=== PATIENT | female | born 1960 | race Caucasian/White ===

== ENCOUNTER 2020-10-29 07:25 | Observation (INO) | payer MEDICARE, SELFPAY ==
[2020-10-29] VITALS (11 sets, daily range): BP systolic 104–133; BP diastolic 48–71; PULSE 52–74; RESP 12–18; TEMP 36–36.3; O2SAT 95–100; BMI 34.2
--- NOTE | ~2020-10-29 | CT_ITS ---
EXAMINATION: CT brain wo con DATE: 10/29/2020 08:07 INDICATION: Fall yesterday. Altered mental state. Lethargy, slurred speech, vomiting. TECHNIQUE: Computed tomography (CT) of the head was performed without intravenous contrast. The mA wa s adjusted according to patient size. Iterative reconstruction technique was employed. Exam dose: 60 5.33 mGy-cm total exam DLP. COMPARISON: 10/18/2018 CT brain FINDINGS: Right parietal craniotomy is again noted, with chronic underlying surgical clips and enceph alomalacia of the right frontoparietal area extending into the right basal ganglia, stable since 10/18. There is compensatory dilatation of the body and trigone of the right lateral ventricle. No intracranial mass lesion or hemorrhage or recent cerebrovascular accident, midline shift or mass e ffect effect or subdural or epidural hematoma is detected. No fracture or bone destruction of the cranial vault. There is patchy opacification of ethmoid air cells bilaterally and extensive opacification of the rig ht sphenoid sinus, mild mucoperiosteal thickening of the frontal sinuses and left sphenoid sinus. The maxillary sinuses are largely excluded from this examination. The mastoid air cells are unremarkable. IMPRESSION: Status post right craniotomy. Chronic right frontal encephalomalacia, stable since 2008 No acute intracranial finding or significant change since 10/18/2008 Reviewed, dictated and finalized at [facility] Reviewed, dictated and finalized at [facility]. IMPRESSION: Status post right craniotomy. Chronic right frontal encephalomalac ia, stable since 10/18/2008 No acute intracranial finding or significant change since 10/18/2008
--- NOTE | ~2020-10-29 | CT_ITS ---
EXAMINATION: CT cervical spine wo con DATE: 10/29/2020 08:07 INDICATION: Patient fell yesterday. Altered mental state. Vomiting, lethargy, slurred speech. TECHNIQUE: Computed tomography (CT) of the cervical spine was performed without intravenous contrast. Automated exposure control and iterative reconstruction technique were employed. Exam dose: 401.38 mGy-cm total exam DLP. COMPARISON: None FINDINGS: C1 and C2 are normally aligned and the odontoid process is intact. No fracture or dislocati on or locked facet or prevertebral soft tissue swelling. There is severe degenerative disc disease at C5-6 and C6-7. There is degenerative change at the apoph yseal joints throughout the cervical spine. Prominent uncovertebral joint spurring at C5-6 and C6-7. IMPRESSION: Cervical spondylosis; no fracture or dislocation or locked facet Reviewed, dictated and finalized at [facility] Reviewed, dictated and finalized at [facility].
--- NOTE | 2020-10-29 07:33 | ECG_ITS ---
Measurements Intervals [place] Rate: 68 P: 37 NE: 189 QRS: 28 QRSD: 110 T: 64 QT: 399 QTc: 426 Interpretive Statements SINUS RHYTHM INCOMPLETE RIGHT BUNDLE BRANCH BLOCK BASELINE ARTIFACT- I, II, III, AVR, AVL, AVF, V1-V3 BORDERLINE ECG Electronically Signed On 10-29-2020 7:36:22 CDT by Malachi Davidson D.O.
[2020-10-29 07:34] LABS: Glucose Point of Care 157 (65-105)
--- NOTE | 2020-10-29 07:58 | ED.GENADULT ---
HPI - General Adult General Chief complaint: Altered Mental Status Stated complaint: altered loc/fall yest/slurred speech Time Seen by Provider: 10/29/20 07:31 Source: patient, family and EMS History of Present Illness HPI narrative: Patient is a 60 y/o female brought in by EMS for altered mental status. Per , patient fell around 11:00 PM last and she was not able to get up. She slept on floor overnight and noticed she was confused around 6:00 AM. He states that she falls frequent and she had history of stroke resulting in left sided weakness. However, she is usually awake and alert at baseline. Patient is confused and unable to provide additional reliable history. Related Data Home Medications Medication Instructions Recorded Confirmed Unable to Obtain Home Medications 10/29/20 10/29/20 Allergies Allergy/AdvReac Type Severity Reaction Status Date / Time Penicillins Allergy Unknown Verified 10/29/20 11:39 [facility] Past Medical History Medical History (Updated 10/29/20 @ 14:47 by Maine Moreira MD) Cerebral aneurysm Status post coiling. Chronic pain syndrome Chronic back pain and lower extremity pain due to venous stasis ulcers. On long-term opioids and medical marijuana. 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 Residual left-sided weakness. Venous stasis ulcer Surgical History Surgical History (Updated 10/29/20 @ 14:43 by Salima Pratt PA-C) History of 2 sections History of colostomy History of craniotomy Related to cerebral aneurysm rupture and hemorrhagic stroke at the age of 20. History of hysterectomy Status post coil embolization of cerebral aneurysm Family History Family History (Updated 10/29/20 @ 14:32 by Salima Pratt PA-C) Mother Diabetes mellitus Sibling Diabetes mellitus Sibling Leukemia Other Family history of arthritis Social History Social History (Updated 10/29/20 @ 14:31 by Salima Pratt PA-C) Social History: Surrogate decision maker: Seymour Urias, . Code status: Full code. Smoking status: Former smoker Alcohol intake: never Substance use: current Substance use type: marijuana Other substance usage details: Medical marijuana. Last use: 10/28/2020 Additional living arrangements comments: Resides in [place] with her . Additional occupation/education comments: Disabled. Gender identity (if verbalized by the patient): Female Spiritual care concerns: No Exam Const: General: no acute distress and well developed Orientation/consciousness: oriented to person, oriented to place, confusion and Other orientation findings (disoriented to time) HENMT: Head: normocephalic Ears: external ears normal General nose exam: Normal external nose present Eyes: General: appearance normal, both eyes and all related structures Conjunctivae: conjunctivae normal Neck: Neck: normal visual inspection and full ROM Chest: Chest palpation & inspection: normal inspection of the chest and no tenderness Resp: Effort & Inspection: normal respiratory effort Auscultation: clear to auscultation bilaterally Cardio: Rate: regular rate Rhythm: regular rhythm GI: Inspection: other (ileostomy bag in place) GI Palp: No abdominal tenderness and Yes Soft to palpation Skin: General skin exam: normal color and turgor normal Wounds: wounds noted (bilateral ulcer on medial maleolus consistent with venous stasis) Neuro: General: oriented to person and oriented to place Motor exam (neuro): Other motor observations present (left hemiparesis) Extrem: General: other (left arm contracted) Psych: Appearance: grossly normal Mental Status: mental status grossly normal Affect: normal affect Course Consultations Consultation #1: Discussed with Dr. Perry, who agrees to admit. Date: 10/29/20 Time: 09:54 Vital Signs Vital signs: Vital
[2020-10-29 08:14] LABS: Basophils Percent Auto 0.2 % (0.2-1.2); Eosinophils Percent Auto 0.2 % (0-4.4); Hematocrit 39.8 % (37.0-47.0); Hemoglobin 13.4 g/dL (12.0-15.0); Immature Granulocyte Absolute 0.01 K/mm3 (0.00-0.031); Immature Granulocyte Percent A 0.2 % (0-0.5); Immature Platelet Fraction Pct 3.6 % (0.9-11.2); Lymphocytes Absolute Auto 0.53 K/mm3 (0.9-3.2); Lymphocytes Percent Auto 8.5 % (18.3-44.2); Mean Corpuscular HGB Conc 33.7 g/dl (32-36); Mean Corpuscular Hemoglobin 33.3 pg (26-34); Mean Corpuscular Volume 98.8 fl (80-100); Mean Platelet Volume 10.1 fl (7.4-10.4); Monocytes Absolute Auto 0.4 K/mm3 (0.1-0.6); Monocytes Percent Auto 6.6 % (2.6-8.5); Neutrophils Absolute Auto 5.2 K/mm3 (1.3-6.7); Neutrophils Percent Auto 84.3 % (45.5-73.1); Platelet Count Result 145 k/mm3 (150-375); Red Blood Count 4.03 M/mm3 (4.2-5.4); Red Cell Distribution Width 12.8 % (11.5-14.5); White Blood Count 6.2 K/mm3 (4.5-10.0)
[2020-10-29 08:18] LABS: Add Urine Microscopic? YES; Appearance Urine Clear (Clear); Bilirubin Urine Negative (Negative); Blood Urine Negative (Negative); Color Urine Yellow (Yellow); Glucose Urine UA Negative (Negative); Ketones Urine Negative (Negative); Leukocyte Esterase Ur Negative LEU/UL (Negative); Nitrate Urine Negative (Negative); Protein Urine Negative (Negative); Specific Grav Ur 1.025 (1.001-1.035); Squamous Epithelial Cell Urine Occasional /hpf (Few); Urobilinogen Urine Negative mg/dL (<2.0); WBC Urine 0-3 /hpf
[2020-10-29 08:23] LABS: Alanine Aminotransferase 19 U/L (4-35); Albumin Level 4.4 g/dL (3.5-5.1); Alkaline Phosphatase 160 U/L (38-126); Anion Gap 9 mmol/L (8-16); Aspartate Amino Transferase 37 U/L (14-36); Bilirubin,Total 0.5 mg/dL (0.2-1.3); Blood Urea Nitrogen 12 mg/dL (7-17); Calcium 10.2 mg/dL (8.4-10.2); Carbon Dioxide 25 mmol/L (22-30); Chloride 103 mmol/L (98-107); Estimated CRCL calculation 169 ml/min; Estimated Glomerular Filt Rate > 60; Glucose 162 mg/dL (65-105); Potassium 3.2 mmol/L (3.4-5.0); Sodium 137 mmol/L (137-145)
[2020-10-29 08:28] LABS: Creatine Kinase 96 U/L (30-135)
[2020-10-29 08:30] LABS: Amphetamine Screen Urine Negative (Negative); Barbiturate Screen Urine Negative (Negative); Benzodiazepines Screen Urine Negative (Negative); Cannabinoid Screen Urine Positive (Negative); Cocaine Screen Urine Negative (Negative); Methadone Screen Urine Negative (Negative); Opiate Screen Urine Negative (Negative); Phencyclidine Screen Urine Negative (Negative)
[2020-10-29 08:31] LABS: Ethanol < 10 mg/dL (<10)
[2020-10-29 08:39] LABS: Lactic Acid Reflex 1.3 mmol/L (0.7-2.1)
[2020-10-29 08:41] LABS: Troponin I < 0.012 ng/mL (0.000-0.034)
[2020-10-29 11:10] LABS: Troponin I < 0.012 ng/mL (0.000-0.034)
--- NOTE | 2020-10-29 11:30 | ADMGEN ---
This patient, Racquel Thomas, was admitted to 2 Medical Room 241-. Patient/family oriented to hospital policies and general routines including ID bracelet, bed and alarms, visiting hours, pain management, procedures, bathroom and other care routines, personal items, smoking policy, room service/diet, and visiting hours. Information on how to activate the Rapid Response Team has been discussed. Patient/Family are encouraged to report perceived risks to care and to ask questions if they do not understand what they are told or what they should do. Report received from MAN Lauren.
--- NOTE | 2020-10-29 13:30 | PM.IMHP ---
H&P: HPI History of Present Illness Date/Time: 10/29/20 13:30 Chief Complaint: Fall. Narrative: This is a 60-year-old female with history of seizures, hemorrhagic stroke secondary to brain aneurysm at the age of 20 with residual left-sided weakness, inflammatory bowel disease, and history of venous thromboembolism who presented to the emergency department earlier today via EMS from home for evaluation after a fall. She fell out of her bed around 23:00 last night when getting up to go to the bathroom and unfortunately she could not get herself up, even with the help of her significant, other so she lay on the floor until around 06:00 at which time she reportedly had slurred speech and altered mental status and EMS was summoned. On arrival to the emergency department she was reportedly confused however she is alert and oriented at this time. She believes that she was confused as she started taking medical marijuana yesterday and she was uncertain as to how much she should take and apparently she took twice what was prescribed. There was no mention of seizure activity and in fact she has not had a seizure since 1980, per patient report. At the time my evaluation she is alert and oriented, feels back to her baseline, and is eager to go home. The only thing that has been different over the past several days is an increase in stool output in her ostomy, and in fact she has been changing the bag 3 to 4 times a day when typically she only changes it once a day. Despite taking Pepto she continues to have increase in liquid stool output. She has no sick contacts and denies recent travel and antibiotics use. She also denies headache, fever, chills, sweats, cold and flu symptoms, chest pain, shortness of breath, pleuritic pain, nausea, vomiting, and dysuria. Review of Systems Review of Systems: Narrative: Twelve systems were reviewed with pertinent positives and negatives as per HPI. She admits to falling more often than she would like, and has residual left-sided weakness from previous stroke as detailed above. She used to have a brace on her leg but no longer uses that in typically ambulates with a walker. She hit her head in the fall couple of weeks ago but denies loss of consciousness. She did not have any head trauma with the fall last night, reportedly. She has chronic pain in her back and lower extremities due to chronic venous stasis and she has previously been on methadone but is now on oxycodone and more recently was started on medical marijuana as detailed above. Except as documented, all other systems were reviewed and are negative. [facility] Past Medical History Medical History Cerebral aneurysm Status post coiling. Chronic pain syndrome Chronic back pain and lower extremity pain due to venous stasis ulcers. On long-term opioids and medical marijuana. 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 Residual left-sided weakness. Venous stasis ulcer Surgical History Surgical History History of 2 sections History of colostomy History of craniotomy Related to cerebral aneurysm rupture and hemorrhagic stroke at the age of 20. History of hysterectomy Status post coil embolization of cerebral aneurysm Family History Family History (Updated 10/29/20 @ 14:32 by Salima Pratt PA-C) Mother Diabetes mellitus Sibling Diabetes mellitus Sibling Leukemia Other Family history of arthritis Social History Social History (Updated 10/29/20 @ 14:31 by Salima Pratt PA-C) Social History: Surrogate decision maker: Seymour Urias, . Code status: Full code. Smoking status: Former smoker Alcohol intake: never Substance use: current Substance use type: marijuana Other substance usage details: Medical marijuana. L
[2020-10-29 13:39] LABS: Troponin I < 0.012 ng/mL (0.000-0.034)
[2020-10-29 17:13] LABS: Hemoglobin A1C 5.1 % (<5.7)
[2020-10-29 17:18] LABS: Anion Gap 4 mmol/L (8-16); Blood Urea Nitrogen 9 mg/dL (7-17); Calcium 10.2 mg/dL (8.4-10.2); Carbon Dioxide 30 mmol/L (22-30); Chloride 106 mmol/L (98-107); Creatine Kinase 133 U/L (30-135); Estimated CRCL calculation 132 ml/min; Estimated Glomerular Filt Rate > 60; Glucose 107 mg/dL (65-105); Magnesium 2.2 mg/dL (1.6-2.3); Potassium 3.5 mmol/L (3.4-5.0); Sodium 140 mmol/L (137-145)
[2020-10-29 18:09] LABS: Vitamin B12 > 1000.0 pg/mL (239-931)
[2020-10-30] VITALS: PULSE 75
[2020-10-30] MEDS: TOLTERODINE TARTRATE 2 MG TABLET PO ×2 (00:19→08:23)
[2020-10-30] MEDS: RIVAROXABAN 20 MG TABLET PO (00:20)
--- NOTE | 2020-10-30 00:34 | PC.NURSE ---
Addendum entered by Gage Alexander RN 10/30/20 01:02: Dr Be has been notified of non-admin and pt bringing med from home Original Note: pt states generic carbamazepine will cause her to have seizures, she is only able to take brand name Tegretol. Pt states she can have this medication brought in from home today 10/30.
[2020-10-30 04:00] VITALS: PULSE 79
[2020-10-30 05:32] LABS: Anion Gap 1 mmol/L (8-16); Blood Urea Nitrogen 8 mg/dL (7-17); Calcium 9.7 mg/dL (8.4-10.2); Carbon Dioxide 29 mmol/L (22-30); Chloride 110 mmol/L (98-107); Estimated CRCL calculation 132 ml/min; Estimated Glomerular Filt Rate > 60; Glucose 98 mg/dL (65-105); Potassium 3.5 mmol/L (3.4-5.0); Sodium 140 mmol/L (137-145)
[2020-10-30 05:48] VITALS: BP 120/50; PULSE 101; RESP 18; TEMP 36.5; O2SAT 99
[2020-10-30 08:00] VITALS: PULSE 79
[2020-10-30] MEDS: FUROSEMIDE 40 MG TABLET PO (08:23)
[2020-10-30] MEDS: POTASSIUM CHLORIDE 20 MEQ TABLET.ER PO (08:23)
[2020-10-30] MEDS: COLLAGENASE OINT 30 GM TUBE 1 APPLIC TOPICAL (08:24)
--- NOTE | 2020-10-30 08:52 | PHAR ---
PATIENT HOME MEDICATION OF TEGRETOL 200MG HAS BEEN VERIFIED
--- NOTE | 2020-10-30 09:40 | PM.DS ---
DS: Admitting Diagnosis Admitting Diagnosis Admitting Diagnosis: Fall, altered mental status DS: Discharge Diagnosis Discharge Diagnosis (1) Fall from bed: Code(s): W06.XXXA - Fall from bed, initial encounter Status: Acute Assessment and Plan: Patient had a fall from bed on 10/28/2020 and was unable to get herself up off of the floor, therefore she slept on the floor throughout the night. CK at presentation was within normal limits. Head CT showed no acute intracranial findings with evidence of chronic, stable encephalomalacia s/p right craniotomy. Seizure, syncope, and CVA felt to be very unlikely. She was evaluated by PT/OT and had no ongoing therapy requirements. Fall precautions discussed at length, especially in light of systemic anticoagulation use which puts her at risk for injury/bleeding. (2) Hypokalemia: Code(s): E87.6 - Hypokalemia Status: Acute Assessment and Plan: Potassium was slightly decreased at presentation at 3.2, likely due to loose stools over the past few days prior to admission. Potassium was supplemented appropriately and levels improved. Because she is on furosemide, I have initiated her on daily potassium supplementation. We will do liquid potassium supplement daily given her concurrent anticholinergic therapy. Repeat BMP in 1 week. (3) Confusion: Code(s): R41.0 - Disorientation, unspecified Status: Acute Assessment and Plan: Presented with confusion which was felt to likely be related to polysubstance use including oxycodone and medical marijuana. She had just taken her 1st dose of medical marijuana and reports she took two times the recommended amount because she did not know how much to take. Upon my evaluation, she was at her baseline mental status and was A&O x4. I have instructed her to avoid any further medical marijuana use until she has been evaluated by prescribing provider to determine if this medication should be continued. (4) Loose stools: Code(s): R19.5 - Other fecal abnormalities Status: Acute Assessment and Plan: She had been having looser stool output noted in ostomy bag a few days prior to admission. This did improve with Imodium. She had no underlying signs or symptoms to suggest infectious process. Started on probiotic. I encouraged her to monitor stool patterns closely and follow-up should diarrhea persist or worsen. (5) Seizure disorder: Code(s): G40.909 - Epilepsy, unspecified, not intractable, without status epilepticus Status: Acute Assessment and Plan: No seizure-like activity. Continue home Tegretol regimen (6) Venous stasis ulcer: Code(s): I83.009 - Varicose veins of unspecified lower extremity with ulcer of unspecified site; L97.909 - Non-pressure chronic ulcer of unspecified part of unspecified lower leg with unspecified severity Status: Acute Assessment and Plan: She has chronic venous stasis ulcers of her lower limb. She is established with vascular surgeon, Dr. Jiménez and applies Santyl ointment to wounds daily. She was evaluated by wound RN and no changes were recommended at this time. Continue present management and follow-up with Dr. Jiménez. DS: Summary Hospital Course Reason for hospitalization: Fall, altered mental status Hospital Course: Date of admission: 10/29/2020 Date of discharge: 10/30/2020 Racquel Thomas is a 60-year-old female with a history of stroke due to intracerebral hemorrhage s/p craniotomy, cerebral aneurysm s/p coil embolization, seizure disorder, inflammatory bowel disease, and chronic pain syndrome who presented to the emergency department on 10/29/2020 after suffering a fall from her bed at home. She was confused upon presentation after using her medical marijuana for the 1st time and taking double her prescribed amount. Upon presentation to the emergency department, her vital signs were stable, CBC unremarka
[2020-11-01 05:18] LABS: Prolactin 23.5 ng/mL (***)
== END 2020-10-30 10:50 | disposition home or self-care (01) ==
LOC: ANHED 08:47 → ANH2MED 11:01
PROVIDERS: Physician Assistant; Admitting Provider Family Medicine; Emergency Provider Emergency Medicine; Visit Provider Physician Assistant
DX: R41.0 Disorientation, unspecified (principal); E87.6 Hypokalemia; W06.XXXA Fall from bed, initial encounter; R19.5 Other fecal abnormalities; G40.909 Epilepsy, unspecified, not intractable, without status epilepticus; L97.909 Non-pressure chronic ulcer of unspecified part of unspecified lower leg with unspecified severity; I83.009 Varicose veins of unspecified lower extremity with ulcer of unspecified site; G89.4 Chronic pain syndrome; I69.354 Hemiplegia and hemiparesis following cerebral infarction affecting left non-dominant side; Z79.899 Other long term (current) drug therapy
CPT/HCPCS: 36415; 51701; 70450; 72125; 80048; 80053; 80156; 80307; 81001; 82550; 82607; 82948; 83036; 83605; 83735; 84146; 84443; 84484; 85025; 85055; 93005; 96365; 96366; 97161; 97165; 99285; A9270; G0378; J3480; J7060

== ENCOUNTER 2021-08-04 15:12 | Emergency (ER) | payer MEDICARE, SELFPAY ==
--- NOTE | 2021-08-04 15:18 | ED.WOUNDLAC ---
HPI - Wound/Laceration General Chief Complaint: Wound/Laceration Stated Complaint: Sore on Leg Time Seen by Provider: 08/04/21 15:28 Source: patient, family (), RN notes reviewed and old records reviewed Mode of arrival: ambulatory Limitations: no limitations History of Present Illness HPI narrative: 60-year-old female presents to the [facility] with complaints of a sore to her leg. Has a history of venous ulcers. patient and both report it started as an ingrown Hair and looked like a pimple, Last night it popped and today has had increased redness. Patient states that there is no increase swelling. Reports that last night puss drained from it. Has a wound care dr that manages her other sores. History of a stroke. Left side affected with left arm being contracted. Related Data Home Medications Medication Instructions Recorded Confirmed Santyl 1 applic TOPICAL DAILY 10/29/20 08/04/21 Xarelto 20 mg PO HS 10/29/20 08/04/21 carbamazepine [Tegretol] 200 mg PO QID 10/29/20 08/04/21 furosemide 40 mg PO DAILY 10/29/20 08/04/21 oxycodone 10 mg PO BID PRN 10/29/20 08/04/21 tolterodine 2 mg PO BID 10/29/20 08/04/21 Allergies Allergy/AdvReac Type Severity Reaction Status Date / Time Penicillins Allergy Unknown Verified 08/04/21 15:13 carbamazepine AdvReac Unknown SEE NOTES Verified 08/04/21 15:13 Review of Systems Review of Systems: All systems reviewed & are unremarkable except as noted in HPI and below Constitutional: Constitutional: Reports no additional constitutional complaints, Denies chills and Denies fever(s) Eyes: Eyes: Reports no additional eye complaints ENT: Reports system reviewed and no additional complaints, except as documented Cardiovascular: Cardiovascular: Reports no additional cardiovascular complaints and Denies chest pain Respiratory: Respiratory: Reports no additional respiratory complaints, Denies cough and Denies dyspnea Gastrointestinal: Gastrointestinal: Reports no additional gastrointestinal complaints, Denies abdominal pain, Denies nausea and Denies vomiting Musculoskeletal: Musculoskeletal: Reports no additional musculoskeletal complaints Integumentary/Breasts: Skin/Breast: Reports as per HPI and Reports erythema (right anterior thornton) Neurologic: Reports system reviewed and no additional complaints, except as documented Psychiatric: Psychiatric: Reports no additional psychiatric complaints Allergic/Immunologic: Allergic/Immunologic: Reports no additional allergic/immunologic complaints [facility] Past Medical History Medical History Cerebral aneurysm Status post coiling. Chronic pain syndrome Chronic back pain and lower extremity pain due to venous stasis ulcers. On long-term opioids and medical marijuana. 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 Residual left-sided weakness. Venous stasis ulcer Surgical History Surgical History History of 2 sections History of colostomy History of craniotomy Related to cerebral aneurysm rupture and hemorrhagic stroke at the age of 20. History of hysterectomy Status post coil embolization of cerebral aneurysm Family History Family History Mother Diabetes mellitus Sibling Diabetes mellitus Sibling Leukemia Other Family history of arthritis Social History Social History Social History: Surrogate decision maker: Seymour Urias, . Code status: Full code. Smoking status: Former smoker Alcohol intake: never Substance use: current Substance use type: marijuana Other substance usage details: Medical marijuana. Last use: 10/28/2020 Additional living arrangements comments: Resides in [place] with her . Ad
[2021-08-04 15:29] VITALS: BP 135/54; PULSE 79; RESP 18; TEMP 37.3; O2SAT 100
== END 2021-08-04 15:44 | disposition home or self-care (01) ==
PROVIDERS: Emergency Provider Nurse Practitioner
DX: L02.415 Cutaneous abscess of right lower limb (principal); L03.115 Cellulitis of right lower limb; Z87.891 Personal history of nicotine dependence; I69.354 Hemiplegia and hemiparesis following cerebral infarction affecting left non-dominant side; I87.8 Other specified disorders of veins
CPT/HCPCS: 87070; 87075; 87147; 87181; 87186; 87205; 99213; G0463

== ENCOUNTER 2022-04-03 14:14 | Emergency (ER) | payer MEDICARE, MEDICAID, SELFPAY ==
--- NOTE | 2022-04-03 14:19 | ED.UPPEXIN ---
HPI - Extremity Injury (Upper) General Chief Complaint: Extremity Injury, Upper Stated Complaint: Rt Hand Injury Time Seen by Provider: 04/03/22 14:19 Source: patient and RN notes reviewed History of Present Illness HPI narrative: Patient is a 61-year-old female who presents the urgent care with complaints of right hand abrasions. Patient states that she slipped while cutting wood and her hand scraped up against the wood. Patient had a stroke when she was 20 and does not have use of the left upper extremity. Patient ambulates with a cane. States that she applied a pressure but has not clean the wound. States that happened approximately 20 minutes prior to arrival. Patient takes Xarelto. No other acute complaints or injuries. No acute distress noted. Patient aware of the plan of care. Some parts of this dictation were generated by voice recognition software and may contain typographical and/or grammatical inaccuracies. Related Data Home Medications Medication Instructions Recorded Confirmed carbamazepine 200 mg tablet 200 mg PO QID 10/29/20 08/04/21 (Tegretol) collagenase clostridium histo. 250 1 applic topical DAILY 10/29/20 08/04/21 unit/gram topical ointment (Santyl) furosemide 40 mg tablet 40 mg PO DAILY 10/29/20 08/04/21 oxycodone 10 mg tablet 10 mg PO BID PRN Pain (Scale Score 10/29/20 08/04/21 7-10) rivaroxaban 20 mg tablet (Xarelto) 20 mg PO HS 10/29/20 08/04/21 tolterodine 2 mg tablet 2 mg PO BID 10/29/20 08/04/21 Allergies Allergy/AdvReac Type Severity Reaction Status Date / Time Penicillins Allergy Unknown Verified 04/03/22 14:40 carbamazepine AdvReac Unknown SEE NOTES Verified 04/03/22 14:40 Review of Systems Review of Systems: CONSTITUTIONAL: Denies fever, chills, or sweats. EYES: Denies visual changes, redness, or discharge. ENT: Denies rhinorrhea, congestion, sore throat, or otalgia. CARDIOVASCULAR: Denies chest pain, palpitations, or edema. RESPIRATORY: Denies cough or dyspnea. GASTROINTESTINAL: Denies abdominal pain, nausea, vomiting, or diarrhea. GENITOURINARY: Denies dysuria or hematuria. SKIN: Denies rash or itching. MUSCULOSKELETAL: Reports of abrasions to the right hand and wrist NEUROLOGIC: Denies headache, numbness, or weakness. All other systems reviewed are negative, except as documented in HPI. [facility] Past Medical History Medical History Cerebral aneurysm Status post coiling. Chronic pain syndrome Chronic back pain and lower extremity pain due to venous stasis ulcers. On long-term opioids and medical marijuana. 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 Residual left-sided weakness. Venous stasis ulcer Surgical History Surgical History History of 2 sections History of colostomy History of craniotomy Related to cerebral aneurysm rupture and hemorrhagic stroke at the age of 20. History of hysterectomy Status post coil embolization of cerebral aneurysm Family History Family History Mother Diabetes mellitus Sibling Diabetes mellitus Sibling Leukemia Other Family history of arthritis Social History Social History Social History: Surrogate decision maker: Seymour Urias, . Code status: Full code. Smoking status: Former smoker Alcohol intake: never Substance use: current Substance use type: marijuana Other substance usage details: Medical marijuana. Last use: 10/28/2020 Additional living arrangements comments: Resides in [place] with her . Additional occupation/education comments: Disabled. Gender identity (if verbalized by the patient): Female Spiritual care concerns: No Comments At the time of my signature, I reviewed and agree wi
[2022-04-03 14:30] VITALS: BP 119/51; PULSE 63; RESP 18; TEMP 36.8; O2SAT 99
[2022-04-03] MEDS: TETANUS,DIPHTHERIA,AC PERTUSSIS ADULT (0.5 ML) BOOSTRIX IM (14:43)
== END 2022-04-03 15:03 | disposition home or self-care (01) ==
PROVIDERS: Emergency Provider Nurse Practitioner Family
DX: S60.511A Abrasion of right hand, initial encounter (principal); S60.811A Abrasion of right wrist, initial encounter; W22.8XXA Striking against or struck by other objects, initial encounter; Z23 Encounter for immunization; I69.354 Hemiplegia and hemiparesis following cerebral infarction affecting left non-dominant side; Z87.891 Personal history of nicotine dependence; Z79.01 Long term (current) use of anticoagulants; G40.909 Epilepsy, unspecified, not intractable, without status epilepticus; I87.8 Other specified disorders of veins
CPT/HCPCS: 90471; 90715; 99212; G0463

== ENCOUNTER 2022-08-18 12:33 | Emergency (ER) | payer MEDICARE, MEDICAID, SELFPAY ==
--- NOTE | ~2022-08-18 | XR_ITS ---
XR knee RT min 4V 08/18/2022 13:41 Indication: Right knee pain Procedure: 5 views right knee Comparison: No prior studies for comparison. Findings: There is moderate-severe osteoarthritis of the knee. Osteopenia. There is a large joint eff usion. No acute fracture or traumatic malalignment. There is degenerative remodeling of the patella. Impression: 1: Moderate-severe osteoarthritis. 2: Large joint effusion. Reviewed, dictated and finalized at location A. [facility] Impression: 1: Moderate-severe osteoarthritis. 2: Large joint effusion.
--- NOTE | 2022-08-18 12:53 | ED.LOWEXIN ---
HPI - Extremity Injury (Lower) General Chief Complaint: Extremity Injury, Lower Stated Complaint: rt knee injury Related Data Home Medications Medication Instructions Recorded Confirmed furosemide 40 mg tablet 40 mg PO DAILY 10/29/20 08/18/22 rivaroxaban 20 mg tablet (Xarelto) 20 mg PO HS 10/29/20 08/18/22 aspirin 81 mg capsule 81 mg PO DAILY 08/18/22 08/18/22 cannabidiol 100 mg/mL oral solution 100 mg PO DAILY 08/18/22 08/18/22 dulaglutide 0.75 mg/0.5 mL 1 mg subcut DAILY 08/18/22 08/18/22 subcutaneous pen injector Allergies Allergy/AdvReac Type Severity Reaction Status Date / Time Penicillins Allergy Unknown Verified 08/18/22 13:24 carbamazepine AdvReac Unknown SEE NOTES Verified 08/18/22 13:24 [facility] Past Medical History Medical History Cerebral aneurysm Status post coiling. Chronic pain syndrome Chronic back pain and lower extremity pain due to venous stasis ulcers. On long-term opioids and medical marijuana. 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 Residual left-sided weakness. Venous stasis ulcer Surgical History Surgical History History of 2 sections History of colostomy History of craniotomy Related to cerebral aneurysm rupture and hemorrhagic stroke at the age of 20. History of hysterectomy Status post coil embolization of cerebral aneurysm Family History Family History Mother Diabetes mellitus Sibling Diabetes mellitus Sibling Leukemia Other Family history of arthritis Social History Social History Social History: Surrogate decision maker: Seymour Urias, . Code status: Full code. Smoking status: Former smoker Alcohol intake: never Substance use: current Substance use type: marijuana Other substance usage details: Medical marijuana. Last use: 10/28/2020 Additional living arrangements comments: Resides in [place] with her . Additional occupation/education comments: Disabled. Gender identity (if verbalized by the patient): Female Spiritual care concerns: No Course Vital Signs Vital signs: Vital Signs Temperature 36.9 C 08/18/22 13:04 Pulse Rate 69 08/18/22 13:04 Respiratory Rate 18 08/18/22 13:04 Blood Pressure 91/61 L 08/18/22 13:04 Pulse Oximetry 99 08/18/22 13:04 Oxygen Delivery Room Air 08/18/22 13:04 Temperature 36.9 C 08/18/22 13:04 Pulse Rate 69 08/18/22 13:04 Respiratory Rate 18 08/18/22 13:04 Blood Pressure 91/61 L 08/18/22 13:04 Pulse Oximetry 99 08/18/22 13:04 Oxygen Delivery Room Air 08/18/22 13:04 Discharge Plan Discharge Clinical Impression: Osteoarthritis, Effusion of knee joint right Patient Disposition: Home, Self-Care Condition: Stable Instructions: Antibiotic Form, Osteoarthritis (ED), Swollen Knee Joint (ED) Additional Instructions: X-ray is negative for any sign of fracture but shows moderate to severe osteoarthritis of the right knee as well as as a large knee joint effusion. Continue current medications Rest, ice, elevate, and wear stewart wrap as directed Tylenol/motrin for pain as discussed. Gradually bear weight-may benefit from using a walker Follow up with your PCP if symptoms persist more than 1 week. Prescriptions: No Action dulaglutide 0.75 mg/0.5 mL Pen Injector 1 mg SUBCUT DAILY cannabidiol 100 mg/mL Solution 100 mg PO DAILY aspirin 81 mg Capsule 81 mg PO DAILY furosemide 40 mg Tablet 40 mg PO DAILY Xarelto 20 mg tablet 20 mg PO HS potassium chloride 20 mEq/15 mL liquid 20 meq PO DAILY Qty: 600 0RF Follow-up/Referrals: Nayely Singh [Other] Time of Disposition: 14:11
[2022-08-18 13:04] VITALS: BP 91/61; PULSE 69; RESP 18; TEMP 36.9; O2SAT 99
--- NOTE | 2022-08-18 14:43 | ED.LOWEXIN ---
HPI - Extremity Injury (Lower) General Chief Complaint: Extremity Injury, Lower Stated Complaint: rt knee injury Time Seen by Provider: 08/18/22 13:10 Source: patient Mode of arrival: ambulatory Limitations: no limitations History of Present Illness HPI Narrative: Racquel is a 61-year-old female patient presenting to the clinic today with complaints of right knee pain for the past few days. She reports that she hit her knee against an oak chair at home and she is having pain to the lateral and anterior knee joint. She reports that her knee is swelling and causing her veins on her leg to show. Patient is taking Xarelto. Related Data Home Medications Medication Instructions Recorded Confirmed furosemide 40 mg tablet 40 mg PO DAILY 10/29/20 08/18/22 rivaroxaban 20 mg tablet (Xarelto) 20 mg PO HS 10/29/20 08/18/22 aspirin 81 mg capsule 81 mg PO DAILY 08/18/22 08/18/22 cannabidiol 100 mg/mL oral solution 100 mg PO DAILY 08/18/22 08/18/22 dulaglutide 0.75 mg/0.5 mL 1 mg subcut DAILY 08/18/22 08/18/22 subcutaneous pen injector Allergies Allergy/AdvReac Type Severity Reaction Status Date / Time Penicillins Allergy Unknown Verified 08/18/22 13:24 carbamazepine AdvReac Unknown SEE NOTES Verified 08/18/22 13:24 Review of Systems Review of Systems: Pertinent positives per HPI. Patient denies any fever, chills, rash, headache, visual changes, dizziness, cough, runny nose, sore throat, shortness of breath, chest pain, palpitations, nausea, vomiting, diarrhea, constipation, abdominal pain, or any urinary issues. [facility] Past Medical History Medical History Cerebral aneurysm Status post coiling. Chronic pain syndrome Chronic back pain and lower extremity pain due to venous stasis ulcers. On long-term opioids and medical marijuana. 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 Residual left-sided weakness. Venous stasis ulcer Surgical History Surgical History History of 2 sections History of colostomy History of craniotomy Related to cerebral aneurysm rupture and hemorrhagic stroke at the age of 20. History of hysterectomy Status post coil embolization of cerebral aneurysm Family History Family History Mother Diabetes mellitus Sibling Diabetes mellitus Sibling Leukemia Other Family history of arthritis Social History Social History Social History: Surrogate decision maker: Seymour Urias, . Code status: Full code. Smoking status: Former smoker Alcohol intake: never Substance use: current Substance use type: marijuana Other substance usage details: Medical marijuana. Last use: 10/28/2020 Additional living arrangements comments: Resides in [place] with her . Additional occupation/education comments: Disabled. Gender identity (if verbalized by the patient): Female Spiritual care concerns: No Comments At the time of my signature, I reviewed and agree with the nursing past medical, surgical, social, and family history. There is no relevant family history pertinent to the patient complaint. Exam Narrative: General: Well-developed, well nourished, in no apparent distress Head: Normocephalic, atraumatic. Cardio: Regular rate and rhythm, s1 and s2 normal, no murmur appreciated. Resp: Clear to auscultation bilaterally, no rhonchi, rales, wheezing or rubs. Musculoskeletal: No deformity, generalized swelling to the right knee when compared to the left knee, 1+ pitting edema to the right lower extremity with some nonthrombosed varicose veins, tender to palpation over the anterior and lateral aspect of the right knee, no crepitus felt with flexion an
== END 2022-08-18 14:08 | disposition home or self-care (01) ==
PROVIDERS: Emergency Provider Nurse Practitioner Family
DX: M25.461 Effusion, right knee (principal); M17.11 Unilateral primary osteoarthritis, right knee; Z87.891 Personal history of nicotine dependence; F12.90 Cannabis use, unspecified, uncomplicated; G40.909 Epilepsy, unspecified, not intractable, without status epilepticus; I69.354 Hemiplegia and hemiparesis following cerebral infarction affecting left non-dominant side; Z79.82 Long term (current) use of aspirin
CPT/HCPCS: 73564; 99213; G0463

== ENCOUNTER 2022-08-25 09:05 | Emergency (ER) | payer MEDICARE, MEDICAID, SELFPAY ==
[2022-08-25 09:18] VITALS: BP 129/53; PULSE 79; RESP 18; TEMP 36.8; O2SAT 99
--- NOTE | 2022-08-25 13:18 | PC.NURSE ---
pt left d/t wait time
== END 2022-08-25 15:02 | disposition left against medical advice (07) ==
LOC: ANHED 14:46
DX: M79.604 Pain in right leg (principal)
CPT/HCPCS: 99199

== ENCOUNTER 2023-02-11 11:41 | Outpatient (CLI) | payer MEDICARE, MEDICAID, SELFPAY ==
--- NOTE | ~2023-02-11 | MM_ITS ---
EXAMINATION: MM diagnostic celso BI w max HISTORY: Palpable breast lump. TECHNIQUE: Additional 3-D tomosynthesis images of the breasts were performed and synthetic 2-D images were generated. CAD analysis was submitted and interpreted. COMPARISON: Mammogram dated 02/03/2009 BREAST PARENCHYMAL COMPOSITION: The breasts are heterogeneously dense, which may obscure small masses FINDINGS: There is a spiculated mass in the upper outer quadrant of the right breast which appears ne w. There are adjacent clustered indeterminate calcifications. There are new asymmetries in the upper outer quadrant of the left breast with nearby tissue marker from previous biopsy. There is possible a rchitectural distortion laterally in the area of asymmetry is on CC view. IMPRESSION: 1. New bilateral breast asymmetries with possible bilateral architectural distortion. 2. Complete bilateral breast ultrasound recommended. BI-RADS Category 0: Incomplete: Needs additional imaging evaluation. Reviewed, dictated and finalized at location A. IMPRESSION: 1. New bilateral breast asymmetries with possible bilateral architectural disto rtion. 2. Complete bilateral breast ultrasound recommended. BI-RADS Category 0: Incomplete: Needs additional imaging evaluation.
== END 2023-02-11 11:42 | disposition home or self-care (01) ==
DX: R92.8 Other abnormal and inconclusive findings on diagnostic imaging of breast (principal)
CPT/HCPCS: 77062; 77066; G0279

== ENCOUNTER 2023-02-26 10:14 | Outpatient (CLI) | payer MEDICARE, MEDICAID, SELFPAY ==
--- NOTE | ~2023-02-26 | US_ITS ---
EXAMINATION: US breast BI limited HISTORY: Bilateral breast masses on screening mammogram TECHNIQUE: Limited bilateral breast ultrasound is performed. FINDINGS: Right breast: There is a 1.7 x 1.2 cm irregular hypoechoic mass with angular margins and mixed loan adviser ior features at the 10:00 location in the right breast, 5 cm from the nipple. No definite internal va scularity is identified. There are cysts in the right breast at the 10:00 location, 5 cm from the nip ple at the 9:00 location, 7 cm from the nipple. There is a reported palpable lump of the right breast at the 4:00 location, 12 cm from the nipple without sonographic correlate. Left breast: There is a probable cluster of microcysts at the 12:00 location, 5 cm from the nipple. T here is a 5 mm cyst at the 1:00 location, 5 cm from the nipple. IMPRESSION: 1. Indeterminate mass in the right breast at the 10:00 location, 5 cm from the nipple. Ultrasound-ara ded biopsy is recommended. 2. Probable clustered microcysts of the left breast at the 12:00 location, 5 cm from the nipple. Foll ow-up targeted left breast ultrasound six months is recommended. BI-RADS category 4, suspicious findings. Reviewed, dictated and finalized at location L. IMPRESSION: 1. Indeterminate mass in the right breast at the 10:00 location, 5 cm from the nipple. Ultrasound-guided biopsy is recommended. 2. Probable clustered microcysts of the left breast at the 12:00 location, 5 cm from the nipple. Follow-up targeted left breast ultrasound six months is recom mended. BI-RADS category 4, suspicious findings.
== END 2023-02-26 10:15 | disposition home or self-care (01) ==
DX: R92.8 Other abnormal and inconclusive findings on diagnostic imaging of breast (principal); N63.11 Unspecified lump in the right breast, upper outer quadrant
CPT/HCPCS: 76642

== ENCOUNTER 2023-04-17 16:42 | Emergency (ER) | payer MEDICARE, MEDICAID, SELFPAY ==
[2023-04-17 17:15] VITALS: BP 124/51; PULSE 105; RESP 17; TEMP 36.1; O2SAT 97
--- NOTE | 2023-04-17 19:47 | PC.NURSE ---
no answer at triage
--- NOTE | 2023-04-17 20:00 | PC.NURSE ---
no answer at triage
== END 2023-04-17 20:23 | disposition left against medical advice (07) ==
LOC: ANHED 20:08
DX: K94.00 Colostomy complication, unspecified (principal)
CPT/HCPCS: 99199

== ENCOUNTER 2023-04-18 10:22 | Emergency (ER) | payer MEDICARE, MEDICAID, SELFPAY ==
--- NOTE | ~2023-04-18 | CT_ITS ---
EXAMINATION: CT abdomen pelvis w con DATE: 04/18/2023 13:40 INDICATION: Abdominal pain. Bloody output in ostomy. TECHNIQUE: Computed tomography (CT) of the abdomen and pelvis was performed with 100 CC Omnipaque 350 intravenous contrast. Automated exposure control and iterative reconstruction technique were employe d. Exam dose: 1732.88 mGy-cm total exam DLP. COMPARISON: 02/26/2023 bilateral Limited breast ultrasound 02/11/2023 bilateral diagnostic mammogram FINDINGS: 1.2 x 2 cm upper outer quadrant right breast mass. Biopsy was recommended at this location on 02/26/2023 ultrasound exam. There is minimal dependent atelectasis in the left lower lobe. The lung bases are otherwise clear of infiltrate or consolidation. Cardiomegaly. No pericardial or pleural effusion. Status post cholecystectomy. Numerous hepatic and splenic calcified granulomas consistent with old granulomatous disease. No hepat ic, splenic, pancreatic or adrenal space-occupying mass lesion is detected. There are some pancreatic calcifications suggesting chronic pancreatitis. 1 cm right renal cyst. 7 mm left renal cyst. No urinary tract calculus or hydroureteronephrosis is de tected. The urinary bladder is unremarkable. No bladder wall thickening. Status post hysterectomy. There is atherosclerotic calcification but normal caliber of the abdominal aorta. No evidence of abdo vijay aortic aneurysm. No intraperitoneal or retroperitoneal or pelvic mass lesion or adenopathy or a scites is noted. IVC filter. Bilateral common iliac vein stents. There is dilatation of the small bowel, measuring up to 4.5 cm diameter, with numerous small bowel ai r-fluid levels. The very distal small bowel appears decompressed. Distal small bowel obstruction is s uspected. There is a prominent the gas distended small bowel segment within the peristomal area of the mid vent ral abdominal wall without apparent bowel wall thickening or pneumatosis. No intraperitoneal free air is detected. No suspicious osteolytic or osteoblastic lesions. IMPRESSION: Distal small bowel obstruction is suspected Status post colectomy Cardiomegaly Chronic pancreatitis Bilateral renal cysts Status post hysterectomy Reviewed, dictated and finalized at Location A. Reviewed, dictated and finalized at location B.
[2023-04-18 10:18] VITALS: RESP 19; TEMP 36.8
[2023-04-18 10:30] VITALS: BP 105/64; PULSE 80; O2SAT 100
[2023-04-18 11:00] VITALS: BP 102/82; PULSE 85; O2SAT 100
[2023-04-18 11:52] LABS: Hematocrit 36.8 % (37.0-47.0); Hemoglobin 12.6 g/dL (12.0-15.0); Mean Corpuscular HGB Conc 34.2 g/dl (32-36); Mean Corpuscular Hemoglobin 34.5 pg (26-34); Mean Corpuscular Volume 100.8 fl (80-100); Mean Platelet Volume 11.4 fl (7.4-10.4); Platelet Count Result 145 k/mm3 (150-375); Red Blood Count 3.65 M/mm3 (4.2-5.4); Red Cell Distribution Width 13.2 % (11.5-14.5); White Blood Count 5.1 K/mm3 (4.5-10.0)
[2023-04-18 12:02] LABS: Alanine Aminotransferase 23 U/L (6-35); Albumin Level 3.3 g/dL (3.5-5.1); Alkaline Phosphatase 89 U/L (38-126); Anion Gap 8 mmol/L (8-16); Aspartate Amino Transferase 35 U/L (14-36); Bilirubin,Total 2.2 mg/dL (0.2-1.3); Blood Urea Nitrogen 61 mg/dL (7-17); Calcium 10.3 mg/dL (8.4-10.2); Carbon Dioxide 27 mmol/L (22-30); Chloride 97 mmol/L (98-107); Estimated Glomerular Filt Rate 57; Glucose 120 mg/dL (65-110); Lactic Acid Reflex 1.9 mmol/L (0.7-2.0); Potassium 3.3 mmol/L (3.4-5.0); Sodium 132 mmol/L (137-145)
[2023-04-18 12:03] LABS: Lipase < 10 U/L (23-300)
[2023-04-18 12:05] LABS: INR 1.2; Prothrombin Time 15.4 Seconds (11.1-14.7)
[2023-04-18 12:06] LABS: Partial Thromboplastin Time 36.1 SECONDS (22.3-36.8)
[2023-04-18 12:18] LABS: Appearance Urine Turbid (Clear); Bacteria Urine 4+ /hpf; Bilirubin Urine 2+ (Negative); Blood Urine Trace (Negative); Color Urine Dark Yellow (Yellow); Glucose Urine UA Negative (Negative); Ketones Urine Negative (Negative); Leukocyte Esterase Ur Trace LEU/UL (Negative); Need Manual Microscopic Reviewed; Nitrate Urine Positive (Negative); Non Pathogenic Casts >20; Protein Urine 1+ mg/dL (Negative); RBC Urine 0-2 /hpf (0-2); Specific Grav Ur 1.023 (1.001-1.035); Squamous Epithelial Cell Urine Many /hpf (Few)
[2023-04-18 12:20] LABS: Band Neutrophils Percent 25 % (0-6); Metamyelocytes Percent 2 %; Monocytes Absolute Manual 0.51 K/mm3 (0.1-0.90); Monocytes Percent Manual 10 % (3-9); Myelocytes Percent 1 %; Neutrophils Absolute Manual 4.23 K/mm3 (1.7-7.2); Neutrophils Percent Manual 58 % (46-73); Total Cells Counted 100
[2023-04-18 12:23] LABS: Platelet Estimate Decreased (Adequate)
[2023-04-18 12:24] LABS: Dohle Bodies Present (NORMAL); Schistocytes None Seen (NORMAL)
[2023-04-18 12:26] LABS: Add Urine Microscopic? YES
--- NOTE | 2023-04-18 12:29 | ED.GENADULT ---
HPI - General Adult General Chief complaint: Unspecified Stated complaint: pain/swelling to colostomy Time Seen by Provider: 04/18/23 11:32 History of Present Illness HPI narrative: 62-year-old female with history of CVA and colonoscopy. Patient states she had her colostomy placed in 2009 at [place]. Patient states over the 3 days or so she has had increased abdominal pain and has noticed some bloody output from the ostomy site. Related Data Home Medications Medication Instructions Recorded Confirmed furosemide 40 mg tablet 40 mg PO DAILY 10/29/20 08/18/22 rivaroxaban 20 mg tablet (Xarelto) 20 mg PO HS 10/29/20 08/18/22 aspirin 81 mg capsule 81 mg PO DAILY 08/18/22 08/18/22 cannabidiol 100 mg/mL oral solution 100 mg PO DAILY 08/18/22 08/18/22 dulaglutide 0.75 mg/0.5 mL 1 mg subcut DAILY 08/18/22 08/18/22 subcutaneous pen injector Allergies Allergy/AdvReac Type Severity Reaction Status Date / Time Penicillins Allergy Unknown Verified 04/18/23 10:50 carbamazepine AdvReac Unknown SEE NOTES Verified 04/18/23 10:50 Review of Systems Review of Systems: All systems reviewed & are unremarkable except as noted in HPI and below PMFSH Past Medical History Medical History Cerebral aneurysm Status post coiling. Chronic pain syndrome Chronic back pain and lower extremity pain due to venous stasis ulcers. On long-term opioids and medical marijuana. 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 Residual left-sided weakness. Venous stasis ulcer Surgical History Surgical History History of 2 sections History of colostomy History of craniotomy Related to cerebral aneurysm rupture and hemorrhagic stroke at the age of 20. History of hysterectomy Status post coil embolization of cerebral aneurysm Family History Family History Mother Diabetes mellitus Sibling Diabetes mellitus Sibling Leukemia Other Family history of arthritis Social History Social History Social History: Surrogate decision maker: Seymour Urias, . Code status: Full code. Smoking status: Former smoker Alcohol intake: never Substance use: current Substance use type: marijuana Other substance usage details: Medical marijuana. Last use: 10/28/2020 Additional living arrangements comments: Resides in [place] with her . Additional occupation/education comments: Disabled. Gender identity (if verbalized by the patient): Female Spiritual care concerns: No Exam Narrative: APPEARANCE: Well appearing, no pain, no distress, well-nourished. HEAD: normocephalic, atraumatic. EYES: PERRLA/EOMI, conjunctivae clear. NOSE: Normal no drainage NECK: Supple. No adenopathy, no masses. RESPIRATORY: Airway patent, respirations nonlabored. Clear to auscultation bilaterally, no rales, rhonchi, wheezing. CARDIOVASCULAR: Regular rate and rhythm without murmurs rubs or gallops. ABDOMINAL: Normal bowel sounds, distended abdomen, tenderness to palpation, dark appearing ostomy MUSCULOSKELETAL: Moves all extremities. Strength/ROM intact, No edema, No calf tenderness. NEURO: Alert. Cranial nerves II through XII intact. Grossly intact SKIN: Warm, dry. Normal Color Course Course Emergency Course: 62-year-old female presented the emergency department for evaluation of increased abdominal pain and decreased ostomy output. Patient is afebrile with no leukocytosis and a stable hemoglobin. No significant abnormalities on the patient's CMP. Mildly elevated T. bili at 2.2, hyperglycemia and elevated BUN at 61. Patient's lactic acid is 1.9. Patient is nitrite positive but denies any urinary symptoms. Patient h
[2023-04-18 12:30] VITALS: BP 102/66; PULSE 80; O2SAT 97
[2023-04-18] MEDS: SODIUM CHLORIDE 0.9% IV 1,000 ML 999 ML IV CONT (16:00)
[2023-04-18 16:27] VITALS: BP 109/43; PULSE 80; RESP 18; O2SAT 100
== END 2023-04-18 17:50 | disposition short-term general hospital (02) ==
PROVIDERS: Emergency Provider Emergency Medicine
DX: K56.609 Unspecified intestinal obstruction, unspecified as to partial versus complete obstruction (principal); K94.00 Colostomy complication, unspecified; Z86.73 Personal history of transient ischemic attack (TIA), and cerebral infarction without residual deficits
CPT/HCPCS: 36415; 74177; 80053; 81001; 83605; 83690; 85025; 85610; 85730; 87077; 87086; 87186; 96360; 96361; 99285; J7030; Q9967

== ENCOUNTER 2023-12-01 07:44 | Outpatient (CLI) | payer MEDICARE, MEDICAID, SELFPAY ==
--- NOTE | ~2023-12-01 | MMUS_ITS ---
MM post biopsy invasive RT, US breast biopsy RT w image EXAMINATION: US GUIDED NEEDLE BIOPSY WITH VACUUM ASSISTANCE DATE: 12/01/2023 09:27 CDT INDICATION: Right breast mass seen on recent examination. Ultrasound-guided core biopsy is requested to evaluate for malignancy. TECHNIQUE AND FINDINGS: The risks and potential benefits of the procedure were discussed with the patient, and written inform ed consent was obtained. After sterile preparation of the right breast, 1% lidocaine was utilized fo r local anesthesia. 1% lidocaine with epinephrine was used for deep anesthesia. A 10G vacuum-assisted biopsy gun needle was advanced through to the outer edge of the region of inter est from a superior approach utilizing sonographic guidance. A total of 4 tissue core samples were o btained through the lesion. An Inrad tissue marker clip was then placed at the biopsy site. Hemostas is was achieved. The patient tolerated procedure well and there was no evidence of immediate complication. The patien t was given verbal instructions partly is from the department. Right breast mammograms to document t issue marker clip placement. The tissue samples were submitted to surgical pathology for histologic a nalysis. IMPRESSION: 1. Successful ultrasound-guided vacuum-assisted biopsy of left/right breast mass with tissue marker placement. Please refer to pathology report for histologic analysis. Reviewed, dictated and finalized at location B. IMPRESSION: 1. Successful ultrasound-guided vacuum-assisted biopsy of left/right breast ma ss with tissue marker placement. Please refer to pathology report for histologi c analysis.
== END 2023-12-01 07:45 | disposition home or self-care (01) ==
DX: C50.911 Malignant neoplasm of unspecified site of right female breast (principal); Z17.0 Estrogen receptor positive status [ER+]
CPT/HCPCS: 19083; 88305; 88342; 88360; 88365; A4648

== ENCOUNTER 2023-12-11 14:21 | Outpatient (CLI) | payer MEDICARE, MEDICAID, SELFPAY ==
[2023-12-11 14:51] LABS: Basophils Percent Auto 0.6 % (0.2-1.2); Eosinophils Absolute Auto 0.1 K/mm3 (0-0.3); Eosinophils Percent Auto 1.5 % (0-4.4); Hematocrit 37.9 % (37.0-47.0); Hemoglobin 12.8 g/dL (12.0-15.0); Immature Granulocyte Absolute 0.01 K/mm3 (0.00-0.031); Immature Granulocyte Percent A 0.2 % (0-0.5); Lymphocytes Absolute Auto 1.04 K/mm3 (0.9-3.2); Lymphocytes Percent Auto 22.4 % (18.3-44.2); Mean Corpuscular HGB Conc 33.8 g/dl (32-36); Mean Corpuscular Hemoglobin 35.3 pg (26-34); Mean Corpuscular Volume 104.4 fl (80-100); Mean Platelet Volume 11.2 fl (7.4-10.4); Monocytes Absolute Auto 0.3 K/mm3 (0.1-0.6); Monocytes Percent Auto 6.9 % (2.6-8.5); Neutrophils Absolute Auto 3.2 K/mm3 (1.3-6.7); Neutrophils Percent Auto 68.4 % (45.5-73.1); Platelet Count Result 150 k/mm3 (150-375); Red Blood Count 3.63 M/mm3 (4.2-5.4); Red Cell Distribution Width 14.3 % (11.5-14.5); White Blood Count 4.7 K/mm3 (4.5-10.0)
[2023-12-11 16:36] LABS: Alanine Aminotransferase 16 U/L (6-35); Albumin Level 4.6 g/dL (3.5-5.1); Alkaline Phosphatase 122 U/L (38-126); Anion Gap 5 mmol/L (4-12); Aspartate Amino Transferase 38 U/L (14-36); Bilirubin,Total 0.9 mg/dL (0.2-1.3); Blood Urea Nitrogen 13 mg/dL (7-17); Calcium 10.4 mg/dL (8.4-10.2); Carbon Dioxide 31 mmol/L (22-30); Chloride 101 mmol/L (98-107); Estimated Glomerular Filt Rate > 60; Glucose 127 mg/dL (65-110); Potassium 3.4 mmol/L (3.4-5.0); Sodium 137 mmol/L (137-145)
[2023-12-12 12:12] LABS: CA 15-3 19 U/mL (<32)
== END 2023-12-11 14:22 | disposition home or self-care (01) ==
PROVIDERS: Visit Provider Internal Medicine Hematology & Oncology
DX: C50.511 Malignant neoplasm of lower-outer quadrant of right female breast (principal); Z17.0 Estrogen receptor positive status [ER+]
CPT/HCPCS: 36415; 80053; 85025; 86300

== ENCOUNTER 2023-12-17 09:10 | Outpatient (CLI) | payer MEDICARE, MEDICAID, SELFPAY ==
--- NOTE | 2023-12-17 | ECHO_ITS ---
Patient Info Name: Racquel Acevedo [place] Age: 63 years : 1960 Gender: Female Ht: 70 in Wt: 150 lbs BSA: 1.83 m2 HR: 60 bpm BP: 95 / 55 mmHg Technical Quality: Good Exam Date: 12/17/2023 9:45 AM Exam Location: Echo Lab Patient Status: Outpatient Admit Date: 12/17/2023 Staff Ordering Physician: Sascha Donohue MD Mercantile Reporter: Nathaniel Diop RDCS Attending Provider: Sascha Donohue MD Referring Physician: Charanjit CAN; Exam Type: CA echo doppler color flow Study Info Indications - pre chemo Complete two-dimensional, color flow and Doppler transthoracic echocardiogram is performed. Strain analysis performed. Summary 1. Complete two-dimensional, color flow and Doppler transthoracic echocardiogram is performed. 2. Left ventricular chamber dimension is normal. 3. Left ventricular systolic function is normal, estimated at 60-65%. 4. The left ventricular diastolic function is grade I diastolic dysfunction. 5. E/e' 5 is not elevated. 6. Global longitudinal strain is normal at -22.4%. 7. Left atrial chamber dimension is mildly enlarged. 8. There is trace mitral valve regurgitation. 9. No pulmonary hypertension, estimated pulmonary arterial systolic pressure is 22 mmHg. Left Ventricle E/e' 5 is not elevated. Global longitudinal strain is normal at -22.4%. Left ventricular chamber dimension is normal. Left ventricular systolic function is normal, estimated at 60-65%. The left ventricular diastolic function is grade I diastolic dysfunction. Right Ventricle Right ventricular systolic function is normal and with normal TAPSE 2.5 cm. Right ventricular chamber dimension is normal. Left Atria Left atrial chamber dimension is mildly enlarged. Right Atria Right atrial chamber dimension is normal. Aortic Valve The aortic valve is trileaflet. There is no aortic valve stenosis. There is no aortic valve regurgitation. Pulmonic Valve There is no pulmonic regurgitation. Mitral Valve There is no mitral valve stenosis. There is trace mitral valve regurgitation. Tricuspid Valve There is no tricuspid valve regurgitation. No pulmonary hypertension, estimated pulmonary arterial systolic pressure is 22 mmHg. Pericardium/Pleural There is no pericardial effusion. Inferior Vena Cava Normal inferior vena cava with >50% collapse upon inspiration consistent with normal right atrial pressure, 5 mmHg. Aorta The aortic root size at the sinus of Valsalva is normal. Left Ventricular Outflow Tract Name Value Normal LVOT 2D LVOT Diameter 2.1 cm LVOT Doppler LVOT Peak Gradient 3 mmHg LVOT Mean Gradient 2 mmHg LVOT VTI 23 cm LVOT VTI/AV VTI Ratio 0.8 LVOT Stroke Volume 81 ml LVOT CO 4.6 l/min LVOT CI 2.5 l/min/m2 Pulmonic Valve Name Value Normal PV Doppler
== END 2023-12-17 09:11 | disposition home or self-care (01) ==
LOC: ANHCARD 09:17
PROVIDERS: Visit Provider Internal Medicine Hematology & Oncology
DX: C50.511 Malignant neoplasm of lower-outer quadrant of right female breast (principal); Z17.0 Estrogen receptor positive status [ER+]; I51.7 Cardiomegaly
CPT/HCPCS: 93306; 96523

== ENCOUNTER 2023-12-23 10:42 | Outpatient (CLI) | payer MEDICARE, MEDICAID, SELFPAY ==
--- NOTE | ~2023-12-23 | PE_ITS ---
EXAMINATION: PET skull to mid thigh DATE: 12/23/2023 12:35 INDICATION: Malignant right breast cancer TECHNIQUE: Blood glucose level was 88 mg/dL. 10.01 mCi of 18-fluorodeoxyglucose (18-FDG) was administ ered i.v. Low dose computed tomography (CT) images were acquired from the base of the brain to the pr oximal thighs for attenuation correction and anatomic localization. Positron emission tomography (PET ) images were acquired in the same distribution beginning 55 minutes after injection. Images includin g fused PET/CT images were reconstructed in axial, coronal, and sagittal planes. Automated exposure c ontrol technique was employed. The dose-length product was 757.89mGy-cm. COMPARISON: CT abdomen and pelvis dated 04/18/[address] brain dated 10/29/2020 FINDINGS: Head/neck: Moderate-sized right frontoparietal region of encephalomalacia which could be related to prior infarc t, trauma or surgery with overlying craniectomy defect. There is ex vacuo dilation in the posterior r ight lateral ventricle. There is symmetric increased activity in the oral cavity, palatine tonsils, p arotid glands, submandibular glands, laryngeal muscles and ocular muscles without CT correlate, like ly physiologic. There is mild likely physiologic uptake along some of the cervical paraspinal muscula ture without correlate and more prominent uptake scattered mostly intramuscular fat in the bilateral supraclavicular regions which is typical for brown fat. No pathologically enlarged cervical lymphaden opathy or other suspicious foci of increased FDG uptake in the visualized head or neck. Chest: Slightly more caudal to the suspected brown fat uptake in the right supraclavicular region is a 14 x 7 mm FDG avid right subpectoral lymph node with maximal SUV of 5.3. Larger 3.7 x 2.2 cm right axillar y lymph node with maximal SUV of 7.7. There is a small more cephalad 7 x 4 mm FDG avid high right axi llary lymph node with maximal SUV of 3.4. There is a 7.7 x 5.4 cm mass with lobular margins at the la teral right breast with maximal SUV of 646 consistent with provided history of primary breast cancer. Calcified nodule at the left lung base along with calcite left hilar and mediastinal lymph nodes con sistent with old granulomatous disease. 3 mm likely intrafissural lymph node along the right major fi ssure without evident FDG activity. No other suspicious pulmonary nodules, pneumonia, pulmonary edema or pleural effusion. Heart size is normal. No pericardial effusion. Right subclavian central venous port catheter with distal tip at the superior cavoatrial junction. No pathologically enlarged or FDG avid hilar or mediastinal lymphadenopathy. There is mild likely physiologic uptake extending cranioca udally along the normal-appearing esophagus. Abdomen/pelvis/proximal thighs: Physiologic renal accumulation and excretion of FDG activity in the kidneys, bladder and along portio ns of ureters. Normal degree and heterogenous pattern of increased uptake throughout the liver withou t radiologic correlate or dominant FDG avid lesion. There are numerous scattered hepatic and splenic calcifications consistent with old granulomatous disease. The gallbladder, pancreas, spleen and bilat eral adrenal glands are normal. Colon is not visualized and has likely been surgically resected. Ther e is a midline likely chronically dehiscent surgical scar. Right abdominal ostomy with reduction of t he previously seen parastomal hernia. Mild uptake scattered throughout the bowels without radiologic correlate, also likely physiologic. Infrarenal IVC filter. Bilateral common iliac the external iliac vein stenting. The uterus is not identified and has likely been surgically resected. No free intraper itoneal gas or fluid. No significant interval change in size of a mildly FDG avid 1.9 x 1.6 m left in guinal lymph node with maximal SUV of 3.2. No other abnormal foci of increased FDG uptake or patholog icall
[2023-12-23 11:08] LABS: Glucose Point of Care 88 mg/dl (65-105)
== END 2023-12-23 10:43 | disposition home or self-care (01) ==
LOC: ANHIMG 10:42
PROVIDERS: Visit Provider Internal Medicine Hematology & Oncology
DX: C50.511 Malignant neoplasm of lower-outer quadrant of right female breast (principal); Z17.0 Estrogen receptor positive status [ER+]; R59.0 Localized enlarged lymph nodes
CPT/HCPCS: 78815; A9552

== ENCOUNTER 2024-01-05 00:10 | Day surgery (SDC) | payer MEDICARE, MEDICAID, SELFPAY ==
[2023-12-30 08:32] VITALS: BMI 22.1
--- NOTE | 2023-12-30 08:43 | PC.NURSE ---
Report to the Outpatient Waiting Room, entrance under the green pavilion located off [facility], at time _0830_ on date _01/05/24_. Planned Procedure Time: _1030_. Time changes happen often and if your time is changed the preop area will call you the afternoon before. - You and your visitor will be asked to self-screen and do not enter if you have any COVID symptoms. - A mask is optional within the hospital at this time. Patients may have clear liquids (water, carbonated beverages, clear teas, apple juice) until 3 hours prior to surgery with a maximum of 20 ounces. - No food from midnight until time of surgery - Infants may have breast milk until 4 hours before surgery, infant formula 6 hours prior to surgery. - Children will be allowed to drink immediately following surgery. If applicable, please bring a bottle or sippy cup to assist with drinking. Juice, water, soda, and popsicles are readily available. For infants on formula, please bring formula the day of surgery. Pacifiers are allowed. Take the following medications with a SIP of water the morning of surgery: ____NONE DO NOT STOP ANY OF YOUR OTHER PRESCRIPTION MEDICATIONS PRIOR TO SURGERY ?EXCEPT THE FOLLOWING Medications to discontinue per physician XARELTO Date to take last dose____3 DAYS PRIOR TO SURGERY Please no make-up, nail turkish, hairspray, perfume, deodorant, or body powder the day of surgery. No jewelry (including any body piercings) or valuables the day of surgery, leave them at home. Please take a shower or bath the night before, or the morning of, surgery with HIBICLENS antibacterial soap. Wear comfortable, loose fitting clothing. Children are encouraged to wear pajamas. - Jewelry must be removed prior to entering the operating room. Rings and piercings that are not removed may be cut off. - The hospital will not accept responsibility for valuables. - Please leave all valuables, including medications, at home the day of surgery. If you are going home after surgery, a licensed spike driver must drive you home. - NO public transportation without another adult if you receive anesthesia. - We recommend that an adult stay with you for 24 hours following discharge. - We also recommend that you do not drive, make important decision, drink alcoholic beverages, or take any drugs that were not prescribed by your health care provider for at least 24 hours after your discharge time. For Pediatric surgeries, we recommend two adults accompany the child home. Follow any additional instructions given to you from your surgeon. If you or anyone in your household have experienced Covid symptoms in the past week, please notify your surgeon or the nurse liaison at the phone number below for possible testing. Telephone instructions given to and asked if any additional questions and then verbalized understanding. Patient advised to call surgeon office or pre surgery nurse liaison [phone] if any additional questions.
--- NOTE | ~2024-01-05 | XR_ITS ---
EXAMINATION: XR fl guide central line place DATE: 01/05/2024 12:25 INDICATION: Port placement. TECHNIQUE: 3 intraoperative fluoroscopic views of the chest were obtained. I was not present. Fluoros copy exposure time was 13 seconds. COMPARISON: Chest view 01/05/2024 FINDINGS: There is a left subclavian port with tip in superior vena cava. IMPRESSION: 1. Port tip in superior vena cava. Reviewed, dictated and finalized at location E.
--- NOTE | ~2024-01-05 | XR_ITS ---
Portable chest x-ray Comparison: 03/13/2016 Clinical History: Mediport placement Findings: Left-sided Mediport in satisfactory position. Lungs are clear, without focal consolidation or pleural effusion. No pneumothorax. Possible COPD. Cardiomediastinal silhouette is stable. Bones and soft tissues are unremarkable. Impression: Left-sided Mediport in place. Clear lungs. Possible COPD. Reviewed, dictated and finalized at location . Impression: Left-sided Mediport in place. Clear lungs. Possible COPD.
[2024-01-05 10:46] VITALS: BP 111/42; PULSE 59; RESP 18; TEMP 36.6; O2SAT 100
--- NOTE | 2024-01-05 11:03 | WPDANESEPPF ---
Anes - Initial Pre Proc Eval Procedure: Operation Date: 01/05/24 12:30 Proposed Procedures p Removal Archie Cath, - Jody Nunez MD s Insertion Archie Cath - Jody Nunez MD Date/Time: 01/05/24 11:03 Surgeon: Jody Nunez MD Pre Op Diagnosis: malignant neoplasm lower outer quadrant rt breast Patient Data Age: 63 Gender: F Height: 1.8 m Weight: 68.3 kg Last Vital Signs Temp 36.6 C 01/05/24 10:46 Pulse 59 L 01/05/24 10:46 Resp 18 01/05/24 10:46 BP 111/42 L 01/05/24 10:46 Pulse Ox 100 01/05/24 10:46 O2 Del Method Room Air 01/05/24 10:46 Allergies Allergy/AdvReac Type Severity Reaction Status Date / Time No Known Allergies Allergy Verified 01/05/24 10:49 Home Medications Medication Instructions Recorded Confirmed Type furosemide 40 mg tablet 40 mg PO DAILY 10/29/20 01/05/24 History rivaroxaban 20 mg tablet (Xarelto) 20 mg PO HS 10/29/20 01/05/24 History aspirin 325 mg tablet 325 mg PO DAILY 12/30/23 01/05/24 History potassium chloride 20 mEq/15 mL 20 meq PO WEEKLY 12/30/23 01/05/24 History oral liquid Patient hx anesthesia problems: none Family hx anesthesia problems: none Results Review: All pre-operative results and documents have been reviewed as part of the pre-operative evaluation. [facility] Past Medical History Medical History Cerebral aneurysm Status post coiling. Chronic pain syndrome Chronic back pain and lower extremity pain due to venous stasis ulcers. On long-term opioids and medical marijuana. 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 Residual left-sided weakness. Venous stasis ulcer Surgical History Surgical History History of 2 sections History of colostomy History of craniotomy Related to cerebral aneurysm rupture and hemorrhagic stroke at the age of 20. History of hysterectomy Status post coil embolization of cerebral aneurysm Family History Family History Mother Diabetes mellitus Sibling Diabetes mellitus Sibling Leukemia Other Family history of arthritis Social History Social History Social History: Surrogate decision maker: Seymour Urias, . Code status: Full code. Smoking packs per day: 2 Smoking cigarettes per day: 40.0 Years smoked: 5 Smoking pack-years: 10.00 Smoking status: Former smoker Tobacco type: cigarettes Additional smoking assessment comments: STOPPED SMOKING Alcohol intake: former Substance use: former Substance use type: does not use and marijuana Other substance usage details: FORMER CBD GUMMIES Last use: 10/28/2020 Do You Feel Safe in your Home?: Yes Lack of Transportation: No Lack of Food: Never True Current Housing: I Have Housing Concerned About Future Housing: No Difficulty Paying Gas/Electric Bills: No Difficulty Paying for Meds: No Currently Unemployed: No Education: High School Diploma/GED Difficulty w/ Childcare or Family Care: No Living arrangements: with roommate(s) Additional living arrangements comments: Resides in [place] with her . Additional occupation/education comments: Disabled. Gender identity (if verbalized by the patient): Female Spiritual care concerns: No Anes - Eval Final PreProcedure Day of Procedure 01/05/24 11:03 Patient weight: normal Heart: regular rate and rhythm Lungs: clear to auscultation Airway: Mallampati scale Neurological: alert and oriented Last oral intake: >/= 8 hours ASA classification: III Emergent: no Anesthetic plan: proceed Anesthesia type and monitoring: general GIVS and standard monitoring Results Review: All pre-operative results and documents have been reviewed as
[2024-01-05] MEDS: LACTATED RINGERS 1,000 ML 30 ML IV CONT (11:10)
[2024-01-05] MEDS: KETOROLAC 15 MG/ML VIAL (*BKC) IV PUSH (11:13)
--- NOTE | 2024-01-05 11:15 | SUR.PREOP ---
PT PRESENTS WITH LEAKING OSTOMY BAG. HAS BROUGHT SUPPLIES. WISHES FOR HER S.O. TO CHANGE HER APPLIANCE.
--- NOTE | 2024-01-05 11:36 | PM.IMHP ---
H&P: HPI History of Present Illness Date/Time: 01/05/24 11:36 Chief Complaint: Right breast cancer Narrative: The patient is a 63 year old female presenting to the hospital for placement of venous access device. The patient was recently diagnosed with likely metastatic right breast cancer and will undergo chemotherapy. The patient actually has a right-sided venous access device placed many years ago that is nonfunctioning. The patient denies any other central venous catheterization. Review of Systems Review of Systems: All systems reviewed & are unremarkable except as noted in HPI and below PMFSH Past Medical History Medical History Cerebral aneurysm Status post coiling. Chronic pain syndrome Chronic back pain and lower extremity pain due to venous stasis ulcers. On long-term opioids and medical marijuana. 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 Residual left-sided weakness. Venous stasis ulcer Surgical History Surgical History History of 2 sections History of colostomy History of craniotomy Related to cerebral aneurysm rupture and hemorrhagic stroke at the age of 20. History of hysterectomy Status post coil embolization of cerebral aneurysm Family History Family History Mother Diabetes mellitus Sibling Diabetes mellitus Sibling Leukemia Other Family history of arthritis Social History Social History Social History: Surrogate decision maker: Seymour Urias, . Code status: Full code. Smoking packs per day: 2 Smoking cigarettes per day: 40.0 Years smoked: 5 Smoking pack-years: 10.00 Smoking status: Former smoker Tobacco type: cigarettes Additional smoking assessment comments: STOPPED SMOKING Alcohol intake: former Substance use: former Substance use type: does not use and marijuana Other substance usage details: FORMER CBD GUMMIES Last use: 10/28/2020 Do You Feel Safe in your Home?: Yes Lack of Transportation: No Lack of Food: Never True Current Housing: I Have Housing Concerned About Future Housing: No Difficulty Paying Gas/Electric Bills: No Difficulty Paying for Meds: No Currently Unemployed: No Education: High School Diploma/GED Difficulty w/ Childcare or Family Care: No Living arrangements: with roommate(s) Additional living arrangements comments: Resides in [place] with her . Additional occupation/education comments: Disabled. Gender identity (if verbalized by the patient): Female Spiritual care concerns: No Meds Home Medications and Allergies Home Medications Medication Instructions Recorded Confirmed Type furosemide 40 mg tablet 40 mg PO DAILY 10/29/20 01/05/24 History rivaroxaban 20 mg tablet (Xarelto) 20 mg PO HS 10/29/20 01/05/24 History aspirin 325 mg tablet 325 mg PO DAILY 12/30/23 01/05/24 History potassium chloride 20 mEq/15 mL 20 meq PO WEEKLY 12/30/23 01/05/24 History oral liquid Allergies Allergy/AdvReac Type Severity Reaction Status Date / Time No Known Allergies Allergy Verified 01/05/24 10:49 Vital Signs Vital Signs - 24 hr 01/05/24 10:46 Temperature 36.6 C Pulse Rate 59 L Respiratory Rate 18 Blood Pressure 111/42 L Pulse Oximetry 100 Oxygen Delivery Room Air Exam Const: General: cooperative, comfortable, no acute distress and ill appearing Chest: Chest palpation & inspection: normal inspection of the chest Resp: Auscultation: clear to auscultation bilaterally Cardio: Rate: regular rate Rhythm: regular rhythm GI: Inspection: normal to inspection Assessment and Plan Assessment and plan (1) Breast cancer: Code(s): C50.919 - Malignant neoplasm
--- NOTE | 2024-01-05 11:38 | WPDHPUPDATE1 ---
History and Physical Update Update Date/Time: 01/05/24 11:38 History and Physical has been reviewed, including an updated exam of the patient. There are NO changes in the patient's condition. Risks, benefits, and alternatives have been discussed and questions answered. Patient agrees to proceed with procedure.
[2024-01-05] MEDS: ceFAZolin 2 GM/D5W 50 ML 2 GM/50 ML BAG IVPB (11:46)
[2024-01-05] MEDS: BUPIVACAINE/EPINEPHRINE 0.5% 10 ML VIAL 30 ML INFILTRATE (11:58)
[2024-01-05] MEDS: HEPARIN SODIUM 5,000 UNITS/ML VIAL 5000 UNITS IRRIGATION (11:59)
[2024-01-05] MEDS: HEPARIN SODIUM, PORCINE 10,000 UNITS/10 ML VIAL 3000 UNITS IV PUSH (12:00)
--- NOTE | 2024-01-05 12:27 | W.PM.PROC2 ---
Procedure Note - Detailed Date of Procedure 01/05/24 Pre-op Diagnosis right breast cancer, nonfunctioning right sided venous access device Post-op Diagnosis Same Procedure Performed removal nonfunctioning right-sided venous access device, placement of left subclavian venous access device under fluoroscopic guidance Surgeon Jody Nunez MD Anesthesia MAC and Local Indications 63-year-old female with newly diagnosed right breast cancer. The patient is going to undergo chemotherapy. The patient right-sided venous access device placed 10+ years ago that is nonfunctioning. Findings First stick left subclavian vein access Description of Procedure The patient was taken to the operating room and placed in the supine position. The patient was then prepped and draped in the normal sterile fashion. A time-out was then done to verify the patient's identity, as well as the procedure being performed. I began by localizing the area of the previously placed port in the right chest. After the area was adequately anesthetized, I made an incision through the previous incision to gain access to the port in the subcutaneous tissue. I was then able to identify the port and using dissection with the Bovie cautery, I was able to free the reservoir from the subcutaneous pocket. The reservoir was being held in by 2 sutures and these were subsequently cut. I was then able to remove the reservoir from the pocket. I then removed the catheter from the right subclavian vein in full. I then held pressure at the level the right subclavian vein for approximately 5 minutes. Hemostasis was noted and I irrigated the pocket. I then closed the subcutaneous tissue with 3-0 Vicryl suture. The skin was closed with 4-0 Monocryl subcuticular suture. Dermabond was placed on the wound. A small incision was then made in the left chest. Using an 18 gauge needle I gained access into the left subclavian vein via the 1st stick. A guidewire was placed into the left subclavian vein and confirmed in good position via fluoroscopic guidance. I then removed the 18 gauge needle just leaving the guidewire in the vein. I then enlarged the incision around the guidewire including making a subcutaneous pocket inferiorly to allow placement of the port itself. I then placed the dilator and the sheath over the guidewire under sterile Seldinger technique into the left subclavian vein. Then removed the dilator and the guidewire just leaving the sheath in the vein. This was all done under fluoroscopy. I then fed the previously flushed catheter into the left subclavian vein. At approximately 17 cm, the tip of the catheter was noted to terminate near the atrial caval junction. Was able to easily drawn flush from the catheter. I then peeled away the sheath just leaving the catheter in the vein. The catheter was then cut to fit and the port was attached to the catheter. I was able to easily drawn flush from the port through a Tyler needle. The port reservoir was then placed in the subcutaneous pocket that was previously created and sutured in with 0 Ethibond suture. I then once again gained access to the port and flushed 4 cc a final heparin flush into the port. Final fluoroscopic view showed a nice smooth curvature of the port and catheter into the left subclavian vein terminating near the atrial caval junction. I then closed the subcutaneous tissue with 3-0 Vicryl suture. The skin was closed with 4-0 Monocryl subcuticular suture. Dermabond was then placed on the wound. The patient tolerated the procedure well and was alert and awake postoperatively. She will be transferred to the recovery room in stable condition. Estimated Blood Loss 5 Drains No Packing No Pathology None sent Complications No immediate complications Condition Stable Disposition PACU [facility] Billing Surgery - Charge Forward: Surgery Billing
[2024-01-05 12:35] VITALS: BP 109/55; PULSE 74; RESP 18; O2SAT 100
[2024-01-05 13:05] VITALS: BP 109/58; PULSE 65; RESP 18; O2SAT 99
[2024-01-05 13:30] VITALS: BP 111/55; PULSE 70; RESP 18
== END 2024-01-05 13:45 | disposition home or self-care (01) ==
PROVIDERS: Visit Provider Surgery
PROC: (CPT 36589; principal; 2024-01-05 12:30)
PROC: (CPT 36590; 2024-01-05 12:30)
DX: T82.594A Other mechanical complication of infusion catheter, initial encounter (principal); Y83.8 Other surgical procedures as the cause of abnormal reaction of the patient, or of later complication, without mention of misadventure at the time of the procedure; C50.911 Malignant neoplasm of unspecified site of right female breast; G40.909 Epilepsy, unspecified, not intractable, without status epilepticus; Z87.891 Personal history of nicotine dependence
CPT/HCPCS: 36590; 36561; 77001; C1788; J0690; J1644; J1885; J2704; J3010; J7030; J7120

== ENCOUNTER 2024-02-04 14:37 | Emergency (ER) | payer MEDICARE, MEDICAID, SELFPAY ==
[2024-02-04] VITALS (8 sets, daily range): BP systolic 103–114; BP diastolic 50–65; PULSE 72–77; RESP 8–15; TEMP 36.8; O2SAT 98–100
--- NOTE | ~2024-02-04 | CT_ITS ---
CT brain wo con Ordering provider: Joseph Bowers MD History: 63 years Female with . seizure . Comparison: None. Technique: CT of the head without contrast. Radiation reduction technique utilized. The dose-length product was 605.33 mGy-cm. FINDINGS: BRAIN PARENCHYMA AND CSF SPACES: Mild leukoaraiosis and diffuse cortical atrophy. Mild atheromatous d isease. Postoperative changes in the right frontal area with encephalomalacia. Old lacunar infarct in the right basal ganglia. No midline shift, mass effect or hemorrhage. The brain parenchyma and CSF spaces are otherwise normal. VISUALIZED PARANASAL SINUSES: Bilateral maxillary sinus disease. Thickening of the wall of the right maxillary sinus which may indicate chronic sinusitis. Right ethmoid, frontal and sphenoid sinus disea se. Possible postoperative changes in the medial wall of the right maxillary sinus. MASTOIDS: Well aerated. BONES: Right frontal craniotomy. Otherwise, The bones appear intact. SOFT TISSUES: Visualized nasopharynx is normal. Superficial soft tissues are normal. IMPRESSION: No acute intracranial findings. Postoperative changes in the right frontal lobe with encephalomalacia. Reviewed, dictated and finalized at location A.
--- NOTE | 2024-02-04 15:00 | ECG_ITS ---
Test Date: 2024-02-04 15:35:06 Measurements Intervals Castine Rate: 70 P: 80 IN: 173 QRS: 52 QRSD: 97 T: 69 QT: 402 QTc: 434 Interpretive Statements SINUS RHYTHM POSSIBLE RIGHT VENTRICULAR CONDUCTION DELAY [RSR (QR) IN V1/V2] No previous ECG available for comparison Electronically Signed On 02-04-2024 17:16:02 CDT by Jolene Irby M.D.
--- NOTE | 2024-02-04 16:00 | ED.GENADULT ---
HPI - General Adult General Chief complaint: Seizure Stated complaint: seizure Time Seen by Provider: 02/04/24 14:57 History of Present Illness HPI narrative: 63-year-old female presents emergency department from the oncology infusion center for suspected seizure. Patient was getting her chemo infusion when her boyfriend states that her eyes rolled back into her head for a few seconds. Patient states that she does have a history of having 1 grand mal seizure but does not have a current seizure disorder and does not take Tegretol any more. Patient states she recalls the episodes and had no confusion. Patient had no loss of bowel or bladder control. Patient denies any falls or injuries. Is declining additional labs at this time. Patient did have outpatient labs checked at the infusion center. Patient's outpatient labs show a hemoglobin of 8.5 which is similar to her baseline. No significant electrolyte abnormalities Related Data Home Medications Medication Instructions Recorded Confirmed furosemide 40 mg tablet 40 mg PO DAILY 10/29/20 02/04/24 rivaroxaban 20 mg tablet (Xarelto) 20 mg PO HS 10/29/20 02/04/24 aspirin 325 mg tablet 325 mg PO DAILY 12/30/23 02/04/24 potassium chloride 20 mEq/15 mL 20 meq PO WEEKLY 12/30/23 02/04/24 oral liquid Allergies Allergy/AdvReac Type Severity Reaction Status Date / Time No Known Allergies Allergy Verified 02/04/24 11:05 Review of Systems Review of Systems: All systems reviewed & are unremarkable except as noted in HPI and below PMFSH Past Medical History Medical History Cerebral aneurysm Status post coiling. Chronic pain syndrome Chronic back pain and lower extremity pain due to venous stasis ulcers. On long-term opioids and medical marijuana. 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 Residual left-sided weakness. Venous stasis ulcer Surgical History Surgical History History of 2 sections History of colostomy History of craniotomy Related to cerebral aneurysm rupture and hemorrhagic stroke at the age of 20. History of hysterectomy Status post coil embolization of cerebral aneurysm Family History Family History Mother Diabetes mellitus Sibling Diabetes mellitus Sibling Leukemia Other Family history of arthritis Social History Social History Social History: Surrogate decision maker: Seymour Urias, . Code status: Full code. Smoking packs per day: 2 Smoking cigarettes per day: 40.0 Years smoked: 5 Smoking pack-years: 10.00 Smoking status: Former smoker Tobacco type: cigarettes Additional smoking assessment comments: STOPPED SMOKING Alcohol intake: former Substance use: former Substance use type: does not use and marijuana Other substance usage details: FORMER CBD GUMMIES Last use: 10/28/2020 Do You Feel Safe in your Home?: Yes Lack of Transportation: No Lack of Food: Never True Current Housing: I Have Housing Concerned About Future Housing: No Difficulty Paying Gas/Electric Bills: No Difficulty Paying for Meds: No Currently Unemployed: No Education: High School Diploma/GED Difficulty w/ Childcare or Family Care: No Living arrangements: with roommate(s) Additional living arrangements comments: Resides in [place] with her . Additional occupation/education comments: Disabled. Gender identity (if verbalized by the patient): Female Spiritual care concerns: No Exam Narrative: APPEARANCE: Well appearing, no pain, no distress, well-nourished. HEAD: normocephalic, atraumatic. EYES: PERRLA/EOMI, conjunctivae clear. NOSE: Normal no drainage EARS:TMS clear with good light reflex.
== END 2024-02-04 16:17 | disposition home or self-care (01) ==
PROVIDERS: Emergency Provider Emergency Medicine
DX: R56.9 Unspecified convulsions (principal); C80.1 Malignant (primary) neoplasm, unspecified; I83.009 Varicose veins of unspecified lower extremity with ulcer of unspecified site; I69.954 Hemiplegia and hemiparesis following unspecified cerebrovascular disease affecting left non-dominant side; G89.4 Chronic pain syndrome; M54.9 Dorsalgia, unspecified; K58.9 Irritable bowel syndrome, unspecified; Z87.891 Personal history of nicotine dependence; Z90.710 Acquired absence of both cervix and uterus; Z79.82 Long term (current) use of aspirin; Z79.01 Long term (current) use of anticoagulants; Z79.60 Long term (current) use of unspecified immunomodulators and immunosuppressants; R94.31 Abnormal electrocardiogram [ECG] [EKG]
CPT/HCPCS: 36415; 70450; 80047; 80053; 85025; 93005; 96367; 96368; 96375; 96411; 96413; 99284; J1100; J1453; J2469; J7040; J7050; J9000; J9075

== ENCOUNTER 2024-02-27 08:18 | Inpatient (IN) | payer MEDICARE, MEDICAID, SELFPAY ==
[2024-02-27] VITALS (40 sets, daily range): BP systolic 86–126; BP diastolic 36–103; PULSE 80–99; RESP 15–21; TEMP 36.4–38.2; O2SAT 91–100; BMI 18.7
--- NOTE | ~2024-02-27 | XR_ITS ---
Portable chest x-ray Comparison: 03/01/2024 Clinical History: Pneumonia Findings: Left-sided Mediport is unchanged. Questionable minimal central haziness bilaterally. Card iomediastinal silhouette is stable. Bones and soft tissues are unremarkable. Impression: Questionable minimal central pulmonary edema. Left-sided Mediport. Reviewed, dictated and finalized at [facility]. Impression: Questionable minimal central pulmonary edema. Left-sided Mediport.
--- NOTE | ~2024-02-27 | XR_ITS ---
Portable chest x-ray Comparison: 02/29/2024 Clinical History: Pneumonia Findings: Left-sided Mediport is in place. There is retrocardiac/left basilar consolidation. Right l brianna remains clear. Cardiomediastinal silhouette is stable. Bones and soft tissues are unremarkable. Impression: Left lower lobe atelectasis versus pneumonia, similar to prior exam. Reviewed, dictated and finalized at location M. Impression: Left lower lobe atelectasis versus pneumonia, similar to prior exam.
--- NOTE | ~2024-02-27 | XR_ITS ---
Portable chest x-ray Comparison: 03/02/2024 Clinical History: Pneumonia Findings: Left-sided Mediport is unchanged. There is patchy left perihilar and left basilar airspace disease. Right lung clear. Cardiomediastinal silhouette is stable. Bones and soft tissues are unrem arkable. Impression: Patchy left perihilar and left basilar airspace disease, which is compatible with pneumonia. Left-sided Mediport. Reviewed, dictated and finalized at location M. Impression: Patchy left perihilar and left basilar airspace disease, which is compatible wi th pneumonia. Left-sided Mediport.
--- NOTE | ~2024-02-27 | XR_ITS ---
Portable chest x-ray Comparison: 01/05/2024 Clinical History: Fever Findings: Left-sided Mediport in satisfactory position. Possible focal retrocardiac consolidation. R ight lung clear. Cardiomediastinal silhouette is stable. Bones and soft tissues are unremarkable. Impression: Possible focal retrocardiac pneumonia at the left lower lobe. Left-sided Mediport. Reviewed, dictated and finalized at location . Impression: Possible focal retrocardiac pneumonia at the left lower lobe. Left-sided Mediport.
--- NOTE | ~2024-02-27 | XR_ITS ---
Portable chest x-ray Comparison: 02/27/2024 Clinical History: Pneumonia Findings: Left-sided Mediport unchanged. There is probable retrocardiac airspace disease. Cardiomed iastinal silhouette is stable correlate with calcified mediastinal lymph nodes. Bones and soft tissue s are unremarkable. Impression: Probable retrocardiac airspace disease. Correlate for left lower lobe pneumonia. Stable left-sided Mediport. Reviewed, dictated and finalized at location . Impression: Probable retrocardiac airspace disease. Correlate for left lower lobe pneumonia . Stable left-sided Mediport.
--- NOTE | ~2024-02-27 | CT_ITS ---
EXAMINATION: CT chest abdomen pelvis w con DATE: 02/27/2024 16:43 INDICATION: Sepsis. Breast cancer. TECHNIQUE: Computed tomography (CT) of the chest, abdomen, and pelvis was performed with 100 mL Omnip aque-350 intravenous contrast. Automated exposure control and iterative reconstruction technique were employed. The dose-length product was 430.33 mGy-cm. COMPARISON: PET/CT dated 12/23/2023 FINDINGS: CHEST CT: Left subclavian central venous port catheter with distal tip at the superior cavoatrial junction. Con solidation in the left lower lobe with some associated volume loss and multiple mucous impacted bronc hi consistent with likely combination of atelectasis and pneumonia. 2.5 x 1.3 cm cavitary mass at the posterior aspect of the superior segment of the lingula which is new since relatively recent PET/CT suggesting an infectious/inflammatory etiology. Right lung remains clear. No pleural effusion. Heart size is normal. No pericardial effusion. Thoracic aorta is normal in caliber with no dissection. Calc ified left hilar and mediastinal lymph nodes consistent with old granulomatous disease. 3.2 x 3.0 cm mixed solid and cystic mass at the lateral right breast which is decreased in size from 7.8 x 4.3 cm the time of prior PET/CT consistent with response to treatment of reported breast cancer. A prior 3.6 x 1.8 cm FDG avid likely metastatic right axillary lymph node has decreased to 2.4 x 1.3 cm also con sistent with response to treatment. Small sliding-type hiatal hernia. Mild thoracic spondylosis. ABDOMEN/PELVIS CT: Numerous scattered hepatic and splenic calcifications consistent with old granulomatous disease. Deco mpressed gallbladder and bilateral adrenal glands are normal. There are few small bilateral low-atten uation renal cysts the largest on the right measuring up to 1 cm. Atrophic pancreas with a few scatte red dystrophic calcifications suggesting sequela of chronic pancreatitis. Status post colectomy with right lower quadrant and ileostomy. No bowel obstruction. Bladder is normal. The uterus is not identi fied and has likely been surgically resected. Infrarenal IVC filter. There are stents in the bilat eral common and external iliac veins. No free intraperitoneal gas or fluid. No pathologically enlarge d abdominal or pelvic lymphadenopathy. Lumbar levoscoliosis with moderate spondylosis. IMPRESSION: 1. Consolidation the left lower lobe and cavitary mass in the lingula, both new since study from 2 mo nths prior consistent with pneumonia. 2. Interval decrease in size of a right breast mass and enlarged previously FDG avid right axillary l ymph node consistent with response to treatment of primary and metastatic right breast cancer. Reviewed, dictated and finalized at location A. IMPRESSION: 1. Consolidation the left lower lobe and cavitary mass in the lingula, both new since study from 2 months prior consistent with pneumonia. 2. Interval decrease in size of a right breast mass and enlarged previously FDG avid right axillary lymph node consistent with response to treatment of primar y and metastatic right breast cancer.
--- NOTE | 2024-02-27 08:30 | ECG_ITS ---
Test Date: 2024-02-27 08:30:06 Measurements Intervals [place] Rate: 95 P: 81 WA: 157 QRS: 59 QRSD: 102 T: 69 QT: 356 QTc: 448 Interpretive Statements SINUS RHYTHM INCOMPLETE RIGHT BUNDLE BRANCH BLOCK [90+ ms QRS DURATION, TERMINAL R IN V1/V2, 40+ ms S IN I/aVL/V4/V5/V6] NONSPECIFIC ST & T-WAVE ABNORMALITY Compared to ECG 02/04/2024 15:35:06 no change Electronically Signed On 02-28-2024 14:18:42 CDT by Calvin Friedman M.D.
--- NOTE | 2024-02-27 08:41 | ED.GENADULT ---
HPI - General Adult General Chief complaint: Weakness Stated complaint: weakness History of Present Illness HPI narrative: 63-year-old female presented to the emergency department for evaluation for increased generalized weakness and an issue with her ostomy. Patient is currently being treated with chemotherapy for breast cancer by Dr Donohue. Patient states she has had worsening generalized weakness over the last few days. Related Data Home Medications Medication Instructions Recorded Confirmed aspirin 325 mg tablet 325 mg PO DAILY 12/30/23 02/27/24 ferrous sulfate 324 mg (65 mg 324 mg PO DAILY 02/13/24 02/27/24 iron) tablet,delayed release oxycodone 30 mg tablet 30 mg PO DAILY PRN Pain (Scale 02/13/24 02/27/24 Score 7-10) mecobalamin (vitamin B12) 5,000 5,000 mcg PO DAILY 02/27/24 02/27/24 mcg chewable tablet Allergies Allergy/AdvReac Type Severity Reaction Status Date / Time No Known Allergies Allergy Verified 02/20/24 10:11 Review of Systems Review of Systems: All systems reviewed & are unremarkable except as noted in HPI and below PMFSH Past Medical History Medical History (Updated 02/27/24 @ 17:57 by Joseph Bowers MD) Cancer of right breast Cerebral aneurysm Status post coiling. Chronic pain syndrome Chronic back pain and lower extremity pain due to venous stasis ulcers. On long-term opioids and medical marijuana. 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 Residual left-sided weakness. Venous stasis ulcer Surgical History Surgical History History of 2 sections History of colostomy History of craniotomy Related to cerebral aneurysm rupture and hemorrhagic stroke at the age of 20. History of hysterectomy Status post coil embolization of cerebral aneurysm Family History Family History (Updated 02/27/24 @ 15:33 by Lina Weiss RN) Mother Diabetes mellitus Sibling Diabetes mellitus Cervical cancer Sibling Leukemia Sibling Lung cancer Sibling Liver cancer Sibling Lung cancer Other Family history of arthritis Family history of cancer Social History Social History Social History: Surrogate decision maker: Seymour Urias, . Code status: Full code. Smoking packs per day: 2 Smoking cigarettes per day: 40.0 Years smoked: 5 Smoking pack-years: 10.00 Smoking status: Former smoker Tobacco type: cigarettes Additional smoking assessment comments: STOPPED SMOKING Alcohol intake: never Substance use: never Substance use type: does not use and marijuana Other substance usage details: FORMER CBD GUMMIES Last use: 10/28/2020 Do You Feel Safe in your Home?: Yes Lack of Transportation: No Lack of Food: Never True Current Housing: I Have Housing Concerned About Future Housing: No Difficulty Paying Gas/Electric Bills: No Difficulty Paying for Meds: No Currently Unemployed: No Education: High School Diploma/GED Difficulty w/ Childcare or Family Care: No Living arrangements: with roommate(s) Additional living arrangements comments: Resides in [place] with her . Additional occupation/education comments: Disabled. Gender identity (if verbalized by the patient): Female Spiritual care concerns: Yes Exam Narrative: APPEARANCE: Cachectic and ill-appearing HEAD: normocephalic, atraumatic. EYES: PERRLA/EOMI, conjunctivae clear. NOSE: Normal no drainage EARS:TMS clear with good light reflex. THROAT: Pharynx clear, no exudate. NECK: Supple. No adenopathy, no masses. RESPIRATORY: Airway patent, respirations nonlabored. Clear to auscultation bilaterally, no rales, rhonchi, wheezing. CARDIOVASCULAR: Regular rate and rhythm without murmurs rubs or gallops. ABDOMINAL: Soft nontender skin is excoriated and i
[2024-02-27 09:58] LABS: Immature Granulocyte Absolute 0.01 K/mm3 (0.00-0.031); Immature Platelet Fraction Pct 5.3 % (0.9-11.2); Lymphocytes Absolute Auto 0.02 K/mm3 (0.9-3.2); Mean Corpuscular HGB Conc 33.7 g/dl (32-36); Mean Corpuscular Hemoglobin 34.4 pg (26-34); Mean Corpuscular Volume 101.9 fl (80-100); Mean Platelet Volume 10.9 fl (7.4-10.4); Platelet Count Result 43 k/mm3 (150-375); Red Cell Distribution Width 14.9 % (11.5-14.5)
[2024-02-27 10:04] LABS: INR 2.2; Prothrombin Time 25.2 Seconds (11.1-14.7)
[2024-02-27 10:05] LABS: Partial Thromboplastin Time 63.4 Seconds (22.3-36.8)
[2024-02-27 10:08] LABS: Alanine Aminotransferase 16 U/L (6-35); Albumin Level 3.4 g/dL (3.5-5.1); Alkaline Phosphatase 92 U/L (38-126); Anion Gap 12 mmol/L (4-12); Aspartate Amino Transferase 25 U/L (14-36); Bilirubin,Total 1.5 mg/dL (0.2-1.3); Blood Urea Nitrogen 49 mg/dL (7-17); Calcium 9.8 mg/dL (8.4-10.2); Carbon Dioxide 23 mmol/L (22-30); Chloride 94 mmol/L (98-107); Estimated CRCL calculation 64 ml/min; Estimated Glomerular Filt Rate > 60; Glucose 148 mg/dL (65-110); Potassium 4.1 mmol/L (3.4-5.0); Sodium 129 mmol/L (137-145)
[2024-02-27] MEDS: SODIUM CHLORIDE 0.9% IV 1,000 ML 999 ML IV CONT ×2 (10:17→12:01)
[2024-02-27 10:37] LABS: Hemoglobin 5.5 g/dL (12.0-15.0); White Blood Count 0.1 K/mm3 (4.5-10.0)
[2024-02-27 10:38] LABS: Hematocrit 16.3 % (37.0-47.0)
[2024-02-27 11:16] LABS: Bacteria Urine None Seen /hpf; Need Manual Microscopic Reviewed; Non Pathogenic Casts >20; Squamous Epithelial Cell Urine Occasional /hpf (Few); WBC Urine 0-5 /hpf (0-3)
[2024-02-27 11:19] LABS: Add Urine Microscopic? YES; Appearance Urine Clear (Clear); Bilirubin Urine 1+ (Negative); Blood Urine Trace (Negative); Color Urine Orange (Yellow); Glucose Urine UA Negative (Negative); Ketones Urine Negative (Negative); Leukocyte Esterase Ur Trace LEU/UL (Negative); Nitrate Urine Negative (Negative); Protein Urine Trace mg/dL (Negative); Urobilinogen Urine 0.2 mg/dL (<2.0)
[2024-02-27] MEDS: SODIUM CHLORIDE 0.9% IV 250 ML 30 ML IV CONT (12:34)
[2024-02-27 12:50] LABS: Reflex Lactic Acid Yes or No Add Lactic
[2024-02-27 13:04] LABS: Influenza A QL RT-PCR Negative (Negative); Influenza B QL RT-PCR Negative (Negative); RSV RNA, RT-PCR Negative (Negative); SARS-CoV-2 RNA PCR Negative (Negative)
--- NOTE | 2024-02-27 13:43 | PCCCNOTE ---
1115: CC was called to the ED to speak with pt about hospice care. Pt is currently getting treatments with Dr. Donohue. Pt's significant other came in and talked to her about giving it time before she goes on hospice. He feels like this is just her not feeling good at this time. After he left, I spoke with her again, explaining that this is her decision. She decided to get her blood transfusion and IV fluids and to hold off at this time on starting hospice. I explained to her that we can come back anytime to get her on it if she chooses to. She will be admitted to the floor at this time.
[2024-02-27 13:45] LABS: Procalcitonin 12.9 ng/mL
--- NOTE | 2024-02-27 13:52 | PC.NURSE ---
EDP is aware of the pt elevated temp. pt is showing no signs of SOB or any distress. EDP advise to keep blood transfusing going due to no signs of distress. Tylenol given
[2024-02-27 13:58] LABS: Erythrocyte Sedimentation Rate > 140 mm/hr (0-20)
[2024-02-27] MEDS: TUBING, BLOOD PLUM PUMP TUBING 1 EACH XX ×2 (14:00→15:14)
[2024-02-27] MEDS: ACETAMINOPHEN 500 MG TABLET 1000 MG PO (14:02)
[2024-02-27 14:30] LABS: CRP 36.4 mg/dL (<1.0)
--- NOTE | 2024-02-27 14:45 | ADMGEN ---
This patient, Racquel Thomas, was admitted to IMU Room 200-01. Patient/family oriented to hospital policies and general routines including ID bracelet, bed and alarms, visiting hours, pain management, procedures, bathroom and other care routines, personal items, smoking policy, room service/diet, and visiting hours. Information on how to activate the Rapid Response Team has been discussed. Patient/Family are encouraged to report perceived risks to care and to ask questions if they do not understand what they are told or what they should do.
[2024-02-27] MEDS: CEFEPIME 1 GM/NS 50 ML 1 GM/50 ML BAG IVPB ×2 (15:13→17:46)
[2024-02-27] MEDS: CENTRAL LINE FLUSH 10 ML IV PUSH ×2 (15:14→20:37)
[2024-02-27 15:27] LABS: Lactic Acid 2.6 mmol/L (0.7-2.0)
--- NOTE | 2024-02-27 15:55 | PM.IMHP ---
H&P: HPI History of Present Illness Date/Time: 02/27/24 14:30 Chief Complaint: Weakness. Narrative: This is a 63-year-old female with history of seizures, hemorrhagic stroke secondary to brain aneurysm at the age of 20 with residual left-sided weakness, inflammatory bowel disease, deep venous thrombosis, and metastatic breast cancer for which she is currently undergoing treatment who presented to the emergency department for evaluation of weakness. The patient provides the following history however she is only a fair historian. She recently had chemotherapy (cannot tell me the date however) and she has been feeling increasingly weak since that time. Her appetite has been poor with minimal oral intake however she is trying to drink protein shakes several times a day. Her throat has been sore and it has been difficult for her to get those down however. She also reports ongoing issues with her ileostomy site with reports of having difficulties findings appropriate sized bags. Her stools are always loose and that is unchanged. She denies fever, headache, neck ache, sinus congestion, cough, chest pain, pleuritic pain, abdominal pain, vomiting, and dysuria. In the ED: She was afebrile on arrival but her temperature has been as high as 100.7? F. Blood pressure on arrival was 93/47 and did initially improve with IV fluids and blood products. Labs were significant for a WBC count of 0.1, RBC 1.60, hemoglobin 5.5, hematocrit 16.3, platelet 43, PT 25.2, INR 2.2, PTT 63.4, sodium 129, chloride 94, BUN 49, creatinine 0.80, lactic acid 3.0, CRP 36.4, procalcitonin 12.9. She tested negative for influenza, RSV, COVID, and strep. CT of the chest, abdomen, and pelvis showed consolidation left lower lobe in cavitary mass in the lingula consistent with pneumonia an interval decrease in size of a right breast mass. She received a dose of cefepime and vancomycin in the ED as well as 2 L normal saline. She was admitted to the IMU in this setting. Unfortunately her blood pressures started to drop and she was transferred to ICU and has been started on norepinephrine. Review of Systems Review of Systems: 12 systems were reviewed and are negative except for as per HPI. [facility] Past Medical History Medical History Cancer of right breast Cerebral aneurysm Status post coiling. Chronic pain syndrome Chronic back pain and lower extremity pain due to venous stasis ulcers. On long-term opioids and medical marijuana. 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 Residual left-sided weakness. Venous stasis ulcer Surgical History Surgical History History of 2 sections History of colostomy History of craniotomy Related to cerebral aneurysm rupture and hemorrhagic stroke at the age of 20. History of hysterectomy Status post coil embolization of cerebral aneurysm Family History Family History Mother Diabetes mellitus Sibling Diabetes mellitus Cervical cancer Sibling Leukemia Sibling Lung cancer Sibling Liver cancer Sibling Lung cancer Other Family history of arthritis Family history of cancer Social History Social History (Updated 02/27/24 @ 19:25 by Salima Pratt PA-C) Social History: Surrogate decision maker: Seymour Urias, . Code status: Full code. Smoking packs per day: 2 Smoking cigarettes per day: 40.0 Years smoked: 5 Smoking pack-years: 10.00 Smoking status: Former smoker Tobacco type: cigarettes Alcohol intake: never Substance use: former Substance use type: does not use and marijuana Do You Feel Safe in your Home?: Yes Lack of Transportation: No Lack of Food: Never True Current Housing: I Have Housing Concerned About Future Housing:
[2024-02-27 16:37] LABS: Strep Group A RT-PCR NOT DETECTED (Negative)
[2024-02-27] MEDS: VANCOMYCIN 1,500 MG/NS 500 ML 1,500 MG/500 ML BAG 250 MG IVPB (17:00)
--- NOTE | 2024-02-27 17:05 | PC.NURSE ---
Pt transferred to ICU-3 after chest/abd/pelvis CT. Report given to extension supervisor. Family at bedside and notified of transfer
--- NOTE | 2024-02-27 17:12 | PC.NURSE ---
Levophed infusion not started since pt.'s MAP being greater than 65 at this time.
[2024-02-27] MEDS: NOREPINEPHRINE 8 MG/D5W 250 ML 8 MG/250 ML BAG 9.38 MG IV CONT (17:46)
[2024-02-27] MEDS: NYSTATIN 100,000 UNITS/ML SUSP 5 ML ORAL.SUSP PO ×2 (17:46→20:36)
[2024-02-27 18:10] LABS: Immature Platelet Fraction Pct 4.8 % (0.9-11.2); Lymphocytes Absolute Auto 0.03 K/mm3 (0.9-3.2); Lymphocytes Percent Auto 21.4 % (18.3-44.2); Mean Corpuscular HGB Conc 33.7 g/dl (32-36); Mean Corpuscular Hemoglobin 32.6 pg (26-34); Mean Corpuscular Volume 96.7 fl (80-100); Mean Platelet Volume 11.9 fl (7.4-10.4); Monocytes Percent Auto 28.6 % (2.6-8.5); Neutrophils Absolute Auto 0.1 K/mm3 (1.3-6.7); Platelet Count Result 34 k/mm3 (150-375); Red Blood Count 2.15 M/mm3 (4.2-5.4); Red Cell Distribution Width 16.2 % (11.5-14.5)
[2024-02-27 18:21] LABS: INR 1.9; Prothrombin Time 22.5 Seconds (11.1-14.7)
[2024-02-27 18:22] LABS: Fibrinogen 670 mg/dl (215-510); Partial Thromboplastin Time 59.9 Seconds (22.3-36.8)
[2024-02-27 18:23] LABS: Magnesium 1.9 mg/dL (1.6-2.3)
[2024-02-27 18:33] LABS: White Blood Count 0.1 K/mm3 (4.5-10.0)
[2024-02-27 18:34] LABS: Hematocrit 20.8 % (37.0-47.0)
[2024-02-27 18:35] LABS: Immunochemical Fecal Occult Bl Negative (N)
[2024-02-27 18:35] LABS: D Dimer 3.86 ug/mL (<0.48)
[2024-02-27 18:36] LABS: IFOB Positive Control Positive
[2024-02-27 20:02] LABS: Alanine Aminotransferase 14 U/L (6-35); Albumin Level 2.8 g/dL (3.5-5.1); Alkaline Phosphatase 81 U/L (38-126); Anion Gap 10 mmol/L (4-12); Aspartate Amino Transferase 21 U/L (14-36); Blood Urea Nitrogen 37 mg/dL (7-17); Calcium 9.7 mg/dL (8.4-10.2); Carbon Dioxide 21 mmol/L (22-30); Chloride 101 mmol/L (98-107); Estimated CRCL calculation 95 ml/min; Estimated Glomerular Filt Rate > 60; Glucose 113 mg/dL (65-110); Potassium 3.3 mmol/L (3.4-5.0); Sodium 132 mmol/L (137-145)
[2024-02-27] MEDS: DOXYCYCLINE HYCLATE 100 MG TABLET PO (20:36)
[2024-02-27 20:53] LABS: MRSA (PCR) DETECTED (NOT DETECTE)
[2024-02-27] MEDS: MUPIROCIN 2% OINT 22 GM TUBE 1 APPLIC EACH NARE (21:56)
[2024-02-27] MEDS: BENZOCAINE/MENTHOL (*BKC) 18 EA LOZENGE 1 LOZENGE PO (21:56)
[2024-02-27] MEDS: CEFEPIME 2 GM/NS 50 ML 2 GM/50 ML BAG IVPB (22:04)
[2024-02-27] MEDS: SODIUM CHLORIDE 0.9% IV 1,000 ML 75 ML IV CONT (22:46)
[2024-02-27] MEDS: KCL 20 MEQ/SW 100 ML 100 ML 50 MEQ IVPB (22:46)
[2024-02-27] MEDS: diphenhydrAMINE HCl CAP 25 MG CAPSULE PO (22:49)
[2024-02-28] VITALS (40 sets, daily range): BP systolic 73–132; BP diastolic 39–95; PULSE 68–90; RESP 17–26; TEMP 36.6–37.8; O2SAT 94–100; BMI 18.5
[2024-02-28] MEDS: CEFEPIME 2 GM/NS 50 ML 2 GM/50 ML BAG IVPB ×3 (05:02→23:20)
[2024-02-28] MEDS: CENTRAL LINE FLUSH 10 ML IV PUSH ×3 (05:03→23:20)
[2024-02-28 06:03] LABS: Hemoglobin 7.1 g/dL (12.0-15.0); Immature Granulocyte Absolute 0.01 K/mm3 (0.00-0.031); Immature Granulocyte Percent A 5.6 % (0-0.5); Immature Platelet Fraction Pct 5.2 % (0.9-11.2); Lymphocytes Absolute Auto 0.02 K/mm3 (0.9-3.2); Lymphocytes Percent Auto 11.1 % (18.3-44.2); Mean Corpuscular HGB Conc 34.3 g/dl (32-36); Mean Corpuscular Volume 96.3 fl (80-100); Mean Platelet Volume 11.2 fl (7.4-10.4); Monocytes Absolute Auto 0.1 K/mm3 (0.1-0.6); Monocytes Percent Auto 33.3 % (2.6-8.5); Neutrophils Absolute Auto 0.1 K/mm3 (1.3-6.7); Platelet Count Result 30 k/mm3 (150-375); Red Blood Count 2.15 M/mm3 (4.2-5.4); Red Cell Distribution Width 17.3 % (11.5-14.5)
[2024-02-28 06:20] LABS: Lactic Acid Reflex 1.3 mmol/L (0.7-2.0)
[2024-02-28 06:27] LABS: Alanine Aminotransferase 13 U/L (6-35); Albumin Level 2.8 g/dL (3.5-5.1); Alkaline Phosphatase 77 U/L (38-126); Anion Gap 9 mmol/L (4-12); Aspartate Amino Transferase 20 U/L (14-36); Bilirubin,Total 1.9 mg/dL (0.2-1.3); Blood Urea Nitrogen 26 mg/dL (7-17); Calcium 9.7 mg/dL (8.4-10.2); Carbon Dioxide 22 mmol/L (22-30); Chloride 105 mmol/L (98-107); Estimated CRCL calculation 114 ml/min; Estimated Glomerular Filt Rate > 60; Glucose 122 mg/dL (65-110); Potassium 3.5 mmol/L (3.4-5.0); Sodium 136 mmol/L (137-145)
[2024-02-28 06:54] LABS: Hematocrit 20.7 % (37.0-47.0); White Blood Count 0.2 K/mm3 (4.5-10.0)
[2024-02-28 06:55] LABS: Platelet Estimate Decreased (Adequate)
[2024-02-28 06:56] LABS: Anisocytosis 1+; Hypochromasia 1+; Schistocytes None Seen
[2024-02-28] MEDS: NYSTATIN 100,000 UNITS/ML SUSP 5 ML ORAL.SUSP PO ×4 (08:30→20:14)
[2024-02-28] MEDS: POTASSIUM CHLORIDE 20 MEQ PACKET (FOR LIQUID) 40 MEQ PO (08:30)
[2024-02-28] MEDS: DOXYCYCLINE HYCLATE 100 MG TABLET PO ×2 (08:30→20:13)
[2024-02-28] MEDS: VANCOMYCIN 1,000 MG/NS 250 ML 1,000 MG/250 ML BAG 250 MG IVPB (08:31)
[2024-02-28] MEDS: oxyCODONE HCL (*CRX) 5 MG TAB IR 15 MG PO (08:31)
[2024-02-28] MEDS: MUPIROCIN 2% OINT 22 GM TUBE 1 APPLIC EACH NARE ×2 (08:31→20:16)
--- NOTE | 2024-02-28 08:52 | WPDCNINT ---
Assessment and Plan Assessment and plan (1) Shock: Code(s): R57.9 - Shock, unspecified Status: Acute Assessment and Plan: Shock likely related to septic shock secondary to left lower lobe pneumonia. Patient presented on 02/27/2024 with generalized weakness, decreased p.o. intake status post chemotherapy on 02/04/2024. -patient received 30 mL/kg IV fluids in the ER, started on cefepime, doxycycline and vancomycin (02/26) -despite the IV fluids blood pressures remain low and patient was started on Levophed through her port -Levophed has been turned of since 5:00 a.m. on 02/28/2024. -02/26: Blood cultures have been obtained and pending -02/27: Will order urine cultures 02/27/2024: CT chest/abdomen/pelvis 1. Consolidation the left lower lobe and cavitary mass in the lingula, both new since study from 2 months prior consistent with pneumonia. 2. Interval decrease in size of a right breast mass and enlarged previously FDG avid right axillary lymph node consistent with response to treatment of primary and metastatic right breast cancer. (2) Pneumonia involving left lung: Code(s): J18.9 - Pneumonia, unspecified organism Status: Acute Assessment and Plan: Pneumonia seen on chest CT as above -continue antibiotics (3) Pancytopenia: Code(s): D61.818 - Other pancytopenia Status: Acute Assessment and Plan: Patient with pancytopenia likely related to recent chemotherapy -will order filgrastim -continue neutropenic precautions -continue antibiotics as above -hematology/oncology has been consulted -patient had anemia (likely related to recent chemotherapy) with initial hemoglobin of 5.5 on admission status post 2 unit of packed RBCs on 02/28/2024 -hemoglobin this morning is 7.1 -continue to monitor hemoglobin -no active bleeding noted Thrombocytopenia likely related to recent chemotherapy -no active bleeding noted, will continue to monitor (4) Cancer of right breast: Qualifiers: Breast location: unspecified site of breast Estrogen receptor status: unspecified Patient sex: female Qualified Code(s): C50.911 - Malignant neoplasm of unspecified site of right female breast Code(s): C50.911 - Malignant neoplasm of unspecified site of right female breast Status: Acute Assessment and Plan: Metastatic right breast cancer status post recent chemotherapy on 02/04/2024 -follows with Dr. Donohue (5) Protein calorie malnutrition: Qualifiers: Protein-calorie malnutrition severity: unspecified severity Qualified Code(s): E46 - Unspecified protein-calorie malnutrition Code(s): E46 - Unspecified protein-calorie malnutrition Status: Acute Assessment and Plan: Protein calorie malnutrition, BMI of 18.5, albumin of 2.8 -encourage oral intake along with supplements Plan DVT prophylaxis: SCDs, no chemoprophylaxis due to anemia Stress ulcer prophylaxis: Will add Protonix Nutrition: Heart healthy diet Code Status: Full code Critical Care Time Spent: 49 minutes Due to a high probability of clinically significant, life threatening deterioration, the patient required my highest level of preparedness to intervene emergently and I personally spent this critical care time directly and personally managing the patient. This critical care time included obtaining a history; examining the patient; pulse oximetry; ordering and review of studies; arranging urgent treatment with development of a management plan; evaluation of patient's response to treatment; frequent reassessment; and discussions with other providers. It was exclusive of separately billable procedures and treating other patients and teaching time. Please see Assessment and Plan section and the rest of the note for further information on patient assessment and treatment This dictation may have been done utilizing a voice recognition system. Attempts have been made to correct errors. However
[2024-02-28] MEDS: FILGRASTIM-SNDZ 300 MCG/0.5 ML SYRINGE SUB-Q (10:35)
[2024-02-28] MEDS: PANTOPRAZOLE SODIUM IV 40 MG VIAL IV PUSH ×2 (10:35→20:15)
[2024-02-28] MEDS: MAGNES & ALUM HYD/SIMETH/DIPHENHYD/LIDOCAINE 119 ML MOUTHWASH BY MOUTH ×3 (12:06→20:15)
[2024-02-28] MEDS: SODIUM CHLORIDE 0.9% IV 1,000 ML 75 ML IV CONT (12:06)
--- NOTE | 2024-02-28 17:03 | PM.IMPN ---
Progress Note: A&P Assessment and Plan (1) Shock: Code(s): R57.9 - Shock, unspecified Status: Acute Assessment and Plan: Patient presents with weakness and found to have HoTN. Currently receiving chemo treatment for metastatic breast cancer. CT Ch/A/P showing consolidation the LLL and cavitary mass in the lingula, both new since study from 2 months prior consistent with pneumonia. Also with interval decrease in size of a right breast mass and enlarged previously FDG avid right axillary lymph node consistent with response to treatment of primary and metastatic right breast cancer. Shock likely related to septic shock secondary to LLL pneumonia. Consider alos dehydration since not eating much due to odynophagia. She has neutropenic fever with ANC 50. Patient received 30 mL/kg IV fluids in the ER and started on cefepime, doxycycline and vancomycin (02/26) afer appropriate cultures obtained. -despite the IV fluids blood pressures remain low and patient was started on Levophed through her port -Levophed has been turned of since 5:00 a.m. on 02/28/2024. -02/26: Blood cultures NGTD -02/27: urine culture pending Continue IV abx. (2) Pneumonia involving left lung: Code(s): J18.9 - Pneumonia, unspecified organism Status: Acute Assessment and Plan: LLL with lingula cavitary PNA. As above. (3) Pancytopenia: Code(s): D61.818 - Other pancytopenia Status: Acute Assessment and Plan: Patient with pancytopenia likely related to recent chemotherapy WBC 100 with ANC 50. Hgb 5.5 and Plt 43K. She received 2U PRBCs and Hgb better in the 7 range. Filgrastim given as well. Continue neutropenic precautions Continue antibiotics as above Hematology/oncology has been consulted Monitor counts (4) Cancer of right breast: Qualifiers: Breast location: unspecified site of breast Estrogen receptor status: unspecified Patient sex: female Qualified Code(s): C50.911 - Malignant neoplasm of unspecified site of right female breast Code(s): C50.911 - Malignant neoplasm of unspecified site of right female breast Status: Acute Assessment and Plan: Metastatic right breast cancer status post recent chemotherapy on 02/04/2024 -follows with Dr. Donohue (5) Protein calorie malnutrition: Qualifiers: Protein-calorie malnutrition severity: unspecified severity Qualified Code(s): E46 - Unspecified protein-calorie malnutrition Code(s): E46 - Unspecified protein-calorie malnutrition Status: Acute Assessment and Plan: Protein calorie malnutrition, BMI of 18.5, albumin of 2.8 -encourage oral intake along with supplements Plan DVT prophylaxis: SCDs, no chemoprophylaxis due to anemia Stress ulcer prophylaxis: Protonix Nutrition: Regular diet Code Status: Full code Subjective Date/time seen: 02/28/24 17:03 Interval history: 63yo female with seizures, 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 She came off levophed this morning. She slept poorly. She denies CP or SOB. Has a cough productive of clear sputum. RN has had to change her ostomy appliance to a large appliance since this is leaking. Exam Narrative: Tm 100.1 99.5 95/57 86 21 98% Gen - very thin female in NARD. HEENT - thick yellow-white phlegm oral cavity Chest - lungs clear anteriorly and in the flanks. Port accessed in left upper chest CV - RRR S1/S2. Tele showing no significant dysrhythmias Abd - soft, +BS. Large applaince attached with yellow-brown stool in bag Ext - No pedal edema Neuro - Alert and appropriate. left hemiplegia Psych - Nml mood and affect Skin - Warm and dry Chronic stasis ulcer on the left lower extremity above the medial malle
[2024-02-28] MEDS: NOREPINEPHRINE 8 MG/D5W 250 ML 8 MG/250 ML BAG 3.75 MG IV CONT (23:20)
[2024-02-29] VITALS (34 sets, daily range): BP systolic 69–110; BP diastolic 45–65; PULSE 61–83; RESP 13–27; TEMP 36.6–37.3; O2SAT 28–100
[2024-02-29] MEDS: SODIUM CHLORIDE 0.9% IV 1,000 ML 75 ML IV CONT ×2 (01:29→14:32)
[2024-02-29] MEDS: MAGNES & ALUM HYD/SIMETH/DIPHENHYD/LIDOCAINE 119 ML MOUTHWASH BY MOUTH ×6 (02:19→21:00)
[2024-02-29 03:21] LABS: Vancomycin Trough 5.5 ug/mL (10.0-20.0)
[2024-02-29] MEDS: VANCOMYCIN 1,250 MG/NS 250 ML 1,250 MG/250 ML BAG 166.67 MG IVPB (04:33)
[2024-02-29 06:16] LABS: Basophils Percent Auto 2.3 % (0.2-1.2); Immature Granulocyte Absolute 0.03 K/mm3 (0.00-0.031); Immature Granulocyte Percent A 3.4 % (0-0.5); Immature Platelet Fraction Pct 6.7 % (0.9-11.2); Lymphocytes Absolute Auto 0.09 K/mm3 (0.9-3.2); Lymphocytes Percent Auto 10.3 % (18.3-44.2); Mean Corpuscular HGB Conc 32.3 g/dl (32-36); Mean Corpuscular Hemoglobin 32.7 pg (26-34); Mean Platelet Volume 12.9 fl (7.4-10.4); Monocytes Absolute Auto 0.2 K/mm3 (0.1-0.6); Monocytes Percent Auto 26.4 % (2.6-8.5); Neutrophils Absolute Auto 0.5 K/mm3 (1.3-6.7); Neutrophils Percent Auto 57.6 % (45.5-73.1); Red Blood Count 1.99 M/mm3 (4.2-5.4); Red Cell Distribution Width 17.9 % (11.5-14.5)
[2024-02-29 06:26] LABS: Lactic Acid Reflex 1.3 mmol/L (0.7-2.0)
[2024-02-29 06:34] LABS: Potassium 3.2 mmol/L (3.4-5.0); Sodium 137 mmol/L (137-145)
[2024-02-29 06:35] LABS: Alanine Aminotransferase 13 U/L (6-35); Albumin Level 2.5 g/dL (3.5-5.1); Alkaline Phosphatase 74 U/L (38-126); Anion Gap 7 mmol/L (4-12); Aspartate Amino Transferase 17 U/L (14-36); Bilirubin,Total 1.2 mg/dL (0.2-1.3); Blood Urea Nitrogen 17 mg/dL (7-17); Calcium 9.4 mg/dL (8.4-10.2); Carbon Dioxide 20 mmol/L (22-30); Chloride 110 mmol/L (98-107); Estimated CRCL calculation 114 ml/min; Estimated Glomerular Filt Rate > 60; Glucose 98 mg/dL (65-110); Magnesium 1.8 mg/dL (1.6-2.3); Phosphorus 1.8 mg/dL (2.5-4.5)
[2024-02-29] MEDS: CEFEPIME 2 GM/NS 50 ML 2 GM/50 ML BAG IVPB ×3 (06:38→21:08)
[2024-02-29] MEDS: CENTRAL LINE FLUSH 10 ML IV PUSH ×3 (06:41→21:00)
[2024-02-29 06:42] LABS: CRP 24.2 mg/dL (<1.0)
[2024-02-29 07:00] LABS: White Blood Count 0.9 K/mm3 (4.5-10.0)
[2024-02-29 07:01] LABS: Hematocrit 20.1 % (37.0-47.0); Hemoglobin 6.5 g/dL (12.0-15.0); Platelet Count Result 25 k/mm3 (150-375)
[2024-02-29 07:01] LABS: INR 1.7
[2024-02-29 07:02] LABS: Platelet Estimate Decreased (Adequate)
[2024-02-29 07:03] LABS: Anisocytosis 1+; Burr Cells 1+; Schistocytes None Seen
[2024-02-29] MEDS: ALBUMIN HUMAN 25% 25 GM/100 ML 100 ML IVPB ×3 (07:35→18:18)
[2024-02-29] MEDS: NYSTATIN 100,000 UNITS/ML SUSP 5 ML ORAL.SUSP PO ×4 (09:27→20:59)
[2024-02-29] MEDS: DOXYCYCLINE HYCLATE 100 MG TABLET PO (09:28)
[2024-02-29] MEDS: PANTOPRAZOLE SODIUM IV 40 MG VIAL IV PUSH ×2 (09:28→20:58)
[2024-02-29] MEDS: MUPIROCIN 2% OINT 22 GM TUBE 1 APPLIC EACH NARE ×2 (09:28→20:59)
[2024-02-29] MEDS: POTASSIUM PHOS,M-BASIC-D-BASIC 20 MMOL in SODIUM CHLORIDE 0.9% IV 250 ML 64.17 MMOL IVPB (09:29)
[2024-02-29] MEDS: SODIUM CHLORIDE 0.9% IV 250 ML 30 ML IV CONT ×2 (09:56→21:23)
--- NOTE | 2024-02-29 10:19 | PM.IMPN ---
Progress Note: A&P Assessment and Plan (1) Shock: Code(s): R57.9 - Shock, unspecified Status: Acute Assessment and Plan: Patient presents with weakness and found to have HoTN. Currently receiving chemo treatment for metastatic breast cancer. CT Ch/A/P showing consolidation the LLL and cavitary mass in the lingula, both new since study from 2 months prior. Also with interval decrease in size of a right breast mass and enlarged previously FDG avid right axillary lymph node consistent with response to treatment of right breast cancer. Shock likely related to septic shock secondary to LLL pneumonia. Consider also dehydration since not eating much due to odynophagia. She had neutropenic fever with ANC 50. Patient received 30 mL/kg IV fluids in the ER and started on cefepime, doxycycline and vancomycin (02/26) after appropriate cultures obtained. -despite the IV fluids blood pressures remain low and patient was started on Levophed through her port -Levophed was stopped yesterday and resumed last night. BCx 02/26: NGTD UCx 02/27: pending Sputum Cx: pending WBC better at 900. Fevers resolved. Continue IV abx. (2) Pneumonia involving left lung: Code(s): J18.9 - Pneumonia, unspecified organism Status: Acute Assessment and Plan: LLL airspace disease with lingula cavitary PNA. As above. (3) Pancytopenia: Code(s): D61.818 - Other pancytopenia Status: Acute Assessment and Plan: Patient with pancytopenia likely related to recent chemotherapy with counts showing WBC 100 (ANC 50), Hgb 5.5 and Plt 43K. She received 2U PRBCs and Hgb improved to 7 range. Filgrastim given as well. Hgb 6.5 and 2u PRBCs ordered. WBC 900 (ANC 520), Plt 25K. No evidence of bleeding. Continue neutropenic precautions. Continue antibiotics as above Hematology/oncology has been consulted Monitor counts (4) Cancer of right breast: Qualifiers: Breast location: unspecified site of breast Estrogen receptor status: unspecified Patient sex: female Qualified Code(s): C50.911 - Malignant neoplasm of unspecified site of right female breast Code(s): C50.911 - Malignant neoplasm of unspecified site of right female breast Status: Acute Assessment and Plan: Metastatic right breast cancer status post recent chemotherapy on 02/04/24 -follows with Dr. Donohue (5) Protein calorie malnutrition: Qualifiers: Protein-calorie malnutrition severity: unspecified severity Qualified Code(s): E46 - Unspecified protein-calorie malnutrition Code(s): E46 - Unspecified protein-calorie malnutrition Status: Acute Assessment and Plan: Protein calorie malnutrition, BMI of 18.5, albumin of 2.8 -encourage oral intake along with supplements Plan DVT prophylaxis: SCDs, no chemoprophylaxis due to anemia Stress ulcer prophylaxis: Protonix Nutrition: Regular diet Code Status: Full code Subjective Date/time seen: 02/29/24 10:19 Interval history: 63yo female with seizures, 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 She came off levophed yesterday but resumed last night due to recurrent HoTN. She slept poorly. No CP, SOB or cough. No n/v. Not eating much but tolerating supplements. Exam Narrative: AF 98.7 97/65 71 18 95% Gen - very thin female in NARD. Chest - lungs clear anteriorly and in the flanks. Port accessed in left upper chest CV - RRR S1/S2. Tele showing no significant dysrhythmias Abd - soft, +BS. Large appliance attached with yellow-brown stool in bag Ext - No pedal edema Neuro - Alert and appropriate. left hemiplegia Psych - Nml mood and affect Skin - Warm and dry Chronic stasis ulcer on the left lower extremity above the
[2024-02-29] MEDS: FILGRASTIM-SNDZ 300 MCG/0.5 ML SYRINGE SUB-Q (10:23)
--- NOTE | 2024-02-29 11:59 | WPDINTPN ---
Progress Note: A&P Assessment and Plan (1) Shock: Code(s): R57.9 - Shock, unspecified Status: Acute Assessment and Plan: Shock likely related to septic shock secondary to left lower lobe pneumonia. Patient presented on 02/27/2024 with generalized weakness, decreased p.o. intake status post chemotherapy on 02/04/2024. -patient received 30 mL/kg IV fluids in the ER, started on cefepime, doxycycline and vancomycin (02/26) -despite the IV fluids blood pressures remain low and patient was started on Levophed through her port -Levophed has been turned of since 5:00 a.m. on 02/28/2024. -02/26: Blood cultures have been obtained and pending -02/27: Will order urine cultures -urine Legionella antigen, mycoplasma pneumonia IgM and urine pneumococcal antigen are pending -influenza, COVID, RSV PCR were negative 02/27/2024: CT chest/abdomen/pelvis 1. Consolidation the left lower lobe and cavitary mass in the lingula, both new since study from 2 months prior consistent with pneumonia. 2. Interval decrease in size of a right breast mass and enlarged previously FDG avid right axillary lymph node consistent with response to treatment of primary and metastatic right breast cancer. (2) Pneumonia involving left lung: Code(s): J18.9 - Pneumonia, unspecified organism Status: Acute Assessment and Plan: Pneumonia seen on chest CT as above -continue antibiotics (3) Pancytopenia: Code(s): D61.818 - Other pancytopenia Status: Acute Assessment and Plan: Patient with pancytopenia likely related to recent chemotherapy on 02/18/2024 -filgrastim x2 doses which ended on 02/29/2024 -continue neutropenic precautions -continue antibiotics as above -hematology/oncology has been consulted -patient had anemia (likely related to recent chemotherapy) with initial hemoglobin of 5.5 on admission status post 2 unit of packed RBCs on 02/28/2024 -02/27: hemoglobin this morning is 7.1 02/28: Hemoglobin dropped to 6.5 will transfuse 1 unit of packed RBCs -continue to monitor CC -no active bleeding noted Thrombocytopenia likely related to recent chemotherapy -no active bleeding noted, will continue to monitor -02/28: Platelets dropped to 25, will transfuse 1 unit of packed platelets (4) Cancer of right breast: Qualifiers: Breast location: unspecified site of breast Estrogen receptor status: unspecified Patient sex: female Qualified Code(s): C50.911 - Malignant neoplasm of unspecified site of right female breast Code(s): C50.911 - Malignant neoplasm of unspecified site of right female breast Status: Acute Assessment and Plan: Metastatic right breast cancer status post recent chemotherapy on 02/04/2024 -follows with Dr. Donohue (5) Protein calorie malnutrition: Qualifiers: Protein-calorie malnutrition severity: unspecified severity Qualified Code(s): E46 - Unspecified protein-calorie malnutrition Code(s): E46 - Unspecified protein-calorie malnutrition Status: Acute Assessment and Plan: Protein calorie malnutrition, BMI of 18.5, albumin of 2.8 -encourage oral intake -supplements have been ordered Patient has odynophagia likely secondary to chemotherapy, patient on nystatin swish and swallow along with Magic mouthwash Plan DVT prophylaxis: SCDs, no chemoprophylaxis due to anemia Stress ulcer prophylaxis: Continue Protonix Nutrition: Heart healthy diet Code Status: Full code Critical Care Time Spent: 33 minutes Updated patient with her condition and plan of care Due to a high probability of clinically significant, life threatening deterioration, the patient required my highest level of preparedness to intervene emergently and I personally spent this critical care time directly and personally managing the patient. This critical care time included obtaining a history; examining the patient; pulse oximetry; ordering and review of studies; arranging urge
[2024-02-29] MEDS: VANCOMYCIN 1,000 MG/NS 250 ML 1,000 MG/250 ML BAG 250 MG IVPB ×2 (12:01→19:03)
[2024-02-29 16:41] LABS: Basophils Percent Auto 1.2 % (0.2-1.2); Immature Granulocyte Absolute 0.15 K/mm3 (0.00-0.031); Immature Granulocyte Percent A 18.1 % (0-0.5); Immature Platelet Fraction Pct 6.1 % (0.9-11.2); Lymphocytes Absolute Auto 0.12 K/mm3 (0.9-3.2); Lymphocytes Percent Auto 14.5 % (18.3-44.2); Mean Corpuscular HGB Conc 33.2 g/dl (32-36); Mean Corpuscular Hemoglobin 31.1 pg (26-34); Mean Corpuscular Volume 93.7 fl (80-100); Monocytes Absolute Auto 0.2 K/mm3 (0.1-0.6); Monocytes Percent Auto 22.9 % (2.6-8.5); Neutrophils Absolute Auto 0.4 K/mm3 (1.3-6.7); Neutrophils Percent Auto 43.3 % (45.5-73.1); Red Blood Count 2.06 M/mm3 (4.2-5.4); Red Cell Distribution Width 20.6 % (11.5-14.5)
[2024-02-29 17:11] LABS: White Blood Count 0.8 K/mm3 (4.5-10.0)
[2024-02-29 17:12] LABS: Hematocrit 19.3 % (37.0-47.0); Hemoglobin 6.4 g/dL (12.0-15.0); Platelet Count Result 25 k/mm3 (150-375)
[2024-02-29 17:17] LABS: Anion Gap 10 mmol/L (4-12); Blood Urea Nitrogen 14 mg/dL (7-17); Calcium 9.3 mg/dL (8.4-10.2); Carbon Dioxide 19 mmol/L (22-30); Chloride 109 mmol/L (98-107); Estimated CRCL calculation 114 ml/min; Estimated Glomerular Filt Rate > 60; Glucose 102 mg/dL (65-110); Magnesium 1.6 mg/dL (1.6-2.3); Phosphorus 2.6 mg/dL (2.5-4.5); Potassium 3.1 mmol/L (3.4-5.0); Sodium 138 mmol/L (137-145)
[2024-02-29 17:19] LABS: Anisocytosis 1+; Platelet Estimate Decreased (Adequate); Schistocytes None Seen
[2024-02-29] MEDS: LACTATED RINGERS 1,000 ML 75 ML IV CONT (18:16)
[2024-02-29] MEDS: MAGNESIUM SULF 2 GM/WATER 50ML 2 GM/50 ML BAG IVPB (18:16)
[2024-02-29] MEDS: KCL 40 MEQ/WATER 100 ML 100 ML 25 ML IVPB (18:21)
[2024-02-29] MEDS: POTASSIUM CHLORIDE 20 MEQ PACKET (FOR LIQUID) 40 MEQ PO (18:45)
[2024-02-29] MEDS: DOXYCYCLINE 100 MG/NS 100 ML 100 MG/100 ML BAG IVPB (21:37)
[2024-03-01] VITALS (19 sets, daily range): BP systolic 90–107; BP diastolic 45–56; PULSE 66–75; RESP 19–26; TEMP 36.6–37.4; O2SAT 90–100
[2024-03-01] MEDS: MAGNES & ALUM HYD/SIMETH/DIPHENHYD/LIDOCAINE 119 ML MOUTHWASH BY MOUTH ×7 (01:00→23:58)
[2024-03-01 01:15] LABS: Hematocrit 21.8 % (37.0-47.0); Hemoglobin 7.1 g/dL (12.0-15.0); Immature Platelet Fraction Pct 10.6 % (0.9-11.2); Mean Corpuscular HGB Conc 32.6 g/dl (32-36); Mean Corpuscular Hemoglobin 30.7 pg (26-34); Mean Corpuscular Volume 94.4 fl (80-100); Red Blood Count 2.31 M/mm3 (4.2-5.4)
[2024-03-01 01:21] LABS: White Blood Count 1.4 K/mm3 (4.5-10.0)
[2024-03-01 01:22] LABS: Platelet Count Result 18 k/mm3 (150-375)
[2024-03-01] MEDS: SODIUM CHLORIDE 0.9% IV 250 ML 30 ML IV CONT (02:49)
[2024-03-01] MEDS: BENZOCAINE/MENTHOL (*BKC) 18 EA LOZENGE 1 LOZENGE PO (03:21)
[2024-03-01 03:22] LABS: Vancomycin Trough 14.3 ug/mL (10.0-20.0)
[2024-03-01] MEDS: CEFEPIME 2 GM/NS 50 ML 2 GM/50 ML BAG IVPB ×3 (05:13→20:37)
[2024-03-01] MEDS: VANCOMYCIN 1,000 MG/NS 250 ML 1,000 MG/250 ML BAG 250 MG IVPB ×3 (05:13→20:39)
[2024-03-01] MEDS: CENTRAL LINE FLUSH 10 ML IV PUSH ×3 (05:15→20:39)
[2024-03-01 06:01] LABS: Basophils Percent Auto 0.8 % (0.2-1.2); Hematocrit 21.6 % (37.0-47.0); Hemoglobin 7.2 g/dL (12.0-15.0); Immature Granulocyte Absolute 0.09 K/mm3 (0.00-0.031); Immature Granulocyte Percent A 6.8 % (0-0.5); Immature Platelet Fraction Pct 6.2 % (0.9-11.2); Lymphocytes Absolute Auto 0.19 K/mm3 (0.9-3.2); Lymphocytes Percent Auto 14.3 % (18.3-44.2); Mean Corpuscular HGB Conc 33.3 g/dl (32-36); Mean Corpuscular Hemoglobin 31.3 pg (26-34); Mean Corpuscular Volume 93.9 fl (80-100); Mean Platelet Volume 9.9 fl (7.4-10.4); Monocytes Absolute Auto 0.3 K/mm3 (0.1-0.6); Monocytes Percent Auto 24.1 % (2.6-8.5); Neutrophils Absolute Auto 0.7 K/mm3 (1.3-6.7); Platelet Count Result 41 k/mm3 (150-375); Red Cell Distribution Width 20.1 % (11.5-14.5)
[2024-03-01 06:13] LABS: Lactic Acid Reflex 1.6 mmol/L (0.7-2.0)
[2024-03-01 06:28] LABS: Alanine Aminotransferase 14 U/L (6-35); Albumin Level 2.9 g/dL (3.5-5.1); Alkaline Phosphatase 79 U/L (38-126); Anion Gap 8 mmol/L (4-12); Aspartate Amino Transferase 19 U/L (14-36); Bilirubin,Total 1.7 mg/dL (0.2-1.3); Blood Urea Nitrogen 10 mg/dL (7-17); CRP 12.7 mg/dL (<1.0); Calcium 9.7 mg/dL (8.4-10.2); Carbon Dioxide 20 mmol/L (22-30); Chloride 107 mmol/L (98-107); Estimated CRCL calculation 134 ml/min; Estimated Glomerular Filt Rate > 60; Glucose 76 mg/dL (65-110); Phosphorus 1.7 mg/dL (2.5-4.5); Potassium 3.3 mmol/L (3.4-5.0); Sodium 135 mmol/L (137-145)
[2024-03-01 07:48] LABS: White Blood Count 1.3 K/mm3 (4.5-10.0)
[2024-03-01 07:49] LABS: Anisocytosis 1+; Crenated RBC 1+; Hypochromasia 1+; Platelet Estimate Decreased (Adequate); Schistocytes None Seen
[2024-03-01] MEDS: POTASSIUM CHLORIDE 20 MEQ PACKET (FOR LIQUID) 40 MEQ PO (08:10)
[2024-03-01] MEDS: KCL 40 MEQ/WATER 100 ML 100 ML 25 ML IVPB (08:11)
[2024-03-01] MEDS: DOXYCYCLINE 100 MG/NS 100 ML 100 MG/100 ML BAG IVPB ×2 (08:11→20:39)
[2024-03-01] MEDS: ALBUMIN HUMAN 25% 25 GM/100 ML 100 ML IVPB ×2 (08:11)
[2024-03-01] MEDS: PANTOPRAZOLE SODIUM IV 40 MG VIAL IV PUSH ×2 (08:12→20:38)
[2024-03-01] MEDS: NYSTATIN 100,000 UNITS/ML SUSP 5 ML ORAL.SUSP PO ×4 (08:12→20:38)
[2024-03-01] MEDS: MUPIROCIN 2% OINT 22 GM TUBE 1 APPLIC EACH NARE ×2 (08:12→20:40)
--- NOTE | 2024-03-01 08:27 | WPDINTPN ---
Progress Note: A&P Assessment and Plan (1) Shock: Code(s): R57.9 - Shock, unspecified Status: Acute Assessment and Plan: Shock likely related to septic shock secondary to left lower lobe pneumonia. Patient presented on 02/27/2024 with generalized weakness, decreased p.o. intake status post chemotherapy on 02/04/2024. -patient received 30 mL/kg IV fluids in the ER, started on cefepime, doxycycline and vancomycin (02/26) -patient was started on Levophed on admission via her port -Levophed has been turned OFF since 1600 on 02/28 -02/26: Preliminary blood cultures are negative -02/27: Urine culture in progress 02/27: Sputum cultures showing growth of normal oropharyngeal delmar -urine Legionella antigen, mycoplasma pneumonia IgM and urine pneumococcal antigen are pending -influenza, COVID, RSV PCR were negative 02/27/2024: CT chest/abdomen/pelvis 1. Consolidation the left lower lobe and cavitary mass in the lingula, both new since study from 2 months prior consistent with pneumonia. 2. Interval decrease in size of a right breast mass and enlarged previously FDG avid right axillary lymph node consistent with response to treatment of primary and metastatic right breast cancer. (2) Pneumonia involving left lung: Code(s): J18.9 - Pneumonia, unspecified organism Status: Acute Assessment and Plan: Pneumonia seen on chest CT as above -continue antibiotics (3) Pancytopenia: Code(s): D61.818 - Other pancytopenia Status: Acute Assessment and Plan: Patient with pancytopenia likely related to recent chemotherapy on 02/18/2024 -filgrastim x3 doses which ended on 03/01/2024 -continue neutropenic precautions -continue antibiotics as above -hematology/oncology has been consulted -patient had anemia (likely related to recent chemotherapy) with initial hemoglobin of 5.5 on admission status post 2 unit of packed RBCs on 02/28/2024 -02/27: hemoglobin this morning is 7.1 -02/28: Hemoglobin dropped to 6.5 will transfuse 2 unit of packed RBCs -03/01: Hemoglobin stable -no active bleeding noted Thrombocytopenia likely related to recent chemotherapy -no active bleeding noted, will continue to monitor -02/28: Platelets dropped to 25, will transfuse 1 unit of packed platelets (4) Cancer of right breast: Qualifiers: Breast location: unspecified site of breast Estrogen receptor status: unspecified Patient sex: female Qualified Code(s): C50.911 - Malignant neoplasm of unspecified site of right female breast Code(s): C50.911 - Malignant neoplasm of unspecified site of right female breast Status: Acute Assessment and Plan: Metastatic right breast cancer status post recent chemotherapy on 02/18/2024 -follows with Dr. Donohue (5) Protein calorie malnutrition: Qualifiers: Protein-calorie malnutrition severity: unspecified severity Qualified Code(s): E46 - Unspecified protein-calorie malnutrition Code(s): E46 - Unspecified protein-calorie malnutrition Status: Acute Assessment and Plan: Protein calorie malnutrition, BMI of 18.5, albumin of 2.8 -encourage oral intake -supplements have been ordered Patient has odynophagia likely secondary to chemotherapy, patient on nystatin swish and swallow along with Magic mouthwash Plan DVT prophylaxis: SCDs, no chemoprophylaxis due to anemia Stress ulcer prophylaxis: Continue Protonix Nutrition: Heart healthy diet Code Status: Full code Critical Care Time Spent: 32 minutes Updated patient with her condition and plan of care Due to a high probability of clinically significant, life threatening deterioration, the patient required my highest level of preparedness to intervene emergently and I personally spent this critical care time directly and personally managing the patient. This critical care time included obtaining a history; examining the patient; pulse oximetry; ordering and review of studies
[2024-03-01] MEDS: FILGRASTIM-SNDZ 300 MCG/0.5 ML SYRINGE SUB-Q (09:54)
--- NOTE | 2024-03-01 13:19 | PM.IMPN ---
Progress Note: A&P Assessment and Plan (1) Shock: Code(s): R57.9 - Shock, unspecified Status: Acute Assessment and Plan: Patient presents with weakness and found to have HoTN. Currently receiving chemo treatment for metastatic breast cancer. CT Ch/A/P showing consolidation the LLL and cavitary mass in the lingula, both new since study from 2 months prior. Also with interval decrease in size of a right breast mass and enlarged previously FDG avid right axillary lymph node consistent with response to treatment of right breast cancer. Shock likely related to septic shock secondary to LLL pneumonia. Consider also dehydration since not eating much due to odynophagia. She had neutropenic fever with ANC 50. Patient received 30 mL/kg IV fluids in the ER and started on cefepime, doxycycline and vancomycin (02/26) after appropriate cultures obtained. -despite the IV fluids blood pressures remain low and patient was started on Levophed through her port -Levophed was stopped 02/27 but she is requiring this off/on. She was weaned off 02/28 at 1600. BCx 02/26: NGTD UCx 02/27: pending Sputum Cx: pending WBC better at 1300 with ANC 700. Fevers resolved. Continue IV abx. Follow up on cultures. Albumin x1. (2) Pneumonia involving left lung: Code(s): J18.9 - Pneumonia, unspecified organism Status: Acute Assessment and Plan: LLL airspace disease with lingula cavitary PNA. As above. (3) Pancytopenia: Code(s): D61.818 - Other pancytopenia Status: Acute Assessment and Plan: Patient with pancytopenia likely related to recent chemotherapy with counts showing WBC 100 (ANC 50), Hgb 5.5 and Plt 43K. She received 2U PRBCs and Hgb improved to 7 range. Filgrastim given as well. Hgb 6.5 and 2u PRBCs ordered. WBC 1300 (ANC 700), Plt 18K. No evidence of bleeding. Continue neutropenic precautions. Continue antibiotics as above Hematology/oncology has been consulted. Neupogen repeated. Monitor counts (4) Cancer of right breast: Qualifiers: Breast location: unspecified site of breast Estrogen receptor status: unspecified Patient sex: female Qualified Code(s): C50.911 - Malignant neoplasm of unspecified site of right female breast Code(s): C50.911 - Malignant neoplasm of unspecified site of right female breast Status: Acute Assessment and Plan: Metastatic right breast cancer status post recent chemotherapy on 02/04/24 -follows with Dr. Donohue (5) Protein calorie malnutrition: Qualifiers: Protein-calorie malnutrition severity: unspecified severity Qualified Code(s): E46 - Unspecified protein-calorie malnutrition Code(s): E46 - Unspecified protein-calorie malnutrition Status: Acute Assessment and Plan: Protein calorie malnutrition, BMI of 18.5, albumin of 2.9 Albumin ordere Encourage oral intake along with supplements Plan DVT prophylaxis: SCDs, no chemoprophylaxis due to anemia Stress ulcer prophylaxis: Protonix Nutrition: Regular diet Code Status: Full code Subjective Date/time seen: 03/01/24 13:19 Interval history: 63yo female with seizures, 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 No issues overnight. No problems. Mouth feels better and she is able to wear her dentures. Eating better. Cough productive of clear sputum. No CP or SOB. Exam Narrative: AF 98.5 93/51 75 20 99% Gen - very thin female in NARD. HEENT - persistent thrush noted left buccal mucosa, mmm Chest - lungs clear anteriorly and in the flanks. Port accessed in left upper chest CV - RRR S1/S2. Tele showing possible 5sec pause (but 2nd lead had small qrs complexes during this time) Abd - soft, +BS. Large appliance attach
[2024-03-01] MEDS: ACETAMINOPHEN 500 MG TABLET 1000 MG PO (20:36)
[2024-03-02] VITALS (13 sets, daily range): BP systolic 90–109; BP diastolic 44–63; PULSE 63–81; RESP 19–25; TEMP 36.4–37.2; O2SAT 94–100
[2024-03-02 03:14] LABS: Vancomycin Trough 19.3 ug/mL (10.0-20.0)
[2024-03-02 04:42] LABS: Basophils Percent Auto 0.9 % (0.2-1.2); Hematocrit 24.2 % (37.0-47.0); Hemoglobin 7.9 g/dL (12.0-15.0); Immature Granulocyte Percent A 9.3 % (0-0.5); Immature Platelet Fraction Pct 8.7 % (0.9-11.2); Lymphocytes Percent Auto 6.9 % (18.3-44.2); Mean Corpuscular HGB Conc 32.6 g/dl (32-36); Mean Corpuscular Hemoglobin 30.7 pg (26-34); Mean Corpuscular Volume 94.2 fl (80-100); Mean Platelet Volume 11.3 fl (7.4-10.4); Monocytes Absolute Auto 0.7 K/mm3 (0.1-0.6); Monocytes Percent Auto 17.1 % (2.6-8.5); Neutrophils Absolute Auto 2.8 K/mm3 (1.3-6.7); Neutrophils Percent Auto 65.8 % (45.5-73.1); Nucleated Red Blood Cells Perc 0.9 % (0.0-0.2); Red Blood Count 2.57 M/mm3 (4.2-5.4); White Blood Count 4.3 K/mm3 (4.5-10.0)
[2024-03-02 04:58] LABS: Alanine Aminotransferase 18 U/L (6-35); Albumin Level 2.9 g/dL (3.5-5.1); Alkaline Phosphatase 100 U/L (38-126); Anion Gap 6 mmol/L (4-12); Aspartate Amino Transferase 25 U/L (14-36); Bilirubin,Total 1.2 mg/dL (0.2-1.3); Blood Urea Nitrogen 8 mg/dL (7-17); Calcium 9.9 mg/dL (8.4-10.2); Carbon Dioxide 21 mmol/L (22-30); Chloride 110 mmol/L (98-107); Estimated CRCL calculation 134 ml/min; Estimated Glomerular Filt Rate > 60; Glucose 80 mg/dL (65-110); Magnesium 1.8 mg/dL (1.6-2.3); Phosphorus 1.5 mg/dL (2.5-4.5); Potassium 3.8 mmol/L (3.4-5.0); Sodium 137 mmol/L (137-145)
[2024-03-02] MEDS: CEFEPIME 2 GM/NS 50 ML 2 GM/50 ML BAG IVPB ×3 (04:58→21:13)
[2024-03-02] MEDS: CENTRAL LINE FLUSH 10 ML IV PUSH ×3 (04:59→21:13)
[2024-03-02] MEDS: VANCOMYCIN 1,250 MG/NS 250 ML 1,250 MG/250 ML BAG 166.67 MG IVPB ×2 (04:59→17:25)
[2024-03-02 05:07] LABS: Platelet Count Result 49 k/mm3 (150-375)
[2024-03-02 05:08] LABS: Platelet Estimate Decreased (Adequate)
[2024-03-02 05:09] LABS: Hypochromasia 1+
[2024-03-02 05:10] LABS: Anisocytosis 1+; Burr Cells 1+; Ovalocytes 1+; Schistocytes None Seen
--- NOTE | 2024-03-02 08:10 | P.CDI_ITS ---
CDI Query Clarification Request BMI: 21.9 Nutritional Diagnostic Statement: Please refer to the comprehensive nutrition assessment for further information. If you agree with diagnosis of Severe protein calorie malnutrition related to chronic metastatic breast cancer with chemo as evidenced by weight loss 13%/1 month; 21%/1 year; inadequate intake <75% needs >1 month; severe muscle wasting and fat loss. Please specify severity if known: * Mild * Moderate * Severe * Other/Unknown
[2024-03-02] MEDS: MAGNES & ALUM HYD/SIMETH/DIPHENHYD/LIDOCAINE 119 ML MOUTHWASH BY MOUTH ×4 (08:59→21:12)
[2024-03-02] MEDS: MUPIROCIN 2% OINT 22 GM TUBE 1 APPLIC EACH NARE ×2 (08:59→21:13)
[2024-03-02] MEDS: DOXYCYCLINE 100 MG/NS 100 ML 100 MG/100 ML BAG IVPB (08:59)
[2024-03-02] MEDS: NYSTATIN 100,000 UNITS/ML SUSP 5 ML ORAL.SUSP PO ×4 (09:00→21:12)
[2024-03-02] MEDS: PANTOPRAZOLE SODIUM IV 40 MG VIAL IV PUSH ×2 (09:00→21:13)
--- NOTE | 2024-03-02 09:31 | WPDINTPN ---
Progress Note: A&P Assessment and Plan (1) Shock: Code(s): R57.9 - Shock, unspecified Status: Acute Assessment and Plan: Shock likely related to septic shock secondary to left lower lobe pneumonia. Patient presented on 02/27/2024 with generalized weakness, decreased p.o. intake status post chemotherapy on 02/04/2024. -patient received 30 mL/kg IV fluids in the ER, started on cefepime, doxycycline and vancomycin (02/26) -has been off Levophed since 02/29/2024 at 4:00 p.m. -Levophed has been turned OFF since 1600 on 02/28 -02/26: Preliminary blood cultures are negative -02/27: Urine culture is negative so far 02/27: Sputum cultures showing growth of normal oropharyngeal delmar -urine Legionella antigen, mycoplasma pneumonia IgM and urine pneumococcal antigen are pending -influenza, COVID, RSV PCR were negative Patient states her blood pressures have normally been low with systolic blood pressures are normally in the 90s to 100s. 02/27/2024: CT chest/abdomen/pelvis 1. Consolidation the left lower lobe and cavitary mass in the lingula, both new since study from 2 months prior consistent with pneumonia. 2. Interval decrease in size of a right breast mass and enlarged previously FDG avid right axillary lymph node consistent with response to treatment of primary and metastatic right breast cancer. (2) Pneumonia involving left lung: Code(s): J18.9 - Pneumonia, unspecified organism Status: Acute Assessment and Plan: Pneumonia seen on chest CT as above -continue antibiotics (3) Pancytopenia: Code(s): D61.818 - Other pancytopenia Status: Acute Assessment and Plan: Patient with pancytopenia likely related to recent chemotherapy on 02/18/2024 -filgrastim x3 doses which ended on 03/01/2024 -continue neutropenic precautions -continue antibiotics as above -hematology/oncology has been consulted -patient had anemia (likely related to recent chemotherapy) with initial hemoglobin of 5.5 on admission status post 2 unit of packed RBCs on 02/28/2024 -02/27: hemoglobin this morning is 7.1 -02/28: Hemoglobin dropped to 6.5 will transfuse 2 unit of packed RBCs -03/01: Hemoglobin stable -no active bleeding noted 03/02: Hemoglobin improving Thrombocytopenia likely related to recent chemotherapy -no active bleeding noted, will continue to monitor -02/28: Platelets dropped to 25, will transfuse 1 unit of packed platelets -03/02: Platelet counts improving (4) Cancer of right breast: Qualifiers: Breast location: unspecified site of breast Estrogen receptor status: unspecified Patient sex: female Qualified Code(s): C50.911 - Malignant neoplasm of unspecified site of right female breast Code(s): C50.911 - Malignant neoplasm of unspecified site of right female breast Status: Acute Assessment and Plan: Metastatic right breast cancer status post recent chemotherapy on 02/18/2024 -follows with Dr. Donohue (5) Protein calorie malnutrition: Qualifiers: Protein-calorie malnutrition severity: unspecified severity Qualified Code(s): E46 - Unspecified protein-calorie malnutrition Code(s): E46 - Unspecified protein-calorie malnutrition Status: Acute Assessment and Plan: Protein calorie malnutrition, BMI of 18.5, albumin of 2.8 -encourage oral intake -supplements have been ordered Patient has odynophagia likely secondary to chemotherapy, patient on nystatin swish and swallow along with Magic mouthwash Plan DVT prophylaxis: SCDs, no chemoprophylaxis due to anemia and thrombocytopenia Stress ulcer prophylaxis: Continue Protonix Nutrition: Heart healthy diet Code Status: Full code Critical Care Time Spent: 31 minutes Updated patient with her condition and plan of care Patient was transferred to the ICU if okay with hospitalist Due to a high probability of clinically significant, life threatening deterioration, the patient require
[2024-03-02] MEDS: POTASSIUM/PHOSPHORUS/SODIUM 1.5 GM PACKET 1 PACKET PO (09:42)
--- NOTE | 2024-03-02 10:23 | PM.IMPN ---
Progress Note: A&P Assessment and Plan (1) Shock: Code(s): R57.9 - Shock, unspecified Status: Acute Assessment and Plan: Patient presents with weakness and found to have HoTN. Currently receiving chemo treatment for metastatic breast cancer. CT Ch/A/P showing consolidation the LLL and cavitary mass in the lingula, both new since study from 2 months prior. Shock likely related to septic shock secondary to LLL pneumonia. Consider also dehydration since not eating much due to odynophagia. She had neutropenic fever with ANC 50. Patient received 30 mL/kg IV fluids in the ER and started on cefepime, doxycycline and vancomycin (02/26) after appropriate cultures obtained. -despite the IV fluids blood pressures remain low and patient was started on Levophed through her port -Levophed was stopped 02/27 but she has been requiring this off/on. She was weaned off 02/28 at 1600. BCx 02/26: NGTD UCx 02/27: mixed genital delmar. Sputum Cx: negative WBC better at 4300. Fevers resolved. Continue IV abx. (2) Pneumonia involving left lung: Code(s): J18.9 - Pneumonia, unspecified organism Status: Acute Assessment and Plan: LLL airspace disease with lingula cavitary PNA. As above. (3) Pancytopenia: Code(s): D61.818 - Other pancytopenia Status: Acute Assessment and Plan: Patient with pancytopenia likely related to recent chemotherapy with counts showing WBC 100 (ANC 50), Hgb 5.5 and Plt 43K. She received 2U PRBCs and Hgb improved to 7 range. Filgrastim given as well. Hgb dropped to 6.5 and 2u PRBCs ordered. WBC 4300 and Plt 49K. No evidence of bleeding. WBC better but continue neutropenic precautions for now. Continue antibiotics as above Hematology/oncology has been consulted. Monitor counts (4) Cancer of right breast: Qualifiers: Breast location: unspecified site of breast Estrogen receptor status: unspecified Patient sex: female Qualified Code(s): C50.911 - Malignant neoplasm of unspecified site of right female breast Code(s): C50.911 - Malignant neoplasm of unspecified site of right female breast Status: Acute Assessment and Plan: Metastatic right breast cancer status post recent chemotherapy on 02/04/24 CT also showing interval decrease in size of a right breast mass and enlarged previously FDG avid right axillary lymph node consistent with response to treatment of right breast cancer. Follows with Dr. Donohue (5) Severe protein-calorie malnutrition: Code(s): E43 - Unspecified severe protein-calorie malnutrition Status: Acute Assessment and Plan: Patient with severe protein calorie malnutrition related to chronic metastatic breast cancer with chemo as evidenced by weight loss 13%/1 month; 21%/1 year; inadequate intake <75% needs >1 month; severe muscle wasting and fat loss. Encourage oral intake along with supplements Plan DVT prophylaxis: SCDs, no chemoprophylaxis due to anemia Stress ulcer prophylaxis: Protonix Nutrition: Regular diet Code Status: Full code Subjective Date/time seen: 03/02/24 10:23 Interval history: 63yo female with seizures, 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 No n/v. No CP or SOB. Eating better. Odynophagia better. Exam Narrative: AF 99.0 103/52 72 19 98% Gen - very thin female in NARD sitting up in bed feeding herself. HEENT - thrush much better, mmm Chest - lungs clear anteriorly and in the flanks. Port accessed in left upper chest CV - RRR S1/S2. Tele showing no significant dysrhythmias Abd - soft, +BS. Large appliance attached with yellow-brown stool in bag Ext - No pedal edema Neuro - Alert and appropriate. left hemiplegia Psych - Nml mood and aff
--- NOTE | 2024-03-02 12:08 | PCNFU ---
Nutrition Follow-Up Complete: Severe protein calorie malnutrition related to chronic metastatic breast cancer with chemo as evidenced by weight loss 13%/1 month; 21%/1 year; inadequate intake <75% needs >1 month; severe muscle wasting and fat loss. Increased protein energy needs related to wound healing as evidenced by stage 3 pressure injury to coccyx Goal: Optimize PO intake at least 50% meals and supplements Safe swallowing Patient is progressing towards goal. We will continue current goal. Pt current nutrition is soft and bite size, Level 6/Regular. Last recorded weight is 71.2 kg, up from 70.9 kg on 03/01. Bowel Motility: ostomy Labs Reviewed: Cr 0.4,Alb 2.9, Hct 24.2,Hgb 7.9 Meds Noted:Heparin, Protonix, Vancomycin. Skin: Stage III-coccyx. Additional Notes: Patient remains on a Soft and Bite, Sized Level 6 diet. Diet supplements of Enlive TID and Nutritional Ice Cream BID being consumed. Oral Intake is improving about 50% of meals. Diet supplements about 50% of supplements. Agree with diet orders. Monitoring intakes, weights, labs, supplement tolerance, plan of care and reassess every 5 days
[2024-03-02] MEDS: oxyCODONE HCL (*CRX) 5 MG TAB IR 15 MG PO (17:29)
--- NOTE | 2024-03-02 18:34 | PDONCCN ---
[facility] - Date of Consult Date/Time: 03/02/24 18:34 Requesting Physician: Sher Greenwood MD Primary Care Provider: UNKNOWN,DOCTOR - Consult Narrative Reason for consult: Breast cancer Narrative: Racquel Thomas is a 63 year old female with diagnosis of poorly differentiated invasive mammary carcinoma is stage III disease currently on ongoing chemotherapy with Adriamycin and Cytoxan and received cycle 3. On February 17. Patient also has history of seizure disorder and stroke. She has a history of GI bleed status post colostomy placement and then revision in 2022. She came into the hospital with generalized weakness. She had poor oral intake. She was tested negative for COVID and RSV. CT scan chest abdomen and pelvis showed left lower lobe consolidation consistent with pneumonia. She was started on cefepime and vancomycin for pneumonia and sepsis. She became hypotensive. Labs showed WBC count of 0.1. Patient did receive Neulasta on February 18. She was also anemic with hemoglobin of 6.4. Platelet count dropped to 18,000. Patient received 4 unit of packed red blood cells and 2 units of platelets so far. She was also seen by Dr. Maki for mastectomy. Her breast mass and right axillary lymph node has shrunk significantly. She just started feeling better. Review of Systems - Review of Systems All systems reviewed & are unremarkable except as noted in [facility] and [facility] Medical History: Medical History (Last Reviewed 02/27/24 @ 19:24 by Salima Pratt PA-C) Cancer of right breast Cerebral aneurysm Status post coiling. Chronic pain syndrome Chronic back pain and lower extremity pain due to venous stasis ulcers. On long-term opioids and medical marijuana. 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 Residual left-sided weakness. Venous stasis ulcer Surgical History: Surgical History (Last Reviewed 02/27/24 @ 19:24 by Salima Pratt PA-C) History of 2 sections History of colostomy History of craniotomy Related to cerebral aneurysm rupture and hemorrhagic stroke at the age of 20. History of hysterectomy Status post coil embolization of cerebral aneurysm Family History: Family History (Last Reviewed 02/27/24 @ 19:24 by Salima Pratt PA-C) Mother Diabetes mellitus Sibling Diabetes mellitus Cervical cancer Sibling Leukemia Sibling Lung cancer Sibling Liver cancer Sibling Lung cancer Other Family history of arthritis Family history of cancer - Social History Social History: Social History (Last Updated 02/27/24 @ 19:25 by Salima Pratt PA-C) Alcohol Use: Alcohol intake: never Substance Use: Substance use: former Substance use type: marijuana Substance use type: does not use Others: Spiritual care concerns: No Living Arrangements: Living arrangements: with roommate(s) Smoking Status: Smoking status: Former smoker Tobacco type: cigarettes Smoking Pack-years: Smoking packs per day: 2 Smoking cigarettes per day: 40.0 Years smoked: 5 Smoking pack-years: 10.00 Social Determinants of Health: Do You Feel Safe in your Home?: Yes Has the Lack of Transportation Kept You From Medical Appointments or From Getting Medications?: No Within the Past 12 Months, Were You Worried Whether Your Food Would Run Out Before You Got Money to Buy More?: Never True What is Your Housing Situation Today?: I Have Housing Are You Worried That in the Next 2 Months, You May Not Have Your Own Housing to Live In?: No Do You Have Trouble Paying Your Heating Or Electricity Bill?: No Do You Have Trouble Paying For Medicines?: No Are You Currently Unemployed and Looking for Work?: No Highest Level of Education Completed: High School Diploma/GED Do You Have Trouble With Childcare or the Care of a Famil
[2024-03-02] MEDS: DOXYCYCLINE HYCLATE 100 MG TABLET PO (21:12)
[2024-03-03] VITALS (8 sets, daily range): BP systolic 92–97; BP diastolic 41–49; PULSE 63–81; RESP 18–20; TEMP 36.1–36.4; O2SAT 96–99
[2024-03-03] MEDS: MAGNES & ALUM HYD/SIMETH/DIPHENHYD/LIDOCAINE 119 ML MOUTHWASH BY MOUTH ×3 (02:00→08:46)
[2024-03-03] MEDS: CEFEPIME 2 GM/NS 50 ML 2 GM/50 ML BAG IVPB (06:03)
[2024-03-03] MEDS: VANCOMYCIN 1,250 MG/NS 250 ML 1,250 MG/250 ML BAG 166.7 MG IVPB (06:04)
[2024-03-03] MEDS: CENTRAL LINE FLUSH 10 ML IV PUSH (06:05)
[2024-03-03 06:18] LABS: Basophils Percent Auto 0.7 % (0.2-1.2); Hematocrit 25.1 % (37.0-47.0); Hemoglobin 8.2 g/dL (12.0-15.0); Immature Granulocyte Absolute 1.12 K/mm3 (0.00-0.031); Immature Granulocyte Percent A 18.3 % (0-0.5); Immature Platelet Fraction Pct 7.1 % (0.9-11.2); Lymphocytes Absolute Auto 0.38 K/mm3 (0.9-3.2); Lymphocytes Percent Auto 6.2 % (18.3-44.2); Mean Corpuscular HGB Conc 32.7 g/dl (32-36); Mean Corpuscular Hemoglobin 31.3 pg (26-34); Mean Corpuscular Volume 95.8 fl (80-100); Mean Platelet Volume 11.7 fl (7.4-10.4); Monocytes Absolute Auto 1.1 K/mm3 (0.1-0.6); Monocytes Percent Auto 18.5 % (2.6-8.5); Neutrophils Absolute Auto 3.4 K/mm3 (1.3-6.7); Neutrophils Percent Auto 56.3 % (45.5-73.1); Nucleated Red Blood Cells Perc 1.5 % (0.0-0.2); Platelet Count Result 73 k/mm3 (150-375); Red Blood Count 2.62 M/mm3 (4.2-5.4); Red Cell Distribution Width 19.9 % (11.5-14.5); White Blood Count 6.1 K/mm3 (4.5-10.0)
[2024-03-03 06:29] LABS: Alanine Aminotransferase 17 U/L (6-35); Albumin Level 2.8 g/dL (3.5-5.1); Alkaline Phosphatase 103 U/L (38-126); Anion Gap 6 mmol/L (4-12); Aspartate Amino Transferase 20 U/L (14-36); Bilirubin,Total 0.8 mg/dL (0.2-1.3); Blood Urea Nitrogen 6 mg/dL (7-17); Calcium 9.6 mg/dL (8.4-10.2); Carbon Dioxide 23 mmol/L (22-30); Chloride 107 mmol/L (98-107); Estimated CRCL calculation 134 ml/min; Estimated Glomerular Filt Rate > 60; Glucose 91 mg/dL (65-110); Magnesium 1.6 mg/dL (1.6-2.3); Phosphorus 1.7 mg/dL (2.5-4.5); Potassium 3.3 mmol/L (3.4-5.0); Sodium 136 mmol/L (137-145)
[2024-03-03 06:56] LABS: Hypochromasia 1+; Platelet Estimate Decreased (Adequate)
[2024-03-03 06:57] LABS: Ovalocytes 1+; Schistocytes None Seen
[2024-03-03] MEDS: PANTOPRAZOLE SODIUM IV 40 MG VIAL IV PUSH (08:44)
[2024-03-03] MEDS: DOXYCYCLINE HYCLATE 100 MG TABLET PO (08:44)
[2024-03-03] MEDS: NYSTATIN 100,000 UNITS/ML SUSP 5 ML ORAL.SUSP PO (08:47)
[2024-03-03] MEDS: MUPIROCIN 2% OINT 22 GM TUBE 1 APPLIC EACH NARE (08:47)
--- NOTE | 2024-03-03 13:05 | PCPTNOTE ---
On 03/03/24, the student, [Rosalina Trinidad], provided care and completed [facility] documentation on this patient. I have reviewed the student's documentation and agree with the findings.
--- NOTE | 2024-03-03 13:12 | PM.DS ---
DS: Admitting Diagnosis Discharge Date 03/03/2024 Admitting Diagnosis Weakness. DS: Discharge Diagnosis Discharge Diagnosis (1) Shock: Code(s): R57.9 - Shock, unspecified Status: Acute Assessment and Plan: Patient presents with weakness and found to have HoTN. Currently receiving chemo treatment for metastatic breast cancer. CT Ch/A/P showing consolidation the LLL and cavitary mass in the lingula, both new since study from 2 months prior. Shock likely related to septic shock secondary to LLL pneumonia. Consider also dehydration since not eating much due to odynophagia. She had neutropenic fever with ANC 50. Patient received 30 mL/kg IV fluids in the ER and started on cefepime, doxycycline and vancomycin (02/26) after appropriate cultures obtained. -despite the IV fluids blood pressures remain low and patient was started on Levophed through her port -Levophed was stopped 02/27 but she has been requiring this off/on. She was weaned off 02/28 at 1600. BCx 02/26: NGTD UCx 02/27: mixed genital delmar. Sputum Cx: negative WBC better at 4300. Fevers resolved. Completed IV abx. (2) Pneumonia involving left lung: Code(s): J18.9 - Pneumonia, unspecified organism Status: Acute Assessment and Plan: LLL airspace disease with lingula cavitary PNA. As above. (3) Pancytopenia: Code(s): D61.818 - Other pancytopenia Status: Acute Assessment and Plan: Patient with pancytopenia likely related to recent chemotherapy with counts showing WBC 100 (ANC 50), Hgb 5.5 and Plt 43K. She received 2U PRBCs and Hgb improved to 7 range. Filgrastim given as well. Hgb dropped to 6.5 and 2u PRBCs ordered. WBC 4300 and Plt 49K. No evidence of bleeding. WBC better but continue neutropenic precautions for now. Continue antibiotics as above Hematology/oncology has been consulted. follow with hem/ oncology (4) Cancer of right breast: Qualifiers: Breast location: unspecified site of breast Estrogen receptor status: unspecified Patient sex: female Qualified Code(s): C50.911 - Malignant neoplasm of unspecified site of right female breast Code(s): C50.911 - Malignant neoplasm of unspecified site of right female breast Status: Acute Assessment and Plan: Metastatic right breast cancer status post recent chemotherapy on 02/04/24 CT also showing interval decrease in size of a right breast mass and enlarged previously FDG avid right axillary lymph node consistent with response to treatment of right breast cancer. Follows with Dr. Donohue (5) Severe protein-calorie malnutrition: Code(s): E43 - Unspecified severe protein-calorie malnutrition Status: Acute Assessment and Plan: Patient with severe protein calorie malnutrition related to chronic metastatic breast cancer with chemo as evidenced by weight loss 13%/1 month; 21%/1 year; inadequate intake <75% needs >1 month; severe muscle wasting and fat loss. 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 Patient presents with weakness and found to have HoTN. Currently receiving chemo treatment for metastatic breast cancer. CT Ch/A/P showing consolidation the LLL and cavitary mass in the lingula, both new since study from 2 months prior. Shock likely related to septic shock secondary to LLL pneumonia. Consider also dehydration since not eating much due to odynophagia. She had neutropenic fever with ANC 50. Patient received 30 mL/kg IV fluids in the ER and started on cefepime, doxycycline and vancomycin (02/26) after appropriate cultures obtained. -despite the IV fluids blood pressures remai
[2024-03-03 14:48] LABS: Pneumococcal Antigen Urine NOT DETECTED
[2024-03-04 01:38] LABS: Legionella pneumophila Ag Ur NOT DETECTED
[2024-03-04 19:13] LABS: Mycoplasma IgM Antibody Titer 126 U/mL
== END 2024-03-03 15:53 | disposition home or self-care (01) | DRG 871 ==
LOC: ANHED 08:59 → ANHIMU 13:47 → ANHICU 16:43 → ANHIMU 03-02 16:59
PROVIDERS: Internal Medicine; Physician Assistant; Admitting Provider Internal Medicine; Emergency Provider Emergency Medicine; Visit Provider Family Medicine
DX: A41.9 Sepsis, unspecified organism (principal); E43 Unspecified severe protein-calorie malnutrition; J18.9 Pneumonia, unspecified organism; R65.21 Severe sepsis with septic shock; C79.9 Secondary malignant neoplasm of unspecified site; D61.818 Other pancytopenia; I69.854 Hemiplegia and hemiparesis following other cerebrovascular disease affecting left non-dominant side; C50.911 Malignant neoplasm of unspecified site of right female breast; D64.81 Anemia due to antineoplastic chemotherapy; E86.0 Dehydration; G89.4 Chronic pain syndrome; G40.909 Epilepsy, unspecified, not intractable, without status epilepticus; I95.9 Hypotension, unspecified; Z86.718 Personal history of other venous thrombosis and embolism; Z92.21 Personal history of antineoplastic chemotherapy; Z20.822 Contact with and (suspected) exposure to COVID-19; Z87.891 Personal history of nicotine dependence; Z79.82 Long term (current) use of aspirin; Z68.21 Body mass index [BMI] 21.0-21.9, adult
CPT/HCPCS: 36415; 36430; 71045; 71260; 74177; 80048; 80053; 80202; 81001; 82274; 83605; 83735; 84100; 84145; 85025; 85027; 85055; 85380; 85384; 85610; 85652; 85730; 86140; 86738; 86850; 86900; 86901; 86920; 86923; 87040; 87070; 87086; 87088; 87205; 87449; 87637; 87641; 87651; 87899; 93005; 96361; 96365; 96366; 96367; 96375; 97162; 97166; 99285; A9270; G0378; J0692; J1642; J2470; J3370; J3475; J3480; J7030; J7050; J7120; P9016; P9034; P9047; Q5101; Q9967

== ENCOUNTER 2024-04-09 07:44 | Outpatient (CLI) | payer MEDICARE, MEDICAID, SELFPAY ==
--- NOTE | ~2024-04-09 | US_ITS ---
EXAMINATION: US venous doppler [facility] DATE: 04/09/2024 08:20 INDICATION: Left lower limb swelling. TECHNIQUE: Grayscale ultrasound images without and with compression and Doppler ultrasound images of the left lower extremity veins were obtained. COMPARISON: Ultrasound 03/17/2015 FINDINGS: The visualized portions of left profunda (deep) femoral vein, femoral vein, popliteal vein, peroneal veins, posterior tibial veins, and greater saphenous vein outflow are patent. There is hyperechoic li near nonocclusive thrombus in left common femoral vein. IMPRESSION: 1. Deep vein thrombosis involving left common femoral vein, likely chronic. Reviewed, dictated and finalized at location A.
== END 2024-04-09 07:45 | disposition home or self-care (01) ==
PROVIDERS: Visit Provider Internal Medicine Hematology & Oncology
DX: I82.402 Acute embolism and thrombosis of unspecified deep veins of left lower extremity (principal); M79.89 Other specified soft tissue disorders
CPT/HCPCS: 93971

== ENCOUNTER 2024-05-07 10:03 | Outpatient (CLI) | payer MEDICARE, MEDICAID, SELFPAY ==
--- NOTE | ~2024-05-07 | US_ITS ---
EXAMINATION: US carotid duplex BI DATE: 05/07/2024 11:24 INDICATION: History of TIA. TECHNIQUE: Grayscale, color Doppler, and pulsed Doppler images of the cervical carotid arteries were obtained. The degree of vessel stenosis is placed in one of the following categories: normal, <50%, 5 0-69%, >=70% but less than near-occlusion, near-occlusion, or total occlusion. Note that percent sten osis relative to normal distal artery lumen diameter is indirectly measured from velocity measurement s as described by Taco, et al. Radiology 2003; [id number]:[id number]. Notes: Normal: Peak systolic velocity <125 centimeters/sec and no plaque <50%. Peak systolic velocity <125 ( EDV <40; ICA/CCA PSV ratio <2.0; used these factors only a tandem lesions or low cardiac output or co ntralateral disease) 50-69 %: PSV 125-230 (EDV 40-100; ratio 2-4) >= 70% but less than near occlusion: PSV greater than 230 (EDV > 100; ratio> 4.0) Near Occlusion: PSV that is variable; markedly narrowed lumen Occlusion: Absent flow on color/spectral Doppler and no lumen on maurer scale. COMPARISON: None. FINDINGS: RIGHT: The right common carotid artery (CCA) peak systolic velocity (PSV) is 118 cm/s. The right internal ca rotid artery (ICA) PSV is 138 cm/s. The right ICA end-diastolic velocity (EDV) is 39 cm/s. The right ICA/CCA PSV ratio is 1.2. The external carotid artery (ECA) PSV is 101 cm/s. There is antegrade flow in the right vertebral artery. LEFT: The left CCA PSV is 116 cm/s. The left ICA PSV is 139 cm/s. The left ICA EDV is 33 cm/s. The left ICA /CCA PSV ratio is 1.2. The ECA PSV is 67 cm/s. There is antegrade flow in the left vertebral artery. IMPRESSION: 1. 50-69% stenosis in the right internal carotid artery by sonographic criteria. 2. 50-69% stenosis in the left internal carotid artery by sonographic criteria. Reviewed, dictated and finalized at location B. ER IMPRESSION: 1. 50-69% stenosis in the right internal carotid artery by sonographic criteria . 2. 50-69% stenosis in the left internal carotid artery by sonographic criteria.
== END 2024-05-07 10:04 | disposition home or self-care (01) ==
DX: I73.9 Peripheral vascular disease, unspecified (principal); I65.23 Occlusion and stenosis of bilateral carotid arteries; Z85.3 Personal history of malignant neoplasm of breast; Z86.73 Personal history of transient ischemic attack (TIA), and cerebral infarction without residual deficits
CPT/HCPCS: 93880

== ENCOUNTER 2024-07-17 15:49 | Emergency (ER) | payer MEDICARE, MEDICAID, SELFPAY ==
--- NOTE | ~2024-07-17 | CT_ITS ---
EXAMINATION: CT brain wo con DATE: 07/17/2024 17:13 INDICATION: trauma . TECHNIQUE: Computed tomography (CT) of the head was performed without intravenous contrast. The mA wa s adjusted according to patient size. Iterative reconstruction technique was employed. The dose-lengt h product was 605.33 mGy-cm. COMPARISON: 02/04/2024. FINDINGS: No acute intracranial hemorrhage or extra-axial fluid collection. No hydrocephalus, mass, or herniation. No acute ischemic infarct. Unremarkable dural venous sinus attenuation. No acute osseous abnormality. Right sided craniectomy defect. Lytic midline frontal bone lesion, with out aggressive features, unchanged. Trace left mastoid fluid. Mucosal thickening and aerated secretions in the bilateral maxillary sinuse s and right sphenoid sinus. Retention cyst/polyp in a right anterior ethmoid air cell, with mild ethm oid and right frontal mucosal thickening. Mild atrophy and chronic white matter change. Atherosclerotic intracranial calcification. Right MCA t erritory encephalomalacia. Vascular clips over the right hemisphere. IMPRESSION: No acute intracranial process. Chronic bilateral maxillary and right sphenoid sinusitis. Reviewed, dictated and finalized at location K. O VISUAL SECRETARY
--- NOTE | ~2024-07-17 | CT_ITS ---
EXAMINATION: CT facial & cervical spine wo DATE: 07/17/2024 17:13 INDICATION: trauma TECHNIQUE: Computed tomography (CT) of the maxillofacial region and cervical spine was performed with out intravenous contrast. Automated exposure control and iterative reconstruction technique were empl oyed. The dose-length product was 114.75 mGy-cm. COMPARISON: CT C-spine 10/29/2020 FINDINGS: CERVICAL: Vertebral Body Alignment: Intact. Craniocervical and atlantoaxial alignment: Moderate degenerative change. Alignment intact. Osseous structures/fracture: No evidence of a lytic or blastic process in the visualized spine. No e vidence of acute fracture. Cervical soft tissues: The paraspinal soft tissues planes are maintained. Degenerative changes: Multilevel severe degenerative disc disease in the lower cervical spine. Severe left neural foraminal narrowing at C5-6 secondary to degenerative changes. No severe central canal n arrowing. FACE: Soft Tissues: Mild subcutaneous stranding over the left face. Facial bones: No acute fracture. No lytic or blastic process. Eyes: The globes are intact. The soft tissue planes of the orbits are maintained. Paranasal Sinuses: Trace left mastoid fluid. Mucosal thickening and aerated secretions in the bilate ral maxillary and right sphenoid sinuses, with surrounding sclerosis. Right anterior ethmoid retentio n cyst/polyp. Mild thickening in the ethmoid and right frontal sinuses. Foreign Bodies: No radiopaque foreign bodies. Other Findings: None. IMPRESSION: No acute fracture or traumatic malalignment in the cervical spine. No acute facial bone fracture. Chr onic bilateral maxillary and right sphenoid sinusitis. Reviewed, dictated and finalized at location K. OGICAL MANAGER IMPRESSION: No acute fracture or traumatic malalignment in the cervical spine. No acute fac ial bone fracture. Chronic bilateral maxillary and right sphenoid sinusitis.
[2024-07-17 15:57] VITALS: BP 75/55; PULSE 62; RESP 19; TEMP 36.8; O2SAT 100
--- NOTE | 2024-07-17 16:52 | ED_ITS ---
HPI - General Adult General Chief complaint: Fall Stated complaint: fall, lip lac Time Seen by Provider: 07/17/24 16:18 History of Present Illness HPI narrative: 63-year-old female presented emergency department for evaluation after having a ground level fall. Patient did have a recent mastectomy done at [facility]. Patient states he does have baseline generalized weakness and this caused her to have a mechanical fall today. Patient did strike her face resulting in a lip laceration. Patient denies any other pain or injury. Related Data Home Medications ?Medication ?Instructions ?Recorded ?Confirmed ?Last Taken ?Type aspirin 325 mg tablet 325 mg PO DAILY 12/30/23 06/07/24 Unknown History ferrous sulfate 324 mg (65 mg 324 mg PO DAILY 02/13/24 06/07/24 Unknown History iron) tablet,delayed release oxycodone 30 mg tablet 30 mg PO DAILY PRN Pain (Scale 02/13/24 06/07/24 Unknown History Score 7-10) mecobalamin (vitamin B12) 5,000 5,000 mcg PO DAILY 02/27/24 06/07/24 Unknown History mcg chewable tablet Xarelto 1 tab-cap PO DAILY 04/21/24 06/07/24 Unknown History furosemide 40 mg tablet mg 07/17/24 Unknown History montelukast 10 mg tablet mg 07/17/24 Unknown History Allergies Allergy/AdvReac Type Severity Reaction Status Date / Time No Known Allergies Allergy Verified 07/17/24 15:23 Review of Systems 2 Review of Systems: All systems reviewed & are unremarkable except as noted in HPI and below PMFSH Past Medical History Medical History Cancer of right breast Venous stasis ulcer Chronic pain syndrome Chronic back pain and lower extremity pain due to venous stasis ulcers. On long-term opioids and medical marijuana. Inflammatory bowel disease Seizure disorder Cerebral aneurysm Status post coiling. 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 Residual left-sided weakness. Surgical History Surgical History History of colostomy History of craniotomy Related to cerebral aneurysm rupture and hemorrhagic stroke at the age of 20. History of 2 sections History of hysterectomy Status post coil embolization of cerebral aneurysm Family History Family History Mother Diabetes mellitus Sibling Diabetes mellitus Cervical cancer Sibling Leukemia Sibling Lung cancer Sibling Liver cancer Sibling Lung cancer Other Family history of arthritis Family history of cancer Social History Social History Social History: Surrogate decision maker: Seymour Urias, . Code status: Full code. Smoking packs per day: 2 Smoking cigarettes per day: 40.0 Years smoked: 5 Smoking pack-years: 10.00 Smoking status: Former smoker Tobacco type: cigarettes Alcohol intake: never Substance use: former Substance use type: does not use and marijuana Do You Feel Safe in your Home?: Yes Lack of Transportation: No Lack of Food: Never True Current Housing: I Have Housing Concerned About Future Housing: No Difficulty Paying Gas/Electric Bills: No Difficulty Paying for Meds: No Currently Unemployed: No Education: Decline to Answer Difficulty w/ Childcare or Family Care: No Living arrangements: with roommate(s) Additional living arrangements comments: Resides in [place] with her . Additional occupation/education comments: Disabled. Spiritual care concerns: No Exam 2 Narrative: APPEARANCE: Tired appearing HEAD: normocephalic, atraumatic. EYES: PERRLA/EOMI, conjunctivae clear. NOSE: Normal no drainage EARS:TMS clear with good light reflex. THROAT: Pharynx clear, no exudate. NECK: Supple. No adenopathy, no masses. RESPIRATORY: Airway patent, respirations nonlabored. Clear to auscultation bilaterally, no rales, rhonchi, wheezing. CARDIOVASCULAR: Regular rate and rhythm without murmurs rubs or gallops. ABDOMINAL: Soft, nontender, nondistended, normal bowel sounds MUSCULOSKELETAL: Moves all extremities. Strength/ROM intact, No edema, No calf tenderness. NEURO: Alert. Cranial nerves II through XII intact. Good gait. Good coordination SKIN: Lip laceration Course Vital Signs Vital signs: Vital Signs Temperature 98.2 F 07/17/24 15:57 Pulse Rate 62 07/17/24 15:57 Respiratory Rate 19 07/17/24 15:57 Blood Pressure 75/55 L 07/17/24 15:57 Pulse Oximetry 100 07/17/24 15:57 Oxygen Delivery Room Air 07/17/24 15:57 Temperature 98.2 F 07/17/24 15:57 Pulse Rate 69 07/17/24 18:15 Respiratory Rate 17 07/17/24 18:15 Blood Pressure 102/49 L 07/17/24 18:15 Pulse Oximetry 97 07/17/24 18:15 Oxygen Delivery Room Air 07/17/24 15:57 Procedures Laceration Laceration 1: Date: 07/17/24 Time: 16:56 Site: lip Size (cm): 3 Description: flap, irregular and involves yajaira border Depth: simple, single layer Local Anesthetic: lidocaine 1% and with bicarb Amount of anesthesia used (mL): 2 ====== Skin Level ====== ====== Subcutaneous Layer ====== ====== Muscle Layer ====== ====== Tendon Layer ====== Medical Decision Making MDM Narrative Medical decision making narrative: 63-year-old female presented emergency department for evaluation for facial laceration. Patient's blood pressures were low on arrival but did improve with IV fluids. Left laceration was repaired as described in the procedure note. Patient had negative head face and neck imaging. Patient hemoglobin was 7.9 which is similar to her previous baseline. No significant electrolyte abnormalities. Patient was negative influenza RSV and for COVID. Patient was updated on wound care and patient was encouraged of close follow-up with her physicians. All questions concerns were addressed. Differential Diagnosis Differential Diagnosis: Facial fracture, lip laceration, tubular adenoma, subarachnoid hemorrhage, cervical spine fracture, dehydration, acute kidney injury Vital Signs Vital Signs: Vital Signs Temperature 98.2 F 07/17/24 15:57 Pulse Rate 62 07/17/24 15:57 Respiratory Rate 19 07/17/24 15:57 Blood Pressure 75/55 L 07/17/24 15:57 Pulse Oximetry 100 07/17/24 15:57 Oxygen Delivery Room Air 07/17/24 15:57 Temperature 98.2 F 07/17/24 15:57 Pulse Rate 69 07/17/24 18:15 Respiratory Rate 17 07/17/24 18:15 Blood Pressure 102/49 L 07/17/24 18:15 Pulse Oximetry 97 07/17/24 18:15 Oxygen Delivery Room Air 07/17/24 15:57 Lab Data Lab results reviewed: Yes I reviewed the patient's lab results. 07/17/24 17:00 07/17/24 17:00 Labs: Lab Results 07/17/24 Range/Units 17:00 WBC 3.6 L (4.5-10.0) K/mm3 RBC 2.19 L (4.2-5.4) M/mm3 Hgb 7.9 L (12.0-15.0) g/dL Hct 25.1 L (37.0-47.0) % MCV 114.6 H (80-100) fl MCH 36.1 H (26-34) pg MCHC 31.5 L (32-36) g/dl RDW 17.1 H (11.5-14.5) % Plt Count 98 L (150-375) k/mm3 MPV 11.9 H (7.4-10.4) fl Immature Gran % (Auto) 0.3 (0-0.5) % Neut % (Auto) 74.9 H (45.5-73.1) % Lymph % (Auto) 11.8 L (18.3-44.2) % [place] % (Auto) 9.4 H (2.6-8.5) % Eos % (Auto) 2.8 (0-4.4) % Baso % (Auto) 0.8 (0.2-1.2) % Lymph # (Auto) 0.43 L (0.9-3.2) K/mm3 [place] # (Auto) 0.3 (0.1-0.6) K/mm3 Eos # (Auto) 0.1 (0-0.3) K/mm3 Baso # (Auto) 0.0 (0.0-0.1) K/mm3 Abs Immat Gran (auto) 0.01 (0.00-0.031) K/mm3 Absolute Neuts (auto) 2.7 (1.3-6.7) K/mm3 Absolute Nucleated RBC 0.000 (0.0-0.012) K/mm3 Nucleated RBC % 0.0 (0.0-0.2) % Platelet Estimate Decreased (Adequate) % Immature Plt Fraction 9.1 (0.9-11.2) % Anisocytosis 1+ Macrocytosis 2+ (NORMAL) Schistocytes None seen PT 15.8 H (11.1-14.7) Seconds INR 1.2 APTT 35.1 (22.3-36.8) Seconds Sodium 138 (137-145) mmol/L Potassium 3.5 (3.4-5.0) mmol/L Chloride 102 (98-107) mmol/L Carbon Dioxide 32 H (22-30) mmol/L Anion Gap 4 (4-12) mmol/L BUN 11 D (7-17) mg/dL Creatinine 0.47 L (0.7-1.0) mg/dL Estim Creat Clear Calc 95 ml/min Estimated GFR > 60 (59 - ) Glucose 136 H (65-110) mg/dL Calcium 9.4 (8.4-10.2) mg/dL Total Bilirubin 0.6 (0.2-1.3) mg/dL AST 33 (14-36) U/L ALT 17 (6-35) U/L Alkaline Phosphatase 104 (38-126) U/L Total Protein 7.0 (6.3-8.2) g/dL Albumin 3.1 L (3.5-5.1) g/dL Influenza A (RT-PCR) Negative (Negative) Influenza B (RT-PCR) Negative (Negative) RSV (RT-PCR) Negative (Negative) SARS-CoV-2 RNA (RT-PCR) Negative (Negative) Imaging Data Radiologist's impression: Impressions Head CT 07/17/24 17:19 IMPRESSION: No acute intracranial process. Chronic bilateral maxillary and right sphenoid sinusitis. Head/Cervical Spine/Facial Bones CT 07/17/24 17:25 IMPRESSION: No acute fracture or traumatic malalignment in the cervical spine. No acute facial bone fracture. Chronic bilateral maxillary and right sphenoid sinusitis. Discharge Plan Discharge Clinical Impression: Laceration of lip, Facial injury Patient Disposition: Home, Self-Care Condition: Stable Instructions: Antibiotic Form, Laceration (ED), Head Injury (ED) Additional Instructions: Wound care as directed. Have close follow-up with your primary care physician. If you have any worsening symptoms then please call or return to the emergency department. Patient Language: Bahraini Prescriptions: No Action furosemide 40 mg tablet montelukast 10 mg tablet oxycodone 30 mg tablet 30 mg PO DAILY PRN (Reason: Pain (Scale Score 7-10)) ferrous sulfate 324 mg (65 mg iron) Tablet,Delayed Release (Dr/Ec) 324 mg PO DAILY Xarelto 20 mg 1 tab-cap PO DAILY aspirin 325 mg Tablet 325 mg PO DAILY mecobalamin (vitamin B12) 5,000 mcg Tablet,Chewable 5,000 mcg PO DAILY Follow-up/Referrals: UNKNOWN,DOCTOR [Primary Care Provider] -
[2024-07-17] MEDS: SODIUM CHLORIDE 0.9% IV 1,000 ML 999 ML IV CONT (16:58)
[2024-07-17 17:09] LABS: Basophils Percent Auto 0.8 % (0.2-1.2); Eosinophils Absolute Auto 0.1 K/mm3 (0-0.3); Eosinophils Percent Auto 2.8 % (0-4.4); Hematocrit 25.1 % (37.0-47.0); Hemoglobin 7.9 g/dL (12.0-15.0); Immature Granulocyte Absolute 0.01 K/mm3 (0.00-0.031); Immature Granulocyte Percent A 0.3 % (0-0.5); Immature Platelet Fraction Pct 9.1 % (0.9-11.2); Lymphocytes Absolute Auto 0.43 K/mm3 (0.9-3.2); Lymphocytes Percent Auto 11.8 % (18.3-44.2); Mean Corpuscular HGB Conc 31.5 g/dl (32-36); Mean Corpuscular Hemoglobin 36.1 pg (26-34); Mean Corpuscular Volume 114.6 fl (80-100); Mean Platelet Volume 11.9 fl (7.4-10.4); Monocytes Absolute Auto 0.3 K/mm3 (0.1-0.6); Monocytes Percent Auto 9.4 % (2.6-8.5); Neutrophils Absolute Auto 2.7 K/mm3 (1.3-6.7); Neutrophils Percent Auto 74.9 % (45.5-73.1); Platelet Count Result 98 k/mm3 (150-375); Red Blood Count 2.19 M/mm3 (4.2-5.4); Red Cell Distribution Width 17.1 % (11.5-14.5); White Blood Count 3.6 K/mm3 (4.5-10.0)
[2024-07-17 17:16] LABS: Alanine Aminotransferase 17 U/L (6-35); Albumin Level 3.1 g/dL (3.5-5.1); Alkaline Phosphatase 104 U/L (38-126); Anion Gap 4 mmol/L (4-12); Aspartate Amino Transferase 33 U/L (14-36); Bilirubin,Total 0.6 mg/dL (0.2-1.3); Blood Urea Nitrogen 11 mg/dL (7-17); Calcium 9.4 mg/dL (8.4-10.2); Carbon Dioxide 32 mmol/L (22-30); Chloride 102 mmol/L (98-107); Estimated CRCL calculation 95 ml/min; Estimated Glomerular Filt Rate > 60; Glucose 136 mg/dL (65-110); Potassium 3.5 mmol/L (3.4-5.0); Sodium 138 mmol/L (137-145)
[2024-07-17 17:19] LABS: INR 1.2; Prothrombin Time 15.8 Seconds (11.1-14.7)
[2024-07-17 17:20] LABS: Partial Thromboplastin Time 35.1 Seconds (22.3-36.8)
[2024-07-17 17:43] LABS: Influenza A QL RT-PCR Negative (Negative); Influenza B QL RT-PCR Negative (Negative); RSV RNA, RT-PCR Negative (Negative); SARS-CoV-2 RNA PCR Negative (Negative)
[2024-07-17 17:45] LABS: Platelet Estimate Decreased (Adequate)
[2024-07-17 17:46] LABS: Anisocytosis 1+; Macrocytosis 2+ (NORMAL); Schistocytes None Seen
[2024-07-17 18:15] VITALS: BP 102/49; PULSE 69; RESP 17; O2SAT 97
--- OUTSIDE RECORDS SUMMARY | 2024-07-22 09:07 | XMS_ITS | Continuity of Care Document ---
Author Organization [facility] Address [address] [place] [address] Phone Care Team Providers Care Turf And Grounds Supervisor Name Role Phone Toro OD, Lion Unavailable Unavailable Advance Directives Directive Yes / No Effective Date File Name No Information Encounters Encounter Description Practice Location Reason(s) For Visit Diagnoses Date Provider Providers Copied on Encounter [facility], [address], [place], [place], [id number], [place] tel:[phone] [facility] No Information Jul-0 9-200 6 Toro OD Lion. [address] , [address], [place], [address], [place]. tel:[phone] Family History Family Member Type Diagnosis Age At Onset No Information Payers Payer name Insurance type Covered constitution party ID Authoriza tion(s) Medicare [facility] [id number] Social History Type Description Quantity Date Captured Comments Sex Female Smoking Status No Information Chief Complaint And Reason For Visit No Information Reason For Referral Reason For Referral No Information History Of Present Illness Encounter Date Complaint History Of Prese nt Illness No Information Functional Status Date Functional Assessmen t No Information Instructions Date Instruction Additional Infor mation No Information Assessments Type Assessment Date No Information Patient Care Teams Name Effective Dates (start - stop) Status Members No Information
--- OUTSIDE RECORDS SUMMARY | 2024-07-22 09:15 | XMS_ITS | Continuity of Care Document ---
Author Organization [facility] Address [address] [place] [address] Phone Care Team Providers Care Manager Enrollment Name Role Phone Toro OD, Lion Unavailable Unavailable Advance Directives Directive Yes / No Effective Date File Name No Information Encounters Encounter Description Practice Location Reason(s) For Visit Diagnoses Date Provider Providers Copied on Encounter [facility], [address], [place], [place], [id number], [place] tel:[phone] [facility] No Information Jul-0 9-200 6 Toro OD Lion. [address] , [address], [place], [address], [place]. tel:[phone] Family History Family Member Type Diagnosis Age At Onset No Information Payers Payer name Insurance type Covered libertarian ID Authoriza tion(s) Medicare [facility] [id number] Social History Type Description Quantity Date Captured [...]
== END 2024-07-17 18:17 | disposition home or self-care (01) ==
PROVIDERS: Emergency Provider Emergency Medicine
DX: S01.511A Laceration without foreign body of lip, initial encounter (principal); Z20.822 Contact with and (suspected) exposure to COVID-19; C50.911 Malignant neoplasm of unspecified site of right female breast; I69.354 Hemiplegia and hemiparesis following cerebral infarction affecting left non-dominant side; G40.909 Epilepsy, unspecified, not intractable, without status epilepticus; G89.4 Chronic pain syndrome; Z87.891 Personal history of nicotine dependence; Z90.10 Acquired absence of unspecified breast and nipple; Z90.710 Acquired absence of both cervix and uterus; Z79.82 Long term (current) use of aspirin; Z79.01 Long term (current) use of anticoagulants; J32.0 Chronic maxillary sinusitis; J32.3 Chronic sphenoidal sinusitis; W01.198A Fall on same level from slipping, tripping and stumbling with subsequent striking against other object, initial encounter
CPT/HCPCS: 12013; 36415; 70450; 70486; 72125; 80053; 85025; 85055; 85610; 85730; 87637; 99284; J7030

== ENCOUNTER 2024-07-27 12:51 | Outpatient (CLI) | payer MEDICARE, MEDICAID, SELFPAY ==
--- NOTE | ~2024-07-27 | DEXA_ITS ---
Bone Density Report Name: FREDY RYDER Age: 63 Sex: Female Ethnicity: White Date of : 1960 Indication: postmenopausal; screening for osteoporosis; height loss; cancer; seizure disorder; hysterectomy; Referring Provider: SONIA ANTONIO Study: Bone densitometry was performed. Exam Date: July 27, 2024 Accession number: [id number] Bone Density: Region BMD T-score Z-score Classification AP Spine(L1, L2, L3) 0.967 -0.5 1.0 Normal Femoral Neck (Left) 0.630 -2.0 -0.6 Osteopenia Total Hip (Left) 0.675 -2.2 -1.1 Osteopenia Femoral Neck (Right) 0.596 -2.3 -0.9 Osteopenia Total Hip (Right) 0.688 -2.1 -1.0 Osteopenia Total Hip Mean 0.681 -2.2 -1.1 Osteopenia World Health Organization criteria for BMD impression classify patients as: Normal (T-score at or above -1.0), Osteopenia (T-score between -1.0 and -2.5), or Osteoporosis (T-score at or below -2.5). 10-year Fracture Risk(1): Major Osteoporotic Fracture 10% Hip Fracture 1.7% Reported Risk Factors: [place] (), Neck BMD=0.596, BMI=22.5 (1) FRAX(R) Version 3.08. Fracture probability calculated for an untreated patient. Fracture probability may be lower if the patient has received treatment. Clinical Information Provided by Patient: Has used the following medications: Vitamin D, Calcium Has the following medical conditions: Any Seizure Disorders, Cancer, Hysterectomy Patient maximum height was 70 Menopause Age: 47 No regular weight bearing exercise Drinks caffeinated beverages Onset of menses at age 15 Number of children 2 Impression: The patient has low bone mass, based on the Right Femoral Neck T-score. The patient has an estimated ten-year risk of hip fracture of 1.7% and an estimated ten-year risk of major fracture of 10%, based on the WHO FRAX algorithm. Discussion: BONE DENSITY IS LOW AT ONE OR MORE SKELETAL SITES. This patient's lowest T-score is low at one or more skeletal sites. It meets the World Health Organization's (WHO) criteria for ?low bone mass? (T-score between -1.0 and -2.5). The patient's 10-year risk of fracture as calculated by FRAX is less than the threshold where pharmacological therapy is recommended by the National Osteoporosis Foundation (NOF). However, all treatment decisions require clinical judgment and consideration of individual patient factors, including patient preferences, comorbidities, previous drug use, risk factors not captured in the FRAX model (e.g., frailty, falls, vitamin D deficiency, increased bone turnover, interval significant decline in bone density) and possible under or overestimation of fracture risk by FRAX. The patient should follow a healthful lifestyle (good nutrition with adequate calcium and vitamin D, and appropriate weight-bearing exercise). Follow-Up: Consider repeating this study in 2 to 3 years to reassess this patient's status, or sooner if there is some new clinical indication. Reported by: KM on 07/27/2024 1:24:00 PM. Reviewed, dictated and finalized at location AArvin SAHA
--- OUTSIDE RECORDS SUMMARY | 2024-07-27 13:27 | XMS_ITS | Clinical Summary ---
Author Organization [facility] Address [address] [place] [address] Care Team Providers Care Pit Manager Name Role Phone Stephanie Singh MD Primary Care Provider [phone] Allergies Active Allergy Reactions Criticality Noted Date Comments No Known Allergies Other (See comments) Low 019 Reaction: Medications cannabidiol, CBD, (EPIDIOLEX) 100 mg/mL solution Take by mouth 2 (two) times a day Patient reports she takes CBD gummies as seizure prophylaxis Active atorvastatin (LIPITOR) 20 mg tablet Take 1 tablet (20 mg total) by mouth daily 30 tablet 3 Active dulaglutide (TRULICITY) 0.75 mg/0.5 mL pen injector Inject 0.5 mL (0.75 mg total) under the skin every 7 days 2 mL 3 Active Additional Information Patient not taking.Reported on 06/04/2023 aspirin 325 mg enteric coated tablet Take 1 tablet (325 mg total) by mouth daily 30 tablet 11 3 Active rivaroxaban (Xarelto) 20 mg tablet Take 1 tablet (20 mg total) by mouth daily with dinner 30 tablet 3 Active ascorbic acid (VITAMIN C) 500 mg tablet,chewable Take 1 tablet/chew tab (500 mg total) by mouth 2 (two) times a day 60 tablet/chew tab 3 Active gabapentin (NEURONTIN) 100 mg capsule Take 1 capsule (100 mg total) by mouth 3 (three) times a day 90 capsule 3 Active multivit-min #56-FA-vit K-Q10 (DEKAS PLUS) 200 mcg-1,000 mcg-10 mg tablet,chewable Take 1 tablet/chew tab by mouth daily 30 tablet/chew tab [address] (PROTONIX) 40 mg EC tabletIndicatio ns:Treatment of Non-Bleeding Gastric Disorder Take 1 tablet (40 mg total) by mouth daily 30 tablet 3 Active Additional Information Patient not taking.Reported on 06/04/2023 zinc sulfate (ZINCATE) 50 mg zinc (220 mg) capsule Take 1 capsule (220 mg total) by mouth daily 30 capsule 3 Active oxyCODONE (ROXICODONE) 10 mg tabletIndicatio ns:Pain Take 1 tablet (10 mg total) by mouth every 4 (four) hours as needed for pain for up to 15 doses 3 Active Additional Information Patient not taking.Reported on 06/04/2023 omeprazole (PriLOSEC) 20 mg capsule Take 1 capsule (20 mg total) by mouth daily Active Active Problems Problem Noted Date Diagnosed Date Encounter for ostomy nurse consultation 08/22/19 24 At high risk for malnutrition 04/24/2023 Assessment & Plan (05/17/2023 2:11 PM CONTINUITY DIRECTOR): 04/24 advanced to regular diet yesterday, low volume intake, baseline nausea (symptoms controlled), add supplements, check nutrition labs (ordered) 04/25 Albumin 2, Prealbumin 5. Continued poor PO intake, pending fluoro guided DHT, RD consult for TF recs, calorie counts 04/[address] consult, replace Dobhoff, continue tube feeds, calorie counts, adult regular diet 04/27 TF per small bowel tube at goal. Poor appetite. 04/28 Dobhoff accidentally pulled out overnight. 04/28 Will leave dobhoff out, encourage regular diet and supplements, assist with meals. 04/30-05/01 patient reports tolerance of shakes TID + po intake as able 05/02 Calorie count not well recorded, patient endorsing partial intake of shakes TID with minimal PO intake with meals 05/03 patient agreeable to alternate protein sources and shakes -- currently 4 supplements are delivered with every tray, requesting peanut butter 05/04 patient reports compliance with supplements 05/05 stop calorie counts 05/09: tolerating regular diet with good appetite. FU nutrition labs 05/10-05/17 Tolerating regular diet without n/v 04/25 Albumin 2, Prealbumin 5 05/02 Albumin 2.3, Prealbumin 12 05/10 Albumin 1.9, Prealbumin 11 Urinary retention 04/23/2023 Assessment & Plan (04/30/2023 11:09 AM CDT): 04/22 mckeon removed, failed void trial x2 04/23 mckeon reinserted, plan to discharge with catheter and void trial @ IPR when mobility improves and narcotic requirements decrease 04/24 plan for void trial @ [facility] 04/26 continue with Mckeon catheter. Creatinine stable 0.56, urine output 1450 cc/24 hour. 04/28 Mckeon catheter with sCr 0.49 04/29 Mckeon removed void trial, bethanecol 04/30 passed void trial overnight, RESOLVED Discharge planning issues 04/22/2023 Assessment & Plan (05/17/2023 2:12 PM CONTINUITY DIRECTOR): 04/22 Reportedly patient presented to OSH from home, baseline function is relatively independent with spousal support and walker vs cane for mobility, case management investigating, anticipate some type of placement when medically stable, PT/OT ordered 04/23 PT recs for inpatient rehab, case coordinator notified, ADD 04/25 04/24 patient agreeable to short term IPR placement in [place], [place] area -- case management aware, MAKAYLA gomez denied patient for medical reasons, [facility] evaluating, ADD 04/25 --- additional discussions with patient and - agreeable to 1 facility near home and if patient is not accepted will plan for home with home health, aware she will need 24h supervision 04/25 Pending fluoro guided DHT placement, RD consult for TF recs, continue PO diet with calorie counts 04/27 TF per small bowel tube at goal. Continues to have poor appetite. Will determine if G-tube needed. 04/28 PT/OT recommending SNF, SNF accepted for later this week if appetite improves. 04/30-05/01 stable for discharge to SNF (auth in process) 05/02 Wound vac removed after stool contamination. Pending CT A/P 05/03 holding discharge to end of next week given risk for evisceration 05/07-05/08 Patient is medically stable for discharge in AM, SW/CM updated. Discharge pending insurance authorization 05/09: WV placement today. Reevaluate midline wound and wound vac tomorrow. Awaiting insurance authorization for placement. 05/11: plan for VAC change Friday, evaluation of midline wound, r/o fistula 05/12: Wound vac change today 05/13-05/14: Patient is medically stable for discharge, SW/CM updated. Discharge pending facility acceptance 05/15 Patient was accepted to facility but new nursing staff shortage at facility causing hold to all incoming patients. New referrals sent per CM 05/16 Now midline BID Vashe WTD dressing due to multiple ileostomy stool contaminations. Medically ready for discharge. Accepted to facility pending insurance auth 05/17: Vashe WTD to midline. Ileostomy with appliance. No leaking on rounds. Medically ready for discharge. Accepted to facility pending insurance auth. F/u PCP: incidental findings of R breast nodules, thickened distal esophagus; as well as management of chronic medical conditions F/u prior vascular surgeon for assisted evaluation of 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 F/u [facility] for wound check and staple removal Acute pain 04/22/2023 Assessment & Plan (05/17/2023 2:13 PM CONTINUITY DIRECTOR): 04/22 pain controlled with lidoderm patches and dilaudid IV PRN, passed GARBAGE WORKER eval today, liberalize to oral multimodal regimen 04/23-04/26 patient reports pain controlled 04/27-05/01 Pain controlled with PRN oxycodone and scheduled tylenol and gabapentin 05/02 Increased gabapentin 100 TID, started Robaxin 05/03 patient reports improved pain control 05/04 increase oxy dose given h/o opioid exposure 05/05-05/11 improved pain control, minimal oxycodone use 05/16 Minimal oxycodone use, reduce to 5mg Q4H PRN 05/17: Reduced frequency of oxycodone from q4hour to q6 hour. In frequent use, pain controlled. Esophageal thickening 04/22/2023 Assessment & Plan (04/22/2023 10:27 AM CDT): Incidental finding on OSH CT 04/18 PPI on discharge F/u PCP vs referral to GI for EGD Chronic nausea 04/22/2023 Assessment & Plan (05/05/2023 10:42 AM CONTINUITY DIRECTOR): Patient reports symptoms controlled with CBD gummies - low threshold for marinol - zofran, compazine PRN 04/23 start marinol scheduled 04/24 symptoms controlled 04/27-present: No complaints of nausea. ABLA (acute blood loss anemia) 04/22/2023 Assessment & Plan (05/10/2023 12:25 PM CONTINUITY DIRECTOR): 04/22 hgb dropped post-op likely dilutional + OR losses, stable ~9 perioperatively, ileo output dark brown/black -- HDS, T&S with AM labs, transfuse for hgb <7, start PPI, continue heparin gtt for clot burden 04/23 hgb stable, stoma output improved, continue PPI and anticoagulation, daily labs 04/24 hgb lability but overall stable compared to previous days, continue PPI and anticoagulation, daily labs 04/26 HGB stable, 8.2 from 8.0 04/27 HGB stable 8.8 04/30 some lability in hgb without signs of active bleeding, recheck H&H with antiXa today --- labs stable, transitioned to xarelto 05/04 transition back to therapeutic lovenox given wound appearance, follow antiXa and titrate as appropriate 05/07 wound stable, OK for discharge in AM, resume xarelto 05/08: HgB 7.9; stable. HDS. Wound stable. Medically stable for discharge. Continue Xarelto. 05/10 hgb 8.4, HDS, continue xarelto stop daily labs Dysphagia 04/22/2023 Assessment & Plan (04/22/2023 10:29 AM CDT): - 04/21 failed bedside swallow in ICU - 04/22 passed GARBAGE WORKER eval for reg/thin, assist with feeds iso L hemiplegia RESOLVED DAKOTA (acute kidney injury) 04/20/2023 Assessment & Plan (04/22/2023 10:45 AM CDT): DAKOTA likely due to hypovolemia and sepsis 04/20: Low UOP, BUN 45 (37), Cr 1.31 (0.89). Continue management per ICU. 04/22 sCr NL, UOP 1225cc/24h, lytes NL RESOLVED Shock (CMS/HCC) 04/20/2023 Assessment & Plan (04/22/2023 10:32 AM CDT): Hypovolemic vs Septic etiology, favor sepsis 04/19: On phenylephrine gtt after surgery, weaned off but remained hypotensive. Lactate 2.5 --- ECHO EF 70-75%, grade I diastolic dysfunction, normal to hyperdynamic LV with basal septal hypertrophy, normal RV, prominent moderator band in RV without evidence for mass or thrombus 04/20: off pressors, UOP low. 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 SBO r/t parastomal hernia incarceration. --- transferred to [facility] for higher level of care 04/19 OR (Bre/Ronald) - Ex Lap, ANTONETTE, serosal repair x4, reduction of internal hernia, re-do end ileostomy with maturation , RLQ CRISTIANO 04/19 POD 0. NPO, NGT to LIWS, JAMELF, CRISTIANO drain output serosanguinous, IV Ertapenem for broad coverage 04/20 POD 1. NGT to gravity trial, ostomy functioning, continue IV Ertapenem for a total of 4 days 04/21 POD 2. NG removed by patient, improved renal function, somewhat confused. Can transfer to OU 04/22 POD3: AFVSS, TTF overnight, wbc 8 from 12, Erta, CRISTIANO 305cc/24h serosang, stoma 300cc/24h dark brown/black liquid, hgb stable, start PPI 04/23 POD4: AFVSS, tolerated CLD - advance to regular diet, last day of erta today, wbc NL, CRISTIANO 295cc/24h serous, midline wound care - photo uploaded 04/24 POD5: AFVSS, low volume regular diet intake, add supplements, wbc NL, CRISTIANO 160cc/24h serous, midline wound care - photo uploaded 04/25 POD6: AFVSS, continued low PO intake, pending fluoro guided DHT placement. RD consult for TF recs, continue PO diet with supplements and start calorie counts. CRISTIANO 120cc/24h serous. Midline wound stable, continue BID Vashe WTD dressing changes 04/26 wound VAC placement. Dobhoff replaced after accidentally being pulled out overnight. TF resumed in afternoon. 04/27 Tolerating TF at goal. Continues to have poor appetite. Midline WV in place, stool/gas in bag. 04/28 Dobhoff accidentally pulled out by patient overnight. Will continue with diet and calorie counts. Continues to have a poor appetite. Wound VAC change today. Ostomy with soft brown stool. CRISTIANO drain serous with scant drainage - removed 04/30 AFVSS, wbc stable, vac intact, plan for SNF to continue midline vac therapy on discharge, tolerating shakes TID, drain low output 05/01 AFVSS, tolerating shakes, labs stopped, restarted home xarelto, WV holding suction, ostomy with gas and stool in bag but minimal documentation. Pending insurance auth for SNF 05/02 WV contaminated with stool yesterday afternoon, taken down and noted increased necrosed sloughing of tissue to base of wound, changed to WTD Vashe. Wound check this morning now c/f underlying abdominal fluid collection and possible deep fascial dehiscence. Pending CT A/P with contrast. Labs stable. 05/03 AFVSS, CT yesterday with resolution of SBO and new pelvic fluid collection - IR consulted and currently not a candidate for drainage given accesibility, no abx - wbc 5 from 5 and wound stable - new photo uploaded. Keep inpatient due to risk for evisceration. 05/04 POD15. AFVSS, wbc 4 from 5, abx: none, midline wound now malodorous, new photo uploaded, keep inpatient due to risk for evisceration 05/05-05/06 [id number] AFVSS, wbc 4 from 4, abx: none, midline wound unchanged, new photo uploaded, stomal mucocutaneous separation unchanged, hold discharge for risk of evisceration 05/07 POD18 remains AFVSS, wbc stable, abx: none, midling wound photo uploaded and again stable with extensive visible PDS, WORN consulted for difficult pouching, OK for discharge - case management aware, ins auth required 05/08: POD 19. AFVSS. WBC 3.6. Midline wound stable with visible PDS and some leaking stool in wound bed from ileostomy. Ileostomy pouched by WORN. Medically stable for discharge to facility, awaiting insurance authorization. 05/09: POD 20. Colostomy OP 700ml/24hr; loose stool. Midline wound stable; PDS removed on rounds by attending. No sign of fistula tracts. Continues to have some stool leaking into wound from ileostomy. WBC 4.9. Afebrile. HDS. Plan: apply wound vac to midline incision with white foam sponge at base. Awaiting insurance authorization for facility placement. 05/[address], tolerating diet, apply binder 05/11 wound VAC intact; plan for vac change tomorrow 05/12: wound vac changed at bedside by WORN with white sponge 05/14: wound vac changed at bedside by WORN with white sponge 05/16 Ileostomy leaked into wound vac overnight requiring removal of WV and placement of WTD dressing. No plans to replace WV due to multiple complications of stool leaking. Remains medically ready for discharge pending insurance auth to facility 05/17: Midline incision with clean WTD dressing. No leaking of ileostomy stool contents into wound. No sign of evisceration. Ileostomy appliance with stool and gas; stoma pink. Medically ready for discharge; awaiting insurance authorization. Cultures Peritoneal fluid 04/19: e coli (ernst-sensitive), clostridium perfringens, mixed orgs Antibiotics Ertapenem 04/19-04/20, 04/22-04/23 Path 04/19: Small bowel, resection - Segment of small with severe ischemic changes, perforation, and abscess formation - Negative for dysplasia - Margin with ischemic changes Small bowel, Ileostomy - Skin and small bowel with ischemic changes SBO (small bowel obstruction) ([facility]) 04/18/20 23 Abscess of right buttock 02/28/2021 Ulcer of right lower extremi ty, limited to breakdown of skin 11/17/2018 Ulcer of left lower extremity, limited to breakd own of skin 11/17/2018 Venous insufficiency of leg 12/12/2016 Deep venous thrombosis ([facility]) 10/19/2016 Assessment & Plan (05/16/2023 10:06 AM CONTINUITY DIRECTOR): DVT (2012, on Xarelto, IVC filter) -Last dose three days prior to admission 04/18 CT c/o L common iliac in-stent thrombus -heparin gtt 04/23-04/24 transition to therapeutic lovenox given difficulty with reliable labs, antiXa due 04/25 @ 0100 (ordered) --- VSG consulted for in-stent thrombosis, no acute intervention warranted, f/u with previously established provider, continue anticoagulation 04/30 Lovenox adjusted based on antiXa, resume Xarelto given lab stability 05/04 transition back to therapeutic lovenox given wound appearance, follow antiXa and titrate as appropriate 05/07 wound stable, resume xarelto. Wound vac applied. 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 -Home regimen: ASA, xarelto -heparin gtt --> therapeutic lovenox, asa resumed 04/24 , xarelto resumed 04/30 Neuro exam stable and L hemiparesis per baseline, lovenox adjusted based on antiXa, plan to discharge on Xarelto, 04/25 new headache - CT obtained - NAICP Chest pain 09/24/2016 Cough 09/24/2016 Edema of lower extremity 09/24/2016 Dizziness 09/24/2016 Fluttering heart 09/24/2016 Joint pain 09/24/2016 Seizure 09/24/2016 Assessment & Plan (04/24/2023 10:04 AM CDT): Reports being discontinued from the tegretol for several years, and that she now controls seizures with CBD gummies - low threshold for marinol - last seizure: 1988 - seizure precautions 04/23 start marinol --- no plan to continue marinol on discharge, f/u with PCP Problem 02/04/2013 Surgical History Surgery Date Site/Laterality Comments SECTION CEREBRAL ANEURYSM REPAIR Medical History Medical History Date Comments Stroke (HCC) 1980 History of colon resection 2012 Encounter for ostomy nurse consultation 08/22/19 24 Family History Medical History Relation Name Comments Diabetes Mother Emphysema Mother Relation Name Status Comments Father Mother Social History Tobacco Use Types Packs/Day Years Used Date Smoking Tobacco: Former Cigarettes Q uit: 11/17/1993 Smokeless Tobacco: Never Tobacco Cessation:Counseling Given: Not Answered AUDIT-C Answer Date Recorded Q1: How often do you have a drink containing alc ohol? Never 04/18/2023 Average Number of Drinks Not on file 023 Frequency of Binge Drinking Not on file 03/31 Hunger Vital Sign Answer Date Recorded Within the past 12 months, y ou worried that your food would run out before you got the money to buy more. Never true 06/04/20 23 Within the past 12 months, t he food you bought just didn't last and you didn't have money to get more. Never true 06/04/2023 Personal Safety Answer Date Recorded Have you ever been in or are you currently in a harmful physical or emotional relationship or is someone making you feel afraid or unsafe? Denies 04/18/2023 Comments No Sex and Gender Information Value Date Recorded Sex Assigned at Not on file Legal Sex Female 4:26 AM CONTINUITY DIRECTOR Gender Identity Not on file Sexual Orientation Not on file Obstetrics History Last Filed Vital Signs Vital Sign Reading Time Taken Comments Blood Pressure 123/61 06/04/2023 1:00 PM CONTINUITY DIRECTOR Pulse 92 06/04/2023 1:00 PM CONTINUITY DIRECTOR Temperature 36.6 ??C (97.9 ??F) 06/04/2023 1:00 PM CS T Respiratory Rate 18 05/18/2023 11:39 AM CONTINUITY DIRECTOR Oxygen Saturation 96% 06/04/2023 1:00 PM CONTINUITY DIRECTOR Inhaled Oxygen Concentration - - Weight 67.6 kg (149 lb) 06/04/2023 1:00 PM CONTINUITY DIRECTOR Height 175.3 cm (5' 9 ) 06/04/2023 1:00 PM CONTINUITY DIRECTOR Body Mass Index 22 06/04/2023 1:00 PM CONTINUITY DIRECTOR Plan of Treatment Health Maintenance Due Date Last Done Comments Breast Cancer Screening-Mammogram 1962 Colon Cancer Screening-Colonoscopy 1962 Depression Screening 1962 Hepatitis C Screening 1962 Hepatitis B Screening 1980 Regular Well Visit/Exam 18-64 1980 Zoster Vaccine (2 of 2) 09/19/2022 07/25/2022 Influenza Vaccine (#1) 2024 3, 04/23/2022, 03/17/2020, Additional history exists DTaP/Tdap/Td Vaccine (2 - Td or Tdap) 04/03/2032 04/03/2022 Colon Cancer Screening-CT Colonography Discontinued 07/17/2012 Colon Cancer Screening-DNA Stool Discontinued 07/17/2012 Colon Cancer Screening-Sigmoidoscopy Discontinued 07/17/2012 Colon Cancer Screening-FIT Discontinued 08/26, 08/25/2013, 08/04/2012, Additional history exists Pneumococcal vaccine <65 Aged Out 03/17/2020 No longer eligible based on patient's age to complete this topic Medical Devices Implanted Type Area Solar Electric Installer Device Identifier Shelf Expiration Date Model / Serial / Lot [employer] Seprafilm 6x5in Barrier Adhesion Sterile Disposable Latex Free [id number] - [id number] Implanted:Qty : 1 on 04/19/2023 by Abran Cardenas DO at [facility] Other - see comments N/A: Abdomen [employer] [id number] 04/25/2024 [id number] / / [id number] [employer] Seprafilm 6x5in Barrier Adhesion Sterile Disposable Latex Free [id number] - [id number] Implanted:Qty : 1 on 04/19/2023 by Abran Cardenas DO at [facility] Other - see comments N/A: Abdomen Starkey MDCapsule Nancy [id number] 03/27/2024 [id number] / / [id number] Procedures Procedure Name Priority Date/Time Associated Diagnosis Comments OCCULT BLOOD, FECAL (FIT) Routine 08/26/2013 6:00 AM CONTINUITY DIRECTOR FLEXIBLE SIGMOIDOSCOPY REPORT 07/17/2012 from Last 3 Months or Most Recently Relevant to Health Maintenance Results * Occult blood, fecal non neoplasm screening (08/26/2013 6:00 AM CONTINUITY DIRECTOR) Stool Occult Blood NEGATIVE NEGATIVE 08/26/2013 8:07 AM CONTINUITY DIRECTOR [facility] 55social HISTORICAL RESULTS 08/26/2013 6:00 AM CONTINUITY DIRECTOR 08/26/2013 7:31 AM CONTINUITY DIRECTOR Narrative [facility] [employer] HISTORICAL RESULTS - 08/26/2013 8:07 AM CONTINUITY DIRECTOR Collected By CJ ?? 193 Stephanie Singh MD LAB BODY FLUIDS AND STOOLS ORD ERABLES Final Result [facility] HISTORICAL RESULTS * FLEXIBLE SIGMOIDOSCOPY REPORT (07/17/2012) Anatomical Region Laterality Modality Other Narrative 07/17/2012 Ordered by an unspecified provider. Historical Provider GI PROCEDURE ORDERABLES F inal Result from Last 3 Months or Most Recently Relevant to Health Maintenance Insurance [employer] CHOICE MEDICARE PPO [facility] [employer] MEDICARE HMO MEDICARE SOLUTIONS [employer] MEDICARE HMO Advance Directives For more information, please contact: [phone] Documents on File Type Date Recorded Patient Mysql Dba Expl anation ADVANCE DIRECTIVE 08/18/2012 12:00 AM DNR ADVANCE DIRECTIVE 10/23/2011 12:00 AM SONIYA R OF SECURED ENTRANCE MONITOR FINANCIAL/MEDICAL * Full Code (Latest Code Status on File) Date Activated Date Inactivated Comments 04/19/2023 11:04 AM 05/18/2023 5:10 PM Care Teams Pit Manager Relationship Specialty Start Date End Date Stephanie Singh MD PCP - General Internal Medicine 11/09/18
--- OUTSIDE RECORDS SUMMARY | 2024-07-27 13:27 | XMS_ITS | Encounter Summary ---
Author Organization [facility] Healthcare Address [address] [place] [address] Care Team Providers Care Sr. Unix System Administrator Name Role Phone Stephanie Singh MD Primary Care Provider [phone] Encounter Details Date Type Department Care Team (Late st Contact Info) Description 04/19/[address] [id number] Latia Taylor RN Social History Tobacco Use Types Packs/Day Years Used Date Smoking Tobacco: Former Cigarettes Q uit: 11/17/1993 Smokeless Tobacco: Never AUDIT-C Answer Date Recorded Q1: How often do you have a drink containing alc ohol? Never 04/18/2023 Average Number of Drinks Not on file 023 Frequency of Binge Drinking Not on file 03/31 Personal Safety Answer Date Recorded Have you ever been in or are you currently in a harmful physical or emotional relationship or is someone making you feel afraid or unsafe? Denies 04/18/2023 Comments No Sex and Gender Information Value Date Recorded Sex Assigned at Not on file Legal Sex Female 4:26 AM [employer]ATE [employer] Gender Identity Not on file Sexual Orientation Not on file documented as of this encounter Plan of Treatment Not on file documented as of this encounter Visit Diagnoses Not on filedocumented in this encounter Care Teams Sr. Unix System Administrator Relationship Specialty Start Date End Date Stephanie Singh MD PCP - General Internal Medicine 11/09/18 documented as of this encounter
--- OUTSIDE RECORDS SUMMARY | 2024-07-27 13:27 | XMS_ITS | Clinical Summary ---
Author Organization [facility] Address [address] [place] [address] Care Team Providers Care Lube Man Name Role Phone Nayely Singh MD Primary Care Provider Allergies No known active allergies Medications oxyCODONE (ROXICODONE) 30 mg tablet 12/08/2023 Active furosemide (LASIX) 40 mg tablet Take 40 mg by mouth. Active montelukast (SINGULAIR) 10 mg tablet Take 10 mg by mouth daily. 11/04/2023 Active ondansetron (ZOFRAN ODT) 8 mg Tablet, Rapid Dissolve Dissolve 1 tablet on top of tongue then swallow with saliva every 8 hours as needed for nausea or vomiting 30 Tablet 1 01/13/2024 Active ferrous gluconate 324 mg (38 mg iron) tablet TAKE 1 TABLET BY MOUTH 2 TIMES PER DAY WITH WATER OR JUICE BETWEEN MEALS Active CYANOCOBALAMIN, VITAMIN B-12, ORAL Take by mouth. Active cannabidioL (EPIDIOLEX) 100 mg/mL Solution Take by mouth 2 times daily. Active potassium CHLORIDE (KAYCIEL) 20 mEq/15 mL solution TAKE 15 ML BY MOUTH EVERY DAY Active lidocaine-prilo raza (EMLA) 2.5-2.5 % Cream Apply a quarter size amount to port site 30 minutes before needle stick. 30 Gram 1 03/17/2024 Active dexAMETHasone (DECADRON) 4 mg tablet Take 1 tablet by mouth BID day before treatment, day of treatment, and day after treatment. 6 Tablet 3 03/25/2024 Active rivaroxaban (XARELTO) 20 mg Tablet Take 1 Tablet (20 mg) by mouth daily. 30 Tablet 3 04/09/2024 Active methadone (DOLOPHINE) 10 mg Tablet Take 10 mg by mouth daily. Active Hospital, Clinic, or Other Facility Administered Medication Ordered Dose Route Frequency Start Date End Date Status lidocaine PF 1% (XYLOCAINE MPF) injection 2 mLIndications:Seroma of breast 2 mL Ifil ONE TIME ONLY 06/28/2024 06/28/2024 Ended Active Problems Patient Care Coordination No te Formatting of this note migh t be different from the original. Primary Care: Nayely Singh MD Referring Provider: Sascha Donohue MD [address] [place] [address] [address] [place] [address] Other: Dr. Curtis Woods MD Problem Noted Date Diagnosed Date Protein-calorie malnutrition, severe 06/15/2024 Malignant neoplasm of upper- outer quadrant of right breast in female, estrogen receptor positive 02/23/2024 Cancer Staging:Clinical stage from 02/19/2024:Stage IIIB(cT3, cN1, cM0, G3, ER+, UT-, HER2-) - Signed by Curtis Woods MD on 02/23/2024 Pathologic stage from 06/14/2024: ypT2, pN1a, cM0, G3, ER+, UT-, HER2- - Signed by Curtis Woods MD on 07/02/2024 Coronary artery disease invo lving [place] coronary artery of [place] heart without angina pectoris 05/23/2023 Hyperlipidemia, unspecified 05/18/2023 Personal history of other venous thrombosis and embolism 05/18/2023 S/P IVC filter 12/25/2016 Brain aneurysm 11/25/2016 H/O colectomy 11/25/2016 History of heart artery stent 11/25/2016 History of seizures 11/25/2016 History of cerebrovascular accident 11/22/2016 History of pulmonary embolism 10/19/2016 Peripheral arterial occlusive disease 10/19/2016 Encounters Date Type Department Care Team Description 07/26/2024 Orders Only [facility] Oncology and Hematology - [place]am[place] [address] [facility] [address] [place] [address] Sascha Donohue MD Malignant neoplasm of lower-outer quadrant of right breast of female, estrogen receptor positive (CMS/HCC) 07/21/2024 External Device Data STL ABSTRACTION Provider, Abstract 07/21/2024 External Device Data STL ABSTRACTION Provider, Abstract 07/20/2024 Orders Only [facility] Oncology and Hematology [facility] [address] [place] [address] Sascha Donohue MD 07/19/2024 1:00 PM DIRECTOR OF EARLY CHILDHOOD Office Visit [facility] Oncology and Hematology [facility] [address] [place] [phone] Sascha Donohue MD Osteopenia of multiple sites (Primary Dx) 07/14/2024 External Device Data STL ABSTRACTION Provider, Abstract 07/13/2024 Orders Only [facility] Oncology and Hematology [facility] [address] [place] [id number] Sascha Donohue MD 07/13/2024 Telephone [facility] Breast Surgery [address] [facility] [address] [place] [address] Sarika Callahan, RN Drain Removal 07/12/2024 Orders Only [facility] Oncology and Hematology [facility] [address] [place] [address] Sascha Donohue MD Malignant neoplasm of lower-outer quadrant of right breast of female, estrogen receptor positive (CMS/HCC) 07/08/2024 Telephone [facility] Breast [facility] [address] Davis [address] [facility] [address] [place] [address] Yu Hawkins FNP Called to check on patient 07/02/2024 9:45 AM DIRECTOR OF EARLY CHILDHOOD Office Visit [facility] Breast Surgery Gianni Davis [address] [address] [facility] [address] [facility] [address] Curtis Woods MD Recurrent seroma of breast (Primary Dx); Seroma of breast; S/P right mastectomy; Breast cancer metastasized to axillary lymph node, right (CMS/HCC); Malignant neoplasm of upper-outer quadrant of right breast in female, estrogen receptor positive (CMS/HCC); Left hemiparesis (CMS/HCC) 06/28/2024 2:15 PM DIRECTOR OF EARLY CHILDHOOD Clinical Support [facility] Breast [facility] [address] Davis [address] [place] [address] Yu Hawkins, BRYAN Seroma of breast (Primary Dx); S/P mastectomy, right; Invasive ductal carcinoma of right breast (CMS/HCC); Breast cancer metastasized to axillary lymph node, right (CMS/HCC); Malignant neoplasm of upper-outer quadrant of right breast in female, estrogen receptor positive (CMS/HCC); Encounter for ostomy care education; Left hemiparesis (CMS/HCC); 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 (CMS/HCC); Transportation unavailable 06/28/2024 Telephone [facility] [address] [address] [address] [place] [address] Yu Hawkins FNP I placed call to [facility] 06/28/2024 Orders Only [facility] Oncology and Hematology [address] [address] Sascha Donohue MD Seroma of breast (Primary Dx); Malignant neoplasm of lower-outer quadrant of right breast of female, estrogen receptor positive (CMS/HCC) 06/25/2024 Telephone [facility] [address] [place] [address] Sarika Callahan show host Check 06/21/2024 1:30 PM DIRECTOR OF EARLY CHILDHOOD Clinical Support [facility] [address] [place] [address] [place] [address] Yu Hawkins FNP S/P mastectomy, right (Primary Dx); Invasive ductal carcinoma of right breast (CMS/HCC); Breast cancer metastasized to axillary lymph node, right (CMS/HCC); Malignant neoplasm of upper-outer quadrant of right breast in female, estrogen receptor positive (CMS/HCC); Encounter for ostomy care education; 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); Left hemiparesis (CMS/HCC); 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 (CMS/HCC) 06/21/2024 Telephone [facility] [address] Davis [address] [place] [address] Sarika Callahan RN Wound Check 06/16/2024 Telephone [facility] Breast Surgery Gianni Davis [address] [facility] [address] [place] [address] Curtis Woods MD Needs Appointment 06/15/2024 External Device Data STL ABSTRACTION Provider, Abstract 06/14/2024 10:02 AM DIRECTOR OF EARLY CHILDHOOD Anesthesia Event [facility] Operating Room [address] [place] [address] Lisa Gold MD Turnbough, Christopher J, PA 06/14/2024 8:48 AM DIRECTOR OF EARLY CHILDHOOD - 06/14/2024 11:46 AM DIRECTOR OF EARLY CHILDHOOD Surgery [facility] Operating Room [address] [place] [address] Curtis Woods MD BREAST MASTECTOMY SIMPLE 06/14/2024 8:00 AM DIRECTOR OF EARLY CHILDHOOD - 06/14/2024 11:59 PM DIRECTOR OF EARLY CHILDHOOD Hospital Encounter [facility] [address] [place] [address] Curtis Woods MD Discharge Disposition: Home or Self Care 06/14/2024 5:59 AM DIRECTOR OF EARLY CHILDHOOD - 06/15/2024 12:45 PM DIRECTOR OF EARLY CHILDHOOD Hospital Encounter [facility] [address] [place] [address] Curtis Woods MD Malignant neoplasm of upper-outer quadrant of right breast in female, estrogen receptor positive (CMS/HCC) Discharge Disposition: Home or Self Care 06/14/2024 Orders Only [facility] Oncology and Hematology - [place] [address] [place] [address] Sascha Donohue MD Malignant neoplasm of lower-outer quadrant of right breast of female, estrogen receptor positive (CMS/HCC) 06/10/2024 2:00 PM DIRECTOR OF EARLY CHILDHOOD - 06/10/2024 11:59 PM DIRECTOR OF EARLY CHILDHOOD Hospital Encounter [facility] [address] [place] [address] Curtis Woods MD Discharge Disposition: Home or Self Care 06/09/2024 [facility] [address] [facility] [address] [place] [address] Keira Edgar, RN 06/09/2024 Chart Note [facility] Oncology Patient Navigation [address] [place] [address] Esther Maria LCSW 06/09/2024 Chart Note [facility] [address] [facility] [address] [place] [address] Xin Gamez RN 06/08/2024 Chart Note [facility] [address] Davis [address] [facility] [address] [place] [address] Xin Gamez RN 05/31/2024 Orders Only [facility] Oncology [facility] - [place] [address] [place] [phone] Sascha Donohue MD Malignant neoplasm of lower-outer quadrant of right breast of female, estrogen receptor positive (CMS/HCC) 05/20/2024 2:00 PM DIRECTOR OF EARLY CHILDHOOD Office Visit [facility] Oncology and Hematology - [place] [address] [place] [address] Sascha Donohue MD Malignant neoplasm of lower-outer quadrant of right breast of female, estrogen receptor positive (CMS/HCC) (Primary Dx) 05/20/2024 Orders Only [facility] Oncology and Hematology - [place] [address] [place] [address] Sascha Donohue MD 05/18/2024 Telephone [facility] Oncology and Hematology - [place] [address] [place] [address] Sascha Donohue MD Lab Results (For treatment) 05/17/2024 Orders Only [facility] Oncology and Hematology - [place] [address] [place] [address] Sascha Donohue MD Malignant neoplasm of lower-outer quadrant of right breast of female, estrogen receptor positive (CMS/HCC) 05/05/2024 Orders Only [facility] Oncology and Hematology - [place]am[place] [address] [place] [phone] Sascha Donohue MD 05/04/2024 Orders Only [facility] Oncology and Hematology - [place] [address] [place] [address] Sascha Donohue MD 05/03/2024 Orders Only [facility] Oncology and Hematology - [place] [address] [place] [address] Sascha Donohue MD Malignant neoplasm of lower-outer quadrant of right breast of female, estrogen receptor positive (CMS/HCC) from Last 3 Months Family History Medical History Relation Name Comments Leukemia Brother 1 Cancer Brother 2 blood cancer Cancer Brother 3 blood cancer Lung Cancer Brother 4 Brain Cancer Sister Relation Name Status Comments Brother 1 Alive Brother 2 Alive Brother 3 Alive Brother 4 Alive Father Mother Sister Alive Social History Tobacco Use Types Packs/Day Years Used Date Smoking Tobacco: Former Cigarettes 1 21 1 979 - 1999 Smokeless Tobacco: Never Tobacco Cessation:Counseling Given: Not Answered Alcohol Use Standard Drinks/Week Comments Never 0 (1 standard drink = 0.6 oz pur e alcohol) Feeling Safe Answer Date Recorded Within the last year, have y ou been afraid of your partner or ex-partner? No 03/30/2024 Emotionally Abused Not on file 03/30/2024 Within the last year, have y ou been kicked, hit, slapped, or otherwise physically hurt by your partner or ex-partner? No 03/30/2024 Sexually Abused Not on file 03/30/2024 Feeling Safe Answer Date Recorded Are you in a relationship wi th someone who hurts you emotionally and/or physically? Patient unable to answer 06/14/2024 Comments No Sex and Gender Information Value Date Recorded Sex Assigned at Not on file Legal Sex Female 5:41 AM DIRECTOR OF EARLY CHILDHOOD Gender Identity Not on file Sexual Orientation Not on file Last Filed Vital Signs Vital Sign Reading Time Taken Comments Blood Pressure 95/53 07/19/2024 1:21 PM DIRECTOR OF EARLY CHILDHOOD Pulse 59 07/19/2024 1:21 PM DIRECTOR OF EARLY CHILDHOOD Temperature 36.5 ??C (97.7 ??F) 07/19/2024 1:21 PM CS T Respiratory Rate 14 07/19/2024 1:21 PM DIRECTOR OF EARLY CHILDHOOD Oxygen Saturation 95% 07/19/2024 1:21 PM DIRECTOR OF EARLY CHILDHOOD Inhaled Oxygen Concentration - - Weight 56.9 kg (125 lb 6.4 oz) 07/19/2024 1:21 P M DIRECTOR OF EARLY CHILDHOOD Height 177.8 cm (5' 10 ) 07/02/2024 8:19 AM DIRECTOR OF EARLY CHILDHOOD Body Mass Index 17.99 07/02/2024 8:19 AM DIRECTOR OF EARLY CHILDHOOD Plan of Treatment Upcoming Encounters Date Type Department Care Team (Late st Contact Info) Description 08/03/2024 4:30 PM DIRECTOR OF EARLY CHILDHOOD Telephone Check Up [facility] Oncology and Hematology [facility] [address] [facility] [address] [place] [address] Sascha Donohue MD [address] [facility] [address] [place] [address] 08/06/2024 9:45 AM DIRECTOR OF EARLY CHILDHOOD Office Visit [facility] Breast Surgery Gianni Davis [address] [facility] [address] [place] [address] [place] [address] [address] [place] [address] Health Maintenance Due Date Last Done Comments CERVICAL CANCER SCREENING 1992 FIT-DNA Q 3 years 2007 FIT/FOBT Q 1 year 2007 Flex Sig/CT Colonography Q 5 years 2007 RSV VACCINE (60+ or ) (1 - Risk 60-74 years 1-dose series) 2022 ZOSTER VACCINE (2 of 2) 09/19/2022 07/25/2022 INFLUENZA VACCINE (#1) 2024 05/20/2023 BREAST CANCER SCREENING 02/12/2024 02/11/2023 COVID-19 Vaccine ( season) 2024 06/03/2023, 08/04/2021, 01/02/2021 [place] Prev entative Visit/Annual Wellness Visit 06/30/2024 COLORECTAL SCREENING 11/25/2026 11/25/2016 Colorectal Cancer Screening 11/25/2026 DTAP/TDAP/TD VACCINES (2 - T d or Tdap) 04/03/2032 04/03/2022 Medical Devices Implanted Type Area Manager Visual Device Identifier Shelf Expiration Date Model / Serial / Lot Internal Communications Intern Ligaclip Multi Med [id number] - [id number] Implanted:Qty : 1 on 06/14/2024 by Curtis Woods MD at [facility] Clip Right: Axilla [employer] MSM20 / / Agent Hemostat Surgicel 4x8in - [id number] Implanted:Qty : 1 on 06/14/2024 by Curtis Woods MD at [facility] Hemostatic Right: Breast [employer] 06/29/20282S / / [id number] Procedures Procedure Name Priority Date/Time Associated Diagnosis Comments BASIC METABOLIC PANEL Routine 07/19/2024 2:44 PM DIRECTOR OF EARLY CHILDHOOD COMPREHENSIVE METABOLIC PANEL Routine 07/19/2024 2:41 PM DIRECTOR OF EARLY CHILDHOOD CBC WITH DIFFERENTIAL Routine 07/12/2024 12:15 PM DIRECTOR OF EARLY CHILDHOOD UT INCISION & DRAINAGE COMPLEX PO WOUND INFECTION Routine 07/02/2024 10:44 PM DIRECTOR OF EARLY CHILDHOOD Seroma of breast Recurrent seroma of breast S/P right mastectomy Breast cancer metastasized to axillary lymph node, right (CMS/HCC) Malignant neoplasm of upper-outer quadrant of right breast in female, estrogen receptor positive (CMS/HCC) Left hemiparesis (CMS/HCC) CBC WITH DIFFERENTIAL Routine 07/02/2024 7:49 AM DIRECTOR OF EARLY CHILDHOOD Malignant neoplasm of upper-outer quadrant of right breast in female, estrogen receptor positive (CMS/HCC) Breast cancer metastasized to axillary lymph node, right (CMS/HCC) CANCER ANTIGEN 15-3 Routine 07/02/2024 7 :43 AM DIRECTOR OF EARLY CHILDHOOD VITAMIN B12 AND FOLATE Routine 07/02/2024 7:43 AM DIRECTOR OF EARLY CHILDHOOD Chronic anemia METHYLMALONIC ACID Routine 07/02/2024 7: 43 AM DIRECTOR OF EARLY CHILDHOOD Chronic anemia IRON, TIBC, AND PERCENT SATURATION Routine 07/02/2024 7:43 AM DIRECTOR OF EARLY CHILDHOOD Chronic anemia FERRITIN Routine 07/02/2024 7:43 AM DIRECTOR OF EARLY CHILDHOOD Chronic anemia UT PUNCTURE ASPIRATION CYST OF BREAST Routine 06/28/2024 4:51 PM DIRECTOR OF EARLY CHILDHOOD Seroma of breast PHOSPHORUS Routine 06/15/2024 3:19 AM DIRECTOR OF EARLY CHILDHOOD MAGNESIUM LEVEL Routine 06/15/2024 3:19 AM DIRECTOR OF EARLY CHILDHOOD COMPREHENSIVE METABOLIC PANEL Routine 06/15/2024 3:19 AM DIRECTOR OF EARLY CHILDHOOD CBC WITH DIFFERENTIAL Routine 06/15/2024 3:19 AM DIRECTOR OF EARLY CHILDHOOD POC ELECTROLYTES/BMP Routine 06/14/2024 2:49 PM DIRECTOR OF EARLY CHILDHOOD PATHOLOGY Pathology 06/14/2024 12:09 PM DIRECTOR OF EARLY CHILDHOOD Malignant neoplasm of upper-outer quadrant of right breast in female, estrogen receptor positive (CMS/HCC) Breast cancer metastasized to axillary lymph node, right (CMS/HCC) POC LACTIC ACID Routine 06/14/2024 10:44 AM DIRECTOR OF EARLY CHILDHOOD BLOOD GAS,(INCL. H+H, LYTES, GLUC) Routine 06/14/2024 10:44 AM DIRECTOR OF EARLY CHILDHOOD UT ANES INSERT ENDOTRACHEAL AIRWAY Routine 06/14/2024 10:15 AM DIRECTOR OF EARLY CHILDHOOD UT INTRAOP SENTINEL LYMPH NODE ID W/DYE INJECTION 06/14/2024 8:48 AM DIRECTOR OF EARLY CHILDHOOD Malignant neoplasm of upper-outer quadrant of right breast in female, estrogen receptor positive (CMS/HCC) Breast cancer metastasized to axillary lymph node, right (CMS/HCC) UT BX/EXC LYMPH NODE OPEN SUPERFICIAL 06/14/2024 8:48 AM DIRECTOR OF EARLY CHILDHOOD Malignant neoplasm of upper-outer quadrant of right breast in female, estrogen receptor positive (CMS/HCC) Breast cancer metastasized to axillary lymph node, right (CMS/HCC) UT INJ RADIOACTIVE TRACER FOR ID OF SENTINEL NODE 06/14/2024 8:48 AM DIRECTOR OF EARLY CHILDHOOD Malignant neoplasm of upper-outer quadrant of right breast in female, estrogen receptor positive (CMS/HCC) Breast cancer metastasized to axillary lymph node, right (CMS/HCC) UT BX/EXC LYMPH NODE OPEN DEEP AXILLARY NODE 06/14/2024 8:48 AM DIRECTOR OF EARLY CHILDHOOD Malignant neoplasm of upper-outer quadrant of right breast in female, estrogen receptor positive (CMS/HCC) Breast cancer metastasized to axillary lymph node, right (CMS/HCC) UT MASTECTOMY SIMPLE COMPLETE 06/14/2024 8:48 AM DIRECTOR OF EARLY CHILDHOOD Malignant neoplasm of upper-outer quadrant of right breast in female, estrogen receptor positive (CMS/HCC) Breast cancer metastasized to axillary lymph node, right (CMS/HCC) NM INJ SENTINEL NODE Routine 06/14/2024 8:42 AM DIRECTOR OF EARLY CHILDHOOD Malignant neoplasm of upper-outer quadrant of right breast in female, estrogen receptor positive (CMS/HCC) Breast cancer metastasized to axillary lymph node, right (CMS/HCC) VERIFICATION BLOOD GROUP Stat 06/14/2024 7:48 AM DIRECTOR OF EARLY CHILDHOOD Encounter for blood typing HEMOGLOBIN A1C Routine 06/14/2024 6:40 AM DIRECTOR OF EARLY CHILDHOOD BASIC METABOLIC PANEL Stat 06/14/2024 6:40 AM DIRECTOR OF EARLY CHILDHOOD CBC WITHOUT DIFFERENTIAL Stat 06/14/2024 6:40 AM DIRECTOR OF EARLY CHILDHOOD PREPARE RED BLOOD CELLS Stat 06/14/2024 6:36 AM DIRECTOR OF EARLY CHILDHOOD PREPARE RED BLOOD CELLS Stat 06/14/2024 6:36 AM DIRECTOR OF EARLY CHILDHOOD EKG 12-LEAD Routine 06/10/2024 2:45 PM DIRECTOR OF EARLY CHILDHOOD TYPE AND SCREEN Routine 06/10/2024 2:35 PM DIRECTOR OF EARLY CHILDHOOD BASIC METABOLIC PANEL Routine 05/18/2024 3:44 PM DIRECTOR OF EARLY CHILDHOOD COMPREHENSIVE METABOLIC PANEL Routine 05/18/2024 3:25 PM DIRECTOR OF EARLY CHILDHOOD CBC WITH DIFFERENTIAL Routine 05/05/2024 2:55 PM DIRECTOR OF EARLY CHILDHOOD COMPREHENSIVE METABOLIC PANEL Routine 05/03/2024 9:06 AM DIRECTOR OF EARLY CHILDHOOD BASIC METABOLIC PANEL Routine 05/03/2024 8:25 AM DIRECTOR OF EARLY CHILDHOOD MAMMO DIAG BILAT 3D ONEAL W OR WO CAD Routine 02/11/2023 12:40 PM CDT from Last 3 Months or Most Recently Relevant to Health Maintenance Results * BASIC METABOLIC PANEL (07/19/2024 2:44 PM DIRECTOR OF EARLY CHILDHOOD) Only the most recent of4 resultswithin the time period is included. Blood us Sascha Donohue MD CHEMISTRY ORDERABLES Final Resu lt * COMPREHENSIVE METABOLIC PANEL (07/19/2024 2:41 PM DIRECTOR OF EARLY CHILDHOOD) Only the most recent of4 resultswithin the time period is included. Blood us Sascha Donohue MD CHEMISTRY ORDERABLES Final Resu lt * CBC WITH DIFFERENTIAL (07/12/2024 12:15 PM DIRECTOR OF EARLY CHILDHOOD) Only the most recent of4 resultswithin the time period is included. Blood us Sascha Donohue MD HEMATOLOGY ORDERABLES Final Res ult * UT INCISION & DRAINAGE COMPLEX PO WOUND INFECTION (07/02/2024 10:44 PM DIRECTOR OF EARLY CHILDHOOD) Narrative Curtis Woods MD - 07/02/2024 10:44 PM DIRECTOR OF EARLY CHILDHOOD Curtis Woods MD ? 07/02/2024 11:01 PM Procedure Note Patient: Fredy Braun [place] / 63 y.o. / female : 1960 Procedure Performed: Incision and Drainage of postoperative seroma with drain placement Date of Service: ??07/02/2024 Provider: Curtis Woods MD MA/ASSISTANT PROFESSOR IN FAMILY STUDIES/RN: Juliana Gordon Preoperative Diagnosis: Right modified radical mastectomy with postoperative seroma Postoperative Diagnosis: ?? SAME Anesthesia: ?? - Estimated Blood Loss: none. Surgical Safety Checklist: Pre-Incision Completed: Yes Confirmation of: Patient verified Site verified (if applicable) Laterality verified Procedure verified H&P Performed Prior to Procedure Surgical Safety Checklist Pre-Incision Completed Timeout - A timeout was performed to include correct patient verified, site identified and marked if appropriate, laterality verified, and surgical safety checklist were completed. FIRE RISKS (fire risks (skin prep, oxygen) ??and ??REMEDIATION TO PREVENT FIRE (ex: skin prep was fully dried per customer service voice instructions per use) Yes Specimens Removed: ?? none Procedure Details: After informed consent was obtained the patient was placed in a comfortable position with exposure to the right chest. After sterile preparation of the skin, a small incision was made with a scalpel in the lower outer quadrant of the inferior mastectomy region over the large fluctuance. Then using a hemostat to dissect through the subcutaneous tissue into the mastectomy cavity and immediate evacuation was manually manipulated and easily drained serosanguinous fluid into a bowl that totaled 1000 cc of clear/blood tinged fluid. The entire mastectomy cavity was able to be drained until flattened without evidence of residual fluid. No evidence of hematoma or active bleeding. The fluid was discarded appropriately. A 15 Fr CRISTIANO drain was then placed through the incision into the mastectomy cavity to allow for continued drainage. The drain was secured to the skin with a 3-0 nylon suture. A sterile dressing was applied to help secure the drain and reduce the risk of contamination at the insertion site. A 6 inch stewart bandage was wrapped across her chest wall to aid in a compressive dressing. The drain was secured to the stewart wrap with a safety pin. The patient tolerated the procedure well and there was no evidence of immediate complication. Condition: ?? stable COMPLICATIONS: ?? none Post Procedure Follow Up: in 2-3 weeks for wound check and possible drain removal or sooner with any further concerns/questions. Plan: ?? She tolerated the procedure quite well and was instructed to wear a supportive bra 24/ x 7 days, use ice and tylenol/ibuprofen for pain control, drink adequate hydration with 64 oz of water daily, apply antibiotic ointment to insertion site, and shower daily with soap/water to keep areas clean/dry. Drain care teaching with daily journal of output - instructed to call when output becomes minimal. Physician Responsible for Discharge: MD Curtis Zaidi MD Breast Surgical Oncology [phone] us Curtis Woods MD PROCEDURE/MINOR SURGICAL ORDERABLES Final Result * (ABNORMAL) VITAMIN B12 AND FOLATE (07/02/2024 7:43 AM DIRECTOR OF EARLY CHILDHOOD) VITAMIN B12 >2000(H) 200 - 1100 pg/mL [facility] FOLATE, SERUM 15.0 ng/mL [facility] Comment: ? Reference Range ? Low: ? <3.4 ? Borderline: ?3.4-5.4 ? Normal: ?>5.4 FASTING:YES FASTING: YES Test Performed at: [facility] [address] ??[id number] Mat Ramos MD Blood 07/02/2024 7:43 AM DIRECTOR OF EARLY CHILDHOOD 07/02/2024 7:45 AM DIRECTOR OF EARLY CHILDHOOD us Sascha Donohue MD CHEMISTRY ORDERABLES Final Resu lt [facility] [phone] [address] * METHYLMALONIC ACID (07/02/2024 7:43 AM DIRECTOR OF EARLY CHILDHOOD) Pathologist [facility] METHYLMALONIC ACID 161 69 - 390 nmol/L [facility] Comment: Serum methylmalonic acid (MMA) levels are used to diagnose and monitor several rare inborn errors of metabolism, including methylmalonic aciduria. The enzymatic conversion of MMA to succinic acid requires vitamin B12 (adenosyl-cobalamin) as a cofactor. Serum MMA levels are also used for assessing functional vitamin B12 deficiency. Vitamin B12 is essential for neurodevelopment, particularly early in . Undiagnosed maternal vitamin B12 deficiency may be associated with adverse / outcomes, such as neural tube defects and intrauterine growth restriction. [facility] utilized Multi-Modal Decomposition (MMD) analysis to establish first and second trimester- specific MMA reference intervals in , as given below: MMA, First trimester (<13 wks gestation): 58-167 nmol/L MMA, Second trimester (13-23 wks gestation): 63-241 nmol/L This test was developed and its analytical performance characteristics have been determined by [facility]. It has not been cleared or approved by the FDA. This assay has been validated pursuant to the CLIA regulations and is used for clinical purposes. ? FASTING:YES FASTING: YES Test Performed at: [facility] [address] [place], [place] ?? Abran Inman M.D.,PhD Blood 07/02/2024 7:43 AM DIRECTOR OF EARLY CHILDHOOD 07/02/2024 7:45 AM DIRECTOR OF EARLY CHILDHOOD Sascha Donohue MD CHEMISTRY ORDERABLES Final Resu lt [facility] [phone] [facility] [address] [place] * IRON, TIBC, AND PERCENT SATURATION (07/02/2024 7:43 AM DIRECTOR OF EARLY CHILDHOOD) IRON 52 45 - 160 mcg/dL [facility] TIBC 258 250 - 450 mcg/dL (calc) [facility] IRON % SATURATION 20 16 - 45 % (calc) [facility] Comment: FASTING:YES FASTING: YES Test [facility]formed at: [facility] [address] [place] ??[phone] Mat Ramos MD Blood 07/02/2024 7:43 AM DIRECTOR OF EARLY CHILDHOOD 07/02/2024 7:45 AM DIRECTOR OF EARLY CHILDHOOD Sascha Donohue MD CHEMISTRY ORDERABLES Final Resu lt [facility] [phone] [facility] [address] * CANCER ANTIGEN 15-3 (07/02/2024 7:43 AM DIRECTOR OF EARLY CHILDHOOD) CA 15-3 13 <32 U/mL [facility] Comment: This test was performed using the Siemens (Bioniz) chemiluminescent method. Values obtained from different assay methods cannot be used interchangeably. CA 15-3 levels, regardless of value, should not be interpreted as absolute evidence of the presence or absence of disease. FASTING:YES FASTING: YES Test Performed at: [facility] ??[phone] Mat Ramos MD 07/02/2024 7:43 AM DIRECTOR OF EARLY CHILDHOOD 07/02/2024 7:45 AM DIRECTOR OF EARLY CHILDHOOD Sascha Donohue MD CHEMISTRY ORDERABLES Final Resu lt [facility] [phone] [facility] [address] * (ABNORMAL) FERRITIN (07/02/2024 7:43 AM DIRECTOR OF EARLY CHILDHOOD) FERRITIN 315(H) 16 - 288 ng/mL [facility] Comment: Test Performed at: [facility] ??[phone] Mat Ramos MD Blood 07/02/2024 7:43 AM DIRECTOR OF EARLY CHILDHOOD 07/02/2024 7:45 AM DIRECTOR OF EARLY CHILDHOOD Sascha Donohue MD CHEMISTRY ORDERABLES Final Resu lt [facility] [phone] [facility] [address] [place] [address] * UT PUNCTURE ASPIRATION CYST OF BREAST (06/28/2024 4:51 PM DIRECTOR OF EARLY CHILDHOOD) Narrative Gisela Hendrickson MD - 06/28/2024 4:51 PM DIRECTOR OF EARLY CHILDHOOD Gisela Hendrickson MD ? 06/28/2024 ??5:05 PM Procedure Note Patient: Fredy Ryder / 63 y.o. / female : 1960 Procedure Performed: Aspiration of seroma Date of Service: ??06/28/2024 Provider: MD Yu Wright NP MA/ASSISTANT PROFESSOR IN FAMILY STUDIES/RN: Sarika Callahan Preoperative Diagnosis: Large post-operative seroma Right chest, s/p mastectomy Postoperative Diagnosis: ?? SAME Anesthesia: ?? Local Estimated Blood Loss: Minimal. Surgical Safety Checklist: Pre-Incision Completed: Yes Confirmation of: Patient verified Site verified (if applicable) Laterality verified Procedure verified H&P Performed Prior to Procedure Surgical Safety Checklist Pre-Incision Completed Timeout - A timeout was performed to include correct patient verified, site identified and marked if appropriate, laterality verified, and surgical safety checklist were completed. FIRE RISKS (fire risks (skin prep, oxygen) ??and ??REMEDIATION TO PREVENT FIRE (ex: skin prep was fully dried per customer service voice instructions per use) NA Specimens Removed: ?? 2049 cc red-tinged serous fluid Procedure Details: After informed consent was obtained the patient's right chest was prepped and draped in the usual sterile fashion. ??Local anesthesia was infiltrated into a dependent area of skin on the lower mastectomy flap. ??An 18 gauge needle on a 50 cc syringe was advanced into the seroma. ??Liquid was drawn off the seroma and collected. ??This was repeated until there was no further fluid to be evacuated. ??The large seroma was decompressed after removal of over 2 L of fluid. ??The patient tolerated this procedure very well. ??After completion of the procedure she was wrapped in a compression wrap and will be followed closely in the clinic. Condition: ?? Stable COMPLICATIONS: ?? None Post Procedure Follow Up: She has a follow-up visit later this week Plan: ?? Monitor for seroma reaccumulation, she may need insertion of a percutaneous drain. Physician Responsible for Discharge: MD Gisela Wright MD Gisela Hendrickson MD PROCEDURE/MINOR SURG ICAL ORDERABLES Final Result * (ABNORMAL) PHOSPHORUS (06/15/2024 3:19 AM DIRECTOR OF EARLY CHILDHOOD) [facility] PHOSPHORUS 2.3(L) 2.5 - 4.5 mg/dL 06/15/2024 4:11 AM DIRECTOR OF EARLY CHILDHOOD [facility] Blood Venipuncture / Unknown 06/15/2024 3:19 AM DIRECTOR OF EARLY CHILDHOOD 06/15/2024 3:27 AM DIRECTOR OF EARLY CHILDHOOD Anthony Cherry DO CHEMISTRY ORDERABLES Final Res ult Performing Organization Address [facility]/ZIP Co de Phone Number [facility] CLIA# [id number] [address] [place] [address] * MAGNESIUM LEVEL (06/15/2024 3:19 AM DIRECTOR OF EARLY CHILDHOOD) [facility] MAGNESIUM 1.9 1.6 - 2.4 mg/dL 06/15/2024 4:11 AM DIRECTOR OF EARLY CHILDHOOD [facility] Blood Venipuncture / Unknown 06/15/2024 3:19 AM DIRECTOR OF EARLY CHILDHOOD 06/15/2024 3:27 AM DIRECTOR OF EARLY CHILDHOOD Anthony Cherry DO CHEMISTRY ORDERABLES Final Res ult Performing Organization Address [facility]/ZIP Co de Phone Number [facility]# [id number] [address] [place] [address] * (ABNORMAL) POC ELECTROLYTES/BMP (06/14/2024 2:49 PM DIRECTOR OF EARLY CHILDHOOD) [facility] HEMOGLOBIN POC 9.0(L) 11.8 - 14.8 g/dL 06/14/2024 2:49 PM DIRECTOR OF EARLY CHILDHOOD [facility] HEMATOCRIT POC 27(L) 36 - 44 % 06/14/2024 2:49 PM DIRECTOR OF EARLY CHILDHOOD [facility] Comment:Estimated Value COMMENT, SANJUANA POC Responsible Clinical Caregiver notified 06/14/2024 2:49 PM DIRECTOR OF EARLY CHILDHOOD [facility] Blood 06/14/2024 2:49 PM DIRECTOR OF EARLY CHILDHOOD 06/14/2024 2:50 PM DIRECTOR OF EARLY CHILDHOOD us Curtis Woods MD POINT OF CARE TESTING Fi nal Result [facility] CLIA# [id number] [address] [place] [address] * PATHOLOGY (06/14/2024 12:09 PM DIRECTOR OF EARLY CHILDHOOD) CASE REPORT Surgical Pathology Report ? Case: [id number] ? Authorizing Provider: ??uCrtis Woods MD ??Collected: ? 06/14/2024 12:09 PM ? Ordering Location: ? [facility] ?Received: ?06/14/2024 03:23 PM ? Operating Room ? Pathologist: ? Angella Perkins MD ? Specimens: ?? A) - Breast, right, Right breast; short stitch superior, long stitch lateral; RIGHT ? AXILLARY CONTENTS ? B) - Axilla, right, RIGHT AXILLARY LEVEL 3 ??LYMPH NODE ? 4 7:03 AM [facility] [employer] [facility] FINAL DIAGNOSIS Breast, right, total mastectomy: - Invasive poorly differentiated carcinoma (see diagnosis comment) - 3.5 x 3.5 x 2.0 cm, upper outer quadrant, ypT2 pN1a (See tumor staging synoptic form) - Toledo score 3+3+3= 9 (pleomorphism= 3, tubular formation= 3, mitotic activity= 3) - Negative margins - Biomarker status: ER=5/8 (positive): UT=0/8 (negative); HER2 1+ (negative) (performed on previous outside biopsy [id number]) Lymph node, right axillary level 3, excision: - 1 lymph node with metastatic carcinoma (06/30) Lymph nodes, right axillary contents, dissection: - 1 of 16 lymph nodes with metastatic carcinoma (07/15) 4 7:03 AM [facility] [employer] [facility] NOSIS COMMENT The tumor appears similar to the previous biopsy ([id number]) diagnosed as invasive poorly differentiated carcinoma, best classified as breast primary. The previous immunostain pattern showed positivity for MCK and CK7 as well as p63 and CK5. There was diffuse weak ER positive staining and limited p40 positivity. GATA3, GCDFP, mammaglobin, TTF-1, Napsin A, PAX8 and synaptophysin were all negative. Thus, the findings are compatible breast primary if other sites of metastasis have been excluded. This case has been staged as a breast primary. 4 7:03 AM [facility] GROSS DESCRIPTION The specimens are received in three containers each labeled Fredy Ryder . Received in the first container additionally labeled right breast short stitch superior long stitch lateral is a 233 g right mastectomy measuring 17.9 cm from medial to lateral, 11.3 cm from superior to inferior, and 5 cm from anterior to posterior. The specimen is received with a short suture that designates superior and a long suture that designates lateral. The anterior aspect is partially surfaced by a 16.5 x 9 cm portion of pink-blake skin containing a 1.5 x 1.3 x 0.4 cm everted nipple. The specimen is inked as follows: Anterior-blue, posterior black, and lateral-yellow. The specimen is sectioned from medial to lateral to show areas of dense fibrous tissue arising from the central breast, branching to each quadrant. Within an area of dense fibrous tissue is a pink-maurer, firm, ill-defined mass measuring 3.5 cm from medial to lateral, 3.5 cm from superior to inferior, and 2 cm from anterior to posterior located within the lower outer to central breast. The mass lies 0.6 cm from the posterior margin and greater than 2 cm from all additional margins. No additional masses identified. Production Support Manager sections are submitted in cassettes labeled A1 through A5-physician relations representative sections of mass, submitted sequentially from lateral to medial (3: With closest posterior margin; 4: With skin surface); A6-closest posterior margin to mass; A7-upper outer quadrant; A8-lower outer quadrant; A9-lower outer quadrant; Q66-fnjrl inner quadrant; J03-dtfjkc. Received in the second container additionally labeled right axillary level 3 lymph node is a single pink-maurer lymph node with attached adipose tissue measuring 0.9 x 0.9 x 0.4 cm. The specimen is sectioned and submitted entirely in cassette labeled B1. Received in the third container additionally labeled right axillary contents are multiple irregular fragments of blake-yellow, lobulated adipose tissue measuring 7.3 x 4.6 x 2 cm in aggregate. The adipose tissue contains multiple lymph nodes ranging from 0.4 to 2.8 cm in greatest dimension. The largest lymph node measures 2.8 x 2.5 x 1.5 cm and is sectioned to show a blake-white, grossly positive cut surface. The lymph nodes are submitted entirely in cassettes labeled A12-6 lymph nodes, intact; A13-4 lymph nodes, intact; A14-3 lymph nodes, intact; Y28-M89-3 lymph node in each cassette, bisected; A17 through A66-pqehqsy grossly positive lymph node, submitted entirely. SMB 4 7:03 AM [facility] MICROSCOPIC DESCRIPTION The slides are labeled [id number] and Fredy Ryder. Sections from the right breast total mastectomy show a poorly differentiated carcinoma composed of somewhat spindled sheets of epithelioid cells with a moderate to high N:C ratio, scant to moderate amount of maurer-pink vacuolated cytoplasm, identifiable mitoses and single cell necrosis. No definitive gland formation is identified. The tumor is located 6 mm from the closest posterior margin. Immunostains are performed on block A2 including p63, SMMS, and CK5/6. Immunostains are performed on block A3 including CD31 and D2-40. CK7 is performed on block A15 and pancytokeratin is performed on blocks A14 and A16. The carcinoma is positive for pancytokeratin. The tumor has focal positivity for CK5/6. P63 and SMMS do not highlight an in situ component. Rare small foci of small vessel lymph-vascular invasion are identified D2-40 and SMMS. CD31 does not definitively highlight vascular invasion. The previous biopsy site is identified in block A4 with surrounding multinucleated giant cells and hemosiderin. Adjacent to the biopsy site is fibrosis, and hemosiderin. Some areas of necrosis and histiocytes identified adjacent to and within the viable tumor. Sections of the other quadrants of the breast show benign breast parenchyma with fibrosis, fat necrosis and atrophic changes. Section from the right inner quadrant shows a fibroadenoma with dystrophic stromal calcification. Section A11 shows unremarkable skin. Sections of the axillary node dissection show a total of 1 of 16 (1/16) lymph nodes with metastatic carcinoma. The metastatic carcinoma nearly completely completely replaces the lymph node and there is focal extranodal extension of tumor. The remaining lymph nodes are without metastatic carcinoma but have atrophic follicles. Sections from the right axillary level 3 lymph node show a lymph node which is mainly replaced by metastatic carcinoma (06/30). 4 7:03 AM [facility] OPERATIVE PROCEDURE 1: BREAST MASTECTOMY SIMPLE 2: SENTINEL LYMPH NODE BIOPSY MAPPING 4 7:03 AM [facility] CLINICAL INFORMATION Malignant neoplasm of upper-outer quadrant of right breast in female, estrogen receptor positive [C50.411, Z17.0] Breast cancer metastasized to axillary lymph node, right [C50.911, C77.3] C50.411, Z17.0-Malignant neoplasm of upper-outer quadrant of right breast in female, estrogen receptor positive C50.911, C77.3-Breast cancer metastasized to axillary lymph node, right 4 7:03 AM [facility] SYNOPTIC REPORT INVASIVE CARCINOMA OF THE BREAST: Resection INVASIVE CARCINOMA OF THE BREAST: RESECTION - All Specimens 8th Edition - Protocol posted: 12/17/2023 SPECIMEN ?? Procedure: ?Total mastectomy ?? Specimen Laterality: ?Right TUMOR ?? Tumor Site: ?Upper outer quadrant ?? Histologic Type: ?Invasive poorly differentiated carcinoma ?? Histologic Grade (Marcos Histologic Score): ? Glandular (Acinar) / Tubular Differentiation: ?Score 3 ? Nuclear Pleomorphism: ?Score 3 ? Mitotic Rate: ?Score 3 ? Overall Grade: ?Grade 3 (scores of 8 or 9) ?? Tumor Size: ?Greatest dimension of largest invasive focus (Millimeters): 3 5 mm ? Additional Dimension (Millimeters): ?3.5 mm ? Additional Dimension (Millimeters): ?2 mm ?? Tumor Focality: ?Single focus of invasive carcinoma ?? Ductal Carcinoma In Situ (DCIS): ?Not identified ?? Lobular Carcinoma In Situ (LCIS): ?Not identified ?? Lymphatic and / or Vascular Invasion: ?Present ? : ?Extensive ?? Dermal Lymphatic and / or Vascular Invasion: ?Not identified ?? Microcalcifications: ?Present in non-neoplastic tissue ?? Treatment Effect in the Breast: ?Probable or definite response to presurgical therapy in the invasive carcinoma ?? Treatment Effect in the Lymph Nodes: ?No definite response to presurgical therapy in metastatic carcinoma ?? Residual Cancer Midway (RCB) Parameters: ? Greatest Dimension of Primary Tumor Bed Area (Millimeters): ?36 mm ? Second Greatest Dimension of Primary Tumor Bed Area (Millimeters): ?35 mm ? Percentage of Overall Cancer Cellularity: ?25 % ? Percentage of Cancer that is In Situ Disease: ?0 % ? Number of Positive Lymph Nodes: ?2 ? Diameter of Largest [place] Metastasis (Millimeters): ?28 mm ? Residual Cancer Midway: ?3.962 ? Residual Cancer Midway Class: ?RCB-III MARGINS ?? Margin Status for Invasive Carcinoma: ?All margins negative for invasive carcinoma ? Distance from Invasive Carcinoma to Closest Margin: ?6 mm ? Closest Margin(s) to Invasive Carcinoma: ?Posterior ? Distance from Invasive Carcinoma to Anterior Margin: ?Greater than: 10 mm ? Distance from Invasive Carcinoma to Posterior Margin: ?6 mm ? Distance from Invasive Carcinoma to Superior Margin: ?Greater than: 10 mm ? Distance from Invasive Carcinoma to Inferior Margin: ?Greater than: 10 mm ? Distance from Invasive Carcinoma to Medial Margin: ?Greater than: 10 mm ? Distance from Invasive Carcinoma to Lateral Margin: ?Greater than: 10 mm REGIONAL LYMPH NODES ?? Regional Lymph Node Status: ? : ?Tumor present in regional lymph node(s) ? Number of Lymph Nodes with Macrometastases: ?2 ? Number of Lymph Nodes with Micrometastases: ?0 ? Number of Lymph Nodes with Isolated Tumor Cells: ?0 ? Size of Largest [place] Metastatic Deposit: ?28 mm ? Extranodal Extension: ?Present, 2 mm or less ? Total Number of Lymph Nodes Examined (sentinel and non-sentinel): ?17 ? Number of [place] Nodes Examined: ?1 pTNM CLASSIFICATION (AJCC 8th Edition) ?? Reporting of pT, pN, and (when applicable) pM categories is based on information available to the pathologist at the time the report is issued. As per the AJCC (Chapter 1, 8th Ed.) it is the managing physician's responsibility to establish the final pathologic stage based upon all pertinent information, including but potentially not limited to this pathology report. ?? Modified Classification: ?y ?? pT Category: ?pT2 ?? pN Category: ?pN1a ?? N Suffix: ?(sn) SPECIAL STUDIES ?? Estrogen Receptor (ER) Status: ?Positive (greater than 10% of cells demonstrate nuclear positivity) ? Percentage of Cells with Nuclear Positivity: ?41-50% ?? Progesterone Receptor (PgR) Status: ?Negative ?? HER2 (by immunohistochemistry): ?Negative (Score 1+) ?? Ki-67 Percentage of Positive Nuclei: ?50 % ?? Testing Performed on /[id number] Comment(s): ?Testing performed on an outside hospital biopsy 4 7:03 AM DIRECTOR OF EARLY CHILDHOOD [facility] [employer] [facility] COMMENT Special stain, immunohistochemical, and/or in situ hybridization results are interpreted with controls that demonstrate appropriate staining reactions. Note on use of immunohistochemistry reagents and in situ hybridization probes: These tests were developed and their performance characteristics determined by [facility], Department of Laboratory Medicine. It has not been cleared or approved by the U.S. Food and Drug Administration. The FDA has determined that such clearance or approval is not necessary. The test is used for clinical purposes. It should not be regarded as investigational or for research. This laboratory is certified to perform high complexity testing. Frozen section/operating room consultation, gross examination and dissection, and case sign out may have been performed in part or completely in the following laboratories: [facility], CLIA #[id number] [address] [place] [address] [facility], CLIA #[id number] [address] [place] [address] [facility], CLIA #[id number] [address] , [place] [address] This report was created with the [employer] voice-activated dictation system. Inherent to this system is the possibility of syntax, grammar, punctuation and other errors that could impact the interpretation of the report. If there are interpretative questions about aspects of this report, please contact the performing pathologist. 7:03 AM [facility] Tissue RIGHT BREAST STRUCTURE / Unknown Collection / Unknown 06/14/2024 12:09 PM DIRECTOR OF EARLY CHILDHOOD 06/14/2024 3:23 PM DIRECTOR OF EARLY CHILDHOOD Tissue specimen (specimen) (Axilla, right) Collection / Unknown 06/14/2024 12:51 PM DIRECTOR OF EARLY CHILDHOOD 06/14/2024 3:23 PM DIRECTOR OF EARLY CHILDHOOD Curtis Woods MD PATHOLOGY/CYTOLOGY ORDER MILLIE Final Result [id number] [address] [place] [address] * POC LACTIC ACID (06/14/2024 10:44 AM DIRECTOR OF EARLY CHILDHOOD) LACTIC ACID POC 1.2 <=2.0 mmol/L 06/14/2024 10:44 AM [facility] SPECIMEN SOURCE, GASES POC Arterial 06/14/2024 10:44 AM [facility] COMMENT, GASES POC Responsible Clinical Caregiver notified 06/14/2024 10:44 AM [facility] Blood 06/14/2024 10:4 4 AM DIRECTOR OF EARLY CHILDHOOD 06/14/2024 10:45 AM DIRECTOR OF EARLY CHILDHOOD Curtis Woods MD POINT OF CARE TESTING Fi nal Result [facility] [employer] [facility]# [id number] [address] [place] [address] * (ABNORMAL) BLOOD GAS,(INCL. H+H, LYTES, GLUC) (06/14/2024 10:44 AM DIRECTOR OF EARLY CHILDHOOD) PH BLOOD POC 7.43 7.35 - 7.45 06/14/2024 10:44 AM [facility] [employer] [facility] PCO2 POC 43 35 - 48 mm Hg 06/14/2024 10:44 AM [facility] [employer] [facility] PO2 POC 238(H) 83 - 108 mm Hg 06/14/2024 10:44 AM [facility] [employer] [facility] TCO2 (CALC) POC 30(H) 19 - 24 mmol/L 06/14/2024 10:44 AM [facility] [employer] [facility] HCO3 (CALC) POC 29(H) 22 - 26 mmol/L 06/14/2024 10:44 AM [facility] [employer] [facility] O2 SATURATION POC 99(H) 94 - 98 % 06/14/2024 10:44 AM [facility] [employer] [facility] BASE EXCESS POC 4(H) -2 - 3 mmol/L 06/14/2024 10:44 AM [facility] [employer] [facility] HEMOGLOBIN POC 7.0(L) 11.8 - 14.8 g/dL 06/14/2024 10:44 AM [facility] [employer] [facility] HEMATOCRIT POC 21(L) 36 - 44 % 06/14/2024 10:44 AM [facility] [employer] [facility] Comment:Estimated Value GLUCOSE POC 90 74 - 99 mg/dL 06/14/2024 10:44 AM [facility] [employer] [facility] SODIUM POC 133(L) 136 - 145 mmol/L 06/14/2024 10:44 AM [facility] [employer] [facility] POTASSIUM POC 4.3 3.5 - 5.0 mmol/L 06/14/2024 10:44 AM [facility] CHLORIDE POC 105 98 - 107 mmol/L 06/14/2024 10:44 AM [facility] CALCIUM IONIZED POC 5.5(H) 4.7 - 5.1 mg/dL 06/14/2024 10:44 AM [facility] PH TEMP CORRECT 7.43 7.35 - 7.45 06/14/2024 10:44 AM [facility] PCO2 TEMP CORRECT 43 35 - 48 mm Hg 06/14/2024 10:44 AM [facility] PO2 TEMP CORRECT 238(H) 83 - 108 mm Hg 06/14/2024 10:44 AM [facility] SPECIMEN SOURCE, GASES POC Arterial 06/14/2024 10:44 AM [facility] PATIENT'S TEMPERATURE POC 37.0 degrees 06/14/2024 10:44 AM [facility] COMMENT, GASES POC Responsible Clinical Caregiver notified 06/14/2024 10:44 AM [facility] Blood, arterial 06/14/2024 1 0:44 AM DIRECTOR OF EARLY CHILDHOOD 06/14/2024 10:45 AM [facility] Curtis Woods MD ABG ORDERABLES Final Re sult [facility]# [id number] [address] [place] [place] [address] * [place] ANES INSERT ENDOTRACHEAL AIRWAY (06/14/2024 10:15 AM DIRECTOR OF EARLY CHILDHOOD) Narrative Rose Marie Chavarria AA-C - 06/14/2024 10:15 AM DIRECTOR OF EARLY CHILDHOOD Rose Marie Chavarria AA-C ? 06/14/2024 11:00 AM Airway Date/Time: 06/14/2024 10:15 AM Location: OR Plan: elective intubation Patient Identity Confirmed by: ??Verbally with patient and armband Airway: not difficult Staffing Performed: JACKET CHANGER/CAA Authorized by: Lisa Gold MD ?? Performed by: Chavarria, Rose Marie, AA-C Indications and Patient Condition: ??Indications for Airway Management: ??Anesthesia and airway protection ??Sedation Level: general anesthesia ??Preoxygenated: yes ?Patient Position: ??Sniffing ??Mask Difficulty Assessment: ??0 - not attempted ??Plan to extubate at end of case: Yes ?? Final Airway Details: ??Final Airway Type: ??Endotracheal airway ??ETT ??Cuffed: Yes ?Technique Used for Successful ETT Placement: ??Direct laryngoscopy ??Devices/Methods Used in Placement: ??Intubating stylet ??Blade Type: curved blade ??Blade Size: ??3 ??Insertion Site: ??Oral ??ETT Size (mm): ??6.0 ??Measured from: ??Lips ??ETT to Lips (cm): ??20 ??Tube secured with: ??Tape ??Placement Verified by: auscultation and end tidal CO2 ?Cormack-Lehane Classification: ??Grade I - full view of glottis ??Number of Attempts at Approach: ??1 Additional Procedure Information: atraumatic and dentition unchanged us Lisa Gold MD PROCEDURE/MINOR SURGICAL ORDERA BLES Final Result * NM INJ SENTINEL NODE (06/14/2024 8:42 AM DIRECTOR OF EARLY CHILDHOOD) Anatomical Region Laterality Modality Nuclear Medicine 06/14/2024 8:43 AM DIRECTOR OF EARLY CHILDHOOD Impressions 06/14/2024 8:49 AM DIRECTOR OF EARLY CHILDHOOD IMPRESSION: ??Lymphoseek injected for sentinel lymph node localization. No images acquired. Dictated by Dr. Lion Whittaker MD DICTATION LOCATION: 1 Narrative 06/14/2024 8:49 AM DIRECTOR OF EARLY CHILDHOOD SENTINEL LYMPH NODE INJECTION ONLY DATE: 06/14/2024 8:42 AM HISTORY: Invasive poorly differentiated carcinoma involving the upper outer quadrant of the right breast. PROCEDURE: Skin preparation with Chloraprep wipes. Technetium Lymphoseek was injected as 2 intradermal injections around the periareolar region. ?? RADIOPHARMACEUTICAL: 0.5 mCi 99m-Technetium Lymphoseek FINDINGS: ??Patient injected however no image was acquired. INCIDENTAL FINDINGS: ??None. Procedure Note Lion Whittaker MD - 06/14/2024 SENTINEL LYMPH NODE INJECTION ONLY DATE: 06/14/2024 8:42 AM HISTORY: Invasive poorly differentiated carcinoma involving the upper outer quadrant of the right breast. PROCEDURE: Skin preparation with Chloraprep wipes. Technetium Lymphoseek was injected as 2 intradermal injections around the periareolar region. RADIOPHARMACEUTICAL: 0.5 mCi 99m-Technetium Lymphoseek FINDINGS: Patient injected however no image was acquired. INCIDENTAL FINDINGS: None. IMPRESSION: Lymphoseek injected for sentinel lymph node localization. No images acquired. Dictated by Dr. Lion Whittaker MD DICTATION LOCATION: 1 Curtis Woods MD NM ORDERABLES Final Re sult * VERIFICATION BLOOD GROUP (06/14/2024 7:48 AM DIRECTOR OF EARLY CHILDHOOD) ABO GROUP A 06/14/2024 8:25 AM DIRECTOR OF EARLY CHILDHOOD [facility] -- [facility] RH (D) TYPE Positive 06/14/2024 8:25 AM DIRECTOR OF EARLY CHILDHOOD [facility] SERVICES -- [facility] Blood Venipuncture / Unknown 06/14/2024 7:48 AM DIRECTOR OF EARLY CHILDHOOD 06/14/2024 7:48 AM DIRECTOR OF EARLY CHILDHOOD Lilo Stephenson MD BLOOD BANK ORDERABLES Final Result [facility] [employer] [facility]# [id number] 5 [facility] [place] [address] * (ABNORMAL) CBC WITHOUT DIFFERENTIAL (06/14/2024 6:40 AM DIRECTOR OF EARLY CHILDHOOD) WBC 3.6(L) 4.0 - 9.8 K/uL 06/14/2024 8:04 AM DIRECTOR OF EARLY CHILDHOOD [facility] LABORAT[facility] SERVICES [facility] RBC 2.05(L) 3.90 - 4.90 M/uL 06/14/2024 8:04 AM DIRECTOR OF EARLY CHILDHOOD [facility] HEMOGLOBIN 7.4(L) 11.8 - 14.8 g/dL 06/14/2024 8:04 AM DIRECTOR OF EARLY CHILDHOOD [facility]ORAT[facility] SERVICES - . [facility] HEMATOCRIT 23.9(L) 35.5 - 44.0 % 06/14/2024 8:04 AM [facility] [employer] [facility] MCV 116.6(H) 82.0 - 99.0 fL 06/14/2024 8:04 AM [facility] [employer] [facility] MCH 36.1(H) 27.2 - 32.6 pg 06/14/2024 8:04 AM [facility] [employer] [facility] MCHC 31.0(L) 31.5 - 35.5 g/dL 06/14/2024 8:04 AM [facility] [employer] [facility] PLATELETS 143 140 - 350 K/uL 06/14/2024 8:04 AM [facility] [employer] [facility] MPV 10.9 9.3 - 12.4 fL 06/14/2024 8:04 AM [facility] [employer] [facility] RDW 17.2(H) 11.5 - 14.5 % 06/14/2024 8:04 AM [facility] [employer] [facility] RDW-STDEV 72.8(H) 37.1 - 48.7 fL 06/14/2024 8:04 AM [facility] [employer] [facility] Blood Venipuncture / Unknown 06/14/2024 6:40 AM DIRECTOR OF EARLY CHILDHOOD 06/14/2024 7:51 AM DIRECTOR OF EARLY CHILDHOOD us Lisa Gold MD HEMATOLOGY ORDERABLES Final Res ult [facility] [employer] [facility]# [id number] [address] [place] [address] * HEMOGLOBIN A1C (06/14/2024 6:40 AM DIRECTOR OF EARLY CHILDHOOD) HEMOGLOBIN A1C 4.8 <5.7 % 06/14/2024 8:23 PM [facility] [employer] [facility] EST. AVG GLUCOSE, A1C 91 mg/dL 06/14/2024 8:23 PM [facility] [employer] [facility] Blood Venipuncture / Unknown 06/14/2024 6:40 AM DIRECTOR OF EARLY CHILDHOOD 06/14/2024 7:51 AM DIRECTOR OF EARLY CHILDHOOD Narrative [facility] LABORATORY SERVICES - [facility] - 06/14/2024 8:23 PM DIRECTOR OF EARLY CHILDHOOD HGB A1C INTERPRETATION NORMAL: ? <5.7% PRE-DIABETES: 5.7 - 6.4% DIABETES: ? 6.5% OR GREATER us Anthony Cherry DO CHEMISTRY ORDERABLES Final Res ult [facility] LABORATORY SERVICES - [facility] CLME# [id number] [address] [place] [address] * PREPARE RED BLOOD CELLS (06/14/2024 6:36 AM DIRECTOR OF EARLY CHILDHOOD) Only the most recent of2 resultswithin the time period is included. Pathologist [facility] COMPONENT TYPE [id number] [facility] LABORATORY SERVICES -- [facility] COMPONENT IDENTIFICATION [id number] [facility] LABORATORY SERVICES -- [facility] ABO A [facility] SERVICES [facility] RH POS [facility] LABORATORY SERVICES -- [facility] CROSSMATCH Compatible [facility] LABORATORY SERVICES -- [facility] COMPONENT STATUS Returned [facility] LABORATORY SERVICES -- [facility] COMPONENT EXPIRATION DATE/TIME [facility] LABORATORY SERVICES -- [facility] COMPONENT CODING SYSTEM 6[address] [facility] LABORATORY SERVICES -- .[facility] VOLUME, BLOOD PRODUCT 350 [facility] LABORATORY SERVICES -- .[facility] Other, specify 06/14/2024 6: 36 AM DIRECTOR OF EARLY CHILDHOOD us Lisa Gold MD LAB TRANSFUSION ORDERABLES Edit ed Result - Final [facility] [employer] SERVICES -- [facility] CLIA# [id number] [address] [place] [address] * EKG 12-LEAD (06/10/2024 2:45 PM DIRECTOR OF EARLY CHILDHOOD) 06/10/2024 2:45 PM DIRECTOR OF EARLY CHILDHOOD Narrative INTERFACE SYSTEM - 06/10/2024 4:53 PM DIRECTOR OF EARLY CHILDHOOD ? [facility] ? [address], [place] [address] ? Test Date: ?2024-06-10 Pat Name: ? FREDY ALEKSEY ? Department: ?? 100 ?Room: ? Gender: ? Female ? Licensed Professional Counselor: ?? Reesan : ?1960 ? Requested By: CURTIS WOODS PAOLO Order Number: [id number] ? Reading MD: ?? Alex Maya ? Measurements Intervals ?[place] ? Rate: ? 61 ? P: ?83 UT: ? 162 ?QRS: ?75 QRSD: ? 94 ? T: ?77 QT: ? 415 ? QTc: ?420 ? Interpretive Statements SINUS RHYTHM Electronically Signed On 06-10-2024 16:53:11 DIRECTOR OF EARLY CHILDHOOD by Alex Maya Procedure Note Alex Maya MD - 06/10/2024 [facility] [address] [place] [address] Test Date: 2024-06-10 Pat Name: FREDY RYDER Department: 100 Room: Gender: Female Licensed Professional Counselor: Sony : 1960 Requested By: CURTIS BOONE Order Number: [id number] Reading MD: Alex Maya Measurements Intervals [place] Rate: 61 P: 83 UT: 162 QRS: 75 QRSD: 94 T: 77 QT: 415 QTc: 420 Interpretive Statements SINUS RHYTHM Electronically Signed On 06-10-2024 16:53:11 DIRECTOR OF EARLY CHILDHOOD by Alex Maya Monique Cam [facility] ECG ORDERABLES Final Result Performing Organization Address City/State/[facility] Co de Phone Number INTERFACE SYSTEM Refer to clinic/hospital department * TYPE AND SCREEN (06/10/2024 2:35 PM DIRECTOR OF EARLY CHILDHOOD) ABO GROUP A 06/10/2024 4:49 PM DIRECTOR OF EARLY CHILDHOOD [facility] LABORATORY SERVICES -- [facility] RH (D) TYPE Positive 06/10/2024 4:49 PM DIRECTOR OF EARLY CHILDHOOD [facility] LABORATORY SERVICES -- [facility] ANTIBODY SCREEN Negative 06/10/2024 4:49 PM DIRECTOR OF EARLY CHILDHOOD [facility] LABORATORY SERVICES -- [facility] Blood Venipuncture / Unknown 06/10/2024 2:35 PM DIRECTOR OF EARLY CHILDHOOD 06/10/2024 3:44 PM DIRECTOR OF EARLY CHILDHOOD us Monique Cam FORESTRY CONTRACTOR BLOOD BANK ORDERABLES Edited Re sult - Final [facility] KRIS# [id number] [address] [place] [address] * MAMMO 3D ONEAL DIAGNOSTIC BILAT W OR WO CAD (02/11/2023 12:40 PM CDT) Anatomical Region Laterality Modality Breast Bilateral Other us Abstract Provider MAMMO ORDERABLES Edited Result - Final from Last 3 Months or Most Recently Relevant to Health Maintenance Insurance MEDICAID [place]ICAID [place] Advance Directives For more information, please contact: [phone] * Full Code (Latest Code Status on File) Date Activated Date Inactivated Comments 06/14/2024 3:40 PM 06/15/2024 3:17 PM * Full Code Date Activated Date Inactivated Comments 06/14/2024 7:46 AM 06/14/2024 3:40 PM Care Teams Lube Man Relationship Specialty Start Date End Date Nayely Singh MD [address] [place] [address] PCP - General Family Practice 12/10/23
--- OUTSIDE RECORDS SUMMARY | 2024-07-27 13:27 | XMS_ITS | Encounter Summary ---
Author Organization [facility] [employer] Address [address] [place] [address] Care Team Providers Care Assistant Grocery Name Role Phone Nayely Singh MD Primary Care Provider Encounter Details Date Type Department Care Team (Late st Contact Info) Description 07/26/2024 Orders Only [facility] Oncology and Hematology - [place] [address] [facility] [address] [place] [address] Sascha Donohue MD [address] [facility] [address] [place] [address] Malignant neoplasm of lower-outer quadrant of right breast of female, estrogen receptor positive (CMS/HCC) Social History Tobacco Use Types Packs/Day Years Used Date Smoking Tobacco: Former Cigarettes 1 21 1 979 - 2000 Smokeless Tobacco: Never Alcohol Use Standard Drinks/Week Comments Never 0 [...] on file Legal Sex Female 5:41 AM FROTHING MACHINE OPERATOR Gender Identity Not on file Sexual Orientation Not on file documented as of this encounter Plan of Treatment Upcoming Encounters Date Type Department Care Team (Late st Contact Info) Description 08/03/2024 4:30 PM FROTHING MACHINE OPERATOR Telephone Check Up [facility] Oncology and Hematology - [place] [address] [facility] [address] [place] [address] Sascha Donohue MD [address] [facility] [address] [place] [address] 08/06/2024 9:45 AM FROTHING MACHINE OPERATOR Office Visit [facility] Breast Surgery [address] [place] [address] [place] [address] [place] [address] documented as of this encounter Visit Diagnoses Diagnosis Malignant neoplasm of lower-outer quadrant of right breast of female, estrogen receptor positive (CMS/HCC) documented in this encounter Care Teams Assistant Grocery Relationship Specialty Start Date End Date Nayely Singh MD [address] [place] [address] PCP - General Family Practice 12/10/23 documented as of this encounter
--- OUTSIDE RECORDS SUMMARY | 2024-07-27 13:27 | XMS_ITS | Referral Summary ---
Author Organization [facility] Address [address] [place] [address] Care Team Providers Care Ingot Car Operator Name Role Phone Stephanie Singh MD Primary Care Provider [phone] Allergies Active Allergy Reactions Criticality Noted Date [...] 04/24/2023 Assessment & Plan (05/17/2023 2:11 PM RETENTION SPECIALIST): 04/24 advanced to regular diet yesterday, low [...] 04/22/2023 Assessment & Plan (05/17/2023 2:12 PM RETENTION SPECIALIST): 04/22 Reportedly patient presented to OSH from home, baseline function is relatively independent with spousal support and walker vs cane for mobility, case management investigating, anticipate some type of placement when medically stable, PT/OT ordered 04/23 PT recs for inpatient rehab, manager culinary notified, ADD 04/25 04/24 patient agreeable to short term IPR placement in [place], [place] area -- case management aware, MAKAYLA gomez denied patient for medical reasons, [facility] evaluating, ADD 04/25 --- additional discussions [...] medical conditions F/u prior vascular surgeon for half-way evaluation of 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 F/u [facility] clinic for wound check and staple removal Acute pain 04/22/2023 Assessment & Plan (05/17/2023 2:13 PM RETENTION SPECIALIST): 04/22 pain controlled with lidoderm patches and dilaudid IV PRN, passed HOT PRESS OPERATOR eval today, liberalize to oral multimodal regimen [...] 04/22/2023 Assessment & Plan (05/05/2023 10:42 AM RETENTION SPECIALIST): Patient reports symptoms controlled with CBD gummies - low threshold for marinol - zofran, compazine PRN 04/23 start marinol scheduled 04/24 symptoms controlled 04/27-present: No complaints of nausea. 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 SBO r/t parastomal hernia incarceration. --- transferred to [facility] for higher level of care 04/19 [...] inpatient due to risk for evisceration 05/05-05/06 [id number] AFVSS, wbc 4 from 4, abx: none, [...] ischemic changes SBO (small bowel obstruction) ([facility]) 04/18/20 23 Abscess of right buttock 02/28/2021 Ulcer of right lower extremi ty, limited to breakdown of skin 11/17/2018 Ulcer of left lower extremity, limited to breakd own of skin 11/17/2018 Venous insufficiency of leg 12/12/2016 Deep venous thrombosis ([facility]) 10/19/2016 Assessment & Plan (05/16/2023 10:06 AM RETENTION SPECIALIST): DVT (2012, on Xarelto, IVC filter) -Last [...] Dyslipidemia 10/19/2016 Peripheral arterial occlusive disease ([facility]) 10/19/2016 Cerebrovascular accident 09/24/2016 Assessment & Plan [...] on discharge, f/u with PCP Problem 02/04/2013 Social History Tobacco Use Types Packs/Day Years [...] on file Legal Sex Female 4:26 AM RETENTION SPECIALIST Gender Identity Not on file Sexual Orientation Not on file Last Filed Vital Signs Vital Sign Reading Time Taken Comments Blood Pressure 123/61 06/04/2023 1:00 PM RETENTION SPECIALIST Pulse 92 06/04/2023 1:00 PM RETENTION SPECIALIST Temperature 36.6 ??C (97.9 ??F) 06/04/2023 1:00 PM CS T Respiratory Rate 18 05/18/2023 11:39 AM RETENTION SPECIALIST Oxygen Saturation 96% 06/04/2023 1:00 PM RETENTION SPECIALIST Inhaled Oxygen Concentration - - Weight 67.6 kg (149 lb) 06/04/2023 1:00 PM RETENTION SPECIALIST Height 175.3 cm (5' 9 ) 06/04/2023 1:00 PM RETENTION SPECIALIST Body Mass Index 22 06/04/2023 1:00 PM RETENTION SPECIALIST Plan of Treatment Not on file Medical Devices Implanted Type Area Senior Sales Assistant Device Identifier Shelf Expiration Date Model / Serial / Lot [employer] Nancy Seprafilm 6x5in Barrier [employer]hesion Sterile Disposable Latex Free [id number] - [id number] Implanted:Qty : 1 on 04/19/2023 by Abran Cardenas DO at [facility] Other - see comments N/A: Abdomen [employer] Nancy [id number] 04/25/2024 [id number] / / [id number] [employer] Seprafilm 6x5in Barrier Adhesion Sterile Disposable Latex Free [id number] - [id number] Implanted:Qty : 1 on 04/19/2023 by Abran Cardenas DO at [facility] Other - see comments N/A: Abdomen [employer] Nancy [id number] 03/27/2024 [id number] / / [id number] Procedures Procedure Name Priority Date/Time Associated Diagnosis Comments OCCULT BLOOD, FECAL (FIT) Routine 08/26/2013 6:00 AM RETENTION SPECIALIST FLEXIBLE SIGMOIDOSCOPY REPORT 07/17/2012 from Last 3 Months or Most Recently Relevant to Health Maintenance Results * Occult blood, fecal non neoplasm screening (08/26/2013 6:00 AM RETENTION SPECIALIST) Stool Occult Blood NEGATIVE NEGATIVE 08/26/2013 8:07 AM RETENTION SPECIALIST [employer] HISTORICAL RESULTS 08/26/2013 6:00 AM RETENTION SPECIALIST 08/26/2013 7:31 AM RETENTION SPECIALIST Narrative [employer] HISTORICAL RESULTS - 08/26/2013 8:07 AM RETENTION SPECIALIST Collected By CJ ?? 193 us Stephanie Singh MD LAB BODY FLUIDS AND STOOLS ORD ERABLES Final Result [employer] HISTORICAL RESULTS * FLEXIBLE SIGMOIDOSCOPY REPORT (07/17/2012) Anatomical Region Laterality Modality Other Narrative 07/17/2012 Ordered by an unspecified provider. Historical Provider GI PROCEDURE ORDERABLES F inal Result from Last 3 Months or Most Recently Relevant to Health Maintenance Insurance [employer] CHOICE MEDICARE O [facility] [employer] MEDICARE HMO MEDICARE [employer] [facility] MEDICARE Address: [address] [address] [place] [address] [employer] MEDIC[employer] HMO Advance Directives For more information, please contact: [phone] Documents on File Type Date Recorded Patient Biological Science Aide Expl anation ADVANCE DIRECTIVE 08/18/2012 12:00 AM DNR ADVANCE DIRECTIVE 10/23/2011 12:00 AM SONIYA R OF DISPLAY CARD WRITER FINANCIAL/MEDICAL * Full Code (Latest Code Status on File) Date Activated Date Inactivated Comments 04/19/2023 11:04 AM 05/18/2023 5:10 PM Care Teams Ingot Car Operator Relationship Specialty Start Date End Date Stephanie Singh MD PCP - General Internal Medicine 11/09/18
--- OUTSIDE RECORDS SUMMARY | 2024-07-27 13:27 | XMS_ITS | Continuity of Care Document ---
Author Organization [facility] Address [address] [facility] [address] [place] [address] Phone Care Team Providers Care Licensed Physical Therapy Assistant Name Role Phone Toro OD, Lion Unavailable Unavailable Advance Directives Directive Yes / No Effective Date File Name No Information Encounters Encounter Description Practice Location Reason(s) For Visit Diagnoses Date Provider Providers Copied on Encounter [facility], [address], [place], [place], [id number], [place] tel:[phone] [facility] No Information Jul-0 9-200 6 Toro OD Lion. [address] , [address], [place], [address], [place]. tel:[phone] Family History Family Member Type Diagnosis Age At Onset No Information Payers Payer name Insurance type Covered constitution party ID Authoriza tion(s) Medicare [facility] [id number] Social History Type Description Quantity Date Captured [...]
--- OUTSIDE RECORDS SUMMARY | 2024-07-27 13:28 | XMS_ITS | Data Portability ---
Author Organization [facility] and, [facility]) Address [address] [place] [address] Care Team Providers Care Creative Services Manager Name Role Phone HERLINDA YA Primary Care Provider NAHID MORENO Senior Software Quality Engineer Assessment Encounter Date Assessment Date Assessment LastModified by Organization Details LastModified Time 06/19/2022 06/19/2022 61 year old with a history of symptomatic varicose veins and peripheral arterial disease here for vein closure procedure. We decided to defer any additional sclerosant procedures because of the large nature of the SSV seen while scanning the varicosities today. I recommend she return for another ultrasound to allow for planning for closure of her SSV's. I suspect this would help heal her wounds and would need to be completed prior to any additional sclerotherapy. Due to the persistent nature of the wounds, I also recommend she return for an updated arterial ultrasound. Her PAD could potentially be worsened and therefore inhibiting wound healing. I will discuss further treatment planning after reviewing her ultrasound results. Of note, I recommend she return to her primary care provider to discuss testing/treatment for what appears to be possible plaque psoriasis on her right anterior foot. She may need a referral for dermatology. Not available 06/19/2022 13:25:26 07/12/2022 07/12/2022 61 year old female with history of severe venous insufficiency status post vein closures here for post treatment ultrasound and repeat arterial ultrasound due to non-healing wounds. A previous IVUS on 09/18/21 was negative for iliac vein compression. I discussed the results of her post treatment venous ultrasound which indicated successful treatment of the bilateral GSV's. A chronic DVT is visualized in the common femoral vein which she is currently taking xarelto for. Her left SSV is 0.35 cm with mild reflux of 509 m/s An updated arterial ultrasound performed today demonstrated monophasic wave forms to the bilateral DPA's. There are elevated velocities seen in the right CLIF and bilateral CONSULTING SERVICES MANAGER's. TOM's and TBI's are unable to be performed due to her lower extremity foot wounds. I recommended to her today to have an angiogram performed due her persistent wounds despite vein closure procedures and no iliac vein compression previously visualized. Of note, she has made an appointment for a focuser for what appears to be possible plaque psoriasis on her right anterior foot. In addition, she is agreeable for further vein closures treat her left SSV. The risks, benefits, and alternatives were discussed with the patient. The patient states they understand and wish to proceed. Treatment planning is underway. I spent a total of 45 minutes with the patient. The time was spent reviewing the chart ,discussing with patient and/or family and forming a treatment plan Treatment plan Left leg: Venaseal of SSV [email or web address] Not available 07/17/2022 16:31:01 08/26/2022 08/26/2022 62 year old with a history of peripheral arterial disease here for follow-up after developing acute onset severe bruising to the right medial and posterior thigh, extending down to her calf area. She reports mild trauma to the area a few days ago and has since had pain in the area as well. A limited ultrasound was performed which showed no source of bleeding or other abnormalities (no clot or hematoma). I conferred with her cardiology team who agreed with our recommendation to hold anticoagulants for now (she was taking 20mg xarelto as well as 650mg daily). I recommend she follow-up with them and her primary care team as soon as she can. We had treatment planned her for an angiogram last month, however she canceled multiple times. I again recommended she return for another angiogram with intervention. She would like to wait until Spring to reschedule. Not available 08/26/2022 17:11:14 Plan of Treatment Reminders Order Date Submit Date Provider Last Modified By Organization Details Last Modified Time Details Appointments None recorded . Lab CMP, serum or plasma 023 07/12/19 23 [email or web address] Not available 4 05:01:44 CBC 023 07/12/19 GHASSAN Not available 4 05:01:44 HbA1c (hemoglo bin A1c), blood 023 07/12/19 GHASSAN Not available 4 05:01:44 PT/INR 023 07/12/19 GHASSAN Not available 4 05:01:44 Referral None recorded . Procedures None recorded . Surgeries None recorded . Imaging None recorded . Medication Orders None recorded . Patient TargetsNo targets recorded. Patient InstructionsNo instructions recorded. Reason for Referral None Reported. Results Created Date Observation Date Name Description Value Unit Range Abnormal Flag Note LastModifiedBy Organization Detail LastModifiedTime 07/16/1907/12/2022 US, tristan x venou s, lower extre mity, limit ed No observ ation record ed. Not Available 2022 09:28:38 07/16/19 23 07/16/2022 US, tristan xshamaou s, lower extre mity, limit ed No observ ation record ed. [email or web address] Not Available 2022 09:28:51 07/24/19 23 07/12/2022 US, doppl er, arter ial No observ ation record ed. [email or web address] Not Available 07/01 15:04:19 08/29/19 23 08/26/2022 US, doppl er, venou s No observ ation record ed. [email or web address] Not Available 2022 09:20:17 08/29/19 23 08/26/2022 US, tristan x venou s, lower extre mity, limit ed No observ ation record ed. [email or web address] Not Available 2022 09:20:34 09/11/19 23 08/26/2022 US, duple x, arter ial, lower extre mity, limit ed No observ ation record ed. [email or web address] Not Available 2022 15:46:59 Result Notes None recorded. 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 Ria baron, [place] - [facility] and 12:54:46 Colostomy care Active 2020 R[place] [facility] and 12:54:56 Dyslipidemia 852603315 Active 2020 R[place] [facility] and 13:03:31 Cerebrovascula r accident 831960716 Active 2020 R[place] [facility] and 13:03:39 Chest pain 70460336 Active 2020 R[place] [facility] and 13:03:46 Cough 59944012 Active 2020 R[place] [facility] and 13:03:51 Edema of lower extremity 737429688 Active 2020 R[place] [facility] and 13:04:03 Dizziness 968395320 Active 2020 Ria Howell [place] [facility] and 13:04:09 Joint pain 89596940 Active 2020 [place] [facility] and 13:04:17 Seizure 36575456 Active 2020 Ria [place] [facility] and 13:04:25 Fluttering heart 837508301 Active 2020 Ria [place] [facility] and 13:04:32 Problem Notes None recorded. Procedures Surgical History Date Name Laterality Status Provider Name and Address Organization Details Recorded Time 023 OA limited LE ultrasound venous completed Ria [place]ell [place] [facility] and 08/26/2022 17:38:12 023 OA limited LE ultrasound arterial completed Ria [place]ell [place] [facility] and 08/26/2022 17:38:13 023 OALEArterialUS1 completed Ria [place]ell [place] [facility] and 07/15/2022 14:14:04 023 OALEVenousUSreflux completed Ria [place] - [facility] and 07/15/2022 14:14:55 022 Varithena completed Angella Collins [place] [facility] and 05/22/2022 13:21:26 022 OA limited LE ultrasound venous completed Angella [place] [facility] and 05/22/2022 13:22:54 022 Varithena completed Angella [place] [facility] and 05/08/2022 13:14:39 022 OA limited LE ultrasound venous completed Ria [place] [facility] and 03/20/2022 06:41:30 022 OA venaseal completed Angella [place] [facility] and 02/27/2022 14:54:33 022 OA venaseal completed Angella [place] [facility] and 02/13/2022 14:34:40 022 OA deep [place] [address] [facility], [address], [address], [place] - [facility] and 09/18/2021 11:24:33 021 OA [place] [address] [facility], [address], [address], [place] - [facility] and 06/19/2021 15:55:21 021 OA LE Quantiflow study completed [facility] 05/18/2021 13:03:57 021 OALEVenousUSreflux completed [facility] 05/18/2021 12:56:41 Colostomy completed [facility] 05/21/2021 12:56:40 section completed [facility] 05/21/2021 13:05:04 excision of aneurysm of cerebral artery completed Ria [facility] and 05/21/2021 13:05:17 Imaging Results Imaging Date Name Status LastModified by [facility]iz [email or web address] Details LastModified Time 07/12/2022 US, duplex, venous, lower extremity, limited completed [email or web address] Information not available 07/17/2022 09:28:38 07/16/2022 US, duplex, venous, lower extremity, limited completed [email or web address] Information not available 07/17/2022 09:28:51 07/12/2022 US, doppler, arterial completed [email or web address] Information not available 07/24/2022 15:04:19 08/26/2022 US, doppler, venous completed [email or web address] Information not available 08/28/2022 09:20:17 08/26/2022 US, duplex, venous, lower extremity, limited completed [email or web address] Information not available 08/28/2022 09:20:34 08/26/2022 US, duplex, arterial, lower extremity, limited completed [email or web address] Information not available 09/10/2022 15:46:59 Procedure Notes None recorded. Medical Equipment None Reported. Allergies No known drug allergies Medications Name Sig Start Date Stop Date Status Note LastModified by Organization Details LastModified Time Santyl 250 unit/gram topical ointment active Not Available Not Available Not Available cyclobenzap rine 10 mg tablet TAKE 1 TABLET BY MOUTH TWICE DAILY active Not Available Not Available No t Available furosemide 40 mg tablet TAKE 1 TABLET BY MOUTH EVERY MORNING active Not Available Not Available No t Available Vitamin C 500 mg tablet TAKE 1 TABLET BY MOUTH DAILY active Not Available Not Available No t Available aspirin 325 mg tablet Take 1 tablet every day by oral route. active Not Available Not Available No t Available cephalexin 250 mg capsule active Not Available Not Available Not Available methadone 10 mg tablet TAKE 1 TABLET BY MOUTH TWICE DAILY active Not Available Not Available No t Available phentermine 37.5 mg tablet TAKE 1 TABLET BY MOUTH EVERY DAY 07/27 completed Not Available Not Available Not Available sulfamethox azole 800 mg-trimetho prim 160 mg tablet TAKE 1 TABLET BY MOUTH 3 TIMES EVERY WEEK FOR 10 DAYS active Not Available Not Available No t Available potassium chloride 20 mEq/15 mL oral liquid TAKE 15 ML BY MOUTH EVERY DAY active Not Available Not Available No t Available tolterodine 2 mg tablet TAKE 1 TABLET BY MOUTH TWICE DAILY active Not Available Not Available No t Available cephalexin 500 mg capsule TAKE 1 CAPSULE BY MOUTH THREE TIMES DAILY active Not Available Not Available No t Available montelukast 10 mg tablet active Not Available Not Available Not Available Tegretol 200 mg tablet TAKE 4 TABLETS BY MOUTH DAILY 07/27 completed Not Available Not Available Not Available methylpredn isolone 4 mg tablets in a dose pack FOLLOW PACKAGE DIRECTION S active Not Available Not Available No t Available amoxicillin 875 mg-potassiu m clavulanate 125 mg tablet active Not Available Not Available Not Available zinc sulfate 50 mg zinc (220 mg) capsule TAKE 1 CAPSULE BY MOUTH DAILY active Not Available Not Available No t Available cholecalcif dominique (vitamin D3) 1,250 mcg (50,000 unit) capsule TAKE 1 CAPSULE BY MOUTH MONTHLY active Not Available Not Available No t Available oxycodone 10 mg tablet TAKE 1 TABLET BY MOUTH TWICE DAILY FOR CHRONIC PAIN active Not Available Not Available No t Available Xarelto 20 mg tablet active Not Available Not Available No t Available Trulicity 0.75 mg/0.5 mL subcutaneou s pen injector ADMINISTE R 0.75 MG UNDER THE SKIN WEEKLY FOR WEIGHT LOSS active Not Available Not Available No t Available Vitals None Recorded Social History Question Answer Notes LastModified by Organizat ion Details LastModified Time Tobacco Smoking Status Former Smoker R[place] - [facility] and 05/21/2021 13:07:07 What Is Your Level Of Alcohol Consumption? None [email or web address] Information not available 05/21/2021 What Is Your Level Of Caffeine Consumption? None [email or web address] Information not available 05/21/2021 What Was The Date Of Your Most Recent Tobacco Screening? 09/18/2021 [email or web address] Information not available 09/18/2021 At What Age Did You Start Smoking Tobacco? 18 Information not available 07/27/2021 Do You Use Any Illicit Or Recreational Drugs? No [email or web address] Information not available 05/21/2021 How Many Years Have You Smoked Tobacco? 20 [email or web address] Information not available 07/27/2021 Do You Or Have You Ever Used Any Other Forms Of Tobacco Or Nicotine? No [email or web address] Information not available 05/21/2021 Sex: Unknown Functional Status None recorded. Mental Status None recorded. Family History Nothing Reported. Medical History Condition Response Coronary Artery Disease N COPD N Clotting Disorder Y Pacemaker N Anemia N Genitourinary Disease N Ulcers Y Gastrointestinal Disease N Deep Vein Thrombosis Y Anxiety Disorder N Varicose Veins N Diabetes N Anticoagulation therapy N Bleeding Disorder Y Hyperlipidemia N Cancer N Stroke Y Asthma Y Neurologic Disorder N Hepatitis N Heart Disease N Pulmonary Embolism N Hypertension N Kidney Disease N Gynecological HistoryNo gynecological history recorded. Obstetrics History GPAL:G 0 P 0 0 0 0 Past Encounters Encounter ID Performer Location Encounter Start Date Encounter Closed Date Diagnosis/Indication Diagnosis SNOMED-CT Code Diagnosis ICD10 Code Diagnosis Note [id number] Ria Dante [facility] ( [place] ) [address] [facility] [place] [address] 05/18/2021 12:31:42 05/21/2021 13:22:43 Varicose veins of lower extremity 61928108 I83.893 Primary ve nous insufficiency of leg 200607919 I87.2 Venous sta sis ulcer of leg 208329119 I83.009 Ischemic u lcer of lower leg due to atherosclerotic disease 0637660742 5231995 I70.248 [id number] Francisco Oh MD [facility] [address] [place] [address] 06/19/2021 10:38:59 07/11/2021 17:25:12 Ischemic ulcer of lower leg due to atherosclerotic disease 0175565922 8779206 I70.248 [id number] Angella Collins [facility] ( [place] ) [address] [place] [address] 07/27/2021 11:02:17 07/27/2021 16:33:48 Venous stasis ulcer of leg 233596815 I83.009 Ischemic u lcer of lower leg due to atherosclerotic disease 3174797395 8289471 I70.248 Edema of l ower extremity 524884401 R60.0 Varicose v eins of lower extremity 86887261 I83.893 [id number] ( [facility] ) [address] [place] [address] 09/18/2021 08:02:29 09/25/2021 00:01:45 Obstruction of iliac vein 505135758 I87.1 [id number] Francisco Oh MD [facility] [address] [place] [address] ,[facility] [address] ( [place] [address] 10/01/2021 09:44:31 10/01/2021 10:30:33 Venous stasis ulcer of leg 648434766 I83.009 Varicose v eins of lower extremity 69561991 I83.893 Edema of l ower extremity 917692596 R60.0 [id number] [facility] ( [place] ) [address] [facility] [place] [address] 02/13/2022 13:49:29 02/13/2022 14:54:48 Varicose veins of lower extremity 12767469 I83.893 Edema of l ower extremity 075980420 R60.0 [id number] [facility] ( [place] ) [address] [facility] [place] [address] 02/27/2022 13:05:38 02/27/2022 15:13:04 Varicose veins of lower extremity 45807547 I83.893 Edema of l ower extremity 464216525 R60.0 Venous ulc er of lower extremity due to chronic peripheral venous hypertension 8474795327 56972 I87.319 [id number] Ria Sanders [place] [address] [place] [address] 03/15/2022 09:42:53 03/20/2022 09:59:02 Varicose veins of lower extremity 55895155 I83.893 [id number] Angella Collins [facility] [address] [facility], [place] ,[place] [address] ( [facility] [place] [address] 03/18/2022 14:11:00 03/18/2022 14:38:41 Varicose veins of lower extremity 14327042 I83.893 Venous sta sis ulcer of leg 132140873 I83.013 [id number] [facility] ( [place] [facility] [address] [facility] [place] [address] 03/27/2022 09:29:51 03/27/2022 13:40:43 Varicose veins of lower extremity 67160673 I83.893 Venous sta sis ulcer of leg 766094248 I83.013 Cellulitis of right lower limb 8787821246 0116644 L03.115 She will be seen next door by her primary care team for further management (culture and antibiotic s). [id number] [facility] ( [place] [facility] [address] [place] [address] 05/08/2022 10:10:48 05/08/2022 14:21:27 Venous stasis ulcer of leg 721884086 I83.023 Varicose v eins of lower extremity 07955244 I83.893 Edema of l ower extremity 908815141 R60.0 [id number] [facility] ( [place] [facility] [address] [place] [address] 05/22/2022 11:16:14 05/22/2022 14:10:54 Varicose veins of lower extremity 02284192 I83.893 Venous sta sis ulcer of leg 324854227 I83.023 [id number] [facility] ( [place] [facility] [address] [place] [address] 06/19/2022 12:13:38 06/19/2022 13:34:58 Varicose veins of lower extremity 57049150 I83.893 Edema of l ower extremity 851212951 R60.0 Bilateral lower limb pain at rest due to atherosclerosis 5579922608 6123874 I70.223 Ischemic u lcer of lower leg due to atherosclerotic disease 7433728063 3292423 I70.90 Venous sta sis ulcer of leg 825244913 I83.013 Plaque psoriasis 09 L40.0 (pending diagnosis) [id number] ( [facility] [address] [place] [address] 07/12/2022 09:40:42 07/17/2022 16:33:08 Pre-surgery testing 179009587 Z01.89 Venous sta sis ulcer co-occurrent with edema of lower leg 6090368727 9100 I83.009 Ischemic u lcer of lower leg due to atherosclerotic disease 5213627086 8340390 I70.238 I70.248 Bilateral lower limb pain at rest due to atherosclerosis 5506194155 8677026 I70.223 Edema of l ower extremity 596837070 R60.0 Varicose v eins of lower extremity 33887872 I83.893 [id number] Ria Sanders [place] [address] [place] [address] 07/12/2022 09:50:11 07/15/2022 16:18:16 Ischemic ulcer of lower leg due to atherosclerotic disease 5012796542 0688216 I70.238 I70.248 Venous sta sis ulcer co-occurrent with edema of lower leg 1813590097 9100 I83.009 [id number] Angellamatty Collins [facility] [address] [address] 08/26/2022 15:22:21 08/27/2022 10:06:36 Spontaneous ecchymosis 405950533 R23.3 Ischemic u lcer of lower leg due to atherosclerotic disease 1670436609 9332711 I70.248 Varicose v eins of lower extremity 64153386 I83.893 [id number] Ria Sanders [address] [address] 08/26/2022 17:36:07 08/27/2022 10:09:53 Spontaneous ecchymosis 472979955 R23.3 Ischemic u lcer of lower leg due to atherosclerotic disease 0776020325 4189585 I70.248 Health Concerns Section Related Observation LastModified by Organization Detai ls LastModified Time None Recorded Concern Status LastModified by Organization Details LastModified Time None Recorded Advance Directives Directive None Recorded Payers Encounter Date Sequence Insurance Name Policy Number Policy Payne Covered Member ID Payne Member ID Guarantor Name 06/19/2022 2 [employer] (MEDICARE REPLACEMENT HMO) [id number] Racquel Martha [id number] [place]quel [place] 06/19/2022 1 [employer] (HMO) [id number] [place]quel [place] [id number] Racquel Martha 07/12/2022 2 [place] [facility] Racquel M [place] [id number] Racquel Martha 07/12/2022 1 [employer] (MEDICARE REPLACEMENT PPO) [id number] Racquel [place] [id number] Racquel Martha 07/12/2022 2 [place] [facility] [place] [facility] Racquel M Martha [id number] Racquel [place] 07/12/2022 1 [employer] (MEDICARE REPLACEMENT PPO) [id number] Racquel [place] [id number] Racquel [place] 08/26/2022 2 [place] [facility] [place] [facility] Racquel M [place] [id number] Racquel [place] 08/26/2022 1 [place] Rac[place] [id number] Racquel Martha 08/26/2022 2 [place] [facility] [place] [facility] Racquel M [place] [id number] Racquel [place] 08/26/2022 1 [place] Racquel [place] [id number] Racquel [place] Notes Date Note Type Note Provider Name and Address Organization Details Recorded Time 06/19/2022 text/html 61 year old with a history of symptomatic varicose veins here for planned vein closure. Unfortunately her wounds persist and have not gotten smaller or shallower. She has what appears to be possible psoriasis lesion to the anterior aspect of her right foot that is very itchy. It has some small open areas due to scratching frequently. Angella baron, [place] - [facility] and 06/19/2022 13:26:16 07/12/2022 text/html 61-year-old with a history of severe venous insufficiency status post vein closures being seen for post vein treatment ultrasound and arterial ultrasound due to non-healing wounds. JHONNY ALDRICH, [employer] [address], [address], [employer] [facility] [employer] [facility] and 07/17/2022 16:31:40 08/26/2022 text/html 62 year old with a history of peripheral arterial disease and venous insufficiency here with recent onset severe bruising to the right upper leg. She was evaluated in the urgent care setting and discharged without any treatment recommendations. She reports she has had pain in her right posterior thigh for a few days and it still persists. She did have mild trauma to the area from walking into a wooden chair. Angella baorn, [employer] [facility] and 08/26/2022 17:11:28 OBGyn Episode No OBEpisode recorded.
--- OUTSIDE RECORDS SUMMARY | 2024-07-27 13:28 | XMS_ITS | Encounter Summary ---
Author Organization [facility] Address [address] [place] [address] Care Team Providers Care River Guide Name Role Phone Nayely Singh MD Primary Care Provider [phone] Encounter Details Date Type Department Care Team (Late st Contact Info) Description 08/07/2008 Outpatient Historical [facility] [place], Authorized P NO ADDRESS ON FILE Sumit Camargo MD [address], [place] [id number] Social History Tobacco Use Types Packs/Day Years Used Date Smoking Tobacco: Never Assessed Comments Unknown Sex and Gender Information Value Date Recorded Sex Assigned at Not on file Legal Sex Female 5:41 AM LAND EXAMINER Gender Identity Not on file Sexual Orientation Not on file documented as of this encounter Plan of Treatment Upcoming Encounters Date Type Department Care Team (Late st Contact Info) Description 08/03/2024 4:30 PM LAND EXAMINER Telephone Check Up [facility] Oncology and Hematology - [place]am[place] [address] [facility] [address] [place] [address] Sascha Donohue MD [address] [facility] [address] [place] [address] 08/06/2024 9:45 AM LAND EXAMINER Office Visit [facility] Breast Surgery Gianni Davis [address] [facility] [address] [place] [address] [place] [address] [facility] [address] [place] [address] documented as of this encounter Procedures Procedure Name Priority Date/Time Associated Diagnosis Comments XR FOOT 3+ VW LEFT Routine 08/07/2008 6: 50 PM LAND EXAMINER CBC WITH DIFFERENTIAL Stat 08/07/2008 6:45 PM LAND EXAMINER SEDIMENTATION RATE Stat 08/07/2008 6: 45 PM LAND EXAMINER D-DIMER Stat 08/07/2008 6:45 PM LAND EXAMINER C-REACTIVE PROTEIN Stat 08/07/2008 6: 45 PM LAND EXAMINER CARBAMAZEPINE LEVEL Stat 08/07/2008 6 :45 PM LAND EXAMINER COMPREHENSIVE METABOLIC PANEL Stat 08/07/2008 6:45 PM LAND EXAMINER documented in this encounter Results * XR FOOT 3+ VW LEFT (08/07/2008 6:50 PM LAND EXAMINER) Anatomical Region Laterality Modality Ankle / Foot Other 08/07/2008 6:50 PM LAND EXAMINER Narrative 08/07/2008 7:09 PM LAND EXAMINER ? [facility] ? [address] ?. [place], [place] ??[address] ?Admit Date: 08/07/2008 ? ALEKSEY, FREDY ?Sex: F ?Admit Prov: ER, AUTHORIZED P ? Date: 1960 ?Primary Care Prov: ? CMRN: [id number] ?Room: ER-A ? SSN: [id number] ? IMAGING SERVICES ?Ordering Prov: N/A ? Accession Number: [id number] ?Interpretation ? Exam: Left foot, 3 views on 08/07/2008. ? History: Pain. ? The bones are normally developed and mineralized. There is a small plantar ? calcaneal spur. No evidence of ??acute or old bony trauma is seen. No lytic ? or blastic lesions are identified. No significant articular abnormalities ? are identified. The adjacent soft tissues are unremarkable. ? Conclusion: Unremarkable exam.. ? . ? Dictated by: ??MAYTE BENDER ? 08/07/2008 19:06 ? Electronically signed by: ??MAYTE BENDER ? 08/07/2008 19:07 Procedure Note Mayte Bender MD - 08/07/2008 [facility] [address] [place], [place] [address] Admit Date: 08/07/2008 FREDY THOMAS Sex: F Admit Prov: POLLO ELIAS Date: 1960 Primary Care Prov: CMRN: [id number] Room: -A SSN: [id number] IMAGING SERVICES Ordering Prov: N/A Interpretation Exam: Left foot, 3 views on 08/07/2008. History: Pain. The bones are normally developed and mineralized. There is a smallplantar calcaneal spur. No evidence of acute or old bony trauma is seen. Nolytic or blastic lesions are identified. No significant articularabnormalities are identified. The adjacent soft tissues are unremarkable. Conclusion: Unremarkable exam.. . Dictated by: MAYTE BENDER 08/07/2008 19:06 Electronically signed by: MAYTE BENDER 08/07/2008 19:07 Sumit Camargo MD DIAGNOSTIC IMAGING ORDERABLES Final Result * (ABNORMAL) CBC WITH DIFFERENTIAL (08/07/2008 6:45 PM LAND EXAMINER) RBC 4.05 3.90 - 4.90 M/uL [facility] MCHC 34.6 31.5 - 35.5 % [facility] MCV 97.8 82.0 - 99.0 fL [facility] HEMOGLOBIN 13.7 11.8 - 14.8 g/dL [facility] RDW 12.8 11.5 - 14.5 % [facility] WBC 6.0 4.0 - 9.8 K/uL [facility] MCH 33.8(H) 27.2 - 32.6 pg [facility] HEMATOCRIT 39.6 35.5 - 44.0 % [facility] RDW-STDEV 44.9 37.1 - 48.7 fL [facility] NEUTROPHILS 58 45 - 70 % [facility] NEUTROPHIL ABSOLUTE 3.42 1.90 - 7.00 K/uL [facility] EOSINOPHILS 4 0 - 7 % [facility] EOSINOPHIL ABSOLUTE 0.22 0.00 - 0.70 K/uL [facility] LYMPHOCYTES 33 16 - 45 % [facility] LYMPHOCYTE ABSOLUTE 1.97 0.70 - 4.50 K/uL [facility] BASOPHILS 0 0 - 2 % [facility] BASOPHILS ABSOLUTE 0.01 0.00 - 0.20 K/uL [facility] MONOCYTES 6 3 - 13 % [facility] MONOCYTE ABSOLUTE 0.33 0.10 - 1.30 K/uL [facility] MPV 10.3 9.3 - 12.4 fL [facility] PLATELETS 163 140 - 350 K/uL [facility] Blood specimen (specimen) 08/07/2008 6:45 PM LAND EXAMINER 08/07/2008 6:48 PM LAND EXAMINER Sumit Camargo MD HEMATOLOGY ORDERABLES Edited Performing Organization Address [facility] de Phone Number INTERFACE SYSTEM Refer to clinic/hospital department [facility] CLIA# [id number] [address] [place] [address] * SEDIMENTATION RATE (08/07/2008 6:45 PM LAND EXAMINER) ESR (SEDIMENTATION RATE) 8 0 - 20 mm/hr [facility] Blood specimen (specimen) 08/07/2008 6:45 PM LAND EXAMINER 08/07/2008 6:48 PM LAND EXAMINER Sumit Camargo MD HEMATOLOGY ORDERABLES Final Re sult Performing Organization Address [facility] de Phone Number INTERFACE SYSTEM Refer to clinic/hospital department [facility] CLIA# [id number] [address] [place] [address] * CARBAMAZEPINE LEVEL (08/07/2008 6:45 PM LAND EXAMINER) Pathologist [facility] CARBAMAZEPINE LEVEL 9.4 4.0 - 12.0 ug/mL [facility] Comment:Carbamazepine Toxic Level => 20 ug/mL Blood specimen (specimen) 08/07/2008 6:45 PM LAND EXAMINER 08/07/2008 6:48 PM LAND EXAMINER Sumit Camargo MD CHEMISTRY ORDERABLES Final Res ult Performing Organization Address [facility] Phone Number INTERFACE SYSTEM Refer to clinic/hospital department [facility] CLIA# [id number] [address] [address] * (ABNORMAL) D-DIMER (08/07/2008 6:45 PM LAND EXAMINER) [facility] D-DIMER QUANT 0.52(H) <=0.42 ug/mL FEU [facility] Comment: DVT Screen reference range ??<0.45 ug/mL FEU D. Dimer Interpretation: The reference range is not clearly established in uncomplicated pregnancies. ??Values above the upper limit of the reference range are common from the 31st to 40th week of . ??High negative predictive values for DVT have been reported with the current methodology, as part of a comprehensive medical examination, including risk stratification. Blood specimen (specimen) 08/07/2008 6:45 PM LAND EXAMINER 08/07/2008 6:48 PM LAND EXAMINER Sumit Camargo MD HEMATOLOGY ORDERABLES Final Re sult Performing Organization Address [facility] Phone Number INTERFACE SYSTEM Refer to clinic/hospital department [facility] CLIA# [id number] [address] [place] [place] [address] * C-REACTIVE PROTEIN (08/07/2008 6:45 PM LAND EXAMINER) [facility] CRP <0.2 0.0 - 0.8 mg/dL [facility] Blood specimen (specimen) 08/07/2008 6:45 PM LAND EXAMINER 08/07/2008 6:48 PM LAND EXAMINER us Sumit Camargo MD CHEMISTRY ORDERABLES Final Res ult INTERFACE SYSTEM Refer to clinic/hospital department [facility] CLIA# [id number] [address] [place] [address] * (ABNORMAL) COMPREHENSIVE METABOLIC PANEL (08/07/2008 6:45 PM LAND EXAMINER) POTASSIUM 3.6 3.5 - 4.9 mmol/L [facility] TOTAL PROTEIN 7.0 6.3 - 8.6 g/dL [facility] GLUCOSE 79 65 - 99 mg/dL [facility] AST 21 12 - 32 U/L [facility] BUN 8 6 - 20 mg/dL [facility] CALCIUM 9.9 8.6 - 10.2 mg/dL [facility] ALBUMIN 4.3 3.4 - 4.8 g/dL [facility] CHLORIDE 104 96 - 108 mmol/L [facility] CREATININE 0.55 0.51 - 0.95 mg/dL [facility] ALT 16 0 - 31 U/L [facility] SODIUM 137 135 - 145 mmol/L [facility] ALKALINE PHOSPHATASE 112(H) 35 - 104 U/L [facility] CO2 26 22 - 30 mmol/L [facility] BILIRUBIN TOTAL 0.4 0.2 - 1.0 mg/dL [facility] GFR, >60 >=60 mL/min/1. 7 sq meter [facility] GFR >60 >=60 mL/min/1. 7 sq meter [facility] Comment: Modification of Diet in Renal Disease (MDRD) study formula. Estimated GFR rate interpretative information for both Americans and non- Americans is available on the [facility] Intranet at: [email or web address] Select: Lab Policies and Procedures Select: Reference Ranges - GFR Blood specimen (specimen) 08/07/2008 6:45 PM LAND EXAMINER 08/07/2008 6:48 PM LAND EXAMINER Sumit Camargo MD CHEMISTRY ORDERABLES Edited INTERFACE SYSTEM Refer to clinic/hospital department [facility] CLIA# [id number] [address] [place] [address] documented in this encounter Visit Diagnoses Not on filedocumented in this encounter Care Teams River Guide Relationship Specialty Start Date End Date Nayely Singh MD [address] [place] [address] PCP - General Family Practice 12/10/23 documented as of this encounter
--- OUTSIDE RECORDS SUMMARY | 2024-07-27 13:28 | XMS_ITS | Patient Health Record ---
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 [place] [address] [id number] Racquel Thomas Self - patient is the insured
--- OUTSIDE RECORDS SUMMARY | 2024-07-27 13:28 | XMS_ITS | Data Portability ---
Author Organization [place] - [facility] OFFICE Address [address] [place] [address] Care Team Providers Care Manager Video Name Role Phone HERLINDA YA Primary Care Provider [phone] Assessment No assessment recorded. Plan of Treatment Reminders Order Date Submit Date Provider Last Modified By Organization Details Last Modified Time Details Appointments None record ed. Lab None record ed. Referral None record ed. Procedures None record ed. Surgeries None record ed. Imaging None record ed. Medication Orders None record ed. Patient TargetsNo targets recorded. Patient Instructions Encounter Date Encounter Id Patient Instructions Last Modified By Organization Details Last Modified Time 09/05/2022 [id number] Weight loss 20? ? ?pounds Exercise advised Low cholesterol diet advised Low sodium diet advised. [email or web address] Not available 09/05/2022 16:43:56 Reason for Referral None Reported. Results Created Date Observation Date Name Description Value Unit Range Abnormal Flag Note LastModifiedBy Organization Detail LastModifiedTime 06/13/2006/08/2021 elect rocar diogr am No observ ation record ed. [email or web address] Not Available 2020 12:01:05 09/12/19 23 09/05/2022 elect rocar diogr am No observ ation record ed. [email or web address] Not Available 2022 15:39:43 09/13/19 23 09/11/2022 , echo ardio gram No observ ation record ed. [place] [facility] [address], [place], [address], 09/18/2022 05:09:00 09/14/19 23 09/11/2022 , echoc ardio gram No observ ation record ed. [email or web address] Not Available 2022 11:28:41 Result Notes None recorded. Problems Name Problem SNOMED Code Status Onset Date Resolution Date Notes Provider Name and Address Organization Details Recorded Time Cerebrovascul ar accident 839719256 Active 2016 Julissa [place], [place] - [facility] 7 10:22:01 Cough 29156721 Active 2016 Julissa Ngoer [place], [place] - [facility] 7 10:23:59 Fluttering heart 522838154 Active 2016 Julissa Segundo [place], [place] - [facility] 7 10:24:08 Cramp in lower limb 761847208 Active 2016 Julissa Segundo [place], [place] - [facility] 7 10:24:16 Edema of lower extremity 304667991 Active 2016 Julissa Segundo [place], [place] - [facility] 7 10:24:25 Chest pain 82577552 Active 2016 Julissa Segundo [place], [place] - [facility] 7 10:24:33 Dizziness 515104040 Active 2016 [facility] Ratna [place], [place] - [facility] 7 10:24:42 Seizure 05742553 Active 2016 Julissamatty [place], [place] - [facility] 7 10:24:50 Joint pain 55187785 Active 2016 [facility] Segundo [place], [place] - [facility] 7 10:25:30 History of pulmonary embolus 889897806 Active 2016 Adrienne [place], [place] - [facility] 7 14:44:32 Peripheral arterial occlusive disease 030402677 Active 2016 Adrienne [place], [place] - [facility] 2 15:39:24 Deep venous thrombosis 452676415 Active 2016 Adrienne [place], [place] - [facility] 2 15:39:17 Dyslipidemia 367265635 Active 2016 Adrienne [place], [place] - [facility] 2 15:39:20 Venous insufficiency of leg 501887647 Active 2016 s/p brady iliac venous stents [facility] [place] - [facility] 7 16:02:32 Notes:BLOOD CLOTS: LEGS/LUNG S Problem Notes None recorded. Procedures Surgical History None recorded. Imaging Results Imaging Date Name Status LastModified by Organization Details LastModified Time 06/08/2021 electrocardiogram completed Informa tion not available 06/13/2021 12:01:05 09/05/2022 electrocardiogram completed Informa tion not available 09/11/2022 15:39:43 09/11/2022 US, echocardiogram completed [facility] [address], [place], [address], 09/18/2022 05:09:00 09/11/2022 US, echocardiogram completed Inform ation not available 09/13/2022 11:28:41 Procedure Notes None recorded. Medical Equipment None Reported. Allergies No known drug allergies Medications Name Sig Start Date Stop Date Status Note LastModified by Organization Details LastModified Time furosemide 40 mg tabs qd 08/25 completed Not Available Not Available Not Available santyl 250 unit/gm oint 04/14 completed Not Available Not Available Not Available amoxicilli n/clavulan ate potassium 875-125 mg tabs 08/25 completed pt not taking 08/25/20 sp Not Available Not Available Not Available potassium chloride er 10 meq tbcr 08/25 completed pt not taking 08/25/20 sp Not Available Not Available Not Available compounded medication APPLY 3-4 TIMES DAILY AM, PM, AND NEEDED 08/25 completed Not Available Not Available Not Available methadone hcl 5 mg tabs 03/11 completed Not Available Not Available Not Available xarelto 10 mg tabs 03/11 completed Not Available Not Available Not Available advair diskus 250-50 mcg/dose aepb 08/25 completed Not Available Not Available Not Available montelukas t sodium 10 mg tabs qd 08/25 completed Not Available Not Available Not Available se-quan 19 29-1 mg tabs qd 03/07 completed Not Available Not Available Not Available gabapentin 300 mg caps qd 08/25 completed Not Available Not Available Not Available sulfametho xazole/tri methoprim ds 800-160 mg tabs 03/11 completed Not Available Not Available Not Available lidocaine 5 % oint 08/25 completed Not Available Not Available Not Available amoxicilli n/clavulan ate potassium 500-125 mg tabs 08/25 completed No longer take it 9 : MA Not Available Not Available Not Available oxycodone hcl 10 mg tabs prn 08/25 completed Not Available Not Available Not Available desoximeta sone 0.05 % oint 08/25 completed Not Available Not Available Not Available erythromyc in 5 mg/gm oint 03/11 completed Not Available Not Available Not Available ciprofloxa ludin hcl 500 mg tabs 01/12 completed Not Available Not Available Not Available doxycyclin e hyclate dr 100 mg tbec 01/12 completed Not Available Not Available Not Available nitrofuran toin monohydrat e/macrocry stals 100 mg caps 01/12 completed Not Available Not Available Not Available methadone hcl 10 mg tabs 08/25 completed Not Available Not Available Not Available tegretol 200 mg tabs i tab 4x a day 08/25 completed Not Available Not Available Not Available methadone hydrochlor yomaira 10 mg tabs 08/25 completed Not Available Not Available Not Available doxycyclin e monohydrat e 100 mg caps 03/11 completed Not Available Not Available Not Available cephalexin 500 mg caps 08/25 completed No longer take it 9 : MA Not Available Not Available Not Available dicloxacil lavell sodium 500 mg caps 02/16 completed Not Available Not Available Not Available xarelto 20 mg tabs qd 09/29 completed Not Available Not Available Not Available diclofenac sodium 1.5 % soln 08/25 completed Not Available Not Available Not Available hydrocodon e/acetamin ophen 5-325 mgtabs 01/12 completed Not Available Not Available Not Available Santyl 250 unit/gram topical ointment IZABEL EXT AA D 03/07 completed Not Available Not Available Not Available cyclobenza gerald 10 mg tablet TAKE 1 TABLET BY MOUTH TWICE DAILY 03/07 completed Not Available Not Available Not Available furosemide 40 mg tablet TAKE 1 TABLET BY MOUTH EVERY MORNING FOR EDEMA/CH F active Not Available Not Available No t Available dicloxacil lavell 500 mg capsule Take 1 capsule every 8 hours by oral route. 08/25 completed No longer take it 9 : MA Not Available Not Available Not Available doxycyclin e hyclate 100 mg capsule TK 1 C PO BID 08/25 completed pt not taking 08/25/20 sp Not Available Not Available Not Available atorvastat in 20 mg tablet active Not Available Not Available Not Available Vitamin C 500 mg tablet TAKE 1 TABLET BY MOUTH DAILY 03/07 completed Not Available Not Available Not Available polyethyle ne glycol 3350 17 gram oral powder packet DISSOLVE 2 PACEKTS INTO 8 OUCNES OF FLUID DAILY AND DRINK active Not Available Not Available No t Available aspirin 325 mg tablet Take 2 tablets every day by oral route as directed . active Not Available Not Available No t Available lidocaine 5 % topical cream Apply 1 applicat ion twice a day by topical route. 08/25 completed Not Available Not Available Not Available sulfametho xazole 400 mg-trimeth oprim 80 mg tablet TK 1 T PO BID 08/25 completed pt not taking 08/25/20 sp Not Available Not Available Not Available cephalexin 250 mg capsule 08/25 completed pt not taking 08/25/20 sp Not Available Not Available Not Available methadone 10 mg tablet TAKE 1 TABLET BY MOUTH TWICE DAILY 03/07 completed Not Available Not Available Not Available clonazepam 0.5 mg tablet Take 1 tablet twice a day by oral route as directed . 04/14 completed Not Available Not Available Not Available phentermin e 37.5 mg tablet TAKE 1 TABLET BY MOUTH EVERY DAY 12/22 completed Not Available Not Available Not Available sulfametho xazole 800 mg-trimeth oprim 160 mg tablet TAKE 1 TABLET BY MOUTH 3 TIMES EVERY WEEK FOR 10 DAYS 09/05 completed Not Available Not Available Not Available triamcinol one acetonide 0.1 % topical cream IZABEL EXT TO DRY ITCHY AREA ON LOWER EXTREMIT IES PRN D 09/05 completed Not Available Not Available Not Available potassium chloride 20 mEq/15 mL oral liquid TAKE 15 ML BY MOUTH EVERY DAY active Not Available Not Available No t Available carbamazep ine ER 400 mg tablet,ext ended release,12 hr 03/07 completed Not Available Not Available Not Available tolterodin e 2 mg tablet TAKE 1 TABLET BY MOUTH TWICE DAILY 08/25 completed Not Available Not Available Not Available metoclopra mide 5 mg tablet active Not Available Not Available Not Available baclofen 10 mg tablet TK 1 T PO BID 09/05 completed once a day 08/25/20 sp Not Available Not Available Not Available doxycyclin e monohydrat e 100 mg capsule TK 1 C PO BID FOR 14 DAYS 08/25 completed Not Available Not Available Not Available cephalexin 500 mg capsule TAKE 1 CAPSULE BY MOUTH THREE TIMES DAILY active Not Available Not Available No t Available mupirocin calcium 2 % topical cream IZABEL EXT AA BID 03/07 completed Not Available Not Available Not Available gabapentin 300 mg capsule Take 1 capsule twice a day by oral route. 01/27 completed Not Available Not Available Not Available montelukas t 10 mg tablet Take 1 tablet every day by oral route. active Not Available Not Available No t Available Tegretol 200 mg tablet TAKE 4 TABLETS BY MOUTH DAILY 01/18 completed pt no longer takes 021 nj Not Available Not Available Not Available methylpred nisolone 4 mg tablets in a dose pack FOLLOW PACKAGE DIRECTIO NS 09/05 completed Not Available Not Available Not Available methadone 5 mg tablet Take 1 tablet twice a day by oral route. 04/14 completed Not Available Not Available Not Available amoxicilli n 875 mg-potassi um clavulanat e 125 mg tablet 09/05 completed pt is no longer taking 01/18/22 SA Not Available Not Available Not Available Pneumovax- 23 25 mcg/0.5 mL injection syringe ADM 0.5ML IM UTD 08/25 completed Not Available Not Available Not Available oxycodone 10 mg 1 tab qd prn 01/12 completed Not Available Not Available Not Available methadone 5mg 1 tab qd 10/29 completed Not Available Not Available Not Available potassium 10dmeo BID 01/27 completed Not Available Not Available Not Available gabapentin 1 tab bid 10/29 completed Not Available Not Available Not Available zinc sulfate 50 mg zinc (220 mg) capsule TAKE 1 CAPSULE BY MOUTH DAILY 03/07 completed Not Available Not Available Not Available ferrous gluconate 324 mg (38 mg iron) tablet TAKE 1 TABLET BY MOUTH 2 TIMES PER DAY WITH WATER OR JUICE BETWEEN MEALS active Not Available Not Available No t Available cholecalci ferol (vitamin D3) 1,250 mcg (50,000 unit) capsule TAKE 1 CAPSULE BY MOUTH MONTHLY 03/07 completed Not Available Not Available Not Available oxycodone 10 mg tablet TAKE 1 TABLET BY MOUTH TWICE DAILY FOR CHRONIC PAIN active Not Available Not Available No t Available Se-Quan 19 Chewable daily 01/27 completed Not Available Not Available Not Available desoximeta sone 0.05 % topical ointment APPLY 3- 4 TIMES DAILY 08/25 completed Not Available Not Available Not Available Xarelto 10 mg tablet Take 1.5 tablets every other day by oral route as directed . 11/05 completed Not Available Not Available Not Available Xarelto 20 mg tablet TAKE 1 TABLET BY MOUTH DAILY WITH FOOD active Not Available Not Available No t Available lidocaine 5 % topical ointment APPLY 3-4 TIMES DAILY 08/25 completed Not Available Not Available Not Available Trulicity 0.75 mg/0.5 mL subcutaneo us pen injector ADMINIST ER 0.75 MG UNDER THE SKIN WEEKLY FOR WEIGHT LOSS active Not Available Not Available No t Available Afluria Qd 2019- (36 mos up)(PF)60 mcg (15 mcg x4)/0.5 mL IM syringe ADM 0.5ML IM UTD 08/25 completed Not Available Not Available Not Available Vitals Date Recorded Body height Body mass index (BMI) Body weight Oxygen saturation Oxygen saturation in Arterial blood by Pulse oximetry Heart rate Systolic blood pressure Diastolic blood pressure Provider Name and Address Organization Details Last Updated DateTime 1 175.26 cm 34 kg/m2 568581. 25 g 98 % 98 % 52 /min 110 mm[Hg] 72 mm[Hg] RONEN MORENO [place] - [facility] 1 12:06:42 Date Recorded Body height Body mass index (BMI) Body weight Oxygen saturation Oxygen saturation in Arterial blood by Pulse oximetry Heart rate Systolic blood pressure Diastolic blood pressure Provider Name and Address Organization Details Last Updated DateTime 2 175.26 cm 32.1 kg/m2 22441.3 4 g 98 % 98 % 69 /min 118 mm[Hg] 60 mm[Hg] PAYTON ALFARO [facility] 2 12:02:09 Date Recorded Body height Body mass index (BMI) Body weight Heart rate Respiratory rate Oxygen saturation Oxygen saturation in Arterial blood by Pulse oximetry Systolic blood pressure Diastolic blood pressure Provider Name and Address Organization Details Last Updated DateTime 3 175.26 cm 26.3 kg/m2 73400.4 4 g 72 /min 16 /min 98 % 98 % 124 mm[Hg] 78 mm[Hg] Wero Solitario [facility] 3 15:52:16 Date Recorded Body height Body mass index (BMI) Body weight Heart rate Respiratory rate Oxygen saturation Oxygen saturation in Arterial blood by Pulse oximetry Systolic blood pressure Diastolic blood pressure Provider Name and Address Organization Details Last Updated DateTime 3 175.26 cm 26.6 kg/m2 51661.6 3 g 72 /min 16 /min 98 % 98 % 124 mm[Hg] 82 mm[Hg] Wero Solitario [facility] 3 14:35:03 Date Recorded Body height Body mass index (BMI) Body weight Heart rate Oxygen saturation Oxygen saturation in Arterial blood by Pulse oximetry Systolic blood pressure Diastolic blood pressure Provider Name and Address Organization Details Last Updated DateTime 3 175.26 cm 25.3 kg/m2 38807.3 g 66 /min 98 % 98 % 100 mm[Hg] 65 mm[Hg] Meredith Figueroa [facility] 3 10:21:32 Social History Question Answer Notes LastModified by Organizat ion Details LastModified Time Tobacco Smoking Status Former Smoker quit in 1979 Julissa baron [facility] 09/24/2016 10:26:39 What Is Your Level Of Alcohol Consumption? None [email or web address] Information not available 09/24/2016 What Is Your Level Of Caffeine Consumption? Heavy [email or web address] Information not available 09/24/2016 How Much Tobacco Do You Chew? None [email or web address] Information not available 09/24/2016 What Type Of Diet Are You Following? REGULAR [email or web address] Information not available 09/24/2016 Which Illicit Or Recreational Drugs Have You Used? No Information not available 09/24/2016 Do You Or Have You Ever Used E-cigarettes Or Vape? Never Used Electronic Cigarettes Information not available 07/06/2020 Live Alone Or With Others? With Others [email or web address] Information not available 09/24/2016 Marital Status [email or web address] Informatio n not available 09/24/2016 What Was The Date Of Your Most Recent Tobacco Screening? 04/14/2018 Information not available 01/21/2019 How Many Children Do You Have? 2 [email or web address] Information not available 09/24/2016 Do You Or Have You Ever Used Smokeless Tobacco? Former Smokeless Tobacco User Information not available 07/06/2020 General Stress Level Medium [email or web address] Information not available 09/24/2016 Sex: Unknown Functional Status Question Answer Note LastModified by Organizat ion Details LastModified Time What is your exercise level? Occasional [email or web address] Information not available 09/24/2016 Mental Status None recorded. Family History Relationship Description Onset Age of this Age Resolved Age Notes LastModified by Organization Details LastModified Time Mother Heart disease [email or web address] Not available 2016 10:25:52 Mother Diabetes mellitus [email or web address] Not available 2016 10:26:02 Medical History Condition Response Peripheral Arterial Disease Y Hyperlipidemia Y Deep Vein Thrombosis Y Stroke Y Blood Clot Y Gynecological HistoryNo gynecological history recorded. Obstetrics History GPAL:G 0 P 0 0 0 0 Past Encounters Encounter ID Performer Location Encounter Start Date Encounter Closed Date Diagnosis/Indication Diagnosis SNOMED-CT Code Diagnosis ICD10 Code Diagnosis Note [id number] Kishore Gonzalez MD [facility] [address] [place] [address] 09/24/2016 10:02:04 09/24/2016 12:03:04 Atypical chest pain 952565247 R07.89 Treadmill Myoview Stress test, has high [place] Risk score. Has Known CAD, or CAD risk equivalent . To look for any ischemia. History of pulmonary embolus 783365578 Z86.711 on xarelto Peripheral arterial occlusive disease 470921663 I73.9 Arterial Dul[place] Deep venou s thrombosis 328697809 I82.409 Dyslipidemia 968743855 E 78.5 Needs to keep LDL less than 70, and HDL more than 40Will [place] [id number] Kishore Gonzalez MD [place] [facility] [place] [address] 10/11/2016 10:59:44 10/11/2016 14:41:29 Edema of lower extremity 392830914 R60.0 Atypical chest pain 1025 48462 R07.89 Treadmill Myoview Stress test, has high Salem Risk score. Has Known CAD, or CAD risk equivalent . To look for any ischemia. History of pulmonary embolus 651643580 Z86.711 on xarelto Peripheral arterial occlusive disease 815835918 I73.9 Mild Deep venou s thrombosis 476562544 I82.409 With abnormal dopplerWil l arrange for venogram and IVUS Dyslipidemia 664940845 E 78.5 Needs to keep LDL less than 70, and HDL more than 40Will [place] [id number] Kishore Gonzalez MD [place] [facility] [place] [address] 10/22/2016 09:36:11 10/22/2016 14:06:08 Deep venous thrombosis 429389319 I82.409 With abnormal dopplerWil l arrange for venogram and IVUS Edema of l ower extremity 925959423 R60.0 Atypical chest pain 1025 65746 R07.89 Treadmill Myoview Stress test, has high [place] Risk score. Has Known CAD, or CAD risk equivalent . To look for any ischemia. History of pulmonary embolus 481388423 Z86.711 on xarelto Peripheral arterial occlusive disease 855786317 I73.9 Mild Dyslipidemia 868847464 E 78.5 Needs to keep LDL less than 70, and HDL more than 40Will get fating lipids for follow up Venous ins ufficiency of leg 015224704 I87.2 Will plan bid venous stents I spent times with her to discuss the finding and the plan including possible damage to the filter I answered all her questions She needs to stay on Xarelto [id number] Kishore Gonzalez MD [place] [facility] [place] [address] 11/05/2016 09:30:18 11/05/2016 12:11:07 Dyslipidemia 063998890 E78.5 Needs to keep LDL less than 70, and HDL more than 40Will get fating lipids for follow up Deep venou s thrombosis 371775215 I82.409 With abnormal dopplerWil l arrange for venogram and IVUS Edema of l ower extremity 073471301 R60.0 Atypical chest pain 1025 46290 R07.89 Treadmill Myoview Stress test, has high [place] Risk score. Has Known CAD, or CAD risk equivalent . To look for any ischemia. Venous ins ufficiency of leg 227202743 I87.2 s/p brady iliac venous stents She needs to stay on Xarelto History of pulmonary embolus 376887959 Z86.711 on xarelto [id number] Kishore Gonzalez MD [place] [facility] [place] [address] 12/17/2016 10:42:52 12/17/2016 19:04:27 Dyslipidemia 383447661 E78.5 Needs to keep LDL less than 70, and HDL more than 40Will get fating lipids for follow up Deep venou s thrombosis 175638799 I82.409 With abnormal doppler, FU duplex Edema of l ower extremity 150565592 R60.0 Atypical chest pain 1025 33364 R07.89 resolved Venous ins ufficiency of leg 781695523 I87.2 s/p brady iliac venous stents She needs to stay on Xarelto History of pulmonary embolus 290166568 Z86.711 on xarelto Peripheral arterial occlusive disease 782047445 I73.9 Mild Cerebrovas cular accident 955135863 I63.9 Ulcer of foot 73083389 L 97.909 [id number] Kishore Gonzalez MD [place] [facility] [place] [address] 03/11/2017 09:27:46 03/11/2017 14:52:53 Dyslipidemia 211069618 E78.5 Needs to keep LDL less than 70, and HDL more than 40Will get fating lipids for follow up Deep venou s thrombosis 742170467 I82.409 With abnormal doppler, FU duplex Atypical chest pain 1025 72728 R07.89 resolved Venous ins ufficiency of leg 992147183 I87.2 s/p brady iliac venous stents She needs to stay on Xarelto History of pulmonary embolus 059145765 Z86.711 on xarelto Peripheral arterial occlusive disease 046698442 I73.9 Mild Cerebrovas cular accident 243634469 I63.9 Ulcer of foot 49414096 L 97.909 Will arrange for pharmacognosist vein EVLT Edema of l ower extremity 913384725 R60.0 [id number] Kishore Gonzalez MD [place] [facility] [place] [address] 04/08/2017 09:47:01 04/08/2017 11:34:45 Dyslipidemia 830762408 E78.5 Needs to keep LDL less than 70, and HDL more than 40Will get fating lipids for follow up 09-26-2016 LDL 73 Deep venou s thrombosis 232315413 I82.409 With abnormal doppler US, DUPLEX, LOWER EXTREMITY 10/02/16 : No signficant PVD. Atypical chest pain 1025 25012 R07.89 resolved Venous ins ufficiency of leg 276669937 I87.2 s/p brady iliac venous stents She needs to stay on Xarelto History of pulmonary embolus 954778230 Z86.711 on xarelto Peripheral arterial occlusive disease 078443744 I73.9 Mild Cerebrovas cular accident 662954643 I63.9 Ulcer of foot 21617262 L 97.909 Will arrange for pharmacognosist vein EVLT Edema of l ower extremity 508449269 R60.0 Fluttering heart 0972916 04 R00.2 [id number] Mary Ann Hager [place] [facility] [address] [place] [address] 05/20/2017 13:43:34 05/20/2017 17:30:42 Venous insufficiency of leg 494377704 I87.2 s/p brady iliac venous stents She needs to stay on Xarelto Dyslipidemia 118232264 E 78.5 Needs to keep LDL less than 70, and HDL more than 40Will get fating lipids for follow up 09-26-2016 LDL 73 Deep venou s thrombosis 085815865 I82.409 With abnormal doppler US, DUPLEX, LOWER EXTREMITY 10/02/16 : No signficant PVD. History of pulmonary embolus 417173564 Z86.711 on xarelto Peripheral arterial occlusive disease 307711663 I73.9 Mild Ulcer of foot 05371802 L 97.909 Pt sent to ER for evaluation by Ortho and IV Antibiotic s. [id number] Kishore Gonzalez MD [facility] [address] [place] [address] 01/27/2018 09:46:10 02/12/2018 17:15:10 Venous insufficiency of leg 588373775 I87.2 s/p brady iliac venous stents She needs to stay on Xarelto Venous reflux and Duplex Will need EVLT or sclerother apy for pharmacognosist vein close to ulcer left leg first Dyslipidemia 559141815 E 78.5 Needs to keep LDL less than 70, and HDL more than 40Will get fating lipids for follow up 09-26-2016 LDL 73 Deep venou s thrombosis 380053206 I82.409 With abnormal doppler US, DUPLEX, LOWER EXTREMITY History of pulmonary embolus 147577552 Z86.711 On xarelto Peripheral arterial occlusive disease 312256425 I73.9 Mild Chronic ulcer of skin 19 240704 L98.499 She has a chronic ulcer to her left lower leg and right posterior lower leg. EVLT [place] pharmac[place]osist [place] [id number] [facility] [place] [facility] [address] [place] [address] 02/16/2018 14:17:08 02/16/2018 15:30:54 Edema of lower extremity 019677327 R60.0 Bilateral chronic leg ulcers above medial malleolus bilaterall y reported for 7 years? pharmacognosist vein close to ulcer on the left on duplex a year agoDuplex veins: DVT studyReflu x vein study bilaterall yPlain x ray tibia and fibula bilaterall y.to r/o osteomyeli tis.Plasti c surgery for possible skin grafting and biopsy form ulcer edges to rule out maliganant transforma tion. Venous ins ufficiency of leg [id number] I87.2 s/p brady iliac venous stents She needs to stay on Xarelto Venous reflux and Duplex Will need EVLT or sclerother apy for pharmacognosist vein close to ulcer left leg first Dyslipidemia 272032575 E 78.5 Needs to keep LDL less than 70, and HDL more than 40Will get fating lipids for follow up 09-26-2016 LDL 73 Deep venou s thrombosis 553767474 I82.409 With abnormal doppler US, DUPLEX, LOWER EXTREMITY History of pulmonary embolus 347025214 Z86.711 On xarelto Peripheral arterial occlusive disease 117235017 I73.9 Mild Chronic ulcer of skin 19 467095 L98.499 She has a chronic ulcer to her left lower leg and right posterior lower leg. EVLT to pharmacognosist vein Cerebrovas cular accident 692766452 I63.9 [id number] Kishore Gonzalez MD [place] [facility] [place] [address] 04/14/2018 10:44:26 04/15/2018 02:16:07 Edema of lower extremity 026441112 R60.0 Bilateral chronic leg ulcers above medial malleolus bilaterall y reported for 7 years ? pharmacognosist vein close to ulcer on the left on duplex a year ago. Duplex veins: DVT study Reflux vein study bilaterall y Chronic ulcer of skin 19 465533 L98.499 She has a chronic ulcer to her left lower leg and right posterior lower leg. Venous ins ufficiency of leg 143563757 I87.2 s/p brady iliac venous stents She needs to stay on Xarelto Venous reflux and Duplex Will need EVLT or sclerother apy for pharmacognosist vein close to ulcer left leg first Dyslipidemia 188665089 E 78.5 Needs to keep LDL less than 70, and HDL more than 40Will get fating lipids for follow up 09-26-2016 LDL 73 Deep venou s thrombosis 737170784 I82.409 With abnormal doppler US, DUPLEX, LOWER EXTREMITY FU today, R/O DVT History of pulmonary embolus 585408743 Z86.711 On xarelto Peripheral arterial occlusive disease 004448599 I73.9 Mild Cerebrovas cular accident 247330271 I63.9 Contusion of lower leg 43671490 S80.10XA Small petechial bruising to bilateral lower legs. She is on Xarelto and Full Dose ASA Chronic osteomyelitis 40 536881 M86.60 treatment and evaluation by primary care doctor [id number] Kishore Gonzalez MD [place] [facility] [place] [address] 09/29/2018 14:47:13 09/29/2018 16:08:47 Edema of lower extremity 723779431 R60.0 Bilateral chronic leg ulcers above medial malleolus bilaterall y reported for 7 years On Lasix daily. Chronic ulcer of skin 19 666107 L98.499 Is getting better now Venous ins ufficiency of leg 424520158 I87.2 s/p brady iliac venous stents She needs to stay on Xarelto complete 04-14-2018 Had venous doppler on 04/14/18: Negative right-side d venous Doppler study. Limited imaging of right calf veins. Reflex is noted in right popliteal vein. Dyslipidemia 947865063 E 78.5 Needs to keep LDL less than 70, and HDL more than 40Will get fating lipids for follow up 09-26-2016 LDL 73 Deep venou s thrombosis 773821796 I82.409 Had venous doppler on 04/14/18: Negative right-side d venous Doppler study. Limited imaging of right calf veins. Reflex is noted in right popliteal vein. History of pulmonary embolus 296259647 Z86.711 On xarelto Peripheral arterial occlusive disease 749490821 I73.9 Mild Cerebrovas cular accident 283364259 I63.9 at 20 years of age. She was on control at the time and was smoking as well. [id number] Kisha Masterson [facility] OFFICE [facility] [place] [address] 08/25/2020 09:58:27 08/25/2020 20:39:45 Venous insufficiency of leg 412395952 I87.2 s/p bilateral iliac venous stents ( 7) on Xarelto Venous reflux 04/14/2018 : Negative right-side d venous Doppler study. Limited imaging of right calf veins. Reflex is noted in right popliteal vein. Will repeat venous reflux Chronic ulcer of skin 19 019877 L98.499 Follows with wound clinic and vascular surgery (Dr. Jiménez) Edema of l ower extremity 117203349 R60.0 As aboveConti nue Lasix, low salt diet, and leg elevationO btain echo to evaluate for structural /functiona l disease Dyslipidemia 099994511 E 78.5 Needs to keep LDL less than 70, and HDL more than 40. 018 LDL 69Currentl y not on statin therapy Will get fasting lipids for follow-up Deep venou s thrombosis 769952470 I82.409 As above on Xarelto History of pulmonary embolus 328362998 Z86.711 on Xarelto Cerebrovas cular accident 849688028 I63.9 at 20 years of age without recurrence She was on control at the time as well as smoking. Dyspnea on exertion 6084 5006 R06.09 Lexiscan Myoview stress test, pt can not walk. Has known coronary artery disease, with atypical symptoms now [id number] Migdalia Garcia [place] [facility] [address] [place] [address] 12/22/2020 11:09:57 12/22/2020 11:54:14 Venous insufficiency of leg 301836444 I87.2 s/p bilateral iliac venous stents ( 7) on Xarelto Venous reflux 04/14/2018 : Negative right-side d venous Doppler study. Limited imaging of right calf veins. Reflex is noted in right popliteal vein. 11/10/20 VENOUS REFLUX Severe left sided reflux disease noted. Chronic ulcer of skin 19 799856 L98.499 Follows with wound clinic and vascular surgery (Dr. Jiménez) Edema of l ower extremity 020292901 R60.0 As aboveConti nue Lasix, low salt diet, and leg elevationO btain echo to evaluate for structural /functiona l disease Dyslipidemia 924393705 E 78.5 Needs to keep LDL less than 70, and HDL more than 40. 1:TC 146,TG 54,HDL 86,LDL 48.Current ly not on statin therapyWil l get fasting lipids for follow-up Deep venou s thrombosis 382340747 I82.409 As aboveon Xarelto History of pulmonary embolus 730682330 Z86.711 on Xarelto Cerebrovas cular accident 625737345 I63.9 at 20 years of age without recurrence She was on control at the time as well as smoking. Dyspnea on exertion 6084 5006 R06.09 Brinda negative 09/2020 Iliac vein compression syndrome 205993885 I87.1 Consider repeating IVUS 1 VENOUS REFLUX Severe left sided reflux disease noted. [id number] Kishore Gonzalez MD [place] [facility] [address] [place] [address] 06/08/2021 11:19:19 06/08/2021 12:27:42 Venous insufficiency of leg 856789991 I87.2 s/p bilateral iliac venous stents ( 7) on Xarelto Venous reflux 04/14/2018 : Negative right-side d venous Doppler study. Limited imaging of right calf veins. Reflex is noted in right popliteal vein. 11/10/20 VENOUS REFLUX Severe left sided reflux disease noted. Chronic ulcer of skin 19 474032 L98.499 Follows with wound clinic and vascular surgery (Dr. Jiménez) Edema of l ower extremity 122690711 R60.0 As aboveConti nue Lasix, low salt diet, and leg elevationO btain echo to evaluate for structural /functiona l disease Dyslipidemia 341234290 E 78.5 Needs to keep LDL less than 70, and HDL more than 40. 1:TC 146,TG 54,HDL 86,LDL 48.Current ly not on statin therapyWil l get fasting lipids for follow-up Deep venou s thrombosis 846957724 I82.409 As aboveon Xarelto History of pulmonary embolus 276721697 Z86.711 on Xarelto Cerebrovas cular accident 841659271 I63.9 at 20 years of age without recurrence She was on control at the time as well as smoking. Dyspnea on exertion 6084 5006 R06.09 Brinda negative 09/2020 Iliac vein compression syndrome 110323997 I87.1 Consider repeating IVUS 1 VENOUS REFLUX Severe left sided reflux disease noted. Pre-surger y evaluation 901971227 Z01.818 There is no cardiac contraindi cation for the procedure. The planned procedure would be within acceptable risk. {{ Patient may stop taking aspirin and Plavix five (5) days prior to the procedure. Patient may stop taking Xarelto for 2days prior to the procedure. #}} [id number] Kishore Gonzalez MD [place] [facility] [address] [place] [address] 01/18/2022 11:41:11 01/18/2022 12:37:36 Venous insufficiency of leg 587923673 I87.2 s/p bilateral iliac venous stents ( 7) on Xarelto Venous reflux 04/14/2018 : Negative right-side d venous Doppler study. Limited imaging of right calf veins. Reflex is noted in right popliteal vein. 11/10/20 VENOUS REFLUX Severe left sided reflux disease noted. Chronic ulcer of skin 19 522076 L98.499 Has improved but not resolved completely .Calcium of 11.4.Concepción nue to follow with wound clinic and vascular surgery (Dr. Jiménez) Edema of l ower extremity 791127501 R60.0 As aboveConti nue Lasix, low salt diet, and leg elevationO btain echo to evaluate for structural /functiona l disease Dyslipidemia 164966493 E 78.5 Needs to keep LDL less than 70, and HDL more than 40. 1:TC 146,TG 54,HDL 86,LDL 48.Current ly not on statin therapyWil l get fasting lipids for follow-up Deep venou s thrombosis 973975652 I82.409 As aboveon Xarelto History of pulmonary embolus 371566680 Z86.711 on Xarelto Cerebrovas cular accident 108675913 I63.9 at 20 years of age without recurrence She was on control at the time as well as smoking. Dyspnea on exertion 6084 5006 R06.09 Brinda negative 09/2020 Iliac vein compression syndrome 671361385 I87.1 Venous duplex and reflux studyCompr ession stockings trial 11/10/20 VENOUS REFLUX Severe left sided reflux disease noted. [id number] Kishore Gonzalez MD [place] [facility] [place] [address] 09/05/2022 15:39:06 09/05/2022 16:47:21 Venous insufficiency of leg 968772397 I87.2 s/p bilateral iliac venous stents ( 7) on Xarelto Venous reflux 04/14/2018 : Negative right-side d venous Doppler study. Limited imaging of right calf veins. Reflex is noted in right popliteal vein. Chronic ulcer of skin 19 993081 L98.499 Resolved Edema of l ower extremity 533663854 R60.0 As aboveConti nue Lasix, low salt diet, and leg elevationO btain echo to evaluate for structural /functiona l disease Dyslipidemia 869897183 E 78.5 Needs to keep LDL less than 70, and HDL more than 40. 1:TC 146,TG 54,HDL 86,LDL 48.Current ly not on statin therapyWil l get fasting lipids for follow-up Deep venou s thrombosis 194349577 I82.409 As aboveon Xarelto History of pulmonary embolus 323604773 Z86.711 on Xarelto Cerebrovas cular accident 855803367 I63.9 at 20 years of age without recurrence She was on control at the time as well as smoking. Dyspnea on exertion 6084 5006 R06.09 Brinda negative 09/2020 Iliac vein compression syndrome 476101933 I87.1 Venous duplex and reflux studyCompr ession stockings trial 11/10/20 VENOUS REFLUX Severe left sided reflux disease noted. [id number] Kishore Gonzalez MD [place] [facility] [address] [place] [address] 09/17/2022 14:08:58 09/17/2022 15:13:19 Venous insufficiency of leg 442993968 I87.2 s/p bilateral iliac venous stents ( 7) on Xarelto Venous reflux 04/14/2018 : Negative right-side d venous Doppler study. Limited imaging of right calf veins. Reflex is noted in right popliteal vein. Chronic ulcer of skin 19 093394 L98.499 Resolved Edema of l ower extremity 023130479 R60.0 As aboveConti nue Lasix, low salt diet, and leg elevation Dyslipidemia 217593614 E 78.5 Needs to keep LDL less than 70, and HDL more than 40. 1:TC 146,TG 54,HDL 86,LDL 48.Current ly not on statin therapyWil l get fasting lipids for follow-up Deep venou s thrombosis 986475793 I82.409 As aboveon Xarelto History of pulmonary embolus 364108832 Z86.711 on Xarelto Cerebrovas cular accident 464750987 I63.9 at 20 years of age without recurrence She was on control at the time as well as smoking. Dyspnea on exertion 6084 5006 R06.09 Brinda negative 09/2020 Iliac vein compression syndrome 613362394 I87.1 Venous duplex and reflux studyCompr ession stockings trial 11/10/20 VENOUS REFLUX Severe left sided reflux disease noted. [id number] Tatyana Jaime [place] [facility] [address] [place] [address] 03/07/2023 10:04:02 12/31/2023 13:17:14 Health Concerns Section Related Observation LastModified by Organization Detai ls LastModified Time None Recorded Concern Status LastModified by Organization Details LastModified Time None Recorded Advance Directives Directive None Recorded Payers Encounter Date Sequence Insurance Name Policy Number Policy Payne Covered Member ID Payne Member ID Guarantor Name 06/08/2021 1 [employer] (MEDICARE REPLACEMENT/AD VANTAGE - HMO) Racquel South Hero [id number] Racquel South Hero 01/18/2022 1 [employer]AGE - [facility] (MEDICARE REPLACEMENT PPO) [id number] Racquel South Hero [id number] Racquel South Hero 09/05/2022 1 [facility] (MEDICARE REPLACEMENT HMO) Racquel South Hero [id number] Racquel South Hero 09/17/2022 1 [facility] (MEDICARE REPLACEMENT HMO) Racquel South Hero [id number] Racquel South Hero 03/07/2023 1 [facility] (MEDICARE REPLACEMENT HMO) Racquel South Hero [id number] Racquel South Hero Notes Date Note Type Note Provider Name and Address Organization Details Recorded Time 06/08/2021 text/html 06/08/21CC : Car diac follow up, .leg [id number] white woman with a PMH of PE and DVT, venous insufficiency s/p bilateral venous iliac stents 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 Denies chest pain.Denies shortness of breath at rest. Has mild dyspnea on exertion.No orthopnea. No PNDs.Denies heart palpitations.Denies dizziness. Denies syncope or near syncope.No ankle or leg edema.No major bleeding events.No reported side effects from medications. Taking medications as prescribed with no missed doses.Denies snoring, daytime somnolence and AM headache.*Last LDL was 48 done on 09/03/20 .Pt dose not takes any statins. Previously:She had a fall after tripping and falling at her home. She denies dizziness/lightheadedn ess and syncope. She remains on Xarelto for history of DVT and PE. She continues to have bilateral lower extremity wounds. She continues to follow with wound clinic and Dr. Jiménez with vascular surgery. She has significant reflux and venous ulcer, not healing for the past several years as noted above. She had venous IVUS, with bilateral stenosis, but has a filter close to the bifurcation. *Had negative stress test done in 10/07/16 with normal LV systolic function , EF 67% . *Had ECHO done in 10/04/16 showed normal LV systolic function , moderate LVH , EF 70-75% , Left atrium chamber is mildly dilated and mitral valve leaflet is mildly thickened.Results from this visit, or from the past:04/14/18: Na 139 , K 3.5 , CL 95 ,CO2 25, GLU 89 , BUN 11, CR 0.70, LDL 69 ,AST 26 ,ALT 17,HB 13.5, HT 39.6, PT 11.1, INR 1.1 04/14/18: PT 11.1 , INR 1.1 , HB 13.5 ,HT 39.6 02/05/18: TC 153 ,TG 52, HDL 74 ,LDL 69, 10/24/16:NA 143,K 4.3,CL 103,CO2 23,GLU 98,BUN 13,CR 0.61, ,Hgb 12.9,Ht 38.7, 10/11/16: Na 136 ,K 3.8 ,CL 100 ,CO2 30 ,GLU 115 ,BUN 12 ,CR 0.57, HB 14.1, HT 42.4, PT 10.4, INR 1.0 09/26/2016:NA 140,K 4.2,CL 100,CO2 26,GLU 94,BUN 16,CR 0.68,CK 48,AST 22,ALT 13,TC 175,TG 73,HDL-87,LDL 73 EKG 09/29/18 :Incomplete RBBB. Inverted T wave in aVL. EK04/14/18 Incomplete RBBB. Inverted T wave in aVL. Otherwise within normal sinus rhythm. EKG 01/27/2018: Incomplete rbbb EKG 03/11/17 : sinus rhythm. P: no analysis. QRS: RSR' in V2. ST-T: normal. Conclusion: normal variant of ECG EK12/17/16 Incomplete RBBB. EKG 09/24/16: sinus rhythm. P: no analysis. QRS: moderate intraventricular conduction delay. RSR' in V2. ST-T: normal. Conclusion: possibly abnormal ECG 10/16/20 ECHO There is borderline LV hypertrophy LV systolic function is normal The estimated left ventricle ejection fraction is 60-65% (normal) There is trivial aortic regurgitation There is no mitral regurgitation There is trace tricuspid regurgitation There is no pericardial effusion present. 11/10/20 VENOUS REFLUX Severe left sided reflux disease noted. 04/14/18-venous dop- Negative right-sided venous Doppler study. Limited imaging of right calf veins. Reflex is noted in right popliteal vein. US, duplex, venous, extremity, complete 03-05-2018 Negative bilateral venous study Lexiscan Cardiolite Stress Test 10/07/16 : Negative lexiscan stress test. Normal LV systolic function. Adequate stress with lexiscan. LVEF 67%. 10/04/16 ECHOCARDIOGRAM REPORT: LV chamber size is normal. There is moderate concentric LV hypertrophy. There is normal global systolic function and contractility. The estimated left ventricle ejection fraction is 70-75%(normal). LV relaxation is normal. Left atrium chamber is mildly dilated. The mitral valve leaflet is mildly thickened. venous mapping, lower extremity, complete 04-29-2017 : No significant reflux disease noted. Venous Mapping, Lower Extremity 12/24/16 : No signficant reflux disease noted. Angio Lower Extremity Bilateral: 10/31/16 Moderate stenosis of the common iliac veins with resolution after placement of stents. US, DUPLEX, LOWER EXTREMITY 10/02/16 : No significant PVD. Angiogram 10/16/16 : Very distal IVC filter close to the bifurcation. Bilateral severe common iliac vein disease with May-[place] disease with compression of both common iliac veins possibly due to arterial compression. The patient would benefit from angioplasty with stent placement to both iliac; however, due to the presence of the filter that is very close to the confluence, would have to plan possibly evaluate for possible removal of the filter if that is possible. If not, we have to plan with possibility of needing to stent through the filter. This will be arranged at another session. For the time being continue medical treatment with risk factor modification.. XR Bone 02/25/18: Periosteal reaction along the medial metadiaphyseal region of the distal left tibia underlying a deep ulceration which is concerning ostermyelitis. Relatively symmetric regions of more chronic appearing cortical thickening at the distal metadiaphyseal regions of the right tibia and fibula likely sequela for chronic osteomyelitis. 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 She was last seen in the clinic on 06/08/21, since then she still has leg leg venous ulcer. Pt has Calcium of 11.4.She denies ER visits and hospitalizations since she was last seen. Today reports:Occasional chest pain.Denies shortness of breath at rest. Has mild dyspnea on exertion.No orthopnea. No PNDs.Denies heart palpitations.Denies dizziness. Denies syncope or near syncope.No ankle or leg edema.No major bleeding events.No reported side effects from medications. Taking medications as prescribed with no missed doses.Denies snoring, daytime somnolence and AM headache.*Last LDL was 48 done on 09/03/20.Pt dose not takes any statins. Previously:She is getting leg procedure for the ulcer She had a fall after tripping and falling at her home. She denies dizziness/lightheadedn ess and syncope. She remains on Xarelto for history of DVT and PE. She continues to have bilateral lower extremity wounds. She continues to follow with wound clinic and Dr. Jiménez with vascular surgery. She has significant reflux and venous ulcer, not healing for the past several years as noted above. She had venous IVUS, with bilateral stenosis, but has a filter close to the bifurcation. *Had negative stress test done in 10/07/16 with normal LV systolic function , EF 67% . *Had ECHO done in 10/04/16 showed normal LV systolic function , moderate LVH , EF 70-75% , Left atrium chamber is mildly dilated and mitral valve leaflet is mildly thickened.Results from this visit, or from the past:04/14/18: Na 139 , K 3.5 , CL 95 ,CO2 25, GLU 89 , BUN 11, CR 0.70, LDL 69 ,AST 26 ,ALT 17,HB 13.5, HT 39.6, PT 11.1, INR 1.1 04/14/18: PT 11.1 , INR 1.1 , HB 13.5 ,HT 39.6 02/05/18: TC 153 ,TG 52, HDL 74 ,LDL 69, 10/24/16:NA 143,K 4.3,CL 103,CO2 23,GLU 98,BUN 13,CR 0.61, ,Hgb 12.9,Ht 38.7, 10/11/16: Na 136 ,K 3.8 ,CL 100 ,CO2 30 ,GLU 115 ,BUN 12 ,CR 0.57, HB 14.1, HT 42.4, PT 10.4, INR 1.0 09/26/2016:NA 140,K 4.2,CL 100,CO2 26,GLU 94,BUN 16,CR 0.68,CK 48,AST 22,ALT 13,TC 175,TG 73,HDL-87,LDL 73 EKG 09/29/18 :Incomplete RBBB. Inverted T wave in aVL. EK04/14/18 Incomplete RBBB. Inverted T wave in aVL. Otherwise within normal sinus rhythm. EKG 01/27/2018: Incomplete rbbb EKG 03/11/17 : sinus rhythm. P: no analysis. QRS: RSR' in V2. ST-T: normal. Conclusion: normal variant of ECG EK12/17/16 Incomplete RBBB. EKG 09/24/16: sinus rhythm. P: no analysis. QRS: moderate intraventricular conduction delay. RSR' in V2. ST-T: normal. Conclusion: possibly abnormal ECG 10/16/20 ECHO There is borderline LV hypertrophy LV systolic function is normal The estimated left ventricle ejection fraction is 60-65% (normal) There is trivial aortic regurgitation There is no mitral regurgitation There is trace tricuspid regurgitation There is no pericardial effusion present. 11/10/20 VENOUS REFLUX Severe left sided reflux disease noted. 04/14/18-venous dop- Negative right-sided venous Doppler study. Limited imaging of right calf veins. Reflex is noted in right popliteal vein. US, duplex, venous, extremity, complete 03-05-2018 Negative bilateral venous study Lexiscan Cardiolite Stress Test 10/07/16 : Negative lexiscan stress test. Normal LV systolic function. Adequate stress with lexiscan. LVEF 67%. 10/04/16 ECHOCARDIOGRAM REPORT: LV chamber size is normal. There is moderate concentric LV hypertrophy. There is normal global systolic function and contractility. The estimated left ventricle ejection fraction is 70-75%(normal). LV relaxation is normal. Left atrium chamber is mildly dilated. The mitral valve leaflet is mildly thickened. venous mapping, lower extremity, complete 04-29-2017 : No significant reflux disease noted. Venous Mapping, Lower Extremity 12/24/16 : No signficant reflux disease noted. Angio Lower Extremity Bilateral: 10/31/16 Moderate stenosis of the common iliac veins with resolution after placement of stents. US, DUPLEX, LOWER EXTREMITY 10/02/16 : No significant PVD. Angiogram 10/16/16 : Very distal IVC filter close to the bifurcation. 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 The patient would benefit from angioplasty with stent placement to both iliac; however, due to the presence of the filter that is very close to the confluence, would have to plan possibly evaluate for possible removal of the filter if that is possible. If not, we have to plan with possibility of needing to stent through the filter. This will be arranged at another session. For the time being continue medical treatment with risk factor modification.. XR Bone 02/25/18: Periosteal reaction along the medial metadiaphyseal region of the distal left tibia underlying a deep ulceration which is concerning ostermyelitis. Relatively symmetric regions of more chronic appearing cortical thickening at the distal metadiaphyseal regions of the right tibia and fibula likely sequela for chronic osteomyelitis. 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 Denies chest pain.Denies shortness of breath at rest. Has mild dyspnea on exertion.No orthopnea. No PNDs.Denies heart palpitations.Denies dizziness. Denies syncope or near syncope.No ankle or leg edema.No major bleeding events.No reported side effects from medications. Taking medications as prescribed with no missed doses.Denies snoring, daytime somnolence and AM headache.*Last LDL was 48 done on 09/03/20.Pt dose not takes any statins. She had a fall after tripping and falling at her home. She denies dizziness/lightheadedn ess and syncope. She remains on Xarelto for history of DVT and PE. She continues to have bilateral lower extremity wounds. She continues to follow with wound clinic and Dr. Jiménez with vascular surgery. She has significant reflux and venous ulcer, not healing for the past several years as noted above. She had venous IVUS, with bilateral stenosis, but has a filter close to the bifurcation. *Had negative stress test done in 10/07/16 with normal LV systolic function , EF 67% . *Had ECHO done in 10/04/16 showed normal LV systolic function , moderate LVH , EF 70-75% , Left atrium chamber is mildly dilated and mitral valve leaflet is mildly thickened.Results from this visit, or from the past:04/14/18: Na 139 , K 3.5 , CL 95 ,CO2 25, GLU 89 , BUN 11, CR 0.70, LDL 69 ,AST 26 ,ALT 17,HB 13.5, HT 39.6, PT 11.1, INR 1.1 04/14/18: PT 11.1 , INR 1.1 , HB 13.5 ,HT 39.6 08/09/18: TC 153 ,TG 52, HDL 74 ,LDL 69, 10/24/16:NA 143,K 4.3,CL 103,CO2 23,GLU 98,BUN 13,CR 0.61, ,Hgb 12.9,Ht 38.7, 10/11/16: Na 136 ,K 3.8 ,CL 100 ,CO2 30 ,GLU 115 ,BUN 12 ,CR 0.57, HB 14.1, HT 42.4, PT 10.4, INR 1.0 09/26/2016:NA 140,K 4.2,CL 100,CO2 26,GLU 94,BUN 16,CR 0.68,CK 48,AST 22,ALT 13,TC 175,TG 73,HDL-87,LDL 73 EKG 09/29/18 :Incomplete RBBB. Inverted T wave in aVL. EK04/14/18 Incomplete RBBB. Inverted T wave in aVL. Otherwise within normal sinus rhythm. EKG 01/27/2018: Incomplete rbbb EKG 03/11/17 : sinus rhythm. P: no analysis. QRS: RSR' in V2. ST-T: normal. Conclusion: normal variant of ECG EK12/17/16 Incomplete RBBB. EKG 09/24/16: sinus rhythm. P: no analysis. QRS: moderate intraventricular conduction delay. RSR' in V2. ST-T: normal. Conclusion: possibly abnormal ECG 10/16/20 ECHO There is borderline LV hypertrophy LV systolic function is normal The estimated left ventricle ejection fraction is 60-65% (normal) There is trivial aortic regurgitation There is no mitral regurgitation There is trace tricuspid regurgitation There is no pericardial effusion present. 11/10/20 VENOUS REFLUX Severe left sided reflux disease noted. 04/14/18-venous dop- Negative right-sided venous Doppler study. Limited imaging of right calf veins. Reflex is noted in right popliteal vein. US, duplex, venous, extremity, complete 03-05-2018 Negative bilateral venous study Lexiscan Cardiolite Stress Test 10/07/16 : Negative lexiscan stress test. Normal LV systolic function. Adequate stress with lexiscan. LVEF 67%. 10/04/16 ECHOCARDIOGRAM REPORT: LV chamber size is normal. There is moderate concentric LV hypertrophy. There is normal global systolic function and contractility. The estimated left ventricle ejection fraction is 70-75%(normal). LV relaxation is normal. Left atrium chamber is mildly dilated. The mitral valve leaflet is mildly thickened. venous mapping, lower extremity, complete 04-29-2017 : No significant reflux disease noted. Venous Mapping, Lower Extremity 12/24/16 : No signficant reflux disease noted. Angio Lower Extremity Bilateral: 10/31/16 Moderate stenosis of the common iliac veins with resolution after placement of stents. US, DUPLEX, LOWER EXTREMITY 10/02/16 : No significant PVD. Angiogram 10/16/16 : Very distal IVC filter close to the bifurcation. 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 The patient would benefit from angioplasty with stent placement to both iliac; however, due to the presence of the filter that is very close to the confluence, would have to plan possibly evaluate for possible removal of the filter if that is possible. If not, we have to plan with possibility of needing to stent through the filter. This will be arranged at another session. For the time being continue medical treatment with risk factor modification.. XR Bone 02/25/18: Periosteal reaction along the medial metadiaphyseal region of the distal left tibia underlying a deep ulceration which is concerning ostermyelitis. Relatively symmetric regions of more chronic appearing cortical thickening at the distal metadiaphyseal regions of the right tibia and fibula likely sequela for chronic osteomyelitis. 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 Has mild dyspnea on exertion.No orthopnea. No PNDs.Denies heart palpitations.Denies dizziness. Denies syncope or near syncope.No ankle or leg edema.No major bleeding events.No reported side effects from medications. Taking medications as prescribed with no missed doses.Denies snoring, daytime somnolence and AM headache.*Last LDL was 48 done on 09/03/20.Pt dose not takes any statins. She had a fall after tripping and falling at her home. She denies dizziness/lightheadedn ess and syncope. She remains on Xarelto for history of DVT and PE. She continues to have bilateral lower extremity wounds. She continues to follow with wound clinic and Dr. Jiménez with vascular surgery. She has significant reflux and venous ulcer, not healing for the past several years as noted above. She had venous IVUS, with bilateral stenosis, but has a filter close to the bifurcation. *Had negative stress test done in 10/07/16 with normal LV systolic function , EF 67% . *Had ECHO done in 10/04/16 showed normal LV systolic function , moderate LVH , EF 70-75% , Left atrium chamber is mildly dilated and mitral valve leaflet is mildly thickened.Results from this visit, or from the past:04/14/18: Na 139 , K 3.5 , CL 95 ,CO2 25, GLU 89 , BUN 11, CR 0.70, LDL 69 ,AST 26 ,ALT 17,HB 13.5, HT 39.6, PT 11.1, INR 1.1 04/14/18: PT 11.1 , INR 1.1 , HB 13.5 ,HT 39.6 02/05/18: TC 153 ,TG 52, HDL 74 ,LDL 69, 10/24/16:NA 143,K 4.3,CL 103,CO2 23,GLU 98,BUN 13,CR 0.61, ,Hgb 12.9,Ht 38.7, 10/11/16: Na 136 ,K 3.8 ,CL 100 ,CO2 30 ,GLU 115 ,BUN 12 ,CR 0.57, HB 14.1, HT 42.4, PT 10.4, INR 1.0 09/26/2016:NA 140,K 4.2,CL 100,CO2 26,GLU 94,BUN 16,CR 0.68,CK 48,AST 22,ALT 13,TC 175,TG 73,HDL-87,LDL 73 EKG 09/29/18 :Incomplete RBBB. Inverted T wave in aVL. EK04/14/18 Incomplete RBBB. Inverted T wave in aVL. Otherwise within normal sinus rhythm. EKG 01/27/2018: Incomplete rbbb EKG 03/11/17 : sinus rhythm. P: no analysis. QRS: RSR' in V2. ST-T: normal. Conclusion: normal variant of ECG EK12/17/16 Incomplete RBBB. EKG 09/24/16: sinus rhythm. P: no analysis. QRS: moderate intraventricular conduction delay. RSR' in V2. ST-T: normal. Conclusion: possibly abnormal ECG 10/16/20 ECHO There is borderline LV hypertrophy LV systolic function is normal The estimated left ventricle ejection fraction is 60-65% (normal) There is trivial aortic regurgitation There is no mitral regurgitation There is trace tricuspid regurgitation There is no pericardial effusion present. 11/10/20 VENOUS REFLUX Severe left sided reflux disease noted. 04/14/18-venous dop- Negative right-sided venous Doppler study. Limited imaging of right calf veins. Reflex is noted in right popliteal vein. US, duplex, venous, extremity, complete 03-05-2018 Negative bilateral venous study Lexiscan Cardiolite Stress Test 10/07/16 : Negative lexiscan stress test. Normal LV systolic function. Adequate stress with lexiscan. LVEF 67%. 10/04/16 ECHOCARDIOGRAM REPORT: LV chamber size is normal. There is moderate concentric LV hypertrophy. There is normal global systolic function and contractility. The estimated left ventricle ejection fraction is 70-75%(normal). LV relaxation is normal. Left atrium chamber is mildly dilated. The mitral valve leaflet is mildly thickened. venous mapping, lower extremity, complete 04-29-2017 : No significant reflux disease noted. Venous Mapping, Lower Extremity 12/24/16 : No signficant reflux disease noted. Angio Lower Extremity Bilateral: 10/31/16 Moderate stenosis of the common iliac veins with resolution after placement of stents. US, DUPLEX, LOWER EXTREMITY 10/02/16 : No significant PVD. Angiogram 10/16/16 : Very distal IVC filter close to the bifurcation. 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 The patient would benefit from angioplasty with stent placement to both iliac; however, due to the presence of the filter that is very close to the confluence, would have to plan possibly evaluate for possible removal of the filter if that is possible. If not, we have to plan with possibility of needing to stent through the filter. This will be arranged at another session. For the time being continue medical treatment with risk factor modification.. XR Bone 02/25/18: Periosteal reaction along the medial metadiaphyseal region of the distal left tibia underlying a deep ulceration which is concerning ostermyelitis. Relatively symmetric regions of more chronic appearing cortical thickening at the distal metadiaphyseal regions of the right tibia and fibula likely sequela for chronic osteomyelitis. 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 Kishore Gonzalez MD [address] [place], [address], [facility] 09/17/2022 15:10:39 03/07/2023 text/html no cc Tatyana Jaime [facility], [facility] 12/31/2023 13:17:13 OBGyn Episode No OBEpisode recorded.
--- OUTSIDE RECORDS SUMMARY | 2024-07-27 13:28 | XMS_ITS | Clinical Summary ---
Author Organization [facility] Address [facility]. [id number] Care Team Providers Care Bus Monitor Name Role Phone Nayely Singh MD Primary Care Provider [phone] Allergies No known active allergies Medications oxyCODONE immediate release (ROXICODONE) 10 MG immediate release tablet Take 1 tablet (10 mg total) by mouth. 05/18/2023 Active omeprazole (PRILOSEC) 20 MG capsule Take 1 capsule (20 mg total) by mouth daily. Active cyclobenzaprine (FLEXERIL) 10 MG tablet Take 1 tablet (10 mg total) by mouth 2 (two) times daily. Active furosemide (LASIX) 40 MG tablet Take 1 tablet (40 mg total) by mouth every morning. Active methadone (DOLOPHINE) 10 MG tablet Take 1 tablet (10 mg total) by mouth 2 (two) times daily. Active tolterodine (DETROL) 2 MG tablet Take 1 tablet (2 mg total) by mouth 2 (two) times daily. Active Active Problems Problem Noted Date Diagnosed Date Coronary artery disease invo lving [place] coronary artery of [place] heart without angina pectoris 05/23/2023 At high risk for malnutrition 04/24/2023 Overview (05/20/2023): Last Assessment & Plan: 04/24 advanced to regular diet yesterday, low volume intake, baseline nausea (symptoms controlled), add supplements, check nutrition labs (ordered) 04/25 Albumin 2, Prealbumin 5. Continued poor PO intake, pending fluoro guided JOHNNY RD consult for TF recs, calorie counts [...] Prealbumin 12 05/10 Albumin 1.9, Prealbumin 11 Retention of urine 04/23/2023 Overview (05/20/2023): Last Assessment & Plan: 04/22 mckeon removed, failed void trial x2 [...] bethanecol 04/30 passed void trial overnight, RESOLVED Acute pain 04/22/2023 Overview (05/20/2023): Last Assessment & Plan: 04/22 pain controlled with lidoderm patches and dilaudid IV PRN, passed SPECIAL SHOPPER eval today, liberalize to oral multimodal regimen 04/23-04/26 patient reports pain controlled 04/27-05/01 Pain controlled with PRN oxycodone and scheduled tylenol and gabapentin 05/02 Increased gabapentin 100 TID, started Robaxin 05/03 patient reports improved pain control 05/04 increase oxy dose given h/o opioid exposure 05/05- 05/11 improved pain control, minimal oxycodone use 05/16 Minimal oxycodone use, reduce to 5mg Q4H PRN 05/17: Reduced frequency of oxycodone from q4hour to q6 hour. In frequent use, pain controlled. Chronic nausea 04/22/2023 Overview (05/20/2023): Last Assessment & Plan: Patient reports symptoms controlled with CBD gummies - low threshold for marinol - zofran, compazine PRN 04/23 start marinol scheduled 04/24 symptoms controlled 04/27-present: No complaints of nausea. Dysphagia 04/22/2023 Overview (05/20/2023): Last Assessment & Plan: - 04/21 failed bedside swallow in ICU - 04/22 passed SPECIAL SHOPPER eval for reg/thin, assist with feeds iso L hemiplegia RESOLVED Esophageal thickening 04/22/2023 Overview (05/20/2023): Last Assessment & Plan: Incidental finding on OSH CT 04/18 PPI on discharge F/u PCP vs referral to GI for EGD ABLA (acute blood loss anemia) 04/22/2023 Overview (05/20/2023): Last Assessment & Plan: 04/22 hgb dropped post-op likely dilutional + [...] 8.4, HDS, continue xarelto stop daily labs Discharge planning issues 04/22/2023 Overview (05/20/2023): Last Assessment & Plan: 04/22 Reportedly patient presented to OSH from home, baseline function is relatively independent with spousal support and walker vs cane for mobility, case management investigating, anticipate some type of placement when medically stable, PT/OT ordered 04/23 PT recs for inpatient rehab, trimming caser notified, ADD 04/25 04/24 patient agreeable to short term IPR placement in [place], [place] area -- case management aware, [facility] denied [facility] for medical reasons[facility], [facility] --- additional discussions with [...] assisted evaluation of identified L iliac vein in- stent thrombus F/u [facility] for wound check and staple removal DAKOTA (acute kidney injury) 04/20/2023 Overview (05/20/2023): Last Assessment & Plan: DAKOTA likely due to hypovolemia and sepsis 04/20: Low UOP, BUN 45 (37), Cr 1.31 (0.89). Continue management per ICU. 04/22 sCr NL, UOP 1225cc/24h, lytes NL RESOLVED Shock (CMS/HCC HHS/HCC) 04/20/2023 Overview (05/20/2023): Last Assessment & Plan: Hypovolemic vs Septic etiology, favor sepsis 04/19: [...] -- RESOLVED Persistent nodularity of breast 04/19/2023 Overview (05/20/2023): Last Assessment & Plan: Incidental finding on OSH CT 04/18 -f/u [employer] IN[employer]UMENT [employer]SEMBLER vs PCP for outpatient mammography Strangulated ventral hernia 04/19/2023 Overview (05/20/2023): Last Assessment & Plan: See small bowel obstruction Small bowel obstruction (CMS/HCC HHS/HCC) 2022 Overview (05/20/2023): Last Assessment & Plan: 04/[address] A/P: 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 SBO r/t parastomal hernia incarceration. --- transferred to [facility] for higher level of care 04/19 OR (Bre/Ronald) - Ex Lap, ANTONETTE, serosal repair x4, reduction of internal hernia, re-do end ileostomy with maturation , RLQ CRISTIANO 04/19 POD 0. 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 Abscess of right buttock 02/28/2021 Superficial ulcer of lower extremity ([facility] S/HCC) 11/17/2018 S/P IVC filter 12/25/2016 Venous insufficiency of leg 12/12/2016 Brain aneurysm ([facility]) 11/25/[address] ([facility]) 11/25/2016 H/O colectomy 11/25/2016 History of heart artery stent 11/25/2016 History of seizures 11/25/2016 History of cerebrovascular accident 11/22/2016 Ulcer of left ankle ([facility]) 11/22/2016 Deep vein thrombosis ([facility]) 7 Overview (05/20/2023): Last Assessment & Plan: DVT (2012, on Xarelto, IVC filter) -Last [...] WTD Dyslipidemia 10/19/2016 Peripheral arterial occlusive disease 10/19/2016 Cerebrovascular accident ([facility]) 09/24 Overview (05/20/2023): Last Assessment & Plan: 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 -Home regimen: ASA, xarelto -heparin gtt --> therapeutic lovenox, asa resumed 04/24 , xarelto resumed 04/30 Neuro exam stable and L hemiparesis per baseline, lovenox adjusted based on antiXa, plan to discharge on Xarelto, 04/25 new headache - CT obtained - NAICP Chest pain 09/24/2016 Cough 09/24/2016 Dizziness 09/24/2016 Fluttering heart 09/24/2016 Pain in joint 09/24/2016 Seizure ([facility]) 09/24/2016 Overview (05/20/2023): Last Assessment & Plan: Reports being discontinued from the tegretol for several years, and that she now controls seizures with CBD gummies - low threshold for marinol - last seizure: 1988 - seizure precautions 04/23 start marinol --- no plan to continue marinol on discharge, f/u with PCP Edema of lower extremity 09/24/2016 Resolved Problems Problem Noted Date Diagnosed Date Resolved Date Encounter for preventive health examination 11/18/2016 05/26/2023 Encounters Date Type Department Care Team Description 05/03/2024 Telephone [facility] [place], [address] [address] Idania Elizabeth, A Appointment Request (Self ref) from Last 3 Months Immunizations Name Administration Dates Next Due Influenza Adult (Generic) 04/23/2022,03/17/2020 MODERNA COVID-19 (12+) MRNA, LNP-S, PF, 100 MCG/ 0.5 ML DOSE 01/02/2021 MODERNA COVID-19 ([employer] RON CHRIS), MRNA, LNP-S, PF, 50 MCG/ 0.25 ML DOSE 08/04/2021 Pneumococcal (Pneumovax 23) 03/17/2020 Pneumococcal (Prevnar 20) 04/23/2022 Shingrix 07/25/2022 Tdap (Generic) 04/03/2022 Social History Tobacco Use Types Packs/Day Years Used Date Smoking Tobacco: Never Smokeless Tobacco: Never Tobacco Cessation:Counseling Given: No Alcohol Use Standard Drinks/Week Comments Not Currently 0 (1 standard drink = 0.6 oz pur e alcohol) Comments No Sex and Gender Information Value Date Recorded Sex Assigned at Not on file Legal Sex Female 4:12 PM CDT Gender Identity Not on file Sexual Orientation Not on file Last Filed Vital Signs Vital Sign Reading Time Taken Comments Blood Pressure 122/72 06/03/2023 4:33 PM SPORTS COMPLEX ATTENDANT Pulse 77 06/03/2023 4:33 PM SPORTS COMPLEX ATTENDANT Temperature 36.6 ??C (97.9 ??F) 06/03/2023 4:33 PM CS T Respiratory Rate 18 06/03/2023 4:33 PM SPORTS COMPLEX ATTENDANT Oxygen Saturation 96% 06/03/2023 4:33 PM SPORTS COMPLEX ATTENDANT Inhaled Oxygen Concentration - - Weight 67.1 kg (148 lb) 06/03/2023 4:33 PM SPORTS COMPLEX ATTENDANT Height 175.3 cm (5' 9 ) 06/03/2023 4:33 PM SPORTS COMPLEX ATTENDANT Body Mass Index 21.86 06/03/2023 4:33 PM SPORTS COMPLEX ATTENDANT Plan of Treatment Health Maintenance Due Date Last Done Comments ASCVD LDL 1960 ASCVD Statin 1960 Cervical Cancer Screening Pa p Smear (Age 30 to 64) Every 3 Years 1962 Colorectal Cancer Screening Colonoscopy (10 Years) 1962 Annual Physical 1965 Hepatitis C 1980 Cervical Cancer Screening Pa p with HPV Testing (Age 30 to 64) Every 5 Years 1992 Cervical Cancer Screening wi th HPV 1992 Mammogram Screening 2002 RSV Immunization or 60+ Years (1 - Risk 60-74 years 1-dose series) 2022 Zoster Vaccines (2 of 2) 09/19/2022 07/25/2022 COVID-19 Vaccine (4 - 2023-2 5 season) 2024 08/04/2021, 01/30/2021, 01/02/2021 Influenza Adult (#1) 2024 04/23/2022, 03/17/2020 PHQ-2 (Physician [place]) 06/30/2024 DTaP, Tdap and Td Vaccines ( 2 - Td or Tdap) 04/03/2032 04/03/2022 Pneumococcal Vaccine: Pediatrics (0 to 5 Years) and At-Risk Patients (6 to 64 Years) Completed 04/23/2022, 03/17/2020 Meningococcal B Vaccine Aged Out No l onger eligible based on patient's age to complete this topic Meningococcal Vaccine Aged Out No benita mechelle eligible based on patient's age to complete this topic RSV Immunizations Under 20 Months Aged Out No longer eligible b ased on patient's age to complete this topic Insurance [facility] Care Teams Bus Monitor Relationship Specialty Start Date End Date Nayely Singh MD [address] [place] [address] PCP - General ADULT MEDICINE 08/25/22
== END 2024-07-27 12:52 | disposition home or self-care (01) ==
LOC: ANHIMG 12:52
PROVIDERS: PCP Family Medicine; Visit Provider Internal Medicine Hematology & Oncology
DX: M85.89 Other specified disorders of bone density and structure, multiple sites (principal)
CPT/HCPCS: 77080

== ENCOUNTER 2024-11-04 07:08 | Outpatient (RCR) | payer MEDICARE, MEDICAID, SELFPAY ==
[2024-08-06 14:47] VITALS: BMI 19.5
--- NOTE | 2024-08-20 12:12 | WPDPN ---
Progress Note: A&P Assessment and Plan (1) Venous stasis ulcers of both lower extremities: Code(s): I83.019 - Varicose veins of right lower extremity with ulcer of unspecified site; I83.029 - Varicose veins of left lower extremity with ulcer of unspecified site; L97.919 - Non-pressure chronic ulcer of unspecified part of right lower leg with unspecified severity; L97.929 - Non-pressure chronic ulcer of unspecified part of left lower leg with unspecified severity Status: Acute Assessment and Plan: The venous stasis wounds in the bilateral lower extremities are improving with the Unna boot therapy. Keeping the edema at of the lower extremities has allow the wounds to start to contract and get good granulation tissue development at the bases. There is no necrotic tissue and no purulent drainage. We will go ahead and apply some Marsha collagen she is to the wound to try to promote further and faster granulation development. Reapply the Unna boots and change them in 1 week. Will see her back in the Wound Care Clinic in 2 weeks. Subjective Date/time seen: 08/19/24 Interval history: Patient returns to the Wound Care Clinic for a 2 week follow-up visit with me. The bilateral lower extremity chronic wounds have been dressed with Unna boots for the past 2 weeks. She seems to be doing well the inner boots. Wound care nurses state that the wounds are decreasing in size and getting good granulation tissue at the bases. Exam Extrem: Other: On the right medial ankle there is a ulcer wound measuring 3.8x4.5x0.3cm. On the left lateral ankle the wound is 2x1x0.2cm. On the left medial ankle the wound is 10x06.5x0.4cm. All 3 wounds show good granulation tissue at the bases contraction at the edges. There is no cellulitic changes or purulent drainage. Edema in the lower extremity and the area the wound is minimal. Objective Data Meds/Results Medications: Active Medications Generic Name Dose Route Start Last Admin Trade Name Freq PRN Reason Stop Dose Admin Gentamicin Sulfate 1 applic 08/06/24 14:44 Gentamicin Sulfate 0.1% Oint 15 Gm Tube TOPICAL 11/03/24 23:59 PRN PRN Wound Care
--- NOTE | 2024-09-17 11:21 | P.PN_ITS ---
Progress Note: A&P Assessment and Plan (1) Venous stasis ulcers of both lower extremities: Code(s): I83.019 - Varicose veins of right lower extremity with ulcer of unspecified site; I83.029 - Varicose veins of left lower extremity with ulcer of unspecified site; L97.919 - Non-pressure chronic ulcer of unspecified part of right lower leg with unspecified severity; L97.929 - Non-pressure chronic ulcer of unspecified part of left lower leg with unspecified severity Status: Acute Assessment and Plan: Continue compression dressings the bilateral lower extremity ankle chronic wounds with Unna boots. Change the dressings twice weekly. We will go ahead and apply some Marsha to the wounds. Follow-up see the patient in 2 weeks in the Wound Care Clinic again by me. Subjective Date/time seen: September 16, 2024 Interval history: Patient comes the [facility] for a routine weekly dressing change of her Unna boot to the bilateral lower extremity wounds. She has no complaints. Exam Extrem: Other: There continues to be slow improvement in her bilateral lower extremity chronic wounds. The right medial ankle wound now measures 2.5x3.5x0.3cm. Excellent granulation tissue and new skin growth is noted. The left medial ankle wound now measures 7x5.8x0.3cm. Again this wound has excellent granulation tissue at the base and contraction with new skin growth. No cellulitis is noted. Objective Data Meds/Results Medications: Active Medications Generic Name Dose Route Start Last Admin Trade Name Freq PRN Reason Stop Dose Admin Gentamicin Sulfate 1 applic 08/06/24 14:44 Gentamicin Sulfate 0.1% Oint 15 Gm Tube TOPICAL 11/03/24 23:59 PRN PRN Wound Care
--- NOTE | 2024-10-08 08:02 | WPDPN ---
Progress Note: A&P Assessment and Plan (1) Venous stasis ulcers of both lower extremities: Code(s): I83.019 - Varicose veins of right lower extremity with ulcer of unspecified site; I83.029 - Varicose veins of left lower extremity with ulcer of unspecified site; L97.919 - Non-pressure chronic ulcer of unspecified part of right lower leg with unspecified severity; L97.929 - Non-pressure chronic ulcer of unspecified part of left lower leg with unspecified severity Status: Acute Assessment and Plan: Both chronic lower extremity ankle wounds continue to heal slowly but there is progress. Continue applying Marsha to the wound bases and performing twice a week in a boot wound dressing changes. There is no significant swelling around the wounds. No drainage to suggest any cellulitis. Continue present management and I will see her back in Wound Care Clinic in 2 weeks. Subjective Date/time seen: 10/07/24 Interval history: Ms. Thomas returns to the Wound Care Clinic for a 2 week interval evaluation by me. She is doing well. She has been getting twice a week interval changes to the bilateral lower extremity chronic ankle wounds. Has chronic pain around the areas were otherwise has no complaints. The wounds have been dressed to removed and Marsha has been applied to the wound base during each dressing change. Exam Extrem: Other: The bilateral ankle wounds continue to heal although slowly. There is no swelling or purulent drainage. There is excellent granulation tissue throughout the bases of both wounds. Both wound bases appear to be more shallow although there is about the same measurement on the length and width of the incisions today. The right ankle measures 2.7x3.5x0.2cm. The left ankle wound measures 6.5x5x0.2cm. Healthy granulation tissue was noted throughout 100% of the wound bed. Objective Data Meds/Results Medications: Active Medications Generic Name Dose Route Start Last Admin Trade Name Freq PRN Reason Stop Dose Admin Gentamicin Sulfate 1 applic 08/06/24 14:44 Gentamicin Sulfate 0.1% Oint 15 Gm Tube TOPICAL 11/03/24 23:59 PRN PRN Wound Care
--- NOTE | 2024-11-04 14:49 | WPDPN ---
Progress Note: A&P Assessment and Plan (1) Venous stasis ulcers of both lower extremities: Code(s): I83.019 - Varicose veins of right lower extremity with ulcer of unspecified site; I83.029 - Varicose veins of left lower extremity with ulcer of unspecified site; L97.919 - Non-pressure chronic ulcer of unspecified part of right lower leg with unspecified severity; L97.929 - Non-pressure chronic ulcer of unspecified part of left lower leg with unspecified severity Status: Acute Assessment and Plan: After several weeks of improvement of the bilateral lower extremity venous stasis ulcers with compression with Unna boot dressings, she has now some regression. The reasons are multifactorial but at least 2 of the factors are noncompliance with taking her Lasix and altering the Unna boot on the right lower extremity which is been making the Unna boot less effective in keeping the swelling out of the right lower extremity. The left lower extremity where she has not altered the compression of the unna boot as seems to be continuing with good progression. I have stressed to her that she needs to continue taking her Lasix on a daily basis. She also needs to leave the right lower extremity Unna boot alone and not alter the compression of the boot. I once again told her that if she allows significant swelling to continue a areas of the ulcers and they will not heal and she will be at greater risk of amputation. She states she will be compliant with my directions. Also informed her that she needs to pay attention to the amount of sodium her diet and stay away from processed foods and soda which can have surprising amounts of sodium in them. The Unna boots were reapplied to lower extremities and she will follow-up again next week for dressing change. I will see her again in 2 weeks in the Wound Care Clinic. Subjective Date/time seen: 11/04/24 14:49 Interval history: Patient is seen in the [facility] today. She is being seen twice a week for Unna boot changes to the bilateral lower extremity wounds. More recently as described by the wound care nurses the patient has been missing her doses of Lasix and has been having considerably more swelling in the lower extremities. In the right lower extremity she seems to be altering the in a boot and this is been causing worsening residual swelling of her right lower extremity. She has been leaving the left in a boot alone and she has not been having significant swelling the left lower extremity with removed is applied. She she has obtained a new primary care physician. She takes 40mg of Lasix a day and states that she is now taking that again. Exam Extrem: Other: The right ankle wound now measures 4x3.8x0.2cm. The left ankle was 6.9x5.3x0.2cm. Granulation tissue was noted throughout both bases. There is significant 2+ pitting edema of the right lower extremity from just distal to the knee all the way down to the toes. No significant swelling the left lower extremity. No active cellulitis noted.
== END 2024-11-04 23:59 | disposition home or self-care (01) ==
LOC: ANHWOC 07:08
PROVIDERS: PCP Family Medicine; Visit Provider Surgery
DX: Z48.00 Encounter for change or removal of nonsurgical wound dressing (principal); I83.009 Varicose veins of unspecified lower extremity with ulcer of unspecified site; L97.909 Non-pressure chronic ulcer of unspecified part of unspecified lower leg with unspecified severity
CPT/HCPCS: 29581; 99215; A9270; G0463

== ENCOUNTER 2025-01-03 07:06 | Outpatient (RCR) | payer MEDICARE, MEDICAID, SELFPAY ==
[2024-11-05 00:03] VITALS: BMI 19.5
--- NOTE | 2024-11-18 14:30 | P.PN_ITS ---
Progress Note: A&P Assessment and Plan (1) Venous stasis ulcers of both lower extremities: Code(s): I83.019 - Varicose veins of right lower extremity with ulcer of unspecified site; I83.029 - Varicose veins of left lower extremity with ulcer of unspecified site; L97.919 - Non-pressure chronic ulcer of unspecified part of right lower leg with unspecified severity; L97.929 - Non-pressure chronic ulcer of unspecified part of left lower leg with unspecified severity Status: Acute Assessment and Plan: The patient continues to have 2+ pitting edema from the knees distally to the feet bilaterally. This is despite having it boots placed twice a week. Apparently she seems to roll down the upper portion of the Unna boot to decrease the constriction due to complaints of pain. She states she is more compliant with starting take her diuretics. At this point the wounds have actually increased in size on the bilateral ankle regions. I think she would benefit from an opinion from a dedicated vascular surgeon to comment on whether she would benefit from any vascular interventions to help heal the chronic bilateral ankle wounds. She is going to see her primary care physician this afternoon for routine visit and will ask her primary care physician for referral to a vascular project specialist. For now will continue application of the Unna boot until she can get in to see a vascular surgeon. Subjective Date/time seen: 11/18/24 14:30 Interval history: Patient was seen today in the [facility]. This was interval 2 week follow-up with me. She has no specific complaints that are new from her usual comments at her wound care visits. She states she is back on her Lasix and she has an appointment to see her primary care physician this afternoon. Exam Skin: Other: The right ankle wound now measures 4.3x4.1x0.3cm. This has enlarged by almost a cm since her last measurement by me a couple of weeks ago. Her left ankle wound now measures 7.3 by 6.0x0.2cm and this 1 is also enlarged by about a cm since her last visit with me 2 weeks ago. There was still excellent granulation tissue throughout at least 80% of the base. No necrotic tissue was noted. She does have 2+ to 3+ pitting edema to the knee distally despite use of Unna boots.
--- NOTE | 2024-12-30 12:17 | PCWOUND ---
WOCN NOTE Patient did not show up for appointment, called phone number on file. no answer.
== END 2025-01-24 13:10 | disposition home or self-care (01) ==
LOC: ANHWOC 07:06
PROVIDERS: PCP Family Medicine; Visit Provider Surgery
DX: Z48.00 Encounter for change or removal of nonsurgical wound dressing (principal); I83.009 Varicose veins of unspecified lower extremity with ulcer of unspecified site; L97.909 Non-pressure chronic ulcer of unspecified part of unspecified lower leg with unspecified severity
CPT/HCPCS: 29581; A9270

== ENCOUNTER 2025-05-10 10:02 | Outpatient (CLI) | payer MEDICARE, MEDICAID, SELFPAY ==
--- NOTE | ~2025-05-10 | US_ITS ---
EXAMINATION: US biopsy lymph node DATE: 05/10/2025 11:48 INDICATION: Right breast cancer presenting with right supraclavicular lymphadenopathy. TECHNIQUE: The procedure including the risks and benefits was discussed with the patient. Risks discussed included bleeding and infection. The patient understood the risks and agreed to proceed. The skin overlying the right supraclavicular region was prepped and draped in usual sterile fashion. Anesthetic was administered with 1% lidocaine subcutaneously. An 18 gauge core biopsy needle was advanced under continuous ultrasound observation to the lesion of interest. 3 core biopsy specimens were obtained. The needle was removed and the entry site was cleaned and dressed. Post procedure ultrasound demonstrated no hemorrhage. FINDINGS: Ultrasound images demonstrate biopsy needle advanced into a 5.6 x 4.1 x 2.1 cm right supraclavicular heterogeneous mass suspicious for metastatic lymph node. IMPRESSION: 1. Successful Ultrasound-guided biopsy of a 5.6 x 4.1 x 2.1 cm right supraclavicular mass suspicious for a metastatic lymph node. Reviewed, dictated and finalized at location A. UNICATIONS TECH IMPRESSION: 1. Successful Ultrasound-guided biopsy of a 5.6 x 4.1 x 2.1 cm right supraclavi cular mass suspicious for a metastatic lymph node.
--- OUTSIDE RECORDS SUMMARY | 2025-05-10 10:32 | XMS_ITS | Data Portability ---
Author Organization [facility] [employer] [facility] and, 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 TOM's and TBI's are unable to be performed due to her lower extremity foot wounds. I recommended to her today to have an angiogram performed due her persistent wounds despite vein closure procedures and no iliac vein compression previously visualized. Of note, she has made an appointment for a civil transportation engineer for what appears to be possible plaque [...] CMP, serum or plasma 023 07/12/19 23 GHASSAN Not available 4 05:01:44 CBC 023 07/12/19 23 GHASSAN Not available 4 05:01:44 HbA1c (hemoglo [...] Abnormal Flag Note LastModifiedBy Organization Detail LastModifiedTime 07/16/19 23 07/12/2022 US, tristan x venou s, lower extre mity, limit ed No observ ation record ed. [email or web address] Not Available 2022 09:28:38 07/16/19 23 07/16/2022 US, tristan x venou s, lower extre mity, limit ed No observ ation record ed. [email or web address] Not Available 2022 09:28:51 07/24/19 23 07/12/2022 US, doppl er, arter ial No observ ation record ed. [email or web address] Not Available 07/01 15:04:19 08/29/19 23 08/26/2022 US, doppl er, venou s No observ ation record ed. [email or web address] Not Available 2022 09:20:17 08/29/19 23 08/26/2022 US, tristan x venou s, lower extre mity, limit ed No observ ation record ed. [email or web address] Not Available 2022 09:20:34 09/11/19 23 08/26/2022 US, duple x, arter ial, lower extre mity, limit ed No observ ation record ed. [email or web address] Not Available 2022 15:46:59 Result Notes None recorded. 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 Ria baron, [place] - [facility] 12:54:46 Colostomy care Active 2020 Ria [place], [place] - [facility] and 12:54:56 Dyslipidemia 661019561 Active 2020 Ria [place] [facility] and 13:03:31 Cerebrovascula r accident 088749027 Active 2020 Ria [place], [place] - [facility] and 13:03:39 Chest pain 15658106 Active 2020 Ria Howell null, [place] - [facility] and 13:03:46 Cough 31253698 Active 2020 R[place] [facility] and 13:03:51 Edema of lower extremity 523806787 Active 2020 Ria [place] [facility] 13:04:03 Dizziness 991958607 Active 2020 Ria [place] [facility] 13:04:09 Pain of joint 38645423 Active 2020 Ria [place] [facility] 13:04:17 Seizure 85206726 Active 2020 Ria [place] [facility] 13:04:25 Fluttering heart 948238507 Active 2020 Ria [place] [...] and 08/26/2022 17:38:13 023 [email or web address] completed Ria [place] - [facility] [...] [place] [address], [address], [place] - [facility] and 09/18/2021 11:24:33 021 [place] [address], [address], [place] - [facility] and 06/19/2021 15:55:21 021 OA LE Quantiflow study completed Ria [facility] 05/18/2021 13:03:57 021 OALEVenousUSreflux completed Ria Dante [facility] 05/18/2021 12:56:41 Colostomy completed Ria Dante [facility] 05/21/2021 12:56:40 section completed Ria Dante Acevedo O [facility]ion [facility] 05/21/2021 13:05:04 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 Procedure Notes None recorded. Medical Equipment None [...] Social History Question Answer Notes LastModified by [employer] Details LastModified Time Tobacco Smoking Status Former Smoker Ria baron, [facility] and 05/21/2021 13:07:07 What Is Your Level Of Caffeine Consumption? None [email or web address] Information not available 05/21/2021 What Was The Date Of Your Most Recent Tobacco Screening? 09/18/2021 [email or web address] Information not available 09/18/2021 At What Age Did You Start Smoking Tobacco? 18 [email or web address] Information not available 07/27/2021 How Many Years Have You Smoked Tobacco? 20 [email or web address] Information not available 07/27/2021 Sex: Unknown Functional Status Question Answer Note LastModified by [employer] Details LastModified Time Do you use any illicit or recreational drugs? No [email or web address] Information not available 05/21/2021 Do you or have you ever used any other forms of tobacco or nicotine? No [email or web address] Information not available 05/21/2021 What is your level of alcohol consumption? None [email or web address] Information not available 05/21/2021 Mental Status None recorded. Family History Nothing Reported. Medical History Condition Response Anxiety Disorder N Varicose Veins N Anticoagulation therapy N Diabetes N Coronary Artery Disease N Bleeding Disorder Y Hyperlipidemia N Cancer N Stroke Y Asthma Y COPD N Pacemaker N Clotting Disorder Y Anemia N Neurologic Disorder N Hepatitis N Genitourinary Disease N Heart Disease N Ulcers Y Gastrointestinal Disease N Pulmonary Embolism N Deep Vein Thrombosis Y Hypertension N Kidney Disease N Gynecological HistoryNo gynecological history recorded. Obstetrics History GPAL:G 0 P 0 0 0 0 Past Encounters Encounter ID Performer Location Encounter Start Date Encounter Closed Date Diagnosis/Indication Diagnosis SNOMED-CT Code Diagnosis ICD10 Code Diagnosis IMO Codes Diagnosis Note [id number] Francisco Oh MD [facility] ) [address] [place] [address] 05/18/2021 12:31:42 05/21/2021 13:22:43 Varicose veins of lower extremity 85600769 I83.893 Primary ve nous insufficiency of lower limb 605859502 I87.2 Venous sta sis ulcer of leg 819796487 I83.009 Ischemic u lcer of lower leg due to atherosclerotic disease 6572950897 2044292 I70.248 [id number] Francisco Oh MD [facility] ( [facility] ) [address] [place] [address] 06/19/2021 10:38:59 07/11/2021 17:25:12 Ischemic ulcer of lower leg due to atherosclerotic disease 6827843170 7682180 I70.248 [id number] Francisco Oh MD [facility] [address] [place] [address] 07/27/2021 11:02:17 07/27/2021 16:33:48 Venous stasis ulcer of leg 879720310 I83.009 Ischemic u lcer of lower leg due to atherosclerotic disease 3682134027 1293917 I70.248 Edema of l ower extremity 141899702 R60.0 Varicose v eins of lower extremity 17972533 I83.893 [id number] Francisco Oh MD [facility] ( [facility] ) [address] [place] [address] 09/18/2021 08:02:29 09/25/2021 00:01:45 Obstruction of iliac vein 252861442 I87.1 [id number] Francisco Oh MD [address], [place],[facility] [address] ( [place] [address] 10/01/2021 09:44:31 10/01/2021 10:30:33 Venous stasis ulcer of leg 864097674 I83.009 Varicose v eins of lower extremity 66086116 I83.893 Edema of l ower extremity 903987619 R60.0 [id number] Francisco Oh MD [facility] ( [facility] [address] [place] [address] [place] [address] 02/13/2022 13:49:29 02/13/2022 14:54:48 Varicose veins of lower extremity 57608668 I83.893 Edema of l ower extremity 310138043 R60.0 [id number] Francisco Oh MD [facility] ( [facility] [address] [place] [address] [place] [address] 02/27/2022 13:05:38 02/27/2022 15:13:04 Varicose veins of lower extremity 18299413 I83.893 Edema of l ower extremity 360644188 R60.0 Venous ulc er of lower extremity due to chronic peripheral venous hypertension 5719285115 26703 I87.319 [id number] Francisco Oh MD [facility] [address] [place] [address] 03/15/2022 09:42:53 03/20/2022 09:59:02 Varicose veins of lower extremity 64870527 I83.893 [id number] Francisco Oh MD [facility] [address] [facility], [place] [address],[facility] [address] ( [place] [address] 03/18/2022 14:11:00 03/18/2022 14:38:41 Varicose veins of lower extremity 86649429 I83.893 Venous sta sis ulcer of leg 105516160 I83.013 [id number] Francisco Oh MD [facility] [address] [place] [address] [place] [address] 03/27/2022 09:29:51 03/27/2022 13:40:43 Varicose veins of lower extremity 34338912 I83.893 Venous sta sis ulcer of leg 658381234 I83.013 Cellulitis of right lower limb 4252514061 6206354 L03.115 She will be seen next door by her primary care team for further management (culture and antibiotic s). [id number] Francisco Oh MD [facility] ( [place] ) [address] [place] [address] [place] [address] 05/08/2022 10:10:48 05/08/2022 14:21:27 Venous stasis ulcer of leg 011694932 I83.023 Varicose v eins of lower extremity 91239493 I83.893 Edema of l ower extremity 291650335 R60.0 [id number] Francisco Oh MD [facility] ( [place] ) [address] [place] [address] [place] [address] 05/22/2022 11:16:14 05/22/2022 14:10:54 Varicose veins of lower extremity 75063083 I83.893 Venous sta sis ulcer of leg 061185960 I83.023 [id number] Francisco Oh MD [facility] ( [place] ) [address] [place] [address] [place] [address] 06/19/2022 12:13:38 06/19/2022 13:34:58 Varicose veins of lower extremity 24182541 I83.893 Edema of l ower extremity 334828088 R60.0 Bilateral lower limb pain at rest due to atherosclerosis 7502885759 5995210 I70.223 Ischemic u lcer of lower leg due to atherosclerotic disease 2020143574 6253813 I70.90 Venous sta sis ulcer of leg 901119213 I83.013 Plaque psoriasis 09 L40.0 (pending diagnosis) [id number] Francisco Oh MD [facility] ( [place] ) [address] [place] [address] [place] [address] 07/12/2022 09:40:42 07/17/2022 16:33:08 Pre-surgery testing 557253542 Z01.89 Venous sta sis ulcer co-occurrent with edema of lower leg 0158983670 9100 I83.009 Ischemic u lcer of lower leg due to atherosclerotic disease 8187343839 6849697 I70.238 I70.248 Bilateral lower limb pain at rest due to atherosclerosis 6705595881 1926324 I70.223 Edema of l ower extremity 765121870 R60.0 Varicose v eins of lower extremity 56618553 I83.893 [id number] MD CECILIA Wilson D [address] [address] 07/12/2022 09:50:11 07/15/2022 16:18:16 Ischemic ulcer of lower leg due to atherosclerotic disease 6468117811 0250356 I70.238 I70.248 Venous sta sis ulcer co-occurrent with edema of lower leg 6668663954 9100 I83.009 [id number] Francisco Oh MD [facility] [address] [address] 08/26/2022 15:22:21 08/27/2022 10:06:36 Spontaneous ecchymosis 409576279 R23.3 Ischemic u lcer of lower leg due to atherosclerotic disease 6831300351 6861651 I70.248 Varicose v eins of lower extremity 54873845 I83.893 [id number] MD [place] [address] [address] 08/26/2022 17:36:07 08/27/2022 10:09:53 Spontaneous ecchymosis 401316994 R23.3 Ischemic u lcer of lower leg due to atherosclerotic disease 9655914885 6704668 I70.248 Health Concerns Section Related Observation LastModified by Organization Priscilla ls LastModified Time None Recorded Concern Status LastModified by Organization Details LastModified Time None Recorded Advance Directives Directive None Recorded Payers Insurance Date Sequence Insurance Name Policy Number Policy Payne Covered Member ID Payne Member ID Guarantor Name 04/24/2022 1 [employer] (MEDICARE REPLACEMENT/A DVANTAGE - HMO) Racquel [place] [id number] Racquel [place] 04/24/2022 2 [place] Racquel [place] [id number] Racquel [place] 08/31/2022 1 [place] [employer] Racquel [place] [id number] Racquel Martha 01/08/2024 1 [facility] MEDICARE [facility]V[place]AGE [place] [id number] Racquel [place] [id number] Racquel Martha 06/16/2022 2 [employer] (MEDICARE REPLACEMENT/A DVANTAGE - HMO) [id number] Racquel Martha [id number] Racquel Martha 11/15/2024 2 [place] [facility] Racquel Thomas [id number] Racquel Martha 05/08/2022 3 [employer] (HMO) [id number] Racquel [place] [id number] Racquel Martha 07/12/2022 1 [employer] (HMO) [id number] Racquel [place] [id number] Racquel [place] 08/31/2022 1 [place] B[place]: [employer] Racquel [place] [id number] Racquel Martha 02/28/2023 1 [employer] (MEDICARE REPLACEMENT/A DVANTAGE - PPO) [id number] Racquel Martha [id number] Racquel Martha 11/15/2024 1 [facility] (MEDICARE REPLACEMENT/A DVANTAGE - HMO) Racquel [place] [id number] Racquel Martha 11/15/[address] [facility] (MEDICARE REPLACEMENT/A DVANTAGE - PPO) [id number] Racquel Martha [id number] Racquel Martha Notes Date Note Type Note Provider Name [...] to scratching frequently. Angella baron, [place] [facility] and 06/19/2022 13:26:16 07/12/2022 text/html 61-year-old with a history of severe venous insufficiency status post vein closures being seen for post vein treatment ultrasound and arterial ultrasound due to non-healing wounds. JHONNY ALDRICH, MACHINE BUNCH MAKER [address] [address], [place], [address], [facility] and 07/17/2022 16:31:40 08/26/2022 text/html ROS as noted in the HPI 62 year old with a history of [...] from walking into a wooden chair. Angella baron, [facility] and 08/26/2022 17:11:28 OBGyn Episode No OBEpisode recorded.
--- OUTSIDE RECORDS SUMMARY | 2025-05-10 10:32 | XMS_ITS | Clinical Summary ---
Author Organization [facility] Guilherme mcnally [facility] Address [address] [place] [address] Care Team Providers Care Accounting Technician Name Role Phone Nayely Singh MD Primary Care Provider [phone] Allergies No known active allergies Medications oxyCODONE [...] Take 10 mg by mouth daily. Active tamoxifen (NOLVADEX) 20 mg tablet Take 1 Tablet (20 mg) by mouth daily. 90 Tablet 3 03/17/2025 Active Active Problems Patient Care Coordination No te Formatting of this note migh t be different from the original. Primary Care: Nayely Singh MD Referring Provider: Sascha Donohue MD [address] [place] [address] Other: Dr. Benita Maki MD Problem Noted Date Diagnosed Date Protein-calorie malnutrition, severe 06/15/2024 Malignant neoplasm of upper- outer quadrant of right breast in female, estrogen receptor positive 02/23/2024 Cancer Staging:Clinical stage from 02/19/2024:Stage IIIB(cT3, cN1, cM0, G3, ER+, CO-, HER2-) - Signed by Benita Maki MD on 02/23/2024 Pathologic stage from 06/14/2024: ypT2, ypN1a, cM0, G3, ER+, CO-, HER2- - Signed by Benita Maki MD on 07/02/2024 Coronary artery disease invo lving [place] coronary artery of [place] heart without angina pectoris 05/23/2023 Hyperlipidemia, unspecified 05/18/2023 Personal history of other venous thrombosis and embolism 05/18/2023 S/P IVC filter 12/25/2016 Brain aneurysm 11/25/2016 H/O colectomy 11/25/2016 History of heart artery stent 11/25/2016 History of seizures 11/25/2016 History of cerebrovascular accident 11/22/2016 History of pulmonary embolism 10/19/2016 Peripheral arterial occlusive disease 10/19/2016 Encounters Date Type Department Care Team Description 05/09/2025 Orders Only [facility] Oncology and Hematology - [place] [address] [place] [address] Sascha Donohue MD Malignant neoplasm of lower-outer quadrant of right breast of female, estrogen receptor positive (CMS/HCC) 05/03/2025 External Device Data STL ABSTRACTION Provider, Abstract 04/29/2025 Orders Only [facility] Oncology and Hematology - [place] [address] [place] [address] Sascha Donohue MD 04/25/2025 Orders Only [facility] Oncology and Hematology - [place] [address] [place] [address] Sascha Donohue MD Chronic anemia; Malignant neoplasm of lower-outer quadrant of right breast of female, estrogen receptor positive (CMS/HCC) 04/22/2025 Telephone [facility] Oncology and Hematology - [place] [address] [place] [id number] Sascha Donohue MD [employer] Testing 04/21/2025 4:30 PM CDT Telephone Check Up [facility] Oncology and Hematology - [place] [address] [place] [address] Sascha Donohue MD Chronic anemia (Primary Dx); Malignant neoplasm of lower-outer quadrant of right breast of female, estrogen receptor positive (CMS/HCC) 04/20/2025 External Device Data STL ABSTRACTION Provider, Abstract 04/14/2025 Orders Only [facility] Oncology and Hematology - [place] [address] [place] [id number] Sascha Donohue MD 04/13/2025 Orders Only [facility] Oncology and Hematology - [place] [address] [place] [address] Sascha Donohue MD 04/11/2025 Orders Only [facility] Oncology and Hematology - [place] [address] [place] [address] Sascha Donohue MD Malignant neoplasm of lower-outer quadrant of right breast of female, estrogen receptor positive (CMS/HCC) 04/07/2025 Orders Only [facility] Oncology and Hematology - [place] [address] [place] [address] Sascha Donohue MD 04/05/2025 Abstract [facility] Oncology and Hematology - [place] [address] [place] [address] Sascha Donohue MD 03/28/2025 [facility] Oncology and Hematology - [place] [address] [place] [id number] Sascha Donohue MD Malignant neoplasm of lower-outer quadrant of right breast of female, estrogen receptor positive (CMS/HCC) 03/25/2025 Orders Only [facility] Oncology and Hematology - [place] [address] [place] [id number] Sascha Donohue MD 03/24/2025 Orders [facility] Oncology and Hematology - [place] [address] [place] [address] Sascha Donohue MD 03/21/2025 Orders Only [facility] Oncology and Hematology - [place] [address] [place] [address] Sascha Donohue MD 03/17/2025 2:00 PM CDT Office Visit [facility] Oncology and Hematology - [place] [address] [place] [address] Sascha Donohue MD Malignant neoplasm of lower-outer quadrant of right breast of female, estrogen receptor positive (CMS/HCC) (Primary Dx); Chronic anemia 03/14/2025 Orders Only [facility] Oncology and Hematology - [place] [address] [place] [address] Sascha Donohue MD Malignant neoplasm of lower-outer quadrant of right breast of female, estrogen receptor positive (CMS/HCC) 03/11/2025 Orders Only [facility] Oncology and Hematology - [place] [address] [place] [id number] Sascha Donohue MD 03/04/2025 Orders [facility] Oncology and Hematology - [place] [address] [place] [address] Sascha Donohue MD 03/01/2025 External Device Data STL ABSTRACTION Provider, Abstract 02/28/2025 Orders Only [facility] Oncology and Hematology - [place] [address] [place] [address] Sascha Donohue MD Malignant neoplasm of lower-outer quadrant of right breast of female, estrogen receptor positive (CMS/HCC) 02/25/2025 Orders Only [facility] Oncology and Hematology - [place] [address] [place] [address] Sascha Donohue MD 02/24/2025 Orders Only [facility] Oncology and Hematology - [place] [address] [place] [address] Sascha Donohue MD 02/15/2025 External Device Data STL ABSTRACTION Provider, Abstract 02/14/2025 Orders Only [facility] Oncology and Hematology - [place] [address] [place] [address] Sascha Donohue MD Malignant neoplasm of lower-outer [...] and/or physically? Patient unable to answer 06/14/2024 Food Insecurity Answer Date Recorded Patient needs follow up regardin 10/21/2024 Transportation Needs Answer Date Record ed Patient needs follow up regardin 10/21/2024 Utility Needs Answer Date Recorded Patient needs follow up regardin 10/21/2024 Comments No Sex and Gender Information Value Date Recorded Sex Assigned at Not on file Legal Sex Female 5:41 AM TAR PROCESSING TECHNICIAN Gender Identity Not on file Sexual Orientation Not on file Last Filed Vital Signs Vital Sign Reading Time Taken Comments Blood Pressure 108/48 03/17/2025 1:53 PM CDT Pulse 60 03/17/2025 1:50 PM CDT Temperature 37.1 C (98.8 F) 03/17/2025 1:50 PM CDT Respiratory Rate 15 03/17/2025 1:50 PM CDT Oxygen Saturation 98% 03/17/2025 1:50 PM CDT Inhaled Oxygen Concentration - - Weight 71.4 kg (157 lb 6.4 oz) 03/17/2025 1:50 P M CDT Height 177.8 cm (5' 10) 08/06/2024 9:32 AM TAR PROCESSING TECHNICIAN Body Mass Index 22.58 08/06/2024 9:32 AM TAR PROCESSING TECHNICIAN Plan of Treatment Upcoming Encounters Date Type Department Care Team (Late st Contact Info) Description 05/31/2025 2:30 PM TAR PROCESSING TECHNICIAN Office Visit [facility] Oncology and Hematology - [place] [address] [place] [address] [facility] [address] [place] [address] Sascha Donohue MD [address] [place] [address] Health Maintenance Due Date Last Done Comments HPV/Cotest (21-29) 1983 CERVICAL CANCER SCREENING 1992 HPV/Cotest (30-65) 1992 PAP SMEAR 1992 FIT-DNA Q 3 years 2007 FIT/FOBT Q 1 year 2007 Flex Sig/CT Colonography Q 5 years 2007 RSV VACCINE (60+ or ) (1 - Risk 50-74 years 1-dose series) 2012 ZOSTER VACCINE (2 of 2) 09/19/2022 07/25/2022 BREAST CANCER SCREENING 02/12/2024 02/11/2023 INFLUENZA VACCINE (#1) 2025 05/20/2023 COVID-19 Vaccine ( season) 2025 06/03/2023, 08/04/2021, 01/02/2021 COLORECTAL SCREENING 11/25/2026 11/25/2016 Colorectal Cancer Screening 11/25/2026 DTAP/TDAP/TD VACCINES (2 - T d or Tdap) 04/03/2032 04/03/2022 Medical Devices Implanted Type Area Barge Engineer Device Identifier Shelf Expiration Date Model / Serial / Lot Hostage Negotiator Ligaclip Multi Med [id number] - [id number] Implanted:Qty : 1 on 06/14/2024 by Benita Maki MD at [facility] Clip Right: Axilla [employer] MSM20 / / Agent Hemostat Surgicel 4x8in 2s - [id number] Implanted:Qty : 1 on 06/14/2024 by Benita Maki MD at [facility] Hemostatic Right: Breast [employer]- [employer] 06/29/2028 [id number] / / [id number] Procedures Procedure Name Priority Date/Time Associated Diagnosis Comments CBC WITH AUTODIFFERENTIAL Routine 2024 11:48 AM CDT PET BONE IMG W CT SKL BSE MID THG Routine 04/14/2025 2:29 PM CDT CBC WITH AUTODIFFERENTIAL Routine 2024 12:50 PM CDT CBC WITH AUTODIFFERENTIAL Routine 2024 1:50 PM CDT CBC WITH AUTODIFFERENTIAL Routine 2024 11:03 AM CDT VITAMIN B12 LEVEL Routine 03/17/2025 12: 42 PM CDT METHYLMALONIC ACID Routine 03/17/2025 12 :24 PM CDT CBC WITH AUTODIFFERENTIAL Routine 2024 11:08 AM CDT CHG CA 15 3 Routine 03/10/2025 12:16 PM CDT COMPREHENSIVE METABOLIC PANEL Routine 03/10/2025 11:11 AM CDT CBC WITH AUTODIFFERENTIAL Routine 2024 11:08 AM CDT CBC WITH AUTODIFFERENTIAL Routine 2024 12:18 PM CDT CBC WITH AUTODIFFERENTIAL Routine 2024 3:31 PM CDT IRON, TIBC, AND PERCENT SATURATION Routine 02/24/2025 7:40 AM CDT IRON, TIBC, AND PERCENT SATURATION Routine 02/10/2025 12:35 PM CDT CBC WITH AUTODIFFERENTIAL Routine 2024 12:29 PM CDT MAMMO 3D ONEAL DIAGNOSTIC BILAT W OR WO CAD Routine 02/11/2023 12:40 PM CDT from Last 3 Months or Most Recently Relevant to Health Maintenance Results * CBC WITH AUTODIFFERENTIAL (04/28/2025 11:48 AM CDT) Only the most recent of9 resultswithin the time period is included. Blood us Sascha Donohue MD HEMATOLOGY ORDERABLES Final Res ult * PET BONE IMG W CT SKB MD (04/14/2025 2:29 PM CDT) Anatomical Region Laterality Modality Positron Emissio n Tomography (PET) us Sascha Donohue MD PE ORDERABLES Final Result * VITAMIN B12 LEVEL (03/17/2025 12:42 PM CDT) Blood us Sascha Donohue MD CHEMISTRY ORDERABLES Final Resu lt * METHYLMALONIC ACID (03/17/2025 12:24 PM CDT) Blood us Sascha Donohue MD CHEMISTRY ORDERABLES Final Resu lt * CHG CA 15 3 (03/10/2025 12:16 PM CDT) us Sascha Donohue MD CHG - LABORATORY Final Result * COMPREHENSIVE METABOLIC PANEL (03/10/2025 11:11 AM CDT) Blood Sascha Donohue MD CHEMISTRY ORDERABLES Final Resu lt * IRON, TIBC, AND PERCENT SATURATION (02/24/2025 7:40 AM CDT) Only the most recent of2 resultswithin the time period is included. Blood Sascha Donohue MD CHEMISTRY ORDERABLES Final Resu lt * MAMMO 3D ONEAL DIAGNOSTIC BILAT W OR WO CAD (02/11/2023 12:40 PM CDT) Anatomical Region Laterality Modality Breast Bilateral Mammography Abstract Provider MAMMO ORDERABLES Edited Result - Final from Last 3 Months or Most Recently Relevant to Health Maintenance Insurance [place] DUAL COMPLETE PPO [facility] [id number] [facility] MERVIN KRAUS [address] DUAL COMPLETE PPO DSNP [facility] [id number] [place]ID [place] Advance Directives For more information, please contact: [phone] * Full Code (Latest Code Status on File) Date Activated Date Inactivated Comments 06/14/2024 3:40 PM 06/15/2024 3:17 PM * Full Code Date Activated Date Inactivated Comments 06/14/2024 7:46 AM 06/14/2024 3:40 PM Care Teams Accounting Technician Relationship Specialty Start Date End Date Nayely Singh MD [address] [place] [address] PCP - General Family Practice 12/10/23
--- OUTSIDE RECORDS SUMMARY | 2025-05-10 10:32 | XMS_ITS | Encounter Summary ---
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 Question Answer Date of Assessment Author Have you ever felt the need to Cut down on your drinking? 0 04/19/2023 3:24 AM MARISELAT Giuliana Rock RN Have people ever Annoyed yo u by criticizing your drinking? 0 04/19/2023 3:24 AM CDT Giuliana oRck RN Have you ever felt bad or Guilty about your drinking? 0 04/19/2023 3:24 AM CDT Giuliana Rock RN Have you ever had a drink first thing in the morning to steady your nerves or get rid of a hangover? Eye explosive technician? 0 04/19/2023 3:24 AM CDT Giuliana Rock RN CAGE SCORE: 2 or Greater = Positive 0 04/19/2023 3:24 AM CDT Giuliana Rock RN * Difference in Last Two Clem Scores Answer Date of Assessment Author 0 04/22/2023 11:40 PM CDT Migdalia Dickens RN * Velazquez Fall Risk Question Answer Date of Assessment Author History of Falling 25 04/22/2023 7:30 PM CDT Migdalia Dickens RN Secondary Diagnosis 15 04/22/2023 7:30 PM CD T Migdalia Dickens RN Ambulatory Aids 0 04/22/2023 7:30 PM CDT Migdalia Abreu RN Intravenous Therapy/Heparin/Saline Lock 20 04/22/2023 7:30 PM CDT Migdalia Ta RN Gait/Transferring 0 04/22/2023 7:30 PM CDT Migdalia Dickens RN Mental Status 0 04/22/2023 7:30 PM CDT Migdalia Alexandra RN Velazquez Fall Risk Score (Score >= 45 places fall precaution order) 60 04/22/2023 7:30 PM CDT Migdalia Sarmiento RN Prior Fall Event (Autopopulated from EMR) None found 04/22/2023 7:30 PM CDT Migdalia Bryan RN * Clem Scale Question Answer Date of Assessment Author Sensory Perceptions 3 04/22/2023 11:40 PM C DT Migdalia Dickens RN Moisture 3 04/22/2023 11:40 PM CDT Migdalia Alexandra RN Activity 1 04/22/2023 11:40 PM CDT Migdalia Alexandra, MAN Mobility 2 04/22/2023 11:40 PM CDT Migdalia Alexandra RN Nutrition 2 04/22/2023 11:40 PM CDT Migdalia Alexandra RN Friction and Shear 2 04/22/2023 11:40 PM CD T Migdalia Dickens RN Clem Scale Score 13 04/22/2023 11:40 PM CD T Migdalia Dickens RN * Question Answer Date of Assessment Author BP Location Right arm 04/22/2023 7:41 PM CDT [place] BP Method Automatic 04/22/2023 7:41 PM CDT [place] MAP (mmHg) 69 04/22/2023 7:41 PM CDT [place] * Question Answer Date of Assessment Author Arterial Line MAP (mmHg) 81 04/20/2023 9:00 AM CDT Jared Diane RN Arterial Line BP 105/76 04/20/2023 9:00 AM CDT Jared Flanagan RN * Fall Risk Interventions Question Answer Date of Assessment Author All Low Fall Interventions Applied Yes 04/22/2023 7:30 PM CDT Migdalia Dickens RN All Moderate Fall Interventions Applied Yes 04/22/2023 7:30 PM CDT Migdalia Dickens RN All High Fall Risk Interventions Applied Yes 04/22/2023 7:30 PM CDT Migdalia Dickens RN All High Risk Interventions EXCEPT: Bed alarm 04/22/2023 7:30 PM CDT Migdalia Dickens RN Additional Interventions Applied Other (Comment) 04/22/2023 1:40 PM CDT Chloe Rodriguez , MAN Reason For Exception(s) Patient on bedrest 04/22/2023 7:30 PM CDT Migdalia Dickens MAN * B.M.A.T. - Bedside Mobility Assessment Tool for Nurses Question Answer Date of Assessment Author Is patient able to participate in the BMAT? No 04/22/2023 7:30 PM MARISELAT Migdalia Dickens RN Reason patient is unable to participate in BMAT Bed rest orders 04/22/2023 7:30 PM MARISELAT Migdalia Dickens RN BMAT Level Manually positioned/transferr ed due to age and weight 04/22/2023 7:30 PM CDT Migdalia Dickens RN Level 2 Equipment Use total lift for patient unable to weight-bear on at least one leg 04/22/2023 7:30 PM MARISELAT Migdalia Dickens RN * Alcohol Withdrawal BP Hierarchy Answer Date of Assessment Author 66 04/22/2023 7:41 PM CDT [place] * Pressure Injury Prevention Question Answer Date of Assessment Author Pressure Ulcer Prevention Interventions Keep skin clean and dry (Sensory Perception/Moisture);Chencho ce on pressure redistribution surface (Sensory Perception/Activity/Mobi lity);Establish turning schedule (Sensory Perception/Activity/Mobi lity);Use pillows/wedge for positioning (Activity/Mobility);Prov yomaira adequate nutrition/fluid intake (Nutrition) 04/22/2023 11:40 PM MARISELAT Migdalia Dickens RN 2 Nurse Skin Assessment Мария CONWAY 04/21/20 7:00 PM CDT Jody Haque RN Protective Foam Dressing Location Coccyx 04/22/2023 11:40 PM CDT Migdalia Dickens RN Special Mattress Low air loss and alternating pressure relief 04/22/2023 11:40 PM MARISELAT Migdalia Dickens RN * Integumentary Question Answer Date of Assessment Author Skin Color Appropriate for ethnicity 04/22/2023 11:40 PM MARISELAT Migdalia Dickens RN Skin Condition/Temp Warm;Dry 04/22/2023 1 1:40 PM Migdalia Negron RN Skin Integrity Surgical incision 04/22/2023 11: 40 PM CDT Migdalia Dickens RN Skin Turgor Non-tenting 04/22/2023 11:40 PM CDT Migdalia Dickens RN Integumentary Additional Assessments Yes-Clem 04/22/2023 11:40 PM CDT Migdalia Dickens RN Integumentary (WDL) X 04/22/2023 1 1:40 PM CDT Migdalia Dickens RN Skin Location See LDA, abdomen 04/22/2023 11:4 0 PM CDT Migdalia Dickens RN * Question Answer Date of Assessment Author Edema Trace 04/21/2023 7:00 AM CDT Мария Ocampo RN RUE Edema No pitting 04/21/2023 7:00 PM CDT Jody Hodge RN Edema Generalized;Right up per extremity 04/21/2023 7:00 PM CDT Jody Haque RN * Question Answer Date of Assessment Author Affect Calm 04/22/2023 11:40 PM CDT Migdalia Alexandra RN Mood Content 04/22/2023 11:40 PM CDT Migdalia Alexandra RN * Question Answer Date of Assessment Author Percent Meal Eaten (%) 75 04/22/2023 1:45 PM CDT Chloe Rodriguez RN * Question Answer Date of Assessment Author BP Location Right arm 04/22/2023 7:41 PM CDT [place] BP Method Automatic 04/22/2023 7:41 PM CDT [place] * Question Answer Date of Assessment Author Bed In Lowest Position Yes 04/22/2023 10:37 P M CDT Migdalia Dickens RN Bed Wheels Locked Yes 04/22/2023 10:37 PM CDT Migdalia Dickens RN * Fall Risk Interventions Question Answer Date of Assessment Author All Low Fall Interventions Applied Yes 04/22/2023 7:30 PM CDT Migdalia Dickens, MAN All Moderate Fall Interventions Applied Yes 04/22/2023 7:30 PM CDT Migdalia Dickens RN All High Fall Risk Interventions Applied Yes 04/22/2023 7:30 PM CDT Migdalia Dickens RN All High Risk Interventions EXCEPT: Bed alarm 04/22/2023 7:30 PM CDT Migdalia Dickens RN Additional Interventions Applied Other (Comment) 04/22/2023 1:40 PM CDT Chloe Rodriguez RN Reason For Exception(s) Patient on bedrest 04/22/2023 7:30 PM CDT Migdalia Dickens RN * Question Answer Date of Assessment Author Hygiene Moisture barrier 04/22/2023 3:00 PM MARISELAT Chloe Rodriguez RN Oral Care Mouth suctioned;Mout h swabbed 04/22/2023 12:00 AM CDT Jody Haque RN Hygiene Level of Assistance Maximum assist 04/22/2023 3:00 PM MARISELAT Chloe Rodriguez RN Toileting: Assistance with Perineal hygiene 04/22/2023 3:00 PM MARISELAT Chloe Rodriguez RN Toileting: Level of assistance Dependent 04/21/2023 7:00 AM MARISELAT Мария Hutchinson RN Perineal Care Zuleyka Care 04/22/2023 3:00 PM MARISELAT Chloe Rodriguez RN Linens Partial linen change (Comment) 04/22/2023 3:00 PM MARISELAT Chloe Rodriguez RN Bath Bathed/showered with chlorhexidine (CHG) 04/22/2023 3:00 PM MARISELAT Chloe Rodriguez RN * ADL Screening Question Answer Date of Assessment Author Patient's Vision Adequate to Safely Complete Daily Activities Yes 04/19/2023 2:27 PM CDT David Fritz RN Patient's Judgement Adequate to Safely Complete Daily Activities Yes 04/19/2023 2:27 PM CDT David Fritz RN Patient's Memory Adequate to Safely Complete Daily Activities Yes 04/19/2023 2:27 PM MARISELAT Mentz, David r Jared, RN Patient Able to Express Needs/Desires Yes 04/19/2023 2:27 PM David Rubio RN Dressing Needs assistance 04/19/2023 2:27 PM Sher Kingsley RN Grooming Needs assistance 04/19/2023 2:27 PM Sher Kingsley RN Feeding Independent 04/19/2023 2:27 PM Sher Rubio RN Bathing Needs assistance 04/19/2023 2:27 PM Sher Kingsley RN Toileting Independent 04/19/2023 2:27 PM Sher Rubio RN In/Out Bed Independent 04/19/2023 2:27 PM Sher Rubio RN Walks in Home Independent 04/19/2023 2:27 PM Sher Anderson RN Weakness of Legs Left 04/19/2023 2:27 PM Sher Kingsley RN Weakness of Arms/Hands Left 04/19/2023 2:27 PM Sher Rubio RN Hearing - Right Ear Functional 04/19/2023 2:27 PM CD T Sher Fritz RN Hearing - Left Ear Functional 04/19/2023 2:27 PM Sher Rubio RN Dominant hand? Right 04/19/2023 2:27 PM Sher Godwin RN Decline in ADLs in last 2 weeks? No 04/19/2023 2:27 PM David Rubio RN * Therapy Consults Question Answer Date of Assessment Author PT Evaluation Needed 1 04/19/2023 2:27 PM Sher Ram RN OT Evaluation Needed 1 04/19/2023 2:27 PM Sher Ram RN RESIDENT BUYER Evaluation Needed 1 04/19/2023 2:27 PM Sher Rubio RN * Assistive Devices Question Answer Date of Assessment Author Assistive Devices/DME Cane 04/19/2023 2:27 PM Sher Rubio RN * Speech/Swallow Screening Question Answer Date of Assessment Author Currently, does patient have difficulty swallowing; coughing/choking while swallowing, or feels like food is sticking No 04/19/2023 2:27 PM CDT Sher Fritz RN In the past two weeks has the patient had changes in speaking or ability to comprehend conversation No 04/19/2023 2:27 PM MARISELAT Sher Fritz RN Currently, does patient require thickened liquids or dysphagia diet No 04/19/2023 2:27 PM CDT Sher Fritz RN Patient is in need of RESIDENT BUYER Order: No RESIDENT BUYER order needed from this assessment 04/19/2023 2:27 PM CDT Sher Fritz RN documented as of this encounter Mental Status * Question Answer Entry Date Author Neuro ([facility]) X 04/21/2023 7:00 AM CDT Мария Ocampo RN * Question Answer Entry Date Author Level of Consciousness Awake;Drowsy 11:40 PM CDT Migdalia Dickens RN Orientation Oriented to person;Oriented to place 04/22/2023 11:40 PM CDT Migdalia Dickens RN Neuro ([facility]) X 04/22/2023 11:40 PM CDT Migdalia Dickens RN * Question Answer Entry Date Author Feature 3: Altered Level of Consciousness Negative 04/21/2023 7:00 AM CDT Мария Hutchinson RN Feature 1: Acute Onset or Fluctuating Course Negative 04/21/2023 7:00 AM CDT Мария Hutchinson RN Feature 2: Inattention Negative 04/21/2023 7:00 AM CDT Мария Hutchinson RN Feature 4: Disorganized Thinking Negative 04/20/2023 7:00 PM CDT Jody Haque RN Overall CAM-ICU Negative 04/21/2023 7:00 AM CDT Мария Foreman RN documented in this encounter Plan of Treatment Not on file documented as of this encounter Visit Diagnoses Not on filedocumented in this encounter Care Teams Drum Sealer Relationship Specialty Start Date End Date Stephanie Singh MD PCP - General Internal Medicine 11/09/18 08/23/24 Susan Ayala DO [address] [place] [id number] PCP - General Family Medicine 08/24/24 documented as of this encounter
--- OUTSIDE RECORDS SUMMARY | 2025-05-10 10:32 | XMS_ITS | Encounter Summary ---
Author Organization [facility] [employer] Address [address] [place] [address] Care Team Providers Care Surgical Brace Maker Name Role Phone Nayely Singh MD Primary Care Provider [phone] Encounter Details Date Type Department Care Team (Late st Contact Info) Description 05/09/2025 Orders Only [facility] Oncology and Hematology - [facility] [address] [facility] [address] [place] [address] Sascha Donohue MD [address] [facility] [place] [address] [place] [address] Malignant neoplasm of lower-outer quadrant [...] on file Legal Sex Female 5:41 AM 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 Gender Identity Not on file Sexual Orientation Not on file documented as of this encounter Plan of Treatment Upcoming Encounters Date Type Department Care Team (Late st Contact Info) Description 05/31/2025 2:30 PM 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 Office Visit [facility] Oncology and Hematology Formerly [facility] [address] [facility] [address] [place] [address] Sascha Donohue MD [address] [facility] [place] [address] [place] [address] documented as of this encounter Visit Diagnoses Diagnosis Malignant neoplasm of lower-outer quadrant of right breast of female, estrogen receptor positive (CMS/HCC) documented in this encounter Care Teams Surgical Brace Maker Relationship Specialty Start Date End Date Nayely Singh MD [address] [place] [address] PCP - General Family Practice 12/10/23 documented as of this encounter
--- OUTSIDE RECORDS SUMMARY | 2025-05-10 10:33 | XMS_ITS | Patient Health Record ---
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) Active confirmed Problem Ankle ulcer (539438185) Non-pressure chronic ulcer of left ankle with fat layer exposed (L97.322) Active confirmed Problem 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
--- OUTSIDE RECORDS SUMMARY | 2025-05-10 10:33 | XMS_ITS | Data Portability ---
Author Organization [facility] Address [address] [place] [address] Care Team Providers Care Show Host/Hostess Name Role Phone HERLINDA YA Primary Care Provider Assessment No assessment recorded. Plan of Treatment [...] By Organization Details Last Modified Time 09/05/2022 00606 Weight loss 20 pounds Exercise advised Low cholesterol diet advised Low sodium diet advised. [email or web address] Not available 09/05/2022 16:43:56 Reason for Referral None Reported. Results Created Date Observation Date Name Description Value Unit Range Abnormal Flag Note LastModifiedBy Organization Detail LastModifiedTime 06/13/20 21 06/08/2021 elect rocar diogr am No observ ation record ed. [email or web address] Not Available 2020 12:01:05 09/12/19 23 09/05/2022 elect rocar diogr am No observ ation record ed. [email or web address] Not Available 2022 15:39:43 09/13/19 23 09/11/2022 , echoc ardio gram No observ ation record ed. [facility] [address] [place] [address] Dr Moe, [place], [address], 09/18/2022 05:09:00 09/14/19 23 09/11/2022 , echoc ardio gram No observ ation record ed. [email or web address] Not Available 2022 11:28:41 Result Notes None recorded. Problems Name Problem SNOMED Code Status Onset Date Resolution Date Notes Provider Name and Address Organization Details Recorded Time Cerebrovascul ar accident 761872706 Active 2016 Julissa Ngoer [place], [place] - [facility] 7 10:22:01 Cough 63605512 Active 2016 Julissa Seg[place], [place] - [facility] 7 10:23:59 Fluttering heart 573385516 Active 2016 Julissa Seg[place], [place] - [facility] 7 10:24:08 Cramp in lower limb 327121939 Active 2016 Julissa Segundo [place], [place] - [facility] 7 10:24:16 Edema of lower extremity 435402747 Active 2016 [facility] Segundo [place] - [facility] 7 10:24:25 Chest pain 87956460 Active 2016 Julissa Segundo [place] - [facility] 7 10:24:33 Dizziness 847424702 Active 2016 Julissa Segundo [place] - [facility] 7 10:24:42 Seizure 44139599 Active 2016 Julissa Segundo [place], [place] - [facility] 7 10:24:50 Pain of joint 31255072 Active 2016 [facility] [place], [place] - [facility] 7 10:25:30 History of pulmonary embolus 753783237 Active 2016 [place], [place] - [facility] 7 14:44:32 Peripheral arterial occlusive disease 857639178 Active 2016 [place], [place] - [facility] 2 15:39:24 Deep venous thrombosis 305634820 Active 2016 Ad[place], [place] - [facility] 2 15:39:17 Dyslipidemia 680983052 Active 2016 [place], [place] - [facility] 2 15:39:20 Venous insufficiency of lower limb 286197553 Active 2016 s/p brady iliac venous stents Adrienne Lawler [place], [place] - [facility] 7 16:02:32 Notes:BLOOD CLOTS: LEGS/LUNG S Problem Notes None recorded. Medical Equipment None Reported. [...] completed Not Available Not Available Not Available se- 19 29-1 mg tabs qd 03/07 completed [...] Not Available Not Available No t Available Se- 19 Chewable daily 01/27 completed Not Available [...] in Arterial blood by Pulse oximetry Systolic And Diastolic Provider Name and Address Organization Details Last Updated DateTime 3 175.26 cm 26.3 kg/m2 40631.4 4 g 72 /min 16 /min 98 % 98 % 124/78 mm[Hg] Wero Solitario [facility] 3 15:52:16 Date Recorded Body height Body mass index (BMI) Body weight Heart rate Respiratory rate Oxygen saturation Oxygen saturation in Arterial blood by Pulse oximetry Systolic And Diastolic Provider Name and Address Organization Details Last Updated DateTime 3 175.26 cm 26.6 kg/m2 36884.6 3 g 72 /min 16 /min 98 % 98 % 124/82 mm[Hg] Wero Solitario [facility] 3 14:35:03 Date Recorded Body height Body mass index (BMI) Body weight Oxygen saturation Oxygen saturation in Arterial blood by Pulse oximetry Heart rate Systolic And Diastolic Provider Name and Address Organization Details Last Updated DateTime 2 175.26 cm 32.1 kg/m2 33667.3 4 g 98 % 98 % 69 /min 118/60 mm[Hg] PAYTON ALFARO [facility] 2 12:02:09 Date Recorded Body height Body mass index (BMI) Body weight Heart rate Oxygen saturation Oxygen saturation in Arterial blood by Pulse oximetry Systolic And Diastolic Provider Name and Address Organization Details Last Updated DateTime 3 175.26 cm 25.3 kg/m2 75471.3 g 66 /min 98 % 98 % 100/65 mm[Hg] Meredith Figueroa [facility] 3 10:21:32 Date Recorded Body height Body mass index (BMI) Body weight Oxygen saturation Oxygen saturation in Arterial blood by Pulse oximetry Heart rate Systolic And Diastolic Provider Name and Address Organization Details Last Updated DateTime 1 175.26 cm 34 kg/m2 503193. 25 g 98 % 98 % 52 /min 110/72 mm[Hg] RONEN JOSH [facility] 1 12:06:42 Social History Question Answer Notes LastModified by SubtleData Details LastModified Time Tobacco Smoking Status Former Smoker quit in 1979 Julissa baron [facility] 09/24/2016 10:26:39 What Is Your Level Of Caffeine Consumption? Heavy Information not available 09/24/2016 How Much Tobacco Do You Chew? None [email or web address] Information not available 09/24/2016 What Type Of Diet Are You Following? REGULAR [email or web address] Information not available 09/24/2016 Which Illicit Or Recreational Drugs Have You Used? No [email or web address] Information not available 09/24/2016 Live Alone Or With Others? With Others [email or web address] Information not available 09/24/2016 Marital Status [email or web address] Informatio n not available 09/24/2016 What Was The Date Of Your Most Recent Tobacco Screening? 04/14/2018 Information not available 01/21/2019 How Many Children Do You Have? 2 Information not available 09/24/2016 General Stress Level Medium [email or web address] Information not available 09/24/2016 Sex: Unknown Functional Status Question Answer Note LastModified by SubtleData Details LastModified Time What is your level of alcohol consumption? None [email or web address] Information not available 09/24/2016 Do you or have you ever used smokeless tobacco? Former smokeless tobacco user Information not available 07/06/2020 Do you or have you ever used e-cigarettes or vape? Never used electronic cigarettes Information not available 07/06/2020 What is your exercise level? Occasional [email or web address] Information not available 09/24/2016 Mental Status None recorded. Family History Relationship Description Onset Age of this Age Resolved Age Notes LastModified by Organization Details LastModified Time Mother Heart disease [email or web address] Not available 2016 10:25:52 Mother Diabetes mellitus [email or web address] Not available 2016 10:26:02 Medical History Condition Response Peripheral Arterial Disease Y Hyperlipidemia Y Deep Vein Thrombosis Y Stroke Y Blood Clot Y Gynecological HistoryNo gynecological history recorded. Obstetrics History GPAL:G 0 P 0 0 0 0 Past Encounters Encounter ID Performer Location Encounter Start Date Encounter Closed Date Diagnosis/Indication Diagnosis SNOMED-CT Code Diagnosis ICD10 Code Diagnosis IMO Codes Diagnosis Note [id number] Kishore Gonzalez MD [place] [facility] [place] [address] 09/24/2016 10:02:04 09/24/2016 12:03:04 Atypical chest pain 702892431 R07.89 Treadmill Myoview Stress test, has high Hilbert Risk score. Has Known CAD, or CAD risk equivalent . To look for any ischemia. History of pulmonary embolus 211257119 Z86.711 on xarelto Peripheral arterial occlusive disease 242278802 I73.9 Arterial [place] Deep venou s thrombosis 434317123 I82.409 Dyslipidemia 248551073 E 78.5 Needs to keep LDL less than 70, and HDL more than 40Will [place] [id number] Kishore Gonzalez MD [place] [facility] [place] [address] 10/11/2016 10:59:44 10/11/2016 14:41:29 Edema of lower extremity 343729645 R60.0 Atypical chest pain 1025 93758 R07.89 Treadmill Myoview Stress test, has high Hilbert Risk score. Has Known CAD, or CAD risk equivalent . To look for any ischemia. History of pulmonary embolus 336467556 Z86.711 on xarelto Peripheral arterial occlusive disease 645905785 I73.9 Mild Deep venou s thrombosis 402414742 I82.409 With abnormal dopplerWil l arrange for venogram and IVUS Dyslipidemia 572937217 E 78.5 Needs to keep LDL less than 70, and HDL more than 40Will [place] fating [place] [id number] Kishore Gonzalez MD [place] [facility] [place] [address] 10/22/2016 09:36:11 10/22/2016 14:06:08 Deep venous thrombosis 576921577 I82.409 With abnormal dopplerWil l arrange for venogram and IVUS Edema of l ower extremity 332058099 R60.0 Atypical chest pain 1025 47286 R07.89 Treadmill Myoview Stress test, has high Hilbert Risk score. Has Known CAD, or CAD risk equivalent . To look for any ischemia. History of pulmonary embolus 629039354 Z86.711 on xarelto Peripheral arterial occlusive disease 917934899 I73.9 Mild Dyslipidemia 999788468 E 78.5 Needs to keep LDL less than 70, and HDL more than 40Will get fating lipids for follow up Venous ins ufficiency of lower limb 753249451 I87.2 Will plan bid venous stents I spent times with her to discuss the finding and the plan including possible damage to the filter I answered all her questions She needs to stay on Xarelto [id number] Kishore Gonzalez MD [place] [facility] [place] [address] 11/05/2016 09:30:18 11/05/2016 12:11:07 Dyslipidemia 263895950 E78.5 Needs to keep LDL less than 70, and HDL more than 40Will get fating lipids for follow up Deep venou s thrombosis 301069255 I82.409 With abnormal dopplerWil l arrange for venogram and IVUS Edema of l ower extremity 894928121 R60.0 Atypical chest pain 1025 53915 R07.89 Treadmill Myoview Stress test, has high Hilbert Risk score. Has Known CAD, or CAD risk equivalent . To look for any ischemia. Venous ins ufficiency of lower limb 490965808 I87.2 s/p brady iliac venous stents She needs to stay on Xarelto History of pulmonary embolus 148815714 Z86.711 on xarelto [id number] Sumit Quintero MD [place] [facility] [place] [address] 12/17/2016 10:42:52 12/17/2016 19:04:27 Dyslipidemia 314638002 E78.5 Needs to keep LDL less than 70, and HDL more than 40Will get fating lipids for follow up Deep venou s thrombosis 591289865 I82.409 With abnormal doppler, FU duplex Edema of l ower extremity 267071020 R60.0 Atypical chest pain 1025 77956 R07.89 resolved Venous ins ufficiency of lower limb 652082786 I87.2 s/p brady iliac venous stents She needs to stay on Xarelto History of pulmonary embolus 101768731 Z86.711 on xarelto Peripheral arterial occlusive disease 257832170 I73.9 Mild Cerebrovas cular accident 879654426 I63.9 Ulcer of foot 70330276 L 97.909 [id number] Kishore Gonzalez MD [place] [facility] [place] [address] 03/11/2017 09:27:46 03/11/2017 14:52:53 Dyslipidemia 729047933 E78.5 Needs to keep LDL less than 70, and HDL more than 40Will get fating lipids for follow up Deep venou s thrombosis 640731879 I82.409 With abnormal doppler, FU duplex Atypical chest pain 1025 93160 R07.89 resolved Venous ins ufficiency of lower limb 208395908 I87.2 s/p brady iliac venous stents She needs to stay on Xarelto History of pulmonary embolus 434753831 Z86.711 on xarelto Peripheral arterial occlusive disease 738200026 I73.9 Mild Cerebrovas cular accident 163219200 I63.9 Ulcer of foot 04955287 L 97.909 Will arrange for support coordinator vein EVLT Edema of l ower extremity 683380999 R60.0 [id number] Kishore Gonzalez MD [place] [facility] [place] [address] 04/08/2017 09:47:01 04/08/2017 11:34:45 Dyslipidemia 594166663 E78.5 Needs to keep LDL less than 70, and HDL more than 40Will get fating lipids for follow up 09-26-2016 LDL 73 Deep venou s thrombosis 570239020 I82.409 With abnormal doppler US, DUPLEX, LOWER EXTREMITY 10/02/16 : No signficant PVD. Atypical chest pain 1025 11442 R07.89 resolved Venous ins ufficiency of lower limb 996607061 I87.2 s/p brady iliac venous stents She needs to stay on Xarelto History of pulmonary embolus 192056022 Z86.711 on xarelto Peripheral arterial occlusive disease 442640702 I73.9 Mild Cerebrovas cular accident 092063260 I63.9 Ulcer of foot 10390377 L 97.909 Will arrange for support coordinator vein EVLT Edema of l ower extremity 146264130 R60.0 Fluttering heart 5118176 04 R00.2 [id number] Kishore Gonzalez MD [place] [facility] [place] [address] 05/20/2017 13:43:34 05/20/2017 17:30:42 Venous insufficiency of lower limb 426165251 I87.2 s/p brady iliac venous stents She needs to stay on Xarelto Dyslipidemia 224416653 E 78.5 Needs to keep LDL less than 70, and HDL more than 40Will get fating lipids for follow up 09-26-2016 LDL 73 Deep venou s thrombosis 625209237 I82.409 With abnormal doppler US, DUPLEX, LOWER EXTREMITY 10/02/16 : No signficant PVD. History of pulmonary embolus 551127182 Z86.711 on xarelto Peripheral arterial occlusive disease 908801642 I73.9 Mild Ulcer of foot 43027012 L 97.909 Pt sent to ER for evaluation by Ortho and IV Antibiotic s. [id number] Kishore Gonzalez MD [place] [facility] [place] [address] 01/27/2018 09:46:10 02/12/2018 17:15:10 Venous insufficiency of lower limb 138337259 I87.2 s/p brady iliac venous stents She needs to stay on Xarelto Venous reflux and Duplex Will need EVLT or sclerother apy for support coordinator vein close to ulcer left leg first Dyslipidemia 133716112 E 78.5 Needs to keep LDL less than 70, and HDL more than 40Will get fating lipids for follow up 09-26-2016 LDL 73 Deep venou s thrombosis 834449533 I82.409 With abnormal doppler US, DUPLEX, LOWER EXTREMITY History of pulmonary embolus 640876724 Z86.711 On xarelto Peripheral arterial occlusive disease 570199514 I73.9 Mild Chronic ulcer of skin 19 296536 L98.499 She has a chronic ulcer to her left lower leg and right posterior [place] [id number] Kale Pugh MD [facility] Office [address] [place] [address] 02/16/2018 14:17:08 02/16/2018 15:30:54 Edema of lower extremity 329687829 R60.0 Bilateral chronic leg ulcers above medial malleolus bilaterall y reported for 7 years? support coordinator vein close to ulcer on the left on duplex a year agoDuplex veins: DVT studyReflu x vein study bilaterall yPlain x ray tibia and fibula bilaterall y.to r/o osteomyeli tis.Plasti c surgery for possible skin grafting and biopsy form ulcer edges to rule out maliganant transforma tion. Venous ins ufficiency of lower limb 312793536 I87.2 s/p brady iliac venous stents She needs to stay on Xarelto Venous reflux and Duplex Will need EVLT or sclerother apy for support coordinator vein close to ulcer left leg first Dyslipidemia 171070817 E 78.5 Needs to keep LDL less than 70, and HDL more than 40Will get fating lipids for follow up 09-26-2016 LDL 73 Deep venou s thrombosis 788969231 I82.409 With abnormal doppler US, DUPLEX, LOWER EXTREMITY History of pulmonary embolus 588669450 Z86.711 On xarelto Peripheral arterial occlusive disease 269573498 I73.9 Mild Chronic ulcer of skin 19 184109 L98.499 She has a chronic ulcer to her left lower leg and right posterior lower leg. EVLT to support coordinator vein Cerebrovas cular accident 109148629 I63.9 [id number] Kishore Gonzalez MD [facility] [address] [place] [address] 04/14/2018 10:44:26 04/15/2018 02:16:07 Edema of lower extremity 399577237 R60.0 Bilateral chronic leg ulcers above medial malleolus bilaterall y reported for 7 years ? support coordinator vein close to ulcer on the left on duplex a year ago. Duplex veins: DVT study Reflux vein study bilaterall y Chronic ulcer of skin 19 550850 L98.499 She has a chronic ulcer to her left lower leg and right posterior lower leg. Venous ins ufficiency of lower limb 733393207 I87.2 s/p brady iliac venous stents She needs to stay on Xarelto Venous reflux and Duplex Will need EVLT or sclerother apy for support coordinator vein close to ulcer left leg first Dyslipidemia 548572860 E 78.5 Needs to keep LDL less than 70, and HDL more than 40Will get fating lipids for follow up 09-26-2016 LDL 73 Deep venou s thrombosis 274321397 I82.409 With abnormal doppler US, DUPLEX, LOWER EXTREMITY FU today, R/O DVT History of pulmonary embolus 886416190 Z86.711 On xarelto Peripheral arterial occlusive disease 117305535 I73.9 Mild Cerebrovas cular accident 400010478 I63.9 Contusion of lower leg 97626668 S80.10XA Small petechial bruising to bilateral lower legs. She is on Xarelto and Full Dose ASA Chronic osteomyelitis 40 287775 M86.60 treatment and evaluation by primary care doctor [id number] Kishore Gonzalez MD [place] [facility] [place] [address] 09/29/2018 14:47:13 09/29/2018 16:08:47 Edema of lower extremity 507312898 R60.0 Bilateral chronic leg ulcers above medial malleolus bilaterall y reported for 7 years On Lasix daily. Chronic ulcer of skin 19 487022 L98.499 Is getting better now Venous ins ufficiency of lower limb 203954020 I87.2 s/p brady iliac venous stents She needs to stay on Xarelto complete 04-14-2018 Had venous doppler on 04/14/18: Negative right-side d venous Doppler study. Limited imaging of right calf veins. Reflex is noted in right popliteal vein. Dyslipidemia 034025057 E 78.5 Needs to keep LDL less than 70, and HDL more than 40Will get fating lipids for follow up 09-26-2016 LDL 73 Deep venou s thrombosis 954355349 I82.409 Had venous doppler on 04/14/18: Negative right-side d venous Doppler study. Limited imaging of right calf veins. Reflex is noted in right popliteal vein. History of pulmonary embolus 003308348 Z86.711 On xarelto Peripheral arterial occlusive disease 029856437 I73.9 Mild Cerebrovas cular accident 522228521 I63.9 at 20 years of age. She was on control at the time and was smoking as well. [id number] Kishore Gonzalez MD [facility] [address] [place] [address] 08/25/2020 09:58:27 08/25/2020 20:39:45 Venous insufficiency of lower limb 065347949 I87.2 s/p bilateral iliac venous stents ( 7) on Xarelto Venous reflux 04/14/2018 : Negative right-side d venous Doppler study. Limited imaging of right calf veins. Reflex is noted in right popliteal vein. Will repeat venous reflux Chronic ulcer of skin 19 791058 L98.499 Follows with wound clinic and vascular surgery (Dr. Jiménez) Edema of l ower extremity 846007957 R60.0 As aboveConti nue Lasix, low salt diet, and leg elevationO btain echo to evaluate for structural /functiona l disease Dyslipidemia 186910144 E 78.5 Needs to keep LDL less than 70, and HDL more than 40. 018 LDL 69Currentl y not on statin therapy Will get fasting lipids for follow-up Deep venou s thrombosis 819362541 I82.409 As above on Xarelto History of pulmonary embolus 265845738 Z86.711 on Xarelto Cerebrovas cular accident 838821204 I63.9 at 20 years of age without recurrence She was on control at the time as well as smoking. Dyspnea on exertion 6084 5006 R06.09 Lexiscan Myoview stress test, pt can not walk. Has known coronary artery disease, with atypical symptoms now [id number] Pati Ness MD [facility] [address] [place] [address] 12/22/2020 11:09:57 12/22/2020 11:54:14 Venous insufficiency of lower limb 758808762 I87.2 s/p bilateral iliac venous stents ( 7) on Xarelto Venous reflux 04/14/2018 : Negative right-side d venous Doppler study. Limited imaging of right calf veins. Reflex is noted in right popliteal vein. 11/10/20 VENOUS REFLUX Severe left sided reflux disease noted. Chronic ulcer of skin 19 760569 L98.499 Follows with wound clinic and vascular surgery (Dr. Jiménez) Edema of l ower extremity 922755387 R60.0 As aboveConti nue Lasix, low salt diet, and leg elevationO btain echo to evaluate for structural /functiona l disease Dyslipidemia 278849665 E 78.5 Needs to keep LDL less than 70, and HDL more than 40. 1:TC 146,TG 54,HDL 86,LDL 48.Current ly not on statin therapyWil l get fasting lipids for follow-up Deep venou s thrombosis 789725748 I82.409 As aboveon Xarelto History of pulmonary embolus 095011286 Z86.711 on Xarelto Cerebrovas cular accident 856589906 I63.9 at 20 years of age without recurrence She was on control at the time as well as smoking. Dyspnea on exertion 6084 5006 R06.09 Brinda negative 09/2020 Iliac vein compression syndrome 122370640 I87.1 Consider repeating IVUS 1 VENOUS REFLUX Severe left sided reflux disease noted. [id number] Kishore Gonzalez MD [place] [facility] [address] [place] [address] 06/08/2021 11:19:19 06/08/2021 12:27:42 Venous insufficiency of lower limb 065606726 I87.2 s/p bilateral iliac venous stents ( 7) on Xarelto Venous reflux 04/14/2018 : Negative right-side d venous Doppler study. Limited imaging of right calf veins. Reflex is noted in right popliteal vein. 11/10/20 VENOUS REFLUX Severe left sided reflux disease noted. Chronic ulcer of skin 19 381143 L98.499 Follows with wound clinic and vascular surgery (Dr. Jiménez) Edema of l ower extremity 374031721 R60.0 As aboveConti nue Lasix, low salt diet, and leg elevationO btain echo to evaluate for structural /functiona l disease Dyslipidemia 024628578 E 78.5 Needs to keep LDL less than 70, and HDL more than 40. 1:TC 146,TG 54,HDL 86,LDL 48.Current ly not on statin therapyWil l get fasting lipids for follow-up Deep venou s thrombosis 446456010 I82.409 As aboveon Xarelto History of pulmonary embolus 719365728 Z86.711 on Xarelto Cerebrovas cular accident 052667043 I63.9 at 20 years of age without recurrence She was on control at the time as well as smoking. Dyspnea on exertion 6084 5006 R06.09 Brinda negative 09/2020 Iliac vein compression syndrome 858355098 I87.1 Consider repeating IVUS 1 VENOUS REFLUX Severe left sided reflux disease noted. Pre-surger y evaluation 889801054 Z01.818 There is no cardiac contraindi cation for the procedure. The planned procedure would be within acceptable risk. Patient may stop taking Xarelto for 2days prior to the procedure. [id number] Kishore Gonzalez MD [facility] [address] [place] [address] 01/18/2022 11:41:11 01/18/2022 12:37:36 Venous insufficiency of lower limb 083469788 I87.2 s/p bilateral iliac venous stents ( 7) on Xarelto Venous reflux 04/14/2018 : Negative right-side d venous Doppler study. Limited imaging of right calf veins. Reflex is noted in right popliteal vein. 11/10/20 VENOUS REFLUX Severe left sided reflux disease noted. Chronic ulcer of skin 19 025341 L98.499 Has improved but not resolved completely .Calcium of 11.4.Concepción nue to follow with wound clinic and vascular surgery (Dr. Jiménez) Edema of l ower extremity 095513740 R60.0 As aboveConti nue Lasix, low salt diet, and leg elevationO btain echo to evaluate for structural /functiona l disease Dyslipidemia 547738108 E 78.5 Needs to keep LDL less than 70, and HDL more than 40. 1:TC 146,TG 54,HDL 86,LDL 48.Current ly not on statin therapyWil l get fasting lipids for follow-up Deep venou s thrombosis 733203519 I82.409 As aboveon Xarelto History of pulmonary embolus 000791786 Z86.711 on Xarelto Cerebrovas cular accident 161344797 I63.9 at 20 years of age without recurrence She was on control at the time as well as smoking. Dyspnea on exertion 6084 5006 R06.09 Brinda negative 09/2020 Iliac vein compression syndrome 233519989 I87.1 Venous duplex and reflux studyCompr ession stockings trial 11/10/20 VENOUS REFLUX Severe left sided reflux disease noted. [id number] Kishore Gonzalez MD [place] [facility] [place] [address] 09/05/2022 15:39:06 09/05/2022 16:47:21 Venous insufficiency of lower limb 540381180 I87.2 s/p bilateral iliac venous stents ( 7) on Xarelto Venous reflux 04/14/2018 : Negative right-side d venous Doppler study. Limited imaging of right calf veins. Reflex is noted in right popliteal vein. Chronic ulcer of skin 19 819135 L98.499 Resolved Edema of l ower extremity 221316135 R60.0 As aboveConti nue Lasix, low salt diet, and leg elevationO btain echo to evaluate for structural /functiona l disease Dyslipidemia 174637208 E 78.5 Needs to keep LDL less than 70, and HDL more than 40. 1:TC 146,TG 54,HDL 86,LDL 48.Current ly not on statin therapyWil l get fasting lipids for follow-up Deep venou s thrombosis 102560559 I82.409 As aboveon Xarelto History of pulmonary embolus 107582557 Z86.711 on Xarelto Cerebrovas cular accident [id number] I63.9 at 20 years of age without recurrence She was on control at the time as well as smoking. Dyspnea on exertion 6084 5006 R06.09 Brinda negative 09/2020 Iliac vein compression syndrome [id number] I87.1 Venous duplex and reflux studyCompr ession stockings trial 11/10/20 VENOUS REFLUX Severe left sided reflux disease noted. [id number] Kishore Gonzalez MD [facility] [address] [place] [address] 09/17/2022 14:08:58 09/17/2022 15:13:19 Venous insufficiency of lower limb 503602170 I87.2 s/p bilateral iliac venous stents ( 7) on Xarelto Venous reflux 04/14/2018 : Negative right-side d venous Doppler study. Limited imaging of right calf veins. Reflex is noted in right popliteal vein. Chronic ulcer of skin 19 380548 L98.499 Resolved Edema of l ower extremity [id number] R60.0 As aboveConti nue Lasix, low salt diet, and leg elevation Dyslipidemia [id number] E 78.5 Needs to keep LDL less than 70, and HDL more than 40. 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 [id number] Kishore Gonzalez MD [facility] [address] [place] [address] 03/07/2023 10:04:02 12/31/2023 13:17:14 Health Concerns Section Related Observation LastModified by Organization Detai ls LastModified Time None Recorded Concern Status LastModified by Organization Details LastModified Time None Recorded Advance Directives Directive None Recorded Payers Insurance Date Sequence Insurance Name Policy Number Policy Payne Covered Member ID Payne Member ID Guarantor Name 08/14/2023 2 [place] [employer] Racquel Thomas [id number] Racquel Thomas 03/07/2023 1 [place] Racquel Thomas [id number] Racquel Thomas 09/28/2017 PAYMENT PLAN Racquel Hagerwood 08/14/2023 1 [employer] (MEDICARE REPLACEMENT/AD VANTAGE - PPO) Racquel Hagerwood [id number] Racquel Whitehouse 03/07/2023 1 [employer] (MEDICARE REPLACEMENT/AD VANTAGE - HMO) Racquel Hagerwood [id number] Racquel Hagerwood 01/04/2025 1 [facility] (MEDICARE REPLACEMENT/AD VANTAGE - HMO) [id number] Racquel Hagerwood [id number] Racquel Whitehouse 03/07/2023 2 [employer] (MEDICARE REPLACEMENT/AD VANTAGE - HMO) Racquel Hagerwood [id number] Racquel Whitehouse 08/14/2023 1 [id number] (MEDICARE REPLACEMENT HMO) Racquel Hagerwood [id number] Racquel Whitehouse 08/14/2023 1 [employer]UE [employer] MEDICARE ADV[place] [id number] Racquel Hagerwood [id number] Racquel Whitehouse Notes Date Note Type Note Provider Name and Address Organization Details Recorded Time 06/08/2021 text/html 06/08/21CC : Cardiac follow up, .leg [id number] white woman with a PMH of PE [...] the right patellofemoral compartment. 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 Kishore Gonzalez MD [address] [place], [address], [facility] 09/17/2022 15:10:39 03/07/2023 text/html no cc Tatyana baron, [facility] 12/31/2023 13:17:13 OBGyn Episode No OBEpisode recorded.
--- OUTSIDE RECORDS SUMMARY | 2025-05-10 10:33 | XMS_ITS | Clinical Summary ---
Author Organization [facility] at the [facility] Office [facility] Address [address] [place] [address] Care Team Providers Care Economics Analyst Name Role Phone Susan Ayala DO Primary Care Provider Allergies Active Allergy Reactions Criticality Noted Date Comments No Known Allergies Other (See comments) Low 019 Reaction: Medications rivaroxaban (Xarelto) 20 mg tablet Take 1 tablet (20 mg total) by mouth daily with dinner 30 tablet 05/18/20 23 Active tamoxifen (NOLVADEX) 20 mg tablet Take 1 tablet (20 mg total) by mouth daily 08/03/19 25 Active methadone (DOLOPHINE) 10 mg tablet Take 1 tablet by mouth 2 (two) times a day Active bismuth tribrom-petrol atum,wh (Xeroform) 5 X 9 bandage Apply 1 Units topically daily 30 each 2 01/06/20 25 Active potassium chloride (KAYCIEL) solution 20 mEq/15 mL Take 15 mL (20 mEq total) by mouth daily Active montelukast (SINGULAIR) 10 mg tablet Take 1 tablet (10 mg total) by mouth nightly Active oxyCODONE (ROXICODONE) 30 mg immediate release tablet Take 1 tablet (30 mg total) by mouth 2 (two) times a day as needed for pain Active cannabidiol, CBD, (EPIDIOLEX) 100 mg/mL solution Take by mouth 2 (two) times a day Patient reports she takes CBD gummies as seizure prophylaxis 10/16/2 025 Discontinu ed(Therapy completed) atorvastatin (LIPITOR) 20 mg tablet Take 1 tablet (20 mg total) by mouth daily 30 tablet 05/18/20 Discontinu ed(Therapy completed) dulaglutide (TRULICITY) 0.75 mg/0.5 mL pen injector Inject 0.5 mL (0.75 mg total) under the skin every 7 days 2 mL 05/18/20 Discontinu ed(Therapy completed) aspirin 325 mg enteric coated tablet Take 1 tablet (325 mg total) by mouth daily 30 tablet 11 05/18/20 Discontinu ed(Therapy completed) ascorbic acid (VITAMIN C) 500 mg tablet,chewabl e Take 1 tablet/chew tab (500 mg total) by mouth 2 (two) times a day 60 tablet/chew tab 05/18/20 Discontinu ed(Therapy completed) gabapentin (NEURONTIN) 100 mg capsule Take 1 capsule (100 mg total) by mouth 3 (three) times a day 90 capsule 05/18/20 Discontinu ed(Therapy completed) multivit-min #56-FA-vit K-Q10 (DEKAS PLUS) 200 mcg-1,000 mcg-10 mg tablet,chewabl e Take 1 tablet/chew tab by mouth daily 30 tablet/chew tab 05/18/20 Discontinu ed(Stop Taking at Discharge) pantoprazole DR (PROTONIX) 40 mg EC tabletIndicati ons:Treatment of Non-Bleeding Gastric Disorder Take 1 tablet (40 mg total) by mouth daily 30 tablet 05/18/20 Discontinu ed(Therapy completed) zinc sulfate (ZINCATE) 50 mg zinc (220 mg) capsule Take 1 capsule (220 mg total) by mouth daily 30 capsule 05/18/20 Discontinu ed(Therapy completed) oxyCODONE (ROXICODONE) 10 mg tabletIndicati ons:Pain Take 1 tablet (10 mg total) by mouth every 4 (four) hours as needed for pain for up to 15 doses 05/18/20 Discontinu ed(Alterna te therapy) omeprazole (PriLOSEC) 20 mg capsule Take 1 capsule (20 mg total) by mouth daily Discontinu ed(Therapy completed) polyethylene glycol (MIRALAX) 17 gram packet DISSOLVE 2 PACEKTS INTO 8 OUCNES OF FLUID DAILY AND DRINK Discontinu ed(Therapy completed) ascorbic acid (ascorbic acid with brittany hips) 500 mg tablet,chewabl e Take 1 tablet/chew tab (500 mg total) by mouth daily Discontinu ed(Therapy completed) tolterodine (DETROL) 2 mg tablet Take 1 tablet (2 mg total) by mouth 2 (two) times a day Discontinu ed(Therapy completed) triamcinolone (Kenalog) 10 mg/mL injection Take 10 mg by injection route. 12/11/19 25 Discontinu ed(Therapy completed) triamcinolone (KENALOG) 0.1 % cream triamcinolone acetonide 0.1 % topical cream IZABEL EXT TO DRY ITCHY AREA ON LOWER EXTREMITIES PRN D Discontinu ed(Therapy completed) atorvastatin (LIPITOR) 20 mg tablet Discontinu ed(Therapy completed) furosemide (LASIX) 40 mg tablet Take 1 tablet (40 mg total) by mouth daily Discontinu ed(Stop Taking at Discharge) cholecalcifero l, vitamin D3, 1,000 unit tablet,chewabl e Take 1 tablet/chew tab by mouth daily Discontinu ed(Therapy completed) cyanocobalamin (Vitamin B-12) 2,500 mcg tablet, sublingualIndi cations:Preven tion of Vitamin B12 Deficiency Take 1 tablet (2,500 mcg total) by mouth daily Discontinu ed(Therapy completed) doxycycline (VIBRAMYCIN) 100 mg capsule Take 1 tablet/capsule (100 mg total) by mouth 2 (two) times a day 60 tablet/capsu le 3 03/22/20 25 Discontinu ed(Stop Taking at Discharge) ferrous sulfate 325 mg (65 mg of elemental iron) tabletIndicati ons:Iron Deficiency Anemia Take 1 tablet (325 mg total) by mouth daily with breakfast Discontinu ed(Therapy completed) doxycycline (VIBRAMYCIN) 100 mg capsule Take 1 tablet/capsule (100 mg total) by mouth 2 (two) times a day for 7 days 14 tablet/capsu le 04/21/20 25 025 ciprofloxacin (CIPRO) 500 mg tablet Take 1 tablet (500 mg total) by mouth 2 (two) times a day for 7 days 14 tablet 04/21/20 25 025 Active Problems Problem Noted Date Diagnosed Date Sepsis, due to unspecified o rganism, unspecified whether acute organ dysfunction present 04/14/2025 Gangrene 04/07/2025 Hypotension 01/29/2025 Venous ulcer 01/28/2025 Lower extremity ulceration, left, with fat layer exposed 01/27/2025 Ulcer with gangrene 01/27/2025 Encounter for ostomy nurse consultation 08/22/19 Coronary artery disease invo [place]ving [place] coronary artery of [place] heart without angina pectoris 05/23/2023 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) 05/19/2023 Hyperlipidemia, unspecified 05/18/2023 Peripheral vascular disease 05/18/2023 Pulmonary embolism 05/18/2023 At high risk for malnutrition 04/24/2023 Assessment & Plan (05/17/2023 2:11 PM SHOE ASSOCIATE): 04/24 advanced to regular diet yesterday, low [...] 04/22/2023 Assessment & Plan (05/17/2023 2:12 PM SHOE ASSOCIATE): 04/22 Reportedly patient presented to OSH from home, baseline function is relatively independent with spousal support and walker vs cane for mobility, case management investigating, anticipate some type of placement when medically stable, PT/OT ordered 04/23 PT recs for inpatient rehab, pillowcase cutter notified, ADD 04/25 04/24 patient agreeable to short term IPR placement in [place], [place] area -- case management aware, [facility], [facility] --- additional discussions [...] medical conditions F/u prior vascular surgeon for penitentiary evaluation of 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 F/u [facility] for wound check and staple removal Acute pain 04/22/2023 Assessment & Plan (05/17/2023 2:13 PM SHOE ASSOCIATE): 04/22 pain controlled with lidoderm patches and dilaudid IV PRN, passed FACILITIES PROJECT MANAGER eval today, liberalize to oral multimodal regimen [...] 04/22/2023 Assessment & Plan (05/05/2023 10:42 AM SHOE ASSOCIATE): Patient reports symptoms controlled with CBD gummies - low threshold for marinol - zofran, compazine PRN 04/23 start marinol scheduled 04/24 symptoms controlled 04/27-present: No complaints of nausea. ABLA (acute blood loss anemia) 04/22/2023 Assessment & Plan (05/10/2023 12:25 PM SHOE ASSOCIATE): 04/22 hgb dropped post-op likely dilutional + [...] bedside swallow in ICU - 04/22 passed FACILITIES PROJECT MANAGER eval for reg/thin, assist with feeds iso L hemiplegia RESOLVED DAKOTA (acute kidney injury) 04/20/2023 Assessment & Plan (04/22/2023 10:45 AM CDT): DAKOTA likely due to hypovolemia and sepsis 04/20: Low UOP, BUN 45 (37), Cr 1.31 (0.89). Continue management per ICU. 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 SBO r/t parastomal hernia incarceration. 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 Would recommend daily changes and follow up in the Wound Clinic at [facility] for further evaluation and treatment. Follow up in the next couple of weeks with a venous reflux exchange administrator study Ulcer of left lower extremity, limited to breakd own of skin 11/17/2018 Assessment & Plan (01/05/2025 11:34 AM CDT): Continue daily dressing changes to the ulceration with Xeroform Kerlix and Sander wrap. Also referring to the wound clinic and [facility] for further evaluation and management follow-up in the next couple of weeks with a venous reflux and exchange administrator study. S/P IVC filter 12/25/2016 Venous insufficiency of leg 12/12/2016 Assessment & Plan (02/03/2025 1:39 PM CDT): Patient left the hospital AMA after recently undergoing surgical debridement of bilateral ankles. Patient was awaiting disposition from [place] stating she had been told that she could leave the hospital soon for the past 2 days and decided to finally just leave. She was on IV antibiotics at that time is not on any antibiotics currently. States she does have some dressings at home is not sure when she is supposed to follow-up with the Wound Clinic. Discussed venous reflux results with the patient who ultimately would be a candidate for exchange administrator vein ligation to both lower extremities however at this time strongly recommended consistent follow-up with the Wound Care Clinic for management and treatment of her wounds and edema for any further procedure is scheduled. Patient voiced understanding and who is with her states he will call the wound clinic and we will schedule an appointment as soon as possible. I also strongly encouraged daily dressing changes to the to her wounds to her ankles and we will call in antibiotics based off her previous wound cultures. Can follow-up in the next 1-2 months for re-evaluation Colostomy in place 11/25/2016 History of heart artery stent 11/25/2016 Deep venous thrombosis 10/19/2016 Assessment & Plan (05/16/2023 10:06 AM SHOE ASSOCIATE): DVT (2012, on Xarelto, IVC filter) -Last [...] Peripheral arterial occlusive disease 10/19/2016 Cerebrovascular accident 09/24/2016 Assessment & Plan [...] on discharge, f/u with PCP Problem 02/04/2013 Encounters Date Type Department Care Team Description 05/05/2025 11:15 AM SHOE ASSOCIATE Orders Only [facility] 2 Wound Care [address] [place] [address] 04/20/2025 1:22 PM CDT Anesthesia Event [facility] OR [address] [place] [id number] Vickie Nair MD Taylor-White, Carlotta A., NP 04/20/2025 12:46 PM CDT - 04/20/2025 2:26 PM CDT Surgery [facility] OR [address] [place] [id number] José Luis Jiménez MD BILATERAL LOWER EXTREMITY DEBRIDEMENT 04/14/2025 2:38 PM CDT - 04/21/2025 12:49 PM CDT Hospital Encounter [facility] [address] [place] [id number] Jude Schroeder MD Al Furgani, Mahmud Mustafa, MD Venkataramanan, Akash, MD Sepsis, due to unspecified organism, unspecified whether acute organ dysfunction present (HCC) (Primary Dx); Gangrene (HCC); Methadone maintenance therapy patient; Malignant neoplasm of right female breast, unspecified estrogen receptor status, unspecified site of breast (HCC); Cellulitis of lower extremity, unspecified laterality Discharge Disposition: Discharge to home or self care 04/14/2025 10:30 AM CDT Pre-Admission Testing [facility] PreAdmission Testing [address] [place] [address] Pre-op testing (Primary Dx); Gangrene (HCC) 04/14/2025 8:26 AM CDT - 04/14/2025 11:59 PM CDT Hospital Encounter [facility] [address] [place] [id number] Malignant neoplasm of lower-outer quadrant of right female breast, unspecified estrogen receptor status (HCC); Estrogen receptor positive status (ER+) Discharge Disposition: Discharge to home or self care 04/12/2025 Orders Only [facility] PreAdmission Testing [address] [place] [address] Awilda Kennedy RN 04/07/2025 10:45 AM CDT Orders Only [facility] 2 Wound Care [address] [place] [address] 04/07/2025 Telephone [facility] Vascular and Vein Surgery [address] [place] [address] José Luis Jiménez MD 03/22/2025 2:30 PM CDT Orders Only [facility] 2 Wound Care [address] [place] [address] 03/08/2025 3:30 PM CDT Orders Only [facility] Office Building 2 Wound Care [address] [place] [address] 02/17/2025 1:00 PM CDT Orders Only [facility] Office Building 2 Wound Care [address] [place] [address] from Last 3 Months Surgical History Surgery Date Site/Laterality Comments SECTION x 2 CEREBRAL ANEURYSM REPAIR age 20 TOTAL PROCTECTOMY 06/30/2012 - 06/29/2013 total proctocolectomy with end ileostomy EXPLORATORY LAPAROTOMY 04/19/2023 Exploratory laparotomy, extensive lysis of adhesions, small bowel resection, ileostomy resection HERNIA REPAIR umbilical MASTECTOMY Right 2023 Medical History Medical History Date Comments Stroke (HCC) 1981 History of colon resection 2012 with colostomy Encounter for ostomy nurse consultation 08/22/19 24 History of cerebral aneurysm age 20 Left hemiparesis (HCC) from cere bral aneurysm age 20; found in EMR History of pneumonia found in EM R Venous ulcer of ankle (HCC) bila teral History of GI bleed found in EMR Colostomy in place (HCC) History of DVT (deep vein thrombosis) legs History of seizures x 1 seizure 1980 History of breast cancer right b reast; mastectomy 2023 with chemo History of chemotherapy for [facility] [place] Wears dentures Venous insufficiency History of falling Pt reports, I fall all the time Gangrene (HCC) CVA (cerebral vascular accident) ([facility]) unable to use left arm Wears glasses for distance Ambulates with cane usually uses cane Family History Medical History Relation Name Comments Diabetes Mother Emphysema Mother Relation Name Status Comments Father Mother Social History Tobacco Use Types Packs/Day Years Used Date Smoking Tobacco: Former Cigarettes 1 1981 Passive Smoke Exposure: Past Smokeless Tobacco: Never Comments:Started smoking age 20. Smoked for 2 years Social Connection and Isolation Panel Answer Date Recorded In a typical week, how many times do you talk on the phone with family, friends, or neighbors? Three times a week 01/29/20 How often do you get togethe r with friends or relatives? Twice a week 01/28/2025 How often do you attend chur ch or jewish services? Never 01/28/2025 Do you belong to any clubs o r organizations such as synagogue groups, unions, fraternal or athletic groups, or school groups? No 01/28/2025 How often do you attend meet ings of the clubs or organizations you belong to? Never 01/28/2025 Are you , , di vorced, , never , or living with a partner? Living with partner 01/28/2025 Overall Financial Resource Strain (CARDIA) Answe r Date Recorded How hard is it for you to pa y for the very basics like food, housing, medical care, and heating? Not very hard 01/28/2025 PRAPARE - Transportation Answer Date Re corded In the past 12 months, has l ack of transportation kept you from medical appointments or from getting medications? No 06/2024 In the past 12 months, has l ack of transportation kept you from meetings, work, or from getting things needed for daily living? No 01/28/2025 Housing Stability Vital Sign Answer Sukhwinder e Recorded In the last 12 months, was t here a time when you were not able to pay the mortgage or rent on time? No 01/28/2025 In the past 12 months, how m any times have you moved where you were living? 0 01/28/2025 At any time in the past 12 m [facility], were you homeless or living in a fci (including now)? No 01/28/2025 Social Connection and Isolation Panel Answer Date Recorded In a typical week, how many times do you talk on the phone with family, friends, or neighbors? Patient declined 04/15/2025 How often do you get togethe r with friends or relatives? Patient declined 04/15/2025 How often do you attend synagogue or jewish serv ices? Patient declined 04/15/2025 Do you belong to any clubs o r organizations such as synagogue groups, unions, fraternal or athletic groups, or school groups? Patient declined 04/15/2025 How often do you attend meet ings of the clubs or organizations you belong to? Patient declined 04/15/2025 Are you , , di vorced, , never , or living with a partner? Patient declined 04/15/2025 AUDIT-C Answer Date Recorded Q1: How often do you have a drink containing alc ohol? Never 04/14/2025 Average Number of Drinks Not on file 025 Frequency of Binge Drinking Not on file 03/30 Overall Financial Resource Strain (CARDIA) Answe r Date Recorded How hard is it for you to pa y for the very basics like food, housing, medical care, and heating? Patient declined 04/15/2025 Hunger Vital Sign Answer Date Recorded Within the past 12 months, y ou worried that your food would run out before you got the money to buy more. Patient declined Within the past 12 months, t he food you bought just didn't last and you didn't have money to get more. Patient declined PRAPARE - Transportation Answer Date Re corded In the past 12 months, has l ack of transportation kept you from medical appointments or from getting medications? Patient declined 04/15/2025 In the past 12 months, has l ack of transportation kept you from meetings, work, or from getting things needed for daily living? Patient declined 04/15/2025 Housing Stability Vital Sign Answer Sukhwinder e Recorded In the last 12 months, was t here a time when you were not able to pay the mortgage or rent on time? Patient declined 04/15/20 25 Number of Times Moved in the Last Year Not on fi le 04/15/2025 At any time in the past 12 m [facility], were you homeless or living in a fci (including now)? Patient declined 04/15/2025 [facility] Utilities Answer Date Recorded In the past 12 months has [facility] [employer], gas, oil, or water [employer] threatened to shut off services in your home? Patient declined 04/15/2025 Personal Safety Answer Date Recorded Have you ever been in or are you currently in a harmful physical or emotional relationship or is someone making you feel afraid or unsafe? Denies 04/14/2025 Comments No Sex and Gender Information Value Date Recorded Sex Assigned at Not on file Legal Sex Female 4:26 AM SHOE ASSOCIATE Gender Identity Not on file Sexual Orientation Not on file Last Filed Vital Signs Vital Sign Reading Time Taken Comments Blood Pressure 93/46 04/21/2025 8:10 AM CDT Pulse 57 04/21/2025 8:10 AM CDT Temperature 36.7 C (98.1 F) 04/21/2025 8:10 AM CDT Respiratory Rate 18 04/21/2025 8:10 AM CDT Oxygen Saturation 100% 04/21/2025 8:10 AM CDT Inhaled Oxygen Concentration - - Weight 70.7 kg (155 lb 13.8 oz) 04/14/2025 7:46 PM CDT Height 180.3 cm (5' 11) 04/14/2025 7:46 PM CDT Body Mass Index 21.74 04/14/2025 7:46 PM CDT Plan of Treatment Health Maintenance Due Date Last Done Comments Colon Cancer Screening-Colonoscopy 1962 Depression Screening 1962 Hepatitis C Screening 1962 Hepatitis B Screening 1980 Regular Well Visit/Exam 18-64 1980 Pneumococcal vaccine <65 (2 of 2 - PCV) 03/17/2021 03/17/2020 Zoster Vaccine (2 of 2) 09/19/2022 07/25/2022 Breast Cancer Screening-Mammogram 02/12/2024 023 Influenza Vaccine (#1) 2025 3, 04/23/2022, 03/17/2020 DTaP/Tdap/Td Vaccine (2 - Td or Tdap) 04/03/2032 04/03/2022 Colon Cancer Screening-CT Colonography Discontinued 07/17/2012 Colon Cancer Screening-DNA Stool Discontinued 07/17/19 13 Colon Cancer Screening-Sigmoidoscopy Discontinued 07/17/2012 Colon Cancer Screening-FIT Discontinued 08/26, 08/25/2013, 08/04/2012, Additional history exists Medical Devices Implanted Type Area Senior Quality Technician Device Identifier Shelf Expiration Date Model / Serial / Lot [employer] Nancy Seprafilm 6x5in Barrier Adhesion Sterile Disposable Latex Free [id number] - [id number] Implanted:Qty : 1 on 04/19/2023 by Abran Cardenas DO at [facility] Other - see comments N/A: Abdomen [employer] Nancy [id number] 04/25/2024 [id number] / / [id number] [employer] Seprafilm 6x5in Barrier Adhesion Sterile Disposable Latex Free [id number] - [id number] Implanted:Qty : 1 on 04/19/2023 by Abran Cardenas DO at [facility] Other - see comments N/A: Abdomen [employer] Nancy [id number] 03/27/2024 [id number] / / [id number] Procedures Procedure Name Priority Date/Time Associated Diagnosis Comments BLOOD SMEAR REVIEW Routine 04/21/2025 6: 34 AM CDT EGFR Routine 04/21/2025 6:34 AM CDT DIFFERENTIAL AUTO Routine 04/21/2025 6:3 4 AM CDT CBC WITH AUTO DIFFERENTIAL Routine 04/21/2025 6:34 AM CDT BASIC METABOLIC PANEL Routine 04/21/2025 6:34 AM CDT EGFR Routine 04/21/2025 5:04 AM CDT DIFFERENTIAL AUTO Routine 04/21/2025 5:0 4 AM CDT BASIC METABOLIC PANEL Routine 04/21/2025 5:04 AM CDT CBC WITH AUTO DIFFERENTIAL Routine 04/21/2025 5:04 AM CDT ANTIBODY SCREEN Timed 04/20/2025 3:03 PM CDT ABO/RH Timed 04/20/2025 3:03 PM CDT TYPE AND SCREEN Timed 04/20/2025 3:03 PM CDT TISSUE AEROBIC AND ANAEROBIC CULTURE AND GRAM STAIN Routine 04/20/2025 1:56 PM CDT MI AN PROCEDURE PLACEHOLDER Routine 04/20/2025 1:42 PM CDT MI AN ELECTIVE ENDOTRACHEAL AIRWAY Routine 04/20/2025 1:42 PM CDT INCISION AND DRAINAGE - LEG 04/20/2025 1:22 PM CDT Gangrene (HCC) EGFR Routine 04/20/2025 5:37 AM CDT DIFFERENTIAL AUTO Routine 04/20/2025 5:3 7 AM CDT CBC WITH AUTO DIFFERENTIAL Routine 04/20/2025 5:37 AM CDT BASIC METABOLIC PANEL Routine 04/20/2025 5:37 AM CDT VANCOMYCIN LEVEL TROUGH Timed 04/19/2025 11:26 AM CDT EGFR Routine 04/19/2025 4:24 AM CDT DIFFERENTIAL AUTO Routine 04/19/2025 4:2 4 AM CDT COMPREHENSIVE METABOLIC PANEL Routine 04/19/2025 4:24 AM CDT CBC WITH AUTO DIFFERENTIAL Routine 04/19/2025 4:24 AM CDT EGFR Routine 04/18/2025 5:33 AM CDT DIFFERENTIAL AUTO Routine 04/18/2025 5:3 3 AM CDT CBC WITH AUTO DIFFERENTIAL Routine 04/18/2025 5:33 AM CDT BASIC METABOLIC PANEL Routine 04/18/2025 5:33 AM CDT VANCOMYCIN LEVEL TROUGH Timed 04/17/2025 11:01 AM CDT EGFR Routine 04/17/2025 5:25 AM CDT RETICULOCYTES Routine 04/17/2025 5:25 AM CDT FERRITIN Routine 04/17/2025 5:25 AM CDT METHYLMALONIC ACID, SERUM Routine 04/17/2025 5:25 AM CDT BASIC METABOLIC PANEL Routine 04/17/2025 5:25 AM CDT HEMOGLOBIN AND HEMATOCRIT Timed 04/16/2025 11:35 PM CDT HEMOGLOBIN AND HEMATOCRIT Timed 04/16/2025 5:54 PM CDT HEMOGLOBIN AND HEMATOCRIT Timed 04/16/2025 11:39 AM CDT POC BLOOD GAS AND CHEMISTRIES, VENOUS Routine 04/16/2025 8:24 AM CDT HEMOGLOBIN AND HEMATOCRIT Timed 04/16/2025 5:44 AM CDT EGFR Routine 04/16/2025 4:13 AM CDT HEMOGLOBIN AND HEMATOCRIT STAT 04/16/2025 4:13 AM CDT BASIC METABOLIC PANEL Routine 04/16/2025 4:13 AM CDT TRANSFUSE RED BLOOD CELLS Timed 04/15/2025 11:44 PM CDT HEMOGLOBIN AND HEMATOCRIT Timed 04/15/2025 11:40 PM CDT VANCOMYCIN LEVEL TROUGH Timed 04/15/2025 11:39 PM CDT PREPARE RBC Timed 04/15/2025 9:06 PM CDT HEMOGLOBIN AND HEMATOCRIT Timed 04/15/2025 7:04 PM CDT HEMOGLOBIN AND HEMATOCRIT Timed 04/15/2025 12:05 PM CDT IRON PROFILE W/ IBC Routine 04/15/2025 1 2:05 PM CDT BLOOD CULTURE STAT 04/15/2025 12:05 PM CDT BLOOD CULTURE STAT 04/15/2025 12:03 PM CDT TRANSFUSE RED BLOOD CELLS Timed 04/15/2025 6:52 AM CDT PREPARE RBC Timed 04/15/2025 3:03 AM CDT EGFR STAT 04/15/2025 2:23 AM CDT B ABO / RH CONFIRMATION TESTING STAT 04/15/2025 2:23 AM CDT SEPSIS LACTATE WITH REFLEX STAT 04/15/2025 2:23 AM CDT COMPREHENSIVE METABOLIC PANEL STAT 04/15/2025 2:23 AM CDT AEROBIC AND ANAEROBIC CULTURE AND GRAM STAIN Routine 04/14/2025 11:01 PM CDT CBC WITHOUT DIFFERENTIAL Routine 04/14/2025 10:28 PM CDT BLOOD CULTURE STAT 04/14/2025 7:28 PM CDT EGFR STAT 04/14/2025 7:18 PM CDT MAGNESIUM STAT 04/14/2025 7:18 PM CDT PHOSPHORUS STAT 04/14/2025 7:18 PM CDT DIFFERENTIAL AUTO STAT 04/14/2025 7:1 8 PM CDT SEPSIS LACTATE WITH REFLEX STAT 04/14/2025 7:18 PM CDT COMPREHENSIVE METABOLIC PANEL STAT 04/14/2025 7:18 PM CDT CBC WITH AUTO DIFFERENTIAL STAT 04/14/2025 7:18 PM CDT BLOOD CULTURE STAT 04/14/2025 7:18 PM CDT XR ANKLE LEFT 3 OR MORE VIEWS ED 04/14/2025 2:28 PM CDT XR ANKLE RIGHT 3 OR MORE VIEWS ED 04/14/2025 2:28 PM CDT URINALYSIS AND REFLEX TO MICROSCOPIC AND CULTURE Routine 04/14/2025 12:13 PM CDT Pre-op testing CROSSMATCH Routine 04/14/2025 11:35 AM CDT [facility] (HCC) EGFR Routine 04/14/2025 11:35 AM CDT [facility] (HCC) DIFFERENTIAL AUTO Routine 04/14/2025 11: 35 AM CDT [facility] (HCC) ANTIBODY SCREEN Routine 04/14/2025 11:35 AM CDT [facility] (HCC) ABO/RH Routine 04/14/2025 11:35 AM CDT [facility] (HCC) COMPREHENSIVE METABOLIC PANEL Routine 04/14/2025 11:35 AM CDT [facility] (HCC) CBC WITH AUTO DIFFERENTIAL Routine 04/14/2025 11:35 AM CDT [facility] (HCC) TYPE AND SCREEN 14 DAY Routine 04/14/2025 11:35 AM CDT [facility] (HCC) PROTIME-INR Routine 04/14/2025 11:35 AM CDT [facility] (HCC) APTT Routine 04/14/2025 11:35 AM CDT [facility] (HCC) PET/CT FDG SKULL TO THIGH Schedule Routine, Read Routine (OP Routine) 04/14/2025 10:24 AM CDT Malignant neoplasm of lower-outer quadrant of right female breast, unspecified estrogen receptor status (HCC) Estrogen receptor positive status (ER+) POCT GLUCOSE DEVICE Routine 04/14/2025 8 :43 AM CDT OCCULT BLOOD, FECAL (FIT) Routine 08/26/2013 6:00 AM [employer]OE ASSOC[employer]ATE FLEXIBLE SIGMOIDOSCOPY REPORT 07/17/2012 from Last 3 Months or Most Recently Relevant to Health Maintenance Results * (ABNORMAL) Blood smear review (04/21/2025 6:34 AM CDT) RBC morphology Present(A) Anisocytosis Slight(A) KATHIE FOY Macrocytes 3-7/HPF(A) KATHIE Platelet estimate Automated Count Confirmed KATHIE FOY Blood 04/21/2025 6:34 AM CDT 04/21/2025 6:38 AM CDT us Justin Pantoja MD LAB BLOOD ORDERABLES Fin al Result KATHIE [address] [facility] Department [place] [address] * eGFR (04/21/2025 6:34 AM CDT) Pathologist [facility] eGFR >90 >=60 mL/min/1. 73 m2 Comment: Interpretive Data Reference Interval Normal >/= 90 mL/min/1.73m2 Mildly decreased* 60 - 89 mL/min/1.73m2 Mildly to moderately decreased 45 - 59 mL/min/1.73m2 Moderately to severely decreased 30 - 44 mL/min/1.73m2 Severely decreased 15 - 29 mL/min/1.73m2 Kidney Failure < 15 mL/min/1.73m2 *Relative to young adult level Estimated glomerular filtration rate is determined by the 2020 CKD-EPI equation recommended by the National Kidney Foundation (A Unifying Approach to GFR Estimation: Recommendations of the NKF-ASK Task Force on Reassessing the Inclusion of Race in Diagnosing Kidney Disease, JASN 2020). The CKD-EPI equation should not be used for patients with unstable renal function and has not been validated in children and those over 70. Current interpretive data was last reviewed 2021. Blood 04/21/2025 6:34 AM CDT 04/21/2025 6:38 AM CDT us Justin Pantoja MD LAB BLOOD ORDERABLES Fin al Result [place] [address] [facility] Department [place] [address] * (ABNORMAL) Differential, auto (04/21/2025 6:34 AM CDT) Pathologist [facility] Neutrophil abs 3.65 1.50 - 6.50 K/cumm Imm gran abs 0.01 0.00 - 0.10 K/cumm [facility] Lymphocyte abs 0.39(L) 0.80 - 3.30 K/cumm [facility] Monocyte abs 0.24 0.20 - 0.80 K/cumm [facility] Eosinophil abs 0.00 0.00 - 0.50 K/cumm [facility] Basophil abs 0.01 0.00 - 0.10 K/cumm [facility] Neutrophil pct 84.9 % [facility] Comment: Interpretive Data Percent cell count reference ranges are not reported, since discordance with absolute values may lead to misinterpretation of CBC data. Current Interpretive Data was last revised on 2017. Imm gran pct 0.2 % [facility] Comment: Interpretive Data Percent cell count reference ranges are not reported, since discordance with absolute values may lead to misinterpretation of CBC data. Current Interpretive Data was last revised on 2017. Lymphocyte pct 9.1 % [facility] Comment: Interpretive Data Percent cell count reference ranges are not reported, since discordance with absolute values may lead to misinterpretation of CBC data. Current Interpretive Data was last revised on 2017. Monocyte pct 5.6 % [facility] Comment: Interpretive Data Percent cell count reference ranges are not reported, since discordance with absolute values may lead to misinterpretation of CBC data. Current Interpretive Data was last revised on 2017. Eosinophil pct 0.0 % [facility] Comment: Interpretive Data Percent cell count reference ranges are not reported, since discordance with absolute values may lead to misinterpretation of CBC data. Current Interpretive Data was last revised on 2017. Basophil pct 0.2 % [facility] Comment: Interpretive Data Percent cell count reference ranges are not reported, since discordance with absolute values may lead to misinterpretation of CBC data. Current Interpretive Data was last revised on 2017. Blood 04/21/2025 6:34 AM CDT 04/21/2025 6:38 AM CDT us Justin Pantoja MD LAB BLOOD ORDERABLES Fin al Result [facility] [address] [facility] Department [place] [address] * (ABNORMAL) CBC with auto differential (04/21/2025 6:34 AM CDT) WBC 4.30 3.80 - 9.90 K/cumm Hgb 8.4(L) 11.9 - 15.5 g/dL [facility] Hct 27.1(L) 35.6 - 45.5 % [facility] Plt 123(L) 150 - 400 K/cumm [facility] MPV 12.2 9.1 - 12.3 fL [facility] RBC 2.37(L) 3.90 - 5.20 M/cumm [facility] MCV 114.3(H) 81.3 - 96.4 fL [facility] MCH 35.4(H) 27.1 - 33.3 pg [facility] MCHC 31.0(L) 32.3 - 35.7 g/dL [facility] RDW CV 21.8(H) 11.1 - 14.9 % [facility] RDW SD 90.5(H) 35.7 - 48.1 fL [facility] NRBC abs 0.00 0.00 - 0.01 K/cumm [facility] Blood 04/21/2025 6:34 AM CDT 04/21/2025 6:38 AM CDT Justin Pantoja MD LAB BLOOD ORDERABLES Bandar alcides Result - Final [facility] [address] [facility] Department [place] [address] * (ABNORMAL) Basic metabolic panel (04/21/2025 6:34 AM CDT) Sodium 138 135 - 145 mmol/L Potassium, pl 4.6 3.3 - 4.9 mmol/L [facility] Comment:Hemolyzed; Potassium value may be falsely elevated by as much as 1.0 mmol/L. Suggest redraw and reanalysis. Chloride 111(H) 97 - 110 mmol/L [facility] CO2 24 22 - 32 mmol/L [facility] Anion gap 3 2 - 15 mmol/L [facility] BUN 11 6 - 25 mg/dL [facility] Creatinine 0.59(L) 0.60 - 1.10 mg/dL [facility] Glucose 137 70 - 199 mg/dL [facility] Comment: Interpretive Data Fasting glucose >/= 126 mg/dl is diagnostic for diabetes. Fasting is defined as no caloric intake for at least 8 hours. Fasting glucose between 100 mg/dl to 125 mg/dl is diagnostic of prediabetes. In a patient with classic symptoms of hyperglycemia or hyperglycemic crisis, a random glucose >/= 200 mg/dl is diagnostic for diabetes. In the absence of unequivocal hyperglycemia, results should be confirmed by repeat testing. The classification and Diagnosis of Diabetes Diabetes Care 2021; 46: S19-S40. Current interpretive data was last revised 2022. Calcium 9.1 8.5 - 10.3 mg/dL [facility] Blood 04/21/2025 6:34 AM CDT 04/21/2025 6:38 AM CDT Justin Pantoja MD LAB BLOOD ORDERABLES Fin al Result Performing Organization Address [facility]/ZIP Co de Phone Number [place] [place] [address] * eGFR (04/21/2025 5:04 AM CDT) eGFR >90 >=60 mL/min/1. 73 m2 Comment: Interpretive Data Reference Interval Normal >/= 90 mL/min/1.73m2 Mildly decreased* 60 - 89 mL/min/1.73m2 Mildly to moderately decreased 45 - 59 mL/min/1.73m2 Moderately to severely decreased 30 - 44 mL/min/1.73m2 Severely decreased 15 - 29 mL/min/1.73m2 Kidney Failure < 15 mL/min/1.73m2 *Relative to young adult level Estimated glomerular filtration rate is determined by the 2020 CKD-EPI equation recommended by the National Kidney Foundation (A Unifying Approach to GFR Estimation: Recommendations of the NKF-ASK Task Force on Reassessing the Inclusion of Race in Diagnosing Kidney Disease, JASN 2020). The CKD-EPI equation should not be used for patients with unstable renal function and has not been validated in children and those over 70. Current interpretive data was last reviewed 2021. Blood 04/21/2025 5:04 AM CDT 04/21/2025 5:28 AM CDT us Ludwig Anne MD LAB BLOOD ORDERABLES Final R esult Performing Organization Address City/[facility]/ZIP Co de Phone Number [address] [place] [address] * (ABNORMAL) Differential, auto (04/21/2025 5:04 AM CDT) Pathologist [facility] Neutrophil abs 3.06 1.50 - 6.50 K/cumm Imm gran abs 0.01 0.00 - 0.10 K/cumm [facility] Lymphocyte abs 0.35(L) 0.80 - 3.30 K/cumm [facility] Monocyte abs 0.18(L) 0.20 - 0.80 K/cumm [facility] Eosinophil abs 0.00 0.00 - 0.50 K/cumm [facility] Basophil abs 0.01 0.00 - 0.10 K/cumm [facility] Neutrophil pct 84.7 % [facility] Comment: Interpretive Data Percent cell count reference ranges are not reported, since discordance with absolute values may lead to misinterpretation of CBC data. Current Interpretive Data was last revised on 2017. Imm gran pct 0.3 % [facility] Comment: Interpretive Data Percent cell count reference ranges are not reported, since discordance with absolute values may lead to misinterpretation of CBC data. Current Interpretive Data was last revised on 2017. Lymphocyte pct 9.7 % [facility] Comment: Interpretive Data Percent cell count reference ranges are not reported, since discordance with absolute values may lead to misinterpretation of CBC data. Current Interpretive Data was last revised on 2017. Monocyte pct 5.0 % [facility] Comment: Interpretive Data Percent cell count reference ranges are not reported, since discordance with absolute values may lead to misinterpretation of CBC data. Current Interpretive Data was last revised on 2017. Eosinophil pct 0.0 % [facility] Comment: Interpretive Data Percent cell count reference ranges are not reported, since discordance with absolute values may lead to misinterpretation of CBC data. Current Interpretive Data was last revised on 2017. Basophil pct 0.3 % [facility] Comment: Interpretive Data Percent cell count reference ranges are not reported, since discordance with absolute values may lead to misinterpretation of CBC data. Current Interpretive Data was last revised on 2017. Blood 04/21/2025 5:04 AM CDT 04/21/2025 5:28 AM CDT Ludwig Anne MD LAB BLOOD ORDERABLES Final R esult Performing Organization Address City/[facility] Co de Phone Number KATHIE [address] [place] [address] * (ABNORMAL) CBC with auto differential (04/21/2025 5:04 AM CDT) [facility] WBC 3.61(L) 3.80 - 9.90 K/cumm Hgb 8.6(L) 11.9 - 15.5 g/dL [facility] Hct 27.5(L) 35.6 - 45.5 % [facility] Plt 146(L) 150 - 400 K/cumm [facility] MPV 11.1 9.1 - 12.3 fL [facility] RBC 2.46(L) 3.90 - 5.20 M/cumm [facility] MCV 111.8(H) 81.3 - 96.4 fL [facility] MCH 35.0(H) 27.1 - 33.3 pg [facility] MCHC 31.3(L) 32.3 - 35.7 g/dL [facility] RDW CV 21.5(H) 11.1 - 14.9 % [facility] RDW SD 87.5(H) 35.7 - 48.1 fL [facility] NRBC abs 0.00 0.00 - 0.01 K/cumm [facility] Blood 04/21/2025 5:04 AM CDT 04/21/2025 5:28 AM CDT Ludwig Anne MD LAB BLOOD ORDERABLES Final R esult Performing Organization Address City/[facility]/ZIP Co de Phone Number KATHIE [address] [place] [address] * (ABNORMAL) Basic metabolic panel (04/21/2025 5:04 AM CDT) [facility] Sodium 141 135 - 145 mmol/L Potassium, pl 3.8 3.3 - 4.9 mmol/L [facility] Chloride 112(H) 97 - 110 mmol/L [facility] CO2 26 22 - 32 mmol/L [facility] Anion gap 3 2 - 15 mmol/L [facility] BUN 10 6 - 25 mg/dL [facility] Creatinine 0.63 0.60 - 1.10 mg/dL [facility] Glucose 170 70 - 199 mg/dL [facility] Comment: Interpretive Data Fasting glucose >/= 126 mg/dl is diagnostic for diabetes. Fasting is defined as no caloric intake for at least 8 hours. Fasting glucose between 100 mg/dl to 125 mg/dl is diagnostic of prediabetes. In a patient with classic symptoms of hyperglycemia or hyperglycemic crisis, a random glucose >/= 200 mg/dl is diagnostic for diabetes. In the absence of unequivocal hyperglycemia, results should be confirmed by repeat testing. The classification and Diagnosis of Diabetes Diabetes Care 2021; 46: S19-S40. Current interpretive data was last revised 2022. Calcium 9.2 8.5 - 10.3 mg/dL [facility] Blood 04/21/2025 5:04 AM CDT 04/21/2025 5:28 AM CDT us Ludwig Anne MD LAB BLOOD ORDERABLES Final R esult Performing Organization Address City/[facility] Co de Phone Number [address] [place] [address] * ABO/Rh (04/20/2025 3:03 PM CDT) ABO/Rh A Positive Blood 04/20/2025 3:03 PM CDT 04/20/2025 3:07 PM CDT Narrative [facility] - 04/20/2025 3:50 PM CDT Has the patient had Daratumumab or Isatuximab in the past 6 months?->Unknown us José Luis Jiménez MD LAB BLOOD BANK TEST ORDERAB LES Final Result Performing Organization Address City/[facility]/ZIP Co de Phone Number [address] [place] [address] * Antibody screen (04/20/2025 3:03 PM CDT) Susan, indirect, Gel Interpretation Negative ABSC Blood 04/20/2025 3:03 PM CDT 04/20/2025 3:07 PM CDT Bubba FOY - 04/20/2025 3:50 PM CDT Has the patient had Daratumumab or Isatuximab in the past 6 months?->Unknown José Luis Jiménez MD LAB BLOOD BANK TEST ORDERAB LES Final Result KATHIE [address] [facility] Department [place] [address] * (ABNORMAL) Tissue aerobic and anaerobic culture and gram stain Tissue Leg, left (04/20/2025 1:56 PMCDT) Pathologist [facility] Direct Specimen Exam Stain: Rare polymorphonuclear leukocytes seen. Abundant Gram Positive Cocci Moderate Gram Negative Bacilli Comment:Testing performed by : [facility], [address] [place] [address]., [id number] Report Final Report: Moderate Mixed microorganisms. Includes the following: Abundant Staphylococcus aureus Methicillin resistant (MRSA) by penicillin binding protein 2a (PBP2a) testing. Moderate Alcaligenes faecalis Few Pseudomonas aeruginosa Few Pseudomonas aeruginosa #2 (.) KATHIE Comment:Testing performed by : [facility], [address] [place] [address]., [id number] Organism PSEUDOMONAS AERUGINOSA KATHIE Organism STAPHYLOCOCCUS AUREUS KATHIE Organism MIXED MICROORGANISMS. KATHIE Organism PSEUDOMONAS [facility]ERUGINOSA [facility] ALCALIGENES FAECALIS [facility] Tissue (Leg, left) 04/20/2025 1:56 PM CDT 04/20/2025 5:45 PM CDT Narrative KATHIE - 04/24/2025 11:37 AM CDT Left lower leg wound tissue for culture Testing performed by [facility] ([phone]) Specimens submitted from normally sterile body sites will have all bacterial morphotypes identified. Specimens that contain grossly mixed delmar and/or are from body sites that are not normally sterile will be examined for Staphylococcus aureus, Pseudomonas aeruginosa, beta-hemolytic strep, vancomycin-resistant Enterococcus, Bacteroides, Parabacteroides, Clostridium perfringens and fungus. If any of these are isolated, the organism will be reported. Current interpretive data was last revised on 2019. Organism Antibiotic Method Susceptibility Pseudomonas aeruginosa Aztreonam INTERPRETATION Susceptible Pseudomonas aeruginosa Ceftazidime INTERPRETATION Susceptible Pseudomonas aeruginosa Ciprofloxacin INTERPRETATION Susceptible Pseudomonas aeruginosa Cefepime INTERPRETATION Susceptible Pseudomonas aeruginosa Imipenem INTERPRETATION Susceptible Pseudomonas aeruginosa Meropenem INTERPRETATION Susceptible Pseudomonas aeruginosa Piperacillin/Tazobactam INTERPR ETATION Susceptible Pseudomonas aeruginosa Tobramycin INTERPRETATION Susceptible Staphylococcus aureus Daptomycin (JERI) (JERI) INTERPRET ATION Susceptible Staphylococcus aureus Ceftaroline (JERI) INTERPRETATIO N Susceptible Staphylococcus aureus Doxycycline (JERI) INTERPRETATIO N Susceptible Staphylococcus aureus Linezolid (JERI) INTERPRETATIO N Susceptible Staphylococcus aureus Trimethoprim with Sulfamethoxazole (JERI) INTERPRETATION Susceptible Staphylococcus aureus Clindamycin (JERI) INTERPRETATIO N Resistant Staphylococcus aureus Erythromycin (JERI) INTERPRETATIO N Resistant Staphylococcus aureus Vancomycin (JERI) INTERPRETATIO N Susceptible Staphylococcus aureus Oxacillin (JERI) INTERPRETATIO N Resistant Staphylococcus aureus Cefazolin (JERI) INTERPRETATIO N Resistant Staphylococcus aureus Ceftriaxone (JERI) INTERPRETATIO N Resistant Pseudomonas aeruginosa Aztreonam INTERPRETATION Susceptible Pseudomonas aeruginosa Ceftazidime INTERPRETATION Susceptible Pseudomonas aeruginosa Ciprofloxacin INTERPRETATION Susceptible Pseudomonas aeruginosa Cefepime INTERPRETATION Susceptible Pseudomonas aeruginosa Imipenem INTERPRETATION Susceptible Pseudomonas aeruginosa Meropenem INTERPRETATION Susceptible Pseudomonas aeruginosa Piperacillin/Tazobactam INTERPR ETATION Susceptible Pseudomonas aeruginosa Tobramycin INTERPRETATION Susceptible Alcaligenes faecalis Cefepime (JERI) (JERI) INTERPRETATI ON Resistant Alcaligenes faecalis Ciprofloxacin (JERI) (JERI) INTERPR ETATION Intermediate Alcaligenes faecalis Meropenem (JERI) (JERI) INTERPRETAT ION Susceptible Alcaligenes faecalis Tobramycin (JERI) (JERI) INTERPRETA TION Susceptible Alcaligenes faecalis Trimethoprim with Sulfamethoxazole (JERI) (JERI) INTERPRETATION Susceptible Alcaligenes faecalis Ceftazidime (JERI) (JERI) INTERPRET ATION Susceptible us José Luis Jiménez MD LAB MICROBIOLOGY - GENERAL ORDERABLES Final Result KATHIE [address] [facility] Department [place] [address] * MI AN ELECTIVE ENDOTRACHEAL AIRWAY, MI AN PROCEDURE PLACEHOLDER (04/20/2025 1:42 PM CDT) Narrative Dannie Freeman CRNA - 04/20/2025 1:42 PM CDT Dannie Freeman CRNA 04/20/2025 1:43 PM Airway Patient location: OR Urgency: elective Date/time: 04/20/2025 1:36 PM Indications for airway management: anesthesia Difficult airway: no Staff: Supervising provider: Vickie Nair MD Placed by: LOCKSTITCH SHOULDER JOINER: Dannie Freeman CRNA Emergent airway documentation: Risks and benefits discussed: yes Consent obtained: yes Consent given by: patient Airway prep: Preoxygenated: yes Patient position: sniffing Mask difficulty assessment: 1 - vent by mask Spontaneous ventilation during airway: absent Sedation level during airway: deep Final airway details: Final airway type: endotracheal airway Tube type: ETT ETT size: 7.0 mm Cuffed: yes Technique used for successful ETT placement: direct laryngoscopy Devices/Methods used in placement: intubating stylet Insertion site: oral Blade size: 3 Cormack-Lehane (direct): grade I - full view of glottis Cuff volume: 7 mL Cuff inflated with: air ETT to gums: 21 cm Placement verified by: auscultation and CO2 detection Airway secured with: silk tape Number of attempts: 1 Vickie Nair MD ANESTHESIA ORDERABLES Final Result * eGFR (04/20/2025 5:37 AM CDT) eGFR >90 >=60 mL/min/1. 73 m2 Comment: Interpretive Data Reference Interval Normal >/= 90 mL/min/1.73m2 Mildly decreased* 60 - 89 mL/min/1.73m2 Mildly to moderately decreased 45 - 59 mL/min/1.73m2 Moderately to severely decreased 30 - 44 mL/min/1.73m2 Severely decreased 15 - 29 mL/min/1.73m2 Kidney Failure < 15 mL/min/1.73m2 *Relative to young adult level Estimated glomerular filtration rate is determined by the 2020 CKD-EPI equation recommended by the National Kidney Foundation (A Unifying Approach to GFR Estimation: Recommendations of the NKF-ASK Task Force on Reassessing the Inclusion of Race in Diagnosing Kidney Disease, JASN 2020). The CKD-EPI equation should not be used for patients with unstable renal function and has not been validated in children and those over 70. Current interpretive data was last reviewed 2021. Blood 04/20/2025 5:37 AM CDT 04/20/2025 6:29 AM CDT Jonh Galvez MD LAB BLOOD ORDERABLE S Final Result [facility] [address] [facility] Department [place] [address] * (ABNORMAL) Differential, auto (04/20/2025 5:37 AM CDT) Neutrophil abs 1.42(L) 1.50 - 6.50 K/cumm Imm gran abs 0.01 0.00 - 0.10 K/cumm [facility] Lymphocyte abs 0.43(L) 0.80 - 3.30 K/cumm [facility] Monocyte abs 0.25 0.20 - 0.80 K/cumm [facility] Eosinophil abs 0.13 0.00 - 0.50 K/cumm [facility] Basophil abs 0.02 0.00 - 0.10 K/cumm [facility] Neutrophil pct 62.8 % [facility] Comment: Interpretive Data Percent cell count reference ranges are not reported, since discordance with absolute values may lead to misinterpretation of CBC data. Current Interpretive Data was last revised on 2017. Imm gran pct 0.4 % [facility] Comment: Interpretive Data Percent cell count reference ranges are not reported, since discordance with absolute values may lead to misinterpretation of CBC data. Current Interpretive Data was last revised on 2017. Lymphocyte pct 19.0 % [facility] Comment: Interpretive Data Percent cell count reference ranges are not reported, since discordance with absolute values may lead to misinterpretation of CBC data. Current Interpretive Data was last revised on 2017. Monocyte pct 11.1 % [facility] Comment: Interpretive Data Percent cell count reference ranges are not reported, since discordance with absolute values may lead to misinterpretation of CBC data. Current Interpretive Data was last revised on 2017. Eosinophil pct 5.8 % [facility] Comment: Interpretive Data Percent cell count reference ranges are not reported, since discordance with absolute values may lead to misinterpretation of CBC data. Current Interpretive Data was last revised on 2017. Basophil pct 0.9 % [facility] Comment: Interpretive Data Percent cell count reference ranges are not reported, since discordance with absolute values may lead to misinterpretation of CBC data. Current Interpretive Data was last revised on 2017. Blood 04/20/2025 5:37 AM CDT 04/20/2025 6:29 AM CDT us Justin Pantoja MD LAB BLOOD ORDERABLES Fin al Result [place] [id number] [facility] Department [place] [address] * (ABNORMAL) CBC with auto differential (04/20/2025 5:37 AM CDT) WBC 2.26(L) 3.80 - 9.90 K/cumm Hgb 7.9(L) 11.9 - 15.5 g/dL [facility] Hct 25.5(L) 35.6 - 45.5 % [facility] Plt 145(L) 150 - 400 K/cumm [facility] MPV 11.4 9.1 - 12.3 fL [facility] RBC 2.24(L) 3.90 - 5.20 M/cumm [facility] MCV 113.8(H) 81.3 - 96.4 fL [facility] MCH 35.3(H) 27.1 - 33.3 pg [facility] MCHC 31.0(L) 32.3 - 35.7 g/dL [facility] RDW CV 22.2(H) 11.1 - 14.9 % [facility] RDW SD 90.7(H) 35.7 - 48.1 fL [facility] NRBC abs 0.00 0.00 - 0.01 K/cumm [facility] Blood 04/20/2025 5:37 AM CDT 04/20/2025 6:29 AM CDT José Luis Jiménez MD LAB BLOOD ORDERABLES Final [facility] [address] [place] [address] * (ABNORMAL) Basic metabolic panel (04/20/2025 5:37 AM CDT) Pathologist [facility] Sodium 138 135 - 145 mmol/L Potassium, pl 3.9 3.3 - 4.9 mmol/L [facility] Chloride 108 97 - 110 mmol/L [facility] CO2 25 22 - 32 mmol/L [facility] Anion gap 5 2 - 15 mmol/L [facility] BUN 7 6 - 25 mg/dL [facility] Creatinine 0.57(L) 0.60 - 1.10 mg/dL [facility] Glucose 83 70 - 199 mg/dL [facility] Comment: Interpretive Data Fasting glucose >/= 126 mg/dl is diagnostic for diabetes. Fasting is defined as no caloric intake for at least 8 hours. Fasting glucose between 100 mg/dl to 125 mg/dl is diagnostic of prediabetes. In a patient with classic symptoms of hyperglycemia or hyperglycemic crisis, a random glucose >/= 200 mg/dl is diagnostic for diabetes. In the absence of unequivocal hyperglycemia, results should be confirmed by repeat testing. The classification and Diagnosis of Diabetes Diabetes Care 2021; 46: S19-S40. Current interpretive data was last revised 2022. Calcium 9.0 8.5 - 10.3 mg/dL [facility] Blood 04/20/2025 5:37 AM CDT 04/20/2025 6:29 AM CDT us José Luis Jiménez MD LAB BLOOD ORDERABLES Final Result [address] [place] [address] * Vancomycin level trough (04/19/2025 11:26 AM CDT) Vancomycin trough 12.6 10.0 - 20.0 mcg/mL Blood 04/19/2025 11:2 6 AM CDT 04/19/2025 11:38 AM CDT Justin Pantoja MD LAB BLOOD ORDERABLES Fin al Result Performing Organization Address [facility] Co de Phone Number KATHIE [address] [place] [place] [address] * eGFR (04/19/2025 4:24 AM CDT) Pathologist [facility] eGFR >90 >=60 mL/min/1. 73 m2 Comment: Interpretive Data Reference Interval Normal >/= 90 mL/min/1.73m2 Mildly decreased* 60 - 89 mL/min/1.73m2 Mildly to moderately decreased 45 - 59 mL/min/1.73m2 Moderately to severely decreased 30 - 44 mL/min/1.73m2 Severely decreased 15 - 29 mL/min/1.73m2 Kidney Failure < 15 mL/min/1.73m2 *Relative to young adult level Estimated glomerular filtration rate is determined by the 2020 CKD-EPI equation recommended by the National Kidney Foundation (A Unifying Approach to GFR Estimation: Recommendations of the NKF-ASK Task Force on Reassessing the Inclusion of Race in Diagnosing Kidney Disease, JASN 2020). The CKD-EPI equation should not be used for patients with unstable renal function and has not been validated in children and those over 70. Current interpretive data was last reviewed 2021. Blood 04/19/2025 4:24 AM CDT 04/19/2025 4:40 AM CDT us Ludwig Anne MD LAB BLOOD ORDERABLES Final R esult Performing Organization Address City/[facility]/ZIP Co de Phone Number [address] Department [place] [employer] [place] [address] * (ABNORMAL) Differential, auto (04/19/2025 4:24 AM CDT) [facility] Neutrophil abs 1.93 1.50 - 6.50 K/cumm Imm gran abs 0.01 0.00 - 0.10 K/cumm [facility] Lymphocyte abs 0.49(L) 0.80 - 3.30 K/cumm [facility] Monocyte abs 0.30 0.20 - 0.80 K/cumm [facility] Eosinophil abs 0.15 0.00 - 0.50 K/cumm [facility] Basophil abs 0.03 0.00 - 0.10 K/cumm [facility] Neutrophil pct 66.4 % [facility] Comment: Interpretive Data Percent cell count reference ranges are not reported, since discordance with absolute values may lead to misinterpretation of CBC data. Current Interpretive Data was last revised on 2017. Imm gran pct 0.3 % [facility] Comment: Interpretive Data Percent cell count reference ranges are not reported, since discordance with absolute values may lead to misinterpretation of CBC data. Current Interpretive Data was last revised on 2017. Lymphocyte pct 16.8 % [facility] Comment: Interpretive Data Percent cell count reference ranges are not reported, since discordance with absolute values may lead to misinterpretation of CBC data. Current Interpretive Data was last revised on 2017. Monocyte pct 10.3 % [facility] Comment: Interpretive Data Percent cell count reference ranges are not reported, since discordance with absolute values may lead to misinterpretation of CBC data. Current Interpretive Data was last revised on 2017. Eosinophil pct 5.2 % [facility] Comment: Interpretive Data Percent cell count reference ranges are not reported, since discordance with absolute values may lead to misinterpretation of CBC data. Current Interpretive Data was last revised on 2017. Basophil pct 1.0 % [facility] Comment: Interpretive Data Percent cell count reference ranges are not reported, since discordance with absolute values may lead to misinterpretation of CBC data. Current Interpretive Data was last revised on 2017. Blood 04/19/2025 4:24 AM CDT 04/19/2025 4:40 AM CDT us Justin Pantoja MD LAB BLOOD ORDERABLES Fin al [facility] [address] [facility] Department of Laboratories [place], [place] [id number] * (ABNORMAL) CBC with auto differential (04/19/2025 4:24 AM CDT) [facility] WBC 2.91(L) 3.80 - 9.90 K/cumm Hgb 7.7(L) 11.9 - 15.5 g/dL [facility] Hct 24.3(L) 35.6 - 45.5 % [facility] Plt 159 150 - 400 K/cumm [facility] MPV 10.9 9.1 - 12.3 fL [facility] RBC 2.15(L) 3.90 - 5.20 M/cumm [facility] MCV 113.0(H) 81.3 - 96.4 fL [facility] MCH 35.8(H) 27.1 - 33.3 pg [facility] MCHC 31.7(L) 32.3 - 35.7 g/dL [facility] RDW CV 22.0(H) 11.1 - 14.9 % [facility] RDW SD 88.8(H) 35.7 - 48.1 fL [facility] NRBC abs 0.00 0.00 - 0.01 K/cumm [facility] Blood 04/19/2025 4:24 AM CDT 04/19/2025 4:40 AM CDT José Luis Jiménez MD LAB BLOOD ORDERABLES Final Result [facility] [address] [facility] Department of Laboratories [place], [place] [id number] * (ABNORMAL) Comprehensive metabolic panel (04/19/2025 4:24 AM CDT) [facility] Sodium 138 135 - 145 mmol/L Potassium, pl 3.6 3.3 - 4.9 mmol/L [facility] Chloride 109 97 - 110 mmol/L [facility] CO2 23 22 - 32 mmol/L [facility] Anion gap 6 2 - 15 mmol/L [facility] BUN 6 6 - 25 mg/dL [facility] Creatinine 0.53(L) 0.60 - 1.10 mg/dL [facility] Glucose 80 70 - 199 mg/dL [facility] Comment: Interpretive Data Fasting glucose >/= 126 mg/dl is diagnostic for diabetes. Fasting is defined as no caloric intake for at least 8 hours. Fasting glucose between 100 mg/dl to 125 mg/dl is diagnostic of prediabetes. In a patient with classic symptoms of hyperglycemia or hyperglycemic crisis, a random glucose >/= 200 mg/dl is diagnostic for diabetes. In the absence of unequivocal hyperglycemia, results should be confirmed by repeat testing. The classification and Diagnosis of Diabetes Diabetes Care 2021; 46: S19-S40. Current interpretive data was last revised 2022. Calcium 9.0 8.5 - 10.3 mg/dL [facility] Bilirubin, total 0.9 0.1 - 1.2 mg/dL [facility] Protein, pl 6.1(L) 6.5 - 8.5 g/dL [facility] Albumin 2.5(L) 3.5 - 5.0 g/dL [facility] Alk phos 89 40 - 130 Units/L [facility] ALT 6(L) 7 - 45 Units/L [facility] AST 32 10 - 45 Units/L [facility] Blood 04/19/2025 4:24 AM CDT 04/19/2025 4:40 AM CDT us Ludwig Anne MD LAB BLOOD ORDERABLES Final R esult KATHIE [address] [facility] Department [place] [address] * eGFR (04/18/2025 5:33 AM CDT) eGFR >90 >=60 mL/min/1. 73 m2 Comment: Interpretive Data Reference Interval Normal >/= 90 mL/min/1.73m2 Mildly decreased* 60 - 89 mL/min/1.73m2 Mildly to moderately decreased 45 - 59 mL/min/1.73m2 Moderately to severely decreased 30 - 44 mL/min/1.73m2 Severely decreased 15 - 29 mL/min/1.73m2 Kidney Failure < 15 mL/min/1.73m2 *Relative to young adult level Estimated glomerular filtration rate is determined by the 2020 CKD-EPI equation recommended by the National Kidney Foundation (A Unifying Approach to GFR Estimation: Recommendations of the NKF-ASK Task Force on Reassessing the Inclusion of Race in Diagnosing Kidney Disease, JASN 2020). The CKD-EPI equation should not be used for patients with unstable renal function and has not been validated in children and those over 70. Current interpretive data was last reviewed 2021. Blood 04/18/2025 5:33 AM CDT 04/18/2025 6:37 AM CDT Jonh Galvez MD LAB BLOOD ORDERABLE S Final Result [facility] [address] [facility] Department [place] [address] * (ABNORMAL) Differential, auto (04/18/2025 5:33 AM CDT) Pathologist [facility] Neutrophil abs 2.65 1.50 - 6.50 K/cumm Imm gran abs 0.01 0.00 - 0.10 K/cumm [facility] Lymphocyte abs 0.48(L) 0.80 - 3.30 K/cumm [facility] Monocyte abs 0.32 0.20 - 0.80 K/cumm [facility] Eosinophil abs 0.17 0.00 - 0.50 K/cumm [facility] Basophil abs 0.04 0.00 - 0.10 K/cumm [facility] Neutrophil pct 72.2 % [facility] Comment: Interpretive Data Percent cell count reference ranges are not reported, since discordance with absolute values may lead to misinterpretation of CBC data. Current Interpretive Data was last revised on 2017. Imm gran pct 0.3 % [facility] Comment: Interpretive Data Percent cell count reference ranges are not reported, since discordance with absolute values may lead to misinterpretation of CBC data. Current Interpretive Data was last revised on 2017. Lymphocyte pct 13.1 % [facility] Comment: Interpretive Data Percent cell count reference ranges are not reported, since discordance with absolute values may lead to misinterpretation of CBC data. Current Interpretive Data was last revised on 2017. Monocyte pct 8.7 % [facility] Comment: Interpretive Data Percent cell count reference ranges are not reported, since discordance with absolute values may lead to misinterpretation of CBC data. Current Interpretive Data was last revised on 2017. Eosinophil pct 4.6 % [facility] Comment: Interpretive Data Percent cell count reference ranges are not reported, since discordance with absolute values may lead to misinterpretation of CBC data. Current Interpretive Data was last revised on 2017. Basophil pct 1.1 % [facility] Comment: Interpretive Data Percent cell count reference ranges are not reported, since discordance with absolute values may lead to misinterpretation of CBC data. Current Interpretive Data was last revised on 2017. Blood 04/18/2025 5:33 AM CDT 04/18/2025 6:37 AM CDT Justin Pantoja MD LAB BLOOD ORDERABLES Fin al Result [facility] [address] [facility] Department [place] [address] * (ABNORMAL) CBC with auto differential (04/18/2025 5:33 AM CDT) WBC 3.67(L) 3.80 - 9.90 K/cumm Hgb 7.8(L) 11.9 - 15.5 g/dL [facility] Hct 25.5(L) 35.6 - 45.5 % [facility] Plt 166 150 - 400 K/cumm [facility] MPV 11.1 9.1 - 12.3 fL [facility] RBC 2.25(L) 3.90 - 5.20 M/cumm [facility] MCV 113.3(H) 81.3 - 96.4 fL [facility] MCH 34.7(H) 27.1 - 33.3 pg [facility] MCHC 30.6(L) 32.3 - 35.7 g/dL [facility] RDW CV 22.3(H) 11.1 - 14.9 % [facility] RDW SD 91.0(H) 35.7 - 48.1 fL [facility] NRBC abs 0.00 0.00 - 0.01 K/cumm [facility] Blood 04/18/2025 5:33 AM CDT 04/18/2025 6:37 AM CDT José Luis Jiménez MD LAB BLOOD ORDERABLES Final Result KATHIE [address] [place] [address] * (ABNORMAL) Basic metabolic panel (04/18/2025 5:33 AM CDT) [facility] Sodium 139 135 - 145 mmol/L Potassium, pl 3.7 3.3 - 4.9 mmol/L [facility] Chloride 110 97 - 110 mmol/L [facility] CO2 24 22 - 32 mmol/L [facility] Anion gap 5 2 - 15 mmol/L [facility] BUN 6 6 - 25 mg/dL [facility] Creatinine 0.54(L) 0.60 - 1.10 mg/dL [facility] Glucose 84 70 - 199 mg/dL [facility] Comment: Interpretive Data Fasting glucose >/= 126 mg/dl is diagnostic for diabetes. Fasting is defined as no caloric intake for at least 8 hours. Fasting glucose between 100 mg/dl to 125 mg/dl is diagnostic of prediabetes. In a patient with classic symptoms of hyperglycemia or hyperglycemic crisis, a random glucose >/= 200 mg/dl is diagnostic for diabetes. In the absence of unequivocal hyperglycemia, results should be confirmed by repeat testing. The classification and Diagnosis of Diabetes Diabetes Care 202; 46: S19-S40. Current interpretive data was last revised 2022. Calcium 8.9 8.5 - 10.3 mg/dL [facility] Blood 04/18/2025 5:33 AM CDT 04/18/2025 6:37 AM CDT José Luis Jiménez MD LAB BLOOD ORDERABLES Final Result KATHIE [address] [place] [address] * Vancomycin level trough (04/17/2025 11:01 AM CDT) Pathologist [facility] Vancomycin trough 13.0 10.0 - 20.0 mcg/mL Blood 04/17/2025 11:0 1 AM CDT 04/17/2025 11:05 AM CDT Jonh Galvez MD LAB BLOOD ORDERABLE S Final Result Performing Organization Address [facility] Co de Phone Number KATHIE [address] [place] [place] [address] * eGFR (04/17/2025 5:25 AM CDT) eGFR >90 >=60 mL/min/1. 73 m2 Comment: Interpretive Data Reference Interval Normal >/= 90 mL/min/1.73m2 Mildly decreased* 60 - 89 mL/min/1.73m2 Mildly to moderately decreased 45 - 59 mL/min/1.73m2 Moderately to severely decreased 30 - 44 mL/min/1.73m2 Severely decreased 15 - 29 mL/min/1.73m2 Kidney Failure < 15 mL/min/1.73m2 *Relative to young adult level Estimated glomerular filtration rate is determined by the 2020 CKD-EPI equation recommended by the National Kidney Foundation (A Unifying Approach to GFR Estimation: Recommendations of the NKF-ASK Task Force on Reassessing the Inclusion of Race in Diagnosing Kidney Disease, JASN 2020). The CKD-EPI equation should not be used for patients with unstable renal function and has not been validated in children and those over 70. Current interpretive data was last reviewed 2021. Blood 04/17/2025 5:25 AM CDT 04/17/2025 5:52 AM CDT Jonh Galvez MD LAB BLOOD ORDERABLE S Final Result Performing Organization Address City/[facility] Co de Phone Number KATHIE [address] [place] [address] * Methylmalonic acid, serum (04/17/2025 5:25 AM CDT) MMA 0.15 <=0.40 nmol/mL [facility] Comment: ADDITIONAL INFORMATION This test was developed and its performance characteristics determined by [facility] in a manner consistent with CLIA requirements. This test has not been cleared or approved by the U.S. Food and Drug Administration. Test Performed by: [facility] [place] [address] Ophthalmic Assistant: Janie Betancourt Ph.D.; CLIA# [id number] Blood 04/17/2025 5:25 AM CDT 04/17/2025 5:52 AM CDT Narrative [facility] - 04/20/2025 11:39 AM CDT sent to lab; 04/18/2025 16:21:09 CDT [id number] received in lab; 04/19/2025 14:10:58 CDT [id number] Justin Pantoja MD LAB BLOOD ORDERABLES Fin al Result Performing Organization Address City/[facility]/ZIP Co de Phone Number [address] [place] [address] [facility] * Reticulocyte Count (04/17/2025 5:25 AM CDT) [facility] Retics, absolute 62 20 - 87 K/cumm Retics 2.8 0.4 - 2.9 % [facility] Reticulocyte Hgb 34.0 30.5 - 38.0 pg [facility] Blood 04/17/2025 5:25 AM CDT 04/17/2025 5:52 AM CDT Justin Pantoja MD LAB BLOOD ORDERABLES Fin al Result [address] [place] [address] * (ABNORMAL) Ferritin (04/17/2025 5:25 AM CDT) [facility] Ferritin 623(H) 13 - 150 ng/mL Blood 04/17/2025 5:25 AM CDT 04/17/2025 5:52 AM CDT Justin Pantoja MD LAB BLOOD ORDERABLES Fin al Result Performing Organization Address [facility] Co de Phone Number [address] [place] [address] * (ABNORMAL) Basic metabolic panel (04/17/2025 5:25 AM CDT) [facility] Sodium 140 135 - 145 mmol/L Potassium, pl 3.5 3.3 - 4.9 mmol/L [facility] Chloride 113(H) 97 - 110 mmol/L [facility] CO2 22 22 - 32 mmol/L [facility] Anion gap 5 2 - 15 mmol/L [facility] BUN 6 6 - 25 mg/dL [facility] Creatinine 0.57(L) 0.60 - 1.10 mg/dL [facility] Glucose 87 70 - 199 mg/dL [facility] Comment: Interpretive Data Fasting glucose >/= 126 mg/dl is diagnostic for diabetes. Fasting is defined as no caloric intake for at least 8 hours. Fasting glucose between 100 mg/dl to 125 mg/dl is diagnostic of prediabetes. In a patient with classic symptoms of hyperglycemia or hyperglycemic crisis, a random glucose >/= 200 mg/dl is diagnostic for diabetes. In the absence of unequivocal hyperglycemia, results should be confirmed by repeat testing. The classification and Diagnosis of Diabetes Diabetes Care 2021; 46: S19-S40. Current interpretive data was last revised 2022. Calcium 8.9 8.5 - 10.3 mg/dL [facility] Blood 04/17/2025 5:25 AM CDT 04/17/2025 5:52 AM CDT José Luis Jiménez MD LAB BLOOD ORDERABLES Final Result Performing Organization Address City/[facility] Co de Phone Number [address] [place] [address] * (ABNORMAL) Hemoglobin and hematocrit (04/16/2025 11:35 PM CDT) Hgb 7.7(L) 11.9 - 15.5 g/dL Hct 24.2(L) 35.6 - 45.5 % [facility] Blood 04/16/2025 11:3 5 PM CDT 04/16/2025 11:47 PM CDT Jonh Galvez MD LAB BLOOD ORDERABLE S Final Result [address] [place] [address] * (ABNORMAL) Hemoglobin and hematocrit (04/16/2025 5:54 PM CDT) Hgb 8.8(L) 11.9 - 15.5 g/dL Hct 28.1(L) 35.6 - 45.5 % [facility] Blood 04/16/2025 5:54 PM CDT 04/16/2025 6:06 PM CDT Jonh Galvez MD LAB BLOOD ORDERABLE S Final Result Performing Organization Address City/[facility] Co de Phone Number [address] [place] [address] * (ABNORMAL) Hemoglobin and hematocrit (04/16/2025 11:39 AM CDT) Hgb 7.6(L) 11.9 - 15.5 g/dL Hct 24.0(L) 35.6 - 45.5 % [facility] Blood 04/16/2025 11:3 9 AM CDT 04/16/2025 12:06 PM CDT Jonh Galvez MD LAB BLOOD ORDERABLE S Final Result [address] [place] [address] * (ABNORMAL) POC Blood Gas and Chemistries, Venous - (04/16/2025 8:24 AM CDT) pH,shama POC 7.37 7.32 - 7.43 pCO2, shama POC 38(L) 40 - 50 mmHg [facility] pO2,shama POC 48 mmHg [facility] Comment: Interpretive Data No reference range established. Current interpretive data was last revised 2020. HCO3, shama (Calc) POC 22 20 - 30 mmol/L [facility] Base excess, shama POC -3 mmol/L [facility] Comment: Interpretive Data No reference range established. Current interpretive data was last revised 2020. Oxy Hgb, shama POC 81.3(L) 90.0 - 95.0 % [facility] Met Hgb, shama POC 1.1 0.0 - 1.9 % [facility] Carboxy Hgb, shama POC 3.5(H) 0.0 - 2.9 % [facility] Hemoglobin, shama POC 8.2(L) 11.9 - 15.5 g/dL [facility] Lactate, shama POC 0.7 0.7 - 2.0 mmol/L [facility] Blood 04/16/2025 8:24 AM CDT 04/16/2025 8:24 AM CDT us Justin Pantoja MD LAB POCT ORDERABLES - DE VICE Final Result [facility] [address] [facility] [place] [address] * (ABNORMAL) Hemoglobin and hematocrit (04/16/2025 5:44 AM CDT) Hgb 7.7(L) 11.9 - 15.5 g/dL Hct 25.0(L) 35.6 - 45.5 % [facility] Blood 04/16/2025 5:44 AM CDT 04/16/2025 6:00 AM CDT us Jonh Galvez MD LAB BLOOD ORDERABLE S Final Result Performing Organization Address [facility] Co de Phone Number KATHIE [address] [address] * eGFR (04/16/2025 4:13 AM CDT) eGFR >90 >=60 mL/min/1. 73 m2 Comment: Interpretive Data Reference Interval Normal >/= 90 mL/min/1.73m2 Mildly decreased* 60 - 89 mL/min/1.73m2 Mildly to moderately decreased 45 - 59 mL/min/1.73m2 Moderately to severely decreased 30 - 44 mL/min/1.73m2 Severely decreased 15 - 29 mL/min/1.73m2 Kidney Failure < 15 mL/min/1.73m2 *Relative to young adult level Estimated glomerular filtration rate is determined by the 2020 CKD-EPI equation recommended by the National Kidney Foundation (A Unifying Approach to GFR Estimation: Recommendations of the NKF-ASK Task Force on Reassessing the Inclusion of Race in Diagnosing Kidney Disease, JASN 2020). The CKD-EPI equation should not be used for patients with unstable renal function and has not been validated in children and those over 70. Current interpretive data was last reviewed 2021. Blood 04/16/2025 4:13 AM CDT 04/16/2025 4:19 AM CDT Jonh Galvez MD LAB BLOOD ORDERABLE S Final Result Performing Organization Address [facility] Co de Phone Number [address] [place] [address] * (ABNORMAL) Hemoglobin and hematocrit (04/16/2025 4:13 AM CDT) Hgb 7.9(L) 11.9 - 15.5 g/dL Hct 25.2(L) 35.6 - 45.5 % [facility] Blood 04/16/2025 4:13 AM CDT 04/16/2025 4:19 AM CDT Jonh Galvez MD LAB BLOOD ORDERABLE S Final Result [address] [place] [address] * (ABNORMAL) Basic metabolic panel (04/16/2025 4:13 AM CDT) [facility] Sodium 139 135 - 145 mmol/L Potassium, pl 3.5 3.3 - 4.9 mmol/L [facility] Chloride 112(H) 97 - 110 mmol/L [facility] CO2 22 22 - 32 mmol/L [facility] Anion gap 5 2 - 15 mmol/L [facility] BUN 6 6 - 25 mg/dL [facility] Creatinine 0.65 0.60 - 1.10 mg/dL [facility] Glucose 89 70 - 199 mg/dL [facility] Comment: Interpretive Data Fasting glucose >/= 126 mg/dl is diagnostic for diabetes. Fasting is defined as no caloric intake for at least 8 hours. Fasting glucose between 100 mg/dl to 125 mg/dl is diagnostic of prediabetes. In a patient with classic symptoms of hyperglycemia or hyperglycemic crisis, a random glucose >/= 200 mg/dl is diagnostic for diabetes. In the absence of unequivocal hyperglycemia, results should be confirmed by repeat testing. The classification and Diagnosis of Diabetes Diabetes Care 202; 46: S19-S40. Current interpretive data was last revised 2022. Calcium 8.9 8.5 - 10.3 mg/dL [facility] Blood 04/16/2025 4:13 AM CDT 04/16/2025 4:19 AM CDT José Luis Jiménez MD LAB BLOOD ORDERABLES Final Result [address] [place] [address] * Transfuse RBC (04/16/2025 3:29 AM CDT) Blood Nayla Hartman NP BLOOD TRANSFUSION ORDERA BLES Final Result Performing Organization Address City/[facility] de Phone Number [address] [address] * (ABNORMAL) Hemoglobin and hematocrit (04/15/2025 11:40 PM CDT) [facility] Hgb 7.0(L) 11.9 - 15.5 g/dL Hct 22.5(L) 35.6 - 45.5 % [facility] Blood 04/15/2025 11:4 0 PM CDT 04/15/2025 11:43 PM CDT Jonh Galvez MD LAB BLOOD ORDERABLE S Final Result Performing Organization Address [facility] de Phone Number [address] [address] * Vancomycin level trough (04/15/2025 11:39 PM CDT) [facility] Vancomycin trough 12.7 10.0 - 20.0 mcg/mL Blood 04/15/2025 11:3 9 PM CDT 04/15/2025 11:43 PM CDT Jonh Galvez MD LAB BLOOD ORDERABLE S Final Result Performing Organization Address [facility] de Phone Number [address] [address] * Prepare RBC: 1 Units (04/15/2025 9:06 PM CDT) [facility] Units requested 1 Units requested Ready [facility] Unit Number [id number] Product code [id number] [facility] Blood Expiration Date [id number] [facility] Product Blood Type (for scanning) 6200 [facility] Product Blood Type APOS [facility] Dispense Status DISPENSED [facility] Blood 04/15/2025 9:06 PM CDT 04/15/2025 9:06 PM CDT Nayla Hartman NP BLOOD BANK PRODUCT ORDER MILLIE Final Result Performing Organization Address [facility] Co de Phone Number [address] [address] * (ABNORMAL) Hemoglobin and hematocrit (04/15/2025 7:04 PM CDT) Hgb 6.8(L) 11.9 - 15.5 g/dL Hct 21.6(L) 35.6 - 45.5 % [facility] Blood 04/15/2025 7:04 PM CDT 04/15/2025 7:06 PM CDT Jonh Galvez MD LAB BLOOD ORDERABLE S Final Result Performing Organization Address [facility] de Phone Number [address] [address] * (ABNORMAL) Iron profile w/ IBC (04/15/2025 12:05 PM CDT) Iron 76 35 - 145 mcg/dL TIBC 123(L) 250 - 400 mcg/dL [facility] Transferrin saturation 62(H) 20 - 50 % [facility] Blood 04/15/2025 12:0 5 PM CDT 04/15/2025 12:13 PM CDT Jonh Galvez MD LAB BLOOD ORDERABLE S Final Result Performing Organization Address [facility] Co de Phone Number [address] [address] * (ABNORMAL) Hemoglobin and hematocrit (04/15/2025 12:05 PM CDT) Hgb 6.8(L) 11.9 - 15.5 g/dL Hct 21.4(L) 35.6 - 45.5 % KATHIE Blood 04/15/2025 12:0 5 PM CDT 04/15/2025 12:13 PM CDT Jonh Galvez MD LAB BLOOD ORDERABLE S Final Result KATHIE FOY [address] [facility] [place] [address] * Blood culture Blood Peripheral (04/15/2025 12:05 PM CDT) Report Final Report: No growth Comment:Testing performed by : [facility], [address] [facility], [place]., [address] Blood (Peripheral) 04/15/2025 12:05 PM CDT 04/15/2025 4:28 PM CDT Narrative KATHIE - 04/20/2025 7:00 AM CDT If possible, draw before administering antibiotics. Collection->Peripheral 1. Blood cultures are incubated for 4 days on a continuously monitored blood culture system. The first report of a negative culture is issued within 24 hours of receipt of the specimen in the laboratory. 2. Positive culture results are reported as soon as they are detected. 3. The most important factor for detection of microbes in the setting of bloodstream infection is the volume of blood submitted for culture. Failure to collect an optimal blood volume can result in false negative blood cultures. 4. For pediatric patients, the recommended blood volume to collect follows a weight based strategy. See the electronic test catalog for collection instructions. 5. For positive blood cultures, a rapid molecular test may be performed for organism identification using the enrike ePlex blood culture identification panel for gram positive (BCID-GP) and gram negative (BCID-GN) organisms. This nucleic acid amplification test detects microbial DNA in positive blood culture broth. This assay has been cleared by the [place] Food and Drug Administration and its performance characteristics have been verified by the [facility]. For questions about this culture, contact the Microbiology Laboratory at [phone]. Interpretive data was last revised on 24. Jonh Galvez MD LAB MICROBIOLOGY - GENERAL ORDERABLES Final Result KATHIE [address] [facility] Department [place] [address] * Blood culture Blood Peripheral (04/15/2025 12:03 PM CDT) Report Final Report: No growth Comment:Testing performed by : [facility], [address] [place]., [address] Blood (Peripheral) 04/15/2025 12:03 PM CDT 04/15/2025 4:28 PM CDT Narrative KATHIE - 04/20/2025 7:00 AM CDT If possible, draw before administering antibiotics. 1. Blood cultures are incubated for 4 days on a continuously monitored blood culture system. The first report of a negative culture is issued within 24 hours of receipt of the specimen in the laboratory. 2. Positive culture results are reported as soon as they are detected. 3. The most important factor for detection of microbes in the setting of bloodstream infection is the volume of blood submitted for culture. Failure to collect an optimal blood volume can result in false negative blood cultures. 4. For pediatric patients, the recommended blood volume to collect follows a weight based strategy. See the electronic test catalog for collection instructions. 5. For positive blood cultures, a rapid molecular test may be performed for organism identification using the enrike ePlex blood culture identification panel for gram positive (BCID-GP) and gram negative (BCID-GN) organisms. This nucleic acid amplification test detects microbial DNA in positive blood culture broth. This assay has been cleared by the [place] Food and Drug Administration and its performance characteristics have been verified by the [facility]. For questions about this culture, contact the Microbiology Laboratory at [phone]. Interpretive data was last revised on 24. Jonh Galvez MD LAB MICROBIOLOGY - GENERAL ORDERABLES Final Result Performing Organization Address City/[facility]/ZIP Co de Phone Number KATHIE [address] [facility] Department [place] [address] * Transfuse RBC (04/15/2025 9:36 AM CDT) Blood Marisol Meza NP BLOOD TRANSFUSION ORDERABLES Final Result Performing Organization Address [facility] de Phone Number [address] [place] [address] * Prepare RBC: 1 Units (04/15/2025 3:03 AM CDT) [facility] Units requested 1 Units requested Ready [facility] Unit Number [id number] Product code [id number] [facility] Blood Expiration Date [id number] [facility] Product Blood Type (for scanning) 6200 [facility] Product Blood Type APOS [facility] Dispense Status DISPENSED [facility] Blood 04/15/2025 3:03 AM CDT 04/15/2025 3:03 AM CDT Marisol Meza NP BLOOD BANK PRODUCT ORDERABLE S Final Result Performing Organization Address [facility] de Phone Number [address] [place] [address] * Sepsis Lactate w/ Reflex (04/15/2025 2:23 AM CDT) [facility] Sepsis Lactate 0.8 0.7 - 2.0 mmol/L Blood 04/15/2025 2:23 AM CDT 04/15/2025 2:38 AM CDT Jonh Galvez MD LAB BLOOD ORDERABLE S Final Result Performing Organization Address [facility] Co de Phone Number [address] [place] [address] * eGFR (04/15/2025 2:23 AM CDT) [facility] eGFR >90 >=60 mL/min/1. 73 m2 Comment: Interpretive Data Reference Interval Normal >/= 90 mL/min/1.73m2 Mildly decreased* 60 - 89 mL/min/1.73m2 Mildly to moderately decreased 45 - 59 mL/min/1.73m2 Moderately to severely decreased 30 - 44 mL/min/1.73m2 Severely decreased 15 - 29 mL/min/1.73m2 Kidney Failure < 15 mL/min/1.73m2 *Relative to young adult level Estimated glomerular filtration rate is determined by the 2020 CKD-EPI equation recommended by the National Kidney Foundation (A Unifying Approach to GFR Estimation: Recommendations of the NKF-ASK Task Force on Reassessing the Inclusion of Race in Diagnosing Kidney Disease, JASN 2020). The CKD-EPI equation should not be used for patients with unstable renal function and has not been validated in children and those over 70. Current interpretive data was last reviewed 2021. Blood 04/15/2025 2:23 AM CDT 04/15/2025 2:39 AM CDT Jonh Galvez MD LAB BLOOD ORDERABLE S Final Result Performing Organization Address [facility] de Phone Number [address] [place] [address] * ABO / Rh Confirmation Testing (04/15/2025 2:23 AM CDT) [facility] ABO/Rh Confirmation A Positive [facility] Blood 04/15/2025 2:23 AM CDT 04/15/2025 2:39 AM CDT Jonh Galvez MD LAB BLOOD ORDERABLE S Final Result Performing Organization Address [facility] de Phone Number [address] [place] [address] B * (ABNORMAL) Comprehensive metabolic panel (04/15/2025 2:23 AM CDT) [facility] Sodium 139 135 - 145 mmol/L Potassium, pl 3.3 3.3 - 4.9 mmol/L [facility] Chloride 109 97 - 110 mmol/L [facility] CO2 23 22 - 32 mmol/L [facility] Anion gap 7 2 - 15 mmol/L [facility] BUN 6 6 - 25 mg/dL [facility] Creatinine 0.58(L) 0.60 - 1.10 mg/dL [facility] Glucose 84 70 - 199 mg/dL [facility] Comment: Interpretive Data Fasting glucose >/= 126 mg/dl is diagnostic for diabetes. Fasting is defined as no caloric intake for at least 8 hours. Fasting glucose between 100 mg/dl to 125 mg/dl is diagnostic of prediabetes. In a patient with classic symptoms of hyperglycemia or hyperglycemic crisis, a random glucose >/= 200 mg/dl is diagnostic for diabetes. In the absence of unequivocal hyperglycemia, results should be confirmed by repeat testing. The classification and Diagnosis of Diabetes Diabetes Care 2021; 46: S19-S40. Current interpretive data was last revised 2022. Calcium 9.0 8.5 - 10.3 mg/dL [facility] Bilirubin, total 0.8 0.1 - 1.2 mg/dL [facility] Protein, pl 6.1(L) 6.5 - 8.5 g/dL [facility] Albumin 2.6(L) 3.5 - 5.0 g/dL [facility] Alk phos 98 40 - 130 Units/L [facility] ALT 6(L) 7 - 45 Units/L [facility] AST 29 10 - 45 Units/L [facility] Blood 04/15/2025 2:23 AM CDT 04/15/2025 2:39 AM CDT Jonh Galvez MD LAB BLOOD ORDERABLE S Final Result [facility] [address] [facility] Department [place] [address] * (ABNORMAL) Aerobic and anaerobic culture and gram stain Wound Leg, right (04/14/2025 11:01 PM CDT) Direct Specimen Exam Stain: No polymorphonuclear leukocytes seen. Moderate Gram Negative Bacilli Few Gram Positive Cocci Comment:Testing performed by : [facility], [address] [facility], [place]., [address] Report Final Report: Moderate Alcaligenes faecalis Few Staphylococcus aureus Methicillin resistant (MRSA) by penicillin binding protein 2a (PBP2a) testing. Few Pseudomonas aeruginosa Few Mixed aerobic and anaerobic microorganisms (.) KATHIE Comment:Testing performed by : [facility], [address] [place]., [address] Organism ALCALIGENES FAECALIS [facility] Organism STAPHYLOCOCCUS AUREUS [facility] Organism MIXED AEROBIC AND ANAEROBIC MICROORGANISMS [facility] Organism PSEUDOMONAS AERUGINOSA [facility] Wound (Leg, right) 04/14/2025 11:01 PM CDT 04/15/2025 2:01 AM CDT Narrative [facility] - 04/23/2025 1:09 PM CDT Specimen received on an ESwab. Testing performed by [facility] ([phone]) Specimens submitted from normally sterile body sites will have all bacterial morphotypes identified. Specimens that contain grossly mixed delmar and/or are from body sites that are not normally sterile will be examined for Staphylococcus aureus, Pseudomonas aeruginosa, beta-hemolytic strep, vancomycin-resistant Enterococcus, Bacteroides, Parabacteroides, Clostridium perfringens and fungus. If any of these are isolated, the organism will be reported. Current interpretive data was last revised on 2019. Organism Antibiotic Method Susceptibility Alcaligenes faecalis Cefepime (JERI) (JERI) INTERPRETATI ON Susceptible Alcaligenes faecalis Ciprofloxacin (JERI) (JERI) INTERPR ETATION Susceptible Alcaligenes faecalis Meropenem (JERI) (JERI) INTERPRETAT ION Susceptible Alcaligenes faecalis Tobramycin (JERI) (JERI) INTERPRETA TION Susceptible Alcaligenes faecalis Trimethoprim with Sulfamethoxazole (JERI) (JERI) INTERPRETATION Susceptible Alcaligenes faecalis Ceftazidime (JERI) (JERI) INTERPRET ATION Susceptible Staphylococcus aureus Vancomycin INTERPRETATION Susceptible Staphylococcus aureus Ceftaroline INTERPRETATION Susceptible Staphylococcus aureus Trimethoprim with Sulfamethoxazole INTERPRETATION Susceptible Staphylococcus aureus Linezolid INTERPRETATION Susceptible Staphylococcus aureus Doxycycline INTERPRETATION Susceptible Staphylococcus aureus Clindamycin INTERPRETATION Resistant Staphylococcus aureus Erythromycin INTERPRETATION Resistant Staphylococcus aureus Oxacillin INTERPRETATION Resistant Staphylococcus aureus Cefazolin INTERPRETATION Resistant Staphylococcus aureus Ceftriaxone INTERPRETATION Resistant Pseudomonas aeruginosa Aztreonam INTERPRETATION Susceptible Pseudomonas aeruginosa Ceftazidime INTERPRETATION Susceptible Pseudomonas aeruginosa Ciprofloxacin INTERPRETATION Susceptible Pseudomonas aeruginosa Cefepime INTERPRETATION Susceptible Pseudomonas aeruginosa Imipenem INTERPRETATION Susceptible Pseudomonas aeruginosa Meropenem INTERPRETATION Susceptible Pseudomonas aeruginosa Piperacillin/Tazobactam INTERPR ETATION Susceptible Pseudomonas aeruginosa Tobramycin INTERPRETATION Susceptible Jonh Galvez MD LAB MICROBIOLOGY - GENERAL ORDERABLES Final Result Performing Organization Address [facility] Co de Phone Number KATHIE FOY [address] [facility] [place] [address] * (ABNORMAL) CBC without differential (04/14/2025 10:28 PM CDT) WBC 4.54 3.80 - 9.90 K/cumm Hgb 6.3(C) 11.9 - 15.5 g/dL [facility] Comment:Critical value ramos d within last 72 hrs Hct 20.3(L) 35.6 - 45.5 % [facility] Plt 164 150 - 400 K/cumm [facility] MPV 10.8 9.1 - 12.3 fL [facility] RBC 1.74(L) 3.90 - 5.20 M/cumm [facility] MCV 116.7(H) 81.3 - 96.4 fL [facility] MCH 36.2(H) 27.1 - 33.3 pg [facility] MCHC 31.0(L) 32.3 - 35.7 g/dL [facility] RDW CV 18.7(H) 11.1 - 14.9 % [facility] RDW SD 80.0(H) 35.7 - 48.1 fL [facility] NRBC abs 0.00 0.00 - 0.01 K/cumm [facility] Blood 04/14/2025 10:2 8 PM CDT 04/14/2025 11:04 PM CDT us Jonh Galvez MD LAB BLOOD ORDERABLE S Final Result Performing Organization Address City/[facility]/ZIP Co de Phone Number KATHIE FOY [address] [place] [address] [place] [address] * Blood culture Blood Peripheral (04/14/2025 7:28 PM CDT) Report Final Report: No growth Comment:Testing performed by : [facility], [address] [place] [address] Blood (Peripheral) 04/14/2025 7:28 PM CDT 04/14/2025 10:07 PM CDT Narrative KATHIE FOY - 04/19/2025 7:00 AM CDT From a different site than #1. Draw Blood cultures before administration of Antibiotics Collection->Peripheral 1. Blood cultures are incubated for 4 days on a continuously monitored blood culture system. The first report of a negative culture is issued within 24 hours of receipt of the specimen in the laboratory. 2. Positive culture results are reported as soon as they are detected. 3. The most important factor for detection of microbes in the setting of bloodstream infection is the volume of blood submitted for culture. Failure to collect an optimal blood volume can result in false negative blood cultures. 4. For pediatric patients, the recommended blood volume to collect follows a weight based strategy. See the electronic test catalog for collection instructions. 5. For positive blood cultures, a rapid molecular test may be performed for organism identification using the enrike ePlex blood culture identification panel for gram positive (BCID-GP) and gram negative (BCID-GN) organisms. This nucleic acid amplification test detects microbial DNA in positive blood culture broth. This assay has been cleared by the [place] Food and Drug Administration and its performance characteristics have been verified by the [facility]. For questions about this culture, contact the Microbiology Laboratory at [phone]. Interpretive data was last revised on 24. Jonh Galvez MD LAB MICROBIOLOGY - GENERAL ORDERABLES Final Result KATHIE [address] [facility] Department of Laboratories [place], [place] [id number] * Sepsis Lactate w/ Reflex (04/14/2025 7:18 PM CDT) [facility] Sepsis Lactate 1.4 0.7 - 2.0 mmol/L Blood 04/14/2025 7:18 PM CDT 04/14/2025 7:32 PM CDT Jonh Galvez MD LAB BLOOD ORDERABLE S Final Result Performing Organization Address [facility] Co de Phone Number KATHIE [address] [place] [address] * eGFR (04/14/2025 7:18 PM CDT) [facility] eGFR >90 >=60 mL/min/1. 73 m2 Comment: Interpretive Data Reference Interval Normal >/= 90 mL/min/1.73m2 Mildly decreased* 60 - 89 mL/min/1.73m2 Mildly to moderately decreased 45 - 59 mL/min/1.73m2 Moderately to severely decreased 30 - 44 mL/min/1.73m2 Severely decreased 15 - 29 mL/min/1.73m2 Kidney Failure < 15 mL/min/1.73m2 *Relative to young adult level Estimated glomerular filtration rate is determined by the 2020 CKD-EPI equation recommended by the National Kidney Foundation (A Unifying Approach to GFR Estimation: Recommendations of the NKF-ASK Task Force on Reassessing the Inclusion of Race in Diagnosing Kidney Disease, JASN 2020). The CKD-EPI equation should not be used for patients with unstable renal function and has not been validated in children and those over 70. Current interpretive data was last reviewed 2021. Blood 04/14/2025 7:18 PM CDT 04/14/2025 7:32 PM CDT us Disha JIMENEZ LAB BLOOD ORDERABLES Final Resu lt Performing Organization Address City/[facility]/ZIP Co de Phone Number KATHIE [address] [place] [address] * (ABNORMAL) Differential, auto (04/14/2025 7:18 PM CDT) [facility] Neutrophil abs 4.35 1.50 - 6.50 K/cumm Imm gran abs 0.02 0.00 - 0.10 K/cumm [facility] Lymphocyte abs 0.43(L) 0.80 - 3.30 K/cumm [facility] Monocyte abs 0.47 0.20 - 0.80 K/cumm [facility] Eosinophil abs 0.12 0.00 - 0.50 K/cumm [facility] Basophil abs 0.02 0.00 - 0.10 K/cumm [facility] Neutrophil pct 80.4 % [facility] Comment: Interpretive Data Percent cell count reference ranges are not reported, since discordance with absolute values may lead to misinterpretation of CBC data. Current Interpretive Data was last revised on 2017. Imm gran pct 0.4 % [facility] Comment: Interpretive Data Percent cell count reference ranges are not reported, since discordance with absolute values may lead to misinterpretation of CBC data. Current Interpretive Data was last revised on 2017. Lymphocyte pct 7.9 % [facility] Comment: Interpretive Data Percent cell count reference ranges are not reported, since discordance with absolute values may lead to misinterpretation of CBC data. Current Interpretive Data was last revised on 2017. Monocyte pct 8.7 % [facility] Comment: Interpretive Data Percent cell count reference ranges are not reported, since discordance with absolute values may lead to misinterpretation of CBC data. Current Interpretive Data was last revised on 2017. Eosinophil pct 2.2 % [facility] Comment: Interpretive Data Percent cell count reference ranges are not reported, since discordance with absolute values may lead to misinterpretation of CBC data. Current Interpretive Data was last revised on 2017. Basophil pct 0.4 % [facility] Comment: Interpretive Data Percent cell count reference ranges are not reported, since discordance with absolute values may lead to misinterpretation of CBC data. Current Interpretive Data was last revised on 2017. Blood 04/14/2025 7:18 PM CDT 04/14/2025 7:32 PM CDT us Disha JIMENEZ LAB BLOOD ORDERABLES Final Resu lt KATHIE [address] [facility] Department [place] [address] * (ABNORMAL) CBC with auto differential (04/14/2025 7:18 PM CDT) WBC 5.41 3.80 - 9.90 K/cumm Hgb 6.0(C) 11.9 - 15.5 g/dL [facility] Comment:This result has been called to [id number](malt house kiln operator) by [id number] on 04/14/2025 19:39:08, and has been read back. Hct 19.5(L) 35.6 - 45.5 % [facility] Plt 167 150 - 400 K/cumm [facility] MPV 10.2 9.1 - 12.3 fL [facility] RBC 1.66(L) 3.90 - 5.20 M/cumm [facility] MCV 117.5(H) 81.3 - 96.4 fL [facility] MCH 36.1(H) 27.1 - 33.3 pg [facility] MCHC 30.8(L) 32.3 - 35.7 g/dL [facility] RDW CV 18.6(H) 11.1 - 14.9 % [facility] RDW SD 78.3(H) 35.7 - 48.1 fL [facility] NRBC abs 0.00 0.00 - 0.01 K/cumm [facility] Blood 04/14/2025 7:18 PM CDT 04/14/2025 7:32 PM CDT us Disha JIMENEZ LAB BLOOD ORDERABLES Final Resu lt KATHIE [address] [facility] Department [place] [address] * Blood culture Blood Peripheral (04/14/2025 7:18 PM CDT) Report Final Report: No growth Comment:Testing performed by : [facility], [address] [facility], [place]., [address] Blood (Peripheral) 04/14/2025 7:18 PM CDT 04/14/2025 10:07 PM CDT Narrative KATHIE - 04/19/2025 7:00 AM CDT Draw Blood cultures before administration of Antibiotics Collection->Peripheral 1. Blood cultures are incubated for 4 days on a continuously monitored blood culture system. The first report of a negative culture is issued within 24 hours of receipt of the specimen in the laboratory. 2. Positive culture results are reported as soon as they are detected. 3. The most important factor for detection of microbes in the setting of bloodstream infection is the volume of blood submitted for culture. Failure to collect an optimal blood volume can result in false negative blood cultures. 4. For pediatric patients, the recommended blood volume to collect follows a weight based strategy. See the electronic test catalog for collection instructions. 5. For positive blood cultures, a rapid molecular test may be performed for organism identification using the enrike ePlex blood culture identification panel for gram positive (BCID-GP) and gram negative (BCID-GN) organisms. This nucleic acid amplification test detects microbial DNA in positive blood culture broth. This assay has been cleared by the [place] Food and Drug Administration and its performance characteristics have been verified by the [facility]. For questions about this culture, contact the Microbiology Laboratory at [phone]. Interpretive data was last revised on 24. Jonh Galvez MD LAB MICROBIOLOGY - GENERAL ORDERABLES Final Result Performing Organization Address City/[facility]/ZIP Co de Phone Number KATHIE [address] [place] [address] * (ABNORMAL) Phosphorus (04/14/2025 7:18 PM CDT) Phosphorus, pl 1.9(L) 2.3 - 4.5 mg/dL Blood 04/14/2025 7:18 PM CDT 04/14/2025 7:32 PM CDT Jude Schroeder MD LAB BLOOD ORDERABLES Final Result [address] [employer] [place], [place] [id number] * Magnesium (04/14/2025 7:18 PM CDT) Magnesium 2.4 1.4 - 2.5 mg/dL Blood 04/14/2025 7:18 PM CDT 04/14/2025 7:32 PM CDT Jude Schroeder MD LAB BLOOD ORDERABLES Final Result KATHIE [address] [facility] Department [place] [address] * (ABNORMAL) Comprehensive metabolic panel (04/14/2025 7:18 PM CDT) Sodium 138 135 - 145 mmol/L Potassium, pl 3.3 3.3 - 4.9 mmol/L [facility] Chloride 107 97 - 110 mmol/L [facility] CO2 26 22 - 32 mmol/L [facility] Anion gap 5 2 - 15 mmol/L [facility] BUN 6 6 - 25 mg/dL [facility] Creatinine 0.64 0.60 - 1.10 mg/dL [facility] Glucose 116 70 - 199 mg/dL [facility] Comment: Interpretive Data Fasting glucose >/= 126 mg/dl is diagnostic for diabetes. Fasting is defined as no caloric intake for at least 8 hours. Fasting glucose between 100 mg/dl to 125 mg/dl is diagnostic of prediabetes. In a patient with classic symptoms of hyperglycemia or hyperglycemic crisis, a random glucose >/= 200 mg/dl is diagnostic for diabetes. In the absence of unequivocal hyperglycemia, results should be confirmed by repeat testing. The classification and Diagnosis of Diabetes Diabetes Care 2021; 46: S19-S40. Current interpretive data was last revised 2022. Calcium 8.6 8.5 - 10.3 mg/dL [facility] Bilirubin, total 1.0 0.1 - 1.2 mg/dL [facility] Protein, pl 6.2(L) 6.5 - 8.5 g/dL [facility] Albumin 2.6(L) 3.5 - 5.0 g/dL [facility] Alk phos 92 40 - 130 Units/L [facility] ALT 6(L) 7 - 45 Units/L [facility] AST 30 10 - 45 Units/L [facility] Blood 04/14/2025 7:18 PM CDT 04/14/2025 7:32 PM CDT Jonh Galvez MD LAB BLOOD ORDERABLE S Final Result KATHIE [address] [facility] Department [place] [address] * XR Ankle Right 3 or More Views (04/14/2025 2:28 PM CDT) Anatomical Region Laterality Modality Lower Extremities, Ankle Right Compute d Radiography 04/14/2025 2:49 PM CDT Narrative 04/14/2025 2:56 PM CDT EXAM DESCRIPTION: XR ANKLE LEFT 3 OR MORE VIEWS; XR ANKLE RIGHT 3 OR MORE VIEWS REASON FOR STUDY: wound Pt to triage with c/o fever and wounds on bilateral ankles. Pt states she was somewhere here in the hospital, unsure of where, sent home and then called to come back. Pt is poor historian. Pt reports currently on abx. Pt had labs done this morning at this facility at 1130.best attempts on left ankle. 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 Pt states she was somewhere here in the hospital, unsure of where, sent home and then called to come back. Pt is poor historian. Pt reports currently on abx. Pt had labs done this morning at this facility at 1130. TECHNIQUE: Three views left ankle. Three views right ankle. COMPARISON: Correlation with left tibia and fibula radiographs 01/30/2025. FINDINGS: Left ankle: No acute fracture or dislocation. There is nonaggressive periosteal reaction distal tibia and distal fibula. Plantar calcaneal spur. No erosion or aggressive osseous lesion. No joint effusion. No osteolysis. There is soft tissue irregularity posterior ankle and heel. Right ankle: No acute fracture or dislocation. There is soft tissue irregularity posterior aspect of the soft tissues of the ankle. No osteolysis. Midfoot arthritic change. Plantar calcaneal spur. Nonaggressive periosteal reaction distal tibia. On the frontal view the soft tissue irregularity is noted along the medial aspect of the ankle. No aggressive osseous lesion. IMPRESSION: 1. No acute osseous abnormality of the bilateral ankles. 2. Soft tissue irregularity posterior aspect of the ankles bilaterally. 3. No osteolysis. 4. Nonaggressive periosteal reaction distal tibia and fibula bilaterally. THIS IS AN ELECTRONICALLY VERIFIED FINAL REPORT 04/14/2025 2:56 PM - Electronically signed by Shayan Taylor M.D. T: Report ID: [id number] Reading Location: [place] [address] Procedure Note Shayan Taylor MD - 04/14/2025 EXAM DESCRIPTION: XR ANKLE LEFT 3 OR MORE VIEWS; XR ANKLE RIGHT 3 OR MORE VIEWS REASON FOR STUDY: wound Pt to triage with c/o fever and wounds on bilateral ankles. Pt states shewas somewhere here in the hospital, unsure of where, sent home and then calledto come back. Pt is poor historian. Pt reports currently on abx. Pt hadlabs done this morning at this facility at 1130.best attempts on left ankle. 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 Pt states shewas somewhere here in the hospital, unsure of where, sent home and then calledto come back. Pt is poor historian. Pt reports currently on abx. Pt hadlabs done this morning at this facility at 1130. TECHNIQUE: Three views left ankle. Three views right ankle. COMPARISON: Correlation with left tibia and fibula radiographs 01/30/2025. FINDINGS: Left ankle: No acute fracture or dislocation. There is nonaggressive periosteal reaction distal tibia and distal fibula. Plantar calcaneal spur. No erosion or aggressive osseous lesion. No jointeffusion. No osteolysis. There is soft tissue irregularity posterior ankle andheel. Right ankle: No acute fracture or dislocation. There is soft tissue irregularity posterior aspect of the soft tissues of the ankle. No osteolysis. Midfoot arthritic change. Plantar calcaneal spur.Nonaggressive periosteal reaction distal tibia. On the frontal view the soft tissue irregularity is noted along the medial aspect of the ankle. No aggressive osseous lesion. IMPRESSION: 1. No acute osseous abnormality of the bilateral ankles. 2. Soft tissue irregularity posterior aspect of the anklesbilaterally. 3. No osteolysis. 4. Nonaggressive periosteal reaction distal tibia and fibulabilaterally. THIS IS AN ELECTRONICALLY VERIFIED FINAL REPORT 04/14/2025 2:56 PM - Electronically signed by Shayan Taylor M.D. T: Report ID: [id number] Reading Location: [place] [address] Disha JIMENEZ IMG XR PROCEDURES Final Result * XR Ankle Left 3 or More Views (04/14/2025 2:28 PM CDT) Anatomical Region Laterality Modality Lower Extremities, Ankle Left Compute d Radiography 04/14/2025 2:49 PM CDT Narrative 04/14/2025 2:56 PM CDT EXAM DESCRIPTION: XR ANKLE LEFT 3 OR MORE VIEWS; XR ANKLE RIGHT 3 OR MORE VIEWS REASON FOR STUDY: wound Pt to triage with c/o fever and wounds on bilateral ankles. Pt states she was somewhere here in the hospital, unsure of where, sent home and then called to come back. Pt is poor historian. Pt reports currently on abx. Pt had labs done this morning at this facility at 1130.best attempts on left ankle. 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 Pt states she was somewhere here in the hospital, unsure of where, sent home and then called to come back. Pt is poor historian. Pt reports currently on abx. Pt had labs done this morning at this facility at 1130. TECHNIQUE: Three views left ankle. Three views right ankle. COMPARISON: Correlation with left tibia and fibula radiographs 01/30/2025. FINDINGS: Left ankle: No acute fracture or dislocation. There is nonaggressive periosteal reaction distal tibia and distal fibula. Plantar calcaneal spur. No erosion or aggressive osseous lesion. No joint effusion. No osteolysis. There is soft tissue irregularity posterior ankle and heel. Right ankle: No acute fracture or dislocation. There is soft tissue irregularity posterior aspect of the soft tissues of the ankle. No osteolysis. Midfoot arthritic change. Plantar calcaneal spur. Nonaggressive periosteal reaction distal tibia. On the frontal view the soft tissue irregularity is noted along the medial aspect of the ankle. No aggressive osseous lesion. IMPRESSION: 1. No acute osseous abnormality of the bilateral ankles. 2. Soft tissue irregularity posterior aspect of the ankles bilaterally. 3. No osteolysis. 4. Nonaggressive periosteal reaction distal tibia and fibula bilaterally. THIS IS AN ELECTRONICALLY VERIFIED FINAL REPORT 04/14/2025 2:56 PM - Electronically signed by Shayan Taylor M.D. T: Report ID: [id number] Reading Location: [id number] Procedure Note Shayan Taylor MD - 04/14/2025 EXAM DESCRIPTION: XR ANKLE LEFT 3 OR MORE VIEWS; XR ANKLE RIGHT 3 OR MORE VIEWS REASON FOR STUDY: wound Pt to triage with c/o fever and wounds on bilateral ankles. Pt states shewas somewhere here in the hospital, unsure of where, sent home and then calledto come back. Pt is poor historian. Pt reports currently on abx. Pt hadlabs done this morning at this facility at 1130.best attempts on left ankle. 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 Pt states shewas somewhere here in the hospital, unsure of where, sent home and then calledto come back. Pt is poor historian. Pt reports currently on abx. Pt hadlabs done this morning at this facility at 1130. TECHNIQUE: Three views left ankle. Three views right ankle. COMPARISON: Correlation with left tibia and fibula radiographs 01/30/2025. FINDINGS: Left ankle: No acute fracture or dislocation. There is nonaggressive periosteal reaction distal tibia and distal fibula. Plantar calcaneal spur. No erosion or aggressive osseous lesion. No jointeffusion. No osteolysis. There is soft tissue irregularity posterior ankle andheel. Right ankle: No acute fracture or dislocation. There is soft tissue irregularity posterior aspect of the soft tissues of the ankle. No osteolysis. Midfoot arthritic change. Plantar calcaneal spur.Nonaggressive periosteal reaction distal tibia. On the frontal view the soft tissue irregularity is noted along the medial aspect of the ankle. No aggressive osseous lesion. IMPRESSION: 1. No acute osseous abnormality of the bilateral ankles. 2. Soft tissue irregularity posterior aspect of the anklesbilaterally. 3. No osteolysis. 4. Nonaggressive periosteal reaction distal tibia and fibulabilaterally. THIS IS AN ELECTRONICALLY VERIFIED FINAL REPORT 04/14/2025 2:56 PM - Electronically signed by Shayan Taylor M.D. T: Report ID: [id number] Reading Location: [place] [address] Disha JIMENEZ IMG XR PROCEDURES Final Result * Urinalysis reflex to microscopic and culture Urine, clean voided (04/14/2025 12:13 PM CDT) Color, ur Yellow Yellow Clarity, ur Clear Clear KATHIE Specific gravity, ur 1.019 1.003 - 1.030 [facility] pH, urine 8.0 [facility] Comment: Interpretive Data U rine pH is affected by diet, medications, systemic acid-base disturbances, and renal tubular function. pH may affect urinary stone formation. For example, urine pH below 6.0 may help reduce the tendency for calcium phosphate stones and pH greater than 6.0 may reduce the tendency for uric acid stone formation. Source: [facility] Current Interpretive Data was last revised on 2017 Protein, ur ql Negative Negative [facility] Glucose, ur ql Negative Negative [facility] Ketones, ur Negative Negative [facility] Bilirubin, ur Negative Negative [facility] Blood, ur Negative Negative [facility] Urobilinogen, ur <2.0 <2.0 mg/dL [facility] Nitrite, ur Negative Negative [facility] Leukocyte esterase, ur Negative Negative [facility] UA reflex comment Reflex conditions for microscopic UA and culture not met. [facility], clean voided 04/14/2025 12:13 PM CDT 04/14/2025 12:21 PM CDT Candie Preciado NP LAB MICROBIOLOGY - G ENERAL ORDERABLES Final Result KATHIE [address] [facility] Department of Laboratories [place] [phone] * eGFR (04/14/2025 11:35 AM CDT) [facility] eGFR >90 >=60 mL/min/1. 73 m2 Comment: Interpretive Data Reference Interval Normal >/= 90 mL/min/1.73m2 Mildly decreased* 60 - 89 mL/min/1.73m2 Mildly to moderately decreased 45 - 59 mL/min/1.73m2 Moderately to severely decreased 30 - 44 mL/min/1.73m2 Severely decreased 15 - 29 mL/min/1.73m2 Kidney Failure < 15 mL/min/1.73m2 *Relative to young adult level Estimated glomerular filtration rate is determined by the 2020 CKD-EPI equation recommended by the National Kid[employer] (A Unifying Approach to GFR Estimation: Recommendations of the NKF-ASK Task Force on Reassessing the Inclusion of Race in Diagnosing Kidney Disease, JASN 2020). The CKD-EPI equation should not be used for patients with unstable renal function and has not been validated in children and those over 70. Current interpretive data was last reviewed 2021. Blood 04/14/2025 11:3 5 AM CDT 04/14/2025 11:37 AM CDT José Luis Jiménez MD LAB BLOOD ORDERABLES Final Result [facility] [address] [facility] Department [place] [address] * (ABNORMAL) Differential, auto (04/14/2025 11:35 AM CDT) [facility] Neutrophil abs 6.62(H) 1.50 - 6.50 K/cumm Imm gran abs 0.01 0.00 - 0.10 K/cumm [facility] Lymphocyte abs 0.36(L) 0.80 - 3.30 K/cumm [facility] Monocyte abs 0.59 0.20 - 0.80 K/cumm [facility] Eosinophil abs 0.08 0.00 - 0.50 K/cumm [facility] Basophil abs 0.04 0.00 - 0.10 K/cumm [facility] Neutrophil pct 86.0 % [facility] Comment: Interpretive Data Percent cell count reference ranges are not reported, since discordance with absolute values may lead to misinterpretation of CBC data. Current Interpretive Data was last revised on 2017. Imm gran pct 0.1 % [facility] Comment: Interpretive Data Percent cell count reference ranges are not reported, since discordance with absolute values may lead to misinterpretation of CBC data. Current Interpretive Data was last revised on 2017. Lymphocyte pct 4.7 % [facility] Comment: Interpretive Data Percent cell count reference ranges are not reported, since discordance with absolute values may lead to misinterpretation of CBC data. Current Interpretive Data was last revised on 2017. Monocyte pct 7.7 % [facility] Comment: Interpretive Data Percent cell count reference ranges are not reported, since discordance with absolute values may lead to misinterpretation of CBC data. Current Interpretive Data was last revised on 2017. Eosinophil pct 1.0 % [facility] Comment: Interpretive Data Percent cell count reference ranges are not reported, since discordance with absolute values may lead to misinterpretation of CBC data. Current Interpretive Data was last revised on 2017. Basophil pct 0.5 % [facility] Comment: Interpretive Data Percent cell count reference ranges are not reported, since discordance with absolute values may lead to misinterpretation of CBC data. Current Interpretive Data was last revised on 2017. Blood 04/14/2025 11:3 5 AM CDT 04/14/2025 11:37 AM CDT José Luis Jiménez MD LAB BLOOD ORDERABLES Final Result [facility] [address] [facility] Department [place] [address] * (ABNORMAL) CBC with auto differential (04/14/2025 11:35 AM CDT) WBC 7.70 3.80 - 9.90 K/cumm Hgb 7.2(L) 11.9 - 15.5 g/dL [facility] Hct 22.9(L) 35.6 - 45.5 % [facility] Plt 201 150 - 400 K/cumm [facility] MPV 10.5 9.1 - 12.3 fL [facility] RBC 1.98(L) 3.90 - 5.20 M/cumm [facility] MCV 115.7(H) 81.3 - 96.4 fL [facility] MCH 36.4(H) 27.1 - 33.3 pg [facility] MCHC 31.4(L) 32.3 - 35.7 g/dL [facility] RDW CV 18.7(H) 11.1 - 14.9 % [facility] RDW SD 78.1(H) 35.7 - 48.1 fL [facility] NRBC abs 0.00 0.00 - 0.01 K/cumm [facility] Blood 04/14/2025 11:3 5 AM CDT 04/14/2025 11:37 AM CDT José Luis Jiménez MD LAB BLOOD ORDERABLES Final Result Performing Organization Address [facility] de Phone Number [address] [address] * ABO/Rh (04/14/2025 11:35 AM CDT) [facility] ABO/Rh A Positive Blood 04/14/2025 11:3 5 AM CDT 04/14/2025 11:37 AM CDT Narrative [facility] - 04/14/2025 12:42 PM CDT Is this test being ordered in advance for a procedure?->Yes Expected date of procedure:->04/13/25 Has the patient been transfused in the past 3 months?->No Has the patient been in the past 3 months?->No José Luis Jiménez MD LAB BLOOD BANK TEST ORDERAB LES Final Result Performing Organization Address [facility] de Phone Number [address] [address] * (ABNORMAL) aPTT (04/14/2025 11:35 AM CDT) aPTT 46(H) 22 - 37 sec Comment: Interpretive data aPTT test has not been evaluated for monitoring heparin therapy. The anti-Xa is the preferred test. Current interpretive data was last revised on 2019. Blood 04/14/2025 11:3 5 AM CDT 04/14/2025 11:36 AM CDT José Luis Jiménez MD LAB BLOOD ORDERABLES Final Result Performing Organization Address [facility] de Phone Number [address] [place] [address] * (ABNORMAL) Protime-INR (04/14/2025 11:35 AM CDT) Pathologist [facility] PT 22.70(H) 12.00 - 14.60 sec INR 2.02(H) 0.90 - 1.20 KATHIE Comment: Interpretive data Oral anticoagulant therapeutic ranges: Venous thromboembolism prophylaxis or treatment: 2.0-3.0 CARDIOLOGY Standard range: 2.0-3.0 High-intensity range: 2.5-3.5 Refer to indication-specific guidelines for appropriate target ranges for prosthetic heart valve replacement. Current interpretive data was last revised on 2019. Blood 04/14/2025 11:3 5 AM CDT 04/14/2025 11:36 AM CDT José Luis Jiménez MD LAB BLOOD ORDERABLES Final Result Performing Organization Address [facility] de Phone Number [address] [place] [address] * Crossmatch (04/14/2025 11:35 AM CDT) Pathologist [facility] Crossmatch Compatible [facility] Unit number for crossmatch [id number] [facility] Crossmatch Compatible [facility] Unit number for crossmatch [id number] [facility] Blood 04/14/2025 11:3 5 AM CDT 04/14/2025 11:37 AM CDT José Luis Jiménez MD LAB BLOOD BANK TEST ORDERAB LES Edited Result - Final Performing Organization Address [facility] de Phone Number KATHIE [address] [address] * Antibody screen (04/14/2025 11:35 AM CDT) [facility] Susan, indirect, Gel Interpretation Negative ABSC Blood 04/14/2025 11:3 5 AM CDT 04/14/2025 11:37 AM CDT Narrative [facility] - 04/14/2025 12:42 PM CDT Is this test being ordered in advance for a procedure?->Yes Expected date of procedure:->04/13/25 Has the patient been transfused in the past 3 months?->No Has the patient been in the past 3 months?->No José Luis Jiménez MD LAB BLOOD BANK TEST ORDERAB LES Final Result Performing Organization Address [facility] de Phone Number KATHIE [address] [address] * (ABNORMAL) Comprehensive metabolic panel (04/14/2025 11:35 AM CDT) [facility] Sodium 138 135 - 145 mmol/L Potassium, pl 3.8 3.3 - 4.9 mmol/L [facility] Chloride 102 97 - 110 mmol/L [facility] CO2 28 22 - 32 mmol/L [facility] Anion gap 8 2 - 15 mmol/L [facility] BUN 8 6 - 25 mg/dL [facility] [facility] Creatinine 0.66 0.60 - 1.10 mg/dL [facility] Glucose 106 70 - 199 mg/dL [facility] Comment: Interpretive Data Fasting glucose >/= 126 mg/dl is diagnostic for diabetes. Fasting is defined as no caloric intake for at least 8 hours. Fasting glucose between 100 mg/dl to 125 mg/dl is diagnostic of prediabetes. In a patient with classic symptoms of hyperglycemia or hyperglycemic crisis, a random glucose >/= 200 mg/dl is diagnostic for diabetes. In the absence of unequivocal hyperglycemia, results should be confirmed by repeat testing. The classification and Diagnosis of Diabetes Diabetes Care 2021; 46: S19-S40. Current interpretive data was last revised 2022. Calcium 9.9 8.5 - 10.3 mg/dL [facility] Bilirubin, total 1.3(H) 0.1 - 1.2 mg/dL [facility] Protein, pl 7.4 6.5 - 8.5 g/dL [facility] Albumin 3.1(L) 3.5 - 5.0 g/dL [facility] Alk phos 111 40 - 130 Units/L [facility] ALT 8 7 - 45 Units/L [facility] AST 36 10 - 45 Units/L [facility] Blood 04/14/2025 11:3 5 AM CDT 04/14/2025 11:37 AM CDT José Luis Jiménez MD LAB BLOOD ORDERABLES Final Result Performing Organization Address City/State/[facility] Co de Phone Number KATHIE [address] [facility] Department [place] [address] * PET/CT FDG Skull to Thigh (04/14/2025 10:24 AM CDT) Anatomical Region Laterality Modality N/A Positron Emissio n Tomography (PET) 04/14/2025 10:4 0 AM CDT Narrative 04/14/2025 11:17 AM CDT EXAM DESCRIPTION: PET/CT FDG SKULL TO THIGH RADIOPHARMACEUTICAL: 8.6 mCi F-18 Fluorodeoxyglucose (FDG) via a right hand IV site REASON FOR STUDY: Right breast cancer. History of right mastectomy. TECHNIQUE: The patient's fasting blood glucose level, measured by glucometer before injection of FDG, was 97 mg/dL. After intravenous administration of FDG, noncontrast CT images were obtained for attenuation correction and for fusion with emission PET images to allow for anatomical localization of PET findings. Emission PET images were then obtained. The reported standardized uptake value maximum (SUVmax) values have been normalized to body weight (SUVbw). The area imaged spanned the region from the skull base to the proximal thighs . The time from injection of FDG to start of imaging was 63 minutes. COMPARISON: CT abdomen and pelvis 05/02/2023 FINDINGS: For reference, the maximum SUV of the ascending thoracic aorta is 1.4 . The maximum SUV of the liver is 1.9 . Head: Normal FDG uptake is seen in the included portion of the brain. Neck: Physiologic uptake is present in the paired lymphoid structures. No hypermetabolic lymphadenopathy. Chest: Hypermetabolic right supraclavicular lymphadenopathy is consistent with metastatic disease. A mechanical service representative right supraclavicular lymph node measuring 2.3 x 1.6 cm has an SUV of 6.3. Hypermetabolic subpectoral lymph nodes are noted on the right. Prior right mastectomy. There is a 1.9 cm mass within the right chest wall with an SUV of 4.3. Hypermetabolic right upper paratracheal lymph node measuring 2.8 x 2 cm with an SUV of 6.4. Hypermetabolic bilateral hilar, right lower paratracheal, and AP window lymph nodes. There is a lymph node adjacent to the distal esophagus with increased metabolic activity. Bandlike consolidation measuring 3.3 x 1.6 cm in the anteromedial right upper lobe has an SUV of 4.7. There are scattered other linear consolidations within the right lung with increased metabolic activity. Left suprahilar nodule measuring 2.8 x 2.5 cm with an SUV of 7.4. Mild cardiomegaly. No pericardial or pleural effusion. Left chest port tip terminates at the upper SVC. Abdomen and Pelvis: No focal hypermetabolic liver lesion. No calcified gallstones. The spleen is normal. The pancreas is not well seen. No associated hypermetabolism. No focal hypermetabolic adrenal lesion. Normal genitourinary activity. Ostomy within the right abdomen. Bilateral hypermetabolic inguinal lymphadenopathy. A mechanical service representative left inguinal lymph node measures 2.8 x 2.5 cm with an SUV of 4. There are nonenlarged hypermetabolic bilateral external iliac lymph nodes. Nonenlarged retroperitoneal lymph nodes show mild FDG uptake. Atherosclerotic calcification of the abdominal aorta without aneurysm. IVC filter in place. Bilateral common iliac vein stents noted. Bones: Diffuse uptake throughout the bone marrow may be reactive. There is focal uptake within the left L3 pedicle with an SUV 4.5. No definite corresponding CT abnormality. IMPRESSION: 1. Hypermetabolic right chest wall mass is most consistent with malignancy. 2. Hypermetabolic right supraclavicular, subpectoral, mediastinal, bilateral hilar, and bilateral inguinal lymphadenopathy is consistent with metastatic disease. 3. Hypermetabolic left suprahilar nodule is consistent with metastatic disease. A 2nd primary is considered less likely. 4. Bandlike consolidations within the right lung with increased metabolic activity are suspicious for metastatic disease. 5. Focal uptake within the left L3 pedicle without corresponding CT abnormality is suspicious for metastatic disease. Diffuse uptake throughout the bone marrow is likely reactive. 6. Nonenlarged retroperitoneal lymph nodes show mild FDG uptake and are suspicious for metastatic disease. THIS IS AN ELECTRONICALLY VERIFIED FINAL REPORT 04/14/2025 11:17 AM - Electronically signed by Shayan Rocha M.D. LB: VANDANA Report ID: [id number] Reading Location: [id number] Procedure Note Shayan Rocha MD - 04/14/2025 EXAM DESCRIPTION: PET/CT FDG SKULL TO THIGH RADIOPHARMACEUTICAL: 8.6 mCi F-18 Fluorodeoxyglucose (FDG) via a righthand IV site REASON FOR STUDY: Right breast cancer. History of right mastectomy. TECHNIQUE: The patient's fasting blood glucose level, measured byglucometer before injection of FDG, was 97 mg/dL. After intravenous administrationof FDG, noncontrast CT images were obtained for attenuation correction andfor fusion with emission PET images to allow for anatomical localization ofPET findings. Emission PET images were then obtained. The reportedstandardized uptake value maximum (SUVmax) values have been normalized to body weight (SUVbw). The area imaged spanned the region from the skull base to the proximal thighs . The time from injection of FDG to start of imaging was63 minutes. COMPARISON: CT abdomen and pelvis 05/02/2023 FINDINGS: For reference, the maximum SUV of the ascending thoracic aortais 1.4 . The maximum SUV of the liver is 1.9 . Head: Normal FDG uptake is seen in the included portion of the brain. Neck: Physiologic uptake is present in the paired lymphoid structures. No hypermetabolic lymphadenopathy. Chest: Hypermetabolic right supraclavicular lymphadenopathy is consistent with metastatic disease. A mechanical service representative right supraclavicular lymph node measuring 2.3 x 1.6 cm has an SUV of 6.3. Hypermetabolic subpectorallymph nodes are noted on the right. Prior right mastectomy. There is a 1.9 cmmass within the right chest wall with an SUV of 4.3. Hypermetabolic rightupper paratracheal lymph node measuring 2.8 x 2 cm with an SUV of 6.4. Hypermetabolic bilateral hilar, right lower paratracheal, and AP windowlymph nodes. There is a lymph node adjacent to the distal esophagus withincreased metabolic activity. Bandlike consolidation measuring 3.3 x 1.6 cm in the anteromedial rightupper lobe has an SUV of 4.7. There are scattered other linear consolidations within the right lung with increased metabolic activity. Left suprahilar nodule measuring 2.8 x 2.5 cm with an SUV of 7.4. Mild cardiomegaly. No pericardial or pleural effusion. Leftchest port tip terminates at the upper SVC. Abdomen and Pelvis: No focal hypermetabolic liver lesion. No calcified gallstones. The spleen is normal. The pancreas is not well seen. No associated hypermetabolism. No focal hypermetabolic adrenal lesion. Normal genitourinary activity. Ostomy within the right abdomen. Bilateral hypermetabolic inguinal lymphadenopathy. A mechanical service representative left inguinallymph node measures 2.8 x 2.5 cm with an SUV of 4. There are nonenlarged hypermetabolic bilateral external iliac lymph nodes. Nonenlarged retroperitoneal lymph nodes show mild FDG uptake. Atherosclerotic calcification of the abdominal aorta without aneurysm. IVC filter inplace. Bilateral common iliac vein stents noted. Bones: Diffuse uptake throughout the bone marrow may be reactive. There is focal uptake within the left L3 pedicle with an SUV 4.5. No definitecorresponding CT abnormality. IMPRESSION: 1. Hypermetabolic right chest wall mass is most consistent withmalignancy. 2. Hypermetabolic right supraclavicular, subpectoral, mediastinal,bilateral hilar, and bilateral inguinal lymphadenopathy is consistent withmetastatic disease. 3. Hypermetabolic left suprahilar nodule is consistent with metastatic disease. A 2nd primary is considered less likely. 4. Bandlike consolidations within the right lung with increasedmetabolic activity are suspicious for metastatic disease. 5. Focal uptake within the left L3 pedicle without corresponding CT abnormality is suspicious for metastatic disease. Diffuse uptakethroughout the bone marrow is likely reactive. 6. Nonenlarged retroperitoneal lymph nodes show mild FDG uptake and are suspicious for metastatic disease. THIS IS AN ELECTRONICALLY VERIFIED FINAL REPORT 04/14/2025 11:17 AM - Electronically signed by Shayan Rocha M.D. LB: LB Report ID: [id number] Reading Location: [id number] Sascha Donohue MD IMG PET PROCEDURES Final Resul t * POCT glucose (04/14/2025 8:43 AM CDT) [facility] Glucose, POC 97 70 - 199 mg/dL Comment:Testing performed by : [facility], [address] [place] [address]., [id number] Blood 04/14/2025 8:43 AM CDT 04/14/2025 8:43 AM CDT us Sascha Donohue MD LAB POCT ORDERABLES - DEVICE F inal Result Performing Organization Address City/[facility]/ZIP Co de Phone Number [facility] [address] [facility] Department of Laboratories [place] [phone] * Occult blood, fecal non neoplasm screening (08/26/2013 6:00 AM SHOE ASSOCIATE) [facility] Stool Occult Blood NEGATIVE NEGATIVE 08/26/2013 8:07 AM SHOE ASSOCIATE [facility] HISTORICAL RESULTS 08/26/2013 6:00 AM SHOE ASSOCIATE 08/26/2013 7:31 AM SHOE ASSOCIATE Narrative [facility] HISTORICAL RESULTS - 08/26/2013 8:07 AM SHOE ASSOCIATE Collected By 193 us Stephanie Singh MD LAB BODY FLUIDS AND STOOLS ORD ERABLES Final Result [facility] HISTORICAL RESULTS * FLEXIBLE SIGMOIDOSCOPY REPORT (07/17/2012) Anatomical Region Laterality Modality Other Narrative 07/17/2012 Ordered by an unspecified provider. us Historical Provider GI PROCEDURE ORDERABLES F inal Result from Last 3 Months or Most Recently Relevant to Health Maintenance Insurance [facility] [place] [address] [facility] MEDICARE ADVANTAGE [facility] [place] [address] Advance Directives For more information, please contact: [phone] Documents on File Type Date Recorded Patient Bosom Presser Expl anation ADVANCE DIRECTIVE 08/18/2012 12:00 AM DNR ADVANCE DIRECTIVE 10/23/2011 12:00 AM SONIYA R OF [employer] FINANCIAL/MEDICAL * Full Code (Latest Code Status on File) Date Activated Date Inactivated Comments 04/14/2025 7:45 PM 04/21/2025 5:00 PM * Full Code Date Activated Date Inactivated Comments 01/27/2025 3:21 PM 02/01/2025 6:18 PM * Full Code Date Activated Date Inactivated Comments 04/19/2023 11:04 AM 05/18/2023 5:10 PM Care Teams Economics Analyst Relationship Specialty Start Date End Date Susan Ayala DO [address] [place] [address] PCP - General Family Medicine 08/24/24
--- OUTSIDE RECORDS SUMMARY | 2025-05-10 10:33 | XMS_ITS | Encounter Summary ---
Author Organization [facility] Address [address] [place] [address] Care Team Providers Care Circus Train Supervisor Name Role Phone Nayely Singh MD Primary Care Provider Encounter Details Date Type Department Care Team (Late st Contact Info) Description 08/07/2008 Emergency [facility] Er, Authorized P NO ADDRESS ON FILE Sumit Camargo MD NO ADDRESS ON FILE Social History Tobacco Use Types Packs/Day Years Used Date Smoking Tobacco: Never Assessed Comments Unknown Sex and Gender Information Value Date Recorded Sex Assigned at Not on file Legal Sex Female 5:41 AM PURCHASING AND CLAIMS SUPERVISOR Gender Identity Not on file Sexual Orientation Not on file documented as of this encounter Plan of Treatment Upcoming Encounters Date Type Department Care Team (Late st Contact Info) Description 05/31/2025 2:30 PM PURCHASING AND CLAIMS SUPERVISOR Office Visit [facility] Oncology and Hematology - [place] [address] [facility] [address] [place] [address] Sascha Donohue MD [address] [facility] [address] [place] [address] documented as of this encounter Procedures Procedure Name Priority Date/Time Associated Diagnosis Comments XR FOOT 3+ VW LEFT Routine 08/07/2008 6: 50 PM PURCHASING AND CLAIMS SUPERVISOR CBC WITH DIFFERENTIAL Stat 08/07/2008 6:45 PM PURCHASING AND CLAIMS SUPERVISOR SEDIMENTATION RATE Stat 08/07/2008 6: 45 PM PURCHASING AND CLAIMS SUPERVISOR D-DIMER Stat 08/07/2008 6:45 PM PURCHASING AND CLAIMS SUPERVISOR C-REACTIVE PROTEIN Stat 08/07/2008 6: 45 PM PURCHASING AND CLAIMS SUPERVISOR CARBAMAZEPINE LEVEL Stat 08/07/2008 6 :45 PM PURCHASING AND CLAIMS SUPERVISOR COMPREHENSIVE METABOLIC PANEL Stat 08/07/2008 6:45 PM PURCHASING AND CLAIMS SUPERVISOR documented in this encounter Results * XR FOOT 3+ VW LEFT (08/07/2008 6:50 PM PURCHASING AND CLAIMS SUPERVISOR) Anatomical Region Laterality Modality Ankle / Foot Other 08/07/2008 6:50 PM PURCHASING AND CLAIMS SUPERVISOR Narrative 08/07/2008 7:09 PM PURCHASING AND CLAIMS SUPERVISOR [facility] [address] [place], [place] [address] Admit Date: 08/07/2008 RACQUEL THOMAS Sex: F Admit Prov: ER, AUTHORIZED P Date: 1960 [id number]: [address] [place] [address] IMAGING SERVICES Ordering Prov: N/A Accession Number: [id number] Interpretation Exam: Left foot, 3 views on 08/07/2008. History: Pain. The bones are normally developed and mineralized. There is a small plantar calcaneal spur. No evidence of acute or old bony trauma is seen. No lytic or blastic lesions are identified. No significant articular abnormalities are identified. The adjacent soft tissues are unremarkable. Conclusion: Unremarkable exam.. . Dictated by: MAYTE BENDER 08/07/2008 19:06 Electronically signed by: MAYTE BENDER 08/07/2008 19:07 Procedure Note Mayte Bender MD - 08/07/2008 [place] [address] [place], [place] [address] Admit Date: 08/07/2008 RACQUEL THOMAS Sex: F Admit Prov: ER, AUTHORIZED P Date: 1960 Primary Care Prov: CMRN: [id number] Room: ER-A N: [id number] IMAGING SERVICES Ordering Prov: N/A Interpretation Exam: [...] (ABNORMAL) CBC WITH DIFFERENTIAL (08/07/2008 6:45 PM PURCHASING AND CLAIMS SUPERVISOR) RBC 4.05 3.90 - 4.90 M/uL [facility] MCHC 34.6 31.5 - 35.5 % [facility] MCV 97.8 82.0 - 99.0 fL [facility] HEMOGLOBIN 13.7 11.8 - 14.8 g/dL [facility] RDW 12.8 11.5 - 14.5 % [facility] WBC 6.0 4.0 - 9.8 K/uL [facility] MCH 33.8(H) 27.2 - 32.6 pg [facility] HEMATOCRIT 39.6 35.5 - 44.0 % [facility] RDW-STDEV 44.9 37.1 - 48.7 fL [facility] NEUTROPHILS 58 45 - 70 % [facility] NEUTROPHIL ABSOLUTE 3.42 1.90 - 7.00 K/uL [facility] EOSINOPHILS 4 0 - 7 % [facility] EOSINOPHIL ABSOLUTE 0.22 0.00 - 0.70 K/uL [facility] LYMPHOCYTES 33 16 - 45 % [facility] LYMPHOCYTE ABSOLUTE 1.97 0.70 - 4.50 K/uL [facility] BASOPHILS 0 0 - 2 % [facility] BASOPHILS ABSOLUTE 0.01 0.00 - 0.20 K/uL [facility] MONOCYTES 6 3 - 13 % [facility] MONOCYTE ABSOLUTE 0.33 0.10 - 1.30 K/uL [facility] MPV 10.3 9.3 - 12.4 fL [facility] PLATELETS 163 140 - 350 K/uL [facility] Blood specimen (specimen) 08/07/2008 6:45 PM PURCHASING AND CLAIMS SUPERVISOR 08/07/2008 6:48 PM PURCHASING AND CLAIMS SUPERVISOR Sumit Camargo MD HEMATOLOGY ORDERABLES Edited Performing Organization Address [facility] Phone Number INTERFACE SYSTEM Refer to clinic/hospital department [facility] CLIA# [id number] [address] [place] [address] * SEDIMENTATION RATE (08/07/2008 6:45 PM PURCHASING AND CLAIMS SUPERVISOR) ESR (SEDIMENTATION RATE) 8 0 - 20 mm/hr [facility] Blood specimen (specimen) 08/07/2008 6:45 PM PURCHASING AND CLAIMS SUPERVISOR 08/07/2008 6:48 PM PURCHASING AND CLAIMS SUPERVISOR Sumit Camargo MD HEMATOLOGY ORDERABLES Final Re sult Performing Organization Address [facility] Phone Number INTERFACE SYSTEM Refer to clinic/hospital department [facility] CLIA# [id number] [address] [place] [address] * CARBAMAZEPINE LEVEL (08/07/2008 6:45 PM PURCHASING AND CLAIMS SUPERVISOR) CARBAMAZEPINE LEVEL 9.4 4.0 - 12.0 ug/mL [facility] Comment:Carbamazepine Toxic Level => 20 ug/mL Blood specimen (specimen) 08/07/2008 6:45 PM PURCHASING AND CLAIMS SUPERVISOR 08/07/2008 6:48 PM PURCHASING AND CLAIMS SUPERVISOR Sumit Camargo MD CHEMISTRY ORDERABLES Final Res ult Performing Organization Address [facility] Phone Number INTERFACE SYSTEM Refer to clinic/hospital department [facility] CLIA# [id number] [address] [place] [address] * (ABNORMAL) D-DIMER (08/07/2008 6:45 PM PURCHASING AND CLAIMS SUPERVISOR) D-DIMER QUANT 0.52(H) <=0.42 ug/mL FEU [facility] Comment: DVT Screen reference range <0.45 ug/mL FEU D. Dimer Interpretation: The reference range is not clearly established in uncomplicated pregnancies. Values above the upper limit of the reference range are common from the 31st to 40th week of . High negative predictive values for DVT have been reported with the current methodology, as part of a comprehensive medical examination, including risk stratification. Blood specimen (specimen) 08/07/2008 6:45 PM PURCHASING AND CLAIMS SUPERVISOR 08/07/2008 6:48 PM PURCHASING AND CLAIMS SUPERVISOR Sumit Camargo MD HEMATOLOGY ORDERABLES Final Re sult Performing Organization Address [facility] Phone Number INTERFACE SYSTEM Refer to clinic/hospital department [facility] CLIA# [id number] [address] [place] [address] * C-REACTIVE PROTEIN (08/07/2008 6:45 PM PURCHASING AND CLAIMS SUPERVISOR) Pathologist [facility] CRP <0.2 0.0 - 0.8 mg/dL [facility] Blood specimen (specimen) 08/07/2008 6:45 PM PURCHASING AND CLAIMS SUPERVISOR 08/07/2008 6:48 PM PURCHASING AND CLAIMS SUPERVISOR Sumit Camargo MD CHEMISTRY ORDERABLES Final Res ult Performing Organization Address [facility] de Phone Number INTERFACE SYSTEM Refer to clinic/hospital department [facility] CLIA# [id number] [address] [place] [address] * (ABNORMAL) COMPREHENSIVE METABOLIC PANEL (08/07/2008 6:45 PM PURCHASING AND CLAIMS SUPERVISOR) POTASSIUM 3.6 3.5 - 4.9 mmol/L [facility] TOTAL PROTEIN 7.0 6.3 - 8.6 g/dL [facility] GLUCOSE 79 65 - 99 mg/dL [facility] AST 21 12 - 32 U/L [facility] BUN 8 6 - 20 mg/dL [facility] CALCIUM 9.9 8.6 - 10.2 mg/dL [facility] ALBUMIN 4.3 3.4 - 4.8 g/dL [facility] CHLORIDE 104 96 - 108 mmol/L [facility] CREATININE 0.55 0.51 - 0.95 mg/dL [facility] ALT 16 0 - 31 U/L [facility] SODIUM 137 135 - 145 mmol/L [facility] ALKALINE PHOSPHATASE 112(H) 35 - 104 U/L [facility] CO2 26 22 - 30 mmol/L [facility] BILIRUBIN TOTAL 0.4 0.2 - 1.0 mg/dL [facility] GFR, >60 >=60 mL/min/1. 7 sq meter [facility] GFR >60 >=60 mL/min/1. 7 sq meter [facility] Comment: Modification of Diet in Renal Disease (MDRD) study formula. Estimated GFR rate interpretative information for both Americans and non- Americans is available on the [facility] Intranet at: [email or web address] Select: Lab Policies and Procedures Select: Reference Ranges - GFR Blood specimen (specimen) 08/07/2008 6:45 PM PURCHASING AND CLAIMS SUPERVISOR 08/07/2008 6:48 PM PURCHASING AND CLAIMS SUPERVISOR us Sumit Camargo MD CHEMISTRY ORDERABLES Edited INTERFACE SYSTEM Refer to clinic/hospital department [facility] CLIA# [id number] [address] [facility] [place] [address] documented in this encounter Visit Diagnoses Not on filedocumented in this encounter Care Teams Circus Train Supervisor Relationship Specialty Start Date End Date Nayely Singh MD [address] [place] [address] PCP - General Family Practice 12/10/23 documented as of this encounter
--- OUTSIDE RECORDS SUMMARY | 2025-05-10 10:33 | XMS_ITS | Data Portability ---
Author Organization [place] [facility] Main Office Address [address] [place] [address] Assessment Encounter Date Assessment Date Assessment LastModified by Organization Details LastModified Time 12/10/2024 12/10/2024 The patient has severe right thumb CMC arthrosis, she also has either recurrent carpal tunnel syndrome and or ulnar neuropathy versus neuropathy possibly due to previous breast cancer treatment. We talked about treatment options today in detail, I have recommended a shot of cortisone for the thumb she wanted proceed therefore under sterile conditions I injected the patient has right thumb CMC joint in the office with 2 cc of 0.5% bupivacaine and 10 mg of Kenalog. Patient tolerated procedure well. We can not give her a nonsteroidal anti-inflammator y medication she is on blood thinners chronically. We are somewhat limited in our treatment approach because of this. As far as her numbness and tingling goes in her right hand we could get an EMG nerve conduction velocity test she wanted to proceed. We will get that done have her see Dr. Munoz with the results to talk about further treatment options from there. If she does have significant carpal tunnel syndrome or cubital tunnel syndrome nerve release may be affective unless she has neuropathy generalized in nature. We are getting her a cock-up wrist brace to wear at night today this was fitted in the office for the patient's best comfort and support. The patient and her voiced understanding and agrees with the above plan they will call for any further problems difficulties or questions. [email or web address] Not available 12/10/2024 12:07:29 Plan of Treatment Reminders Order Date Submit Date Provider Last Modified By Organization Details Last Modified Time Details Appointments None recorded. Lab None recorded. Referral None recorded. Procedures injection/a spiration joint/bursa (PROC) 2024 025 [email or web address] In-Office Order, Internal Use Only DO Not Attach Compendium DO Not Attach Compendium, Do Not Delete/merge, [id number] 11:49:56 Surgeries None recorded. Imaging XR, hand 2024 025 [email or web address] [facility] [place], [address], [place], [address], 13:14:47 electromyog beatris + nerve conduction study [address] (Cardiology & Emg), [address], [place], [address], 12:37:00 Medication Orders bupivacaine HCl 0.5 % (5 mg/mL) injection solution [address] [facility]62, [address] [place], [place], [phone], 12:32:47 Kenalog 10 mg/mL suspension for injection [address] [facility] [place] [address] [facility]47889, [address] [place], [place], [phone], 12:32:47 Patient TargetsNo targets recorded. Patient InstructionsNo instructions recorded. Reason for Referral None Reported. Results Created Date Observation Date Name Description Value Unit Range Abnormal Flag Note LastModifiedBy Organization Detail LastModifiedTime 12/11/19 25 XR, hand No observ ation record ed. [email or web address] [facility] [place] [address], [place], [address], 12/10/2024 12:05:44 Result Notes None recorded. Problems Name Problem SNOMED Code Status Onset Date Resolution Date Notes Provider Name and Address Organization Details Recorded Time Pain of right hand 8462203426291 09 Active 2024 Annika Uriarte CNA null, [place] [facility] 5 11:08:23 Arthritis of first carpometaca rpal joint of right hand 5876361537463 100 Active 2024 Gela baron PA [facility] [employer] 5 11:48:17 Carpal tunnel syndrome of right wrist 0771375581316 08 Active 2024 Gela baron PA [facility] Diya [facility] 11:48:33 Problem Notes None recorded. Procedures Surgical History Date Name Laterality Status Provider Name and Address Organization Details Recorded Time 1 Brain Surgery completed Annika Uriarte CNA [facility] 12/10/2024 11:28:25 Imaging Results None recorded. Procedure Notes None recorded. Medical Equipment None Reported. Allergies No known drug allergies Medications Name Sig Start Date Stop Date Status Note LastModified by Organization Details LastModified Time furosemide 40 mg tablet TAKE 1 TABLET BY MOUTH DAILY active Not Available Not Available No t Available nystatin 100,000 unit/mL oral suspension SHAKE LIQUID AND TAKE 5 ML BY MOUTH FOUR TIMES DAILY 12/10 completed Not Available Not Available Not Available bupivacaine HCl 0.5 % (5 mg/mL) injection solution Take 10 mg by injection route. 2024 active Not Available Not Available Not Avai lable ondansetron 8 mg disintegrat ing tablet DISSOLVE 1 TABLET ON TOP OF TONGUE THEN SWALLOW EVERY 8 HOURS NEEDED FOR NAUSEA AND VOMITING 12/10 completed Not Available Not Available Not Available lidocaine-p rilocaine 2.5 %-2.5 % topical cream APPLY A QUARTER SIZE AMOUNT TO PORT SITE 30 MINUTES BEFORE NEEDLE STICK active Not Available Not Available No t Available Kenalog 10 mg/mL suspension for injection Take 10 mg by injection route. 2024 active [facility]: 0003- 0494- 20 Not Available Not Available Not Available cephalexin 500 mg capsule TAKE 1 CAPSULE BY MOUTH EVERY 12 HOURS FOR 10 DAYS 12/10 completed Not Available Not Available Not Available montelukast 10 mg tablet TAKE 1 TABLET BY MOUTH EVERY EVENING active Not Available Not Available No t Available mupirocin 2 % topical ointment APPLY TOPICALLY IN EACH NOSTRIL EVERY 12 HOURS 12/10 completed Not Available Not Available Not Available doxycycline hyclate 100 mg tablet TAKE 1 TABLET BY MOUTH EVERY 12 HOURS active Not Available Not Available No t Available amoxicillin 500 mg-potsaritaiu m clavulanate 125 mg tablet TAKE 1 TABLET BY MOUTH EVERY 12 HOURS 12/10 completed Not Available Not Available Not Available Xarelto 20 mg tablet TAKE 1 TABLET BY MOUTH DAILY WITH EVENING MEAL active Not Available Not Available No t Available Vitals Date Recorded Body height Body mass index (BMI) Body weight Provider Name and Address Organization Details Last Updated DateTime 12/10/2024 180.34 cm 21.3 kg/m2 42388.63 g Annika Uriarte CNA [employer] [facility] 12/10/2024 11:24:31 Social History Question Answer Notes LastModified by Organizat ion Details LastModified Time Tobacco Smoking Status Former Smoker TERI Alicea [facility] 12/10/2024 11:28:00 When Did You Quit Smoking? 18+yearssin tyree etbrynn 1978 Smoked 1 1/2 Packs A Day For One Year Information not available 12/10/2024 Sex: Unknown Functional Status Question Answer Note LastModified by Organization D etails LastModified Time What is your level of alcohol consumption? None Information not available 12/10/2024 Mental Status None recorded. Family History Relationship Description Onset Age of this Age Resolved Age Notes LastModified by Organization Details LastModified Time Sister Diabetes mellitus [email or web address] Not available 2024 11:26:21 Sister History of malignant neoplasm [email or web address] Not available 2024 11:26:36 Brother History of malignant neoplasm [email or web address] Not available 2024 11:26:36 Medical History Condition Response CANCER: SPECIFY Y ULCERS Y USE OF BLOOD THINNERS Y BLOOD CLOTS Y STROKE/TIA Y Gynecological HistoryNo gynecological history recorded. Obstetrics History GPAL:G 0 P 0 0 0 0 Past Encounters Encounter ID Performer Location Encounter Start Date Encounter Closed Date Diagnosis/Indication Diagnosis SNOMED-CT Code Diagnosis ICD10 Code Diagnosis IMO Codes Diagnosis Note [id number] Jared Munoz MD [facility] [place] [address] [place] [address] 12/10/2024 11:03:32 12/10/2024 12:37:00 Pain of right hand 1752349896 05495 M79.160 1744007 Arthritis of first carpometacarpal joint of right hand 9916038609 407888 M18.11 22256887 Carpal sandip dav syndrome of right wrist 2741872074 07933 G56.01 [id number] Health Concerns Section Related Observation LastModified by Organization Detai ls LastModified Time None Recorded Concern Status LastModified by Organization Details LastModified Time None Recorded Advance Directives Directive None Recorded Payers Insurance Date Sequence Insurance Name Policy Number Policy Payne Covered Member ID Payne Member ID Guarantor Name 12/10/2024 1 [place] Racquel Martha [id number] Racquel [place] 12/10/2024 2 [place] WHEN MEDICARE OR MEDICARE REPLACEMENT PRIMARY) Racquel M Martha [id number] Racquel Hagerwood 12/28/2024 1 [facility] (MEDICARE REPLACEMENT/AD VANTAGE - PPO) [id number] Racquel Concord [id number] Racquel Concord Notes Date Note Type Note Provider Name and Address Organization Details Recorded Time 12/10/2024 text/html the patient is a 64-year-old female who presents with a chronic history of right hand numbness and tingling and pain at the base of the thumb right hand. She states many years ago she had a right carpal tunnel release she was doing well until the last 6-8 months when she started to develop numbness and tingling in all of her fingers. She is unable to say that it is more in the median versus ulnar nerve distribution states all of her fingers bother her. She complains of nocturnal awakening states she has to shake her hand to try to wake it up. She also frequently drops things has trouble manipulating fine objects. Also with any gripping or pinching this causes pain at the basilar thumb joint. She has a hard time going about her daily activities. She only has the use of her right hand she had a stroke when she was 20 years of age that affected her left side upper extremity quite severely she basically has no use of her left arm. She has recently gone through a course of treatment for breast cancer she states she is now cancer-free this was surgically removed June of 2023. She is currently on blood thinners we can not give her nonsteroidal anti-inflammatory medication. She comes in today for initial evaluation and treatment of the right hand symptoms as described. Denies any trauma or injury. A new past medical history sheet was reviewed and signed on the intake sheet of today's date drug allergies current medications family social history previous surgical history 10 point review of systems was reviewed and discussed in detail today with the patient. TONY Barker [address] [facility], [facility] [address], [place], [address], [place] [facility] 12/10/2024 12:07:45 OBGyn Episode No OBEpisode recorded.
--- OUTSIDE RECORDS SUMMARY | 2025-05-10 10:33 | XMS_ITS | Clinical Summary ---
Author Organization [facility] Address [address] [place] [address] Care Team Providers Care Chargeback Analyst Name Role Phone Nayely Singh MD Primary Care Provider [phone] Allergies No known active allergies Medications oxyCODONE [...] Diagnosed Date Coronary artery disease invo lving venetie ira coronary artery of venetie ira heart without angina pectoris 05/23/2023 At high [...] lidoderm patches and dilaudid IV PRN, passed BUNDLE CUTTER eval today, liberalize to oral multimodal regimen [...] bedside swallow in ICU - 04/22 passed BUNDLE CUTTER eval for reg/thin, assist with feeds iso [...] 04/23 PT recs for inpatient rehab, case reviewer notified, ADD 04/25 04/24 patient agreeable to short term IPR placement in [place], [place] area -- case management aware, MAKAYLA gomez denied patient for medical reasons, [facility] evaluating, ADD 04/25 --- additional discussions with [...] medical conditions F/u prior vascular surgeon for intermediate evaluation of identified L iliac vein in- stent thrombus F/u [facility] for wound check and staple removal DAKOTA (acute kidney injury) 04/20/2023 Overview (05/20/2023): Last Assessment & Plan: DAKOTA likely due to hypovolemia and sepsis 04/20: Low UOP, BUN 45 (37), Cr 1.31 (0.89). Continue management per ICU. 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 SBO r/t parastomal hernia incarceration. --- transferred to [facility] for higher level of care 04/19 [...] inpatient due to risk for evisceration 05/05-05/06 [id number] AFVSS, wbc 4 from 4, abx: none, [...] buttock 02/28/2021 Superficial ulcer of lower extremity 11/17/2018 S/P IVC filter 12/25/2016 Venous insufficiency of leg 12/12/2016 Brain aneurysm 11/25/[address] 11/25/2016 H/O colectomy 11/25/2016 History of heart artery stent 11/25/2016 History of seizures 11/25/2016 History of cerebrovascular accident 11/22/2016 Ulcer of left ankle 11/22/2016 Deep vein thrombosis 10/19/2016 Overview (05/20/2023): Last Assessment & Plan: DVT [...] arterial occlusive disease 10/19/2016 Cerebrovascular accident 09/24/2016 Overview (05/20/2023): Last Assessment & Plan: H/O [...] heart 09/24/2016 Pain in joint 09/24/2016 Seizure 09/24/2016 Overview (05/20/2023): Last Assessment & Plan: [...] Encounter for preventive health examination 11/18/2016 05/26/2023 Immunizations Immunization Administration Dates Next Due Influenza Adult (Generic) 04/23/2022,03/17/2020 [facility] COVID-19 (12+) MRNA, LNP-S, PF, 100 MCG/ 0.5 ML DOSE 01/02/2021 [facility] COVID-19 (MAINFRAME APPLICATIONS DEVELOPER RON CHRIS), MRNA, LNP-S, PF, 50 MCG/ [...] Comments Blood Pressure 122/72 06/03/2023 4:33 PM MEAT WRAPPER Pulse 77 06/03/2023 4:33 PM MEAT WRAPPER Temperature 36.6 C (97.9 F) 06/03/2023 4:33 PM MEAT WRAPPER Respiratory Rate 18 06/03/2023 4:33 PM MEAT WRAPPER Oxygen Saturation 96% 06/03/2023 4:33 PM MEAT WRAPPER Inhaled Oxygen Concentration - - Weight 67.1 kg (148 lb) 06/03/2023 4:33 PM MEAT WRAPPER Height 175.3 cm (5' 9) 06/03/2023 4:33 PM MEAT WRAPPER Body Mass Index 21.86 06/03/2023 4:33 PM MEAT WRAPPER Plan of Treatment Health Maintenance Due Date [...] Zoster Vaccines (2 of 2) 09/19/2022 07/25/2022 PHQ-2 (Physician [place]) 06/30/2024 COVID-19 Vaccine (4 - 2024-2 6 season) 2025 08/04/2021, 01/30/2021, 01/02/2021 Influenza Adult (#1) 2025 04/23/2022, 03/17/2020 DTaP, Tdap and Td Vaccines ( 2 - Td or Tdap) 04/03/2032 04/03/2022 Pneumococcal Vaccine: 50+ Years Completed 04/23/2022, 03/17/2020 Hepatitis A Vaccines Aged Out No long er eligible based on patient's age to complete this topic Meningococcal B Vaccine Aged Out No l onger eligible based on patient's age to complete this topic Meningococcal Vaccine Aged Out No benita mechelle eligible based on patient's age to complete this topic RSV Immunizations Under 20 Months Aged Out No longer eligible b ased on patient's age to complete this topic Insurance [place] [employer] Care Teams Chargeback Analyst Relationship Specialty Start Date End Date Nayely Singh MD [address] [place], [place] [id number] PCP - General ADULT MEDICINE 08/25/22
--- NOTE | 2025-05-10 11:33 | S_PTH ---
PATIENT: Racquel Thomas LOC: [facility] U#:[id number] AGE/SX: 64/F ROOM: RE05/10/[address]: Sascha Donohue MD : 1960 BED: DIS: 05/10/2025 SPEC #: [id number] RECD: 05/10/25 11:39 STATUS: CAMPBELL REQ #: [id number] TADEO: 05/10/25 11:[address]: Sascha Donohue DEPT: [facility] Surgical RECD BY: Grant Hernandez ENTERED: 05/10/25 11:39 SP TYPE: Surgical OTHR DR: Susan Ayala, Tissues: A - Lymph Node Biopsy Procedures: TTF Unstained Slides Hematoxylin and Eosin Stain Gross and Microscopic Level 4 CEA ER-60 RI-60 MIB-60 HER 2-60 S 100 Synaptoshysin Chromogranin Stain CK 20 CK 7 RHEA-3
--- OUTSIDE RECORDS SUMMARY | 2025-06-22 18:00 | XMS_ITS | Clinical Summary ---
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 Name Role Phone SANTIAGO HICKEY DO Unavailable Unavailable [place] CONWAY, TYLER Unavailable Unavailable MAURY VELIZ, CORY Unavailable Unavailable Payers Payer Name Policy Type Policy Number Effective Date Expira tion Date [facility].[id number] Problems Condition Name Condition Details Condition Category Status Onset Date Resolution Date Last Treatment Date Treating Clinician Comments CELLULITIS OF RIGHT LOWER LIMB Active 2024-06 00:00: 00 Allergies, Adverse Reactions, Alerts Allergy Name Allergy Type Status Severity Reaction(s) Onset Date Inactive Date Treating Clinician Comments NO KNOWN ALLERGIES Propensity to adverse reactions Active 2024-06 16:51: 18 Medications Ordered Medication Name Filled Medication Name Start Date Stop Date Current Medication? Ordering Clinician Indication Dosage Frequency Signature (SIG) Comments Components CIPRO ORAL 2016-06 00:00: 00 06-05 00:00 :00 No 500 MGONE TAB EVERY 12 HOURS 500 MGONE TAB EVERY 12 HOURS (route: ) Med Classific ation: ANTI-INFE CTIVE AGENTS METHADONE ORAL 01-29 00:00: 00 05-23 10:22 :10 No 5 mg1 TABLET TWO TIMES A DAY 5 mg1 TABLET TWO TIMES A DAY (route: ) Alternate Route: BY MOUTH. Med Classific ation: ANALGESIC , ANTI-INFL AMMATORY OR ANTIPYRET IC DICLOXACILL IN ORAL 2016-06 0 00:00: 00 05-23 10:22 :07 No 500 mg1 CAPSULE EVERY 8 HOURS 500 mg1 CAPSULE EVERY 8 HOURS (route: ) Alternate Route: BY MOUTH. Med Classific ation: ANTI-INFE CTIVE AGENTS CEPHALEXIN ORAL 2016-06 00:00: 05-23 10:19 :30 No 500 mg1 CAPSULE THREE TIMES A DAY 500 mg1 CAPSULE THREE TIMES A DAY (route: ) Alternate Route: BY MOUTH. Med Classific ation: ANTI-INFE CTIVE AGENTS CEPHALEXIN ORAL 2016-06 00:00: 00 06-05 00:00 :00 No 500 MGONE TAB 4 TIMES DAILY 500 MGONE TAB 4 TIMES DAILY (route: ) Med Classific ation: ANTI-INFE CTIVE AGENTS Immunizations Ordered Immunization Name Filled Immunization Name Date Status Comments Refusal Reason INFLUENZA, TIV (INACTIVATED) 2025-03-30 00:00:00 Vital Signs Vital Name Observation Time Observation Value Commen ts Temperature 2025-05-09 15:11:00.000 97.9 [degF] Temperature 2025-05-05 09:54:00.000 98 [degF] Temperature 2025-05-02 14:48:00.000 97.6 [degF] Temperature 2025-04-26 10:13:00.000 98.2 [degF] BMI (%) 2025-04-26 10:13:00.000 21 kg/m2 Height 2025-04-26 10:13:00.000 71 [in_us] Pulse 2025-05-09 15:11:00.000 85 /min Pulse 2025-05-05 09:54:00.000 65 /min Pulse 2025-05-02 14:48:00.000 79 /min Pulse 2025-04-26 10:13:00.000 73 /min O2 Saturation (%) 2025-04-26 10:13:00.000 96 % Respirations 2025-05-09 15:11:00.000 20 /min Respirations 2025-05-05 09:54:00.000 20 /min Respirations 2025-05-02 14:48:00.000 20 /min Respirations 2025-04-26 10:13:00.000 16 /min Weight (lbs) 2025-04-26 10:13:00.000 157 [lb_av] Systolic Blood Pressure 2025-05-09 15:11:00.000 124 mm [Hg] Systolic Blood Pressure 2025-05-05 09:54:00.000 112 mm [Hg] Systolic Blood Pressure 2025-05-02 14:48:00.000 120 mm [Hg] Systolic Blood Pressure 2025-04-26 10:13:00.000 100 mm [Hg] Diastolic Blood Pressure 2025-05-09 15:11:00.000 82 mm [Hg] Diastolic Blood Pressure 2025-05-05 09:54:00.000 62 mm [Hg] Diastolic Blood Pressure 2025-05-02 14:48:00.000 82 mm [Hg] Diastolic Blood Pressure 2025-04-26 10:13:00.000 60 mm [Hg] Plan of Treatment Planned Activity Planned Date Details Comments Future Scheduled Test SN 1WK1,2W K2,1WK6 FALL REDUCTION MANAGEMENT; RN TO ASSESS AND OBSERVE, GROOVER AND STRIPER OPERATOR/SHOWCASE TRIMMER TO OBSERVE FALL RISK FACTORS AND EDUCATE PATIENT/CAREGIVER ON STRATEGIES TO MINIMIZE THE RISK OF FALLING. [code = SN 1WK1,2WK2,1WK6 FALL REDUCTION MANAGEMENT; RN TO ASSESS AND OBSERVE, GROOVER AND STRIPER OPERATOR/SHOWCASE TRIMMER TO OBSERVE FALL RISK FACTORS AND EDUCATE PATIENT/CAREGIVER ON STRATEGIES TO MINIMIZE THE RISK OF FALLING.] Future Scheduled Test NEUROLOGIC AL SYSTEM MANAGEMENT; RN TO ASSESS AND TEACH, SHOWCASE TRIMMER/GROOVER AND STRIPER OPERATOR TO OBSERVE AND TEACH RELATED TO ALTERED NEUROLOGICAL STATUS TO MINIMIZE COMPLICATIONS AND REDUCE HOSPITALIZATION. [code = NEUROLOGICAL SYSTEM MANAGEMENT; RN TO ASSESS AND TEACH, SHOWCASE TRIMMER/GROOVER AND STRIPER OPERATOR TO OBSERVE AND TEACH RELATED TO ALTERED NEUROLOGICAL STATUS TO MINIMIZE COMPLICATIONS AND REDUCE HOSPITALIZATION.] Future Scheduled Test CEREBRAL V ASCULAR ACCIDENT MANAGEMENT; RN/SHOWCASE TRIMMER/GROOVER AND STRIPER OPERATOR TO PROVIDE SKILLED TEACHING AND MANAGEMENT OF POST CEREBRAL VASCULAR ACCIDENT. [code = CEREBRAL VASCULAR ACCIDENT MANAGEMENT; RN/SHOWCASE TRIMMER/GROOVER AND STRIPER OPERATOR TO PROVIDE SKILLED TEACHING AND MANAGEMENT OF POST CEREBRAL VASCULAR ACCIDENT.] Future Scheduled Test SEIZURE DI SORDER MANAGEMENT; RN/SHOWCASE TRIMMER/GROOVER AND STRIPER OPERATOR TO PROVIDE INSTRUCTION REGARDING MANAGEMENT OF SEIZURE DISORDER AND SEIZURE PRECAUTIONS. [code = SEIZURE DISORDER MANAGEMENT; RN/SHOWCASE TRIMMER/GROOVER AND STRIPER OPERATOR TO PROVIDE INSTRUCTION REGARDING MANAGEMENT OF SEIZURE DISORDER AND SEIZURE PRECAUTIONS.] Future Scheduled Test ANEMIA MAN AGEMENT; RN TO ASSESS AND TEACH, SHOWCASE TRIMMER/GROOVER AND STRIPER OPERATOR TO OBSERVE AND TEACH AND PROVIDE EDUCATION ON ANEMIA. [code = ANEMIA MANAGEMENT; RN TO ASSESS AND TEACH, SHOWCASE TRIMMER/GROOVER AND STRIPER OPERATOR TO OBSERVE AND TEACH AND PROVIDE EDUCATION ON ANEMIA.] Future Scheduled Test RN TO OBSE RVE, ASSESS, EVALUATE, AND DEVELOP AN INDIVIDUALIZED PLAN OF CARE. AGENCY MAY ACCEPT ORDERS FROM CONSULTING PHYSICIANS . RN TO OBSERVE AND ASSESS, GROOVER AND STRIPER OPERATOR/SHOWCASE TRIMMER TO OBSERVE FOR RISK FOR FALLS AND INSTRUCT IN FALL PREVENTION, HOME SAFETY, MEDICATION MANAGEMENT, INFECTION PREVENTION, AND NUTRITION MANAGEMENT. AGENCY MAY PERFORM A RESUMPTION OF CARE VISIT FOLLOWING ANY HOSPITAL ADMISSION. RN/GROOVER AND STRIPER OPERATOR/SHOWCASE TRIMMER TO MONITOR CO-MORBID CONDITIONS LISTED ON THE PLAN OF CARE AND ANY NEW CONDITIONS THAT PRESENT THEMSELVES DURING THIS EPISODE TO IDENTIFY CHANGES AND INTERVENE TO MINIMIZE COMPLICATIONS. [code = RN TO OBSERVE, ASSESS, EVALUATE, AND DEVELOP AN INDIVIDUALIZED PLAN OF CARE. AGENCY MAY ACCEPT ORDERS FROM CONSULTING PHYSICIANS . RN TO OBSERVE AND ASSESS, GROOVER AND STRIPER OPERATOR/SHOWCASE TRIMMER TO OBSERVE FOR RISK FOR FALLS AND INSTRUCT IN FALL PREVENTION, HOME SAFETY, MEDICATION MANAGEMENT, INFECTION PREVENTION, AND NUTRITION MANAGEMENT. AGENCY MAY PERFORM A RESUMPTION OF CARE VISIT FOLLOWING ANY HOSPITAL ADMISSION. RN/GROOVER AND STRIPER OPERATOR/SHOWCASE TRIMMER TO MONITOR CO-MORBID CONDITIONS LISTED ON THE PLAN OF CARE AND ANY NEW CONDITIONS THAT PRESENT THEMSELVES DURING THIS EPISODE TO IDENTIFY CHANGES AND INTERVENE TO MINIMIZE COMPLICATIONS.] Future Scheduled Test GASTROINTE STINAL MANAGEMENT; RN TO ASSESS AND TEACH, SHOWCASE TRIMMER/GROOVER AND STRIPER OPERATOR TO OBSERVE AND TEACH RELATED TO ALTERED GASTROINTESTINAL STATUS TO MINIMIZE COMPLICATIONS AND REDUCE HOSPITALIZATION. [code = GASTROINTESTINAL MANAGEMENT; RN TO ASSESS AND TEACH, SHOWCASE TRIMMER/GROOVER AND STRIPER OPERATOR TO OBSERVE AND TEACH RELATED TO ALTERED GASTROINTESTINAL STATUS TO MINIMIZE COMPLICATIONS AND REDUCE HOSPITALIZATION.] Future Scheduled Test MALNUTRITI ON MANAGEMENT; RN TO ASSESS AND TEACH, SHOWCASE TRIMMER/GROOVER AND STRIPER OPERATOR TO OBSERVE AND TEACH AND INSTRUCT PATIENT / CAREGIVER ON INTERVENTIONS TO IMPROVE NUTRITIONAL INTAKE AND PATIENT WELLBEING. [code = MALNUTRITION MANAGEMENT; RN TO ASSESS AND TEACH, SHOWCASE TRIMMER/GROOVER AND STRIPER OPERATOR TO OBSERVE AND TEACH AND INSTRUCT PATIENT / CAREGIVER ON INTERVENTIONS TO IMPROVE NUTRITIONAL INTAKE AND PATIENT WELLBEING.] Future Scheduled Test PAIN MANAG EMENT; RN TO ASSESS AND TEACH, SHOWCASE TRIMMER/GROOVER AND STRIPER OPERATOR TO OBSERVE AND TEACH AND PROVIDE EDUCATION ON PAIN MANAGEMENT TECHNIQUES. [code = PAIN MANAGEMENT; RN TO ASSESS AND TEACH, SHOWCASE TRIMMER/GROOVER AND STRIPER OPERATOR TO OBSERVE AND TEACH AND PROVIDE EDUCATION ON PAIN MANAGEMENT TECHNIQUES.] Future Scheduled Test RN TO ASSE SS AND TEACH, GROOVER AND STRIPER OPERATOR/SHOWCASE TRIMMER TO OBSERVE AND TEACH FOR SIGNS AND SYMPTOMS OF SEPSIS AND/OR POST-SEPSIS SYNDROME AND INTERVENE TO MINIMIZE COMPLICATIONS. RN/GROOVER AND STRIPER OPERATOR/SHOWCASE TRIMMER TO PROVIDE SKILLED TEACHING TO PATIENT/CAREGIVER ON SEPSIS AND SELF-MANAGEMENT TECHNIQUES. RN/GROOVER AND STRIPER OPERATOR/SHOWCASE TRIMMER TO MONITOR PATIENT/CAREGIVER ADHERENCE TO MONITOR AND RECORD VITAL SIGNS INCLUDING TEMPERATURE, HEART RATE, RESPIRATIONS, AND SYMPTOMS. RN/GROOVER AND STRIPER OPERATOR/SHOWCASE TRIMMER TO PROVIDE USP TO ACCOMPLISH THE PATIENT S PERSONAL GOAL OF DEVASTATING PAIN TO WOUNDS [code = RN TO ASSESS AND TEACH, GROOVER AND STRIPER OPERATOR/SHOWCASE TRIMMER TO OBSERVE AND TEACH FOR SIGNS AND SYMPTOMS OF SEPSIS AND/OR POST-SEPSIS SYNDROME AND INTERVENE TO MINIMIZE COMPLICATIONS. RN/GROOVER AND STRIPER OPERATOR/SHOWCASE TRIMMER TO PROVIDE SKILLED TEACHING TO PATIENT/CAREGIVER ON SEPSIS AND SELF-MANAGEMENT TECHNIQUES. RN/GROOVER AND STRIPER OPERATOR/SHOWCASE TRIMMER TO MONITOR PATIENT/CAREGIVER ADHERENCE TO MONITOR AND RECORD VITAL SIGNS INCLUDING TEMPERATURE, HEART RATE, RESPIRATIONS, AND SYMPTOMS. RN/GROOVER AND STRIPER OPERATOR/SHOWCASE TRIMMER TO PROVIDE USP TO ACCOMPLISH THE PATIENT S PERSONAL GOAL OF DEVASTATING PAIN TO WOUNDS] Future Scheduled Test RN/GROOVER AND STRIPER OPERATOR/SHOWCASE TRIMMER TO PERFORM/TEACH VENOUS STASIS ULCER CARE TO BILATERAL LOWER EXTREMITIES AREA: IRRIGATE/CLEANSE WITH NORMAL SALINE, PAT DRY WITH GAUZE, APPLY POLYMEN MAX NON ABSORBENT DRESSING, MAY APPLY SKIN BARRIER TO PERIWOUND AREA PRN TO PREVENT SKIN MACERATION AND PROTECT PERIWOUND, COVER WITH ABD PADS, SECURE WITH KERLIX CHANGE DRESSING EVERY 3 DAYS AND PRN SN TO PERFORM ON DAYS OF SNV [code = RN/GROOVER AND STRIPER OPERATOR/SHOWCASE TRIMMER TO PERFORM/TEACH VENOUS STASIS ULCER CARE TO BILATERAL LOWER EXTREMITIES AREA: IRRIGATE/CLEANSE WITH NORMAL SALINE, PAT DRY WITH GAUZE, APPLY POLYMEN MAX NON ABSORBENT DRESSING, MAY APPLY SKIN BARRIER TO PERIWOUND AREA PRN TO PREVENT SKIN MACERATION AND PROTECT PERIWOUND, COVER WITH ABD PADS, SECURE WITH KERLIX CHANGE DRESSING EVERY 3 DAYS AND PRN SN TO PERFORM ON DAYS OF SNV] Future Scheduled Test COLOSTOMY/ ILEOSTOMY TEACHING/MANAGEMENT; RN/SHOWCASE TRIMMER/GROOVER AND STRIPER OPERATOR TO INSTRUCT PATIENT/CAREGIVER ON COLOSTOMY/ILEOSTOMY MANAGEMENT INCLUDING APPLIANCE TYPE, USAGE, AND STOMAL CARE. RN/SHOWCASE TRIMMER/GROOVER AND STRIPER OPERATOR MAY PERFORM OSTOMY APPLIANCE CHANGE AND STOMA CARE EACH VISIT NEEDED. [code = COLOSTOMY/ILEOSTOMY TEACHING/MANAGEMENT; RN/SHOWCASE TRIMMER/GROOVER AND STRIPER OPERATOR TO INSTRUCT PATIENT/CAREGIVER ON COLOSTOMY/ILEOSTOMY MANAGEMENT INCLUDING APPLIANCE TYPE, USAGE, AND STOMAL CARE. RN/SHOWCASE TRIMMER/GROOVER AND STRIPER OPERATOR MAY PERFORM OSTOMY APPLIANCE CHANGE AND STOMA CARE EACH VISIT NEEDED.] Future Scheduled Test PRN VISITS ; NUMBER OF RN/GROOVER AND STRIPER OPERATOR/SHOWCASE TRIMMER VISITS: 1 RN/GROOVER AND STRIPER OPERATOR/SHOWCASE TRIMMER TO PERFORM: WOUND CARE FOR THE FOLLOWING REASONS: STASIS ULCER [code = PRN VISITS; NUMBER OF RN/GROOVER AND STRIPER OPERATOR/SHOWCASE TRIMMER VISITS: 1 RN/GROOVER AND STRIPER OPERATOR/SHOWCASE TRIMMER TO PERFORM: WOUND CARE FOR THE FOLLOWING REASONS: STASIS ULCER] Future Scheduled Test CANCER MAN AGEMENT; RN TO ASSESS AND TEACH, SHOWCASE TRIMMER/GROOVER AND STRIPER OPERATOR TO OBSERVE AND TEACH AND PROVIDE EDUCATION ON CANCER. [code = CANCER MANAGEMENT; RN TO ASSESS AND TEACH, SHOWCASE TRIMMER/GROOVER AND STRIPER OPERATOR TO OBSERVE AND TEACH AND PROVIDE EDUCATION ON CANCER.] Future Scheduled Test RISK FOR H OSPITALIZATION; RN TO ASSESS/TEACH, SHOWCASE TRIMMER/GROOVER AND STRIPER OPERATOR TO OBSERVE/TEACH PATIENT/CAREGIVER ON RISK FOR HOSPITALIZATION/EMERGENCY ROOM VISITS, TEACH SIGNS AND SYMPTOMS THAT PUT PATIENT AT RISK, WHEN TO NOTIFY NURSE/PHYSICIAN OF COMPLICATIONS/DECLINE, AND WHEN TO CALL 911. [code = RISK FOR HOSPITALIZATION; RN TO ASSESS/TEACH, SHOWCASE TRIMMER/GROOVER AND STRIPER OPERATOR TO OBSERVE/TEACH PATIENT/CAREGIVER ON RISK FOR HOSPITALIZATION/EMERGENCY ROOM VISITS, TEACH SIGNS AND SYMPTOMS THAT PUT PATIENT AT RISK, WHEN TO NOTIFY NURSE/PHYSICIAN OF COMPLICATIONS/DECLINE, AND WHEN TO CALL 911.] Future Scheduled Test CARDIOVASC ULAR SYSTEM; RN TO ASSESS/TEACH, GROOVER AND STRIPER OPERATOR/SHOWCASE TRIMMER TO OBSERVE/TEACH RELATED TO ALTERED CARDIOVASCULAR STATUS TO MINIMIZE COMPLICATIONS AND REDUCE HOSPITALIZATION. [code = CARDIOVASCULAR SYSTEM; RN TO ASSESS/TEACH, GROOVER AND STRIPER OPERATOR/SHOWCASE TRIMMER TO OBSERVE/TEACH RELATED TO ALTERED CARDIOVASCULAR STATUS TO MINIMIZE COMPLICATIONS AND REDUCE HOSPITALIZATION.] Future Scheduled Test HEART FAIL URE; RN TO ASSESS/TEACH, GROOVER AND STRIPER OPERATOR/SHOWCASE TRIMMER TO OBSERVE/TEACH CARDIOPULMONARY SYSTEM TO IDENTIFY SIGNS OF DECOMPENSATION AND INTERVENE TO MINIMIZE THE SEVERITY OF FLUID OVERLOAD. OBSERVE PATIENT ABILITY TO MONITOR AND RECORD DAILY WEIGHTS AND VITAL SIGNS, INCLUDING PULSE AND BLOOD PRESSURE; RECORD PATIENT REPORTED WEIGHT, OR WEIGH PATIENT NEEDED. REPORT INCREASED EDEMA OR WEIGHT GAIN OF >2 LBS IN 1 DAY OR >5 LBS IN 1 WEEK OR 5LBS OR MORE OVER TARGET WEIGHT. MAY MEASURE ABDOMINAL GIRTH IF UNABLE TO WEIGH. SCALES AND BP MONITOR TO BE PROVIDED IF NEEDED. [code = HEART FAILURE; RN TO ASSESS/TEACH, GROOVER AND STRIPER OPERATOR/SHOWCASE TRIMMER TO OBSERVE/TEACH CARDIOPULMONARY SYSTEM TO IDENTIFY SIGNS OF DECOMPENSATION AND INTERVENE TO MINIMIZE THE SEVERITY OF FLUID OVERLOAD. OBSERVE PATIENT ABILITY TO MONITOR AND RECORD DAILY WEIGHTS AND VITAL SIGNS, INCLUDING PULSE AND BLOOD PRESSURE; RECORD PATIENT REPORTED WEIGHT, OR WEIGH PATIENT NEEDED. REPORT INCREASED EDEMA OR WEIGHT GAIN OF >2 LBS IN 1 DAY OR >5 LBS IN 1 WEEK OR 5LBS OR MORE OVER TARGET WEIGHT. MAY MEASURE ABDOMINAL GIRTH IF UNABLE TO WEIGH. SCALES AND BP MONITOR TO BE PROVIDED IF NEEDED.] Future Scheduled Test SKIN INTEG RITY RN TO ASSESS AND TEACH, GROOVER AND STRIPER OPERATOR/SHOWCASE TRIMMER TO OBSERVE AND TEACH INTEGUMENTARY STATUS TO IDENTIFY CHANGES AND INTERVENE TO MINIMIZE COMPLICATIONS. PROVIDE SKILLED TEACHING OF GENERAL WOUND AND SKIN CARE AND PREVENTION RELATED TO POTENTIAL FOR OR ACTUAL ALTERED SKIN INTEGRITY [code = SKIN INTEGRITY RN TO ASSESS AND TEACH, GROOVER AND STRIPER OPERATOR/SHOWCASE TRIMMER TO OBSERVE AND TEACH INTEGUMENTARY STATUS TO IDENTIFY CHANGES AND INTERVENE TO MINIMIZE COMPLICATIONS. PROVIDE SKILLED TEACHING OF GENERAL WOUND AND SKIN CARE AND PREVENTION RELATED TO POTENTIAL FOR OR ACTUAL ALTERED SKIN INTEGRITY] Future Scheduled Test RN TO ASSE SS AND TEACH, GROOVER AND STRIPER OPERATOR/SHOWCASE TRIMMER TO OBSERVE AND TEACH, TREAT AND EDUCATE ON CELLULITIS SIGNS, SYMPTOMS, AND SELF-CARE MANAGEMENT. [code = RN TO ASSESS AND TEACH, GROOVER AND STRIPER OPERATOR/SHOWCASE TRIMMER TO OBSERVE AND TEACH, TREAT AND EDUCATE ON CELLULITIS SIGNS, SYMPTOMS, AND SELF-CARE MANAGEMENT.] Future Scheduled Test HYPOTENSIO N MANAGEMENT; RN TO ASSESS AND TEACH/ GROOVER AND STRIPER OPERATOR /SHOWCASE TRIMMER TO OBSERVE AND TEACH WARNING SIGNS AND SYMPTOMS TO AVOID HOSPITALIZATION. [code = HYPOTENSION MANAGEMENT; RN TO ASSESS AND TEACH/ GROOVER AND STRIPER OPERATOR /SHOWCASE TRIMMER TO OBSERVE AND TEACH WARNING SIGNS AND SYMPTOMS TO AVOID HOSPITALIZATION.] Future Scheduled Test ARRHYTHMIA MANAGEMENT; RN TO ASSESS AND TEACH, GROOVER AND STRIPER OPERATOR/SHOWCASE TRIMMER TO OBSERVE AND TEACH WARNING SIGNS AND SYMPTOMS TO AVOID HOSPITALIZATION. [code = ARRHYTHMIA MANAGEMENT; RN TO ASSESS AND TEACH, GROOVER AND STRIPER OPERATOR/SHOWCASE TRIMMER TO OBSERVE AND TEACH WARNING SIGNS AND SYMPTOMS TO AVOID HOSPITALIZATION.] Future Scheduled Test MEDICATION MANAGEMENT; RN/GROOVER AND STRIPER OPERATOR/SHOWCASE TRIMMER TO REVIEW MEDICATIONS FOR INTERACTIONS, EFFECTIVENESS OF DRUG THERAPY, AND SIGNS/SYMPTOMS OF ADVERSE REACTIONS. MAY INSTRUCT AND REINFORCE MEDICATION TEACHING RELATED TO THE USE OF MEDICATIONS, DOSAGE, FREQUENCY, PURPOSE, SIDE EFFECTS, AND TO REPORT COMPLICATIONS. [code = MEDICATION MANAGEMENT; RN/GROOVER AND STRIPER OPERATOR/SHOWCASE TRIMMER TO REVIEW MEDICATIONS FOR INTERACTIONS, EFFECTIVENESS OF DRUG THERAPY, AND SIGNS/SYMPTOMS OF ADVERSE REACTIONS. MAY INSTRUCT AND REINFORCE MEDICATION TEACHING RELATED TO THE USE OF MEDICATIONS, DOSAGE, FREQUENCY, PURPOSE, SIDE EFFECTS, AND TO REPORT COMPLICATIONS.] Future Scheduled Test ANTITHROMB OTIC MANAGEMENT; RN TO ASSESS AND TEACH, GROOVER AND STRIPER OPERATOR/SHOWCASE TRIMMER TO OBSERVE/TEACH/MONITOR EFFECTIVENESS OF ANTITHROMBOTIC THERAPY. RN/GROOVER AND STRIPER OPERATOR/SHOWCASE TRIMMER TO INSTRUCT ON SIGNS AND SYMPTOMS OF BLEEDING/ADVERSE REACTIONS TO REPORT TO PHYSICIAN. PATIENT IS TAKING XARELTO, NO LAB MONITORING REQUIRED [code = ANTITHROMBOTIC MANAGEMENT; RN TO ASSESS AND TEACH, GROOVER AND STRIPER OPERATOR/SHOWCASE TRIMMER TO OBSERVE/TEACH/MONITOR EFFECTIVENESS OF ANTITHROMBOTIC THERAPY. RN/GROOVER AND STRIPER OPERATOR/SHOWCASE TRIMMER TO INSTRUCT ON SIGNS AND SYMPTOMS OF BLEEDING/ADVERSE REACTIONS TO REPORT TO PHYSICIAN. PATIENT IS TAKING XARELTO, NO LAB MONITORING REQUIRED] Future Scheduled Test RN TO ASSE SS/TEACH, GROOVER AND STRIPER OPERATOR/SHOWCASE TRIMMER TO OBSERVE/TEACH SURGICAL AFTERCARE MANAGEMENT TO AVOID HOSPITALIZATION. [code = RN TO ASSESS/TEACH, GROOVER AND STRIPER OPERATOR/SHOWCASE TRIMMER TO OBSERVE/TEACH SURGICAL AFTERCARE MANAGEMENT TO AVOID HOSPITALIZATION.] Goal Patient Goal - I WANT THE WOUNDS TO STOP HURTING SO MUCH Goal Provider Goal - PATIENT/CAREGIVER WILL VERBALIZE/DEMONSTRATE UNDERSTANDING OF FALL RISK FACTORS AND IMPLEMENT STRATEGIES TO MINIMIZE FALL RISK. PATIENT/CAREGIVER WILL VERBALIZE/DEMONSTRATE AN ABILITY TO ADHERE TO FALL REDUCTION SELF-MANAGEMENT AND LIFE-STYLE CHANGES BY 06/23/25 Goal Provider Goal - PATIENT / CAREGIVER WILL VERBALIZE/DEMONSTRATE UNDERSTANDING OF MEASURES TO MANAGE ALTERED NEUROLOGICAL STATUS BY 06/23/25 Goal Provider Goal - PATIENT / CAREGIVER WILL VERBALIZE/DEMONSTRATE CARE AND SELF-MANAGEMENT OF CVA TO MINIMIZE COMPLICATIONS AND AVOID HOSPITALIZATION BY END OF EPISODE. Goal Provider Goal - PATIENT/CAREGIVER WILL VERBALIZE UNDERSTANDING OF CARE AND MANAGEMENT OF SEIZURE DISORDER BY 06/23/25 Goal Provider Goal - PATIENT/CAREGIVER WILL VERBALIZE UNDERSTANDING OF CARE AND MANAGEMENT OF ANEMIA BY END OF EPISODE. Goal Provider Goal - A PLAN OF CARE WILL BE ESTABLISHED THAT MEETS THE PATIENT S NEEDS. PATIENT WILL DEMONSTRATE OXYGEN SATURATION WITHIN NORMAL LIMITS OR PATIENT S OPTIMAL LEVEL ESTABLISHED BY THE PHYSICIAN THROUGHOUT CARE. CHANGES TO CO-MORBID CONDITIONS AND ANY NEW CONDITIONS WILL BE IDENTIFIED AND REPORTED TO THE PHYSICIAN. Goal Provider Goal - PATIENT / CAREGIVER WILL VERBALIZE/DEMONSTRATE UNDERSTANDING OF MEASURES TO MANAGE ALTERED GASTROINTESTINAL STATUS BY END OF EPISODE. Goal Provider Goal - PATIENT / CAREGIVER WILL VERBALIZE/DEMONSTRATE APPROPRIATE METHODS TO IMPROVE NUTRITIONAL STATUS BY END OF EPISODE. Goal Provider Goal - PATIENT / CAREGIVER WILL VERBALIZE / DEMONSTRATE UNDERSTANDING OF PAIN CONTROL MEASURES BY END OF EPISODE Goal Provider Goal - SIGNS OF SEPSIS WILL BE IDENTIFIED PROMPTLY, AND INTERVENTIONS INITIATED TO MINIMIZE SEVERITY AND RISK OF HOSPITALIZATION. POST-SEPSIS SYNDROME INTERVENTIONS WILL BE REVIEWED WITH THE PATIENT/CAREGIVER, IF APPLICABLE. PATIENT / CAREGIVER WILL VERBALIZE/DEMONSTRATE AN ABILITY TO ADHERE TO SELF-MANAGEMENT AT DISCHARGE BY END OF EPISODE Goal Provider Goal - PATIENT / CAREGIVER WILL VERBALIZE UNDERSTANDING OF VENOUS STASIS ULCER INCLUDING BUT NOT LIMITED TO DEFINITION, SIGNS AND SYMPTOMS OF COMPLICATIONS AND PRESCRIBED TREATMENT REGIME BY END OF EPISODE Goal Provider Goal - PATIENT / CAREGIVER WILL BE ABLE TO VERBALIZE/DEMONSTRATE APPROPRIATE COLOSTOMY/ILEOSTOMY CARE MANAGEMENT BY END OF EPISODE Goal Provider Goal - Goal Provider Goal - PATIENT / CAREGIVER WILL VERBALIZE/DEMONSTRATE UNDERSTANDING OF MEASURES TO MINIMIZE COMPLICATIONS AND REDUCE HOSPITALIZATION RELATED TO CANCER BY END OF EPISODE. Goal Provider Goal - PATIENT/CAREGIVER WILL VERBALIZE UNDERSTANDING OF SIGNS AND SYMPTOMS THAT PUT THE PATIENT AT RISK FOR HOSPITALIZATION /EMERGENCY ROOM VISITS, WHEN TO NOTIFY NURSE/PHYSICIAN OF COMPLICATIONS/DECLINE AND WHEN TO CALL 911. Goal Provider Goal - PATIENT / CAREGIVER WILL VERBALIZE/DEMONSTRATE UNDERSTANDING OF MEASURES TO MANAGE ALTERED CARDIOVASCULAR STATUS BY 06/23/25. Goal Provider Goal - PATIENT / CAREGIVER WILL VERBALIZE/DEMONSTRATE AN ABILITY TO ADHERE TO SELF-MANAGEMENT OF HF TO MINIMIZE COMPLICATIONS AND AVOID HOSPITALIZATION BY END OF EPISODE. Goal Provider Goal - CHANGES IN SKIN INTEGRITY STATUS WILL BE IDENTIFIED AND REPORTED TO THE PHYSICIAN FOR PROMPT INTERVENTION. PATIENT / CAREGIVER WILL VERBALIZE/DEMONSTRATE ADEQUATE KNOWLEDGE OF INTEGUMENTARY STATUS AND APPROPRIATE MEASURES TO PROMOTE SKIN INTEGRITY AND PREVENT INJURY BY 06/23/25 Goal Provider Goal - PATIENT/ CAREGIVER WILL BE ABLE TO VERBALIZE/DEMONSTRATE CARE TO MANAGE AND RESOLVE CELLULITIS TO MINIMIZE COMPLICATIONS AND AVOID HOSPITALIZATION BY THE END OF EPISODE. Goal Provider Goal - PATIENT/CAREGIVER WILL VERBALIZE/DEMONSTRATE ABILITY TO ADHERE TO SELF-MANAGEMENT OF HYPOTENSION TO MINIMIZE COMPLICATIONS AND AVOID HOSPITALIZATION BY THE END OF EPISODE. Goal Provider Goal - PATIENT / CAREGIVER WILL VERBALIZE/DEMONSTRATE AN ABILITY TO ADHERE TO SELF-MANAGEMENT OF HEART ARRHYTHMIA TO MINIMIZE COMPLICATIONS AND AVOID HOSPITALIZATION BY END OF EPISODE. Goal Provider Goal - PATIENT/CAREGIVER TO VERBALIZE, AND CONSISTENTLY DEMONSTRATE EFFECTIVE, SAFE MANAGEMENT OF MEDICATION INCLUDING KNOWLEDGE OF EFFECTIVENESS, POTENTIAL SIDE EFFECTS AND DRUG REACTIONS AND WHEN TO CONTACT THE APPROPRIATE CARE PROVIDER. PATIENT/CAREGIVER WILL BE ABLE TO VERBALIZE UNDERSTANDING OF MEDICATION REGIMEN AND ACCURATELY TAKE MEDICATIONS PRESCRIBED WITHOUT ADVERSE EFFECTS BY END OF EPISODE Goal Provider Goal - PATIENT / CAREGIVER WILL PROMPTLY REPORT SIGNS AND SYMPTOMS OF BLEEDING OR ADVERSE REACTIONS TO THE PHYSICIAN. PATIENT/CAREGIVER WILL VERBALIZE UNDERSTANDING OF ANTITHROMBOTIC THERAPY MANAGEMENT BY END OF EPISODE. Goal Provider Goal - PATIENT/CAREGIVER WILL VERBALIZE/DEMONSTRATE POSTOPERATIVE CARE TO MINIMIZE COMPLICATION AND AVOID HOSPITALIZATIONS BY THE END OF THE EPISODE. Progress Notes Progress Notes <paragraph>[Visit Date: 2024 by CORY MENDIOLA LPN]:</paragraph><paragraph>USP VISIT PROVIDED TODAY FOR WOUND CARE ON LOWER LEGS AND EDUCATION ON MEDICATION. PT IS COGNITIVELY IMPAIRED, AND DOES NEED ASSISTANCE TO LEAVE HOME. 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 PT WAS EDUCATED ON CHANGING DRESSINGS MORE FREQUENTLY TO HELP WOUND HEAL.PT STATES [employer] IS THE ONE WHO HELPS DO WOUNDS WHEN SN IS NOT IN HOME. WOUND DOES HAVE A LARGE AMT OF DRAINAGE AND SLOUGH TO WOUND BED TODAY. PT WAS EDUCATED ON REMEMBERING TO TAKE ABX EVERY DAY AND NOT TO SKIP DOSES. EDCUATED PT ON EATING FREQ SMALL MEALS VERSUS NOT EATING ANYTHING OR DRINKING ONE PROTEIN SHAKE FOR THE DAY. PT HAS MEALS ON WHEELS BUT STATES SHE DONT LIKE THE MEALS. ADVISED TO CONTACT HH WITH QUESTIONS OR CONCERNS.</paragraph> Encounters Start Date/Time End Date/Time Encounter Type Admission Type Attending [facility] Care Department Encounter ID Discharge Date Discharge Status Discharge Condition Discharge Reason Percent Goals Met 2025-04-25 00:00:00 2025-06-23 00:00:00 Outpatient [facility] [id number]
== END 2025-05-10 10:03 | disposition home or self-care (01) ==
PROVIDERS: PCP Family Medicine; Visit Provider Internal Medicine Hematology & Oncology
DX: C50.511 Malignant neoplasm of lower-outer quadrant of right female breast (principal); Z17.0 Estrogen receptor positive status [ER+]
CPT/HCPCS: 38505; 76942; 88305; 88342; 88360

== ENCOUNTER 2025-05-24 00:06 | Day surgery (SDC) | payer MEDICARE, MEDICAID, SELFPAY ==
[2025-05-23 10:35] VITALS: BMI 20.9
--- NOTE | ~2025-05-24 | BM_ITS ---
EXAMINATION: CCL bone marrow asp w bx diag ORDER COMPLETED DATE: 05/24/2025 10:17 INDICATION: Chronic anemia TECHNIQUE: A time-out was performed to verify the patient's name, date of , and procedure to be performed. The procedure including the risks and benefits was discussed with the patient. Risks discussed included bleeding, infection, nerve injury and allergic reaction. The patient understood the risks and agreed to proceed. The skin overlying the left posterior iliac spine was prepped and draped in usual sterile fashion. Anesthetic was administered with 1% lidocaine subcutaneously. Moderate conscious sedation was achieved with 100 mcg fentanyl IV and 1 mg of Versed IV. An 11 gauge needle was inserted into the left ilium with fluoroscopic guidance. Bone marrow was aspirated. An 8 gauge needle was then inserted into the left ilium with fluoroscopic guidance. A core bone marrow biopsy was obtained. The needle was removed and the entry site was cleaned and dressed. There were no immediate complications. A total of 204 fluoroscopic images were recorded. Fluoroscopy exposure time was 0.5 minutes. Total DAP was 1286 mGycm^2. FINDINGS: Real-time fluoroscopy demonstrates the biopsy needle tip overlying the left posterior iliac spine. IMPRESSION: 1. Successful fluoroscopic guided bone marrow aspiration. 2. Successful fluoroscopic guided bone marrow biopsy. Reviewed, dictated and finalized at location A. NCIAL RETIREMENT PLAN SPECIALIST
--- OUTSIDE RECORDS SUMMARY | 2025-05-24 00:10 | XMS_ITS | Data Portability ---
Author Organization [place] [facility] [place] [facility] Main Office Address [address] [place] [address] Assessment Encounter Date Assessment Date Assessment LastModified [...] DO Not Attach Compendium, Do Not Delete/merge, [address] 11:49:56 Surgeries None recorded. Imaging XR, hand 2024 025 [email or web address] [facility] [place], [address], [place], [address], 13:14:47 electromyog beatris + nerve conduction study [address] ([facility]), [address], [place], [address], 12:37:00 Medication Orders bupivacaine HCl 0.5 % (5 mg/mL) injection solution [address] [facility] [facility]34, [address] [place], [place], [phone], 12:32:47 Kenalog 10 mg/mL suspension for injection [address] [place] [address] Drug Store #84739, [address] [place], [place], [phone], 12:32:47 Patient TargetsNo targets recorded. Patient InstructionsNo instructions recorded. Reason for Referral None Reported. Results Created Date Observation Date Name Description Value Unit Range Abnormal Flag Note LastModifiedBy Organization Detail LastModifiedTime 12/11/19 25 XR, hand No observ ation record ed. [email or web address] [facility] [place] [address], [place], [address], 12/10/2024 12:05:44 Result Notes None recorded. Problems Name Problem SNOMED Code Status Onset Date Resolution Date Notes Provider Name and Address Organization Details Recorded Time Pain of right hand 7143374557446 09 Active 2024 Annika Uriarte CNA null, [place] [facility] [place] [facility] 5 11:08:23 Arthritis of first carpometaca rpal joint of right hand 9492951329574 100 Active 2024 Gela baron MD [facility] 5 11:48:17 Carpal tunnel syndrome of right wrist 1818468836475 08 Active 2024 Gela baron MD [facility]ion Diya [facility] 11:48:33 Problem Notes None recorded. Procedures Surgical History Date Name Laterality Status Provider Name and Address Organization Details Recorded Time 1 Brain Surgery completed Annika Uriarte CNA [facility] 12/10/2024 11:28:25 Imaging Results None recorded. [...] 10 mg by injection route. 2024 active [facility]: 0003- 0494- 20 Not Available Not Available [...] Updated DateTime 12/10/2024 180.34 cm 21.3 kg/m2 10094.63 g Annika Uriarte CNA [employer] [facility]ena 12/10/2024 11:24:31 Social History Question Answer Notes LastModified by Organizat ion Details LastModified Time Tobacco Smoking Status Former Smoker TERI Alicea [facility]ena 12/10/2024 11:28:00 When Did You Quit Smoking? [...] ICD10 Code Diagnosis IMO Codes Diagnosis Note [id number] Jared Munoz MD [facility] [place] [address] [place] [address] 12/10/2024 11:03:32 12/10/2024 12:37:00 Pain of right hand 2197315635 68632 M79.094 [id number] Arthritis of first carpometacarpal joint of right hand 9236681847 829489 M18.11 91776964 Carpal sandip dav syndrome of right wrist 3626926185 77740 G56.01 [id number] Health Concerns Section Related Observation LastModified by Organization Detai ls LastModified Time None Recorded Concern Status LastModified by Organization Details LastModified Time None Recorded Advance Directives Directive None Recorded Payers Insurance Date Sequence Insurance Name Policy Number Policy Payne Covered Member ID Payne Member ID Guarantor Name 12/10/2024 1 [place] Racquel Martha [id number] Racquel Nickerson 12/10/2024 2 [place] WHEN MEDICARE OR MEDICARE REPLACEMENT PRIMARY) Racquel M Martha [id number] Racquel Hagerwood 12/28/2024 1 [facility] (MEDICARE REPLACEMENT/AD VANTAGE - PPO) [id number] Racquel Nickerson [id number] Racquel Nickerson Notes Date Note Type Note Provider Name [...] today with the patient. TONY Barker [address] [facility], [facility] [address], [place], [address], [place] [facility] 12/10/2024 12:07:45 OBGyn Episode No OBEpisode recorded.
--- OUTSIDE RECORDS SUMMARY | 2025-05-24 00:10 | XMS_ITS | Clinical Summary ---
Author Organization [facility] Address [address] [place] [address] Care Team Providers Care Head Custodian Name Role Phone Nayely Singh MD Primary [...] Singh MD Referring Provider: Sascha Donohue MD [address] [place] [address] Other: Dr. Benita Maki MD Problem Noted Date Diagnosed Date Protein-calorie malnutrition, severe 06/15/2024 Malignant neoplasm of upper- outer quadrant of right breast in female, estrogen receptor positive 02/23/2024 Cancer Staging:Clinical stage from 02/19/2024:Stage IIIB(cT3, cN1, cM0, G3, ER+, NV-, HER2-) - Signed by Benita Maki MD on 02/23/2024 Pathologic stage from 06/14/2024: ypT2, ypN1a, cM0, G3, ER+, NV-, HER2- - Signed by Benita Maki MD on 07/02/2024 Coronary artery disease invo lving [place] coronary artery of [place] heart without angina pectoris 05/23/2023 Hyperlipidemia, unspecified 05/18/2023 Personal history of other venous thrombosis and embolism 05/18/2023 S/P IVC filter 12/25/2016 Brain aneurysm 11/25/2016 H/O colectomy 11/25/2016 History of heart artery stent 11/25/2016 History of seizures 11/25/2016 History of cerebrovascular accident 11/22/2016 History of pulmonary embolism 10/19/2016 Peripheral arterial occlusive disease 10/19/2016 Encounters Date Type Department Care Team Description 05/23/2025 Orders Only [facility] Oncology and Hematology - [place] [address] [place] [address] Sascha Donohue MD Malignant neoplasm of lower-outer quadrant of right breast of female, estrogen receptor positive (CMS/HCC) 05/20/2025 Orders Only [facility] On[facility] Hematology - [place] [address] [place] [address] Sascha Donohue MD 05/13/2025 Orders Only [facility] Oncology and Hematology - [place] [address] Sascha Donohue MD 05/11/2025 Orders Only [facility] On[facility] Hematology - [place] [address] [place] [phone] Sascha Donohue MD Acquired hemolytic anemia (CMS/HCC) (Primary Dx); Malignant neoplasm of lower-outer quadrant of right breast of female, estrogen receptor positive (CMS/HCC) 05/10/2025 Orders Only [facility] On[facility] Hematology - [place] [address] [place] [id number] Sascha Donohue MD 05/09/2025 Orders Only [facility] Oncology [facility] Hematology - [place] [address] [place] [id number] Sascha Donohue MD Malignant neoplasm of lower-outer quadrant of right breast of female, estrogen receptor positive (CMS/HCC) 05/03/2025 External Device Data STL ABSTRACTION Provider, Abstract 04/29/2025 Orders Only [facility] Oncology and Hematology - [place] [address] [place] [id number] Sascha Donohue MD 04/25/2025 Orders Only [facility] On[facility] Hematology - [place] [address] [place] [address] Sascha Donohue MD Chronic anemia; Malignant neoplasm of lower-outer quadrant of right breast of female, estrogen receptor positive (CMS/HCC) 04/22/2025 Telephone [facility] - [place] [address] [place] [address] Sascha Donohue MD [employer] [facility] 04/21/2025 4:30 PM CDT Telephone Check Up [facility] On[facility] H[facility]ology - [place] [address] [place] [id number] Sascha Donohue MD Chronic anemia (Primary Dx); Malignant neoplasm of lower-outer quadrant of right breast of female, estrogen receptor positive (CMS/HCC) 04/20/2025 External Device Data STL ABSTRACTION Provider, Abstract 04/14/2025 Orders Only [facility] Oncology and Hematology - [place] [address] Sascha Donohue MD 04/13/2025 Orders Only [facility] Oncology and Hematology - [place] [address] [place] [phone] Sascha Donohue MD 04/11/2025 Orders Only [facility] On[facility] and Hematology - [place] [address] [place] [phone] Sascha Donohue MD Malignant neoplasm of lower-outer quadrant of right breast of female, estrogen receptor positive (CMS/HCC) 04/07/2025 Orders Only [facility] Oncology and Hematology - [place] [address] [place] [address] Sascha Donohue MD 04/05/2025 Abstract [facility]ology - [place] [address] [place] [address] Sascha Donohue MD 03/28/2025 Orders Only [facility] On[facility] and Hematology - [place] [address] [place] [address] Sascha Donohue MD Malignant neoplasm of lower-outer quadrant of right breast of female, estrogen receptor positive (CMS/HCC) 03/25/2025 Orders Only [facility] On[facility] and Hematology - [place] [address] [place] [address] Sascha Donohue MD 03/24/2025 Orders Only [facility] On[facility] and Hematology - [place] [address] [place] [address] Sascha Donohue MD 03/21/2025 Orders Only [facility] Oncology and Hematology - [place] [address] [place] [phone] Sascha Donohue MD 03/17/2025 2:00 PM CDT Office Visit [facility] On[facility] Hematology - [place] [address] [place] [phone] Sascha Donohue MD Malignant neoplasm of lower-outer quadrant of right breast of female, estrogen receptor positive (CMS/HCC) (Primary Dx); Chronic anemia 03/14/2025 Orders Only [facility] Oncology and Hematology - [place] [address] [place] [id number] Sascha Donohue MD Malignant neoplasm of lower-outer quadrant of right breast of female, estrogen receptor positive (CMS/HCC) 03/11/2025 Orders Only [facility] Oncology and Hematology - [place] [address] [place] [address] Sascha Donohue MD 03/04/2025 Orders Only [facility] Oncology and Hematology - [place] [address] [place] [address] Sascha Donohue MD 03/01/2025 External Device Data STL ABSTRACTION Provider, Abstract 02/28/2025 Orders Only [facility] Oncology and Hematology - [place] [address] [place] [address] Sascha Donohue MD Malignant neoplasm of lower-outer quadrant of right breast of female, estrogen receptor positive (CMS/HCC) 02/25/2025 Orders Only [facility] On[facility] and Hematology - [place] [address] [place] [address] Sascha Donohue MD 02/24/2025 Orders Only [facility] Oncology [facility] Hematology - [place] [address] [place] [address] Sascha Donohue MD from Last 3 Months Family History Medical [...] 1 979 - 1999 Smokeless Tobacco: Never Alcohol Use Standard Drinks/Week [...] on file Legal Sex Female 5:41 AM ORGANIC CHEMISTRY PROFESSOR Gender Identity Not on file Sexual Orientation [...] 177.8 cm (5' 10) 08/06/2024 9:32 AM ORGANIC CHEMISTRY PROFESSOR Body Mass Index 22.58 08/06/2024 9:32 AM ORGANIC CHEMISTRY PROFESSOR Plan of Treatment Upcoming Encounters Date Type Department Care Team (Late st Contact Info) Description 05/31/2025 2:30 PM ORGANIC CHEMISTRY PROFESSOR Office Visit [facility] On[facility] and Hematology - [place] [address] [place] [address] Sascha Donohue MD [address] [place] [address] Health Maintenance Due Date Last Done Comments HPV/Cotest (21-) 1983 CERVICAL CANCER SCREENING 1992 HPV/Cotest (30-65) [...] 04/03/2032 04/03/2022 Medical Devices Implanted Type Area Wash Worker Device Identifier Shelf Expiration Date Model / Serial / Lot Undercover Agent Ligaclip Multi Med Msm20 - [id number] Implanted:Qty : 1 on 06/14/2024 by Benita Maki MD at [facility] Clip Right: Axilla [employer] MSM20 / / Agent Hemostat Surgicel 4x8in 2s - [id number] Implanted:Qty : 1 on 06/14/2024 by Benita Maki MD at [facility] Hemostatic Right: Breast [employer] 06/29/20282S / / [id number] Procedures Procedure Name Priority Date/Time Associated Diagnosis Comments CBC WITH AUTODIFFERENTIAL Routine 05/19/2025 7:57 AM ORGANIC CHEMISTRY PROFESSOR [facility] HEMATOLOGIC MALIGNANCY (DNA AND RNA) Routine 05/17/2025 2:41 PM ORGANIC CHEMISTRY PROFESSOR Malignant neoplasm of lower-outer quadrant of right breast of female, estrogen receptor positive (CMS/HCC) Acquired hemolytic anemia (CMS/HCC) CBC WITH AUTODIFFERENTIAL Routine 05/12/2025 7:41 AM ORGANIC CHEMISTRY PROFESSOR PATHOLOGY Routine 05/10/2025 11:09 AM ORGANIC CHEMISTRY PROFESSOR CBC WITH AUTODIFFERENTIAL Routine 05/05/2025 2:04 PM ORGANIC CHEMISTRY PROFESSOR CBC WITH AUTODIFFERENTIAL Routine 04/28/2025 11:48 AM CDT PET BONE IMG W CT SKL BSE MID THG Routine 04/14/2025 2:29 PM CDT CBC WITH AUTODIFFERENTIAL Routine 04/07/2025 12:50 PM CDT CBC WITH AUTODIFFERENTIAL Routine 03/31/2025 1:50 PM CDT CBC WITH AUTODIFFERENTIAL Routine 03/24/2025 11:03 AM CDT VITAMIN B12 LEVEL Routine 03/17/2025 12: 42 PM CDT METHYLMALONIC ACID Routine 03/17/2025 12 :24 PM CDT CBC WITH AUTODIFFERENTIAL Routine 03/17/2025 11:08 AM CDT CHG CA 15 3 Routine 03/10/2025 12:16 PM CDT COMPREHENSIVE METABOLIC PANEL Routine 03/10/2025 11:11 AM CDT CBC WITH AUTODIFFERENTIAL Routine 03/10/2025 11:08 AM CDT CBC WITH AUTODIFFERENTIAL Routine 03/03/2025 12:18 PM CDT CBC WITH AUTODIFFERENTIAL Routine 02/24/2025 3:31 PM CDT IRON, TIBC, AND PERCENT SATURATION Routine 02/24/2025 7:40 AM CDT MAMMO 3D ONEAL DIAGNOSTIC BILAT W OR WO CAD Routine 02/11/2023 12:40 PM CDT from Last 3 Months or Most Recently Relevant to Health Maintenance Results * CBC WITH AUTODIFFERENTIAL (05/19/2025 7:57 AM ORGANIC CHEMISTRY PROFESSOR) Only the most recent of11 resultswithin the time period is included. Blood Sascha Donohue MD HEMATOLOGY ORDERABLES Final Res ult * [facility] XT HEMATOLOGIC MALIGNANCY (DNA AND RNA) (05/17/2025 2:41 PM ORGANIC CHEMISTRY PROFESSOR) Pathologist [facility] [email or web address] 05/17/2025 2:41 PM ORGANIC CHEMISTRY PROFESSOR [facility] Comment:[facility] link Reason for Study To identify somatic and germline mutations relevant to patient's cancer. 05/17/2025 2:41 PM ORGANIC CHEMISTRY PROFESSOR [facility] Genetic Diseases Assessed Cancer 05/17/2025 2:41 PM ORGANIC CHEMISTRY PROFESSOR [facility] Description of Ranges of DNA Sequences Examined 648 gene panel 05/17/2025 2:41 PM ORGANIC CHEMISTRY PROFESSOR [facility] Overall Interpretation positive 05/17/2025 2:41 PM ORGANIC CHEMISTRY PROFESSOR [facility] xR Result 1 NEGATIVE Negative - This report is being issued to report the results of gene rearrangement and altered splicing analysis from RNA sequencing. No gene rearrangements nor reportable altered splicing events were identified from RNA sequencing. 05/17/2025 2:41 PM ORGANIC CHEMISTRY PROFESSOR [facility] Treatment Implications Note No reportable treatment options found. 05/17/2025 2:41 PM ORGANIC CHEMISTRY PROFESSOR [facility] Low Coverage Regions [id number] 05/17/2025 2:41 PM ORGANIC CHEMISTRY PROFESSOR [facility] Blood specimen (specimen) 05/11/2025 3:19 PM ORGANIC CHEMISTRY PROFESSOR Narrative This result has genomic variants that were not included in this document. Sascha Donohue MD MOLECULAR ORDERABLES Edited Res ult - Final [facility] [address], [address] [place] [address], [facility] [address], [address] [place] [address] * PATHOLOGY (05/10/2025 11:09 AM ORGANIC CHEMISTRY PROFESSOR) Tissue Result [facility] Sascha Donohue MD PATHOLOGY/CYTOLOGY ORDERABLES F inal Result * PET BONE IMG W CT SKB MDTH (04/14/2025 2:29 PM CDT) Anatomical Region Laterality Modality Positron Emissio n Tomography (PET) Result [facility] us Sascha Donohue MD PE ORDERABLES Final Result * VITAMIN B12 LEVEL (03/17/2025 12:42 PM CDT) Blood Result [facility] us Sascha Donohue MD CHEMISTRY ORDERABLES Final Resu lt * METHYLMALONIC ACID (03/17/2025 12:24 PM CDT) Blood Result [facility] us Sascha Donohue MD CHEMISTRY ORDERABLES Final Resu lt * CHG CA 15 3 (03/10/2025 12:16 PM CDT) Result Urmila Donohue MD CHG - LABORATORY Final Result * COMPREHENSIVE METABOLIC PANEL (03/10/2025 11:11 AM CDT) Blood Result [facility] us Sascha Donohue MD CHEMISTRY ORDERABLES Final Resu lt * IRON, TIBC, AND PERCENT SATURATION (02/24/2025 7:40 AM CDT) Blood Result [facility] us Sascha Donohue MD CHEMISTRY ORDERABLES Final Resu lt * MAMMO 3D ONEAL DIAGNOSTIC BILAT W OR WO CAD (02/11/2023 12:40 PM CDT) Anatomical Region Laterality Modality Breast Bilateral Mammography us Abstract Provider MAMMO ORDERABLES Edited Result - Final from Last 3 Months or Most Recently Relevant to Health Maintenance Insurance [place]ICA[place] [facility] DUAL COMPLETE PPO [facility] [id number] MED[place]ID [place] Advance Directives For more information, please contact: [phone] * Full Code (Latest Code Status on File) Date Activated Date Inactivated Comments 06/14/2024 3:40 PM 06/15/2024 3:17 PM * Full Code Date Activated Date Inactivated Comments 06/14/2024 7:46 AM 06/14/2024 3:40 PM Care Teams Head Custodian Relationship Specialty Start Date End Date Nayely Singh MD [address] [place] [address] PCP - General Family Practice 12/10/23
--- OUTSIDE RECORDS SUMMARY | 2025-05-24 00:10 | XMS_ITS | Data Portability ---
Author Organization [facility] [employer] [facility] and, [facility]) Address [address] [place] [address] Care Team Providers Care Billing Administrator Name Role Phone HERLINDA YA Primary Care Provider NAHID MORENO Retail Loss Prevention Officer Assessment Encounter Date Assessment Date Assessment LastModified [...] seen in the right CLIF and bilateral CUSTOM GRINDER's. TOM's and TBI's are unable to be performed due to her lower extremity foot wounds. I recommended to her today to have an angiogram performed due her persistent wounds despite vein closure procedures and no iliac vein compression previously visualized. Of note, she has made an appointment for a laundry machine tender for what appears to be possible plaque [...] limit ed No observ ation record ed. [email or web address] Not Available 2022 09:28:38 07/16/19 23 07/16/2022 US, tristan x venou s, lower extre mity, limit ed No observ ation record ed. [email or web address] Not Available 2022 09:28:51 07/24/19 23 07/12/2022 US, doppl er, arter ial No observ ation record ed. [email or web address] Not Available 07/01 15:04:19 08/29/19 23 08/26/2022 US, doppl er, venou s No observ ation record ed. [email or web address] Not Available 2022 09:20:17 08/29/19 23 08/26/2022 US, tristan x venou s, lower extre mity, limit ed No observ ation record ed. [email or web address] Not Available 2022 09:20:34 09/11/19 23 08/26/2022 US, duple x, arter ial, lower extre mity, limit ed No observ ation record ed. [email or web address] Not Available 2022 15:46:59 Result Notes None recorded. 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 Ria baron, [place] - [facility] and 12:54:46 Colostomy care Active 2020 Ria [place] [facility] and 12:54:56 Dyslipidemia 941384132 Active 2020 Ria baron[place] [facility] and 13:03:31 Cerebrovascula r accident 358466469 Active 2020 Ria baron, [place] [facility] and 13:03:39 Chest pain 11043378 Active 2020 Ria Howell null, [place] - [facility] and 13:03:46 Cough 30004844 Active 2020 Ria baron[place] [facility] and 13:03:51 Edema of lower extremity 793195286 Active 2020 Ria [place] [facility] and 13:04:03 Dizziness 850454559 Active 2020 Ria How[place] [facility] and 13:04:09 Pain of joint 97755541 Active 2020 Ria baron[place] [facility] and 13:04:17 Seizure 69604334 Active 2020 Ria [place] [facility] and 13:04:25 Fluttering heart 963328038 Active 2020 Ria Howell [place] [...] [place] [address], [address], [place] - [facility] and 09/18/2021 11:24:33 021 [place] [address], [address], [place] - [facility] and 06/19/2021 15:55:21 021 OA LE Quantiflow study completed Ria [facility]nte [facility] and 05/18/2021 13:03:57 021 [email or web address] completed Ria Dante [facility] 05/18/2021 12:56:41 Colostomy completed Ria Dante [facility] 05/21/2021 12:56:40 section completed Ria Dante Acevedo O Damion [facility] and 05/21/2021 13:05:04 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 None [email or web address] Information not available 05/21/2021 What Was The Date Of Your Most Recent Tobacco Screening? 09/18/2021 [email or web address] Information not available 09/18/2021 At What Age Did You Start Smoking Tobacco? 18 [email or web address] Information not available 07/27/2021 How Many Years Have You Smoked Tobacco? 20 [email or web address] Information not available 07/27/2021 Sex: Unknown Functional Status Question Answer Note LastModified by [facility] Details LastModified Time Do you use any illicit or recreational drugs? No [email or web address] Information not available 05/21/2021 Do you or have you ever used any other forms of tobacco or nicotine? No Information not available 05/21/2021 What is your level of alcohol consumption? None [email or web address] Information not available 05/21/2021 Mental Status None recorded. Family History Nothing Reported. Medical History Condition Response Anxiety Disorder N Varicose Veins N Anticoagulation therapy N Diabetes N Coronary Artery Disease N Bleeding Disorder Y Hyperlipidemia N Cancer N Stroke Y Asthma Y COPD N Pacemaker N Clotting Disorder Y Anemia N Neurologic Disorder N Hepatitis N Genitourinary Disease N Gastrointestinal Disease N Ulcers Y Heart Disease N Pulmonary Embolism N Deep Vein Thrombosis Y Hypertension N Kidney Disease N Gynecological HistoryNo gynecological history recorded. Obstetrics History GPAL:G 0 P 0 0 0 0 Past Encounters Encounter ID Performer Location Encounter Start Date Encounter Closed Date Diagnosis/Indication Diagnosis SNOMED-CT Code Diagnosis ICD10 Code Diagnosis IMO Codes Diagnosis Note [id number] Francisco Oh MD [facility] ) [address] [place] [address] 05/18/2021 12:31:42 05/21/2021 13:22:43 Varicose veins of lower extremity 03785755 I83.893 Primary ve nous insufficiency of lower limb 136088203 I87.2 Venous sta sis ulcer of leg 977249802 I83.009 Ischemic u lcer of lower leg due to atherosclerotic disease 4157114533 5552181 I70.248 [id number] Francisco Oh MD [facility] ( [facility] ) [address] [place] [address] 06/19/2021 10:38:59 07/11/2021 17:25:12 Ischemic ulcer of lower leg due to atherosclerotic disease 3592689903 0859644 I70.248 [id number] Francisco Oh MD [facility] [address] [place] [address] 07/27/2021 11:02:17 07/27/2021 16:33:48 Venous stasis ulcer of leg 404161863 I83.009 Ischemic u lcer of lower leg due to atherosclerotic disease 4115684187 8509867 I70.248 Edema of l ower extremity 291509219 R60.0 Varicose v eins of lower extremity 97399697 I83.893 [id number] Francisco Oh MD [facility] ( [facility] ) [address] [place] [address] 09/18/2021 08:02:29 09/25/2021 00:01:45 Obstruction of iliac vein 648019822 I87.1 [id number] Francisco Oh MD [address], [place] [address],[facility] [address] ( [place] [address] 10/01/2021 09:44:31 10/01/2021 10:30:33 Venous stasis ulcer of leg 461641118 I83.009 Varicose v eins of lower extremity 73352260 I83.893 Edema of l ower extremity 263454412 R60.0 [id number] Francisco Oh MD [facility] ( [facility] [address] [place] [address] [place] [address] 02/13/2022 13:49:29 02/13/2022 14:54:48 Varicose veins of lower extremity 34351218 I83.893 Edema of l ower extremity 797256643 R60.0 [id number] Francisco Oh MD [facility] ( [facility] [address] [place] [address] [place] [address] 02/27/2022 13:05:38 02/27/2022 15:13:04 Varicose veins of lower extremity 54526583 I83.893 Edema of l ower extremity 672686743 R60.0 Venous ulc er of lower extremity due to chronic peripheral venous hypertension 9308634371 22062 I87.319 [id number] Francisco Oh MD [facility] [address] [place] [address] 03/15/2022 09:42:53 03/20/2022 09:59:02 Varicose veins of lower extremity 08837394 I83.893 [id number] Francisco Oh MD [facility] [address] [facility], [place] [address],[facility] [address] ( [place] [address] 03/18/2022 14:11:00 03/18/2022 14:38:41 Varicose veins of lower extremity 01762453 I83.893 Venous sta sis ulcer of leg 254452264 I83.013 [id number] Francisco Oh MD [facility] [address] [place] [address] [place] [address] 03/27/2022 09:29:51 03/27/2022 13:40:43 Varicose veins of lower extremity 50877237 I83.893 Venous sta sis ulcer of leg 886471203 I83.013 Cellulitis of right lower limb 5927000611 3849361 L03.115 She will be seen next door by her primary care team for further management (culture and antibiotic s). [id number] Francisco Oh MD [facility] ( [place] ) [address] [place] [address] [place] [address] 05/08/2022 10:10:48 05/08/2022 14:21:27 Venous stasis ulcer of leg 954422589 I83.023 Varicose v eins of lower extremity 77463760 I83.893 Edema of l ower extremity 358748751 R60.0 [id number] Francisco Oh MD [facility] ( [place] ) [address] [place] [address] [place] [address] 05/22/2022 11:16:14 05/22/2022 14:10:54 Varicose veins of lower extremity 67402318 I83.893 Venous sta sis ulcer of leg 097989168 I83.023 [id number] Francisco Oh MD [facility] ( [place] ) [address] [place] [address] [place] [address] 06/19/2022 12:13:38 06/19/2022 13:34:58 Varicose veins of lower extremity 91147825 I83.893 Edema of l ower extremity 402786143 R60.0 Bilateral lower limb pain at rest due to atherosclerosis 4095304343 0014276 I70.223 Ischemic u lcer of lower leg due to atherosclerotic disease 7210118595 9959416 I70.90 Venous sta sis ulcer of leg 576040841 I83.013 Plaque psoriasis 09 L40.0 (pending diagnosis) [id number] Francisco Oh MD [facility] ( [place] ) [address] [place] [address] [place] [address] 07/12/2022 09:40:42 07/17/2022 16:33:08 Pre-surgery testing 589357006 Z01.89 Venous sta sis ulcer co-occurrent with edema of lower leg 4317191764 9100 I83.009 Ischemic u lcer of lower leg due to atherosclerotic disease 8646693727 7972946 I70.238 I70.248 Bilateral lower limb pain at rest due to atherosclerosis 3028844461 5764225 I70.223 Edema of l ower extremity 205764718 R60.0 Varicose v eins of lower extremity 25239134 I83.893 [id number] MD CECILIA Wilson D [address] [address] 07/12/2022 09:50:11 07/15/2022 16:18:16 Ischemic ulcer of lower leg due to atherosclerotic disease 7245702096 5215725 I70.238 I70.248 Venous sta sis ulcer co-occurrent with edema of lower leg 6618001094 9100 I83.009 [id number] Francisco Oh MD [facility] [address] [address] 08/26/2022 15:22:21 08/27/2022 10:06:36 Spontaneous ecchymosis 186920149 R23.3 Ischemic u lcer of lower leg due to atherosclerotic disease 9173004991 9759723 I70.248 Varicose v eins of lower extremity 99058119 I83.893 [id number] MD [place] D [address] [address] 08/26/2022 17:36:07 08/27/2022 10:09:53 Spontaneous ecchymosis 317526223 R23.3 Ischemic u lcer of lower leg due to atherosclerotic disease 0105948900 2553127 I70.248 Health Concerns Section Related Observation LastModified by Organization Priscilla ls LastModified Time None Recorded Concern Status LastModified by Organization Details LastModified Time None Recorded Advance Directives Directive None Recorded Payers Insurance Date Sequence Insurance Name Policy Number Policy Payne Covered Member ID Payne Member ID Guarantor Name 04/24/2022 1 [employer] (MEDICARE REPLACEMENT/A DVANTAGE - HMO) [place] [id number] [place] 04/24/2022 2 [place] [id number] Rac[place] 08/31/2022 1 [place] Racquel [place] [id number] Racquel Martha 01/08/[address] [facility] MEDICARE ADVANT[place] [id number] Rac[place] [id number] Racquel Martha 06/16/2022 2 [employer] (MEDICARE REPLACEMENT/A DVANTAGE - HMO) [id number] Racquel Martha [id number] Racquel Martha 11/15/2024 2 [place] [facility] Racquel Thomas [id number] Racquel Martha 05/08/2022 3 [employer] (HMO) [id number] [place] [id number] Racquel Martha 07/12/2022 1 [employer] (HMO) [id number] [place] [id number] Racquel [place] 08/31/2022 1 [place] B[place] Racquel [place] [id number] Racquel Martha 02/28/2023 1 [employer] (MEDICARE REPLACEMENT/A DVANTAGE - PPO) [id number] Racquel Martha [id number] Racquel Martha 11/15/2024 1 [facility] (MEDICARE REPLACEMENT/A DVANTAGE - HMO) [place] [id number] Racquel Martha 11/15/2024 1 [facility] (MEDICARE REPLACEMENT/A DVANTAGE - PPO) [id number] Racquel [place] [id number] Racquel Martha Notes Date Note Type Note [...] frequently. Angella baron, [facility] and 06/19/2022 13:26:16 07/12/2022 text/html 61-year-old with a history of severe venous insufficiency status post vein closures being seen for post vein treatment ultrasound and arterial ultrasound due to non-healing wounds. JHONNY ALDRICH, REPLANTING MACHINE OPERATOR [address] [address], [place], [address], [facility] and 07/17/2022 16:31:40 08/26/2022 text/html [...] walking into a wooden chair. Angella baron, [facility] and 08/26/2022 17:11:28 OBGyn Episode No OBEpisode recorded.
--- OUTSIDE RECORDS SUMMARY | 2025-05-24 00:10 | XMS_ITS | Clinical Summary ---
Author Organization [facility] at the [facility] Office Center Address [address] [place] [address] Care Team Providers Care Product Safety Test Engineer Name Role Phone Susan Ayala DO Primary Care Provider Allergies Active Allergy Reactions Criticality Noted Date Comments No Known Allergies Other (See comments) Low 019 Reaction: Medications rivaroxaban (Xarelto) 20 mg tablet Take 1 tablet (20 mg total) by mouth daily with dinner 30 tablet 3 Active tamoxifen (NOLVADEX) 20 mg tablet Take 1 tablet (20 mg total) by mouth daily 5 Active methadone (DOLOPHINE) 10 mg tablet Take 1 tablet by mouth 2 (two) times a day Active bismuth tribrom-petrola savannah,wh (Xeroform) 5 X 9 bandage Apply 1 Units topically daily 30 each 2 5 Active potassium chloride (KAYCIEL) solution 20 mEq/15 mL Take 15 mL (20 mEq total) by mouth daily Active montelukast (SINGULAIR) 10 mg tablet Take 1 tablet (10 mg total) by mouth nightly Active oxyCODONE (ROXICODONE) 30 mg immediate release tablet Take 1 tablet (30 mg total) by mouth 2 (two) times a day as needed for pain Active doxycycline (VIBRAMYCIN) 100 mg capsule Take 1 tablet/capsule (100 mg total) by mouth 2 (two) times a day for 7 days 14 tablet/capsul e 5 04/28/20 25 ciprofloxacin (CIPRO) 500 mg tablet Take 1 tablet (500 mg total) by mouth 2 (two) times a day for 7 days 14 tablet 04/28/20 25 Active Problems Problem Noted Date Diagnosed Date Sepsis, due to unspecified o rganism, unspecified whether acute organ dysfunction present 04/14/2025 Gangrene 04/07/2025 Hypotension 01/29/2025 Venous ulcer 01/28/2025 Lower extremity ulceration, left, with fat layer exposed 01/27/2025 Ulcer with gangrene 01/27/2025 Encounter for ostomy nurse consultation 08/22/19 Coronary artery disease invo lving mi[place] coronary artery of [place] heart without angina pectoris 05/23/2023 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) 05/19/2023 Hyperlipidemia, unspecified 05/18/2023 Peripheral vascular disease 05/18/2023 Pulmonary embolism 05/18/2023 At high risk for malnutrition 04/24/2023 Assessment & Plan (05/17/2023 2:11 PM FLAT SORTING MACHINE CLERK): 04/24 advanced to regular diet yesterday, low [...] 04/22/2023 Assessment & Plan (05/17/2023 2:12 PM FLAT SORTING MACHINE CLERK): 04/22 Reportedly patient presented to OSH from home, baseline function is relatively independent with spousal support and walker vs cane for mobility, case management investigating, anticipate some type of placement when medically stable, PT/OT ordered 04/23 PT recs for inpatient rehab, keycase assembler notified, ADD 04/25 04/24 patient agreeable to short term IPR placement in [place], [place] area -- case management aware, MAKAYLA gomez denied [facility] for medical reasons, [facility], [facility]25 --- additional discussions with [...] medical conditions F/u prior vascular surgeon for fpc evaluation of 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 F/u [facility] for wound check and staple removal Acute pain 04/22/2023 Assessment & Plan (05/17/2023 2:13 PM FLAT SORTING MACHINE CLERK): 04/22 pain controlled with lidoderm patches and dilaudid IV PRN, passed DIGITAL MEASUREMENT ADVISOR eval today, liberalize to oral multimodal regimen [...] 04/22/2023 Assessment & Plan (05/05/2023 10:42 AM FLAT SORTING MACHINE CLERK): Patient reports symptoms controlled with CBD gummies - low threshold for marinol - zofran, compazine PRN 04/23 start marinol scheduled 04/24 symptoms controlled 04/27-present: No complaints of nausea. ABLA (acute blood loss anemia) 04/22/2023 Assessment & Plan (05/10/2023 12:25 PM FLAT SORTING MACHINE CLERK): 04/22 hgb dropped post-op likely dilutional + [...] bedside swallow in ICU - 04/22 passed DIGITAL MEASUREMENT ADVISOR eval for reg/thin, assist with feeds iso [...] Incidental finding on OSH CT 04/18 -f/u REAL ESTATE DIRECTOR vs PCP for outpatient mammography Strangulated ventral hernia 04/19/2023 Assessment & Plan (04/19/2023 7:44 AM CDT): See small bowel obstruction Small bowel obstruction 04/18/2023 Assessment & Plan (05/17/2023 2:11 PM FLAT SORTING MACHINE CLERK): 04/[address] A/P: 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 SBO r/t parastomal hernia incarceration. --- transferred to [facility] for higher level of care 04/19 OR [...] renal function, somewhat confused. Can transfer to 04/22 POD3: AFVSS, TTF overnight, wbc 8 [...] inpatient due to risk for evisceration 05/05-05/06 OAY14-22 AFVSS, wbc 4 from 4, abx: none, [...] follow up in the Wound Clinic at [facility] for further evaluation and treatment. Follow up in the next couple of weeks with a venous reflux electric switch tester study Ulcer of left lower extremity, limited to breakd own of skin 11/17/2018 Assessment & Plan (01/05/2025 11:34 AM CDT): Continue daily dressing changes to the ulceration with Xeroform Kerlix and Sander wrap. Also referring to the wound clinic and [facility] for further evaluation and management follow-up in the next couple of weeks with a venous reflux and electric switch tester study. S/P IVC filter 12/25/2016 Venous insufficiency of leg 12/12/2016 Assessment & Plan (02/03/2025 1:39 PM CDT): Patient left the hospital AMA after recently undergoing surgical debridement of bilateral ankles. Patient was awaiting disposition from [place] stating she had been told that she [...] who ultimately would be a candidate for electric switch tester vein ligation to both lower extremities however [...] 10/19/2016 Assessment & Plan (05/16/2023 10:06 AM FLAT SORTING MACHINE CLERK): DVT (2012, on Xarelto, IVC filter) -Last [...] Encounters Date Type Department Care Team Description 05/19/2025 11:30 AM FLAT SORTING MACHINE CLERK Orders Only [facility] Office Building 2 Wound Care [address] [place] [address] 05/05/2025 11:15 AM FLAT SORTING MACHINE CLERK Orders Only [facility] Building 2 Wound Care [address] [place] [address] [address] [place] [address] 04/20/2025 1:22 PM CDT Anesthesia Event [facility] OR [address] [place] [address] Vickie Nair MD Taylor-White, Carlotta A., NP 04/20/2025 12:46 PM CDT - 04/20/2025 2:26 PM CDT Surgery [facility] OR [address] [place] [address] José Luis Jiménez MD BILATERAL LOWER EXTREMITY DEBRIDEMENT 04/14/2025 2:38 PM CDT - 04/21/2025 12:49 PM CDT Hospital Encounter [facility] [address] [place] [address] Jude Schroeder MD Al Furgani, Mahmud Mustafa, [...] care 04/14/2025 10:30 AM CDT Pre-Admission Testing [facility] PreAdmission Testing [facility] [place] [address] Pre-op testing (Primary Dx); Gangrene (HCC) 04/14/2025 8:26 AM CDT - 04/14/2025 11:59 PM CDT Hospital Encounter [facility] Medical Office Building [address] [place] [address] Malignant neoplasm of lower-outer quadrant of right female breast, unspecified estrogen receptor status (HCC); Estrogen receptor positive status (ER+) Discharge Disposition: Discharge to home or self care 04/12/2025 Orders Only [facility] PreAdmission Testing [address] [place] [address] Awilda Kennedy RN 04/07/2025 10:45 AM CDT Orders Only [facility] Medical Office Building 2 Wound Care [address] [facility] [address] [place] [address] 04/07/2025 Telephone [facility] Vascular [facility] Vein Surgery [address] [facility] [address] [place] [address] José Luis Jiménez MD 03/22/2025 2:30 PM CDT Orders Only [facility] Office Building 2 Wound Care [address] [place] [address] 03/08/2025 3:30 PM CDT Orders Only [facility] Office Building 2 Wound Care [address] [facility] [address] [place] [address] from Last 3 Months Surgical History Surgery [...] time Gangrene (HCC) CVA (cerebral vascular accident) (HCC) unable to use left arm Wears glasses [...] often do you attend chur ch or sikh services? Never 01/28/2025 Do you belong to any clubs o r organizations such as pentecostalism groups, unions, fraternal or athletic groups, or [...] any time in the past 12 m [facility], were you homeless or living in a half-way (including now)? No 01/28/2025 Social Connection and Isolation Panel Answer Date Recorded In a typical week, how many times do you talk on the phone with family, friends, or neighbors? Patient declined 04/15/2025 How often do you get togethe r with friends or relatives? Patient declined 04/15/2025 How often do you attend pentecostalism or sikh serv ices? Patient declined 04/15/2025 Do you belong to any clubs o r organizations such as pentecostalism groups, unions, fraternal or athletic groups, or [...] or rent on time? Patient declined 04/15/20 Number of Times Moved in the Last Year Not on fi le 04/15/2025 At any time in the past 12 m [facility], were you homeless or living in a half-way (including now)? Patient declined 04/15/2025 [facility] Utilities Answer Date Recorded In the past 12 months has [email or web address], gas, oil, or water company threatened to shut off services in your home? Patient declined 04/15/2025 Personal Safety Answer Date Recorded Have you ever been in or are you currently in a harmful physical or emotional relationship or is someone making you feel afraid or unsafe? Denies 04/14/2025 Comments No Sex and Gender Information Value Date Recorded Sex Assigned at Not on file Legal Sex Female 4:26 AM FLAT SORTING MACHINE CLERK Gender Identity Not on file Sexual Orientation [...] history exists Medical Devices Implanted Type Area School Physical Therapist Device Identifier Shelf Expiration Date Model / Serial / Lot [employer] Seprafilm 6x5in Barrier Adhesion Sterile Disposable Latex Free [id number] - [id number] Implanted:Qty : 1 on 04/19/2023 by Abran Cardenas DO at [facility] Other - see comments N/A: Abdomen [employer] [id number] 04/25/2024 [id number] / / [id number] [employer] Sepra[employer] 6x5in Barrier Adhesion Sterile Disposable Latex Free [id number] - [id number] Implanted:Qty : 1 on 04/19/2023 by Abran Cardenas DO at [facility] Other - see comments N/A: Abdomen [employer] [id number] 03/27/2024 [id number] / / [id number] Procedures Procedure Name Priority Date/Time Associated [...] GRAM STAIN Routine 04/20/2025 1:56 PM CDT CO AN PROCEDURE PLACEHOLDER Routine 04/20/2025 1:42 PM CDT CO AN ELECTIVE ENDOTRACHEAL AIRWAY Routine 04/20/2025 1:42 [...] BLOOD, FECAL (FIT) Routine 08/26/2013 6:00 AM FLAT SORTING MACHINE CLERK FLEXIBLE SIGMOIDOSCOPY REPORT 07/17/2012 from Last 3 Months or Most Recently Relevant to Health Maintenance Results * (ABNORMAL) Blood smear review (04/21/2025 6:34 AM CDT) Pathologist [facility] RBC morphology Present(A) Anisocytosis Slight(A) KATHIE FOY Macrocytes 3-7/HPF(A) KATHIE FOY Platelet estimate Automated Count Confirmed KATHIE FOY Blood 04/21/2025 6:34 AM CDT 04/21/2025 6:38 AM CDT us Justin Pantoja MD LAB BLOOD ORDERABLES Fin al Result KATHIE FOY [address] Department [place] [address] * eGFR (04/21/2025 6:34 AM CDT) Pathologist [facility] eGFR >90 >=60 mL/min/1. 73 m2 Comment: [...] of Race in Diagnosing Kidney Disease, JASN 202). The CKD-EPI equation should not be used for patients with unstable renal function and has not been validated in children and those over 70. Current interpretive data was last reviewed 2021. Blood 04/21/2025 6:34 AM CDT 04/21/2025 6:38 AM CDT Justin Pantoja MD LAB BLOOD ORDERABLES Fin al Result [facility] [address] Department [place] [address] * (ABNORMAL) Differential, auto (04/21/2025 6:34 AM CDT) Pathologist [facility] Neutrophil abs 3.65 1.50 - 6.50 K/cumm Imm gran abs 0.01 0.00 - 0.10 K/cumm [facility] Lymphocyte abs 0.39(L) 0.80 - 3.30 K/cumm [facility] Monocyte abs 0.24 0.20 - 0.80 K/cumm [facility] Eosinophil abs 0.00 0.00 - 0.50 K/cumm [facility] Basophil abs 0.01 0.00 - 0.10 K/cumm [facility] Neutrophil pct 84.9 % [facility] Comment: Interpretive Data Percent cell count reference ranges are not reported, since discordance with absolute values may lead to misinterpretation of CBC data. Current Interpretive Data was last revised on 2017. Imm gran pct 0.2 % [facility] Comment: Interpretive Data Percent cell count reference ranges are not reported, since discordance with absolute values may lead to misinterpretation of CBC data. Current Interpretive Data was last revised on 2017. Lymphocyte pct 9.1 % [facility] Comment: Interpretive Data Percent cell count reference ranges are not reported, since discordance with absolute values may lead to misinterpretation of CBC data. Current Interpretive Data was last revised on 2017. Monocyte pct 5.6 % [facility] Comment: Interpretive Data Percent cell count reference ranges are not reported, since discordance with absolute values may lead to misinterpretation of CBC data. Current Interpretive Data was last revised on 2017. Eosinophil pct 0.0 % [facility] Comment: Interpretive Data Percent cell count reference ranges are not reported, since discordance with absolute values may lead to misinterpretation of CBC data. Current Interpretive Data was last revised on 2017. Basophil pct 0.2 % [facility] Comment: Interpretive Data Percent cell count reference ranges are not reported, since discordance with absolute values may lead to misinterpretation of CBC data. Current Interpretive Data was last revised on 2017. Blood 04/21/2025 6:34 AM CDT 04/21/2025 6:38 AM CDT Justin Pantoja MD LAB BLOOD ORDERABLES Fin al Result [facility] [address] Department of Laboratories [place], [place] [id number] * (ABNORMAL) CBC with auto differential (04/21/2025 6:34 AM CDT) Pathologist [facility] WBC 4.30 3.80 - 9.90 K/cumm Hgb 8.4(L) 11.9 - 15.5 g/dL [facility] Hct 27.1(L) 35.6 - 45.5 % [facility] Plt 123(L) 150 - 400 K/cumm [facility] MPV 12.2 9.1 - 12.3 fL [facility] RBC 2.37(L) 3.90 - 5.20 M/cumm [facility] MCV 114.3(H) 81.3 - 96.4 fL [facility] MCH 35.4(H) 27.1 - 33.3 pg [facility] MCHC 31.0(L) 32.3 - 35.7 g/dL [facility] RDW CV 21.8(H) 11.1 - 14.9 % [facility] RDW SD 90.5(H) 35.7 - 48.1 fL [facility] NRBC abs 0.00 0.00 - 0.01 K/cumm [facility] Blood 04/21/2025 6:34 AM CDT 04/21/2025 6:38 AM CDT Jusitn Pantoja MD LAB BLOOD ORDERABLES Bandar alcides Result - Final [facility] [address] Department [place] [address] * (ABNORMAL) Basic metabolic panel (04/21/2025 6:34 AM CDT) Sodium 138 135 - 145 mmol/L Potassium, pl 4.6 3.3 - 4.9 mmol/L [facility] Comment:Hemolyzed; Potassium value may be falsely elevated by as much as 1.0 mmol/L. Suggest redraw and reanalysis. Chloride 111(H) 97 - 110 mmol/L [facility] CO2 24 22 - 32 mmol/L [facility] Anion gap 3 2 - 15 mmol/L [facility] BUN 11 6 - 25 mg/dL [facility] Creatinine 0.59(L) 0.60 - 1.10 mg/dL [facility] Glucose 137 70 - 199 mg/dL [facility] Comment: Interpretive Data Fasting glucose [...] 2022. Calcium 9.1 8.5 - 10.3 mg/dL [facility] Blood 04/21/2025 6:34 AM CDT 04/21/2025 6:38 AM CDT Justin Pantoja MD LAB BLOOD ORDERABLES Fin al Result Performing Organization Address City/[facility] Co de Phone Number [address] [place] [address] * eGFR (04/21/2025 5:04 AM CDT) Pathologist [facility] eGFR >90 >=60 mL/min/1. 73 m2 Comment: [...] of Race in Diagnosing Kidney Disease, JASN 202). The CKD-EPI equation should not be used for patients with unstable renal function and has not been validated in children and those over 70. Current interpretive data was last reviewed 2021. Blood 04/21/2025 5:04 AM CDT 04/21/2025 5:28 AM CDT Ludwig Anne MD LAB BLOOD ORDERABLES Final R esult Performing Organization Address City/[facility] [address]/ZIP Co de Phone Number [address] Department [place] [address] * (ABNORMAL) Differential, auto (04/21/2025 5:04 AM CDT) Neutrophil abs 3.06 1.50 - 6.50 K/cumm Imm gran abs 0.01 0.00 - 0.10 K/cumm [facility] Lymphocyte abs 0.35(L) 0.80 - 3.30 K/cumm [facility] Monocyte abs 0.18(L) 0.20 - 0.80 K/cumm [facility] Eosinophil abs 0.00 0.00 - 0.50 K/cumm [facility] Basophil abs 0.01 0.00 - 0.10 K/cumm [facility] Neutrophil pct 84.7 % [facility] Comment: Interpretive Data Percent cell count reference ranges are not reported, since discordance with absolute values may lead to misinterpretation of CBC data. Current Interpretive Data was last revised on 2017. Imm gran pct 0.3 % [facility] Comment: Interpretive Data Percent cell count reference ranges are not reported, since discordance with absolute values may lead to misinterpretation of CBC data. Current Interpretive Data was last revised on 2017. Lymphocyte pct 9.7 % [facility] Comment: Interpretive Data Percent cell count reference ranges are not reported, since discordance with absolute values may lead to misinterpretation of CBC data. Current Interpretive Data was last revised on 2017. Monocyte pct 5.0 % [facility] Comment: Interpretive Data Percent cell count reference ranges are not reported, since discordance with absolute values may lead to misinterpretation of CBC data. Current Interpretive Data was last revised on 2017. Eosinophil pct 0.0 % [facility] Comment: Interpretive Data Percent cell count reference ranges are not reported, since discordance with absolute values may lead to misinterpretation of CBC data. Current Interpretive Data was last revised on 2017. Basophil pct 0.3 % [facility] Comment: Interpretive Data Percent cell count reference ranges are not reported, since discordance with absolute values may lead to misinterpretation of CBC data. Current Interpretive Data was last revised on 2017. Blood 04/21/2025 5:04 AM CDT 04/21/2025 5:28 AM CDT Ludwig Anne MD LAB BLOOD ORDERABLES Final R esult Performing Organization Address [facility] [address] [facility] de Phone Number KATHIE [facility] [place] [address] * (ABNORMAL) CBC with auto differential (04/21/2025 5:04 AM CDT) [facility] WBC 3.61(L) 3.80 - 9.90 K/cumm Hgb 8.6(L) 11.9 - 15.5 g/dL [facility] Hct 27.5(L) 35.6 - 45.5 % [facility] Plt 146(L) 150 - 400 K/cumm [facility] MPV 11.1 9.1 - 12.3 fL [facility] RBC 2.46(L) 3.90 - 5.20 M/cumm [facility] MCV 111.8(H) 81.3 - 96.4 fL [facility] MCH 35.0(H) 27.1 - 33.3 pg [facility] MCHC 31.3(L) 32.3 - 35.7 g/dL [facility] RDW CV 21.5(H) 11.1 - 14.9 % [facility] RDW SD 87.5(H) 35.7 - 48.1 fL [facility] NRBC abs 0.00 0.00 - 0.01 K/cumm [facility] Blood 04/21/2025 5:04 AM CDT 04/21/2025 5:28 AM CDT Ludwig Anne MD LAB BLOOD ORDERABLES Final R esult Performing Organization Address [facility] [address]/[facility] Co de Phone Number KATHIE [address] [facility] [place] [address] * (ABNORMAL) Basic metabolic panel (04/21/2025 5:04 AM CDT) [facility] Sodium 141 135 - 145 mmol/L Potassium, pl 3.8 3.3 - 4.9 mmol/L [facility] Chloride 112(H) 97 - 110 mmol/L [facility] CO2 26 22 - 32 mmol/L [facility] Anion gap 3 2 - 15 mmol/L [facility] BUN 10 6 - 25 mg/dL [facility] Creatinine 0.63 0.60 - 1.10 mg/dL [facility] Glucose 170 70 - 199 mg/dL [facility] Comment: Interpretive Data Fasting glucose [...] 2022. Calcium 9.2 8.5 - 10.3 mg/dL [facility] Blood 04/21/2025 5:04 AM CDT 04/21/2025 5:28 AM CDT Ludwig Anne MD LAB BLOOD ORDERABLES Final R esult Performing Organization Address City/[facility] [address]/ZIP Co de Phone Number [address] [employer] [place], [place] [id number] * ABO/Rh (04/20/2025 3:03 PM CDT) Pathologist [facility] ABO/Rh A Positive Blood 04/20/2025 3:03 PM CDT 04/20/2025 3:07 PM CDT Narrative [facility] - 04/20/2025 3:50 PM CDT Has the patient had Daratumumab or Isatuximab in the past 6 months?->Unknown José Luis Jiménez MD LAB BLOOD BANK TEST ORDERAB LES Final Result Performing Organization Address City/[facility] [address]/ZIP Co de Phone Number [address] [place] [address] * Antibody screen (04/20/2025 3:03 PM CDT) Susan, indirect, Gel Interpretation Negative ABSC Blood 04/20/2025 3:03 PM CDT 04/20/2025 3:07 PM CDT Narrative KATHIE - 04/20/2025 3:50 PM CDT Has the patient had Daratumumab or Isatuximab in the past 6 months?->Unknown José Luis Jiménez MD LAB BLOOD BANK TEST ORDERAB LES Final Result KATHIE [address] [facility] Department [place] [address] * (ABNORMAL) Tissue aerobic and anaerobic culture and gram stain Tissue Leg, left (04/20/2025 1:56 PMCDT) Direct Specimen Exam Stain: Rare polymorphonuclear leukocytes seen. Abundant Gram Positive Cocci Moderate Gram Negative Bacilli Comment:Testing performed by : [facility], [address] [place] [address]., [id number] Report Final Report: Moderate Mixed microorganisms. Includes the following: Abundant Staphylococcus aureus Methicillin resistant (MRSA) by penicillin binding protein 2a (PBP2a) testing. Moderate Alcaligenes faecalis Few Pseudomonas aeruginosa Few Pseudomonas aeruginosa #2 (.) KATHIE Comment:Testing performed by : [facility], [address] [place]., [address] Organism PSEUDOMONAS AERUGINOSA [facility] Organism STAPHYLOCOCCUS AUREUS [facility] Organism MIXED MICROORGANISMS. [facility] Organism PSEUDOMONAS AERUGINOSA [facility] Organism ALCALIGENES FAECALIS [facility] Tissue (Leg, left) 04/20/2025 1:56 PM CDT 04/20/2025 5:45 PM CDT Narrative [facility]IVER[facility] - 04/24/2025 11:37 AM CDT Left lower leg wound tissue for culture Testing performed by [facility] Microbiology Laboratory ([phone]) Specimens submitted from normally sterile body sites [...] MICROBIOLOGY - GENERAL ORDERABLES Final Result KATHIE [address] [facility] [facility] Department [place] [address] * CO AN ELECTIVE ENDOTRACHEAL AIRWAY, CO AN PROCEDURE PLACEHOLDER (04/20/2025 1:42 PM CDT) Narrative Dannie Freeman CRNA - 04/20/2025 1:42 PM CDDannie Bautista CRNA 04/20/2025 1:43 PM Airway Patient location: [place] Urgency: elective Date/time: 04/20/2025 1:36 PM Indications for airway management: anesthesia Difficult airway: no Staff: Supervising provider: Vickie Nair MD Placed by: WEB DEVELOPMENT CONSULTANT: Dannie Freeman CRNA Emergent airway documentation: Risks [...] with: silk tape Number of attempts: 1 us Vickie Nair MD ANESTHESIA ORDERABLES Final Result [...] MD LAB BLOOD ORDERABLE S Final Result [facility] [address] [facility] Department [place] [address] * (ABNORMAL) Differential, auto (04/20/2025 5:37 AM CDT) Pathologist [facility] Neutrophil abs 1.42(L) 1.50 - 6.50 K/cumm Imm gran abs 0.01 0.00 - 0.10 K/cumm [facility] Lymphocyte abs 0.43(L) 0.80 - 3.30 K/cumm [facility] Monocyte abs 0.25 0.20 - 0.80 K/cumm [facility] Eosinophil abs 0.13 0.00 - 0.50 K/cumm [facility] Basophil abs 0.02 0.00 - 0.10 K/cumm [facility] Neutrophil pct 62.8 % [facility] Comment: Interpretive Data Percent cell count reference ranges are not reported, since discordance with absolute values may lead to misinterpretation of CBC data. Current Interpretive Data was last revised on 2017. Imm gran pct 0.4 % [facility] Comment: Interpretive Data Percent cell count reference ranges are not reported, since discordance with absolute values may lead to misinterpretation of CBC data. Current Interpretive Data was last revised on 2017. Lymphocyte pct 19.0 % [facility] Comment: Interpretive Data Percent cell count reference ranges are not reported, since discordance with absolute values may lead to misinterpretation of CBC data. Current Interpretive Data was last revised on 2017. Monocyte pct 11.1 % [facility] Comment: Interpretive Data Percent cell count reference ranges are not reported, since discordance with absolute values may lead to misinterpretation of CBC data. Current Interpretive Data was last revised on 2017. Eosinophil pct 5.8 % [facility] Comment: Interpretive Data Percent cell count reference ranges are not reported, since discordance with absolute values may lead to misinterpretation of CBC data. Current Interpretive Data was last revised on 2017. Basophil pct 0.9 % [facility] Comment: Interpretive Data Percent cell count reference ranges are not reported, since discordance with absolute values may lead to misinterpretation of CBC data. Current Interpretive Data was last revised on 2017. Blood 04/20/2025 5:37 AM CDT 04/20/2025 6:29 AM CDT us Justin Pantoja MD LAB BLOOD ORDERABLES Fin al Result Performing Organization Address [facility] Co de Phone Number [place] [id number] [facility] Department [place] [address] * (ABNORMAL) CBC with auto differential (04/20/2025 5:37 AM CDT) WBC 2.26(L) 3.80 - 9.90 K/cumm Hgb 7.9(L) 11.9 - 15.5 g/dL [facility] Hct 25.5(L) 35.6 - 45.5 % [facility] Plt 145(L) 150 - 400 K/cumm [facility] MPV 11.4 9.1 - 12.3 fL [facility] RBC 2.24(L) 3.90 - 5.20 M/cumm [facility] MCV 113.8(H) 81.3 - 96.4 fL [facility] MCH 35.3(H) 27.1 - 33.3 pg [facility] MCHC 31.0(L) 32.3 - 35.7 g/dL [facility] RDW CV 22.2(H) 11.1 - 14.9 % [facility] RDW SD 90.7(H) 35.7 - 48.1 fL [facility] NRBC abs 0.00 0.00 - 0.01 K/cumm [facility] Blood 04/20/2025 5:37 AM CDT 04/20/2025 6:29 AM CDT us José Luis Jiménez MD LAB BLOOD ORDERABLES Final Result Performing Organization Address City/[facility]/ZIP Co de Phone Number KATHIE [address] [facility] Department [place] [address] * (ABNORMAL) Basic metabolic panel (04/20/2025 5:37 AM CDT) Sodium 138 135 - 145 mmol/L Potassium, pl 3.9 3.3 - 4.9 mmol/L [facility] Chloride 108 97 - 110 mmol/L [facility] CO2 25 22 - 32 mmol/L [facility] Anion gap 5 2 - 15 mmol/L [facility] BUN 7 6 - 25 mg/dL [facility] Creatinine 0.57(L) 0.60 - 1.10 mg/dL [facility] Glucose 83 70 - 199 mg/dL [facility] Comment: Interpretive Data Fasting glucose [...] 2022. Calcium 9.0 8.5 - 10.3 mg/dL [facility] Blood 04/20/2025 5:37 AM CDT 04/20/2025 6:29 AM CDT us José Luis Jiménez MD LAB BLOOD ORDERABLES Final Result KATHIE [address] [facility] Department [place] [address] * Vancomycin level trough (04/19/2025 11:26 AM CDT) Pathologist [facility] Vancomycin trough 12.6 10.0 - 20.0 mcg/mL Blood 04/19/2025 11:2 6 AM CDT 04/19/2025 11:38 AM CDT us Justin Venkataramanan MD LAB BLOOD ORDERABLES Fin al Result Performing Organization Address [facility] Co de Phone Number KATHIE [address] [address] * eGFR (04/19/2025 4:24 AM CDT) eGFR >90 >=60 mL/min/1. 73 [...] 4:24 AM CDT 04/19/2025 4:40 AM CDT Ludwig Anne MD LAB BLOOD ORDERABLES Final R esult Performing Organization Address City/[facility]/ZIP Co de Phone Number [address] [place] [address] * (ABNORMAL) Differential, auto (04/19/2025 4:24 AM CDT) Neutrophil abs 1.93 1.50 - 6.50 K/cumm Imm gran abs 0.01 0.00 - 0.10 K/cumm [facility] Lymphocyte abs 0.49(L) 0.80 - 3.30 K/cumm [facility] Monocyte abs 0.30 0.20 - 0.80 K/cumm [facility] Eosinophil abs 0.15 0.00 - 0.50 K/cumm [facility] Basophil abs 0.03 0.00 - 0.10 K/cumm [facility] Neutrophil pct 66.4 % [facility] Comment: Interpretive Data Percent cell count reference ranges are not reported, since discordance with absolute values may lead to misinterpretation of CBC data. Current Interpretive Data was last revised on 2017. Imm gran pct 0.3 % [facility] Comment: Interpretive Data Percent cell count reference ranges are not reported, since discordance with absolute values may lead to misinterpretation of CBC data. Current Interpretive Data was last revised on 2017. Lymphocyte pct 16.8 % [facility] Comment: Interpretive Data Percent cell count reference ranges are not reported, since discordance with absolute values may lead to misinterpretation of CBC data. Current Interpretive Data was last revised on 2017. Monocyte pct 10.3 % [facility] Comment: Interpretive Data Percent cell count reference ranges are not reported, since discordance with absolute values may lead to misinterpretation of CBC data. Current Interpretive Data was last revised on 2017. Eosinophil pct 5.2 % [facility] Comment: Interpretive Data Percent cell count reference ranges are not reported, since discordance with absolute values may lead to misinterpretation of CBC data. Current Interpretive Data was last revised on 2017. Basophil pct 1.0 % [facility] Comment: Interpretive Data Percent cell count reference ranges are not reported, since discordance with absolute values may lead to misinterpretation of CBC data. Current Interpretive Data was last revised on 2017. Blood 04/19/2025 4:24 AM CDT 04/19/2025 4:40 AM CDT us Justin Pantoja MD LAB BLOOD ORDERABLES Fin al Result K[place] [address] [facility] Department of Laboratories [place], [place] [id number] * (ABNORMAL) CBC with auto differential (04/19/2025 4:24 AM CDT) WBC 2.91(L) 3.80 - 9.90 K/cumm Hgb 7.7(L) 11.9 - 15.5 g/dL [facility] Hct 24.3(L) 35.6 - 45.5 % [facility] Plt 159 150 - 400 K/cumm [facility] MPV 10.9 9.1 - 12.3 fL [facility] RBC 2.15(L) 3.90 - 5.20 M/cumm [facility] MCV 113.0(H) 81.3 - 96.4 fL [facility] MCH 35.8(H) 27.1 - 33.3 pg [facility] MCHC 31.7(L) 32.3 - 35.7 g/dL [facility] RDW CV 22.0(H) 11.1 - 14.9 % [facility] RDW SD 88.8(H) 35.7 - 48.1 fL [facility] NRBC abs 0.00 0.00 - 0.01 K/cumm [facility] Blood 04/19/2025 4:24 AM CDT 04/19/2025 4:40 AM CDT us José Luis Jiménez MD LAB BLOOD ORDERABLES Final Result [facility] [address] [facility] Department of Laboratories [place], [place] [id number] * (ABNORMAL) Comprehensive metabolic panel (04/19/2025 4:24 AM CDT) Sodium 138 135 - 145 mmol/L Potassium, pl 3.6 3.3 - 4.9 mmol/L [facility] Chloride 109 97 - 110 mmol/L [facility] CO2 23 22 - 32 mmol/L [facility] Anion gap 6 2 - 15 mmol/L [facility] BUN 6 6 - 25 mg/dL [facility] Creatinine 0.53(L) 0.60 - 1.10 mg/dL [facility] Glucose 80 70 - 199 mg/dL [facility] Comment: Interpretive Data Fasting glucose [...] 2022. Calcium 9.0 8.5 - 10.3 mg/dL [facility] Bilirubin, total 0.9 0.1 - 1.2 mg/dL [facility] Protein, pl 6.1(L) 6.5 - 8.5 g/dL [facility] Albumin 2.5(L) 3.5 - 5.0 g/dL [facility] Alk phos 89 40 - 130 Units/L [facility] ALT 6(L) 7 - 45 Units/L [facility] AST 32 10 - 45 Units/L [facility] Blood 04/19/2025 4:24 AM CDT 04/19/2025 4:40 AM CDT Ludwig Anne MD LAB BLOOD ORDERABLES Final R esult K[facility]IE [address] [facility] Department of Laboratories [place], [place] [id number] * eGFR (04/18/2025 5:33 AM CDT) eGFR [...] MD LAB BLOOD ORDERABLE S Final Result [facility] [address] [facility] Department [place] [address] * (ABNORMAL) Differential, auto (04/18/2025 5:33 AM CDT) Neutrophil abs 2.65 1.50 - 6.50 K/cumm Imm gran abs 0.01 0.00 - 0.10 K/cumm [facility] Lymphocyte abs 0.48(L) 0.80 - 3.30 K/cumm [facility] Monocyte abs 0.32 0.20 - 0.80 K/cumm [facility] Eosinophil abs 0.17 0.00 - 0.50 K/cumm [facility] Basophil abs 0.04 0.00 - 0.10 K/cumm [facility] Neutrophil pct 72.2 % [facility] Comment: Interpretive Data Percent cell count reference ranges are not reported, since discordance with absolute values may lead to misinterpretation of CBC data. Current Interpretive Data was last revised on 2017. Imm gran pct 0.3 % [facility] Comment: Interpretive Data Percent cell count reference ranges are not reported, since discordance with absolute values may lead to misinterpretation of CBC data. Current Interpretive Data was last revised on 2017. Lymphocyte pct 13.1 % [facility] Comment: Interpretive Data Percent cell count reference ranges are not reported, since discordance with absolute values may lead to misinterpretation of CBC data. Current Interpretive Data was last revised on 2017. Monocyte pct 8.7 % [facility] Comment: Interpretive Data Percent cell count reference ranges are not reported, since discordance with absolute values may lead to misinterpretation of CBC data. Current Interpretive Data was last revised on 2017. Eosinophil pct 4.6 % [facility] Comment: Interpretive Data Percent cell count reference ranges are not reported, since discordance with absolute values may lead to misinterpretation of CBC data. Current Interpretive Data was last revised on 2017. Basophil pct 1.1 % [facility] Comment: Interpretive Data Percent cell count reference ranges are not reported, since discordance with absolute values may lead to misinterpretation of CBC data. Current Interpretive Data was last revised on 2017. Blood 04/18/2025 5:33 AM CDT 04/18/2025 6:37 AM CDT Justin Pantoja MD LAB BLOOD ORDERABLES Fin al Result [place] [id number] [facility] Department [place] [address] * (ABNORMAL) CBC with auto differential (04/18/2025 5:33 AM CDT) WBC 3.67(L) 3.80 - 9.90 K/cumm Hgb 7.8(L) 11.9 - 15.5 g/dL [facility] Hct 25.5(L) 35.6 - 45.5 % [facility] Plt 166 150 - 400 K/cumm [facility] MPV 11.1 9.1 - 12.3 fL [facility] RBC 2.25(L) 3.90 - 5.20 M/cumm [facility] MCV 113.3(H) 81.3 - 96.4 fL [facility] MCH 34.7(H) 27.1 - 33.3 pg [facility] MCHC 30.6(L) 32.3 - 35.7 g/dL [facility] RDW CV 22.3(H) 11.1 - 14.9 % [facility] RDW SD 91.0(H) 35.7 - 48.1 fL [facility] NRBC abs 0.00 0.00 - 0.01 K/cumm [facility] Blood 04/18/2025 5:33 AM CDT 04/18/2025 6:37 AM CDT us José Luis Jiménez MD LAB BLOOD ORDERABLES Final Result KATHIE [address] [place] [address] * (ABNORMAL) Basic metabolic panel (04/18/2025 5:33 AM CDT) Pathologist [facility] Sodium 139 135 - 145 mmol/L Potassium, pl 3.7 3.3 - 4.9 mmol/L [facility] Chloride 110 97 - 110 mmol/L [facility] CO2 24 22 - 32 mmol/L [facility] Anion gap 5 2 - 15 mmol/L [facility] BUN 6 6 - 25 mg/dL [facility] Creatinine 0.54(L) 0.60 - 1.10 mg/dL [facility] Glucose 84 70 - 199 mg/dL [facility] Comment: Interpretive Data Fasting glucose [...] 2022. Calcium 8.9 8.5 - 10.3 mg/dL [facility] Blood 04/18/2025 5:33 AM CDT 04/18/2025 6:37 AM CDT José Luis Jiménez MD LAB BLOOD ORDERABLES Final Result KATHIE [address] [place] [address] [place] [address] * Vancomycin level trough (04/17/2025 11:01 AM CDT) Pathologist [facility] Vancomycin trough 13.0 10.0 - 20.0 mcg/mL Blood 04/17/2025 11:0 1 AM CDT 04/17/2025 11:05 AM CDT Jonh Galvez MD LAB BLOOD ORDERABLE S Final Result Performing Organization Address [facility] Co de Phone Number KATHIE [address] [place] [address] * eGFR (04/17/2025 5:25 AM CDT) eGFR [...] ORDERABLE S Final Result Performing Organization Address City/[facility] Co de Phone Number KATHIE [address] [place] [address] * Methylmalonic acid, serum (04/17/2025 5:25 AM CDT) MMA 0.15 <=0.40 nmol/mL [facility] Comment: ADDITIONAL INFORMATION This test was developed and its performance characteristics determined by [facility] in a manner consistent with CLIA requirements. This test has not been cleared or approved by the U.S. Food and Drug Administration. Test Performed by: [facility] - [address] [address] Social Media Manager: Janie Betancourt Ph.D.; CLIA# [id number] Blood 04/17/2025 5:25 AM CDT 04/17/2025 5:52 AM CDT Narrative [facility] - 04/20/2025 11:39 AM CDT sent to lab; 04/18/2025 16:21:09 CDT [id number] received in lab; 04/19/2025 14:10:58 CDT [id number] Justin Pantoja MD LAB BLOOD ORDERABLES Fin al Result Performing Organization Address City/[facility] Co de Phone Number [address] [place] [address] [facility] * Reticulocyte Count (04/17/2025 5:25 AM CDT) [facility], absolute 62 20 - 87 K/cumm Retics 2.8 0.4 - 2.9 % [facility] Reticulocyte Hgb 34.0 30.5 - 38.0 pg [facility] Blood 04/17/2025 5:25 AM CDT 04/17/2025 5:52 AM CDT Justin Pantoja MD LAB BLOOD ORDERABLES Fin al Result Performing Organization Address City/[facility] Co de Phone Number [address] [address] * (ABNORMAL) Ferritin (04/17/2025 5:25 AM CDT) [facility] Ferritin 623(H) 13 - 150 ng/mL Blood 04/17/2025 5:25 AM CDT 04/17/2025 5:52 AM CDT Justin Pantoja MD LAB BLOOD ORDERABLES Fin al Result KATHIE [address] [facility] [place] [address] * (ABNORMAL) Basic metabolic panel (04/17/2025 5:25 AM CDT) Pathologist [facility] Sodium 140 135 - 145 mmol/L Potassium, pl 3.5 3.3 - 4.9 mmol/L [facility] Chloride 113(H) 97 - 110 mmol/L [facility] CO2 22 22 - 32 mmol/L [facility] Anion gap 5 2 - 15 mmol/L [facility] BUN 6 6 - 25 mg/dL [facility] Creatinine 0.57(L) 0.60 - 1.10 mg/dL [facility] Glucose 87 70 - 199 mg/dL [facility] Comment: Interpretive Data Fasting glucose [...] 2022. Calcium 8.9 8.5 - 10.3 mg/dL [facility] Blood 04/17/2025 5:25 AM CDT 04/17/2025 5:52 AM CDT us José Luis Jiménez MD LAB BLOOD ORDERABLES Final Result KATHIE [address] [place] [address] Department [place] [address] * (ABNORMAL) Hemoglobin and hematocrit (04/16/2025 11:35 PM CDT) Pathologist [facility] Hgb 7.7(L) 11.9 - 15.5 g/dL Hct 24.2(L) 35.6 - 45.5 % [facility] Blood 04/16/2025 11:3 5 PM CDT 04/16/2025 11:47 PM CDT Jonh Galvez MD LAB BLOOD ORDERABLE S Final Result Performing Organization Address City/[facility]/ZIP Co de Phone Number [address] [place] [address] * (ABNORMAL) Hemoglobin and hematocrit (04/16/2025 5:54 PM CDT) Hgb 8.8(L) 11.9 - 15.5 g/dL Hct 28.1(L) 35.6 - 45.5 % [facility] Blood 04/16/2025 5:54 PM CDT 04/16/2025 6:06 PM CDT Jonh Galvez MD LAB BLOOD ORDERABLE S Final Result Performing Organization Address City/[facility] Co de Phone Number [address] [address] * (ABNORMAL) Hemoglobin and hematocrit (04/16/2025 11:39 AM CDT) Hgb 7.6(L) 11.9 - 15.5 g/dL Hct 24.0(L) 35.6 - 45.5 % [facility] Blood 04/16/2025 11:3 9 AM CDT 04/16/2025 12:06 PM CDT Jonh Galvez MD LAB BLOOD ORDERABLE S Final Result Performing Organization Address City/[facility] Co de Phone Number [address] [address] * (ABNORMAL) POC Blood Gas and Chemistries, Venous - (04/16/2025 8:24 AM CDT) pH,shama POC 7.37 7.32 - 7.43 pCO2, shama POC 38(L) 40 - 50 mmHg [facility] pO2,shama POC 48 mmHg [facility] Comment: Interpretive Data No reference range established. Current interpretive data was last revised 2020. HCO3, shama (Calc) POC 22 20 - 30 mmol/L [facility] Base excess, shama POC -3 mmol/L [facility] Comment: Interpretive Data No reference range established. Current interpretive data was last revised 2020. Oxy Hgb, shama POC 81.3(L) 90.0 - 95.0 % [facility] Met Hgb, shama POC 1.1 0.0 - 1.9 % [facility] Carboxy Hgb, shama POC 3.5(H) 0.0 - 2.9 % [facility] Hemoglobin, shama POC 8.2(L) 11.9 - 15.5 g/dL [facility] Lactate, shama POC 0.7 0.7 - 2.0 mmol/L [facility] Blood 04/16/2025 8:24 AM CDT 04/16/2025 8:24 AM CDT Justin Pantoja MD LAB POCT ORDERABLES - DE VICE Final Result Performing Organization Address City/[facility] Co de Phone Number [address] [employer] [place], [place] [phone] * (ABNORMAL) Hemoglobin and hematocrit (04/16/2025 5:44 AM CDT) Pathologist [facility] Hgb 7.7(L) 11.9 - 15.5 g/dL Hct 25.0(L) 35.6 - 45.5 % [facility] Blood 04/16/2025 5:44 AM CDT 04/16/2025 6:00 AM CDT Jonh Galvez MD LAB BLOOD ORDERABLE S Final Result CERNER [address] [place] [address] * eGFR (04/16/2025 4:13 AM CDT) eGFR [...] MD LAB BLOOD ORDERABLE S Final Result [facility] [address] [place] [address] * (ABNORMAL) Hemoglobin and hematocrit (04/16/2025 4:13 AM CDT) Hgb 7.9(L) 11.9 - 15.5 g/dL Hct 25.2(L) 35.6 - 45.5 % [facility] Blood 04/16/2025 4:13 AM CDT 04/16/2025 4:19 AM CDT Jonh Galvez MD LAB BLOOD ORDERABLE S Final Result [address] [place] [address] * (ABNORMAL) Basic metabolic panel (04/16/2025 4:13 AM CDT) Sodium 139 135 - 145 mmol/L Potassium, pl 3.5 3.3 - 4.9 mmol/L [facility] Chloride 112(H) 97 - 110 mmol/L [facility] CO2 22 22 - 32 mmol/L [facility] Anion gap 5 2 - 15 mmol/L [facility] BUN 6 6 - 25 mg/dL [facility] Creatinine 0.65 0.60 - 1.10 mg/dL [facility] Glucose 89 70 - 199 mg/dL [facility] Comment: Interpretive Data Fasting glucose [...] 2022. Calcium 8.9 8.5 - 10.3 mg/dL [facility] Blood 04/16/2025 4:13 AM CDT 04/16/2025 4:19 AM CDT us José Luis Jiménez MD LAB BLOOD ORDERABLES Final Result Performing Organization Address [facility]/ZIP Co de Phone Number [address] [place] [address] * Transfuse RBC (04/16/2025 3:29 AM CDT) Blood Nayla Hartman NP BLOOD TRANSFUSION ORDERA BLES Final Result Performing Organization Address [facility]/ZIP Co de Phone Number [address] [place] [address] * (ABNORMAL) Hemoglobin and hematocrit (04/15/2025 11:40 PM CDT) [facility] Hgb 7.0(L) 11.9 - 15.5 g/dL Hct 22.5(L) 35.6 - 45.5 % [facility] Blood 04/15/2025 11:4 0 PM CDT 04/15/2025 11:43 PM CDT Jonh Galvez MD LAB BLOOD ORDERABLE S Final Result Performing Organization Address City/[facility] [address]/ZIP Co de Phone Number [address] [place] [address] * Vancomycin level trough (04/15/2025 11:39 PM CDT) [facility] Vancomycin trough 12.7 10.0 - 20.0 mcg/mL Blood 04/15/2025 11:3 9 PM CDT 04/15/2025 11:43 PM CDT Jonh Galvez MD LAB BLOOD ORDERABLE S Final Result Performing Organization Address City/[facility] Co de Phone Number [address] [address] * Prepare RBC: 1 Units (04/15/2025 9:06 PM CDT) [facility] Units requested 1 Units requested Ready [facility] Unit Number [id number] Product code [id number] [facility] Blood Expiration Date [id number] [facility] Product Blood Type (for scanning) 6200 [facility] Product Blood Type APOS [facility] Dispense Status DISPENSED [facility] Blood 04/15/2025 9:06 PM CDT 04/15/2025 9:06 PM CDT Nayla Hartman NP BLOOD BANK PRODUCT ORDER MILLIE Final Result [address] [address] * (ABNORMAL) Hemoglobin and hematocrit (04/15/2025 7:04 PM CDT) Hgb 6.8(L) 11.9 - 15.5 g/dL Hct 21.6(L) 35.6 - 45.5 % [facility] Blood 04/15/2025 7:04 PM CDT 04/15/2025 7:06 PM CDT Jonh Galvez MD LAB BLOOD ORDERABLE S Final Result Performing Organization Address [facility] Co de Phone Number [address] [address] * (ABNORMAL) Iron profile w/ IBC (04/15/2025 12:05 PM CDT) Iron 76 35 - 145 mcg/dL TIBC 123(L) 250 - 400 mcg/dL [facility] Transferrin saturation 62(H) 20 - 50 % [facility] Blood 04/15/2025 12:0 5 PM CDT 04/15/2025 12:13 PM CDT Jonh Galvez MD LAB BLOOD ORDERABLE S Final Result Performing Organization Address [facility] [facility] [address]/[facility] Co de Phone Number [address] [address] * (ABNORMAL) Hemoglobin and hematocrit (04/15/2025 12:05 PM CDT) Hgb 6.8(L) 11.9 - 15.5 g/dL Hct 21.4(L) 35.6 - 45.5 % [facility] Blood 04/15/2025 12:0 5 PM CDT 04/15/2025 12:13 PM CDT Jonh Galvez MD LAB BLOOD ORDERABLE S Final Result Performing Organization Address City/[facility] [address]/ZIP Co de Phone Number KATHIE FOY [facility] [place] [address] * Blood culture Blood Peripheral (04/15/2025 12:05 PM CDT) Report Final Report: No growth Comment:Testing performed by : [facility], [address] [place]., [address] Blood (Peripheral) 04/15/2025 12:05 PM CDT 04/15/2025 4:28 PM CDT Narrative [facility] - 04/20/2025 7:00 AM CDT If possible, [...] performance characteristics have been verified by the [facility]. For questions about this culture, contact the Microbiology Laboratory at [phone]. Interpretive data was last revised on 24. Jonh Galvez MD LAB MICROBIOLOGY - GENERAL ORDERABLES Final Result KATHIE FOY [address] [facility] [place] [address] * Blood culture Blood Peripheral (04/15/2025 12:03 PM CDT) Report Final Report: No growth Comment:Testing performed by : [facility], [address] [place]., [address] Blood (Peripheral) 04/15/2025 12:03 PM CDT 04/15/2025 4:28 PM CDT Narrative RIVERSHASHI - 04/20/2025 7:00 AM CDT If possible, [...] performance characteristics have been verified by the [facility]. For questions about this culture, contact the Microbiology Laboratory at [phone]. Interpretive data was last revised on 24. us John Galvez MD LAB MICROBIOLOGY - GENERAL ORDERABLES Final Result KATHIE [address] [facility] Department [place] [address] * Transfuse RBC (04/15/2025 9:36 AM CDT) Blood us Marisol Meza NP BLOOD TRANSFUSION ORDERABLES Final Result Performing Organization Address City/[facility] [address]/[facility] Co de Phone Number [address] [address] * Prepare RBC: 1 Units (04/15/2025 3:03 AM CDT) [facility] Units requested 1 Units requested Ready [facility] Unit Number [id number] Product code [id number] [facility] Blood Expiration Date [facility] Product Blood Type (for scanning) 6200 [facility] Product Blood Type APOS [facility] Dispense Status DISPENSED [facility] Blood 04/15/2025 3:03 AM CDT 04/15/2025 3:03 AM CDT Marisol Meza NP BLOOD BANK PRODUCT ORDERABLE S Final Result Performing Organization Address [facility] [address]/[facility] de Phone Number [address] [address] * Sepsis Lactate w/ Reflex (04/15/2025 2:23 AM CDT) [facility] Sepsis Lactate 0.8 0.7 - 2.0 mmol/L Blood 04/15/2025 2:23 AM CDT 04/15/2025 2:38 AM CDT Jonh Galvez MD LAB BLOOD ORDERABLE S Final Result Performing Organization Address [facility] [address]/[facility] Co de Phone Number [address] [address] * eGFR (04/15/2025 2:23 AM CDT) [facility] eGFR >90 >=60 mL/min/1. 73 m2 Comment: [...] of Race in Diagnosing Kidney Disease, JASN 202). The CKD-EPI equation should not be used for patients with unstable renal function and has not been validated in children and those over 70. Current interpretive data was last reviewed 2021. Blood 04/15/2025 2:23 AM CDT 04/15/2025 2:39 AM CDT Jonh Galvez MD LAB BLOOD ORDERABLE S Final Result Performing Organization Address [facility] [address]/[facility] Co de Phone Number [address] [place] [address] * ABO / Rh Confirmation Testing (04/15/2025 2:23 AM CDT) Pathologist [facility] ABO/Rh Confirmation A Positive MHB Blood 04/15/2025 2:23 AM CDT 04/15/2025 2:39 AM CDT Jonh Galvez MD LAB BLOOD ORDERABLE S Final Result Performing Organization Address City/[facility] [address]/[facility] Co de Phone Number [address] [place] [address] MHB * (ABNORMAL) Comprehensive metabolic panel (04/15/2025 2:23 AM CDT) Sodium 139 135 - 145 mmol/L Potassium, pl 3.3 3.3 - 4.9 mmol/L [facility] Chloride 109 97 - 110 mmol/L [facility] CO2 23 22 - 32 mmol/L [facility] Anion gap 7 2 - 15 mmol/L [facility] BUN 6 6 - 25 mg/dL [facility] Creatinine 0.58(L) 0.60 - 1.10 mg/dL [facility] Glucose 84 70 - 199 mg/dL [facility] Comment: Interpretive Data Fasting glucose [...] 2022. Calcium 9.0 8.5 - 10.3 mg/dL [facility] Bilirubin, total 0.8 0.1 - 1.2 mg/dL [facility] Protein, pl 6.1(L) 6.5 - 8.5 g/dL [facility] Albumin 2.6(L) 3.5 - 5.0 g/dL [facility] Alk phos 98 40 - 130 Units/L [facility] ALT 6(L) 7 - 45 Units/L [facility] AST 29 10 - 45 Units/L [facility] Blood 04/15/2025 2:23 AM CDT 04/15/2025 2:39 AM CDT Jonh Galvez MD LAB BLOOD ORDERABLE S Final Result [facility] [address] [facility] Department [place] [address] * (ABNORMAL) Aerobic and anaerobic culture and gram stain Wound Leg, right (04/14/2025 11:01 PM CDT) Direct Specimen Exam Stain: No polymorphonuclear leukocytes seen. Moderate Gram Negative Bacilli Few Gram Positive Cocci Comment:Testing performed by : [facility], [address] [facility], [place]., [address] Report Final Report: Moderate Alcaligenes faecalis Few Staphylococcus aureus Methicillin resistant (MRSA) by penicillin binding protein 2a (PBP2a) testing. Few Pseudomonas aeruginosa Few Mixed aerobic and anaerobic microorganisms (.) [facility] Comment:Testing performed by : [facility], [address] [facility], [place]., [address] Organism ALCALIGENES FAECALIS [facility] Organism STAPHYLOCOCCUS AUREUS KATHIE Organism MIXED AEROBIC AND ANAEROBIC MICROORGANISMS [facility] Organism PSEUDOMONAS AERUGINOSA [facility] Wound (Leg, right) 04/14/2025 11:01 PM CDT 04/15/2025 2:01 AM CDT Narrative BANNERSHASHI - 04/23/2025 1:09 PM CDT Specimen received on an ESwab. Testing performed by [facility] ([phone]) Specimens submitted from normally sterile body sites [...] GENERAL ORDERABLES Final Result Performing Organization Address [facility] [address]/[facility] Co de Phone Number KATHIE [address] [facility] [place] [address] * (ABNORMAL) CBC without differential (04/14/2025 10:28 PM CDT) WBC 4.54 3.80 - 9.90 K/cumm Hgb 6.3(C) 11.9 - 15.5 g/dL [facility] Comment:Critical value ramos d within last 72 hrs Hct 20.3(L) 35.6 - 45.5 % [facility] Plt 164 150 - 400 K/cumm [facility] MPV 10.8 9.1 - 12.3 fL [facility] RBC 1.74(L) 3.90 - 5.20 M/cumm [facility] MCV 116.7(H) 81.3 - 96.4 fL [facility] MCH 36.2(H) 27.1 - 33.3 pg [facility] MCHC 31.0(L) 32.3 - 35.7 g/dL [facility] RDW CV 18.7(H) 11.1 - 14.9 % [facility] RDW SD 80.0(H) 35.7 - 48.1 fL [facility] NRBC abs 0.00 0.00 - 0.01 K/cumm [facility] Blood 04/14/2025 10:2 8 PM CDT 04/14/2025 11:04 PM CDT Jonh Galvez MD LAB BLOOD ORDERABLE S Final Result Performing Organization Address [facility] [address]/ZIP Co de Phone Number KATHIE [address] [facility] [place] [address] * Blood culture Blood Peripheral (04/14/2025 7:28 PM CDT) Report Final Report: No growth Comment:Testing performed by : [facility], [address] [facility], [place]., [address] Blood (Peripheral) 04/14/2025 7:28 PM CDT 04/14/2025 10:07 PM CDT Narrative KATHIE - 04/19/2025 7:00 AM CDT From a [...] performance characteristics have been verified by the [facility]. For questions about this culture, contact the Microbiology Laboratory at [phone]. Interpretive data was last revised on 24. Jonh Galvez MD LAB MICROBIOLOGY - GENERAL ORDERABLES Final Result [address] [place] [address] * Sepsis Lactate w/ Reflex (04/14/2025 7:18 PM CDT) Sepsis Lactate 1.4 0.7 - 2.0 mmol/L Blood 04/14/2025 7:18 PM CDT 04/14/2025 7:32 PM CDT Jonh Galvez MD LAB BLOOD ORDERABLE S Final Result KATHIE MH [address] [place] [address] Department [place] [address] * eGFR (04/14/2025 7:18 PM CDT) [facility] eGFR >90 >=60 mL/min/1. 73 m2 Comment: [...] JIMENEZ LAB BLOOD ORDERABLES Final Resu lt BANNERSHASHI [address] [place] [address] * (ABNORMAL) Differential, auto (04/14/2025 7:18 PM CDT) [facility] Neutrophil abs 4.35 1.50 - 6.50 K/cumm Imm gran abs 0.02 0.00 - 0.10 K/cumm [facility] Lymphocyte abs 0.43(L) 0.80 - 3.30 K/cumm [facility] Monocyte abs 0.47 0.20 - 0.80 K/cumm [facility] Eosinophil abs 0.12 0.00 - 0.50 K/cumm [facility] Basophil abs 0.02 0.00 - 0.10 K/cumm [facility] Neutrophil pct 80.4 % [facility] Comment: Interpretive Data Percent cell count reference ranges are not reported, since discordance with absolute values may lead to misinterpretation of CBC data. Current Interpretive Data was last revised on 2017. Imm gran pct 0.4 % [facility] Comment: Interpretive Data Percent cell count reference ranges are not reported, since discordance with absolute values may lead to misinterpretation of CBC data. Current Interpretive Data was last revised on 2017. Lymphocyte pct 7.9 % [facility] Comment: Interpretive Data Percent cell count reference ranges are not reported, since discordance with absolute values may lead to misinterpretation of CBC data. Current Interpretive Data was last revised on 2017. Monocyte pct 8.7 % [facility] Comment: Interpretive Data Percent cell count reference ranges are not reported, since discordance with absolute values may lead to misinterpretation of CBC data. Current Interpretive Data was last revised on 2017. Eosinophil pct 2.2 % [facility] Comment: Interpretive Data Percent cell count reference ranges are not reported, since discordance with absolute values may lead to misinterpretation of CBC data. Current Interpretive Data was last revised on 2017. Basophil pct 0.4 % [facility] Comment: Interpretive Data Percent cell count reference ranges are not reported, since discordance with absolute values may lead to misinterpretation of CBC data. Current Interpretive Data was last revised on 2017. Blood 04/14/2025 7:18 PM CDT 04/14/2025 7:32 PM CDT us Disha JIMENEZ LAB BLOOD ORDERABLES Final Resu lt [facility] [address] [facility] Department [place] [address] * (ABNORMAL) CBC with auto differential (04/14/2025 7:18 PM CDT) WBC 5.41 3.80 - 9.90 K/cumm Hgb 6.0(C) 11.9 - 15.5 g/dL KATHIE Comment:This result has been called to [id number](warehouse stocker) by [id number] on 04/14/2025 19:39:08, and has been read back. Hct 19.5(L) 35.6 - 45.5 % [facility] Plt 167 150 - 400 K/cumm [facility] MPV 10.2 9.1 - 12.3 fL [facility] RBC 1.66(L) 3.90 - 5.20 M/cumm [facility] MCV 117.5(H) 81.3 - 96.4 fL [facility] MCH 36.1(H) 27.1 - 33.3 pg [facility] MCHC 30.8(L) 32.3 - 35.7 g/dL [facility] RDW CV 18.6(H) 11.1 - 14.9 % [facility] RDW SD 78.3(H) 35.7 - 48.1 fL [facility] NRBC abs 0.00 0.00 - 0.01 K/cumm [facility] Blood 04/14/2025 7:18 PM CDT 04/14/2025 7:32 PM CDT us Disha JIMENEZ LAB BLOOD ORDERABLES Final Resu lt KATHIE [address] [facility] Department [place] [address] * Blood culture Blood Peripheral (04/14/2025 7:18 PM CDT) Report Final Report: No growth Comment:Testing performed by : [facility], [address] [place]., [address] Blood (Peripheral) 04/14/2025 7:18 PM CDT 04/14/2025 10:07 PM CDT Narrative [facility] - 04/19/2025 7:00 AM CDT Draw Blood [...] performance characteristics have been verified by the [facility]. For questions about this culture, contact the Microbiology Laboratory at [phone]. Interpretive data was last revised on 24. Jonh Galvez MD LAB MICROBIOLOGY - GENERAL ORDERABLES Final Result Performing Organization Address City/[facility] [address]/[facility] Co de Phone Number RIVER[address] [place] [address] * (ABNORMAL) Phosphorus (04/14/2025 7:18 PM CDT) Pathologist [facility] Phosphorus, pl 1.9(L) 2.3 - 4.5 mg/dL Blood 04/14/2025 7:18 PM CDT 04/14/2025 7:32 PM CDT Jude Schroeder MD LAB BLOOD ORDERABLES Final Result Performing Organization Address City/[facility] [address]/[facility] Co de Phone Number RIVER[address] [employer] [place] [address] * Magnesium (04/14/2025 7:18 PM CDT) Magnesium 2.4 1.4 - 2.5 mg/dL Blood 04/14/2025 7:18 PM CDT 04/14/2025 7:32 PM CDT Jude Schroeder MD LAB BLOOD ORDERABLES Final Result Performing Organization Address [facility] [address]/ZIP Co de Phone Number BANNERSHASHI [address] [facility] Department [place] [address] * (ABNORMAL) Comprehensive metabolic panel (04/14/2025 7:18 PM CDT) Sodium 138 135 - 145 mmol/L Potassium, pl 3.3 3.3 - 4.9 mmol/L [facility] Chloride 107 97 - 110 mmol/L [facility] CO2 26 22 - 32 mmol/L [facility] Anion gap 5 2 - 15 mmol/L [facility] BUN 6 6 - 25 mg/dL [facility] Creatinine 0.64 0.60 - 1.10 mg/dL [facility] Glucose 116 70 - 199 mg/dL [facility] Comment: Interpretive Data Fasting glucose [...] 2022. Calcium 8.6 8.5 - 10.3 mg/dL [facility] Bilirubin, total 1.0 0.1 - 1.2 mg/dL [facility] Protein, pl 6.2(L) 6.5 - 8.5 g/dL [facility] Albumin 2.6(L) 3.5 - 5.0 g/dL [facility] Alk phos 92 40 - 130 Units/L [facility] ALT 6(L) 7 - 45 Units/L [facility] AST 30 10 - 45 Units/L [facility] Blood 04/14/2025 7:18 PM CDT 04/14/2025 7:32 PM CDT Jonh Galvez MD LAB BLOOD ORDERABLE S Final Result Performing Organization Address [facility] [address]/ZIP Co de Phone Number KATHIE FOY [address] Department [place] [address] * XR Ankle Right 3 or More [...] by Shayan Taylor M.D. T: Report ID: [id number] Reading Location: [id number] Procedure Note Shayan Taylor MD - 04/14/2025 [...] by Shayan Taylor M.D. T: Report ID: [id number] Reading Location: [id number] Disha JIMENEZ IMG XR PROCEDURES Final Result [...] by Shayan Taylor M.D. T: Report ID: [id number] Reading Location: [id number] Procedure Note Shayan Taylor MD - 04/14/2025 [...] by Shayan Taylor M.D. T: Report ID: [id number] Reading Location: [place] [address] Disha JIMENEZ IMG XR PROCEDURES Final Result * Urinalysis reflex to microscopic and culture Urine, clean voided (04/14/2025 12:13 PM CDT) Color, ur Yellow Yellow Clarity, ur Clear Clear [facility] Specific gravity, ur 1.019 1.003 - 1.030 [facility] pH, urine 8.0 [facility] Comment: Interpretive Data U rine pH is affected by diet, medications, systemic acid-base disturbances, and renal tubular function. pH may affect urinary stone formation. For example, urine pH below 6.0 may help reduce the tendency for calcium phosphate stones and pH greater than 6.0 may reduce the tendency for uric acid stone formation. Source: [facility] Current Interpretive Data was last revised on 2017 Protein, ur ql Negative Negative [facility] Glucose, ur ql Negative Negative [facility] Ketones, ur Negative Negative [facility] Bilirubin, ur Negative Negative [facility] Blood, ur Negative Negative [facility] Urobilinogen, ur <2.0 <2.0 mg/dL [facility] Nitrite, ur Negative Negative [facility] Leukocyte esterase, ur Negative Negative [facility] UA reflex comment Reflex conditions for microscopic UA and culture not met. [facility] Urine, clean voided 04/14/2025 12:13 PM CDT 04/14/2025 12:21 PM CDT Candie Preciado HAND KISS [employer]TER LAB MICROBIOLOGY - G ENERAL ORDERABLES Final Result [facility] [address] [facility] Department [place] [address] * eGFR (04/14/2025 11:35 AM CDT) [facility] eGFR >90 >=60 mL/min/1. 73 m2 Comment: [...] 5 AM CDT 04/14/2025 11:37 AM CDT us José Luis Jiménez MD LAB BLOOD ORDERABLES Final Result BANNERSHASHI [address] [facility] Department [place] [address] * (ABNORMAL) Differential, auto (04/14/2025 11:35 AM CDT) [facility] Neutrophil abs 6.62(H) 1.50 - 6.50 K/cumm Imm gran abs 0.01 0.00 - 0.10 K/cumm [facility] Lymphocyte abs 0.36(L) 0.80 - 3.30 K/cumm [facility] Monocyte abs 0.59 0.20 - 0.80 K/cumm [facility] Eosinophil abs 0.08 0.00 - 0.50 K/cumm [facility] Basophil abs 0.04 0.00 - 0.10 K/cumm [facility] Neutrophil pct 86.0 % [facility] Comment: Interpretive Data Percent cell count reference ranges are not reported, since discordance with absolute values may lead to misinterpretation of CBC data. Current Interpretive Data was last revised on 2017. Imm gran pct 0.1 % [facility] Comment: Interpretive Data Percent cell count reference ranges are not reported, since discordance with absolute values may lead to misinterpretation of CBC data. Current Interpretive Data was last revised on 2017. Lymphocyte pct 4.7 % [facility] Comment: Interpretive Data Percent cell count reference ranges are not reported, since discordance with absolute values may lead to misinterpretation of CBC data. Current Interpretive Data was last revised on 2017. Monocyte pct 7.7 % [facility] Comment: Interpretive Data Percent cell count reference ranges are not reported, since discordance with absolute values may lead to misinterpretation of CBC data. Current Interpretive Data was last revised on 2017. Eosinophil pct 1.0 % [facility] Comment: Interpretive Data Percent cell count reference ranges are not reported, since discordance with absolute values may lead to misinterpretation of CBC data. Current Interpretive Data was last revised on 2017. Basophil pct 0.5 % [facility] Comment: Interpretive Data Percent cell count reference ranges are not reported, since discordance with absolute values may lead to misinterpretation of CBC data. Current Interpretive Data was last revised on 2017. Blood 04/14/2025 11:3 5 AM CDT 04/14/2025 11:37 AM CDT José Luis Jiménez MD LAB BLOOD ORDERABLES Final Result [facility] [address] [facility] Department of Laboratories [place], [place] [id number] * (ABNORMAL) CBC with auto differential (04/14/2025 11:35 AM CDT) WBC 7.70 3.80 - 9.90 K/cumm Hgb 7.2(L) 11.9 - 15.5 g/dL [facility] Hct 22.9(L) 35.6 - 45.5 % [facility] Plt 201 150 - 400 K/cumm [facility] MPV 10.5 9.1 - 12.3 fL [facility] RBC 1.98(L) 3.90 - 5.20 M/cumm [facility] MCV 115.7(H) 81.3 - 96.4 fL [facility] MCH 36.4(H) 27.1 - 33.3 pg [facility] MCHC 31.4(L) 32.3 - 35.7 g/dL [facility] RDW CV 18.7(H) 11.1 - 14.9 % [facility] RDW SD 78.1(H) 35.7 - 48.1 fL [facility] NRBC abs 0.00 0.00 - 0.01 K/cumm [facility] Blood 04/14/2025 11:3 5 AM CDT 04/14/2025 11:37 AM CDT José Luis Jiménez MD LAB BLOOD ORDERABLES Final Result Performing Organization Address [facility] [address]/[facility] de Phone Number [address] [place] [address] * ABO/Rh (04/14/2025 11:35 AM CDT) ABO/Rh A Positive Blood 04/14/2025 11:3 5 AM CDT 04/14/2025 11:37 AM CDT Narrative [facility] - 04/14/2025 12:42 PM CDT Is this test being ordered in advance for a procedure?->Yes Expected date of procedure:->04/13/25 Has the patient been transfused in the past 3 months?->No Has the patient been in the past 3 months?->No José Luis Jiménez MD LAB BLOOD BANK TEST ORDERAB LES Final Result Performing Organization Address [facility] [address]/[facility] Co de Phone Number [address] [place] [address] * (ABNORMAL) aPTT (04/14/2025 11:35 AM CDT) aPTT 46(H) 22 - 37 sec Comment: Interpretive data aPTT test has not been evaluated for monitoring heparin therapy. The anti-Xa is the preferred test. Current interpretive data was last revised on 2019. Blood 04/14/2025 11:3 5 AM CDT 04/14/2025 11:36 AM CDT José Luis Jiménez MD LAB BLOOD ORDERABLES Final Result Performing Organization Address City/[facility] [address]/[facility] Co de Phone Number KATHIE [address] [place] [address] * (ABNORMAL) Protime-INR (04/14/2025 11:35 AM CDT) PT 22.70(H) 12.00 - 14.60 sec INR 2.02(H) 0.90 - 1.20 KATHIE Comment: Interpretive data Oral anticoagulant therapeutic ranges: Venous thromboembolism prophylaxis or treatment: 2.0-3.0 CARDIOLOGY Standard range: 2.0-3.0 High-intensity range: 2.5-3.5 Refer to indication-specific guidelines for appropriate target ranges for prosthetic heart valve replacement. Current interpretive data was last revised on 2019. Blood 04/14/2025 11:3 5 AM CDT 04/14/2025 11:36 AM CDT us José Luis Jiménez MD LAB BLOOD ORDERABLES Final Result Performing Organization Address City/[facility] [address]/[facility] Co de Phone Number KATHIE [address] [place] [address] * Crossmatch (04/14/2025 11:35 AM CDT) Crossmatch Compatible KATHIE Unit number for crossmatch [id number] KATHIE Crossmatch Compatible KATHIE Unit number for crossmatch [id number] KATHIE Blood 04/14/2025 11:3 5 AM CDT 04/14/2025 11:37 AM CDT José Luis Jiménez MD LAB BLOOD BANK TEST ORDERAB LES Edited Result - Final Performing Organization Address [facility] [address]/[facility] de Phone Number [address] [address] * Antibody screen (04/14/2025 11:35 AM CDT) [facility] Susan, indirect, Gel Interpretation Negative ABSC Blood 04/14/2025 11:3 5 AM CDT 04/14/2025 11:37 AM CDT N[facility]ative [facility] - 04/14/2025 12:42 PM CDT Is this test being ordered in advance for a procedure?->Yes Expected date of procedure:->04/13/25 Has the patient been transfused in the past 3 months?->No Has the patient been in the past 3 months?->No José Luis Jiménez MD LAB BLOOD BANK TEST ORDERAB LES Final Result Performing Organization Address [facility] de Phone Number [id number] [place] [address] * (ABNORMAL) Comprehensive metabolic panel (04/14/2025 11:35 AM CDT) [facility] Sodium 138 135 - 145 mmol/L Potassium, pl 3.8 3.3 - 4.9 mmol/L [facility] Chloride 102 97 - 110 mmol/L [facility] CO2 28 22 - 32 mmol/L [facility] Anion gap 8 2 - 15 mmol/L [facility] BUN 8 6 - 25 mg/dL [facility] Creatinine 0.66 0.60 - 1.10 mg/dL [facility] Glucose 106 70 - 199 mg/dL [facility] Comment: Interpretive Data Fasting glucose [...] 2022. Calcium 9.9 8.5 - 10.3 mg/dL [facility] Bilirubin, total 1.3(H) 0.1 - 1.2 mg/dL [facility] Protein, pl 7.4 6.5 - 8.5 g/dL [facility] Albumin 3.1(L) 3.5 - 5.0 g/dL [facility] Alk phos 111 40 - 130 Units/L [facility] ALT 8 7 - 45 Units/L [facility] AST 36 10 - 45 Units/L [facility] Blood 04/14/2025 11:3 5 AM CDT 04/14/2025 11:37 AM CDT us José Luis Jiménez MD LAB BLOOD ORDERABLES Final Result Performing Organization Address City/State/[facility] Co de Phone Number KATHIE [address] [facility] Department [place] [address] * PET/CT FDG Skull to Thigh (04/14/2025 [...] lymphadenopathy is consistent with metastatic disease. A auto service representative right supraclavicular lymph node measuring [...] right abdomen. Bilateral hypermetabolic inguinal lymphadenopathy. A auto service representative left inguinal lymph node measures [...] Shayan Rocha M.D. LB: VANDANA Report ID: [id number] Reading Location: [id number] Procedure Note Shayan Rocha MD - 04/14/2025 [...] lymphadenopathy is consistent with metastatic disease. A auto service representative right supraclavicular lymph node measuring [...] right abdomen. Bilateral hypermetabolic inguinal lymphadenopathy. A auto service representative left inguinallymph node measures 2.8 [...] Shayan Rocha M.D. LB: LB Report ID: [id number] Reading Location: [id number] Sascha Donohue MD IMG PET PROCEDURES Final Resul t * POCT glucose (04/14/2025 8:43 AM CDT) [facility] Glucose, POC 97 70 - 199 mg/dL Comment:Testing performed by : [facility], [address] [place] [address]., [id number] Blood 04/14/2025 8:43 AM CDT 04/14/2025 8:43 AM CDT Sascha Donohue MD LAB POCT ORDERABLES - DEVICE F inal Result [facility] [address] [facility] Department [place] [address] * Occult blood, fecal non neoplasm screening (08/26/2013 6:00 AM FLAT SORTING MACHINE CLERK) [facility] Stool Occult Blood NEGATIVE NEGATIVE 08/26/2013 8:07 AM FLAT SORTING MACHINE CLERK [facility] HISTORICAL RESULTS 08/26/2013 6:00 AM FLAT SORTING MACHINE CLERK 08/26/2013 7:31 AM FLAT SORTING MACHINE CLERK Narrative [facility] HISTORICAL RESULTS - 08/26/2013 8:07 AM FLAT SORTING MACHINE CLERK Collected By 193 Stephanie Singh MD LAB BODY FLUIDS AND STOOLS ORD ERABLES Final Result [facility] HISTORICAL RESULTS * FLEXIBLE SIGMOIDOSCOPY REPORT (07/17/2012) Anatomical Region Laterality Modality Other Narrative 07/17/2012 Ordered by an unspecified provider. us Historical Provider MD DIXON PROCEDURE ORDERABLES F inal Result from Last 3 Months or Most Recently Relevant to Health Maintenance Insurance [facility] MEDICARE ADVANTAGE [facility] MEDICARE ADVANTAGE Advance Directives For more information, please contact: [phone] Documents on File Type Date Recorded Patient Procedural Nurse Expl anation ADVANCE DIRECTIVE 08/18/2012 12:00 AM DNR ADVANCE DIRECTIVE 10/23/2011 12:00 AM SONIYA R OF GENERAL LOT ATTENDANT FINANCIAL/MEDICAL * Full Code (Latest Code Status on File) Date Activated Date Inactivated Comments 04/14/2025 7:45 PM 04/21/2025 5:00 PM * Full Code Date Activated Date Inactivated Comments 01/27/2025 3:21 PM 02/01/2025 6:18 PM * Full Code Date Activated Date Inactivated Comments 04/19/2023 11:04 AM 05/18/2023 5:10 PM Care Teams Product Safety Test Engineer Relationship Specialty Start Date End Date Susan Ayala DO [address] [place] [id number] PCP - General Family Medicine 08/24/24
--- OUTSIDE RECORDS SUMMARY | 2025-05-24 00:10 | XMS_ITS | Clinical Summary ---
Author Organization [facility] Address [address] [place] [address] Care Team Providers Care Hydro Mechanic Name Role Phone Nayely Singh MD Primary Care Provider [phone] Allergies No known active allergies Medications oxyCODONE [...] Diagnosed Date Coronary artery disease invo lving napaimute coronary artery of napaimute heart without angina pectoris 05/23/2023 At high [...] lidoderm patches and dilaudid IV PRN, passed EXTRUSION PRESS ADJUSTER eval today, liberalize to oral multimodal regimen [...] bedside swallow in ICU - 04/22 passed EXTRUSION PRESS ADJUSTER eval for reg/thin, assist with feeds iso [...] ordered 04/23 PT recs for inpatient rehab, piano case maker notified, ADD 04/25 04/24 patient agreeable to short term IPR placement in [place], [place] area -- case management aware, [facility], [facility] --- additional discussions [...] medical conditions F/u prior vascular surgeon for shelter evaluation of 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 SBO r/t parastomal hernia incarceration. --- transferred to [facility] for higher level of care 04/19 OR [...] inpatient due to risk for evisceration 05/05-05/06 [id number] AFVSS, wbc 4 from 4, abx: none, [...] MCG/ 0.5 ML DOSE 01/02/2021 MODERNA COVID-19 (DIP UNIT OPERATOR RON CHRIS), MRNA, LNP-S, PF, 50 MCG/ [...] Comments Blood Pressure 122/72 06/03/2023 4:33 PM INSURANCE OFFICE MANAGER Pulse 77 06/03/2023 4:33 PM INSURANCE OFFICE MANAGER Temperature 36.6 C (97.9 F) 06/03/2023 4:33 PM INSURANCE OFFICE MANAGER Respiratory Rate 18 06/03/2023 4:33 PM INSURANCE OFFICE MANAGER Oxygen Saturation 96% 06/03/2023 4:33 PM INSURANCE OFFICE MANAGER Inhaled Oxygen Concentration - - Weight 67.1 kg (148 lb) 06/03/2023 4:33 PM INSURANCE OFFICE MANAGER Height 175.3 cm (5' 9) 06/03/2023 4:33 PM INSURANCE OFFICE MANAGER Body Mass Index 21.86 06/03/2023 4:33 PM INSURANCE OFFICE MANAGER Plan of Treatment Health Maintenance Due Date [...] (2 of 2) 09/19/2022 07/25/2022 PHQ-2 (Physician [employer] [place]) 06/30/2024 COVID-19 Vaccine (4 - 2024-2 6 [...] patient's age to complete this topic Insurance [facility] MEDICARE Care Teams Hydro Mechanic Relationship Specialty Start Date End Date Nayely Singh MD [address] [place], [place] [id number] PCP - General ADULT MEDICINE 08/25/22
--- OUTSIDE RECORDS SUMMARY | 2025-05-24 00:10 | XMS_ITS | Encounter Summary ---
Author Organization [facility] [employer] Address [address] [place] [address] Care Team Providers Care Laborer Demolition Name Role Phone Nayely Singh MD Primary Care Provider [phone] Encounter Details Date Type Department Care Team (Late st Contact Info) Description 05/20/2025 Orders Only [facility] Oncology and Hematology - [place] [address] [facility] [address] [place] [address] Sascha Donohue MD [address] [facility] [address] [place] [address] Social History Tobacco Use Types Packs/Day Years [...] on file Legal Sex Female 5:41 AM IT SECURITY ANALYST Gender Identity Not on file Sexual Orientation Not on file documented as of this encounter Plan of Treatment Upcoming Encounters Date Type Department Care Team (Late st Contact Info) Description 05/31/2025 2:30 PM IT SECURITY ANALYST Office Visit [facility] Oncology and Hematology - [place] [address] [facility] [address] [place] [address] Sascha Donohue MD [address] [facility] [address] [place] [address] documented as of this encounter Procedures Procedure Name Priority Date/Time Associated Diagnosis Comments CBC WITH AUTODIFFERENTIAL Routine 2024 7:57 AM IT SECURITY ANALYST documented in this encounter Results * CBC WITH AUTODIFFERENTIAL (05/19/2025 7:57 AM IT SECURITY ANALYST) Blood us Sascha Donohue MD HEMATOLOGY ORDERABLES Final Res ult documented in this encounter Visit Diagnoses Not on filedocumented in this encounter Care Teams Laborer Demolition Relationship Specialty Start Date End Date Nayely Singh MD [address] [place] [address] PCP - General Family Practice 12/10/23 documented as of this encounter
--- OUTSIDE RECORDS SUMMARY | 2025-05-24 00:10 | XMS_ITS | Encounter Summary ---
Author Organization [facility] Address [address] [place] [address] Care Team Providers Care Network Operations Specialist Name Role Phone Stephanie Singh MD Primary Care Provider [phone] Susan Ayala DO Primary Care Provider [phone] Encounter Details Date Type Department Care Team (Late st Contact Info) Description 04/19/2023 Documentation [facility] [address] [place] [address] Latia Taylor RN Social History Tobacco Use [...] on file Legal Sex Female 4:26 AM INSPECTOR MECHANICAL Gender Identity Not on file Sexual Orientation [...] CDT Giuliana Rock RN Have you ever felt bad or Guilty about your drinking? 0 04/19/2023 3:24 AM CDT Giuliana Rock RN Have you ever had a drink first thing in the morning to steady your nerves or get rid of a hangover? Eye atmospheric chemist? 0 04/19/2023 3:24 AM CDT Giuliana Rock [...] 1 04/19/2023 2:27 PM Sher Ram RN PLUG SHAPER HAND Evaluation Needed 1 04/19/2023 2:27 PM Sher [...] Fritz RN Patient is in need of PLUG SHAPER HAND Order: No PLUG SHAPER HAND order needed from this assessment 04/19/2023 2:27 PM CDT Sher Fritz RN documented as of this encounter Mental Status * Question Answer Entry Date Author Neuro ([facility]) X 04/21/2023 7:00 AM CDT Мария Ocampo RN * Question Answer Entry Date Author Level of Consciousness Awake;Drowsy 11:40 PM CDT Migdalia Dickens RN Orientation Oriented to person;Oriented to place 04/22/2023 11:40 PM CDT Migdalia Dickens RN Neuro ([facility]) X 04/22/2023 11:40 PM CDT Migdalia Dickens [...] on filedocumented in this encounter Care Teams Network Operations Specialist Relationship Specialty Start Date End Date Stephanie Singh MD PCP - General Internal Medicine 11/09/18 08/23/24 Susan Ayala DO [address] [place] [id number] PCP - General Family Medicine 08/24/24 documented as of this encounter
--- OUTSIDE RECORDS SUMMARY | 2025-05-24 00:10 | XMS_ITS | Encounter Summary ---
Author Organization [facility] [employer] Address [address] [place] [address] Care Team Providers Care Metal Furnace Operator Name Role Phone Nayely Singh MD Primary Care Provider [phone] Encounter Details Date Type Department Care Team (Late st Contact Info) Description 05/23/2025 Orders Only [facility] Oncology and Hematology - [place] [address] [facility] [address] [place] [address] Sascha Donohue MD [address] [facility] [address] [place] [address] Malignant neoplasm of lower-outer quadrant [...] on file Legal Sex Female 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 Gender Identity Not on file Sexual Orientation Not on file documented as of this encounter Plan of Treatment Upcoming Encounters Date Type Department Care Team (Late st Contact Info) Description 05/31/2025 2:30 PM INSPECTOR MATERIAL DISPOSITION Office Visit [facility] Oncology and Hematology - [place] [address] [facility] [address] [place] [address] Sascha Donohue MD [address] [facility] [address] [place] [address] documented as of this encounter Visit Diagnoses Diagnosis Malignant neoplasm of lower-outer quadrant of right breast of female, estrogen receptor positive (CMS/HCC) documented in this encounter Care Teams Metal Furnace Operator Relationship Specialty Start Date End Date Nayely Singh MD [address] [place] [address] PCP - General Family Practice 12/10/23 documented as of this encounter
--- OUTSIDE RECORDS SUMMARY | 2025-05-24 00:11 | XMS_ITS | Data Portability ---
[facility] Organization 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 [facility] [address] [place] [address] Dr Moe, [place], [address], 09/18/2022 05:09:00 09/14/19 23 09/11/2022 , echoc ardio gram No observ ation record ed. [email or web address] Not Available 2022 11:28:41 Result Notes None recorded. Problems Name Problem SNOMED Code Status Onset Date Resolution Date Notes Provider Name and Address Organization Details Recorded Time Cerebrovascul ar accident 972602911 Active 2016 Julissa Ngoer [place], [place] - [facility] 7 10:22:01 Cough 50094442 Active 2016 Julissa Segundoann [place], [place] - [facility] 7 10:23:59 Fluttering heart 585158308 Active 2016 Julissa Segundoann [place], [place] - [facility] 7 10:24:08 Cramp in lower limb 501677994 Active 2016 Julissa Segundo [place], [place] - [facility] 7 10:24:16 Edema of lower extremity 835937596 Active 2016 [facility] Segundo [place], [place] - [facility] 7 10:24:25 Chest pain 97102529 Active 2016 Julissa Segundo [place], [place] - [facility] 7 10:24:33 Dizziness 897344013 Active 2016 Julissa Segundo [place] - [facility] 7 10:24:42 Seizure 21928566 Active 2016 Julissa Segundo [place], [place] - [facility] 7 10:24:50 Pain of joint 11126301 Active 2016 [facility] Segundoann [place], [place] - [facility] 7 10:25:30 History of pulmonary embolus 864406632 Active 2016 Adrienne [place], [place] - [facility] 7 14:44:32 Peripheral arterial occlusive disease 653947329 Active 2016 Adrienne [place], [place] - [facility] 2 15:39:24 Deep venous thrombosis 332764937 Active 2016 Adrien[place], [place] - [facility] 2 15:39:17 Dyslipidemia 494126151 Active 2016 Adrienne [place], [place] - [facility] 2 15:39:20 Venous insufficiency of lower limb 227546706 Active 2016 s/p brady iliac venous stents Adrienne Lawler [facility], [place] - [facility] 7 16:02:32 Notes:BLOOD CLOTS: LEGS/LUNG S Problem Notes None recorded. Medical Equipment None Reported. Allergies No known drug allergies Medications Name Sig Start Date Stop Date Status Note LastModified by Organization Details LastModified Time compounded medication APPLY 3-4 TIMES DAILY AM, PM, AND NEEDED 08/25 completed Not Available Not Available Not Available methadone hcl 5 mg tabs 03/11 completed Not Available Not Available Not Available cephalexin 500 mg caps 08/25 completed No longer take it 9 : MA Not Available Not Available Not Available desoximeta sone 0.05 % oint 08/25 completed Not Available Not Available Not Available xarelto 10 mg tabs 03/11 completed Not Available Not Available Not Available advair diskus 250-50 mcg/dose aepb 08/25 completed Not Available Not Available Not Available dicloxacil [...] Not Available Not Available furosemide 40 mg tabs qd 08/25 completed Not Available Not Available Not Available se-louann 19 29-1 mg tabs qd 03/07 completed [...] sp Not Available Not Available Not Available sulfametho [...] MA Not Available Not Available Not Available potassium chloride er 10 meq tbcr 08/25 completed pt not taking 08/25/20 sp Not Available Not Available Not Available oxycodone [...] weight Heart rate Respiratory rate Oxygen saturation Systolic And Diastolic Provider Name and Address Organization Details Last Updated DateTime 3 175.26 cm 26.3 kg/m2 53204.4 4 g 72 /min 16 /min 98 % 124/78 mm[Hg] Wero Solitario [facility] 3 15:52:16 Date Recorded Body height Body mass index (BMI) Body weight Heart rate Respiratory rate Oxygen saturation Systolic And Diastolic Provider Name and Address Organization Details Last Updated DateTime 3 175.26 cm 26.6 kg/m2 19458.6 3 g 72 /min 16 /min 98 % 124/82 mm[Hg] Wero Solitario [facility] 3 14:35:03 Date Recorded Body height Body mass index (BMI) Body weight Oxygen saturation Heart rate Systolic And Diastolic Provider Name and Address Organization Details Last Updated DateTime 2 175.26 cm 32.1 kg/m2 43510.3 4 g 98 % 69 /min 118/60 mm[Hg] PAYTON ALFARO [facility] 2 12:02:09 Date Recorded Body height Body mass index (BMI) Body weight Heart rate Oxygen saturation Systolic And Diastolic Provider Name and Address Organization Details Last Updated DateTime 3 175.26 cm 25.3 kg/m2 21054.3 g 66 /min 98 % 100/65 mm[Hg] Meredith Figueroa [facility] 3 10:21:32 Date Recorded Body height Body mass index (BMI) Body weight Oxygen saturation Heart rate Systolic And Diastolic Provider Name and Address Organization Details Last Updated DateTime 1 175.26 cm 34 kg/m2 705562. 25 g 98 % 52 /min 110/72 mm[Hg] RONEN ZULEMACORINNAJJ [facility] 1 12:06:42 Social History Question Answer Notes LastModified by [employer] Details LastModified Time Tobacco Smoking Status Former Smoker quit in 1979 Julissa baron [facility] 09/24/2016 10:26:39 What Is Your Level Of Caffeine Consumption? Heavy [email or web address] Information not available 09/24/2016 How Much Tobacco Do You Chew? None [email or web address] Information not available 09/24/2016 What Type Of Diet Are You Following? REGULAR [email or web address] Information not available 09/24/2016 Which Illicit Or Recreational Drugs Have You Used? No [email or web address] Information not available 09/24/2016 Live Alone Or With Others? With Others [email or web address] Information not available 09/24/2016 Marital Status [email or web address] Informatio n not available 09/24/2016 What Was The Date Of Your Most Recent Tobacco Screening? 04/14/2018 Information not available 01/21/2019 How Many Children Do You Have? 2 [email or web address] Information not available 09/24/2016 General Stress Level Medium [email or web address] Information not available 09/24/2016 Sex: Unknown Functional Status Question Answer Note LastModified by [employer] Details LastModified Time What is your level of alcohol consumption? None [email or web address] Information not available 09/24/2016 Do you or have you ever used smokeless tobacco? Former smokeless tobacco user Information not available 07/06/2020 Do you or have you ever used e-cigarettes or vape? Never used electronic cigarettes Information not available 07/06/2020 What is your exercise level? Occasional [email or web address] Information not available 09/24/2016 Mental Status None recorded. Family History Relationship Description Onset Age of this Age Resolved Age Notes LastModified by Organization Details LastModified Time Mother Heart disease [email or web address] Not available 2016 10:25:52 Mother Diabetes mellitus [email or web address] Not available 2016 10:26:02 Medical History Condition Response Peripheral Arterial Disease Y Hyperlipidemia Y Deep Vein Thrombosis Y Stroke Y Blood Clot Y Gynecological HistoryNo gynecological history recorded. Obstetrics History GPAL:G 0 P 0 0 0 0 Past Encounters Encounter ID Performer Location Encounter Start Date Encounter Closed Date Diagnosis/Indication Diagnosis SNOMED-CT Code Diagnosis ICD10 Code Diagnosis IMO Codes Diagnosis Note [id number] Kishore Gonzalez MD [facility] OFF[facility] [place] [address] 09/24/2016 10:02:04 09/24/2016 12:03:04 Atypical chest pain 815663579 R07.89 Treadmill Myoview Stress test, has high [place] Risk score. Has Known CAD, or CAD risk equivalent . To look for any ischemia. History of pulmonary embolus 310777066 Z86.711 on xarelto Peripheral arterial occlusive disease 003610893 I73.9 Arterial [place] Deep venou s thrombosis 979665577 I82.409 Dyslipidemia 683829098 E 78.5 Needs to keep LDL less than 70, and HDL more than 40Will [place] [id number] Kishore Gonzalez MD [facility] OFF[facility] [address] [place] [address] 10/11/2016 10:59:44 10/11/2016 14:41:29 Edema of lower extremity 618891559 R60.0 Atypical chest pain 1025 03517 R07.89 Treadmill Myoview Stress test, has high [place] Risk score. Has Known CAD, or CAD risk equivalent . To look for any ischemia. History of pulmonary embolus 636418043 Z86.711 on xarelto Peripheral arterial occlusive disease 477951852 I73.9 Mild Deep venou s thrombosis 712317458 I82.409 With abnormal dopplerWil l arrange for venogram and IVUS Dyslipidemia 862795493 E 78.5 Needs to keep LDL less than 70, and HDL more than 40Will [place] [id number] Kishore Gonzalez MD [facility] OFF[facility] [place] [address] 10/22/2016 09:36:11 10/22/2016 14:06:08 Deep venous thrombosis 776873370 I82.409 With abnormal dopplerWil l arrange for venogram and IVUS Edema of l ower extremity 436358694 R60.0 Atypical chest pain 1025 18789 R07.89 Treadmill Myoview Stress test, has high [place] Risk score. Has Known CAD, or CAD risk equivalent . To look for any ischemia. History of pulmonary embolus 786063648 Z86.711 on xarelto Peripheral arterial occlusive disease 565672176 I73.9 Mild Dyslipidemia 350257112 E 78.5 Needs to keep LDL less than 70, and HDL more than 40Will get fating lipids for follow up Venous ins ufficiency of lower limb 694777958 I87.2 Will plan bid venous stents I spent times with her to discuss the finding and the plan including possible damage to the filter I answered all her questions She needs to stay on Xarelto [id number] Kishore Gonzalez MD [facility] OFF[facility] [address] [place] [address] 11/05/2016 09:30:18 11/05/2016 12:11:07 Dyslipidemia 561286028 E78.5 Needs to keep LDL less than 70, and HDL more than 40Will get fating lipids for follow up Deep venou s thrombosis 935199748 I82.409 With abnormal dopplerWil l arrange for venogram and IVUS Edema of l ower extremity 626370609 R60.0 Atypical chest pain 1025 35677 R07.89 Treadmill Myoview Stress test, has high [place] Risk score. Has Known CAD, or CAD risk equivalent . To look for any ischemia. Venous ins ufficiency of lower limb 228317693 I87.2 s/p brady iliac venous stents She needs to stay on Xarelto History of pulmonary embolus 626751441 Z86.711 on xarelto [id number] Sumit Quintero MD [facility] OFF[facility] [address] [place] [address] 12/17/2016 10:42:52 12/17/2016 19:04:27 Dyslipidemia 035008946 E78.5 Needs to keep LDL less than 70, and HDL more than 40Will get fating lipids for follow up Deep venou s thrombosis 916868437 I82.409 With abnormal doppler, FU duplex Edema of l ower extremity 338822945 R60.0 Atypical chest pain 1025 28250 R07.89 resolved Venous ins ufficiency of lower limb 719833586 I87.2 s/p brady iliac venous stents She needs to stay on Xarelto History of pulmonary embolus 789685041 Z86.711 on xarelto Peripheral arterial occlusive disease 563296402 I73.9 Mild Cerebrovas cular accident 930347222 I63.9 Ulcer of foot 33791605 L 97.909 [id number] Kishore Gonzalez MD [facility] OFF[facility] [place] [address] 03/11/2017 09:27:46 03/11/2017 14:52:53 Dyslipidemia 748448946 E78.5 Needs to keep LDL less than 70, and HDL more than 40Will get fating lipids for follow up Deep venou s thrombosis 194990629 I82.409 With abnormal doppler, FU duplex Atypical chest pain 1025 47787 R07.89 resolved Venous ins ufficiency of lower limb 975437284 I87.2 s/p brady iliac venous stents She needs to stay on Xarelto History of pulmonary embolus 945837454 Z86.711 on xarelto Peripheral arterial occlusive disease 249605634 I73.9 Mild Cerebrovas cular accident 795882596 I63.9 Ulcer of foot 30925703 L 97.909 Will arrange for cadastral surveyor vein EVLT Edema of l ower extremity 195209055 R60.0 [id number] Kishore Gonzalez MD [facility] OFF[facility] [place] [address] 04/08/2017 09:47:01 04/08/2017 11:34:45 Dyslipidemia 765611719 E78.5 Needs to keep LDL less than 70, and HDL more than 40Will get fating lipids for follow up 09-26-2016 LDL 73 Deep venou s thrombosis 200432100 I82.409 With abnormal doppler US, DUPLEX, LOWER EXTREMITY 10/02/16 : No signficant PVD. Atypical chest pain 1025 83047 R07.89 resolved Venous ins ufficiency of lower limb 179100107 I87.2 s/p brady iliac venous stents She needs to stay on Xarelto History of pulmonary embolus 681687881 Z86.711 on xarelto Peripheral arterial occlusive disease 902989031 I73.9 Mild Cerebrovas cular accident 760513771 I63.9 Ulcer of foot 74857795 L 97.909 Will arrange for cadastral surveyor vein EVLT Edema of l ower extremity 204596383 R60.0 Fluttering heart 6923760 04 R00.2 [id number] Kishore Gonzalez MD [facility] OFF[facility] [place] [address] 05/20/2017 13:43:34 05/20/2017 17:30:42 Venous insufficiency of lower limb 796099303 I87.2 s/p brady iliac venous stents She needs to stay on Xarelto Dyslipidemia 389504924 E 78.5 Needs to keep LDL less than 70, and HDL more than 40Will get fating lipids for follow up 09-26-2016 LDL 73 Deep venou s thrombosis 711329725 I82.409 With abnormal doppler US, DUPLEX, LOWER EXTREMITY 10/02/16 : No signficant PVD. History of pulmonary embolus 989145337 Z86.711 on xarelto Peripheral arterial occlusive disease 479987063 I73.9 Mild Ulcer of foot 29622272 L 97.909 Pt sent to ER for evaluation by Ortho and IV Antibiotic s. [id number] Kishore Gonzalez MD [facility] OFF[facility] [place] [address] 01/27/2018 09:46:10 02/12/2018 17:15:10 Venous insufficiency of lower limb 128007932 I87.2 s/p brady iliac venous stents She needs to stay on Xarelto Venous reflux and Duplex Will need EVLT or sclerother apy for cadastral surveyor vein close to ulcer left leg first Dyslipidemia 527172156 E 78.5 Needs to keep LDL less than 70, and HDL more than 40Will get fating lipids for follow up 09-26-2016 LDL 73 Deep venou s thrombosis 765125223 I82.409 With abnormal doppler US, DUPLEX, LOWER EXTREMITY History of pulmonary embolus 499402880 Z86.711 On xarelto Peripheral arterial occlusive disease 542508038 I73.9 Mild Chronic ulcer of skin 19 660484 L98.499 She has a chronic ulcer to her left lower leg and right posterior lower leg. EVLT to cadastral surveyor vein [id number] Kale Pugh MD [facility] Office [address] [facility] [facility] [place] [address] 02/16/2018 14:17:08 02/16/2018 15:30:54 Edema of lower extremity 857636672 R60.0 Bilateral chronic leg ulcers above medial malleolus bilaterall y reported for 7 years? cadastral surveyor vein close to ulcer on the left on duplex a year agoDuplex veins: DVT studyReflu x vein study bilaterall yPlain x ray tibia and fibula bilaterall y.to r/o osteomyeli tis.Plasti c surgery for possible skin grafting and biopsy form ulcer edges to rule out maliganant transforma tion. Venous ins ufficiency of lower limb 568316875 I87.2 s/p brady iliac venous stents She needs to stay on Xarelto Venous reflux and Duplex Will need EVLT or sclerother apy for cadastral surveyor vein close to ulcer left leg first Dyslipidemia 670268394 E 78.5 Needs to keep LDL less than 70, and HDL more than 40Will get fating lipids for follow up 09-26-2016 LDL 73 Deep venou s thrombosis 451410619 I82.409 With abnormal doppler US, DUPLEX, LOWER EXTREMITY History of pulmonary embolus 545404823 Z86.711 On xarelto Peripheral arterial occlusive disease 210963696 I73.9 Mild Chronic ulcer of skin 19 410765 L98.499 She has a chronic ulcer to her left lower leg and right posterior lower leg. EVLT to cadastral surveyor vein Cerebrovas cular accident 564199599 I63.9 [id number] Kishore Gonzalez MD [facility] OFF[facility] [address] [place] [address] 04/14/2018 10:44:26 04/15/2018 02:16:07 Edema of lower extremity 196165963 R60.0 Bilateral chronic leg ulcers above medial malleolus bilaterall y reported for 7 years ? cadastral surveyor vein close to ulcer on the left on duplex a year ago. Duplex veins: DVT study Reflux vein study bilaterall y Chronic ulcer of skin 19 439267 L98.499 She has a chronic ulcer to her left lower leg and right posterior lower leg. Venous ins ufficiency of lower limb 240095452 I87.2 s/p brady iliac venous stents She needs to stay on Xarelto Venous reflux and Duplex Will need EVLT or sclerother apy for cadastral surveyor vein close to ulcer left leg first Dyslipidemia 980992480 E 78.5 Needs to keep LDL less than 70, and HDL more than 40Will get fating lipids for follow up 09-26-2016 LDL 73 Deep venou s thrombosis 721139895 I82.409 With abnormal doppler US, DUPLEX, LOWER EXTREMITY FU today, R/O DVT History of pulmonary embolus 881928868 Z86.711 On xarelto Peripheral arterial occlusive disease 547658168 I73.9 Mild Cerebrovas cular accident 278826108 I63.9 Contusion of lower leg 68433106 S80.10XA Small petechial bruising to bilateral lower legs. She is on Xarelto and Full Dose ASA Chronic osteomyelitis 40 403996 M86.60 treatment and evaluation by primary care doctor [id number] Kishore Gonzalez MD [facility] OFF[facility] [place] [address] 09/29/2018 14:47:13 09/29/2018 16:08:47 Edema of lower extremity 456694066 R60.0 Bilateral chronic leg ulcers above medial malleolus bilaterall y reported for 7 years On Lasix daily. Chronic ulcer of skin 19 076732 L98.499 Is getting better now Venous ins ufficiency of lower limb 447442683 I87.2 s/p brady iliac venous stents She needs to stay on Xarelto complete 04-14-2018 Had venous doppler on 04/14/18: Negative right-side d venous Doppler study. Limited imaging of right calf veins. Reflex is noted in right popliteal vein. Dyslipidemia 696387925 E 78.5 Needs to keep LDL less than 70, and HDL more than 40Will get fating lipids for follow up 09-26-2016 LDL 73 Deep venou s thrombosis 683423914 I82.409 Had venous doppler on 04/14/18: Negative right-side d venous Doppler study. Limited imaging of right calf veins. Reflex is noted in right popliteal vein. History of pulmonary embolus 877309643 Z86.711 On xarelto Peripheral arterial occlusive disease 647858578 I73.9 Mild Cerebrovas cular accident 810222560 I63.9 at 20 years of age. She was on control at the time and was smoking as well. [id number] Kishore Gonzalez MD [facility] OFF[facility] [address] [place] [address] 08/25/2020 09:58:27 08/25/2020 20:39:45 Venous insufficiency of lower limb 146124179 I87.2 s/p bilateral iliac venous stents ( 7) on Xarelto Venous reflux 04/14/2018 : Negative right-side d venous Doppler study. Limited imaging of right calf veins. Reflex is noted in right popliteal vein. Will repeat venous reflux Chronic ulcer of skin 19 630585 L98.499 Follows with wound clinic and vascular surgery (Dr. Jiménez) Edema of l ower extremity 126481644 R60.0 As aboveConti nue Lasix, low salt diet, and leg elevationO btain echo to evaluate for structural /functiona l disease Dyslipidemia 175728736 E 78.5 Needs to keep LDL less than 70, and HDL more than 40. 018 LDL 69Currentl y not on statin therapy Will get fasting lipids for follow-up Deep venou s thrombosis 559270358 I82.409 As above on Xarelto History of pulmonary embolus 500137379 Z86.711 on Xarelto Cerebrovas cular accident 363578256 I63.9 at 20 years of age without recurrence She was on control at the time as well as smoking. Dyspnea on exertion 6084 5006 R06.09 Lexiscan Myoview stress test, pt can not walk. Has known coronary artery disease, with atypical symptoms now [id number] Pati Ness MD [facility] OFF[facility] [address] [place] [address] 12/22/2020 11:09:57 12/22/2020 11:54:14 Venous insufficiency of lower limb 032821354 I87.2 s/p bilateral iliac venous stents ( 7) on Xarelto Venous reflux 04/14/2018 : Negative right-side d venous Doppler study. Limited imaging of right calf veins. Reflex is noted in right popliteal vein. 11/10/20 VENOUS REFLUX Severe left sided reflux disease noted. Chronic ulcer of skin 19 448220 L98.499 Follows with wound clinic and vascular surgery (Dr. Jiménez) Edema of l ower extremity 535742604 R60.0 As aboveConti nue Lasix, low salt diet, and leg elevationO btain echo to evaluate for structural /functiona l disease Dyslipidemia 140806303 E 78.5 Needs to keep LDL less than 70, and HDL more than 40. 1:TC 146,TG 54,HDL 86,LDL 48.Current ly not on statin therapyWil l get fasting lipids for follow-up Deep venou s thrombosis 652544385 I82.409 As aboveon Xarelto History of pulmonary embolus 781115215 Z86.711 on Xarelto Cerebrovas cular accident 462576989 I63.9 at 20 years of age without recurrence She was on control at the time as well as smoking. Dyspnea on exertion 6084 5006 R06.09 Brinda negative 09/2020 Iliac vein compression syndrome 257496161 I87.1 Consider repeating IVUS 1 VENOUS REFLUX Severe left sided reflux disease noted. [id number] Kishore Gonzalez MD [facility] OFF[facility] [place] [address] 06/08/2021 11:19:19 06/08/2021 12:27:42 Venous insufficiency of lower limb 905683233 I87.2 s/p bilateral iliac venous stents ( 7) on Xarelto Venous reflux 04/14/2018 : Negative right-side d venous Doppler study. Limited imaging of right calf veins. Reflex is noted in right popliteal vein. 11/10/20 VENOUS REFLUX Severe left sided reflux disease noted. Chronic ulcer of skin 19 993482 L98.499 Follows with wound clinic and vascular surgery (Dr. Jiménez) Edema of l ower extremity 615389280 R60.0 As aboveConti nue Lasix, low salt diet, and leg elevationO btain echo to evaluate for structural /functiona l disease Dyslipidemia 910302308 E 78.5 Needs to keep LDL less than 70, and HDL more than 40. 1:TC 146,TG 54,HDL 86,LDL 48.Current ly not on statin therapyWil l get fasting lipids for follow-up Deep venou s thrombosis 478615396 I82.409 As aboveon Xarelto History of pulmonary embolus 962285751 Z86.711 on Xarelto Cerebrovas cular accident 431282809 I63.9 at 20 years of age without recurrence She was on control at the time as well as smoking. Dyspnea on exertion 6084 5006 R06.09 Brinda negative 09/2020 Iliac vein compression syndrome 817551125 I87.1 Consider repeating IVUS 1 VENOUS REFLUX Severe left sided reflux disease noted. Pre-surger y evaluation 053483054 Z01.818 There is no cardiac contraindi cation for the procedure. The planned procedure would be within acceptable risk. Patient may stop taking Xarelto for 2days prior to the procedure. [id number] Kishore Gonzalez MD [facility] OFF[facility] [address] [place] [address] 01/18/2022 11:41:11 01/18/2022 12:37:36 Venous insufficiency of lower limb 174747309 I87.2 s/p bilateral iliac venous stents ( 7) on Xarelto Venous reflux 04/14/2018 : Negative right-side d venous Doppler study. Limited imaging of right calf veins. Reflex is noted in right popliteal vein. 11/10/20 VENOUS REFLUX Severe left sided reflux disease noted. Chronic ulcer of skin 19 227840 L98.499 Has improved but not resolved completely .Calcium of 11.4.Concepc[place] nue to follow with wound clinic and vascular surgery (Dr. Jiménez) Edema of l ower extremity 025605935 R60.0 As aboveConti nue Lasix, low salt diet, and leg elevationO btain echo to evaluate for structural /functiona l disease Dyslipidemia 093099485 E 78.5 Needs to keep LDL less than 70, and HDL more than 40. 1:TC 146,TG 54,HDL 86,LDL 48.Current ly not on statin therapyWil l get fasting lipids for follow-up Deep venou s thrombosis 963319900 I82.409 As aboveon Xarelto History of pulmonary embolus 133332748 Z86.711 on Xarelto Cerebrovas cular accident 867552034 I63.9 at 20 years of age without recurrence She was on control at the time as well as smoking. Dyspnea on exertion 6084 5006 R06.09 Brinda negative 09/2020 Iliac vein compression syndrome 770768819 I87.1 Venous duplex and reflux studyCompr ession stockings trial 11/10/20 VENOUS REFLUX Severe left sided reflux disease noted. [id number] Kishore Gonzalez MD [facility] OFF[facility] [address] [place] [address] 09/05/2022 15:39:06 09/05/2022 16:47:21 Venous insufficiency of lower limb 954757849 I87.2 s/p bilateral iliac venous stents () on Xarelto Venous reflux 04/14/2018 : Negative right-side d venous Doppler study. Limited imaging of right calf veins. Reflex is noted in right popliteal vein. Chronic ulcer of skin 19 428616 L98.499 Resolved Edema of l ower extremity 881744285 R60.0 As aboveConti nue Lasix, low salt diet, and leg elevationO btain echo to evaluate for structural /functiona l disease Dyslipidemia 460915528 E 78.5 Needs to keep LDL less than 70, and HDL more than 40. 1:TC 146,TG 54,HDL 86,LDL 48.Current ly not on statin therapyWil l get fasting lipids for follow-up Deep venou s thrombosis 825128670 I82.409 As aboveon Xarelto History of pulmonary embolus 552310052 Z86.711 on Xarelto Cerebrovas cular accident [id number] I63.9 at 20 years of age without recurrence She was on control at the time as well as smoking. Dyspnea on exertion 6084 5006 R06.09 Brinda negative 09/2020 Iliac vein compression syndrome 046233777 I87.1 Venous duplex and reflux studyCompr ession stockings trial 11/10/20 VENOUS REFLUX Severe left sided reflux disease noted. 77042 Kishore Gonzalez MD [facility] [address] [place] [address] 09/17/2022 14:08:58 09/17/2022 15:13:19 Venous insufficiency of lower limb 349816557 I87.2 s/p bilateral iliac venous stents ( 7) on Xarelto Venous reflux 04/14/2018 : Negative right-side d venous Doppler study. Limited imaging of right calf veins. Reflex is noted in right popliteal vein. Chronic ulcer of skin 19 456913 L98.499 Resolved Edema of l ower extremity 381051904 R60.0 As aboveConti nue Lasix, low salt diet, and leg elevation Dyslipidemia 173580587 E 78.5 Needs to keep LDL less than 70, and HDL more than 40. 1:TC 146,TG 54,HDL 86,LDL 48.Current ly not on statin therapyWil l get fasting lipids for follow-up Deep venou s thrombosis 393881929 I82.409 As aboveon Xarelto History of pulmonary embolus 072312411 Z86.711 on Xarelto Cerebrovas cular accident 238912876 I63.9 at 20 years of age without recurrence She was on control at the time as well as smoking. 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 85582 Kishore Gonzalez MD [facility] [address] [place] [address] 03/07/2023 10:04:02 12/31/2023 13:17:14 Health Concerns Section Related Observation LastModified by Organization Detai ls LastModified Time None Recorded Concern Status LastModified by Organization Details LastModified Time None Recorded Advance Directives Directive None Recorded Payers Insurance Date Sequence Insurance Name Policy Number Policy Payne Covered Member ID Payne Member ID Guarantor Name 08/14/2023 2 [place] [facility] Racquel Thomas [id number] Racquel [place]agerwood 03/07/2023 1 [place] Racquel Thomas [id number] Racquel Thomas 09/28/2017 PAYMENT PLAN Racquel Thomas 08/14/2023 1 [employer] (MEDICARE REPLACEMENT/AD VANTAGE - PPO) Racquel Thomas [id number] Racquel Hagerwood 03/07/2023 1 [employer] (MEDICARE REPLACEMENT/AD VANTAGE - HMO) Racquel Hagerwood [id number] Racquel Martha 01/04/2025 1 [facility] (MEDICARE REPLACEMENT/AD VANTAGE - HMO) [id number] Racquel Hagerwood [id number] Racquel Lakota 03/07/2023 2 [employer] (MEDICARE REPLACEMENT/AD VANTAGE - HMO) Racquel Hagerwood [id number] Racquel Lak[place] 08/14/2023 1 [facility] (MEDICARE REPLACEMENT HMO) Racquel Hagerwood [id number] Racquel Lakota 08/14/2023 1 BLUE CROSS MEDIC[place] [id number] Racquel Hagerwood [id number] Racquel Hagerwood Notes Date Note Type Note Provider Name and Address Organization Details Recorded Time 06/08/2021 text/html 06/08/21CC : Cardiac follow up, .leg [id number]-frge-gin white woman with a PMH of PE [...] the right patellofemoral compartment. 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 Kishore Gonzalez MD [address] [place], [address], [facility] 01/18/2022 12:38:26 09/05/2022 text/html 09/05/21CC : Cardiac follow up, [id number]-mzcl-hnu white woman with a PMH of PE [...] the right patellofemoral compartment. 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 Kishore Gonzalez MD [address] [place], [address], [facility] 09/17/2022 15:10:39 03/07/2023 text/html no cc Tatyana Jaime [facility], [facility] 12/31/2023 13:17:13 OBGyn Episode No OBEpisode recorded.
--- OUTSIDE RECORDS SUMMARY | 2025-05-24 00:11 | XMS_ITS | Encounter Summary ---
Author Organization [facility] Address [address] [place] [address] Care Team Providers Care Metal Shaping Machine Operator Name Role Phone Nayely Singh MD Primary Care Provider [phone] Encounter Details Date Type Department Care Team [...] file Legal Sex Female 5:41 AM IT SYSTEMS ADMINISTRATOR Gender Identity Not on file Sexual Orientation Not on file documented as of this encounter Plan of Treatment Upcoming Encounters Date Type Department Care Team (Late st Contact Info) Description 05/31/2025 2:30 PM IT SYSTEMS ADMINISTRATOR Office Visit [facility] [place] [address] [place] [address] [address] [place] [address] Sascha Donohue MD [address] [facility] [address] [place] [address] documented as of this encounter Procedures Procedure Name Priority Date/Time Associated Diagnosis Comments XR FOOT 3+ VW LEFT Routine 08/07/2008 6: 50 PM IT SYSTEMS ADMINISTRATOR CBC WITH DIFFERENTIAL Stat 08/07/2008 6:45 PM IT SYSTEMS ADMINISTRATOR SEDIMENTATION RATE Stat 08/07/2008 6: 45 PM IT SYSTEMS ADMINISTRATOR D-DIMER Stat 08/07/2008 6:45 PM IT SYSTEMS ADMINISTRATOR C-REACTIVE PROTEIN Stat 08/07/2008 6: 45 PM IT SYSTEMS ADMINISTRATOR CARBAMAZEPINE LEVEL Stat 08/07/2008 6 :45 PM IT SYSTEMS ADMINISTRATOR COMPREHENSIVE METABOLIC PANEL Stat 08/07/2008 6:45 PM IT SYSTEMS ADMINISTRATOR documented in this encounter Results * XR FOOT 3+ VW LEFT (08/07/2008 6:50 PM IT SYSTEMS ADMINISTRATOR) Anatomical Region Laterality Modality Ankle / Foot Other 08/07/2008 6:50 PM IT SYSTEMS ADMINISTRATOR Narrative 08/07/2008 7:09 PM IT SYSTEMS ADMINISTRATOR [facility] [address] [place], [place] [address] Admit Date: 08/07/2008 RACQUEL THOMAS Sex: F Admit Prov: ER, AUTHORIZED P Date: 1960 Primary Care Prov: CMRN: [id number] [facility]: [address] [place] [address] IMAGING SERVICES Ordering Prov: N/A Accession Number: [id number] Interpretation Exam: Left foot, 3 views on [...] Procedure Note Mayte Bender MD - 08/07/2008 [facility] [address] [place] [address] Admit Date: 08/07/2008 RACQUEL THOMAS Sex: F Admit Prov: ER, AUTHORIZED P Date: 1960 Primary Care Prov: CMRN: [id number] Room: ER-A N: [id number] IMAGING SERVICES Ordering Prov: N/A Interpretation Exam: [...] (ABNORMAL) CBC WITH DIFFERENTIAL (08/07/2008 6:45 PM IT SYSTEMS ADMINISTRATOR) RBC 4.05 3.90 - 4.90 M/uL [facility] MCHC 34.6 31.5 - 35.5 % [facility] MCV 97.8 82.0 - 99.0 fL [facility] HEMOGLOBIN 13.7 11.8 - 14.8 g/dL [facility] RDW 12.8 11.5 - 14.5 % [facility] WBC 6.0 4.0 - 9.8 K/uL [facility] MCH 33.8(H) 27.2 - 32.6 pg [facility] HEMATOCRIT 39.6 35.5 - 44.0 % [facility] RDW-STDEV 44.9 37.1 - 48.7 fL [facility] NEUTROPHILS 58 45 - 70 % [facility] NEUTROPHIL ABSOLUTE 3.42 1.90 - 7.00 K/uL [facility] EOSINOPHILS 4 0 - 7 % [facility] EOSINOPHIL ABSOLUTE 0.22 0.00 - 0.70 K/uL [facility] LYMPHOCYTES 33 16 - 45 % [facility] LYMPHOCYTE ABSOLUTE 1.97 0.70 - 4.50 K/uL [facility] BASOPHILS 0 0 - 2 % [facility] BASOPHILS ABSOLUTE 0.01 0.00 - 0.20 K/uL [facility] MONOCYTES 6 3 - 13 % [facility] MONOCYTE ABSOLUTE 0.33 0.10 - 1.30 K/uL [facility] MPV 10.3 9.3 - 12.4 fL [facility] PLATELETS 163 140 - 350 K/uL [facility] Blood specimen (specimen) 08/07/2008 6:45 PM IT SYSTEMS ADMINISTRATOR 08/07/2008 6:48 PM IT SYSTEMS ADMINISTRATOR Sumit Camargo MD HEMATOLOGY ORDERABLES Edited Performing Organization Address [facility] Phone Number INTERFACE SYSTEM Refer to clinic/hospital department [facility] CLIA# [id number] [address] [place] [address] * SEDIMENTATION RATE (08/07/2008 6:45 PM IT SYSTEMS ADMINISTRATOR) ESR (SEDIMENTATION RATE) 8 0 - 20 mm/hr [facility] Blood specimen (specimen) 08/07/2008 6:45 PM IT SYSTEMS ADMINISTRATOR 08/07/2008 6:48 PM IT SYSTEMS ADMINISTRATOR Sumit Camargo MD HEMATOLOGY ORDERABLES Final Re sult Performing Organization Address [facility] de Phone Number INTERFACE SYSTEM Refer to clinic/hospital department [facility] CLIA# [id number] [address] [place] [address] * CARBAMAZEPINE LEVEL (08/07/2008 6:45 PM IT SYSTEMS ADMINISTRATOR) CARBAMAZEPINE LEVEL 9.4 4.0 - 12.0 ug/mL [facility] Comment:Carbamazepine Toxic Level => 20 ug/mL Blood specimen (specimen) 08/07/2008 6:45 PM IT SYSTEMS ADMINISTRATOR 08/07/2008 6:48 PM IT SYSTEMS ADMINISTRATOR Sumit Camargo MD CHEMISTRY ORDERABLES Final Res ult Performing Organization Address [facility] Phone Number INTERFACE SYSTEM Refer to clinic/hospital department [facility] CLIA# [id number] [address] [place] [address] * (ABNORMAL) D-DIMER (08/07/2008 6:45 PM IT SYSTEMS ADMINISTRATOR) D-DIMER QUANT 0.52(H) <=0.42 ug/mL FEU [facility] Comment: DVT Screen reference range <0.45 [...] stratification. Blood specimen (specimen) 08/07/2008 6:45 PM IT SYSTEMS ADMINISTRATOR 08/07/2008 6:48 PM IT SYSTEMS ADMINISTRATOR Sumit Camargo MD HEMATOLOGY ORDERABLES Final Re sult Performing Organization Address [facility] Phone Number INTERFACE SYSTEM Refer to clinic/hospital department [facility] CLIA# [id number] [address] [place] [address] * C-REACTIVE PROTEIN (08/07/2008 6:45 PM IT SYSTEMS ADMINISTRATOR) [facility] CRP <0.2 0.0 - 0.8 mg/dL [facility] Blood specimen (specimen) 08/07/2008 6:45 PM IT SYSTEMS ADMINISTRATOR 08/07/2008 6:48 PM IT SYSTEMS ADMINISTRATOR Sumit Camargo MD CHEMISTRY ORDERABLES Final Res ult Performing Organization Address [facility] Phone Number INTERFACE SYSTEM Refer to clinic/hospital department [facility] CLIA# [id number] [address] [place] [address] * (ABNORMAL) COMPREHENSIVE METABOLIC PANEL (08/07/2008 6:45 PM IT SYSTEMS ADMINISTRATOR) POTASSIUM 3.6 3.5 - 4.9 mmol/L [facility] TOTAL PROTEIN 7.0 6.3 - 8.6 g/dL [facility] GLUCOSE 79 65 - 99 mg/dL [facility] AST 21 12 - 32 U/L [facility] BUN 8 6 - 20 mg/dL [facility] CALCIUM 9.9 8.6 - 10.2 mg/dL [facility] ALBUMIN 4.3 3.4 - 4.8 g/dL [facility] CHLORIDE 104 96 - 108 mmol/L [facility] CREATININE 0.55 0.51 - 0.95 mg/dL [facility] ALT 16 0 - 31 U/L [facility] SODIUM 137 135 - 145 mmol/L [facility] ALKALINE PHOSPHATASE 112(H) 35 - 104 U/L [facility] CO2 26 22 - 30 mmol/L [facility] BILIRUBIN TOTAL 0.4 0.2 - 1.0 mg/dL [facility] GFR, >60 >=60 mL/min/1. 7 sq meter [facility] GFR >60 >=60 mL/min/1. 7 sq meter [facility] Comment: Modification of Diet in Renal Disease (MDRD) study formula. Estimated GFR rate interpretative information for both Americans and non- Americans is available on the [facility] Intranet at: [email or web address] Select: Lab Policies and Procedures Select: Reference Ranges - GFR Blood specimen (specimen) 08/07/2008 6:45 PM IT SYSTEMS ADMINISTRATOR 08/07/2008 6:48 PM IT SYSTEMS ADMINISTRATOR us Sumit Camargo MD CHEMISTRY ORDERABLES Edited INTERFACE SYSTEM Refer to clinic/hospital department [facility] CLIA# [id number] [address] [address] documented in this encounter Visit Diagnoses Not on filedocumented in this encounter Care Teams Metal Shaping Machine Operator Relationship Specialty Start Date End Date Nayely Singh MD [address] [place] [address] PCP - General Family Practice 12/10/23 documented as of this encounter
[2025-05-24 08:16] VITALS: BP 104/37; PULSE 71; RESP 15; TEMP 36.9; O2SAT 100
[2025-05-24 09:02] LABS: Hematocrit 22.0 % (37.0-47.0); Hemoglobin 7.0 g/dL (12.0-15.0); Immature Granulocyte Percent A 0.6 % (0-0.5); Lymphocytes Absolute Auto 0.36 K/mm3 (0.9-3.2); Mean Corpuscular HGB Conc 31.8 g/dl (32-36); Mean Corpuscular Hemoglobin 37.4 pg (26-34); Mean Corpuscular Volume 117.6 fl (80-100); Nucleated Red Blood Cells Absolute Auto 0.000 K/mm3 (0.0-0.012); Nucleated Red Blood Cells Perc 0.0 % (0.0-0.2); Platelet Count Result 154 k/mm3 (150-375); Red Blood Count 1.87 M/mm3 (4.2-5.4); White Blood Count 5.1 K/mm3 (4.5-10.0)
[2025-05-24 09:14] LABS: INR 1.7; Prothrombin Time 19.2 Seconds (11.1-14.7)
[2025-05-24 09:26] LABS: Anisocytosis Occasional; Hypochromasia Occasional; Macrocytosis 1+ (NORMAL)
[2025-05-24 09:27] LABS: Ovalocytes 1+; Schistocytes Occasional; Stomatocytes Occasional
--- NOTE | 2025-05-24 09:36 | WPDMODSED ---
Moderate Sedation Note-Pt Data Patient Data Diagnosis: chronic anemia Present Complaint: anemia Procedure to be performed/Plan: bone marrow biopsy Allergies Allergy/AdvReac Type Severity Reaction Status Date / Time No Known Allergies Allergy Verified 05/24/25 08:06 Home Medications ?Medication ?Instructions ?Recorded ?Confirmed ?Type ferrous sulfate 324 mg (65 mg 324 mg PO BID 02/13/24 05/23/25 History iron) tablet,delayed release oxycodone 30 mg tablet 30 mg PO DAILY PRN Pain (Scale 02/13/24 05/23/25 History Score 7-10) mecobalamin (vitamin B12) 5,000 5,000 mcg PO DAILY 02/27/24 05/23/25 History mcg chewable tablet methadone 10 mg tablet 30 mg PO DAILY 07/23/24 05/24/25 History rivaroxaban 20 mg tablet (Xarelto) 20 mg PO DAILY #90 tabs 09/24/24 05/23/25 Rx cholecalciferol (vitamin D3) 25 25 mcg PO DAILY 10/28/24 05/23/25 History mcg (1,000 unit) capsule colostomy bags #15 ea 10/28/24 02/24/25 Rx furosemide 40 mg tablet 40 mg PO DAILY #90 tabs 10/28/24 05/23/25 Rx ostomy supplies 4 X 4 wafer #30 wafers 10/28/24 02/24/25 Rx tamoxifen 20 mg tablet 20 mg PO DAILY 11/12/24 05/23/25 History biotin 1 mg capsule 1 mg PO DAILY 12/29/24 05/23/25 History montelukast 10 mg tablet 10 mg PO QPM #90 tabs 02/23/25 05/23/25 Rx doxycycline hyclate 100 mg capsule 100 mg PO BID 05/23/25 05/23/25 History Sedation/Anesthesia: No previous sedation/anesthesia problems (including family history). 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 Residual left-sided weakness. Invasive ductal carcinoma of right breast, stage 3 Chronic pain syndrome Chronic back pain and lower extremity pain due to venous stasis ulcers. On long-term opioids and medical marijuana. Inflammatory bowel disease Seizure disorder Cerebral aneurysm Status post coiling. Surgical History Surgical History History of colostomy History of craniotomy Related to cerebral aneurysm rupture and hemorrhagic stroke at the age of 20. History of 2 sections History of hysterectomy Status post coil embolization of cerebral aneurysm Family History Family History Mother Diabetes mellitus Sibling Diabetes mellitus Cervical cancer Sibling Leukemia Sibling Lung cancer Sibling Liver cancer Sibling Lung cancer Other Family history of arthritis Family history of cancer Social History Social History Social History: Surrogate decision maker: Seymour Urias, . Code status: Full code. Smoking packs per day: 2 Smoking cigarettes per day: 40.0 Years smoked: 5 Smoking pack-years: 10.00 Smoking status: Former smoker Tobacco type: cigarettes Alcohol intake: never Substance use: former Substance use type: does not use and marijuana Do You Feel Safe in your Home?: Yes Lack of Transportation: No Lack of Food: Never True Current Housing: I Have Housing Concerned About Future Housing: No Difficulty Paying Gas/Electric Bills: No Difficulty Paying for Meds: No Currently Unemployed: No Education: Decline to Answer Difficulty w/ Childcare or Family Care: No Living arrangements: with roommate(s) Additional living arrangements comments: Resides in [place] with her . Additional occupation/education comments: Disabled. Spiritual care concerns: No Mod Sed Physical Exam Physical Exam Pre Procedural Exam: Normal: Throat, Lungs, Heart Rate and Heart Rhythm and Variation: Abdomen (colostomy) Hours since solid foods: 10 Hours since liquid intake: 10 Mallampati Classification: class II Internal Medicine - PN: Obj Da Vital Signs Vital Signs: Vital Signs - 24 hr 05/24/25 08:16 Temperature 98.5 F Pulse Rate 71 Respiratory Rate 15 Blood Pressure 104/37 L Pulse Oximetry 100 Oxygen Delivery Room Air Labs 05/24/25 08:58 Labs: Laboratory Results - last 24 hr 05/24/25 08:58 WBC 5.1 RBC 1.87 L Hgb 7.0 L Hct 22.0 L MCV 117.6 H MCH 37.4 H MCHC 31.8 L RDW 21.9 H Plt Count 154 MPV 10.2 Immature Gran % (Auto) 0.6 H Neut % (Auto) 80.2 H Lymph % (Auto) 7.1 L Morrill % (Auto) 8.3 Eos % (Auto) 3.4 Baso % (Auto) 0.4 Lymph # (Auto) 0.36 L Morrill # (Auto) 0.4 Eos # (Auto) 0.2 Baso # (Auto) 0.0 Abs Immat Gran (auto) 0.03 Absolute Neuts (auto) 4.1 Absolute Nucleated RBC 0.000 Nucleated RBC % 0.0 Platelet Estimate Slightly decreased Hypochromasia Occasional Anisocytosis Occasional Macrocytosis 1+ Ovalocytes 1+ Stomatocytes Occasional Schistocytes Occasional PT 19.2 H INR 1.7 ASA Classification/Sedation ASA Classification/Sedation ASA Class: III Emergent: No Risks: Risks, benefits and alternatives explained and patient/family accepted plan for sedation. Patient re-evaluated immediately prior to sedation.
--- NOTE | 2025-05-24 10:00 | BM_PTH ---
PATIENT: Racquel Thomas [id number] AGE/SX: 64/F ROOM: RE05/24/[address]: Sascha Donohue MD : 1960 BED: DIS: 05/24/2025 SPEC #: [id number] RECD: 05/24/25 10:10 STATUS: CAMPBELL REQ #: [id number] TADEO: 05/24/25 10:[address]: Sascha Donohue DEPT: [facility] Bone Marrow RECD BY: Grant Hernandez ENTERED: 05/24/25 10:11 SP TYPE: Bone Carmenro SIM DR: Susan Ayala DO Tissues: A - Bone Marrow Aspiration B - Bone Marrow Biopsy Procedures: Unstained Slides Hematoxylin and Eosin Stain Gross and Microscopic Level 4 Bone Marrow Smear Decalcification Iron Stain
[2025-05-24 10:20] VITALS: BP 119/49; PULSE 73; RESP 18; O2SAT 100
[2025-05-24 10:35] VITALS: BP 118/56; PULSE 75; RESP 15; O2SAT 100
[2025-05-24 10:50] VITALS: BP 124/47; PULSE 71; RESP 14; O2SAT 100
[2025-05-24 11:05] VITALS: BP 120/50; PULSE 70; RESP 12; O2SAT 100
[2025-05-24 11:20] VITALS: BP 123/45; PULSE 72; RESP 16; O2SAT 98
== END 2025-05-24 11:33 | disposition home or self-care (01) ==
PROVIDERS: PCP Family Medicine; Referring Provider Radiology Diagnostic Radiology; Visit Provider Internal Medicine Hematology & Oncology
DX: D64.9 Anemia, unspecified (principal); Z87.891 Personal history of nicotine dependence; Z79.01 Long term (current) use of anticoagulants
CPT/HCPCS: 36415; 38222; 85025; 85610; 88184; 88185; 88305; 88311; 88313; J2250; J3010; J7040

== ENCOUNTER 2025-06-14 07:18 | Inpatient (IN) | payer MEDICARE, MEDICAID, SELFPAY ==
[2025-06-14] VITALS (15 sets, daily range): BP systolic 103–138; BP diastolic 23–83; PULSE 71–87; RESP 12–20; TEMP 36.5–37.3; O2SAT 91–100
--- NOTE | ~2025-06-14 | CT_ITS ---
EXAM/PROCEDURE: CT soft tissue neck w con HISTORY: recent bx; feels airway closed COMPARISON: Cervical spine CT from July 17, 2024 TECHNIQUE: Contrast-enhanced soft tissue neck CT FINDINGS: 6.4 x 4.4 x 3.8 cm right supraclavicular mass with heterogeneous attenuation and centralized areas of hypoattenuation and hypoenhancement possibly representing necrotic lymphadenopathy. Lymphadenopathy extends caudally into the mediastinum off the inferior margin of the field of view. The neck soft tissues appear otherwise normal with retropharyngeal and parapharyngeal spaces normal. Fossae of Rosenmuller are symmetric and normal. Vascular structures are patent. The airway is patent. Diffuse degenerative changes throughout the bones not grossly changed. No acute process seen in the visualized portions of the intracranial contents. Old infarction in the right parietal hemisphere. IMPRESSION: Extensive lymphadenopathy which appears to be necrotizing in the right supraclavicular region and extending into the mediastinum below the field of view. Other findings as above. Reviewed, dictated and finalized at location A. OSION CONTROL FITTER IMPRESSION: Extensive lymphadenopathy which appears to be necrotizing in the right supracla vicular region and extending into the mediastinum below the field of view. Othe r findings as above.
--- NOTE | ~2025-06-14 | CT_ITS ---
EXAMINATION: CTA chest PE protocol DATE: 06/14/2025 09:59 INDICATION: Rule out PE TECHNIQUE: Computed tomography angiography (CTA) of the chest was performed with 100 mL Omnipaque-350 intravenous contrast timed to evaluate the pulmonary arteries. Coronal maximum intensity projection 3D-reconstructions were created by the technologist. The dose-length product was 289.17 mGy-cm. COMPARISON: None. FINDINGS: No pulmonary emboli or thoracic aortic aneurysm/dissection. Bulky lymphadenopathy has developed throughout the mid and superior mediastinum, encasing almost the entire vascular pedicle and extending into both hilar regions, also again extending about the vascular structures but no arterial mass effect. The venous structures are limited in evaluation due to contrast bolus timing, however size of the SVC appears normal. Left subclavian transvenous pacemaking wires extend into the right heart which is borderline enlarged. Trace pericardial effusion. Numerous nodules throughout both lung kelley. No consolidation effusion or pneumothorax. The tracheal air column is patent. Strandy changes probably representing minimal mucus present. Mainstem bronchi and smaller bronchovascular opacities also appear patent. Bones appear intact. Mild splenomegaly with extensive splenic and hepatic calcified granuloma. Apparent left-sided mastectomy surgical changes. 3 cm mass in the right breast soft tissues, image 66 series 3. IMPRESSION: 1. Extensive malignant-appearing lymphadenopathy throughout the mediastinum, and numerous bilateral lung nodules consistent with advanced metastatic disease. The vascular pedicle is almost completely encased in lymphadenopathy/tumor. Airway and arterial structures are patent. 2. No pulmonary emboli or thoracic aortic aneurysm/dissection. 3. 3 cm mass in the right breast soft tissues. Reviewed, dictated and finalized at location A. LICTS ANALYST IMPRESSION: 1. Extensive malignant-appearing lymphadenopathy throughout the mediastinum, an d numerous bilateral lung nodules consistent with advanced metastatic disease. The vascular pedicle is almost completely encased in lymphadenopathy/tumor. Air way and arterial structures are patent. 2. No pulmonary emboli or thoracic aortic aneurysm/dissection. 3. 3 cm mass in the right breast soft tissues.
--- NOTE | 2025-06-14 07:57 | ED.NECK ---
HPI - Neck Pain/Injury General Chief Complaint: Neck Pain/Injury Stated Complaint: post op pain, sore throat, neck pain Time Seen by Provider: 06/14/25 07:33 History of Present Illness HPI Narrative: Patient with history of stage IV breast cancer with recent right supraclavicular lymph node biopsy 1.5 weeks ago presents here with difficulty and pain with swallowing, also feels like it is hard to speak. Has been ongoing since the procedure but it did not get better Related Data Home Medications ?Medication ?Instructions ?Recorded ?Confirmed ?Last Taken ?Type ferrous sulfate 324 mg (65 mg 324 mg PO BID 02/13/24 05/23/25 Unknown History iron) tablet,delayed release oxycodone 30 mg tablet 30 mg PO DAILY PRN Pain (Scale 02/13/24 05/23/25 Unknown History Score 7-10) mecobalamin (vitamin B12) 5,000 5,000 mcg PO DAILY 02/27/24 05/23/25 Unknown History mcg chewable tablet methadone 10 mg tablet 30 mg PO DAILY 07/23/24 05/24/25 05/24/25 History cholecalciferol (vitamin D3) 25 25 mcg PO DAILY 10/28/24 05/23/25 Unknown History mcg (1,000 unit) capsule tamoxifen 20 mg tablet 20 mg PO DAILY 11/12/24 05/23/25 05/22/25 History biotin 1 mg capsule 1 mg PO DAILY 12/29/24 05/23/25 05/23/25 History doxycycline hyclate 100 mg capsule 100 mg PO BID 05/23/25 05/23/25 05/23/25 History Allergies Allergy/AdvReac Type Severity Reaction Status Date / Time No Known Allergies Allergy Verified 06/14/25 13:47 Review of Systems Review of Systems: All systems reviewed & are unremarkable except as noted in HPI and below PMFSH Past Medical History Medical History (Updated 06/14/25 @ 13:02 by Faye Rahman MD) Allergic rhinitis CAD (coronary artery disease) 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 Residual left-sided weakness. Invasive ductal carcinoma of right breast, stage 3 Chronic pain syndrome Chronic back pain and lower extremity pain due to venous stasis ulcers. On long-term opioids and medical marijuana. Inflammatory bowel disease Seizure disorder Cerebral aneurysm Status post coiling. Surgical History Surgical History History of colostomy History of craniotomy Related to cerebral aneurysm rupture and hemorrhagic stroke at the age of 20. History of 2 sections History of hysterectomy Status post coil embolization of cerebral aneurysm Family History Family History Mother Diabetes mellitus Sibling Diabetes mellitus Cervical cancer Sibling Leukemia Sibling Lung cancer Sibling Liver cancer Sibling Lung cancer Other Family history of arthritis Family history of cancer Social History Social History Social History: Surrogate decision maker: Seymour Urias, . Code status: Full code. Smoking packs per day: 2 Smoking cigarettes per day: 40.0 Years smoked: 5 Smoking pack-years: 10.00 Smoking status: Former smoker Tobacco type: cigarettes Alcohol intake: never Substance use: former Substance use type: does not use and marijuana Lack of Transportation: No Lack of Food: Never True Current Housing: I Have Housing Concerned About Future Housing: No Difficulty Paying Gas/Electric Bills: No Difficulty Paying for Meds: No Currently Unemployed: No Education: Decline to Answer Difficulty w/ Childcare or Family Care: No Living arrangements: with roommate(s) Additional living arrangements comments: Resides in [place] with her . Additional occupation/education comments: Disabled. Spiritual care concerns: No Exam Narrative: EXAMINATION OF ORGAN SYSTEMS/BODY AREAS: Constitutional: Vital signs per nursing GENERAL: Appears very tired HEAD: Normal with no signs of head trauma. EYES: EOMI, conjunctiva normal ENT: Dry mucous membranes, no obvious airway obstruction, speaking in a whisper, no trismus LUNGS: Nonlabored breathing. HEART: Regular rate and rhythm ABD: Soft, nontender to palpation EXT: Normal range of motion SKIN: Raised large supraclavicular lymph node NEURO: Alert. No gross focal sensory or strength deficits. PSYCH: Normal affect Course Vital Signs Vital signs: Vital Signs Temperature 98.0 F 06/14/25 07:13 Pulse Rate 79 06/14/25 07:13 Respiratory Rate 12 06/14/25 07:13 Blood Pressure 105/53 L 06/14/25 07:13 Pulse Oximetry 100 06/14/25 07:13 Oxygen Delivery Room Air 06/14/25 07:13 Temperature 97.8 F 06/14/25 14:57 Pulse Rate 81 12/16/25 14:57 Respiratory Rate 15 06/14/25 14:57 Blood Pressure 120/47 L 06/14/25 14:57 Pulse Oximetry 92 06/14/25 14:57 Oxygen Delivery Room Air 06/14/25 07:13 [facility] Narrative Medical decision making narrative: Patient presenting with worsening pain with swallowing, difficulty speaking also. On exam patient does appear uncomfortable, does have a large palpable lymph node, airway does appear intact, though she is whispering. CT neck showing no airway involvement but large mass, I did then obtain a CT PE, no PE but it does extend past her mediastinum, with likely metastasis into lungs. I did discuss the findings with the patient and at bedside. She initially started crying and stated she did not want any further treatment, she just wanted to have her pain under control. After some further discussion, with , and after I did speak with Dr. Donohue her oncologist, he did recommend transfusing her a unit here, and close follow-up outpatient to plan for possible radiation therapy. At this time, patient is not interested in radiation therapy, will therefore admit for pain control, and palliative care/hospice referral. Differential Diagnosis Differential Diagnosis: Metastatic cancer, with airway involvement, dehydration, etc. Lab Data 06/14/25 08:18 06/14/25 08:18 Labs: Lab Results 06/14/25 06/14/25 Range/Units 08:18 12:18 WBC 7.2 (4.5-10.0) K/mm3 RBC 2.07 L (4.2-5.4) M/mm3 Hgb 7.7 L (12.0-15.0) g/dL Hct 24.2 L (37.0-47.0) % MCV 116.9 H (80-100) fl MCH 37.2 H (26-34) pg MCHC 31.8 L (32-36) g/dl RDW 22.7 H (11.5-14.5) % Plt Count 168 (150-375) k/mm3 MPV 10.1 (7.4-10.4) fl Immature Gran % (Auto) 0.3 (0-0.5) % Neut % (Auto) 86.0 H (45.5-73.1) % Lymph % (Auto) 3.7 L (18.3-44.2) % Emanuel % (Auto) 7.5 (2.6-8.5) % Eos % (Auto) 1.9 (0-4.4) % Baso % (Auto) 0.6 (0.2-1.2) % Lymph # (Auto) 0.27 L (0.9-3.2) K/mm3 Emanuel # (Auto) 0.5 (0.1-0.6) K/mm3 Eos # (Auto) 0.1 (0-0.3) K/mm3 Baso # (Auto) 0.0 (0.0-0.1) K/mm3 Abs Immat Gran (auto) 0.02 (0.00-0.031) K/mm3 Absolute Neuts (auto) 6.2 (1.3-6.7) K/mm3 Absolute Nucleated RBC 0.020 H (0.0-0.012) K/mm3 Band Neutrophils % Not Reportable Nucleated RBC % 0.3 H (0.0-0.2) % Platelet Estimate Adequate (Adequate) Hypochromasia 2+ Anisocytosis 2+ Target Cells Occasional Ovalocytes 1+ Acanthocytes (Spur) 1+ Schistocytes Occasional Sodium 139 (137-145) mmol/L Potassium 3.6 (3.4-5.0) mmol/L Chloride 105 (98-107) mmol/L Carbon Dioxide 28 (22-30) mmol/L Anion Gap 6 (4-12) mmol/L BUN 10 (7-17) mg/dL Creatinine 0.69 L (0.7-1.0) mg/dL Estim Creat Clear Calc 63 ml/min Estimated GFR > 60 (59 - ) Glucose 103 (65-110) mg/dL Lactic Acid 1.0 (0.7-2.0) mmol/L Calcium 9.8 (8.4-10.2) mg/dL Total Bilirubin 1.8 H (0.2-1.3) mg/dL AST 50 H (14-36) U/L ALT 13 (6-35) U/L Alkaline Phosphatase 148 H (38-126) U/L Total Protein 7.0 (6.3-8.2) g/dL Albumin 3.3 L (3.5-5.1) g/dL Blood Type A Positive Antibody Screen Negative Crossmatch See Detail Imaging Data Radiologist's impression: ITS Impressions Soft Tissue Neck CT 06/14/25 09:14 IMPRESSION: Extensive lymphadenopathy which appears to be necrotizing in the right supraclavicular region and extending into the mediastinum below the field of view. Other findings as above. Chest CTA 06/14/25 10:01 IMPRESSION: 1. Extensive malignant-appearing lymphadenopathy throughout the mediastinum, and numerous bilateral lung nodules consistent with advanced metastatic disease. The vascular pedicle is almost completely encased in lymphadenopathy/tumor. Airway and arterial structures are patent. 2. No pulmonary emboli or thoracic aortic aneurysm/dissection. 3. 3 cm mass in the right breast soft tissues. Discharge Plan Discharge Clinical Impression: Metastatic cancer Patient Disposition: Still a Patient Condition: Serious
[2025-06-14] MEDS: LACTATED RINGERS 1,000 ML 999 ML IV CONT ×2 (08:25→11:18)
[2025-06-14 08:26] LABS: Hematocrit 24.2 % (37.0-47.0); Hemoglobin 7.7 g/dL (12.0-15.0); Immature Granulocyte Percent A 0.3 % (0-0.5); Lymphocytes Absolute Auto 0.27 K/mm3 (0.9-3.2); Mean Corpuscular HGB Conc 31.8 g/dl (32-36); Mean Corpuscular Hemoglobin 37.2 pg (26-34); Mean Corpuscular Volume 116.9 fl (80-100); Nucleated Red Blood Cells Absolute Auto 0.020 K/mm3 (0.0-0.012); Nucleated Red Blood Cells Perc 0.3 % (0.0-0.2); Platelet Count Result 168 k/mm3 (150-375); Red Blood Count 2.07 M/mm3 (4.2-5.4); White Blood Count 7.2 K/mm3 (4.5-10.0)
[2025-06-14 08:45] LABS: Acanthocytes 1+; Anisocytosis 2+; Hypochromasia 2+; Ovalocytes 1+; Schistocytes Occasional; Target Cells Occasional
[2025-06-14 08:54] LABS: Alanine Aminotransferase 13 U/L (6-35); Albumin Level 3.3 g/dL (3.5-5.1); Alkaline Phosphatase 148 U/L (38-126); Anion Gap 6 mmol/L (4-12); Aspartate Amino Transferase 50 U/L (14-36); Bilirubin,Total 1.8 mg/dL (0.2-1.3); Blood Urea Nitrogen 10 mg/dL (7-17); Calcium 9.8 mg/dL (8.4-10.2); Carbon Dioxide 28 mmol/L (22-30); Chloride 105 mmol/L (98-107); Estimated CRCL calculation 63 ml/min; Estimated Glomerular Filt Rate > 60; Glucose 103 mg/dL (65-110); Potassium 3.6 mmol/L (3.4-5.0); Sodium 139 mmol/L (137-145); Total Protein 7.0 g/dL (6.3-8.2)
--- OUTSIDE RECORDS SUMMARY | 2025-06-14 09:51 | XMS_ITS | Clinical Summary ---
Author Organization [facility] Address [address] [address] Care Team Providers Care Operators School Manager Name Role Phone Nayely Singh MD Primary Care Provider [phone] Allergies No known active allergies Medications oxyCODONE [...] Singh MD Referring Provider: Sascha Donohue MD [address] [facility] [facility] [employer] [address] [place] [address] Other: Dr. Benita Maki MD Problem Noted Date Diagnosed Date Protein-calorie malnutrition, severe 06/15/2024 Malignant neoplasm of upper- outer quadrant of right breast in female, estrogen receptor positive 02/23/2024 Cancer Staging:Clinical stage from 02/19/2024:Stage IIIB(cT3, cN1, cM0, G3, ER+, TN-, HER2-) - Signed by Benita Maki MD on 02/23/2024 Pathologic stage from 06/14/2024: ypT2, ypN1a, cM0, G3, ER+, TN-, HER2- - Signed by Benita Maki MD on 07/02/2024 Coronary artery disease invo lving [place] coronary artery of [place] heart without angina pectoris 05/23/2023 Hyperlipidemia, unspecified 05/18/2023 Personal history of other venous thrombosis and embolism 05/18/2023 S/P IVC filter 12/25/2016 Brain aneurysm 11/25/2016 H/O colectomy 11/25/2016 History of heart artery stent 11/25/2016 History of seizures 11/25/2016 History of cerebrovascular accident 11/22/2016 History of pulmonary embolism 10/19/2016 Peripheral arterial occlusive disease 10/19/2016 Encounters Date Type Department Care Team Description 06/14/[address] [facility] [place] [address] [place] [address] Sascha Donohue MD Malignant neoplasm of lower-outer quadrant of right breast of female, estrogen receptor positive (CMS/HCC) (Primary Dx) 06/10/[address] [facility] [place] [address] [place] [address] Sascha Donohue MD 06/06/2025 Orders [facility] - [place] [address] Sascha Donohue MD Malignant neoplasm of lower-outer quadrant of right breast of female, estrogen receptor positive (CMS/HCC) (Primary Dx) 06/01/[address] [facility] [place] [address] [place] [id number] Sascha Donohue MD 05/31/2025 2:30 PM PROGRAM ARRANGER Office Visit [facility] [place] [address] Sascha Donohue MD Malignant neoplasm of lower-outer quadrant of right breast of female, estrogen receptor positive (CMS/HCC) (Primary Dx) 05/31/[address] [facility] [place] [address] [place] [id number] Sascha Donohue MD 05/24/2025 External Device Data STL ABSTRACTION Provider, Abstract 05/24/[address] [facility] [place] [address] [place] [id number] Sascha Donohue MD 05/23/[address] [facility] [place] [address] [place] [id number] Sascha Donohue MD Malignant neoplasm of lower-outer quadrant of right breast of female, estrogen receptor positive (CMS/HCC) 05/20/2025 Orders Only [facility] [place] [address] [place] [id number] Sascha Donohue MD 05/13/[address] [facility] [place] [address] [place] [address] Sascha Donohue MD 05/11/[address] [facility] [place] [address] Sascha Donohue MD Acquired hemolytic anemia (CMS/HCC) (Primary Dx); Malignant neoplasm of lower-outer quadrant of right breast of female, estrogen receptor positive (CMS/HCC) 05/10/[address] [facility] - [place] [address] Sascha Donohue MD 05/09/[address] [facility] - [place] [address] Sascha Donohue MD Malignant neoplasm of lower-outer quadrant of right breast of female, estrogen receptor positive (CMS/HCC) 05/03/2025 External Device Data STL ABSTRACTION Provider, Abstract 04/29/[address] [facility] [place] [address] Sascha Donohue MD 04/25/[address] [facility] [place] [address] Sascha Donohue MD Chronic anemia; Malignant neoplasm of lower-outer quadrant of right breast of female, estrogen receptor positive (CMS/HCC) 04/22/[address] [facility] [place] [address] [place] [phone] Sascha Donohue MD [employer] [facility] 04/21/2025 4:30 PM CDT Telephone Check Up [facility] [place] [address] [place] [phone] Sascha Donohue MD Chronic anemia (Primary Dx); Malignant neoplasm of lower-outer quadrant of right breast of female, estrogen receptor positive (CMS/HCC) 04/20/2025 External Device Data STL ABSTRACTION Provider, Abstract 04/14/[address] [facility] [place] [address] [place] [address] Sascha Donohue MD 04/13/2025 Orders [facility] - [place] [address] Sascha Donohue MD 04/11/2025 Orders Only [facility] - [place] [address] Sascha Donohue MD Malignant neoplasm of lower-outer quadrant of right breast of female, estrogen receptor positive (CMS/HCC) 04/07/[address] [facility] - [place] [address] Sascha Donohue MD 04/05/2025 Abstract [facility] - [place] [address] Sascha Donohue MD 03/28/2025 Orders Only [facility] [place] [address] Sascha Donohue MD Malignant neoplasm of lower-outer quadrant of right breast of female, estrogen receptor positive (CMS/HCC) 03/25/2025 Orders Only [facility] [place] [address] Sascha Donohue MD 03/24/2025 Orders Only [facility] [place] [address] Sascha Donohue MD 03/21/2025 Orders Only [facility] [place] [address] [place] [phone] Sascha Donohue MD 03/17/2025 2:00 PM CDT Office Visit [facility] [place] [address] [place] [address] Sascha Donohue MD Malignant neoplasm of lower-outer quadrant of right breast of female, estrogen receptor positive (CMS/HCC) (Primary Dx); Chronic anemia from Last 3 Months Family History Medical [...] Used Date Smoking Tobacco: Former Cigarettes 1 1 979 - 1999 Smokeless Tobacco: Never [...] on file Legal Sex Female 5:41 AM PROGRAM ARRANGER Gender Identity Not on file Sexual Orientation Not on file Last Filed Vital Signs Vital Sign Reading Time Taken Comments Blood Pressure 112/53 05/31/2025 2:44 PM PROGRAM ARRANGER Pulse 67 05/31/2025 2:41 PM PROGRAM ARRANGER Temperature 36.8 C (98.3 F) 05/31/2025 2:41 PM PROGRAM ARRANGER Respiratory Rate 16 05/31/2025 2:41 PM PROGRAM ARRANGER Oxygen Saturation 90% 05/31/2025 2:41 PM PROGRAM ARRANGER Inhaled Oxygen Concentration - - Weight 64.1 kg (141 lb 6.4 oz) 05/31/2025 2:41 P M PROGRAM ARRANGER Height 177.8 cm (5' 10) 08/06/2024 9:32 AM PROGRAM ARRANGER Body Mass Index 20.29 08/06/2024 9:32 AM PROGRAM ARRANGER Plan of Treatment Upcoming Encounters Date Type Department Care Team (Late st Contact Info) Description 06/15/2025 4:30 PM PROGRAM ARRANGER Telephone Check Up [facility] [place] [address] [facility] [address] [place] [address] Sascha Donohue MD [address] [facility] [address] [place] [address] Health Maintenance Due Date Last Done Comments HPV/Cotest (-) 1983 CERVICAL CANCER SCREENING 1992 HPV/Cotest (-) 1992 PAP SMEAR 1992 FIT-DNA Q 3 years 2007 FIT/FOBT Q 1 year 2007 Flex Sig/CT Colonography Q 5 years 2007 RSV VACCINE (60+ or ) (1 - Risk 50-74 years 1-dose series) 2012 ZOSTER VACCINE (2 of 2) 09/19/2022 07/25/2022 BREAST CANCER SCREENING 02/12/2024 02/11/2023 Medicare Advantage (ID) Prev entative Visit/Annual Wellness Visit 06/30/2024 INFLUENZA VACCINE (#1) 2025 05/20/2023 COVID-19 Vaccine (2024- season) 2025 06/03/2023, 08/04/2021, 01/02/2021 COLORECTAL SCREENING 11/25/2026 11/25/2016 Colorectal Cancer Screening 11/25/2026 DTAP/TDAP/TD VACCINES (2 - T d or Tdap) 04/03/2032 04/03/2022 Medical Devices Implanted Type Area Sponge Hooker Device Identifier Shelf Expiration Date Model / Serial / Lot Signal Fitter LigaclBitPass [id number] - [id number] Implanted:Qty : 1 on 06/14/2024 by Benita Maki MD at [facility] Clip Right: Axilla [employer] [id number] / / Agent Hemostat Surgicel 4x8in - [id number] Implanted:Qty : 1 on 06/14/2024 by Benita Maki MD at [facility] Hemostatic Right: Breast [employer] 06/29/20282S / / [id number] Procedures Procedure Name Priority Date/Time Associated Diagnosis Comments CBC WITH AUTODIFFERENTIAL Routine 05/31/2025 12:28 PM PROGRAM ARRANGER BONE MARROW ASPIRATION & BIOPSY Routine 05/24/2025 12:57 PM PROGRAM ARRANGER CBC WITH AUTODIFFERENTIAL Routine 05/23/2025 1:56 PM PROGRAM ARRANGER CBC WITH AUTODIFFERENTIAL Routine 05/19/2025 7:57 AM PROGRAM ARRANGER [facility] HEMAT[facility]IC MALIGNANCY (DNA AND RNA) Routine 05/17/2025 2:41 PM PROGRAM ARRANGER Malignant neoplasm of lower-outer quadrant of right breast of female, estrogen receptor positive (CMS/HCC) Acquired hemolytic anemia (CMS/HCC) CBC WITH AUTODIFFERENTIAL Routine 05/12/2025 7:41 AM PROGRAM ARRANGER PATHOLOGY Routine 05/10/2025 11:09 AM PROGRAM ARRANGER CBC WITH AUTODIFFERENTIAL Routine 05/05/2025 2:04 PM PROGRAM ARRANGER CBC WITH AUTODIFFERENTIAL Routine 04/28/2025 11:48 AM [...] WITH AUTODIFFERENTIAL Routine 03/17/2025 11:08 AM CDT MAMMO 3D ONEAL DIAGNOSTIC BILAT W OR WO CAD Routine 02/11/2023 12:40 PM CDT from Last 3 Months or Most Recently Relevant to Health Maintenance Results * CBC WITH AUTODIFFERENTIAL (05/31/2025 12:28 PM PROGRAM ARRANGER) Only the most recent of10 resultswithin the time period is included. Blood Sascha Donohue MD HEMATOLOGY ORDERABLES Final Res ult * BONE MARROW ASPIRATION AND BIOPSY (05/24/2025 12:57 PM PROGRAM ARRANGER) Bone marrow Sascha Donohue MD PATH/CYTO ORDERABLES COM Final Result * [facility] HEMATOLOGIC MALIGNANCY (DNA AND RNA) (05/17/2025 2:41 PM PROGRAM ARRANGER) Pathologist [facility] [email or web address] 05/17/2025 2:41 PM PROGRAM ARRANGER [facility] Comment:[facility] link Reason for Study To identify somatic and germline mutations relevant to patient's cancer. 05/17/2025 2:41 PM PROGRAM ARRANGER [facility] Genetic Diseases Assessed Cancer 05/17/2025 2:41 PM PROGRAM ARRANGER [facility] Description of Ranges of DNA Sequences Examined 648 gene panel 05/17/2025 2:41 PM PROGRAM ARRANGER [facility] Overall Interpretation positive 05/17/2025 2:41 PM PROGRAM ARRANGER [facility] xR Result 1 NEGATIVE Negative - This report is being issued to report the results of gene rearrangement and altered splicing analysis from RNA sequencing. No gene rearrangements nor reportable altered splicing events were identified from RNA sequencing. 05/17/2025 2:41 PM PROGRAM ARRANGER [facility] Treatment Implications Note No reportable treatment options found. 05/17/2025 2:41 PM PROGRAM ARRANGER [facility] Low Coverage Regions [id number] 05/17/2025 2:41 PM PROGRAM ARRANGER [facility] Blood specimen (specimen) 05/11/2025 3:19 PM PROGRAM ARRANGER Narrative This result has genomic variants that were not included in this document. Sascha Donohue MD MOLECULAR ORDERABLES Edited Res ult - Final [facility] [address], [address] [place] [address], [facility] [address] [facility], [address] [place] [address] * PATHOLOGY (05/10/2025 11:09 AM PROGRAM ARRANGER) Tissue Sascha Donohue MD PATHOLOGY/CYTOLOGY ORDERABLES F inal Result * PET BONE IMG W CT SKB MDTH (04/14/2025 2:29 PM CDT) Anatomical Region Laterality Modality Positron Emissio n Tomography (PET) Sascha Donohue MD PE ORDERABLES Final Result * VITAMIN B12 LEVEL (03/17/2025 12:42 PM CDT) Blood Sascha Donohue MD CHEMISTRY ORDERABLES Final Resu lt * METHYLMALONIC ACID (03/17/2025 12:24 PM CDT) Blood Sascha Donohue MD CHEMISTRY ORDERABLES Final Resu lt * MAMMO 3D ONEAL DIAGNOSTIC BILAT W OR WO CAD (02/11/2023 12:40 PM CDT) Anatomical Region Laterality Modality Breast Bilateral Mammography Abstract Provider MAMMO ORDERABLES Edited Result - Final from Last 3 Months or Most Recently Relevant to Health Maintenance Insurance [place] Member Subscriber Plan / Payer (Ef fective 2023-Present) Name:Racquel Thomas Relation to Subscriber:Self Name:Racquel Thomas Payer ID:Not on file Group ID:Not on file Type:Medicaid Address: [address] [place] Member Subscriber Plan / Payer (Ef fective 2023-Present) Name:Racquel Thomas Relation to Subscriber:Self Name:Racquel Thomas Payer ID:Not on file Group ID:Not on file Type:Medicaid Address: [address] Advance Directives For more information, please contact: [phone] * Full Code (Latest Code Status on File) Date Activated Date Inactivated Comments 06/14/2024 3:40 PM 06/15/2024 3:17 PM * Full Code Date Activated Date Inactivated Comments 06/14/2024 7:46 AM 06/14/2024 3:40 PM Care Teams Operators School Manager Relationship Specialty Start Date End Date Nayely Singh MD [address] [place] [address] PCP - General Family Practice 12/10/23
--- OUTSIDE RECORDS SUMMARY | 2025-06-14 09:51 | XMS_ITS | Encounter Summary ---
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 Eye enterprise applications manager? 0 04/19/2023 3:24 AM CDT Giuliana Rock [...] 1 04/19/2023 2:27 PM Sher Ram RN CARPENTER ROUGH Evaluation Needed 1 04/19/2023 2:27 PM Sher [...] Fritz RN Patient is in need of CARPENTER ROUGH Order: No CARPENTER ROUGH order needed from this assessment 04/19/2023 2:27 PM CDT Sher Fritz RN documented as of this encounter Mental Status * Question Answer Entry Date Author Neuro ([facility]) X 04/21/2023 7:00 AM CDT Мария Ocampo RN * Question Answer Entry Date Author Level of Consciousness Awake;Drowsy 11:40 PM CDT Migdalia Dickens RN Orientation Oriented to person;Oriented to place 04/22/2023 11:40 PM CDT Migdalia Dickens RN Neuro ([facility]) X 04/22/2023 11:40 PM CDT Migdalia Dickens [...] on filedocumented in this encounter Care Teams Glue Mixer Relationship Specialty Start Date End Date Stephanie Singh MD PCP - General Internal Medicine 11/09/18 08/23/24 Susan Ayala DO [address] [place] [id number] PCP - General Family Medicine 08/24/24 documented as of this encounter
--- OUTSIDE RECORDS SUMMARY | 2025-06-14 09:51 | XMS_ITS | Encounter Summary ---
Author Organization [facility] Address [address] [place] [address] Care Team Providers Care Water Resource Engineer Name Role Phone Nayely Singh MD Primary Care Provider [phone] Encounter Details Date Type Department Care Team (Late st Contact Info) Description 06/14/2025 Orders Only [facility] Oncology and Hematology - Familia [address] [facility] [address] [place] [address] Sascha Donohue MD [address] [facility] [address] [place] [address] Malignant neoplasm of lower-outer quadrant of right breast of female, estrogen receptor positive (CMS/HCC) (Primary Dx) Social History Tobacco Use Types Packs/Day Years [...] on file Legal Sex 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 Gender Identity Not on file Sexual Orientation Not on file documented as of this encounter Plan of Treatment Upcoming Encounters Date Type Department Care Team (Late st Contact Info) Description 06/15/2025 4:30 PM SECURITIES BROKER Telephone Check Up [facility] Oncology and Hematology - Fam[facility] [address] [facility] [address] [place] [address] Sascha Donohue MD [address] [facility] [place] [address] Pending Results Name Type Priority Associated Diagnoses Date /Time TEMPUS XT DNA AND RNA Lab Routine Malignant neoplasm of lower-outer quadrant of right breast of female, estrogen receptor positive (CMS/HCC) 06/14/2025 8:04 AM SECURITIES BROKER TEMPUS XT NORMAL BLOOD Lab Routine Malignant neoplasm of lower-outer quadrant of right breast of female, estrogen receptor positive (CMS/HCC) 06/14/2025 8:04 AM SECURITIES BROKER Scheduled Orders Name Type Priority Associated Diagnoses Orde r Schedule MISCELLANEOUS LAB TEST Lab Routine Malignant neoplasm of lower-outer quadrant of right breast of female, estrogen receptor positive (CMS/HCC) Expected: 06/14/2025, Expires: 06/14/2026 TEMPUS XT DNA AND RNA Lab Routine Malignant neoplasm of lower-outer quadrant of right breast of female, estrogen receptor positive (CMS/HCC) Expected: 06/14/2025, Expires: 06/14/2026 TEMPUS XF Lab Routine Malignant neoplasm of lower-outer quadrant of right breast of female, estrogen receptor positive (CMS/HCC) Expected: 06/14/2025, Expires: 06/14/2026 TEMPUS XT DNA AND RNA SOLID TUMOR Lab Routine Malignant neoplasm of lower-outer quadrant of right breast of female, estrogen receptor positive (CMS/HCC) Ordered: 06/14/2025 documented as of this encounter Visit Diagnoses Diagnosis Malignant neoplasm of lower-outer quadrant of right breast of female, estrogen receptor positive (CMS/HCC)- Primary documented in this encounter Care Teams Water Resource Engineer Relationship Specialty Start Date End Date Nayely Singh MD [address] [place] [address] PCP - General Family Practice 12/10/23 documented as of this encounter
--- OUTSIDE RECORDS SUMMARY | 2025-06-14 09:52 | XMS_ITS | Clinical Summary ---
Author Organization [facility] Address [address] [place] [address] Care Team Providers Care Day Care Provider Name Role Phone Susan Ayala DO Primary [...] a day as needed for pain Active Active Problems Problem Noted Date Diagnosed Date Sepsis, due to unspecified o rganism, unspecified whether acute organ dysfunction present 04/14/2025 Gangrene 04/07/2025 Hypotension 01/29/2025 Venous ulcer 01/28/2025 Lower extremity ulceration, left, with fat layer exposed 01/27/2025 Ulcer with gangrene 01/27/2025 Encounter for ostomy nurse consultation 08/22/19 Coronary artery disease invo lving [place] coronary artery of [place] heart without angina pectoris 05/23/2023 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) 05/19/2023 Hyperlipidemia, unspecified 05/18/2023 Peripheral vascular disease 05/18/2023 Pulmonary embolism 05/18/2023 At high risk for malnutrition 04/24/2023 Assessment & Plan (05/17/2023 2:11 PM COOK MAYONNAISE): 04/24 advanced to regular diet yesterday, low [...] 04/22/2023 Assessment & Plan (05/17/2023 2:12 PM COOK MAYONNAISE): 04/22 Reportedly patient presented to OSH from home, baseline function is relatively independent with spousal support and walker vs cane for mobility, case management investigating, anticipate some type of placement when medically stable, PT/OT ordered 04/23 PT recs for inpatient rehab, caseworker protective services notified, ADD 04/25 04/24 patient agreeable to short term IPR placement in [place], [place] area -- case management aware, [facility]KAY[facility] denied [facility] for medical reasons[facility], [facility] --- additional discussions with [...] medical conditions 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 clinic for wound check and staple removal Acute pain 04/22/2023 Assessment & Plan (05/17/2023 2:13 PM COOK MAYONNAISE): 04/22 pain controlled with lidoderm patches and dilaudid IV PRN, passed OPTOMETRIC TECHNICIAN eval today, liberalize to oral multimodal regimen [...] 04/22/2023 Assessment & Plan (05/05/2023 10:42 AM COOK MAYONNAISE): Patient reports symptoms controlled with CBD gummies - low threshold for marinol - zofran, compazine PRN 04/23 start marinol scheduled 04/24 symptoms controlled 04/27-present: No complaints of nausea. 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 SBO r/t parastomal hernia incarceration. --- transferred to [facility] for higher level of care 04/19 OR (Bre/Ronald) - Ex Lap, ANTONETTE, serosal repair x4, reduction of internal hernia, re-do end ileostomy with maturation , RLQ CRISTIANO 04/19 POD 0. 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 Follow up in the next couple of weeks with a venous reflux retail advertising executive study Ulcer of left lower extremity, limited to breakd own of skin 11/17/2018 Assessment & Plan (01/05/2025 11:34 AM CDT): Continue daily dressing changes to the ulceration with Xeroform Kerlix and Sander wrap. Also referring to the wound clinic and [facility] for further evaluation and management follow-up in the next couple of weeks with a venous reflux and retail advertising executive study. S/P IVC filter 12/25/2016 Venous insufficiency of leg 12/12/2016 Assessment & Plan (02/03/2025 1:39 PM CDT): Patient left the hospital AMA after recently undergoing surgical debridement of bilateral ankles. Patient was awaiting disposition from [place] stating she had been told that she [...] who ultimately would be a candidate for retail advertising executive vein ligation to both lower extremities however [...] 10/19/2016 Assessment & Plan (05/16/2023 10:06 AM COOK MAYONNAISE): DVT (2012, on Xarelto, IVC filter) -Last [...] Encounters Date Type Department Care Team Description 06/02/2025 2:30 PM COOK MAYONNAISE Orders Only [facility] 2 Wound Care [address] [place] [address] 05/19/2025 11:30 AM COOK MAYONNAISE Orders Only [facility] 2 Wound Care [address] [place] [address] 05/05/2025 11:15 AM COOK MAYONNAISE Orders Only [facility] 2 Wound Care [address] [place] [address] 04/20/2025 1:22 PM CDT Anesthesia [place] [facility] [place] [address] [place] [address] Vickie Nair MD Taylor-White, Carlotta A. IN FLIGHT CREW MEMBER 04/20/2025 12:46 PM CDT - 04/20/2025 2:26 PM CDT [place] [facility] [place] [address] [place] [address] José Luis Jiménez MD BILATERAL LOWER EXTREMITY DEBRIDEMENT 04/14/2025 2:38 PM CDT - 04/21/2025 12:49 PM CDT Hospital Encounter [facility] [address] [place] [address] Jude Schroeder MD Al Furgani, Mahmud Mustafa, [...] care 04/14/2025 10:30 AM CDT Pre-Admission Testing [facility] PreAdmission Testing [address] [place] [address] Pre-op testing (Primary Dx); Gangrene (HCC) 04/14/2025 8:26 AM CDT - 04/14/2025 11:59 PM CDT Hospital Encounter [facility] [address] [place] [address] Malignant neoplasm of lower-outer quadrant of right female breast, unspecified estrogen receptor status (HCC); Estrogen receptor positive status (ER+) Discharge Disposition: Discharge to home or self care 04/12/2025 Orders Only [facility] PreAdmission Testing [address] [place] [address] Awilda Kennedy RN 04/07/2025 10:45 AM CDT Orders Only [facility] Medical [facility] Building 2 Wound Care [address] [place] [address] 04/07/2025 Telephone [facility] Vascular and Vein Surgery [address] [place] [phone] José Luis Jiménez MD 03/22/2025 2:30 PM CDT Orders Only [facility] Building 2 Wound Care [address] [place] [address] from Last 3 Months Surgical History Surgery [...] often do you attend chur ch or scientology services? Never 01/28/2025 Do you belong to any clubs o r organizations such as jain groups, unions, fraternal or athletic groups, or [...] any time in the past 12 m [facility], were you homeless or living in a snf (including now)? No 01/28/2025 Social Connection and Isolation Panel Answer Date Recorded In a typical week, how many times do you talk on the phone with family, friends, or neighbors? Patient declined 04/15/2025 How often do you get togethe r with friends or relatives? Patient declined 04/15/2025 How often do you attend jain or scientology serv ices? Patient declined 04/15/2025 Do you belong to any clubs o r organizations such as jain groups, unions, fraternal or athletic groups, or [...] any time in the past 12 m [facility], were you homeless or living in a snf (including now)? Patient declined 04/15/2025 [facility] Utilities Answer Date Recorded In the past 12 months has th e [employer], gas, oil, or water [employer] threatened to shut off services in your home? Patient declined 04/15/2025 Personal Safety Answer Date Recorded Have you ever been in or are you currently in a harmful physical or emotional relationship or is someone making you feel afraid or unsafe? Denies 04/14/2025 Comments No Sex and Gender Information Value Date Recorded Sex Assigned at Not on file Legal Sex Female 4:26 AM COOK MAYONNAISE Gender Identity Not on file Sexual Orientation [...] history exists Medical Devices Implanted Type Area Local Company Flatbed Truck Driver Device Identifier Shelf Expiration Date Model / Serial / Lot [employer] Seprafilm 6x5in Barrier Adhesion Sterile Disposable Latex Free [id number] - [id number] Implanted:Qty : 1 on 04/19/2023 by Abran Cardenas DO at [facility] Other - see comments N/A: Abdomen [employer] [id number] 04/25/2024 [id number] / / [id number] [employer] Seprafilm 6x5in Barrier [employer] Sterile Disposable Latex Free [id number] - [id number] Implanted:Qty : 1 on 04/19/2023 by Abran Cardenas DO at [facility] Other - see comments N/A: Abdomen [employer] [id number] 03/27/2024 [id number] / / [id number] Procedures Procedure Name Priority Date/Time Associated [...] GRAM STAIN Routine 04/20/2025 1:56 PM CDT WI AN PROCEDURE PLACEHOLDER Routine 04/20/2025 1:42 PM CDT WI AN ELECTIVE ENDOTRACHEAL AIRWAY Routine 04/20/2025 1:42 [...] BLOOD, FECAL (FIT) Routine 08/26/2013 6:00 AM COOK MAYONNAISE FLEXIBLE SIGMOIDOSCOPY REPORT 07/17/2012 from Last 3 Months or Most Recently Relevant to Health Maintenance Results * (ABNORMAL) Blood smear review (04/21/2025 6:34 AM CDT) RBC morphology Present(A) Anisocytosis Slight(A) KATHIE Macrocytes 3-7/HPF(A) KATHIE Platelet estimate Automated Count Confirmed KATHIE FOY Blood 04/21/2025 6:34 AM CDT 04/21/2025 6:38 AM CDT us Justin Pantoja MD LAB BLOOD ORDERABLES Fin al Result KATHIE [facility] [address] Department [place] [address] * eGFR (04/21/2025 6:34 AM CDT) eGFR >90 >=60 mL/min/1. 73 [...] MD LAB BLOOD ORDERABLES Fin al Result [place] [address] [place] [address] * (ABNORMAL) Differential, auto (04/21/2025 6:34 AM CDT) Neutrophil abs 3.65 1.50 - 6.50 K/cumm Imm gran abs 0.01 0.00 - 0.10 K/cumm [facility] Lymphocyte abs 0.39(L) 0.80 - 3.30 K/cumm [facility] Monocyte abs 0.24 0.20 - 0.80 K/cumm [facility] Eosinophil abs 0.00 0.00 - 0.50 K/cumm [facility] Basophil abs 0.01 0.00 - 0.10 K/cumm [facility] Neutrophil pct 84.9 % [facility] Comment: Interpretive Data Percent cell count reference ranges are not reported, since discordance with absolute values may lead to misinterpretation of CBC data. Current Interpretive Data was last revised on 2017. Imm gran pct 0.2 % [facility] Comment: Interpretive Data Percent cell count reference ranges are not reported, since discordance with absolute values may lead to misinterpretation of CBC data. Current Interpretive Data was last revised on 2017. Lymphocyte pct 9.1 % [facility] Comment: Interpretive Data Percent cell count reference ranges are not reported, since discordance with absolute values may lead to misinterpretation of CBC data. Current Interpretive Data was last revised on 2017. Monocyte pct 5.6 % [facility] Comment: Interpretive Data Percent cell count reference ranges are not reported, since discordance with absolute values may lead to misinterpretation of CBC data. Current Interpretive Data was last revised on 2017. Eosinophil pct 0.0 % [facility] Comment: Interpretive Data Percent cell count reference ranges are not reported, since discordance with absolute values may lead to misinterpretation of CBC data. Current Interpretive Data was last revised on 2017. Basophil pct 0.2 % [facility] Comment: Interpretive Data Percent cell count reference ranges are not reported, since discordance with absolute values may lead to misinterpretation of CBC data. Current Interpretive Data was last revised on 2017. Blood 04/21/2025 6:34 AM CDT 04/21/2025 6:38 AM CDT Justin Pantoja MD LAB BLOOD ORDERABLES Fin al Result [address] Department [place] [address] * (ABNORMAL) CBC with auto differential (04/21/2025 6:34 AM CDT) WBC 4.30 3.80 - 9.90 K/cumm Hgb 8.4(L) 11.9 - 15.5 g/dL [facility] Hct 27.1(L) 35.6 - 45.5 % [facility] Plt 123(L) 150 - 400 K/cumm [facility] MPV 12.2 9.1 - 12.3 fL [facility] RBC 2.37(L) 3.90 - 5.20 M/cumm [facility] MCV 114.3(H) 81.3 - 96.4 fL [facility] MCH 35.4(H) 27.1 - 33.3 pg [facility] MCHC 31.0(L) 32.3 - 35.7 g/dL [facility] RDW CV 21.8(H) 11.1 - 14.9 % [facility] RDW SD 90.5(H) 35.7 - 48.1 fL [facility] NRBC abs 0.00 0.00 - 0.01 K/cumm [facility] Blood 04/21/2025 6:34 AM CDT 04/21/2025 6:38 AM CDT Justin Pantoja MD LAB BLOOD ORDERABLES Bandar alcides Result - Final [facility] [address] [place] [address] * (ABNORMAL) Basic metabolic panel (04/21/2025 6:34 AM CDT) Sodium 138 135 - 145 mmol/L Potassium, pl 4.6 3.3 - 4.9 mmol/L [facility] Comment:Hemolyzed; Potassium value may be falsely elevated by as much as 1.0 mmol/L. Suggest redraw and reanalysis. Chloride 111(H) 97 - 110 mmol/L [facility] CO2 24 22 - 32 mmol/L [facility] Anion gap 3 2 - 15 mmol/L [facility] BUN 11 6 - 25 mg/dL [facility] Creatinine 0.59(L) 0.60 - 1.10 mg/dL [facility] Glucose 137 70 - 199 mg/dL [facility] Comment: Interpretive Data Fasting glucose >/= 126 [...] 2022. Calcium 9.1 8.5 - 10.3 mg/dL [facility] Blood 04/21/2025 6:34 AM CDT 04/21/2025 6:38 AM CDT Justin Pantoja MD LAB BLOOD ORDERABLES Fin al Result Performing Organization Address [facility] Co de Phone Number KATHIE [address] Department [place] [address] * eGFR (04/21/2025 5:04 AM CDT) [facility] eGFR >90 >=60 mL/min/1. 73 m2 [...] ORDERABLES Final R esult Performing Organization Address [facility] Co de Phone Number KATHIE [address] Department [place] [address] * (ABNORMAL) Differential, auto (04/21/2025 5:04 AM CDT) [facility] Neutrophil abs 3.06 1.50 - 6.50 K/cumm Imm gran abs 0.01 0.00 - 0.10 K/cumm [facility] Lymphocyte abs 0.35(L) 0.80 - 3.30 K/cumm [facility] Monocyte abs 0.18(L) 0.20 - 0.80 K/cumm [facility] Eosinophil abs 0.00 0.00 - 0.50 K/cumm [facility] Basophil abs 0.01 0.00 - 0.10 K/cumm [facility] Neutrophil pct 84.7 % [facility] Comment: Interpretive Data Percent cell count reference ranges are not reported, since discordance with absolute values may lead to misinterpretation of CBC data. Current Interpretive Data was last revised on 2017. Imm gran pct 0.3 % [facility] Comment: Interpretive Data Percent cell count reference ranges are not reported, since discordance with absolute values may lead to misinterpretation of CBC data. Current Interpretive Data was last revised on 2017. Lymphocyte pct 9.7 % [facility] Comment: Interpretive Data Percent cell count reference ranges are not reported, since discordance with absolute values may lead to misinterpretation of CBC data. Current Interpretive Data was last revised on 2017. Monocyte pct 5.0 % [facility] Comment: Interpretive Data Percent cell count reference ranges are not reported, since discordance with absolute values may lead to misinterpretation of CBC data. Current Interpretive Data was last revised on 2017. Eosinophil pct 0.0 % [facility] Comment: Interpretive Data Percent cell count reference ranges are not reported, since discordance with absolute values may lead to misinterpretation of CBC data. Current Interpretive Data was last revised on 2017. Basophil pct 0.3 % [facility] Comment: Interpretive Data Percent cell count reference ranges are not reported, since discordance with absolute values may lead to misinterpretation of CBC data. Current Interpretive Data was last revised on 2017. Blood 04/21/2025 5:04 AM CDT 04/21/2025 5:28 AM CDT us Ludwig Anne MD LAB BLOOD ORDERABLES Final R esult KATHIE [address] Department [place] [address] * (ABNORMAL) CBC with auto differential (04/21/2025 5:04 AM CDT) WBC 3.61(L) 3.80 - 9.90 K/cumm Hgb 8.6(L) 11.9 - 15.5 g/dL [facility] Hct 27.5(L) 35.6 - 45.5 % [facility] Plt 146(L) 150 - 400 K/cumm [facility] MPV 11.1 9.1 - 12.3 fL [facility] RBC 2.46(L) 3.90 - 5.20 M/cumm [facility] MCV 111.8(H) 81.3 - 96.4 fL [facility] MCH 35.0(H) 27.1 - 33.3 pg [facility] MCHC 31.3(L) 32.3 - 35.7 g/dL [facility] RDW CV 21.5(H) 11.1 - 14.9 % [facility] RDW SD 87.5(H) 35.7 - 48.1 fL [facility] NRBC abs 0.00 0.00 - 0.01 K/cumm [facility] Blood 04/21/2025 5:04 AM CDT 04/21/2025 5:28 AM CDT us Ludwig Anne MD LAB BLOOD ORDERABLES Final R esult [facility] [address] Department [place] [address] * (ABNORMAL) Basic metabolic panel (04/21/2025 5:04 AM CDT) Sodium 141 135 - 145 mmol/L Potassium, pl 3.8 3.3 - 4.9 mmol/L [facility] Chloride 112(H) 97 - 110 mmol/L [facility] CO2 26 22 - 32 mmol/L [facility] Anion gap 3 2 - 15 mmol/L [facility] BUN 10 6 - 25 mg/dL [facility] Creatinine 0.63 0.60 - 1.10 mg/dL [facility] Glucose 170 70 - 199 mg/dL [facility] Comment: Interpretive Data Fasting glucose >/= 126 [...] 2022. Calcium 9.2 8.5 - 10.3 mg/dL [facility] Blood 04/21/2025 5:04 AM CDT 04/21/2025 5:28 AM CDT Ludwig Anne MD LAB BLOOD ORDERABLES Final R esult Performing Organization Address [facility] Co de Phone Number [address] [place] [address] * ABO/Rh (04/20/2025 3:03 PM CDT) ABO/Rh A Positive Blood 04/20/2025 3:03 PM CDT 04/20/2025 3:07 PM CDT Narrative [facility] - 04/20/2025 3:50 PM CDT Has the patient had Daratumumab or Isatuximab in the past 6 months?->Unknown José Luis Jiménez MD LAB BLOOD BANK TEST ORDERAB LES Final Result Performing Organization Address [facility] Co de Phone Number [address] [address] * Antibody screen (04/20/2025 3:03 PM CDT) Susan, indirect, Gel Interpretation Negative ABSC Blood 04/20/2025 3:03 PM CDT 04/20/2025 3:07 PM CDT Narrative [facility] - 04/20/2025 3:50 PM CDT Has the patient had Daratumumab or Isatuximab in the past 6 months?->Unknown José Luis Jiménez MD LAB BLOOD BANK TEST ORDERAB LES Final Result KATHIE [address] Department [place] [address] * (ABNORMAL) Tissue aerobic and anaerobic culture and gram stain Tissue Leg, left (04/20/2025 1:56 PMCDT) Direct Specimen Exam Stain: Rare polymorphonuclear leukocytes seen. Abundant Gram Positive Cocci Moderate Gram Negative Bacilli Comment:Testing performed by : [facility], [address] [place] [address]., [id number] Report Final Report: Moderate Mixed microorganisms. Includes the following: Abundant Staphylococcus aureus Methicillin resistant (MRSA) by penicillin binding protein 2a (PBP2a) testing. Moderate Alcaligenes faecalis Few Pseudomonas aeruginosa Few Pseudomonas aeruginosa #2 (.) KATHIE Comment:Testing performed by : [facility], [address] [place] [address]., [id number] Organism [facility] Organism STAPHYLOCOCCUS AUREUS [facility] Organism MIXED MICROORGANISMS. [facility] Organism PSEUDOMONAS AERUGINOSA [facility] Organism ALCALIGENES FAECALIS [facility] Tissue (Leg, left) 04/20/2025 1:56 PM CDT 04/20/2025 5:45 PM CDT Narrative [facility] - 04/24/2025 11:37 AM CDT Left lower leg wound tissue for culture Testing performed by [facility] ([phone]) Specimens submitted from normally sterile body sites [...] GENERAL ORDERABLES Final Result Performing Organization Address City/State/[facility] de Phone Number [place] [address] Department of Laboratories [place] [phone] * WI AN ELECTIVE ENDOTRACHEAL AIRWAY, WI AN PROCEDURE PLACEHOLDER (04/20/2025 1:42 PM CDT) Dannie Willoughby CRNA - 04/20/2025 1:42 PM CDT Dannie Freeman CRNA 04/20/2025 1:43 PM Airway Patient location: OR Urgency: elective Date/time: 04/20/2025 1:36 PM Indications for airway management: anesthesia Difficult airway: no Staff: Supervising provider: Vickie Nair MD Placed by: MAILROOM COORDINATOR: Dannie Freeman CRNA Emergent airway documentation: Risks [...] AM CDT 04/20/2025 6:29 AM CDT us Jonh Galvez MD LAB BLOOD ORDERABLE S Final Result KATHIE [address] Department of Laboratories [place] [phone] * (ABNORMAL) Differential, auto (04/20/2025 5:37 AM CDT) Pathologist [facility] Neutrophil abs 1.42(L) 1.50 - 6.50 K/cumm Imm gran abs 0.01 0.00 - 0.10 K/cumm [facility] Lymphocyte abs 0.43(L) 0.80 - 3.30 K/cumm [facility] Monocyte abs 0.25 0.20 - 0.80 K/cumm [facility] Eosinophil abs 0.13 0.00 - 0.50 K/cumm [facility] Basophil abs 0.02 0.00 - 0.10 K/cumm [facility] Neutrophil pct 62.8 % [facility] Comment: Interpretive Data Percent cell count reference ranges are not reported, since discordance with absolute values may lead to misinterpretation of CBC data. Current Interpretive Data was last revised on 2017. Imm gran pct 0.4 % [facility] Comment: Interpretive Data Percent cell count reference ranges are not reported, since discordance with absolute values may lead to misinterpretation of CBC data. Current Interpretive Data was last revised on 2017. Lymphocyte pct 19.0 % [facility] Comment: Interpretive Data Percent cell count reference ranges are not reported, since discordance with absolute values may lead to misinterpretation of CBC data. Current Interpretive Data was last revised on 2017. Monocyte pct 11.1 % [facility] Comment: Interpretive Data Percent cell count reference ranges are not reported, since discordance with absolute values may lead to misinterpretation of CBC data. Current Interpretive Data was last revised on 2017. Eosinophil pct 5.8 % [facility] Comment: Interpretive Data Percent cell count reference ranges are not reported, since discordance with absolute values may lead to misinterpretation of CBC data. Current Interpretive Data was last revised on 2017. Basophil pct 0.9 % [facility] Comment: Interpretive Data Percent cell count reference ranges are not reported, since discordance with absolute values may lead to misinterpretation of CBC data. Current Interpretive Data was last revised on 2017. Blood 04/20/2025 5:37 AM CDT 04/20/2025 6:29 AM CDT us Justin Pantoja MD LAB BLOOD ORDERABLES Fin al Result Performing Organization Address City/[facility]/ZIP Co de Phone Number KATHIE [address] [place] [address] * (ABNORMAL) CBC with auto differential (04/20/2025 5:37 AM CDT) [facility] WBC 2.26(L) 3.80 - 9.90 K/cumm Hgb 7.9(L) 11.9 - 15.5 g/dL [facility] Hct 25.5(L) 35.6 - 45.5 % [facility] Plt 145(L) 150 - 400 K/cumm [facility] MPV 11.4 9.1 - 12.3 fL [facility] RBC 2.24(L) 3.90 - 5.20 M/cumm [facility] MCV 113.8(H) 81.3 - 96.4 fL [facility] MCH 35.3(H) 27.1 - 33.3 pg [facility] MCHC 31.0(L) 32.3 - 35.7 g/dL [facility] RDW CV 22.2(H) 11.1 - 14.9 % [facility] RDW SD 90.7(H) 35.7 - 48.1 fL [facility] NRBC abs 0.00 0.00 - 0.01 K/cumm [facility] Blood 04/20/2025 5:37 AM CDT 04/20/2025 6:29 AM CDT us José Luis Jiménez MD LAB BLOOD ORDERABLES Final Result KATHIE [address] [place] [address] * (ABNORMAL) Basic metabolic panel (04/20/2025 5:37 AM CDT) [facility] Sodium 138 135 - 145 mmol/L Potassium, pl 3.9 3.3 - 4.9 mmol/L [facility] Chloride 108 97 - 110 mmol/L [facility] CO2 25 22 - 32 mmol/L [facility] Anion gap 5 2 - 15 mmol/L [facility] BUN 7 6 - 25 mg/dL [facility] Creatinine 0.57(L) 0.60 - 1.10 mg/dL [facility] Glucose 83 70 - 199 mg/dL [facility] Comment: Interpretive Data Fasting glucose >/= 126 [...] 2022. Calcium 9.0 8.5 - 10.3 mg/dL [facility] Blood 04/20/2025 5:37 AM CDT 04/20/2025 6:29 AM CDT José Luis Jiménez MD LAB BLOOD ORDERABLES Final Result Performing Organization Address [facility] Co de Phone Number [address] [place] [address] * Vancomycin level trough (04/19/2025 11:26 AM CDT) Pathologist [facility] Vancomycin trough 12.6 10.0 - 20.0 mcg/mL Blood 04/19/2025 11:2 6 AM CDT 04/19/2025 11:38 AM CDT Justin Pantoja MD LAB BLOOD ORDERABLES Fin al Result Performing Organization Address City/[facility]/ZIP Co de Phone Number [address] Walk-[place] [address] * eGFR (04/19/2025 4:24 AM CDT) Pathologist [facility] eGFR >90 >=60 mL/min/1. 73 m2 Comment: [...] MD LAB BLOOD ORDERABLES Final R esult [facility] [address] [facility] [place] [address] * (ABNORMAL) Differential, auto (04/19/2025 4:24 AM CDT) Neutrophil abs 1.93 1.50 - 6.50 K/cumm Imm gran abs 0.01 0.00 - 0.10 K/cumm [facility] Lymphocyte abs 0.49(L) 0.80 - 3.30 K/cumm [facility] Monocyte abs 0.30 0.20 - 0.80 K/cumm [facility] Eosinophil abs 0.15 0.00 - 0.50 K/cumm [facility] Basophil abs 0.03 0.00 - 0.10 K/cumm [facility] Neutrophil pct 66.4 % [facility] Comment: Interpretive Data Percent cell count reference ranges are not reported, since discordance with absolute values may lead to misinterpretation of CBC data. Current Interpretive Data was last revised on 2017. Imm gran pct 0.3 % [facility] Comment: Interpretive Data Percent cell count reference ranges are not reported, since discordance with absolute values may lead to misinterpretation of CBC data. Current Interpretive Data was last revised on 2017. Lymphocyte pct 16.8 % [facility] Comment: Interpretive Data Percent cell count reference ranges are not reported, since discordance with absolute values may lead to misinterpretation of CBC data. Current Interpretive Data was last revised on 2017. Monocyte pct 10.3 % [facility] Comment: Interpretive Data Percent cell count reference ranges are not reported, since discordance with absolute values may lead to misinterpretation of CBC data. Current Interpretive Data was last revised on 2017. Eosinophil pct 5.2 % [facility] Comment: Interpretive Data Percent cell count reference ranges are not reported, since discordance with absolute values may lead to misinterpretation of CBC data. Current Interpretive Data was last revised on 2017. Basophil pct 1.0 % [facility] Comment: Interpretive Data Percent cell count reference ranges are not reported, since discordance with absolute values may lead to misinterpretation of CBC data. Current Interpretive Data was last revised on 2017. Blood 04/19/2025 4:24 AM CDT 04/19/2025 4:40 AM CDT us Justin Pantoja MD LAB BLOOD ORDERABLES Fin al Result [facility] [address] [facility] [place] [address] * (ABNORMAL) CBC with auto differential (04/19/2025 4:24 AM CDT) WBC 2.91(L) 3.80 - 9.90 K/cumm Hgb 7.7(L) 11.9 - 15.5 g/dL [facility] Hct 24.3(L) 35.6 - 45.5 % [facility] Plt 159 150 - 400 K/cumm [facility] MPV 10.9 9.1 - 12.3 fL [facility] RBC 2.15(L) 3.90 - 5.20 M/cumm [facility] MCV 113.0(H) 81.3 - 96.4 fL [facility] MCH 35.8(H) 27.1 - 33.3 pg [facility] MCHC 31.7(L) 32.3 - 35.7 g/dL [facility] RDW CV 22.0(H) 11.1 - 14.9 % [facility] RDW SD 88.8(H) 35.7 - 48.1 fL [facility] NRBC abs 0.00 0.00 - 0.01 K/cumm [facility] Blood 04/19/2025 4:24 AM CDT 04/19/2025 4:40 AM CDT us José Luis Jiménez MD LAB BLOOD ORDERABLES Final Result [facility] [address] [facility] Department [place] [address] * (ABNORMAL) Comprehensive metabolic panel (04/19/2025 4:24 AM CDT) Sodium 138 135 - 145 mmol/L Potassium, pl 3.6 3.3 - 4.9 mmol/L [facility] Chloride 109 97 - 110 mmol/L [facility] CO2 23 22 - 32 mmol/L [facility] Anion gap 6 2 - 15 mmol/L [facility] BUN 6 6 - 25 mg/dL [facility] Creatinine 0.53(L) 0.60 - 1.10 mg/dL [facility] Glucose 80 70 - 199 mg/dL [facility] Comment: Interpretive Data Fasting glucose >/= 126 [...] 2022. Calcium 9.0 8.5 - 10.3 mg/dL [facility] Bilirubin, total 0.9 0.1 - 1.2 mg/dL [facility] Protein, pl 6.1(L) 6.5 - 8.5 g/dL [facility] Albumin 2.5(L) 3.5 - 5.0 g/dL [facility] Alk phos 89 40 - 130 Units/L [facility] ALT 6(L) 7 - 45 Units/L [facility] AST 32 10 - 45 Units/L [facility] Blood 04/19/2025 4:24 AM CDT 04/19/2025 4:40 AM CDT us Ludwig Anne MD LAB BLOOD ORDERABLES Final R esult [facility] [address] [facility] [place] [address] * eGFR (04/18/2025 5:33 AM CDT) eGFR [...] AM CDT 04/18/2025 6:37 AM CDT us Jonh Galvez MD LAB BLOOD ORDERABLE S Final Result KATHIE [address] [facility] [place] [address] * (ABNORMAL) Differential, auto (04/18/2025 5:33 AM CDT) Neutrophil abs 2.65 1.50 - 6.50 K/cumm Imm gran abs 0.01 0.00 - 0.10 K/cumm [facility] Lymphocyte abs 0.48(L) 0.80 - 3.30 K/cumm [facility] Monocyte abs 0.32 0.20 - 0.80 K/cumm [facility] Eosinophil abs 0.17 0.00 - 0.50 K/cumm [facility] Basophil abs 0.04 0.00 - 0.10 K/cumm [facility] Neutrophil pct 72.2 % [facility] Comment: Interpretive Data Percent cell count reference ranges are not reported, since discordance with absolute values may lead to misinterpretation of CBC data. Current Interpretive Data was last revised on 2017. Imm gran pct 0.3 % [facility] Comment: Interpretive Data Percent cell count reference ranges are not reported, since discordance with absolute values may lead to misinterpretation of CBC data. Current Interpretive Data was last revised on 2017. Lymphocyte pct 13.1 % [facility] Comment: Interpretive Data Percent cell count reference ranges are not reported, since discordance with absolute values may lead to misinterpretation of CBC data. Current Interpretive Data was last revised on 2017. Monocyte pct 8.7 % [facility] Comment: Interpretive Data Percent cell count reference ranges are not reported, since discordance with absolute values may lead to misinterpretation of CBC data. Current Interpretive Data was last revised on 2017. Eosinophil pct 4.6 % [facility] Comment: Interpretive Data Percent cell count reference ranges are not reported, since discordance with absolute values may lead to misinterpretation of CBC data. Current Interpretive Data was last revised on 2017. Basophil pct 1.1 % [facility] Comment: Interpretive Data Percent cell count reference ranges are not reported, since discordance with absolute values may lead to misinterpretation of CBC data. Current Interpretive Data was last revised on 2017. Blood 04/18/2025 5:33 AM CDT 04/18/2025 6:37 AM CDT us Justin Pantoja MD LAB BLOOD ORDERABLES Fin al Result Performing Organization Address [facility]/ZIP Co de Phone Number KATHIE [address] [address] * (ABNORMAL) CBC with auto differential (04/18/2025 5:33 AM CDT) WBC 3.67(L) 3.80 - 9.90 K/cumm Hgb 7.8(L) 11.9 - 15.5 g/dL [facility] Hct 25.5(L) 35.6 - 45.5 % [facility] Plt 166 150 - 400 K/cumm [facility] MPV 11.1 9.1 - 12.3 fL [facility] RBC 2.25(L) 3.90 - 5.20 M/cumm [facility] MCV 113.3(H) 81.3 - 96.4 fL [facility] MCH 34.7(H) 27.1 - 33.3 pg [facility] MCHC 30.6(L) 32.3 - 35.7 g/dL [facility] RDW CV 22.3(H) 11.1 - 14.9 % [facility] RDW SD 91.0(H) 35.7 - 48.1 fL [facility] NRBC abs 0.00 0.00 - 0.01 K/cumm [facility] Blood 04/18/2025 5:33 AM CDT 04/18/2025 6:37 AM CDT us José Luis Jiménez MD LAB BLOOD ORDERABLES Final Result Performing Organization Address City/[facility]/ZIP Co de Phone Number KATHIE [address] [address] * (ABNORMAL) Basic metabolic panel (04/18/2025 5:33 AM CDT) Pathologist [facility] Sodium 139 135 - 145 mmol/L Potassium, pl 3.7 3.3 - 4.9 mmol/L [facility] Chloride 110 97 - 110 mmol/L [facility] CO2 24 22 - 32 mmol/L [facility] Anion gap 5 2 - 15 mmol/L [facility] BUN 6 6 - 25 mg/dL [facility] Creatinine 0.54(L) 0.60 - 1.10 mg/dL [facility] Glucose 84 70 - 199 mg/dL [facility] Comment: Interpretive Data Fasting glucose >/= 126 [...] 2022. Calcium 8.9 8.5 - 10.3 mg/dL [facility] Blood 04/18/2025 5:33 AM CDT 04/18/2025 6:37 AM CDT us José Luis Jiménez MD LAB BLOOD ORDERABLES Final Result Performing Organization Address [facility] Co de Phone Number [address] [place] [address] * Vancomycin level trough (04/17/2025 11:01 AM CDT) Pathologist [facility] Vancomycin trough 13.0 10.0 - 20.0 mcg/mL Blood 04/17/2025 11:0 1 AM CDT 04/17/2025 11:05 AM CDT Jonh Galvez MD LAB BLOOD ORDERABLE S Final Result Performing Organization Address [facility] Co de Phone Number [address] Walk[place] [address] * eGFR (04/17/2025 5:25 AM CDT) eGFR [...] LAB BLOOD ORDERABLE S Final Result KATHIE [address] [facility] Department [place] [address] * Methylmalonic acid, serum (04/17/2025 5:25 AM CDT) Pathologist [facility] MMA 0.15 <=0.40 nmol/mL [facility] Comment: ADDITIONAL INFORMATION This test was developed and its performance characteristics determined by [facility] in a manner consistent with CLIA requirements. This test has not been cleared or approved by the U.S. Food and Drug Administration. Test Performed by: [facility] - [address] [address] [email or web address] Engineer: Janie Betancourt Ph.D.; CLIA# [id number] Blood 04/17/2025 5:25 AM CDT 04/17/2025 5:52 AM CDT Narrative KATHIE - 04/20/2025 11:39 AM CDT sent to lab; 04/18/2025 16:21:09 CDT [id number] received in lab; 04/19/2025 14:10:58 CDT [id number] Justin Pantoja MD LAB BLOOD ORDERABLES Fin al Result Performing Organization Address City/[facility] Co de Phone Number [address] [place] [address] [facility] * Reticulocyte Count (04/17/2025 5:25 AM CDT) [facility] Retics, absolute 62 20 - 87 K/cumm Retics 2.8 0.4 - 2.9 % [facility] Reticulocyte Hgb 34.0 30.5 - 38.0 pg [facility] Blood 04/17/2025 5:25 AM CDT 04/17/2025 5:52 AM CDT Justin Pantoja MD LAB BLOOD ORDERABLES Fin al Result Performing Organization Address City/[facility] Co de Phone Number [address] Walk-[place] [address] * (ABNORMAL) Ferritin (04/17/2025 5:25 AM CDT) [facility] Ferritin 623(H) 13 - 150 ng/mL Blood 04/17/2025 5:25 AM CDT 04/17/2025 5:52 AM CDT Justin Pantoja MD LAB BLOOD ORDERABLES Fin al Result Performing Organization Address City/[facility] Co de Phone Number [address] [place] [address] * (ABNORMAL) Basic metabolic panel (04/17/2025 5:25 AM CDT) Sodium 140 135 - 145 mmol/L Potassium, pl 3.5 3.3 - 4.9 mmol/L [facility] Chloride 113(H) 97 - 110 mmol/L [facility] CO2 22 22 - 32 mmol/L [facility] Anion gap 5 2 - 15 mmol/L [facility] BUN 6 6 - 25 mg/dL [facility] Creatinine 0.57(L) 0.60 - 1.10 mg/dL [facility] Glucose 87 70 - 199 mg/dL [facility] Comment: Interpretive Data Fasting glucose >/= 126 [...] 2022. Calcium 8.9 8.5 - 10.3 mg/dL [facility] Blood 04/17/2025 5:25 AM CDT 04/17/2025 5:52 AM CDT us José Luis Jiménez MD LAB BLOOD ORDERABLES Final Result Performing Organization Address City/State/[facility] Co de Phone Number [facility] [address] [facility] [place] [address] * (ABNORMAL) Hemoglobin and hematocrit (04/16/2025 11:35 PM CDT) Hgb 7.7(L) 11.9 - 15.5 g/dL Hct 24.2(L) 35.6 - 45.5 % [facility] Blood 04/16/2025 11:3 5 PM CDT 04/16/2025 11:47 PM CDT us Jonh Galvez MD LAB BLOOD ORDERABLE S Final Result Performing Organization Address City/[facility] de Phone Number [address] [address] * (ABNORMAL) Hemoglobin and hematocrit (04/16/2025 5:54 PM CDT) [facility] Hgb 8.8(L) 11.9 - 15.5 g/dL Hct 28.1(L) 35.6 - 45.5 % [facility] Blood 04/16/2025 5:54 PM CDT 04/16/2025 6:06 PM CDT Jonh Galvez MD LAB BLOOD ORDERABLE S Final Result Performing Organization Address [facility] Co de Phone Number [address] [address] * (ABNORMAL) Hemoglobin and hematocrit (04/16/2025 11:39 AM CDT) [facility] Hgb 7.6(L) 11.9 - 15.5 g/dL Hct 24.0(L) 35.6 - 45.5 % [facility] Blood 04/16/2025 11:3 9 AM CDT 04/16/2025 12:06 PM CDT Jonh Galvez MD LAB BLOOD ORDERABLE S Final Result Performing Organization Address [facility] Co de Phone Number [address] [address] * (ABNORMAL) POC Blood Gas and Chemistries, Venous - (04/16/2025 8:24 AM CDT) [facility] pH,shama POC 7.37 7.32 - 7.43 pCO2, shama POC 38(L) 40 - 50 mmHg [facility] pO2,shama POC 48 mmHg [facility] Comment: Interpretive Data No reference range established. Current interpretive data was last revised 2020. HCO3, shama (Calc) POC 22 20 - 30 mmol/L [facility] Base excess, shama POC -3 mmol/L [facility] Comment: Interpretive Data No reference range established. Current interpretive data was last revised 2020. Oxy Hgb, shama POC 81.3(L) 90.0 - 95.0 % [facility] Met Hgb, shama POC 1.1 0.0 - 1.9 % [facility] Carboxy Hgb, shama POC 3.5(H) 0.0 - 2.9 % [facility] Hemoglobin, shama POC 8.2(L) 11.9 - 15.5 g/dL [facility] Lactate, shama POC 0.7 0.7 - 2.0 mmol/L [facility] Blood 04/16/2025 8:24 AM CDT 04/16/2025 8:24 AM CDT Justin Pantoja MD LAB POCT ORDERABLES - DE VICE Final Result Performing Organization Address City/[facility] Co de Phone Number [address] [place] [address] * (ABNORMAL) Hemoglobin and hematocrit (04/16/2025 5:44 AM CDT) Pathologist [facility] Hgb 7.7(L) 11.9 - 15.5 g/dL Hct 25.0(L) 35.6 - 45.5 % [facility] Blood 04/16/2025 5:44 AM CDT 04/16/2025 6:00 AM CDT Jonh Galvez MD LAB BLOOD ORDERABLE S Final Result Performing Organization Address City/[facility]/ZIP Co de Phone Number [address] [employer] [address] * eGFR (04/16/2025 4:13 AM CDT) eGFR [...] ORDERABLE S Final Result Performing Organization Address City/[facility]/ZIP Co de Phone Number [address] [place] [address] * (ABNORMAL) Hemoglobin and hematocrit (04/16/2025 4:13 AM CDT) Hgb 7.9(L) 11.9 - 15.5 g/dL Hct 25.2(L) 35.6 - 45.5 % [facility] Blood 04/16/2025 4:13 AM CDT 04/16/2025 4:19 AM CDT Jonh Galvez MD LAB BLOOD ORDERABLE S Final Result Performing Organization Address City/[facility]/ZIP Co de Phone Number [address] Walk-in Appointment Scheduler [place], [place] [id number] * (ABNORMAL) Basic metabolic panel (04/16/2025 4:13 AM CDT) Sodium 139 135 - 145 mmol/L Potassium, pl 3.5 3.3 - 4.9 mmol/L [facility] Chloride 112(H) 97 - 110 mmol/L [facility] CO2 22 22 - 32 mmol/L [facility] Anion gap 5 2 - 15 mmol/L [facility] BUN 6 6 - 25 mg/dL [facility] Creatinine 0.65 0.60 - 1.10 mg/dL [facility] Glucose 89 70 - 199 mg/dL [facility] Comment: Interpretive Data Fasting glucose >/= 126 [...] 2022. Calcium 8.9 8.5 - 10.3 mg/dL [facility] Blood 04/16/2025 4:13 AM CDT 04/16/2025 4:19 AM CDT José Luis Jiménez MD LAB BLOOD ORDERABLES Final Result Performing Organization Address [facility] Co de Phone Number [address] [employer] [place], [place] [id number] * Transfuse RBC (04/16/2025 3:29 AM CDT) Blood Nayla Hartman NP BLOOD TRANSFUSION ORDERA BLES Final Result Performing Organization Address City/[facility] Co de Phone Number [address] [place] [address] * (ABNORMAL) Hemoglobin and hematocrit (04/15/2025 11:40 PM CDT) Hgb 7.0(L) 11.9 - 15.5 g/dL Hct 22.5(L) 35.6 - 45.5 % [facility] Blood 04/15/2025 11:4 0 PM CDT 04/15/2025 11:43 PM CDT Jonh Galvez MD LAB BLOOD ORDERABLE S Final Result Performing Organization Address City/[facility] Co de Phone Number KATHIE [address] [address] * Vancomycin level trough (04/15/2025 11:39 PM CDT) Pathologist [facility] Vancomycin trough 12.7 10.0 - 20.0 mcg/mL Blood 04/15/2025 11:3 9 PM CDT 04/15/2025 11:43 PM CDT Jonh Galvez MD LAB BLOOD ORDERABLE S Final Result Performing Organization Address [facility] de Phone Number [address] [address] * Prepare RBC: 1 Units (04/15/2025 9:06 PM CDT) Units requested 1 Units requested Ready [facility] Unit Number [id number] Product code [id number] [facility] Blood Expiration Date [id number] [facility] Product Blood Type (for scanning) 6200 [facility] Product Blood Type APOS [facility] Dispense Status DISPENSED [facility] Blood 04/15/2025 9:06 PM CDT 04/15/2025 9:06 PM CDT Nayla Hartman NP BLOOD BANK PRODUCT ORDER MILLIE Final Result Performing Organization Address City/[facility] Co de Phone Number [address] [phone] * (ABNORMAL) Hemoglobin and hematocrit (04/15/2025 7:04 PM CDT) Hgb 6.8(L) 11.9 - 15.5 g/dL Hct 21.6(L) 35.6 - 45.5 % [facility] Blood 04/15/2025 7:04 PM CDT 04/15/2025 7:06 PM CDT Jonh Galvez MD LAB BLOOD ORDERABLE S Final Result Performing Organization Address City/[facility]/ZIP Co de Phone Number [address] [place] [address] * (ABNORMAL) Iron profile w/ IBC (04/15/2025 12:05 PM CDT) Iron 76 35 - 145 mcg/dL TIBC 123(L) 250 - 400 mcg/dL [facility] Transferrin saturation 62(H) 20 - 50 % [facility] Blood 04/15/2025 12:0 5 PM CDT 04/15/2025 12:13 PM CDT Jonh Galvez MD LAB BLOOD ORDERABLE S Final Result Performing Organization Address [facility] Co de Phone Number [address] [address] * (ABNORMAL) Hemoglobin and hematocrit (04/15/2025 12:05 PM CDT) Hgb 6.8(L) 11.9 - 15.5 g/dL Hct 21.4(L) 35.6 - 45.5 % [facility] Blood 04/15/2025 12:0 5 PM CDT 04/15/2025 12:13 PM CDT Jonh Galvez MD LAB BLOOD ORDERABLE S Final Result Performing Organization Address City/[facility] Co de Phone Number [address] [address] * Blood culture Blood Peripheral (04/15/2025 12:05 PM CDT) Report Final Report: No growth Comment:Testing performed by : [facility], [address] [place]., [address] Blood (Peripheral) 04/15/2025 12:05 PM CDT 04/15/2025 4:28 PM CDT Bubba FOY - 04/20/2025 7:00 AM CDT If possible, [...] performance characteristics have been verified by the [facility]. For questions about this culture, contact the Microbiology Laboratory at [phone]. Interpretive data was last revised on 24. Jonh Galvez MD LAB MICROBIOLOGY - GENERAL ORDERABLES Final Result KATHIE [address] [facility] Department of Laboratories [place], [place] [id number] * Blood culture Blood Peripheral (04/15/2025 12:03 PM CDT) Report Final Report: No growth Comment:Testing performed by : [facility], [address] [facility] [place]., [address] Blood (Peripheral) 04/15/2025 12:03 PM CDT 04/15/2025 [...] performance characteristics have been verified by the [facility]. For questions about this culture, contact the Microbiology Laboratory at [phone]. Interpretive data was last revised on 24. Jonh Galvez MD LAB MICROBIOLOGY - GENERAL ORDERABLES Final Result Performing Organization Address City/[facility]/ZIP Co de Phone Number [facility] [address] [facility] [place] [address] * Transfuse RBC (04/15/2025 9:36 AM CDT) Blood us Marisol Meza NP BLOOD TRANSFUSION ORDERABLES Final Result Performing Organization Address [facility] Co de Phone Number [address] Walk-in Appointment Scheduler [place], [place] [id number] * Prepare RBC: 1 Units (04/15/2025 3:03 AM CDT) Pathologist [facility] Units requested 1 Units requested Ready [facility] Unit Number [id number] Product code [id number] [facility] Blood Expiration Date [id number] [facility] Product Blood Type (for scanning) 6200 [facility] Product Blood Type APOS [facility] Dispense Status DISPENSED [facility] Blood 04/15/2025 3:03 AM CDT 04/15/2025 3:03 AM CDT us Marisol Meza NP BLOOD BANK PRODUCT ORDERABLE S Final Result Performing Organization Address City/[facility]/ZIP Co de Phone Number [address] [employer] [address] * Sepsis Lactate w/ Reflex (04/15/2025 2:23 AM CDT) Sepsis Lactate 0.8 0.7 - 2.0 mmol/L Blood 04/15/2025 2:23 AM CDT 04/15/2025 2:38 AM CDT us Jonh Galvez MD LAB BLOOD ORDERABLE S Final Result Performing Organization Address City/[facility] Co de Phone Number [address] [place] [address] * eGFR (04/15/2025 2:23 AM CDT) eGFR >90 >=60 mL/min/1. 73 [...] ORDERABLE S Final Result Performing Organization Address [facility] de Phone Number [address] [address] * ABO / Rh Confirmation Testing (04/15/2025 2:23 AM CDT) Pathologist [facility] ABO/Rh Confirmation A Positive MHB Blood 04/15/2025 2:23 AM CDT 04/15/2025 2:39 AM CDT Jonh Galvez MD LAB BLOOD ORDERABLE S Final Result Performing Organization Address [facility] de Phone Number [address] [address] [facility] * (ABNORMAL) Comprehensive metabolic panel (04/15/2025 2:23 AM CDT) Pathologist [facility] Sodium 139 135 - 145 mmol/L Potassium, pl 3.3 3.3 - 4.9 mmol/L [facility] Chloride 109 97 - 110 mmol/L [facility] CO2 23 22 - 32 mmol/L [facility] Anion gap 7 2 - 15 mmol/L [facility] BUN 6 6 - 25 mg/dL [facility] Creatinine 0.58(L) 0.60 - 1.10 mg/dL [facility] Glucose 84 70 - 199 mg/dL [facility] Comment: Interpretive Data Fasting glucose >/= 126 [...] 2022. Calcium 9.0 8.5 - 10.3 mg/dL [facility] Bilirubin, total 0.8 0.1 - 1.2 mg/dL [facility] Protein, pl 6.1(L) 6.5 - 8.5 g/dL [facility] Albumin 2.6(L) 3.5 - 5.0 g/dL [facility] Alk phos 98 40 - 130 Units/L [facility] ALT 6(L) 7 - 45 Units/L [facility] AST 29 10 - 45 Units/L [facility] Blood 04/15/2025 2:23 AM CDT 04/15/2025 2:39 AM CDT Jonh Galvez MD LAB BLOOD ORDERABLE S Final Result [facility] [address] [facility] [place] [address] * (ABNORMAL) Aerobic and anaerobic culture and gram stain Wound Leg, right (04/14/2025 11:01 PM CDT) Direct Specimen Exam Stain: No polymorphonuclear leukocytes seen. Moderate Gram Negative Bacilli Few Gram Positive Cocci Comment:Testing performed by : [facility], [address] [place] [address], [place]., [address] Report Final Report: Moderate Alcaligenes faecalis Few Staphylococcus aureus Methicillin resistant (MRSA) by penicillin binding protein 2a (PBP2a) testing. Few Pseudomonas aeruginosa Few Mixed aerobic and anaerobic microorganisms (.) [facility] Comment:Testing performed by : [address] [place] [address] Organism ALCALIGENES FAECALIS [facility] Organism STAPHYLOCOCCUS AUREUS [facility] Organism MIXED AEROBIC AND ANAEROBIC MICROORGANISMS [facility] Organism PSEUDOMONAS AERUGINOSA [facility] Wound (Leg, right) 04/14/2025 11:01 PM CDT 04/15/2025 2:01 AM CDT Narrative KATHIE FOY - 04/23/2025 1:09 PM CDT Specimen received on an ESwab. Testing performed by [facility] ([phone]) Specimens submitted from normally sterile body sites [...] ETATION Susceptible Pseudomonas aeruginosa Tobramycin INTERPRETATION Susceptible us Jonh Galvez MD LAB MICROBIOLOGY - GENERAL ORDERABLES Final Result KATHIE FOY [address] [facility] [place] [address] * (ABNORMAL) CBC without differential (04/14/2025 10:28 PM CDT) WBC 4.54 3.80 - 9.90 K/cumm Hgb 6.3(C) 11.9 - 15.5 g/dL [facility] Comment:Critical value ramos d within last 72 hrs Hct 20.3(L) 35.6 - 45.5 % [facility] Plt 164 150 - 400 K/cumm [facility] MPV 10.8 9.1 - 12.3 fL [facility] RBC 1.74(L) 3.90 - 5.20 M/cumm [facility] MCV 116.7(H) 81.3 - 96.4 fL [facility] MCH 36.2(H) 27.1 - 33.3 pg [facility] MCHC 31.0(L) 32.3 - 35.7 g/dL [facility] RDW CV 18.7(H) 11.1 - 14.9 % [facility] RDW SD 80.0(H) 35.7 - 48.1 fL [facility] NRBC abs 0.00 0.00 - 0.01 K/cumm [facility] Blood 04/14/2025 10:2 8 PM CDT 04/14/2025 11:04 PM CDT Jonh Galvez MD LAB BLOOD ORDERABLE S Final Result KATHIE [address] [facility] [place] [address] * Blood culture Blood Peripheral (04/14/2025 7:28 PM CDT) Report Final Report: No growth Comment:Testing performed by : [facility], [address] [facility] [place] [address] Blood (Peripheral) 04/14/2025 7:28 PM CDT 04/14/2025 10:07 PM CDT Narrative [facility] - 04/19/2025 7:00 AM CDT From a [...] performance characteristics have been verified by the [facility]. For questions about this culture, contact the Microbiology Laboratory at [phone]. Interpretive data was last revised on 24. Jonh Galvez MD LAB MICROBIOLOGY - GENERAL ORDERABLES Final Result Performing Organization Address City/[facility]/ZIP Co de Phone Number KATHIE [facility] [facility] [place] [address] * Sepsis Lactate w/ Reflex (04/14/2025 7:18 PM CDT) [facility] Sepsis Lactate 1.4 0.7 - 2.0 mmol/L Blood 04/14/2025 7:18 PM CDT 04/14/2025 7:32 PM CDT Jonh Galvez MD LAB BLOOD ORDERABLE S Final Result Performing Organization Address City/[facility]/ZIP Co de Phone Number [facility] [place] [address] * eGFR (04/14/2025 7:18 PM CDT) [facility] eGFR >90 >=60 mL/min/1. 73 m2 [...] JIMENEZ LAB BLOOD ORDERABLES Final Resu lt [facility] [address] [facility] [place] [address] * (ABNORMAL) Differential, auto (04/14/2025 7:18 PM CDT) Neutrophil abs 4.35 1.50 - 6.50 K/cumm Imm gran abs 0.02 0.00 - 0.10 K/cumm [facility] Lymphocyte abs 0.43(L) 0.80 - 3.30 K/cumm [facility] Monocyte abs 0.47 0.20 - 0.80 K/cumm [facility] Eosinophil abs 0.12 0.00 - 0.50 K/cumm [facility] Basophil abs 0.02 0.00 - 0.10 K/cumm [facility] Neutrophil pct 80.4 % [facility] Comment: Interpretive Data Percent cell count reference ranges are not reported, since discordance with absolute values may lead to misinterpretation of CBC data. Current Interpretive Data was last revised on 2017. Imm gran pct 0.4 % [facility] Comment: Interpretive Data Percent cell count reference ranges are not reported, since discordance with absolute values may lead to misinterpretation of CBC data. Current Interpretive Data was last revised on 2017. Lymphocyte pct 7.9 % KATHIE Comment: Interpretive Data Percent cell count reference ranges are not reported, since discordance with absolute values may lead to misinterpretation of CBC data. Current Interpretive Data was last revised on 2017. Monocyte pct 8.7 % KATHIE Comment: Interpretive Data Percent cell count reference ranges are not reported, since discordance with absolute values may lead to misinterpretation of CBC data. Current Interpretive Data was last revised on 2017. Eosinophil pct 2.2 % [facility] Comment: Interpretive Data Percent cell count reference ranges are not reported, since discordance with absolute values may lead to misinterpretation of CBC data. Current Interpretive Data was last revised on 2017. Basophil pct 0.4 % [facility]IE Comment: Interpretive Data Percent cell count reference ranges are not reported, since discordance with absolute values may lead to misinterpretation of CBC data. Current Interpretive Data was last revised on 2017. Blood 04/14/2025 7:18 PM CDT 04/14/2025 7:32 PM CDT us Disha JIMENEZ LAB BLOOD ORDERABLES Final Resu lt KATHIE [address] [facility] Department of Laboratories [place], [place] [id number] * (ABNORMAL) CBC with auto differential (04/14/2025 7:18 PM CDT) WBC 5.41 3.80 - 9.90 K/cumm Hgb 6.0(C) 11.9 - 15.5 g/dL KATHIE Comment:This result has been called to [id number](boarding house manager) by [id number] on 04/14/2025 19:39:08, and has been read back. Hct 19.5(L) 35.6 - 45.5 % KATHIE Plt 167 150 - 400 K/cumm [facility]IE MPV 10.2 9.1 - 12.3 fL [facility] RBC 1.66(L) 3.90 - 5.20 M/cumm [facility] MCV 117.5(H) 81.3 - 96.4 fL [facility] MCH 36.1(H) 27.1 - 33.3 pg KATHIE MCHC 30.8(L) 32.3 - 35.7 g/dL [facility] RDW CV 18.6(H) 11.1 - 14.9 % [facility] RDW SD 78.3(H) 35.7 - 48.1 fL KATHIE NRBC abs 0.00 0.00 - 0.01 K/cumm KATHIE Blood 04/14/2025 7:18 PM CDT 04/14/2025 7:32 PM CDT us Disha JIMENEZ LAB BLOOD ORDERABLES Final Resu lt KATHIE FOY [address] [facility] [place] [address] * Blood culture Blood Peripheral (04/14/2025 7:18 PM CDT) Report Final Report: No growth Comment:Testing performed by : [facility], [address] [facility], [place]., [address] Blood (Peripheral) 04/14/2025 7:18 PM CDT 04/14/2025 [...] performance characteristics have been verified by the [facility]. For questions about this culture, contact the Microbiology Laboratory at [phone]. Interpretive data was last revised on 24. Jonh Galvez MD LAB MICROBIOLOGY - GENERAL ORDERABLES Final Result Performing Organization Address [facility] Co de Phone Number [address] [place] [address] * (ABNORMAL) Phosphorus (04/14/2025 7:18 PM CDT) [facility] Phosphorus, pl 1.9(L) 2.3 - 4.5 mg/dL Blood 04/14/2025 7:18 PM CDT 04/14/2025 7:32 PM CDT Jude Schroeder MD LAB BLOOD ORDERABLES Final Result Performing Organization Address [facility] de Phone Number [address] [address] * Magnesium (04/14/2025 7:18 PM CDT) [facility] Magnesium 2.4 1.4 - 2.5 mg/dL Blood 04/14/2025 7:18 PM CDT 04/14/2025 7:32 PM CDT Jude Schroeder MD LAB BLOOD ORDERABLES Final Result Performing Organization Address [facility] Co de Phone Number [address] [place] [address] * (ABNORMAL) Comprehensive metabolic panel (04/14/2025 7:18 PM CDT) [facility] Sodium 138 135 - 145 mmol/L Potassium, pl 3.3 3.3 - 4.9 mmol/L [facility] Chloride 107 97 - 110 mmol/L [facility] CO2 26 22 - 32 mmol/L [facility] Anion gap 5 2 - 15 mmol/L [facility] BUN 6 6 - 25 mg/dL [facility] Creatinine 0.64 0.60 - 1.10 mg/dL [facility] Glucose 116 70 - 199 mg/dL [facility] Comment: Interpretive Data Fasting glucose >/= 126 [...] 2022. Calcium 8.6 8.5 - 10.3 mg/dL [facility] Bilirubin, total 1.0 0.1 - 1.2 mg/dL [facility] Protein, pl 6.2(L) 6.5 - 8.5 g/dL [facility] Albumin 2.6(L) 3.5 - 5.0 g/dL [facility] Alk phos 92 40 - 130 Units/L [facility] ALT 6(L) 7 - 45 Units/L [facility] AST 30 10 - 45 Units/L [facility] Blood 04/14/2025 7:18 PM CDT 04/14/2025 7:32 PM CDT us Jonh Galvez MD LAB BLOOD ORDERABLE S Final Result [facility] [address] [facility] Department [place] [address] * XR Ankle Right 3 or More [...] by Shayan Taylor M.D. T: Report ID: [id number] Reading Location: [place] [address] Procedure Note Shayan Taylor MD - 04/14/2025 [...] by Shayan Taylor M.D. T: Report ID: [id number] Reading Location: [id number] Disha JIMENEZ IMG XR PROCEDURES Final Result [...] by Shayan Taylor M.D. T: Report ID: [id number] Reading Location: [id number] Procedure Note Shayan Taylor MD - 04/14/2025 [...] by Shayan Taylor M.D. T: Report ID: [id number] Reading Location: [id number] us Disha JIMENEZ IMG XR PROCEDURES Final Result * Urinalysis reflex to microscopic and culture Urine, clean voided (04/14/2025 12:13 PM CDT) Color, ur Yellow Yellow Clarity, ur Clear Clear [facility] Specific gravity, ur 1.019 1.003 - 1.030 [facility] pH, urine 8.0 [facility] Comment: Interpretive Data U rine pH is affected by diet, medications, systemic acid-base disturbances, and renal tubular function. pH may affect urinary stone formation. For example, urine pH below 6.0 may help reduce the tendency for calcium phosphate stones and pH greater than 6.0 may reduce the tendency for uric acid stone formation. Source: [facility] Walk-in Appointment Scheduler Current Interpretive Data was last revised on 2017 Protein, ur ql Negative Negative [facility] Glucose, ur ql Negative Negative [facility] Ketones, ur Negative Negative [facility] Bilirubin, ur Negative Negative [facility] Blood, ur Negative Negative [facility] Urobilinogen, ur <2.0 <2.0 mg/dL [facility] Nitrite, ur Negative Negative [facility] Leukocyte esterase, ur Negative Negative [facility] UA reflex comment Reflex conditions for microscopic UA and culture not met. [facility] Urine, clean voided 04/14/2025 12:13 PM CDT 04/14/2025 12:21 PM CDT Candie Preciado IN [employer] LAB MICROBIOLOGY - G ENERAL ORDERABLES Final Result [facility] [address] [facility] Department of Laboratories [place], [place] [id number] * eGFR (04/14/2025 11:35 AM CDT) eGFR >90 >=60 mL/min/1. 73 [...] Jiménez MD LAB BLOOD ORDERABLES Final Result [place] [address] [facility] [place] [address] * (ABNORMAL) Differential, auto (04/14/2025 11:35 AM CDT) Neutrophil abs 6.62(H) 1.50 - 6.50 K/cumm Imm gran abs 0.01 0.00 - 0.10 K/cumm [facility] Lymphocyte abs 0.36(L) 0.80 - 3.30 K/cumm [facility] Monocyte abs 0.59 0.20 - 0.80 K/cumm [facility] Eosinophil abs 0.08 0.00 - 0.50 K/cumm [facility] Basophil abs 0.04 0.00 - 0.10 K/cumm [facility] Neutrophil pct 86.0 % [facility] Comment: Interpretive Data Percent cell count reference ranges are not reported, since discordance with absolute values may lead to misinterpretation of CBC data. Current Interpretive Data was last revised on 2017. Imm gran pct 0.1 % [facility] Comment: Interpretive Data Percent cell count reference ranges are not reported, since discordance with absolute values may lead to misinterpretation of CBC data. Current Interpretive Data was last revised on 2017. Lymphocyte pct 4.7 % [facility] Comment: Interpretive Data Percent cell count reference ranges are not reported, since discordance with absolute values may lead to misinterpretation of CBC data. Current Interpretive Data was last revised on 2017. Monocyte pct 7.7 % [facility] Comment: Interpretive Data Percent cell count reference ranges are not reported, since discordance with absolute values may lead to misinterpretation of CBC data. Current Interpretive Data was last revised on 2017. Eosinophil pct 1.0 % [facility] Comment: Interpretive Data Percent cell count reference ranges are not reported, since discordance with absolute values may lead to misinterpretation of CBC data. Current Interpretive Data was last revised on 2017. Basophil pct 0.5 % [facility] Comment: Interpretive Data Percent cell count reference ranges are not reported, since discordance with absolute values may lead to misinterpretation of CBC data. Current Interpretive Data was last revised on 2017. Blood 04/14/2025 11:3 5 AM CDT 04/14/2025 11:37 AM CDT José Luis Jiménez MD LAB BLOOD ORDERABLES Final Result [place] [id number] [facility] [place] [address] * (ABNORMAL) CBC with auto differential (04/14/2025 11:35 AM CDT) WBC 7.70 3.80 - 9.90 K/cumm Hgb 7.2(L) 11.9 - 15.5 g/dL [facility] Hct 22.9(L) 35.6 - 45.5 % [facility] Plt 201 150 - 400 K/cumm [facility] MPV 10.5 9.1 - 12.3 fL [facility] RBC 1.98(L) 3.90 - 5.20 M/cumm [facility] MCV 115.7(H) 81.3 - 96.4 fL [facility] MCH 36.4(H) 27.1 - 33.3 pg [facility] MCHC 31.4(L) 32.3 - 35.7 g/dL [facility] RDW CV 18.7(H) 11.1 - 14.9 % [facility] RDW SD 78.1(H) 35.7 - 48.1 fL [facility] NRBC abs 0.00 0.00 - 0.01 K/cumm [facility] Blood 04/14/2025 11:3 5 AM CDT 04/14/2025 11:37 AM CDT José Luis Jiménez MD LAB BLOOD ORDERABLES Final Result Performing Organization Address [facility] de Phone Number [address] [address] * ABO/Rh (04/14/2025 11:35 AM CDT) Pathologist [facility] ABO/Rh A Positive Blood 04/14/2025 11:3 5 AM CDT 04/14/2025 11:37 AM CDT Narrative [facility] - 04/14/2025 12:42 PM CDT Is this test being ordered in advance for a procedure?->Yes Expected date of procedure:->04/13/25 Has the patient been transfused in the past 3 months?->No Has the patient been in the past 3 months?->No Result [facility] José Luis Jiménez MD LAB BLOOD BANK TEST ORDERAB LES Final Result Performing Organization Address [facility] de Phone Number [address] [address] * (ABNORMAL) aPTT (04/14/2025 11:35 AM CDT) aPTT 46(H) 22 - 37 sec Comment: Interpretive data aPTT test has not been evaluated for monitoring heparin therapy. The anti-Xa is the preferred test. Current interpretive data was last revised on 2019. Blood 04/14/2025 11:3 5 AM CDT 04/14/2025 11:36 AM CDT José Luis Jiménez MD LAB BLOOD ORDERABLES Final Result [address] [place] [address] * (ABNORMAL) Protime-INR (04/14/2025 11:35 AM CDT) Pathologist [facility] PT 22.70(H) 12.00 - 14.60 sec INR 2.02(H) 0.90 - 1.20 [facility] Comment: Interpretive data Oral anticoagulant therapeutic ranges: Venous thromboembolism prophylaxis or treatment: 2.0-3.0 CARDIOLOGY Standard range: 2.0-3.0 High-intensity range: 2.5-3.5 Refer to indication-specific guidelines for appropriate target ranges for prosthetic heart valve replacement. Current interpretive data was last revised on 2019. Blood 04/14/2025 11:3 5 AM CDT 04/14/2025 11:36 AM CDT José Luis Jiménez MD LAB BLOOD ORDERABLES Final Result Performing Organization Address [facility] de Phone Number [address] [address] [address] * Crossmatch (04/14/2025 11:35 AM CDT) Pathologist [facility] Crossmatch Compatible [facility] Unit number for crossmatch [id number] [facility] Crossmatch Compatible [facility] Unit number for crossmatch [id number] [facility] Blood 04/14/2025 11:3 5 AM CDT 04/14/2025 11:37 AM CDT José Luis Jiménez MD LAB BLOOD BANK TEST ORDERAB LES Edited Result - Final Performing Organization Address [facility] Co de Phone Number [address] [address] * Antibody screen (04/14/2025 11:35 AM CDT) Pathologist [facility] Susan, indirect, Gel Interpretation Negative ABSC Blood 04/14/2025 11:3 5 AM CDT 04/14/2025 11:37 AM CDT Narrative KATHIE - 04/14/2025 12:42 PM CDT Is this test being ordered in advance for a procedure?->Yes Expected date of procedure:->04/13/25 Has the patient been transfused in the past 3 months?->No Has the patient been in the past 3 months?->No José Luis Jiménez MD LAB BLOOD BANK TEST ORDERAB LES Final Result KATHIE [address] [facility] Department [place] [address] * (ABNORMAL) Comprehensive metabolic panel (04/14/2025 11:35 AM CDT) Pathologist [facility] Sodium 138 135 - 145 mmol/L Potassium, pl 3.8 3.3 - 4.9 mmol/L [facility] Chloride 102 97 - 110 mmol/L [facility] CO2 28 22 - 32 mmol/L [facility] Anion gap 8 2 - 15 mmol/L [facility] BUN 8 6 - 25 mg/dL [facility] Creatinine 0.66 0.60 - 1.10 mg/dL [facility] Glucose 106 70 - 199 mg/dL [facility] Comment: Interpretive Data Fasting glucose >/= 126 [...] 2022. Calcium 9.9 8.5 - 10.3 mg/dL [facility] Bilirubin, total 1.3(H) 0.1 - 1.2 mg/dL [facility] Protein, pl 7.4 6.5 - 8.5 g/dL [facility] Albumin 3.1(L) 3.5 - 5.0 g/dL [facility] Alk phos 111 40 - 130 Units/L [facility] ALT 8 7 - 45 Units/L [facility] AST 36 10 - 45 Units/L [facility] Blood 04/14/2025 11:3 5 AM CDT 04/14/2025 11:37 AM CDT José Luis Jiménez MD LAB BLOOD ORDERABLES Final Result KATHIE FOY [address] [facility] Department [place] [address] * PET/CT FDG Skull to Thigh (04/14/2025 [...] lymphadenopathy is consistent with metastatic disease. A event sales representative right supraclavicular lymph node measuring 2.3 [...] right abdomen. Bilateral hypermetabolic inguinal lymphadenopathy. A event sales representative left inguinal lymph node measures 2.8 [...] Shayan Rocha M.D. LB: VANDANA Report ID: [id number] Reading Location: [id number] Procedure Note Shayan Rocha MD - 04/14/2025 [...] lymphadenopathy is consistent with metastatic disease. A event sales representative right supraclavicular lymph node measuring 2.3 [...] right abdomen. Bilateral hypermetabolic inguinal lymphadenopathy. A event sales representative left inguinallymph node measures 2.8 x [...] Shayan Rocha M.D. LB: LB Report ID: [id number] Reading Location: [id number] Sascha Donohue MD IMG PET PROCEDURES Final Resul t * POCT glucose (04/14/2025 8:43 AM CDT) Glucose, POC 97 70 - 199 mg/dL Comment:Testing performed by : [facility], [address] [place] [address], [id number] Blood 04/14/2025 8:43 AM CDT 04/14/2025 8:43 AM CDT Sascha Donohue MD LAB POCT ORDERABLES - DEVICE F inal Result Performing Organization Address [facility] Co de Phone Number [place] [id number] [facility] [place] [address] * Occult blood, fecal non neoplasm screening (08/26/2013 6:00 AM C[facility]) Stool Occult Blood NEGATIVE NEGATIVE 08/26/2013 6:00 AM [facility] [place] 08/26/2013 7:31 AM [facility] [place] Narrative [facility] HISTORICAL RESULTS - 08/26/2013 8:07 AM C[facility] [place] Collected By 193 Stephanie Singh MD LAB BODY FLUIDS AND STOOLS ORD ERABLES Final Result [facility] HISTORICAL RESULTS * FLEXIBLE SIGMOIDOSCOPY REPORT (07/17/2012) Anatomical Region Laterality Modality Other Narrative 07/17/2012 Ordered by an unspecified provider. 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
--- OUTSIDE RECORDS SUMMARY | 2025-06-14 09:52 | XMS_ITS | Encounter Summary ---
Author Organization [facility] Address [address] [facility] [address] Care Team Providers Care Entertainment Agent Name Role Phone Unavailable Primary Care Provider Unavailabl e Encounter Details Date Type Department Care Team (Late st Contact Info) Description 05/25/2025 Lab Requisition [facility] - Pathology Lab [address] [place] [address] Leo Jones MD [address] [facility] [address] [place] [phone] Illness, unspecified Social History Tobacco Use Types Packs/Day Years Used Date Smoking Tobacco: Never Assessed Comments Unknown Sex and Gender Information Value Date Recorded Sex Assigned at Not on file Legal Sex Female 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 Gender Identity Not on file Sexual Orientation Not on file documented as of this encounter Plan of Treatment Not on file documented as of this encounter Procedures Procedure Name Priority Date/Time Associated Diagnosis Comments BONE MARROW BIOPSY (STL) Routine 05/23/2025 9:00 AM TIEING MACHINE OPERATOR Illness, unspecified documented in this encounter Results * BONE MARROW BIOPSY (STL) (05/23/2025 9:00 AM TIEING MACHINE OPERATOR) Case Report Bone Marrow Patholog y Report Case: [id number] Authorizing Provider: Leo Jones MD Collected: 05/23/2025 09:00 AM Ordering Location: [facility] - Received: 05/25/2025 04:35 PM Pathology Lab Pathologist: Sabrina Holden MD Specimens: A) - Bone Marrow Clot B) - Bone Marrow Core 05/31/2025 1:11 PM [facility] Final Diagnosis Bone marrow, aspirate, clot section, and core biopsy: - Slightly hypercellular marrow with mild myeloid and megakaryocytic hyperplasia. - No evidence of lymphoma or high-grade myeloid neoplasm. - See description. 05/31/2025 1:11 PM [facility] at [address] TIEING MACHINE OPERATOR AP Comment Immunohistochemistry is performed to assess staining cells in an architectural context: CD117 and tryptase show increased singly dispersed mast cells, but no atypical clusters of mast cells are seen. CD61 highlights mildly increased megakaryocytes of which a subset is small and hypolobated in appearance. CD34 is negative for increased blasts. Pankeratin is negative for metastatic disease. Overtly dysplastic features are not seen in this study. Correlation with cytogenetic and molecular studies is recommended to assess for an early evolving myeloid stem cell disorder. 05/31/2025 1:11 PM [facility] Peripheral Smear Description Not provided for review. 05/31/2025 1:11 PM [facility] Bone Marrow Aspirate Differential count (200 cells): 0% blasts, 65% maturing myeloid precursors, 14% erythroid progenitors, 8% monocytes, 5% eosinophils, 8% lymphocytes, -% plasma cells. Specimen quality: adequate. Spicules: many. Trilineage Hematopoiesis: present. Myeloid:Erythroid ratio: elevated, 4.6. Myeloid Maturation: normal. Hypogranulation seen, likely artifact. Erythroid Maturation: normal. Megakaryocyte morphology: normal size. Mast cells are easily seen. Storage iron (by special stain): increased. Sideroblastic iron (by special stain): a rare ring sideroblasts. 05/31/2025 1:11 PM [facility] Bone Marrow Core Biopsy and Clot Section Description Specimen quality: adequate with 1.3 cm of evaluable marrow. Cellularity: 60% Trilineage Hematopoiesis: present. Myeloid to Erythroid ratio: normal. Myeloid maturation and localization: normal. Erythroid maturation and localization: normal. Megakaryocyte number: increased. Megakaryocyte distribution: normal. Lymphoid aggregates: absent. Bone trabeculae: thin. Plasma cells: normal. No metastatic carcinoma seen. Clot section marrow particles: many. Clot section morphology: similar to core biopsy. 05/31/2025 1:11 PM [facility] Flow Cytometry Summary Bone marrow, flow cytometry ([id number]): - No immunophenotypic evidence of B-cell non-Hodgkin lymphoma or high grade myeloid neoplasm. 05/31/2025 1:11 PM [facility] Clinical History Metastatic breast cancer. Pancytopenia. 05/31/2025 1:11 PM [facility] Materials Received Received are 22 slide(s) and 4 block(s) labeled [id number] along with a copy of the outside pathology report. [place] [address]. All original materials are returned to the referring institution, along with a copy of our final report. 05/31/2025 1:11 PM [facility] Pathologist Location at [facility] 05/31/2025 1:11 PM [facility] Disclaimer The performance characteristics of all immunohistochemical and indirect immunofluorescence stains (if any) cited in this report were determined by the Histopathology Laboratory of [facility]. Some of these tests were developed by our own laboratory and have not been cleared or approved by the US Food and Drug Administration. The FDA does not require this test to go through premarket FDA review. These tests are used for clinical purposes. They should not be regarded as investigational or for research. This laboratory is certified under the Clinical Laboratory Improvement Amendments (CLIA) as qualified to perform high complexity clinical laboratory testing. This case has been personally reviewed and interpreted by the attending (teaching) pathologist. 05/31/2025 1:11 PM [facility] Addendum 1 The reticulin stain shows no increased reticulin fibers. Original diagnosis remains unchanged. 05/31/2025 1:11 PM [facility] Addendum electronically signed by Sabrina Holden MD on 05/31/2025 at 1311 TIEING MACHINE OPERATOR Embedded Images 05/31/2025 1:11 PM [facility] Pathology/Cytology BONE MARROW SPECIMEN / Unknown 05/23/2025 9:00 AM TIEING MACHINE OPERATOR 05/25/2025 4:35 PM TIEING MACHINE OPERATOR Miscellaneous samples (specimen) BONE MARROW SPECIMEN / Unknown 05/23/2025 9:00 AM TIEING MACHINE OPERATOR 05/25/2025 4:35 PM TIEING MACHINE OPERATOR us Leo Jones MD LAB - PATHOLOGY/CYTOLOGY ORDERAB LES Edited Result - Final [facility] PATHOLOGY LAB [address] [place] [address], [facility] [phone] documented in this encounter Visit Diagnoses Diagnosis Illness, unspecified documented in this encounter
--- OUTSIDE RECORDS SUMMARY | 2025-06-14 09:52 | XMS_ITS | Encounter Summary ---
Author Organization [facility] Address [address] [place] [address] Care Team Providers Care High Pressure Operator Name Role Phone Nayely Singh MD Primary Care Provider [phone] Encounter Details Date Type Department Care Team [...] on file Legal Sex Female 5:41 AM SENIOR SVP Gender Identity Not on file Sexual Orientation Not on file documented as of this encounter Plan of Treatment Upcoming Encounters Date Type Department Care Team (Late st Contact Info) Description 06/15/2025 4:30 PM SENIOR SVP Telephone Check Up [facility] - [place] [address] [place] [address] [address] [place] [address] Sascha Donohue MD [address] [facility] [address] [place] [address] documented as of this encounter Procedures Procedure Name Priority Date/Time Associated Diagnosis Comments XR FOOT 3+ VW LEFT Routine 08/07/2008 6: 50 PM SENIOR SVP CBC WITH DIFFERENTIAL Stat 08/07/2008 6:45 PM SENIOR SVP SEDIMENTATION RATE Stat 08/07/2008 6: 45 PM SENIOR SVP D-DIMER Stat 08/07/2008 6:45 PM SENIOR SVP C-REACTIVE PROTEIN Stat 08/07/2008 6: 45 PM SENIOR SVP CARBAMAZEPINE LEVEL Stat 08/07/2008 6 :45 PM SENIOR SVP COMPREHENSIVE METABOLIC PANEL Stat 08/07/2008 6:45 PM SENIOR SVP documented in this encounter Results * XR FOOT 3+ VW LEFT (08/07/2008 6:50 PM SENIOR SVP) Anatomical Region Laterality Modality Ankle / Foot Other 08/07/2008 6:50 PM SENIOR SVP Narrative 08/07/2008 7:09 PM SENIOR SVP [facility] [address] [place], [place] [address] Admit Date: 08/07/2008 RACQUEL THOMAS Sex: F Admit Prov: ER, AUTHORIZED P Date: 1960 Primary Care Prov: CMRN: [id number] [facility]: [address] [place] [address] IMAGING SERVICES Ordering Prov: N/A Accession Number: [id number] Interpretation Exam: Left foot, 3 views on [...] Procedure Note Mayte Bender MD - 08/07/2008 [facility] [address] [place], [place] [address] Admit Date: 08/07/2008 RACQUEL THOMAS Sex: F Admit Prov: ER, AUTHORIZED P Date: 1960 Primary Care Prov: CMRN: [id number] Room: ER-A N: [id number] IMAGING SERVICES Ordering Prov: N/A Interpretation Exam: [...] (ABNORMAL) CBC WITH DIFFERENTIAL (08/07/2008 6:45 PM SENIOR SVP) RBC 4.05 3.90 - 4.90 M/uL [facility] MCHC 34.6 31.5 - 35.5 % [facility] MCV 97.8 82.0 - 99.0 fL [facility] HEMOGLOBIN 13.7 11.8 - 14.8 g/dL [facility] RDW 12.8 11.5 - 14.5 % [facility] WBC 6.0 4.0 - 9.8 K/uL [facility] MCH 33.8(H) 27.2 - 32.6 pg [facility] HEMATOCRIT 39.6 35.5 - 44.0 % [facility] RDW-STDEV 44.9 37.1 - 48.7 fL [facility] NEUTROPHILS 58 45 - 70 % [facility] NEUTROPHIL ABSOLUTE 3.42 1.90 - 7.00 K/uL [facility] EOSINOPHILS 4 0 - 7 % [facility] EOSINOPHIL ABSOLUTE 0.22 0.00 - 0.70 K/uL [facility] LYMPHOCYTES 33 16 - 45 % [facility] LYMPHOCYTE ABSOLUTE 1.97 0.70 - 4.50 K/uL [facility] BASOPHILS 0 0 - 2 % [facility] BASOPHILS ABSOLUTE 0.01 0.00 - 0.20 K/uL [facility] MONOCYTES 6 3 - 13 % [facility] MONOCYTE ABSOLUTE 0.33 0.10 - 1.30 K/uL [facility] MPV 10.3 9.3 - 12.4 fL [facility] PLATELETS 163 140 - 350 K/uL [facility] Blood specimen (specimen) 08/07/2008 6:45 PM SENIOR SVP 08/07/2008 6:48 PM SENIOR SVP Sumit Camargo MD HEMATOLOGY ORDERABLES Edited Performing Organization Address [facility] Phone Number INTERFACE SYSTEM Refer to clinic/hospital department [facility] CLIA# [id number] [address] [place] [address] * SEDIMENTATION RATE (08/07/2008 6:45 PM SENIOR SVP) ESR (SEDIMENTATION RATE) 8 0 - 20 mm/hr [facility] Blood specimen (specimen) 08/07/2008 6:45 PM SENIOR SVP 08/07/2008 6:48 PM SENIOR SVP us Sumit Camargo MD HEMATOLOGY ORDERABLES Final Re sult Performing Organization Address [facility] de Phone Number INTERFACE SYSTEM Refer to clinic/hospital department [facility] CLIA# [id number] [address] [place] [address] * CARBAMAZEPINE LEVEL (08/07/2008 6:45 PM SENIOR SVP) CARBAMAZEPINE LEVEL 9.4 4.0 - 12.0 ug/mL [facility] Comment:Carbamazepine Toxic Level => 20 ug/mL Blood specimen (specimen) 08/07/2008 6:45 PM SENIOR SVP 08/07/2008 6:48 PM SENIOR SVP Sumit Camargo MD CHEMISTRY ORDERABLES Final Res ult Performing Organization Address [facility] Phone Number INTERFACE SYSTEM Refer to clinic/hospital department [facility] CLIA# [id number] [address] [place] [address] * (ABNORMAL) D-DIMER (08/07/2008 6:45 PM SENIOR SVP) D-DIMER QUANT 0.52(H) <=0.42 ug/mL FEU [facility] Comment: DVT Screen reference range <0.45 [...] stratification. Blood specimen (specimen) 08/07/2008 6:45 PM SENIOR SVP 08/07/2008 6:48 PM SENIOR SVP Sumit Camargo MD HEMATOLOGY ORDERABLES Final Re sult Performing Organization Address [facility] Phone Number INTERFACE SYSTEM Refer to clinic/hospital department [facility] CLIA# [id number] [address] [place] [address] * C-REACTIVE PROTEIN (08/07/2008 6:45 PM SENIOR SVP) [facility] CRP <0.2 0.0 - 0.8 mg/dL [facility] Blood specimen (specimen) 08/07/2008 6:45 PM SENIOR SVP 08/07/2008 6:48 PM SENIOR SVP Sumit Camargo MD CHEMISTRY ORDERABLES Final Res ult Performing Organization Address [facility] Phone Number INTERFACE SYSTEM Refer to clinic/hospital department [facility] CLIA# [id number] [address] [place] [address] * (ABNORMAL) COMPREHENSIVE METABOLIC PANEL (08/07/2008 6:45 PM SENIOR SVP) POTASSIUM 3.6 3.5 - 4.9 mmol/L [facility] TOTAL PROTEIN 7.0 6.3 - 8.6 g/dL [facility] GLUCOSE 79 65 - 99 mg/dL [facility] AST 21 12 - 32 U/L [facility] BUN 8 6 - 20 mg/dL [facility] CALCIUM 9.9 8.6 - 10.2 mg/dL [facility] ALBUMIN 4.3 3.4 - 4.8 g/dL [facility] CHLORIDE 104 96 - 108 mmol/L [facility] CREATININE 0.55 0.51 - 0.95 mg/dL [facility] ALT 16 0 - 31 U/L [facility] SODIUM 137 135 - 145 mmol/L [facility] ALKALINE PHOSPHATASE 112(H) 35 - 104 U/L [facility] CO2 26 22 - 30 mmol/L [facility] BILIRUBIN TOTAL 0.4 0.2 - 1.0 mg/dL [facility] GFR, >60 >=60 mL/min/1. 7 sq meter [facility] GFR >60 >=60 mL/min/1. 7 sq meter [facility] Comment: Modification of Diet in Renal Disease (MDRD) study formula. Estimated GFR rate interpretative information for both Americans and non- Americans is available on the [facility] Intranet at: [email or web address] Select: Lab Policies and Procedures Select: Reference Ranges - GFR Blood specimen (specimen) 08/07/2008 6:45 PM SENIOR SVP 08/07/2008 6:48 PM SENIOR SVP us Sumit Camargo MD CHEMISTRY ORDERABLES Edited INTERFACE SYSTEM Refer to clinic/hospital department [facility] CLIA# [id number] [address] [place] [address] documented in this encounter Visit Diagnoses Not on filedocumented in this encounter Care Teams High Pressure Operator Relationship Specialty Start Date End Date Nayely Singh MD [address] [place] [address] PCP - General Family Practice 12/10/23 documented as of this encounter
--- OUTSIDE RECORDS SUMMARY | 2025-06-14 09:52 | XMS_ITS | Encounter Summary ---
Author Organization [facility] Address [address] [place] [address] Care Team Providers Care Corporate Real Estate Manager Name Role Phone Unavailable Primary Care Provider Unavailabl e Encounter Details Date Type Department Care Team (Late st Contact Info) Description 05/24/2025 Lab Requisition [facility] [place] [facility] - Pathology Lab [address] [place] [address] Gordon Varghese MD [address] [facility] [address] [place] [id number] Anemia, unspecified Social History Tobacco Use Types Packs/Day Years Used Date Smoking Tobacco: Never Assessed Comments Unknown Sex and Gender Information Value Date Recorded Sex Assigned at Not on file Legal Sex Female 1:25 PM GROUP LEADER Gender Identity Not on file Sexual Orientation Not on file documented as of this encounter Plan of Treatment Not on file documented as of this encounter Procedures Procedure Name Priority Date/Time Associated Diagnosis Comments FLOW CYTOMETRY BONE MARROW Routine 05/24/2025 9:00 AM GROUP LEADER Anemia, unspecified documented in this encounter Results * FLOW CYTOMETRY BONE MARROW (05/24/2025 9:00 AM GROUP LEADER) Case Report Flow Cytometry Case: [id number] Authorizing Provider: Gordon Varghese Collected: 05/24/2025 09:00 AM MD Maicol Ordering Location: [facility] - Received: 05/24/2025 02:14 PM Pathology Lab Pathologist: Brody Benjamin MD Specimen: Bone Marrow 05/24/2025 4:56 PM GROUP LEADER U PATHOLOGY LAB Final Diagnosis Bone marrow, flow cytometry: - No immunophenotypic evidence of B-cell non-Hodgkin lymphoma or high grade myeloid neoplasm. 05/24/2025 4:[address] [facility] at 1656 GROUP LEADER Flow Cytometry Interpretation Viability: 98% B-cells: polytypic, kappa:lambda ratio 1:1. Blasts: no increase in myeloblasts observed (0.2% of total events/cells). Plasma cells: rare polytypic plasma cells detected. MRD sent: No A bone marrow aspirate smear prepared from the flow cytometry specimen has been reviewed for ict quality assurance engineer purposes. 05/24/2025 4:[address] [facility] Flow Cytometry Results Differential Result Comment Flow Cell Count /uL 12,000 Total Viability % 98.0 Lymphocytes % 5 Dim CD45 Region % 2 Monocytes % 5 Granulocytes % 88 05/24/2025 4:[address] [facility] Reason for test Anemia, unspecified 285.9 H/o poorly differentiated invasive mammary carcinoma, stage III disease clinically. 05/24/2025 4:[address] [facility] Client Specimen ID # [id number] 05/24/2025 4:[address] [facility] Number of markers 14 were performed. A-2 Flow CD10 A-3 Flow CD13 A-5 Flow CD20 A-13 Flow CD117 A-14 FLOW CD138 A-1 Flow CD5 A-4 Flow CD19 A-6 Flow CD33 A-7 Flow CD34 A-8 Flow CD45 A-11 Flow CD38 A-12 Flow CD56 A-9 [place]+CD19+ A-10 Lambda+CD19+ 05/24/2025 4:[address] [facility] Pathologist Location at [facility] 05/24/2025 4:[address] [facility] Disclaimer Test performed at [facility], [address] [place], [place], [address]. *The established laboratory minimum viability is 70%. Values below the minimum may result in the failure to find an abnormal population of cells. This test was developed and its performance characteristics determined by the Flow Cytometry Laboratory. It has not been cleared by the [place] Food and Drug Administration (FDA). The FDA has determined that such clearance or approval is not necessary. This test is used for clinical purposes. It should not be regarded as investigational or for research. This laboratory is regulated under the Clinical Laboratory Improvement Amendments of 1998 (CLIA) as a qualified to perform high complexity clinical testing. 05/24/2025 4:56 PM GROUP LEADER [facility] Embedded Images 4:56 PM GROUP LEADER [facility] Pathology/Cytolo gy BONE MARROW SPECIMEN / Unknown 05/24/2025 9:00 AM GROUP LEADER 05/24/2025 2:14 PM GROUP LEADER Gordon Varghese MD LAB - PATHOLOGY/CYT OLOGY ORDERABLES Final Result [facility] [address] [place] [address], [facility] [phone] documented in this encounter Visit Diagnoses Diagnosis Anemia, unspecified documented in this encounter
--- OUTSIDE RECORDS SUMMARY | 2025-06-14 09:52 | XMS_ITS | Patient Health Record ---
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
--- OUTSIDE RECORDS SUMMARY | 2025-06-14 09:52 | XMS_ITS | Clinical Summary ---
Author Organization [facility] Address [address] [facility] [place] [address] Care Team Providers Care Supervisor Of Way Name Role Phone Unavailable Primary Care Provider Unavailabl e Source Comments [facility],non-owned Affiliates and Associated Physician Practices is amultiple site organization consisting of ambulatory clinics and hospital sitesin [place], [place], [place] and [place]. This disclosure is being madepursuant to the Care Everywhere program and may not contain all information available regarding this patient. Last updated 18.[facility] Encounters Date Type Department Care Team Description 05/25/2025 Lab Requisition [facility] - Pathology Lab [address] [place] [address] Leo Jones MD Illness, unspecified 05/24/2025 Lab Requisition [facility] - Pathology Lab [address] [place] [address] Gordon Varghese MD Anemia, unspecified from Last 3 Months Social History Tobacco Use Types Packs/Day Years Used Date Smoking Tobacco: Never Assessed Comments Unknown Sex and Gender Information Value Date Recorded Sex Assigned at Not on file Legal Sex Female 1:25 PM NUMERICAL CONTROL NESTING OPERATOR Gender Identity Not on file Sexual Orientation Not on file Plan of Treatment Health Maintenance Due Date Last Done Comments COLOGUARD (AGES 45-75) - COL ON CA SCREENING 1962 COLON MONITORING 1962 COLONOSCOPY - COLON CA SCREENING 1962 CT COLONOGRAPHY - COLON CA SCREENING 1962 Colorectal Cancer Screening 1962 FIT - COLON CA SCREENING 1962 FLEX SIG - COLON CA SCREENING 1962 LIPID TESTING 1962 MAMMOGRAM 1962 HIV SCREENING 1977 HEPATITIS C SCREENING 08/15/1980 DTAP/TDAP/TD VACCINES (1 - Tdap) 1981 PNEUMOCOCCAL VACCINE 50+ (1 of 2 - PCV) 1981 ZOSTER VACCINE (1 of 2) 1981 PAP SMEAR 1983 DEPRESSION SCREENING 06/30/2024 MEDICARE AWV CALENDAR YEAR 2024 COVID-19 VACCINE (1 - 2024-2 6 season) 2025 INFLUENZA VACCINE (#1) 2025 Respiratory Syncytial Virus (RSV) Vaccine Pt: or over 60 yrs (1 - 1-dose 75+ series) 2037 HEPATITIS B VACCINE Aged Out No longe r eligible based on patient's age to complete this topic HIB VACCINE Aged Out No longer eligi ble based on patient's age to complete this topic HPV VACCINE Aged Out No longer eligi ble based on patient's age to complete this topic MENINGOCOCCAL (Group B) VACC INE SHARED DECISION-MAKING Aged Out No longer eligibl e based on patient's age to complete this topic MENINGOCOCCAL GROUPS A/C/Y/W VACCINE Aged Out No longer eligible b ased on patient's age to complete this topic Procedures Procedure Name Priority Date/Time Associated Diagnosis Comments FLOW CYTOMETRY BONE MARROW Routine 05/24/2025 9:00 AM NUMERICAL CONTROL NESTING OPERATOR Anemia, unspecified BONE MARROW BIOPSY (STL) Routine 05/23/2025 9:00 AM NUMERICAL CONTROL NESTING OPERATOR Illness, unspecified from Last 3 Months Results * FLOW CYTOMETRY BONE MARROW (05/24/2025 9:00 AM NUMERICAL CONTROL NESTING OPERATOR) Case Report Flow Cytometry Case: [id number] Authorizing Provider: Gordon Varghese Collected: 05/24/2025 09:00 AM MD Maicol Ordering Location: [facility] - Received: 05/24/2025 02:14 PM Pathology Lab Pathologist: Brody Benjamin MD Specimen: Bone Marrow 05/24/2025 4:56 PM NUMERICAL CONTROL NESTING OPERATOR U PATHOLOGY LAB Final Diagnosis Bone marrow, flow cytometry: - No immunophenotypic evidence of B-cell non-Hodgkin lymphoma or high grade myeloid neoplasm. 05/24/2025 4:56 PM [facility] at 1656 NUMERICAL CONTROL NESTING OPERATOR Flow Cytometry Interpretation Viability: 98% B-cells: polytypic, kappa:lambda ratio 1:1. Blasts: no increase in myeloblasts observed (0.2% of total events/cells). Plasma cells: rare polytypic plasma cells detected. MRD sent: No A bone marrow aspirate smear prepared from the flow cytometry specimen has been reviewed for quality system manager purposes. 05/24/2025 4:56 PM [facility] Flow Cytometry Results Differential Result Comment Flow Cell Count /uL 12,000 Total Viability % 98.0 Lymphocytes % 5 Dim CD45 Region % 2 Monocytes % 5 Granulocytes % 88 05/24/2025 4:56 PM [facility] Reason for test Anemia, unspecified 285.9 H/o poorly differentiated invasive mammary carcinoma, stage III disease clinically. 05/24/2025 4:56 PM [facility] Client Specimen ID # [id number] 05/24/2025 4:56 PM [facility] Number of markers 14 were performed. A-2 Flow CD10 A-3 Flow CD13 A-5 Flow CD20 A-13 Flow CD117 A-14 FLOW CD138 A-1 Flow CD5 A-4 Flow CD19 A-6 Flow CD33 A-7 Flow CD34 A-8 Flow CD45 A-11 Flow CD38 A-12 Flow CD56 A-9 [place]+CD19+ A-10 Lambda+CD19+ 05/24/2025 4:56 PM [facility] Pathologist Location at [facility] 05/24/2025 4:56 PM [facility] Disclaimer Test performed at [facility], [address] [place] [address], [address]. *The established laboratory minimum viability is 70%. [...] high complexity clinical testing. 05/24/2025 4:56 PM [facility] Embedded Images 4:56 PM [facility] Pathology/Cytolo gy BONE MARROW SPECIMEN / Unknown 05/24/2025 9:00 AM NUMERICAL CONTROL NESTING OPERATOR 05/24/2025 2:14 PM NUMERICAL CONTROL NESTING OPERATOR Gordon Varghese MD LAB - PATHOLOGY/CYT OLOGY ORDERABLES Final Result [facility] [address] [place] [address], [facility] [phone] * BONE MARROW BIOPSY (STL) (05/23/2025 9:00 AM NUMERICAL CONTROL NESTING OPERATOR) Case Report Bone Marrow Patholog y Report Case: [id number] Authorizing Provider: Leo Jones MD Collected: 05/23/2025 09:00 AM Ordering Location: [facility] - Received: 05/25/2025 04:35 PM Pathology Lab Pathologist: Sabrina Holden MD Specimens: A) - Bone Marrow Clot B) - Bone Marrow Core 05/31/2025 1:11 PM [facility] Final Diagnosis Bone marrow, aspirate, clot section, and core biopsy: - Slightly hypercellular marrow with mild myeloid and megakaryocytic hyperplasia. - No evidence of lymphoma or high-grade myeloid neoplasm. - See description. 05/31/2025 1:11 PM [facility] at 1[address] NUMERICAL CONTROL NESTING OPERATOR AP Comment Immunohistochemistry is performed to [...] myeloid stem cell disorder. 05/31/2025 1:11 PM [facility] Peripheral Smear Description Not provided for review. 05/31/2025 1:11 PM [facility] Bone Marrow Aspirate Differential count [...] a rare ring sideroblasts. 05/31/2025 1:11 PM [facility] Bone Marrow Core Biopsy and [...] similar to core biopsy. 05/31/2025 1:11 PM [facility] Flow Cytometry Summary Bone marrow, flow cytometry ([id number]): - No immunophenotypic evidence of B-cell non-Hodgkin lymphoma or high grade myeloid neoplasm. 05/31/2025 1:11 PM [facility] Clinical History Metastatic breast cancer. Pancytopenia. 05/31/2025 1:11 PM [facility] Materials Received Received are 22 slide(s) and 4 block(s) labeled [id number] along with a copy of the outside pathology report[place] [address]. All original materials are returned to the referring institution, along with a copy of our final report. 05/31/2025 1:11 PM [facility] Pathologist Location at [facility] 05/31/2025 1:11 PM [facility] Disclaimer The performance characteristics of all immunohistochemical and indirect immunofluorescence stains (if any) cited in this report were determined by the Histopathology Laboratory of [facility]. Some of these tests were developed by [...] the attending (teaching) pathologist. 05/31/2025 1:11 PM NUMERICAL CONTROL NESTING OPERATOR U PATHOLOGY LAB Addendum 1 The reticulin stain shows no increased reticulin fibers. Original diagnosis remains unchanged. 05/31/2025 1:11 PM NUMERICAL CONTROL NESTING OPERATOR U PATH[facility] LAB Addendum electronically signed by Sabrian Holden MD on 05/31/2025 at 1311 NUMERICAL CONTROL NESTING OPERATOR Embedded Images 05/31/2025 1:11 PM NUMERICAL CONTROL NESTING OPERATOR U PATHOLOGY LAB Pathology/Cytology BONE MARROW SPECIMEN / Unknown 05/23/2025 9:00 AM NUMERICAL CONTROL NESTING OPERATOR 05/25/2025 4:35 PM NUMERICAL CONTROL NESTING OPERATOR Miscellaneous samples (specimen) BONE MARROW SPECIMEN / Unknown 05/23/2025 9:00 AM NUMERICAL CONTROL NESTING OPERATOR 05/25/2025 4:35 PM NUMERICAL CONTROL NESTING OPERATOR Leo Jones MD LAB - PATHOLOGY/CYTOLOGY ORDERAB LES Edited Result - Final [facility] [address] [place] [address], [facility] [phone] from Last 3 Months Insurance [facility] MANAGED MEDICARE ADV MEDICAID [place] SELF PAY NO INSURANCE Member Subscriber Plan / Payer (Ef fective for All Dates) Name:Racquel Thomas Member ID:Not on file Relation to Subscriber:Not on file Name:RACQUEL THOMAS Subscriber ID:Not on file (Home) Address: [address] [place] [address] Payer ID:Not on file Group ID:Not on file Type:Self Pay Address: [facility] MANAGED MEDICARE ADV * Guarantor: RACQUEL THOMAS Account Type Relation to Patient Date of Phone Billing Address Personal/Family [address] [place] [address] MEDICAID [facility] MANAGED MEDICARE ADV
[2025-06-14] MEDS: HYDROmorphone HCL INJ (*CRX) 1 MG/ML SYR IV PUSH (12:20)
[2025-06-14] MEDS: MIDAZOLAM HCL (*CRX) 2 MG/2 ML VIAL IV PUSH (12:22)
[2025-06-14] MEDS: SODIUM CHLORIDE 0.9% IV 250 ML 30 ML IV CONT (13:43)
[2025-06-14] MEDS: TUBING, BLOOD PLUM PUMP TUBING 1 EACH XX (13:43)
--- NOTE | 2025-06-14 13:54 | PCCCNOTE ---
1200- was called to ER to discuss with pt regarding comfort care/hospice options. Upon arrival to pts room pt was crying and writhing in pain requesting meds. Pts RN came to room and gave pt IV pain meds. I discussed with pt and spouse about comfort care verses hospice and pt stated that she would like to see if she could try Chemo again and requesting to speak with MD. Dr Rahman in to see pt plan discusses and the decision for admit was decided due to cont'd Tx wanted and pain control needed, Cr
--- NOTE | 2025-06-14 14:50 | WPCEDHO ---
ED Hand Off Checklist All vitals saved: yes IV Site documented: yes All med administrations documented: yes Triage Note Triage Note pt to ED from home via [facility] 06/14/25 07:13 for c/o difficulty swallowing/ talking/eating/drinking/taking meds. EMS reports pt had a biopsy on her throat nodules on 06/07, believes it was at [facility] and ever since pt has had difficulty with swallowing/ talking/eating/drinking/taking meds. EMS reports pt boyfriend has been giving her an unknown medication, believed to be ivermectin. pt believes the nodule has gotten bigger since the surgery. HX leukemia Allergies No Known Allergies Allergy (Verified 06/14/25 13:47) Family History (Last Reviewed 09/28/24 @ 11:33 by Yina Verdin CNA) Mother Diabetes mellitus Sibling Diabetes mellitus Cervical cancer Sibling Leukemia Sibling Lung cancer Sibling Liver cancer Sibling Lung cancer Other Family history of arthritis Family history of cancer Active Medications including assessments/comments Heparin Sodium (Beef Lung) (Heparin Flush 50 Units/5 Ml Syringe) 50 units IV PUSH QAM RAYO Last Admin: 06/14/25 09:18 Dose: Not Given Documented By: LIO Non-Admin Reason: No Dose Required Sodium Chloride (Normal Saline Iv) 250 mls @ 30 mls/hr IV CONT .Q8H20M STA Stop: 06/14/25 20:16 Last Admin: 06/14/25 13:43 Dose: 30 mls/hr Documented By: LIO Infusion/Titration Document 06/14/25 13:43 LIO (Rec: 06/14/25 13:43 LIO [id number]) Intake IV Site Port-a-Cath Left Chest Container Volume 250 Waste Amount 0 Dosing Infusion Rate 30 Cumulative Dose Not Applicable Increase/Decrease Started Elapsed Time Elapsed Time ( 0m minutes) Sodium Chloride (Central Line Flush) 10 ml IV PUSH Q8HR RAYO Last Admin: 06/14/25 14:46 Dose: Not Given Documented By: LIO Non-Admin Reason: No Dose Required Administered/Completed Medications Discontinued Medications Hydromorphone HCl (Hydromorphone Hcl Inj (*Crx) 1 Mg/Ml Syr) 1 mg IV PUSH ONCE STA Stop: 06/14/25 12:09 Last Admin: 06/14/25 12:20 Dose: 1 mg Documented By: LIO Lactated Ringer's (Lr - Lactated Ringers Iv) 1,000 mls @ 999 mls/hr IV CONT .Q1H1M STA Stop: 06/14/25 08:42 Last Infusion: 06/14/25 09:26 Dose: Infused Documented By: Admin: 06/14/25 08:25 Dose: 999 mls/hr Documented By: LIO Lactated Ringer's (Lr - Lactated Ringers Iv) 1,000 mls @ 999 mls/hr IV CONT .Q1H1M STA Stop: 06/14/25 12:13 Last Infusion: 06/14/25 12:19 Dose: Infused Documented By: Admin: 06/14/25 11:18 Dose: 999 mls/hr Documented By: LYNNE IV Miscellaneous Supplies (Tubing, Blood [place] Pump Tubing) Confirm Administered Dose 1 each XX .STK-MED ONE Stop: 06/14/25 12:13 Last Admin: 06/14/25 13:43 Dose: 1 each Documented By: LIO Midazolam HCl (Midazolam Hcl (*Crx) 2 Mg/2 Ml Vial) 2 mg IV PUSH ONCE ONE Stop: 06/14/25 12:09 Last Admin: 06/14/25 12:22 Dose: 2 mg Documented By: LIO Notes 06/14/25 13:54 Care Coordination Note by Suyapa Bragg- was called to ER to discuss with pt regarding comfort care/hospice options. Upon arrival to pts room pt was crying and writhing in pain requesting meds. Pts RN came to room and gave pt IV pain meds. I discussed with pt and spouse about comfort care verses hospice and pt stated that she would like to see if she could try Chemo again and requesting to speak with MD. Dr Rahman in to see pt plan discusses and the decision for admit was decided due to cont'd Tx wanted and pain control needed, Cr Initialized on 06/14/25 13:54 - END OF NOTE Interventions/Assessments IV Line Assessment Start: 06/14/25 07:09 Freq: Status: Active Protocol: Document 06/14/25 08:17 LIO (Rec: 06/14/25 08:18 LIO [id number]) IV Assessment Port-a-Cath Left Chest IV Catheter Access Initiated IV Insertion Date 12/16/25 IV Insertion Time 08:18 IV Insertion 1 Attempts IV Site Assessment WNL IV Care and WNL Maintenance PA: HEENT Assessment Start: 06/14/25 07:09 Freq: Status: Active Protocol: Document 06/14/25 07:30 KNW (Rec: 06/14/25 07:30 KNW [id number]) Head and Neck Assessment Neck Symptoms Lumps,Swelling Neck Movement Limited Range of Motion,Pain with Movement Throat Symptoms/ Hoarseness,Swallowing Difficulty,Swelling Appearance Last Vital Signs Temperature 98.7 F 06/14/25 13:57 Pulse Rate 78 06/14/25 13:57 Respiratory Rate 14 06/14/25 13:57 Pulse Oximetry 96 06/14/25 13:57 Blood Pressure 121/47 L 06/14/25 13:57 Blood Pressure Mean 71 06/14/25 13:57 Blood Pressure Position Supine 06/14/25 13:57 Oxygen Delivery Room Air 06/14/25 07:13 Weight 65.6 kg 06/14/25 07:13 Last Result - Abnormals Only RBC 2.07 M/mm3 (4.2-5.4) L 06/14/25 08:18 Hgb 7.7 g/dL (12.0-15.0) L 06/14/25 08:18 Hct 24.2 % (37.0-47.0) L 06/14/25 08:18 MCV 116.9 fl (80-100) H 06/14/25 08:18 MCH 37.2 pg (26-34) H 06/14/25 08:18 MCHC 31.8 g/dl (32-36) L 06/14/25 08:18 RDW 22.7 % (11.5-14.5) H 06/14/25 08:18 Neut % (Auto) 86.0 % (45.5-73.1) H 06/14/25 08:18 Lymph % (Auto) 3.7 % (18.3-44.2) L 06/14/25 08:18 Lymph # (Auto) 0.27 K/mm3 (0.9-3.2) L 06/14/25 08:18 Absolute Nucleated RBC 0.020 K/mm3 (0.0-0.012) H 06/14/25 08:18 Nucleated RBC % 0.3 % (0.0-0.2) H 06/14/25 08:18 Creatinine 0.69 mg/dL (0.7-1.0) L 06/14/25 08:18 Total Bilirubin 1.8 mg/dL (0.2-1.3) H 06/14/25 08:18 AST 50 U/L (14-36) H 06/14/25 08:18 Alkaline Phosphatase 148 U/L (38-126) H 06/14/25 08:18 Albumin 3.3 g/dL (3.5-5.1) L 06/14/25 08:18 Crossmatch See Detail 06/14/25 12:18 Most Recent Suicide Severity Rating Suicide Severity Rating NO RISK INDICATED 06/14/25 07:13
--- NOTE | 2025-06-14 18:01 | P.HP_ITS ---
H&P: HPI History of Present Illness Date/Time: 06/14/25 18:01 Chief Complaint: Dysphagia Narrative: 64-year-old female with a past medical history of metastatic breast ca, PAD, DVT, HLD, incarcerated ventral hernia S/P ostomy, aneurysm rupture at age 20 w/left side residual presents to the ED on 06/14/2025 with complaints of dysphagia and difficulty talking since about 06/07 when she had a biopsy. Patient has poor health literacy and is a poor historian. Patient [facility] and [facility], making it difficult to track her care. She was recently hospitalized from 04/14-04/21 at [facility] for sepsis due to her BL LE ulcers. She underwent debridement on 04/20 and was treated with PO abx. Patient did undergo a bone marrow biopsy on 05/24 and she did have a biopsy of her right supraclavicular mass on 05/10 (the results are not consistent with her previous breast ca). Unclear what biopsy the patient had on 06/07. Her and her boyfriend at the bedside state they believe she had ?something put down her throat during the biopsy and at first attributed her dysphagia and hoarseness to that. Patient denies any recent fevers. She does have chronic pain from her back and her chronic leg ulcers. When the patient began speaking her voice is clear but quiet. It quickly fades to barely a whisper. Patient eating dinner during my assessment without d ifficulty or coughing. Patient states she is able to take her medications but she had choked on a piece of ice this morning. Initial vital signs 105/53, HR 79, respirations 12, afebrile and 100% on room air. Hematology with no leukocytosis. Hemoglobin 7.7 with improvement 8.7 post 1 unit PRBC. Total bilirubin 1.8, AST 50, alk-phos 148. CT soft tissue neck reads extensive lymphadenopathy which appears to be necrotizing in the right supraclavicular region and extending into the mediastinum below the field of view. CTA chest reads trace pericardial effusion, extensive malignant appearing lymp hadenopathy throughout the mediastinum and numerous bilateral lung nodules consistent with advanced metastatic disease. The vascular pedicle is almost completely encased in lymphadenopathy/tumor. Airway and arterial structures are patent. No pulmonary emboli or dissection. 3 cm mass in the right chest wall soft tissue. 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 Residual left-sided weakness. Invasive ductal carcinoma of right breast, stage 3 Chronic pain syndrome Chronic back pain and lower extremity pain due to venous stasis ulcers. On long-term opioids and medical marijuana. Inflammatory bowel disease Seizure disorder Cerebral aneurysm Status post coiling. Surgical History Surgical History History of colostomy History of craniotomy Related to cerebral aneurysm rupture and hemorrhagic stroke at the age of 20. History of 2 sections History of hysterectomy Status post coil embolization of cerebral aneurysm Family History Family History Mother Diabetes mellitus Sibling Diabetes mellitus Cervical cancer Sibling Leukemia Sibling Lung cancer Sibling Liver cancer Sibling Lung cancer Other Family history of arthritis Family history of cancer Social History Social History Social History: Surrogate decision maker: Seymour Urias, . Code status: Full code. Smoking packs per day: 2 Smoking cigarettes per day: 40.0 Years smoked: 5 Smoking pack-years: 10.00 Smoking status: Former smoker Tobacco type: cigarettes Second hand tobacco smoke exposure: No Alcohol intake: never Substance use: never Substance use type: does not use Lack of Transportation: No Lack of Food: Never True Current Housing: I Have Housing Concerned About Future Housing: No Difficulty Paying Gas/Electric Bills: No Difficulty Paying for Meds: No Currently Unemployed: No Education: High School Diploma/GED Difficulty w/ Childcare or Family Care: No Living arrangements: with roommate(s) Additional living arrangements comments: Resides in [place] with her . Additional occupation/education comments: Disabled. Spiritual care concerns: No Meds Home Medications and Allergies Home Medications ?Medication ?Instructions ?Recorded ?Confirmed ?Type ferrous sulfate 324 mg (65 mg 324 mg PO BID 02/13/24 1 08/15/24 History iron) tablet,delayed release oxycodone 30 mg tablet 30 mg PO DAILY PRN Pain (Sca le 02/13/24 06/14/25 History Score 7-10) mecobalamin (vitamin B12) 5,000 5,000 mcg PO DAILY 06/14/25 History mcg chewable tablet methadone 10 mg tablet 30 mg PO DAILY 07/23/2405/30 History rivaroxaban 20 mg tablet (Xarelto) 20 mg PO DAILY #90 tabs 09/24/24 06/14/25 Rx cholecalciferol (vitamin D3) 25 25 mcg PO DAILY 06/14/25 History mcg (1,000 unit) capsule colostomy bags #15 ea 10/28/24 06/14/25 Rx furosemide 40 mg tablet 40 mg PO DAILY #90 tabs 07/2406/14/25 Rx ostomy supplies 4 X 4 wafer #30 wafers 10/28/2405/30 Rx tamoxifen 20 mg tablet 20 mg PO DAILY 11/12/2405/30 History montelukast 10 mg tablet 10 mg PO QPM #90 tabs 06/14/25 Rx doxycycline hyclate 100 mg capsule 100 mg PO BID 05/2306/14/25 History Allergies Allergy/AdvReac Type Severity Reaction Status Date / Time No Known Allergies Allergy Verified 06/14/25 16:40 Vital Signs Vital Signs - 24 hr 06/14/25 07:13 06/14/25 07:34 06/14/25 08:26 Temperature 98.0 F Pulse Rate 79 76 75 Respiratory Rate 12 17 17 Blood Pressure 105/53 L 103/23 L 138/53 L Pulse Oximetry 100 100 99 Oxygen Delivery Room Air 06/14/25 08:31 06/14/25 10:30 06/14/25 11:30 Temperature Pulse Rate 75 81 77 Respiratory Rate 16 18 15 Blood Pressure 126/54 L 104/83 115/51 L Pulse Oximetry 98 98 98 Oxygen Delivery 06/14/25 12:00 06/14/25 13:30 06/14/25 13:39 Temperature 98.4 F Pulse Rate 82 81 87 Respiratory Rate 20 16 20 Blood Pressure 121/59 L 119/47 L 119/47 L Pulse Oximetry 99 91 93 Oxygen Delivery 06/14/25 13:57 06/14/25 14:57 06/14/25 15:57 Temperature 98.7 F 97.8 F 97.7 F Pulse Rate 78 81 71 Respiratory Rate 14 15 15 Blood Pressure 121/47 L 120/47 L 104/40 L Pulse Oximetry 96 92 100 Oxygen Delivery 06/14/25 17:15 Temperature 98.2 F Pulse Rate 72 Respiratory Rate 18 Blood Pressure 116/54 L Pulse Oximetry 98 Oxygen Delivery Exam Narrative: GENERAL: Chronically ill-appearing HEAD: Normocephalic, atraumatic. EYES: PERRLA. Conjunctivae clear. NOSE: Normal no drainage. THROAT: Pharynx clear, no exudate. NECK: Obvious lymphadenopathy to the right subclavicular region. Tender with palpation RESPIRATORY: Airway patent, respirations nonlabored. Diminished bilaterally CARDIOVASCULAR: Regular rate and rhythm BREASTS: Previous right mastectomy GASTROINTESTINAL: Abdomen is soft and nontender. No organomegaly. Bowel sounds normal in all quadrants. GENITOURINARY: Distended bladder MUSCULOSKELETAL: Left-sided weakness SKIN: Warm, dry, normal color. NEURO: A&O X4. Speech clear PSYCHIATRIC: Normal interaction Results Labs Labs: Short CBC 06/14/25 Range/Units 08:18 WBC 7.2 (4.5-10.0) K/mm3 Hgb 7.7 L (12.0-15.0) g/dL Hct 24.2 L (37.0-47.0) % Plt Count 168 (150-375) k/mm3 [facility] 06/14/25 08:18 Sodium 139 Potassium 3.6 Chloride 105 Carbon Dioxide 28 BUN 10 Creatinine 0.69 L Glucose 103 Calcium 9.8 Liver Function 06/14/25 Range/Units 08:18 Total Bilirubin 1.8 H (0.2-1.3) mg/dL AST 50 H (14-36) U/L ALT 13 (6-35) U/L Alkaline Phosphatase 148 H (38-126) U/L Albumin 3.3 L (3.5-5.1) g/dL Quality VTE Prophylaxis VTE prophylaxis: pharmacologic ordered Assessment and Plan Assessment and plan (1) Supraclavicular mass: Code(s): R22.2 - Localized swelling, mass and lump, trunk Status: Acute Assessment and Plan: Right supraclavicular lymphadenopathy appeared within the past couple of months, concerning for malignancy. Biopsy on 05/10 revealed metastatic poorly differentiated carcinoma of unknown primary site. Positive CK7 with negative CK20. Positive control for Ki 67 shows an increased index suggesting a mitotic active cancer. -oncology consult -unclear if this is related to the patient's difficulty in speaking. However, CT does show patent arterial and airway structures. -MANAGER OF PROCUREMENT consult to assess for possible vocal cord dysfunction (2) Urinary retention: Code(s): R33.9 - Retention of urine, unspecified Status: Acute Assessment and Plan: Patient unable to void after admission. >550 on bladder scan. Unclear etiology. -Hubbard placed -plan for void trial prior to DC (3) Venous stasis ulcers of both lower extremities: Code(s): I83.019 - Varicose veins of right lower extremity with ulcer of unspecified site ; I83.029 - Varicose veins of left lower extremity with ulcer of unspecified site; L97.919 - Non-pressure chronic ulcer of unspecified part of right lower leg with unspecified severity; L97.929 - Non-pressure chronic ulcer of unspecified part of left lower leg with unspecified severity Status: Chronic Assessment and Plan: Patient has had several admissions at [facility] for her ulcerations. -consult wound care -continue doxycycline (4) Chronic pain syndrome: Code(s): G89.4 - Chronic pain syndrome Status: Chronic Assessment and Plan: Patient has chronic pain related to her back, leg ulcerations, and metastatic disease. -continue methadone and oxycodone -monitor for adverse effects (5) Goals of care, counseling/discussion: Code(s): Z71.89 - Other specified counseling Status: Acute Assessment and Plan: Conversation held at bedside with patient, boyfriend, and sisters. Patient and family had briefly discussed options in care in the ED as patient is not interested in receiving radiation therapy to her sub clavicular mass. Educated on the differences between palliative care and hospice care. Patient and family are open to hospice and have had positive experiences with previous family members on hospice. Care coordination is consulted and plans to follow-up with patient and family on 06/15. Patient is DNR. (6) Anemia associated with chemotherapy: Code(s): D64.81 - Anemia due to antineoplastic chemotherapy; T45.1X5A - Adverse effect of antineoplastic and immunosuppressive drugs, initial encounter Status: Chronic Assessment and Plan: Patient requires frequent blood transfusions. S/p 1 unit PRBC today. Likely component of myelodysplastic syndrome. -trend H&H Plan Diet: Regular DVT prophylaxis: Xarelto lines/drains: PIV Fluids: 2 L LR bolus Code status: DNR Prior Studies I have reviewed the following patient records and this information was taken into consideration when formulating the assessment and plan.: previous labs, previous ER visits, previous hospitalizations and previous clinic visits Time Spent with Patient Time with patient: 45 - 74 minutes Hospitalist [facility] Advance Care Plan I have confirmed that the patient's Advanced Care Plan is present, code status is documented, or surrogate decision maker is listed in patient medical record.: Yes Medication Reconciliation I have utilized all available resources to obtain, update and review the patients current medications (includes all prescriptions, OTC, herbals, cannabis, and nutritional supplements).: Yes
[2025-06-14 19:29] LABS: Hematocrit 26.6 % (37.0-47.0); Hemoglobin 8.7 g/dL (12.0-15.0)
[2025-06-14] MEDS: MONTELUKAST SODIUM 10 MG TABLET PO (21:31)
[2025-06-14] MEDS: DOXYCYCLINE HYCLATE 100 MG TABLET PO (21:31)
[2025-06-14] MEDS: CENTRAL LINE FLUSH 10 ML IV PUSH (22:54)
[2025-06-15 04:45] LABS: Hematocrit 25.4 % (37.0-47.0); Hemoglobin 8.2 g/dL (12.0-15.0); Immature Granulocyte Percent A 0.4 % (0-0.5); Lymphocytes Absolute Auto 0.43 K/mm3 (0.9-3.2); Mean Corpuscular HGB Conc 32.3 g/dl (32-36); Mean Corpuscular Hemoglobin 36.1 pg (26-34); Mean Corpuscular Volume 111.9 fl (80-100); Nucleated Red Blood Cells Absolute Auto 0.000 K/mm3 (0.0-0.012); Nucleated Red Blood Cells Perc 0.0 % (0.0-0.2); Platelet Count Result 159 k/mm3 (150-375); Red Blood Count 2.27 M/mm3 (4.2-5.4); White Blood Count 7.0 K/mm3 (4.5-10.0)
[2025-06-15 05:15] LABS: Anion Gap 5 mmol/L (4-12); Blood Urea Nitrogen 5 mg/dL (7-17); Calcium 9.1 mg/dL (8.4-10.2); Carbon Dioxide 25 mmol/L (22-30); Chloride 108 mmol/L (98-107); Estimated CRCL calculation 75 ml/min; Estimated Glomerular Filt Rate > 60; Glucose 97 mg/dL (65-110); Potassium 3.4 mmol/L (3.4-5.0); Sodium 138 mmol/L (137-145)
[2025-06-15 05:17] LABS: Anisocytosis 1+; Burr Cells 1+; Hypochromasia 1+; Schistocytes None Seen
[2025-06-15 05:58] VITALS: BP 130/60; PULSE 74; RESP 20; TEMP 36.8; O2SAT 93
[2025-06-15] MEDS: CENTRAL LINE FLUSH 10 ML IV PUSH ×2 (06:06→21:51)
[2025-06-15] MEDS: OXYCODONE HCL 10 MG 30 MG PO (06:14)
[2025-06-15] MEDS: TAMOXIFEN CITRATE (*CHEMO) 10 MG TABLET 20 MG PO (08:20)
[2025-06-15] MEDS: methADONE HCL (*CRX) 10 MG TABLET 30 MG PO (08:23)
[2025-06-15] MEDS: CYANOCOBALAMIN 1,000 MCG TABLET 5000 MCG PO (08:27)
[2025-06-15] MEDS: CHOLECALCIFEROL (VITAMIN D3) 25 MCG (1,000 UNITS) TABLET PO (08:27)
[2025-06-15] MEDS: FUROSEMIDE 40 MG TABLET PO (08:27)
[2025-06-15] MEDS: DOXYCYCLINE HYCLATE 100 MG TABLET PO ×2 (08:27→20:37)
[2025-06-15] MEDS: FERROUS SULFATE 325 MG TABLET PO ×2 (08:27→17:50)
--- NOTE | 2025-06-15 10:51 | P.PNIM_ITS ---
Assessment and Plan Assessment and Plan (1) Supraclavicular mass: Code(s): R22.2 - Localized swelling, mass and lump, trunk Status: Acute Assessment and Plan: Right supraclavicular lymphadenopathy appeared within the past couple of months, concerning for malignancy. Biopsy on 05/10 revealed metastatic poorly differentiated carcinoma of unknown primary site. Positive CK7 with negative CK20. Positive control for Ki 67 shows an increased index suggesting a mitotic active cancer. -oncology consult -unclear if this is related to the patient's difficulty in speaking. However, CT does show patent arterial and airway structures. -VOTING MACHINE REPAIRER consult to assess for possible vocal cord dysfunction (2) Urinary retention: Code(s): R33.9 - Retention of urine, unspecified Status: Acute Assessment and Plan: Patient unable to void after admission. >550 on bladder scan. Unclear etiology. -Hubbard placed -plan for void trial prior to DC (3) Venous stasis ulcers of both lower extremities: Code(s): I83.019 - Varicose veins of right lower extremity with ulcer of unspecified site; I83.029 - Varicose veins of left lower extremity with ulcer of unspecified site; L97.919 - Non-pressure chronic ulcer of unspecified part of right lower leg with unspecified severity; L97.929 - Non-pressure chronic ulcer of unspecified part of left lower leg with unspecified severity Status: Chronic Assessment and Plan: Patient has had several admissions at [facility] for her ulcerations. -consult wound care -continue doxycycline (4) Chronic pain syndrome: Code(s): G89.4 - Chronic pain syndrome Status: Chronic Assessment and Plan: Patient has chronic pain related to her back, leg ulcerations, and metastatic disease. -continue methadone and oxycodone -monitor for adverse effects (5) Goals of care, counseling/discussion: Code(s): Z71.89 - Other specified counseling Status: Acute Assessment and Plan: Conversation held at bedside with patient, boyfriend, and sisters. Patient and family had briefly discussed options in care in the ED as patient is not interested in receiving radiation therapy to her sub clavicular mass. Educated on the differences between palliative care and hospice care. Patient and family are open to hospice and have had positive experiences with previous family members on hospice. Care coordination is consulted and plans to follow-up with patient and family on 06/15. Patient is DNR. pt wants to discuss option with oncologist before making decisions (6) Anemia associated with chemotherapy: Code(s): D64.81 - Anemia due to antineoplastic chemotherapy; T45.1X5A - Adverse effect of antineoplastic and immunosuppressive drugs, initial encounter Status: Chronic Assessment and Plan: Patient requires frequent blood transfusions. S/p 1 unit PRBC today. Likely com ponent of myelodysplastic syndrome. -trend H&H Plan Diet: Regular DVT prophylaxis: Xarelto lines/drains: PIV Fluids: 2 L LR bolus Code status: DNR Medical Record Review I have reviewed the following patient records and this information was taken into consideration when formulating the assessment and plan.: previous labs Time Spent With Patient Time with patient: Greater than 35 minutes Subjective Date/time seen: 06/15/25 10:51 Interval history: 64-year-old female with a past medical history of metastatic breast ca, PAD, DVT, HLD, incarcerated ventral hernia S/P ostomy, aneurysm rupture at age 20 w/left side residual presents to the ED on 06/14/2025 with complaints of dysphagia and difficulty talking since about 06/07 when she had a biopsy. Patient has poor health literacy and is a poor historian. Patient receives care between [facility] and [facility], making it difficult to track her care. She was recently hospitalized from 04/14-04/21 at [facility] for sepsis due to her BL LE ulcers. She underwent debridement on 04/20 and was treated with PO abx. Patient did undergo a bone marrow biopsy on 05/24 and she did have a biopsy of her right supraclavicular mass on 05/10 (the results are not consistent with her previous breast ca). Unclear what biopsy the patient had on 06/07. Her and her boyfriend at the bedside state they believe she had ?something put down her throat during the biopsy and at first attributed her dysphagia and hoarseness to that. Patient denies any recent fevers. She does have chronic pain from her back and her chronic leg ulcers. Initial vital signs 105/53, HR 79, respirations 12, afebrile and 100% on room air. Hematology with no leukocytosis. Hemoglobin 7.7 with improvement 8.7 post 1 unit PRBC. Total bilirubin 1.8, AST 50, alk-phos 148. CT soft tissue neck reads extensive lymphadenopathy which appears to be necrotizing in the right supraclavicular region and extending into the mediastinum below the field of view. CTA chest reads trace pericardial effusion, extensive malignant appearing lymphadenopathy throughout the mediastinum and numerous bilateral lung nodules consistent with advanced metastatic disease. The vascular pedicle is almost completely encased in lymphadenopathy/tumor. Airway and arterial structures are patent. No pulmonary emboli or dissection. 3 cm mass in the right chest wall soft tissue. Pt is seen and examined. Oncology was consulted. she is resting in beds, eating and drinking ok. no episodes of choking. speech therapist at the bedside. reports chronic pain, just received pain med. Review of Systems Review of Systems: All systems reviewed & are unremarkable except as noted in HPI and below Exam Narrative: GENERAL: Chronically ill-appearing HEAD: Normocephalic, atraumatic. EYES: PERRLA. Conjunctivae clear. NOSE: Normal no drainage. THROAT: Pharynx clear, no exudate. NECK: Obvious lymphadenopathy to the right subclavicular region. Tender with palpation RESPIRATORY: Airway patent, respirations nonlabored. Diminished bilaterally CARDIOVASCULAR: Regular rate and rhythm BREASTS: Previous right mastectomy GASTROINTESTINAL: Abdomen is soft and nontender. No organomegaly. Bowel sounds normal in all quadrants. GENITOURINARY: Distended bladder MUSCULOSKELETAL: Left-sided weakness SKIN: Warm, dry, normal color. NEURO: A&O X4. Speech clear PSYCHIATRIC: Normal interaction Const: General: comfortable Objective Data Vital Signs Vital Signs: Vital Signs - 24 hr 06/14/25 11:30 06/14/25 12:00 06/14/25 13:30 Temperature Pulse Rate 77 82 81 Respiratory Rate 15 20 16 Blood Pressure 115/51 L 121/59 L 119/47 L Pulse Oximetry 98 99 91 Oxygen Delivery 06/14/25 13:39 06/14/25 13:57 06/14/25 14:57 Temperature 98.4 F 98.7 F 97.8 F Pulse Rate 87 78 81 Respiratory Rate 20 14 15 Blood Pressure 119/47 L 121/47 L 120/47 L Pulse Oximetry 93 96 92 Oxygen Delivery 12/16/25 15:57 06/14/25 17:15 06/14/25 20:00 Temperature 97.7 F 98.2 F Pulse Rate 71 72 80 Respiratory Rate 15 18 20 Blood Pressure 104/40 L 116/54 L Pulse Oximetry 100 98 95 Oxygen Delivery Room Air 06/14/25 21:17 06/15/25 05:58 Temperature 99.2 F 98.2 F Pulse Rate 80 74 Respiratory Rate 20 20 Blood Pressure 124/60 130/60 Pulse Oximetry 95 93 Oxygen Delivery Intake/Output Intake/Output: Intake & Output 06/12/25 06/13/25 06/14/25 06/15/25 23:59 23:59 23:59 23:59 Intake Total 2830 100 Output Total 1000 260 Balance 1830 -160 Meds/Results Medications: Active Medications Generic Name Dose Route Start Last Admin Trade Name Freq PRN Reason Stop Dose Admin Cyanocobalamin 5,000 mcg 06/15/25 09:00 06/15/25 08:27 Cyanocobalamin 1,000 Mcg Tablet PO 5,000 mcg QAM RAYO Administration Doxycycline Hyclate 100 mg 06/14/25 21:20 06/15/25 08:27 Doxycycline Hyclate 100 Mg Tablet PO 100 mg Q12HR RAYO Administration Ferrous Sulfate 325 mg 06/15/25 08:00 06/15/25 08:27 Ferrous Sulfate 325 Mg Tablet PO 325 mg BIDWM RAYO Administration Furosemide 40 mg 06/15/25 09:00 06/15/25 08:27 Furosemide 40 Mg Tablet PO 40 mg DAILY RAYO Administration Heparin Sodium (Beef Lung) 50 units 06/14/25 09:00 06/15/25 08:27 Heparin Flush 50 Units/5 Ml Syringe IV PUSH 50 units QAM RAYO Administration Heparin Sodium (Beef Lung) 50 units 06/14/25 08:15 Heparin Flush 50 Units/5 Ml Syringe IV PUSH PRN PRN after intermittent infusion Heparin Sodium (Beef Lung) 50 units 06/14/25 08:15 Heparin Flush 50 Units/5 Ml Syringe IV PUSH PRN PRN after blood draws Heparin Sodium (Porcine) 500 units 06/14/25 08:15 Heparin Sodium Lock Flush 500 Units/5 Ml Syringe IV PUSH PRN PRN see comments below Methadone HCl 30 mg 06/15/25 09:00 06/15/25 08:23 Methadone Hcl (*Crx) 10 Mg Tablet PO 30 mg DAILY RAYO Administration Montelukast Sodium 10 mg 06/14/25 20:55 06/14/25 21:31 Montelukast Sodium 10 Mg Tablet PO 10 mg QPM RAYO Administration Oxycodone HCl 30 mg 06/14/25 21:56 06/15/25 06:14 Oxycodone Hcl (*Crx) 10 Mg Tab Ir PO 30 mg DAILY PRN Administration Pain (Scale Score 7-10) Rivaroxaban 20 mg 06/15/25 17:00 Rivaroxaban 20 Mg Tablet PO DAILY@1700 [facility] Sodium Chloride 10 ml 06/14/25 14:00 06/15/25 06:06 Central Line Flush IV PUSH 10 ml Q8HR RAYO Administration Tamoxifen Citrate 20 mg 06/15/25 09:00 06/15/25 08:20 Tamoxifen Citrate (*Chemo) 10 Mg Tablet PO 20 mg DAILY RAYO Administration Vitamin D 25 mcg 06/15/25 09:00 06/15/25 08:27 Cholecalciferol (Vitamin D3) 25 Mcg (1,000 Units) Tablet PO 25 mcg DAILY RAYO Administration Radiology Results: ITS Impressions Soft Tissue Neck CT 06/14/25 09:14 IMPRESSION: Extensive lymphadenopathy which appears to be necrotizing in the right supraclavicular region and extending into the mediastinum below the field of view. Other findings as above. Chest CTA 06/14/25 10:01 IMPRESSION: 1. Extensive malignant-appearing lymphadenopathy throughout the mediastinum, and numerous bilateral lung nodules consistent with advanced metastatic disease. The vascular pedicle is almost completely encased in lymphadenopathy/tumor. Airway and arterial structures are patent. 2. No pulmonary emboli or thoracic aortic aneurysm/dissection. 3. 3 cm mass in the right breast soft tissues. Labs Labs: Laboratory Results - last 24 hr 06/14/25 06/14/25 06/15/25 12:18 19:22 04:32 WBC 7.0 RBC 2.27 L Hgb 8.7 L 8.2 L Hct 26.6 L 25.4 L MCV 111.9 H MCH 36.1 H MCHC 32.3 RDW 24.2 H Plt Count 159 MPV 10.2 Immature Gran % (Auto) 0.4 Neut % (Auto) 82.7 H Lymph % (Auto) 6.2 L [place] % (Auto) 7.1 Eos % (Auto) 3.0 Baso % (Auto) 0.6 Lymph # (Auto) 0.43 L [place] # (Auto) 0.5 Eos # (Auto) 0.2 Baso # (Auto) 0.0 Abs Immat Gran (auto) 0.03 Absolute Neuts (auto) 5.8 Absolute Nucleated RBC 0.000 Band Neutrophils % Not Reportable Nucleated RBC % 0.0 Platelet Estimate Adequate Hypochromasia 1+ Anisocytosis 1+ [place] Cells 1+ Schistocytes None seen Sodium 138 Potassium 3.4 Chloride 108 H Carbon Dioxide 25 Anion Gap 5 BUN 5 L D Creatinine 0.57 L Estim Creat Clear Calc 75 Estimated GFR > 60 Glucose 97 Calcium 9.1 Blood Type A Positive Antibody Screen Negative Crossmatch See Detail Quality VTE Prophylaxis VTE prophylaxis: pharmacologic ordered
--- NOTE | 2025-06-15 13:32 | PCSTNOTE ---
Addendum entered by Nidia Chen, DESIGN ENGINEERING TECHNICIAN 06/15/25 13:39: At this time, no further treatment from speech therapy is recommended. Patient appears to tolerate a regular diet with thin liquids and could continue with current diet. Communication needs are being met verbally although with poor breath support. AAC/SGD (alternative augmentative communication/speech generating device) options may be considered if verbal communication deteriorates. Original Note: Please refer to the Bedside Swallow Evaluation in the EMR. Please note, silent aspiration cannot be ruled out at bedside.
[2025-06-15 14:00] VITALS: BP 110/34; PULSE 72; RESP 16; TEMP 36.7; O2SAT 97
[2025-06-15] MEDS: RIVAROXABAN 20 MG TABLET PO (17:50)
[2025-06-15] MEDS: MONTELUKAST SODIUM 10 MG TABLET PO (17:50)
--- NOTE | 2025-06-15 18:36 | WPDONCCN ---
Assessment and Plan Assessment and plan (1) Metastatic malignant neoplasm to breast: Code(s): C79.81 - Secondary malignant neoplasm of breast Status: Chronic Assessment and Plan: Patient was recently diagnosed with metastatic breast cancer status post right supraclavicular lymph node biopsy performed on May 10, 2025. Unfortunately she was also diagnosed with myelodysplastic syndrome status post bone marrow aspiration and biopsy done on May 24, 2025. Due to her MDS treatment for her metastatic breast cancer are limited. My plan was to start treatment with Faslodex after discharge from the hospital and eventually once hemoglobin improves, we will add CDK4 inhibitors like Ibrance. My plan was also to start treatment for myelodysplastic syndrome with hypomethylating agent. I have discussed this with the patient and the in detail. Hopefully she will be able to start treatment next week. Continue supportive blood transfusion in the meantime. HPI Data of Consult Date/Time: 06/15/25 18:36 Requesting Physician: Milo Jolley MD Primary Care Provider: Susan Ayala DO Consult Narrative Narrative: Racquel Thomas is a 64 year old female with diagnosis of metastatic breast cancer status post supraclavicular lymph node biopsy done on May 10, 2025. She was previously diagnosed with poorly differentiated breast cancer ER 50% positive GA negative HER2/chavo negative status post right breast biopsy in November of 2023. Patient recently have supraclavicular lymph node biopsy that confirmed the diagnosis of metastatic breast cancer. She was also diagnosed with myelodysplastic syndrome after the bone marrow biopsy was performed on May 24, 2025. Plan was to start treatment but unfortunately she got admitted to the hospital with generalized weakness. She was also having some shortness of breath and enlargement of the right neck lymphadenopathy. Patient is quite anxious and nervous today. She has some hoarseness of the voice as well. Patient has a history of previous stroke. CT scan finding reviewed that showed no evidence of pulmonary embolism. There was extensive lymphadenopathy which appears to be necrotizing in the right supraclavicular region and extending into the mediastinum. There was also extensive lymphadenopathy throughout the mediastinum and multiple bilateral lung nodules. 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 Residual left-sided weakness. Invasive ductal carcinoma of right breast, stage 3 Chronic pain syndrome Chronic back pain and lower extremity pain due to venous stasis ulcers. On long-term opioids and medical marijuana. Inflammatory bowel disease Seizure disorder Cerebral aneurysm Status post coiling. Surgical History Surgical History History of colostomy History of craniotomy Related to cerebral aneurysm rupture and hemorrhagic stroke at the age of 20. History of 2 sections History of hysterectomy Status post coil embolization of cerebral aneurysm Family History Family History Mother Diabetes mellitus Sibling Diabetes mellitus Cervical cancer Sibling Leukemia Sibling Lung cancer Sibling Liver cancer Sibling Lung cancer Other Family history of arthritis Family history of cancer Social History Social History Social History: Surrogate decision maker: Seymour Urias, . Code status: Full code. Smoking packs per day: 2 Smoking cigarettes per day: 40.0 Years smoked: 5 Smoking pack-years: 10.00 Smoking status: Former smoker Tobacco type: cigarettes Second hand tobacco smoke exposure: No Alcohol intake: never Substance use: never Substance use type: does not use Lack of Transportation: No Lack of Food: Never True Current Housing: I Have Housing Concerned About Future Housing: No Difficulty Paying Gas/Electric Bills: No Difficulty Paying for Meds: No Currently Unemployed: No Education: High School Diploma/GED Difficulty w/ Childcare or Family Care: No Living arrangements: with roommate(s) Additional living arrangements comments: Resides in [place] with her . Additional occupation/education comments: Disabled. Spiritual care concerns: No Meds Home Medications and Allergies Home Medications ?Medication ?Instructions ?Recorded ?Confirmed ?Type ferrous sulfate 324 mg (65 mg 324 mg PO BID 02/13/24 06/14/25 History iron) tablet,delayed release oxycodone 30 mg tablet 30 mg PO DAILY PRN Pain (Scale 02/13/24 06/14/25 History Score 7-10) mecobalamin (vitamin B12) 5,000 5,000 mcg PO DAILY 02/27/24 06/14/25 History mcg chewable tablet methadone 10 mg tablet 30 mg PO DAILY 07/23/24 06/14/25 History rivaroxaban 20 mg tablet (Xarelto) 20 mg PO DAILY #90 tabs 09/24/24 06/14/25 Rx cholecalciferol (vitamin D3) 25 25 mcg PO DAILY 10/28/24 06/14/25 History mcg (1,000 unit) capsule colostomy bags #15 ea 10/28/24 06/14/25 Rx furosemide 40 mg tablet 40 mg PO DAILY #90 tabs 10/28/24 06/14/25 Rx ostomy supplies 4 X 4 wafer #30 wafers 10/28/24 06/14/25 Rx tamoxifen 20 mg tablet 20 mg PO DAILY 11/12/24 06/14/25 History montelukast 10 mg tablet 10 mg PO QPM #90 tabs 02/23/25 06/14/25 Rx doxycycline hyclate 100 mg capsule 100 mg PO BID 05/23/25 06/14/25 History Allergies Allergy/AdvReac Type Severity Reaction Status Date / Time No Known Allergies Allergy Verified 06/14/25 16:40 Vital Signs Vital Signs - 24 hr 06/14/25 20:00 06/14/25 21:17 06/15/25 05:58 Temperature 37.3 C 36.8 C Pulse Rate 80 80 74 Respiratory Rate 20 20 20 Blood Pressure 124/60 130/60 Pulse Oximetry 95 95 93 Oxygen Delivery Room Air 06/15/25 14:00 Temperature 36.7 C Pulse Rate 72 Respiratory Rate 16 Blood Pressure 110/34 L Pulse Oximetry 97 Oxygen Delivery Exam Narrative: Lungs are clear to auscultation bilaterally Cardiovascular regular rate rhythm no murmurs Abdomen soft nontender nondistended Extremities no edema Prominent right neck lymphadenopathy noted Results Labs 06/15/25 04:32 06/15/25 04:32 Labs: Short CBC 06/14/25 06/15/25 Range/Units 19:22 04:32 WBC 7.0 (4.5-10.0) K/mm3 Hgb 8.7 L 8.2 L (12.0-15.0) g/dL Hct 26.6 L 25.4 L (37.0-47.0) % Plt Count 159 (150-375) k/mm3 [facility] 06/15/25 04:32 Sodium 138 Potassium 3.4 Chloride 108 H Carbon Dioxide 25 BUN 5 L D Creatinine 0.57 L Glucose 97 Calcium 9.1
[2025-06-15 20:00] VITALS: PULSE 72; RESP 16; O2SAT 97
[2025-06-15 22:00] VITALS: BP 109/50; PULSE 70; RESP 16; TEMP 36.6; O2SAT 98
[2025-06-15 22:52] VITALS: O2SAT 98
[2025-06-16] MEDS: OXYCODONE HCL 10 MG 30 MG PO (04:18)
[2025-06-16] MEDS: CENTRAL LINE FLUSH 10 ML IV PUSH ×2 (05:47→14:19)
[2025-06-16 05:49] VITALS: BP 111/54; PULSE 72; RESP 18; TEMP 37.2; O2SAT 99
[2025-06-16] MEDS: CHOLECALCIFEROL (VITAMIN D3) 25 MCG (1,000 UNITS) TABLET PO (10:11)
[2025-06-16] MEDS: FERROUS SULFATE 325 MG TABLET PO (10:11)
[2025-06-16] MEDS: TAMOXIFEN CITRATE (*CHEMO) 10 MG TABLET 20 MG PO (10:11)
[2025-06-16] MEDS: DOXYCYCLINE HYCLATE 100 MG TABLET PO (10:11)
[2025-06-16] MEDS: CYANOCOBALAMIN 1,000 MCG TABLET 5000 MCG PO (10:11)
[2025-06-16 10:15] VITALS: BP 86/47
--- NOTE | 2025-06-16 13:23 | P.DS_ITS ---
DS: Admitting Diagnosis Discharge Date 06/16 Admitting Diagnosis dysphagia, weakness DS: Discharge Diagnosis Discharge Diagnosis (1) Supraclavicular mass: Code(s): R22.2 - Localized swelling, mass and lump, trunk Status: Acute (2) Urinary retention: Code(s): R33.9 - Retention of urine, unspecified Status: Acute (3) Venous stasis ulcers of both lower extremities: Code(s): I83.019 - Varicose veins of right lower extremity with ulcer of unspecified site; I83.029 - Varicose veins of left lower extremity with ulcer of unspecified site; L97.919 - Non-pressure chronic ulcer of unspecified part of right lower leg with unspecified severity; L97.929 - Non-pressure chronic ulcer of unspecified part of left lower leg with unspecified severity Status: Chronic (4) Chronic pain syndrome: Code(s): G89.4 - Chronic pain syndrome Status: Chronic (5) Goals of care, counseling/discussion: Code(s): Z71.89 - Other specified counseling Status: Acute (6) Anemia associated with chemotherapy: Code(s): D64.81 - Anemia due to antineoplastic chemotherapy; T45.1X5A - Adverse effect of antineoplastic and immunosuppressive drugs, initial encounter Status: Chronic DS: Summary Hospital Course Hospital Course: 64-year-old female with a past medical history of metastatic breast ca, PAD, DVT, HLD, incarcerated ventral hernia S/P ostomy, 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 Patient has poor health literacy and is a poor historian. Patient [facility] and [facility], making it difficult to track her care. She was recently hospitalized from 04/14-04/21 at [facility] for sepsis due to her BL LE ulcers. She underwent debridement on 04/20 and was treated with PO abx. Patient did undergo a bone marrow biopsy on 05/24 and she did have a biopsy of her right supraclavicular mass on 05/10 (the results are not consistent with her previous breast ca). Unclear what biopsy the patient had on 06/07. Her and her boyfriend at the bedside state they believe she had ?something put down her throat during the biopsy and at first attributed her dysphagia and hoarseness to that. Patient denies any recent fevers. She does have chronic pain from her back and her chronic leg ulcers. When the patient began speaking her voice is clear but quiet. It quickly fades to barely a whisper. Patient eating dinner during my assessment without difficulty or coughing. Patient states she is able to take her medications but she had choked on a piece of ice this morning. Initial vital signs 105/53, HR 79, respirations 12, afebrile and 100% on room air. Hematology with no leukocytosis. Hemoglobin 7.7 with improvement 8.7 post 1 unit PRBC. Total bilirubin 1.8, AST 50, alk-phos 148. CT soft tissue neck reads extensive lymphadenopathy which appears to be necrotizing in the right supraclavicular region and extending into the mediastinum below the field of view. CTA chest reads trace pericardial effusion, extensive malignant appearing lymphadenopathy throughout the mediastinum and numerous bilateral lung nodules consistent with advanced metastatic disease. The vascular pedicle is almost completely encased in lymphadenopathy/tumor. Airway and arterial structures are patent. No pulmonary emboli or dissection. 3 cm mass in the right chest wall soft tissue. Oncology was consulted. Patient was recently diagnosed with metastatic breast cancer status post right supraclavicular lymph node biopsy performed on May 10, 2025. Unfortunately she was also diagnosed with myelodysplastic syndrome status post bone marrow aspiration and biopsy done on May 24, 2025. Due to her MDS treatment for her metastatic breast cancer are limited. My plan was to start treatment with Faslodex after discharge from the hospital and eventually once hemoglobin improves, we will add CDK4 inhibitors like Ibrance. My plan was also to start treatment for myelodysplastic syndrome with hypomethylating agent. I have discussed this with the patient and the in detail. Hopefully she will be able to start treatment next week. Continue supportive blood t ransfusion in the meantime. Speech was consulted and pt did well. She was able to swallow and eat food without difficulties. Discussed the need for PT/OT and pt states she is fine for now and does not have any needs. She was stable for discharge - hg/hct 8.2/25.4 Status at Discharge Functional status at discharge: independent ambulation Overall status at discharge: patient is progressing back to baseline Time Spent with Patient Time attestation: Total time spent providing and/or coordinating discharge services: Time spent: Greater than 30 minutes Exam Narrative: GENERAL: Chronically ill-appearing HEAD: Normocephalic, atraumatic. EYES: PERRLA. Conjunctivae clear. NOSE: Normal no drainage. THROAT: Pharynx clear, no exudate. NECK: Obvious lymphadenopathy to the right subclavicular region. Tender with palpation RESPIRATORY: Airway patent, respirations nonlabored. Diminished bilaterally CARDIOVASCULAR: Regular rate and rhythm BREASTS: Previous right mastectomy GASTROINTESTINAL: Abdomen is soft and nontender. No organomegaly. Bowel sounds normal in all quadrants. GENITOURINARY: Distended bladder MUSCULOSKELETAL: Left-sided weakness SKIN: Warm, dry, normal color. NEURO: A&O X4. Speech clear PSYCHIATRIC: Normal interaction Const: General: comfortable Discharge Plan Discharge Attending physician on discharge: Rafael Wu Consulting providers: Sascha Donohue Discharging Clinician: Eloisa Bailey Patient Disposition: Home Activity: may shower Diet: regular Discharge Instructions: Please f/u with DR Donohue. Come back to ed if chest pain, shortness of breath, increased weakness, unable to eat/drink, and/or any new and worrisome symptoms. Patient Instructions: Antibiotic Form Patient Language: Northern Irish Stand Alone Forms: General Discharge Information Follow-up/Referrals: Sascha Donohue MD [Physician, Hematology] - 1 Week Susan Ayala DO [Primary Care Provider, Family Practice] - 2 Weeks Discharge Medications: Continued oxycodone 30 mg tablet 30 mg PO DAILY PRN (Reason: Pain (Scale Score 7-10)) Patient Comments: . ferrous sulfate 324 mg (65 mg iron) Tablet,Delayed Release (Dr/Ec) 324 mg PO BID Patient Comments: . tamoxifen 20 mg tablet 20 mg PO DAILY Patient Comments: . methadone 10 mg tablet 30 mg PO DAILY Patient Comments: . cholecalciferol (vitamin D3) 25 mcg (1,000 unit) capsule 25 mcg PO DAILY Patient Comments: . furosemide 40 mg tablet 40 mg PO DAILY Qty: 90 2RF Patient Comments: . (DME) ostomy supplies 4 X 4 wafer See Rx Instructions .Route Qty: 30 12RF Rx Instructions: Used daily around stoma. (DME) colostomy bags Misc See Rx Instructions .Route Qty: 15 12RF Rx Instructions: Use daily. montelukast 10 mg tablet 10 mg PO QPM Qty: 90 2RF Patient Comments: . mecobalamin (vitamin B12) 5,000 mcg Tablet,Chewable 5,000 mcg PO DAILY Patient Comments: .. doxycycline hyclate 100 mg capsule 100 mg PO BID Patient Comments: . Xarelto 20 mg tablet 20 mg PO DAILY Qty: 90 2RF Rx Instructions: must administer with evening meal Date of admission: 06/16/25 09:26 Primary Care Provider: Susan Ayala Admitting Provider: Milo Jolley Attending physician on admission: Milo Jolley Condition: Guarded Prognosis Quality VTE Prophylaxis VTE prophylaxis: pharmacologic ordered Hospitalist MIPS Heart Failure (Exclusion) Patient has history of Heart Transplant or Left Ventricular Assistive Device?: No IF YES, STOP HERE Heart Failure (Qualifier) Patient has current or prior documentation of LVEF less than or equal to 40%, or mod/servere depressed LVSF?: No IF NO, STOP HERE
[2025-06-16] MEDS: methADONE HCL (*CRX) 10 MG TABLET 30 MG PO (14:20)
--- NOTE | 2025-06-16 14:21 | PC.NURSE ---
RN notified Eloisa about patient's BP before medication administration. RN held [employer].
--- OUTSIDE RECORDS SUMMARY | 2025-06-22 18:00 | XMS_ITS | Clinical Summary ---
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 Care Sugar Controller Name Role Phone RUPERTO DEE RIKYGABINO Unavailable Unavailable [place] CONWAY, TYLER Unavailable Unavailable Payers Payer Name Policy Type Policy Number Effective Date Expira tion Date [facility].[id number] Problems Condition Name Condition Details Condition Category Status Onset Date Resolution Date Last Treatment Date Treating Clinician Comments VENOUS INSUFFICIENC Y (CHRONIC) (PERIPHERAL) Active 2024-06 00:00: 00 NON-PRS CHRONIC ULCER OF RIGHT ANKLE LIMITED TO BRKDWN SKIN Active 2024-06 00:00: 00 NON-PRS CHRONIC ULCER OF LEFT ANKLE LIMITED TO BRKDWN SKIN Active 2024-06 00:00: 00 CELLULITIS OF RIGHT LOWER LIMB Active 2024-06 00:00: 00 CELLULITIS OF LEFT LOWER LIMB Active 2024-06 016 00:00: 00 MALIGNANT NEOPLASM OF UNSP SITE OF RIGHT FEMALE BREAST Active 2024-06 00:00: 00 METHICILLIN RESIS STAPH INFCT CAUSING DISEASES CLASSD ELSWHR Active 2024-06 0-16 00:00: 00 OTH BACTERIAL AGENTS THE CAUSE OF DISEASES CLASSD ELSWHR Active 2024-06 0-16 00:00: 00 GANGRENE, NOT ELSEWHERE CLASSIFIED Active 2024-06 0-09 00:00: 00 METABOLIC ENCEPHALOPAT HY Active 2024-06 0-16 00:00: 00 HYPOTENSION, UNSPECIFIED Active 2024-06 0-16 00:00: 00 ACUTE POSTHEMORRHA GIC ANEMIA Active 2024-06 0-16 00:00: 00 MODERATE PROTEIN-SYMONE UZMA MALNUTRITION Active 2024-06 0-16 00:00: 00 OTHER SPECIFIED CARDIAC ARRHYTHMIAS Active 06-30 00:00: 00 UNSP INTESTNL OBST, UNSP TO PARTIAL VERSUS COMPLETE OBST Active 06-30 00:00: 00 ATHSCL HEART DISEASE OF [place] CORONARY ARTERY W/O ANG PCTRS Active 06-30 00:00: 00 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 06-30 00:00: 00 PERIPHERAL VASCULAR DISEASE, UNSPECIFIED Active 06-30 00:00: 00 UNSPECIFIED DIASTOLIC (CONGESTIVE) HEART FAILURE Active 06-30 00:00: 00 OTHER PULMONARY EMBOLISM WITHOUT ACUTE COR PULMONALE Active 06-30 00:00: 00 HYPERLIPIDEM IA, UNSPECIFIED Active 06-30 00:00: 00 PAIN IN UNSPECIFIED JOINT Active 06-30 00:00: 00 DISORDER OF ARTERIES AND ARTERIOLES, UNSPECIFIED Active 06-30 00:00: 00 CONDUCTION DISORDER, UNSPECIFIED Active 06-30 00:00: 00 UNSPECIFIED LUMP IN UNSPECIFIED BREAST Active 06-30 00:00: 00 OTHER AND UNSP VENTRAL HERNIA WITH OBSTRUCTION, W/O GANGRENE Active 06-30 00:00: 00 OTHER SPECIFIED DISEASE OF ESOPHAGUS Active 06-30 00:00: 00 UNSPECIFIED CONVULSIONS Active 06-30 00:00: 00 DYSPHAGIA, UNSPECIFIED Active 06-30 00:00: 00 DIZZINESS AND GIDDINESS Active 06-30 00:00: 00 RETENTION OF URINE, UNSPECIFIED Active 06-30 00:00: 00 COLOSTOMY STATUS Active 06-30 00:00: 00 PERSONAL HISTORY OF OTHER VENOUS THROMBOSIS AND EMBOLISM Active 06-30 00:00: 00 AIR DISPATCHER (CURRENT) USE OF ANTICOAGULAN TS Active 06-30 00:00: 00 PRESENCE OF CORONARY ANGIOPLASTY IMPLANT AND GRAFT Active 06-30 00:00: 00 PRESENCE OF OTHER VASCULAR IMPLANTS AND GRAFTS Active 06-30 00:00: 00 AIR DISPATCHER (CURRENT) USE OF OPIATE ANALGESIC Active 06-30 00:00: 00 Allergies, Adverse Reactions, Alerts Allergy Name Allergy Type Status Severity Reaction(s) Onset Date Inactive Date Treating Clinician Comments NO KNOWN ALLERGIES Propensity to adverse reactions Active 2024-06 16:51: 18 Medications Ordered Medication Name Filled Medication Name Start Date Stop Date Current Medication? Ordering Clinician Indication Dosage Frequency Signature (SIG) Comments Components ciprofloxac in 500 mg tablet 2024-06 00:00: 00 Yes [id number] SEPSIS Per instruc tions 2 TIMES DAILY Per instructio ns 2 TIMES DAILY (route: oral) Med Classific ation: Anti-Infe ctive Agents doxycycline hyclate 100 mg capsule 2024-06 016 00:00: 00 Yes [id number] SEPSIS Per instruc tions 2 TIMES DAILY Per instructio ns 2 TIMES DAILY (route: oral) Med Classific ation: Anti-Infe ctive Agents Xarelto 20 mg tablet 2024-06 0-04 00:00: 00 Yes [id number] BLOOD THINNER Per instruc tions DAILY Per instructio ns DAILY (route: oral) Med Classific ation: Hematolog ical Agents oxycodone 30 mg tablet 2024-06 0 00:00: 00 Yes [id number] PAIN Per instruc tions 2 TIMES DAILY Per instructio ns 2 TIMES DAILY (route: oral) Med Classific ation: Analgesic , Anti-infl ammatory or Antipyret ic methadone 10 mg tablet 2024-06 00:00: 00 Yes [id number] PAIN Per instruc tions 2 TIMES DAILY Per instructio ns 2 TIMES DAILY (route: oral) Med Classific ation: Analgesic , Anti-infl ammatory or Antipyret ic potassium chloride 1 mEq/mL oral syrup 2024-06 00:00: 00 Yes [id number] LOW POTASSIUM 1.3 mEq DAILY 1.3 mEq DAILY (route: oral) Med Classific ation: Electroly te Balance-N utritiona l Products tamoxifen 20 mg tablet 2024-06 00:00: 00 Yes [id number] CANCER 20 mg DAILY 20 mg DAILY (route: oral) Med Classific ation: Antineopl astics CIPRO ORAL 2016-06 00:00: 00 06-05 00:00 [...] CTIVE AGENTS CEPHALEXIN ORAL 2016-06 00:00: 00 05-23 10:19 :30 No 500 mg1 CAPSULE [...] Observation Time Observation Value Commen ts Temperature 2025-06-13 11:58:00.000 97.4 [degF] Temperature 2025-06-06 16:33:00.000 98.7 [degF] Temperature 2025-05-30 11:24:00.000 97 [degF] Temperature 2025-05-23 12:31:00.000 98.4 [degF] Temperature 2025-05-17 19:29:00.000 98.1 [degF] Temperature 2025-05-13 13:40:00.000 97 [degF] Temperature 2025-05-09 15:11:00.000 97.9 [degF] Temperature 2025-05-05 09:54:00.000 98 [degF] Temperature 2025-05-02 14:48:00.000 97.6 [degF] Temperature 2025-04-26 10:13:00.000 98.2 [degF] BMI (%) 2025-04-26 10:13:00.000 21 kg/m2 Height 2025-04-26 10:13:00.000 71 [in_us] Pulse 2025-06-13 11:58:00.000 71 /min Pulse 2025-06-06 16:33:00.000 81 /min Pulse 2025-05-30 11:24:00.000 88 /min Pulse 2025-05-23 12:31:00.000 82 /min Pulse 2025-05-17 19:29:00.000 83 /min Pulse 2025-05-13 13:40:00.000 70 /min Pulse 2025-05-09 15:11:00.000 85 /min Pulse 2025-05-05 09:54:00.000 65 /min Pulse 2025-05-02 14:48:00.000 79 /min Pulse 2025-04-26 10:13:00.000 73 /min O2 Saturation (%) 2025-06-06 16:33:00.000 97 % O2 Saturation (%) 2025-05-30 11:24:00.000 100 % O2 Saturation (%) 2025-05-23 12:31:00.000 98 % O2 Saturation (%) 2025-04-26 10:13:00.000 96 % Respirations 2025-06-13 11:58:00.000 16 /min Respirations 2025-06-06 16:33:00.000 16 /min Respirations 2025-05-30 11:24:00.000 16 /min Respirations 2025-05-23 12:31:00.000 16 /min Respirations 2025-05-17 19:29:00.000 16 /min Respirations 2025-05-13 13:40:00.000 18 /min Respirations 2025-05-09 15:11:00.000 20 /min Respirations 2025-05-05 09:54:00.000 20 /min Respirations 2025-05-02 14:48:00.000 20 /min Respirations 2025-04-26 10:13:00.000 16 /min Weight (lbs) 2025-05-23 12:33:00.000 155 [lb_av] Weight (lbs) 2025-04-26 10:13:00.000 157 [lb_av] Systolic Blood Pressure 2025-06-13 11:58:00.000 110 mm [Hg] Systolic Blood Pressure 2025-06-06 16:33:00.000 122 mm [Hg] Systolic Blood Pressure 2025-05-30 11:24:00.000 124 mm [Hg] Systolic Blood Pressure 2025-05-23 12:31:00.000 102 mm [Hg] Systolic Blood Pressure 2025-05-17 19:29:00.000 120 mm [Hg] Systolic Blood Pressure 2025-05-13 13:40:00.000 118 mm [Hg] Systolic Blood Pressure 2025-05-09 15:11:00.000 124 mm [Hg] Systolic Blood Pressure 2025-05-05 09:54:00.000 112 mm [Hg] Systolic Blood Pressure 2025-05-02 14:48:00.000 120 mm [Hg] Systolic Blood Pressure 2025-04-26 10:13:00.000 100 mm [Hg] Diastolic Blood Pressure 2025-06-13 11:58:00.000 70 mm [Hg] Diastolic Blood Pressure 2025-06-06 16:33:00.000 70 mm [Hg] Diastolic Blood Pressure 2025-05-30 11:24:00.000 72 mm [Hg] Diastolic Blood Pressure 2025-05-23 12:31:00.000 78 mm [Hg] Diastolic Blood Pressure 2025-05-17 19:29:00.000 60 mm [Hg] Diastolic Blood Pressure 2025-05-13 13:40:00.000 62 mm [Hg] Diastolic Blood Pressure 2025-05-09 15:11:00.000 82 mm [Hg] Diastolic Blood Pressure 2025-05-05 09:54:00.000 62 mm [Hg] Diastolic Blood Pressure 2025-05-02 14:48:00.000 82 mm [Hg] Diastolic Blood Pressure 2025-04-26 10:13:00.000 60 mm [Hg] Plan of Treatment Planned Activity Planned Date Details Comments Future Scheduled Test SN 1WK1,2W K2,1WK6 FALL REDUCTION MANAGEMENT; RN TO ASSESS AND OBSERVE, ASSESSOR/ADMIN PROG COORD TO OBSERVE FALL RISK FACTORS AND EDUCATE PATIENT/CAREGIVER ON STRATEGIES TO MINIMIZE THE RISK OF FALLING. [code = SN 1WK1,2WK2,1WK6 FALL REDUCTION MANAGEMENT; RN TO ASSESS AND OBSERVE, ASSESSOR/ADMIN PROG COORD TO OBSERVE FALL RISK FACTORS AND EDUCATE PATIENT/CAREGIVER ON STRATEGIES TO MINIMIZE THE RISK OF FALLING.] Future Scheduled Test NEUROLOGIC AL SYSTEM MANAGEMENT; RN TO ASSESS AND TEACH, ADMIN PROG COORD/ASSESSOR TO OBSERVE AND TEACH RELATED TO ALTERED NEUROLOGICAL STATUS TO MINIMIZE COMPLICATIONS AND REDUCE HOSPITALIZATION. [code = NEUROLOGICAL SYSTEM MANAGEMENT; RN TO ASSESS AND TEACH, ADMIN PROG COORD/ASSESSOR TO OBSERVE AND TEACH RELATED TO ALTERED NEUROLOGICAL STATUS TO MINIMIZE COMPLICATIONS AND REDUCE HOSPITALIZATION.] Future Scheduled Test CEREBRAL V ASCULAR ACCIDENT MANAGEMENT; RN/ADMIN PROG COORD/ASSESSOR TO PROVIDE SKILLED TEACHING AND MANAGEMENT OF POST CEREBRAL VASCULAR ACCIDENT. [code = CEREBRAL VASCULAR ACCIDENT MANAGEMENT; RN/ADMIN PROG COORD/ASSESSOR TO PROVIDE SKILLED TEACHING AND MANAGEMENT OF POST CEREBRAL VASCULAR ACCIDENT.] Future Scheduled Test SEIZURE DI SORDER MANAGEMENT; RN/ADMIN PROG COORD/ASSESSOR TO PROVIDE INSTRUCTION REGARDING MANAGEMENT OF SEIZURE DISORDER AND SEIZURE PRECAUTIONS. [code = SEIZURE DISORDER MANAGEMENT; RN/ADMIN PROG COORD/ASSESSOR TO PROVIDE INSTRUCTION REGARDING MANAGEMENT OF SEIZURE DISORDER AND SEIZURE PRECAUTIONS.] Future Scheduled Test ANEMIA MAN AGEMENT; RN TO ASSESS AND TEACH, ADMIN PROG COORD/ASSESSOR TO OBSERVE AND TEACH AND PROVIDE EDUCATION ON ANEMIA. [code = ANEMIA MANAGEMENT; RN TO ASSESS AND TEACH, ADMIN PROG COORD/ASSESSOR TO OBSERVE AND TEACH AND PROVIDE EDUCATION ON ANEMIA.] Future Scheduled Test RN TO OBSE RVE, ASSESS, EVALUATE, AND DEVELOP AN INDIVIDUALIZED PLAN OF CARE. AGENCY MAY ACCEPT ORDERS FROM CONSULTING PHYSICIANS . RN TO OBSERVE AND ASSESS, ASSESSOR/ADMIN PROG COORD TO OBSERVE FOR RISK FOR FALLS AND INSTRUCT IN FALL PREVENTION, HOME SAFETY, MEDICATION MANAGEMENT, INFECTION PREVENTION, AND NUTRITION MANAGEMENT. AGENCY MAY PERFORM A RESUMPTION OF CARE VISIT FOLLOWING ANY HOSPITAL ADMISSION. RN/ASSESSOR/ADMIN PROG COORD TO MONITOR CO-MORBID CONDITIONS LISTED ON THE PLAN OF CARE AND ANY NEW CONDITIONS THAT PRESENT THEMSELVES DURING THIS EPISODE TO IDENTIFY CHANGES AND INTERVENE TO MINIMIZE COMPLICATIONS. [code = RN TO OBSERVE, ASSESS, EVALUATE, AND DEVELOP AN INDIVIDUALIZED PLAN OF CARE. AGENCY MAY ACCEPT ORDERS FROM CONSULTING PHYSICIANS . RN TO OBSERVE AND ASSESS, ASSESSOR/ADMIN PROG COORD TO OBSERVE FOR RISK FOR FALLS AND INSTRUCT IN FALL PREVENTION, HOME SAFETY, MEDICATION MANAGEMENT, INFECTION PREVENTION, AND NUTRITION MANAGEMENT. AGENCY MAY PERFORM A RESUMPTION OF CARE VISIT FOLLOWING ANY HOSPITAL ADMISSION. RN/ASSESSOR/ADMIN PROG COORD TO MONITOR CO-MORBID CONDITIONS LISTED ON THE PLAN OF CARE AND ANY NEW CONDITIONS THAT PRESENT THEMSELVES DURING THIS EPISODE TO IDENTIFY CHANGES AND INTERVENE TO MINIMIZE COMPLICATIONS.] Future Scheduled Test GASTROINTE STINAL MANAGEMENT; RN TO ASSESS AND TEACH, ADMIN PROG COORD/ASSESSOR TO OBSERVE AND TEACH RELATED TO ALTERED GASTROINTESTINAL STATUS TO MINIMIZE COMPLICATIONS AND REDUCE HOSPITALIZATION. [code = GASTROINTESTINAL MANAGEMENT; RN TO ASSESS AND TEACH, ADMIN PROG COORD/ASSESSOR TO OBSERVE AND TEACH RELATED TO ALTERED GASTROINTESTINAL STATUS TO MINIMIZE COMPLICATIONS AND REDUCE HOSPITALIZATION.] Future Scheduled Test MALNUTRITI ON MANAGEMENT; RN TO ASSESS AND TEACH, ADMIN PROG COORD/ASSESSOR TO OBSERVE AND TEACH AND INSTRUCT PATIENT / CAREGIVER ON INTERVENTIONS TO IMPROVE NUTRITIONAL INTAKE AND PATIENT WELLBEING. [code = MALNUTRITION MANAGEMENT; RN TO ASSESS AND TEACH, ADMIN PROG COORD/ASSESSOR TO OBSERVE AND TEACH AND INSTRUCT PATIENT / CAREGIVER ON INTERVENTIONS TO IMPROVE NUTRITIONAL INTAKE AND PATIENT WELLBEING.] Future Scheduled Test PAIN MANAG EMENT; RN TO ASSESS AND TEACH, ADMIN PROG COORD/ASSESSOR TO OBSERVE AND TEACH AND PROVIDE EDUCATION ON PAIN MANAGEMENT TECHNIQUES. [code = PAIN MANAGEMENT; RN TO ASSESS AND TEACH, ADMIN PROG COORD/ASSESSOR TO OBSERVE AND TEACH AND PROVIDE EDUCATION ON PAIN MANAGEMENT TECHNIQUES.] Future Scheduled Test RN TO ASSE SS AND TEACH, ASSESSOR/ADMIN PROG COORD TO OBSERVE AND TEACH FOR SIGNS AND SYMPTOMS OF SEPSIS AND/OR POST-SEPSIS SYNDROME AND INTERVENE TO MINIMIZE COMPLICATIONS. RN/ASSESSOR/ADMIN PROG COORD TO PROVIDE SKILLED TEACHING TO PATIENT/CAREGIVER ON SEPSIS AND SELF-MANAGEMENT TECHNIQUES. RN/ASSESSOR/ADMIN PROG COORD TO MONITOR PATIENT/CAREGIVER ADHERENCE TO MONITOR AND RECORD VITAL SIGNS INCLUDING TEMPERATURE, HEART RATE, RESPIRATIONS, AND SYMPTOMS. RN/ASSESSOR/ADMIN PROG COORD TO PROVIDE LONGTERM TO ACCOMPLISH THE PATIENT S PERSONAL GOAL OF DEVASTATING PAIN TO WOUNDS [code = RN TO ASSESS AND TEACH, ASSESSOR/ADMIN PROG COORD TO OBSERVE AND TEACH FOR SIGNS AND SYMPTOMS OF SEPSIS AND/OR POST-SEPSIS SYNDROME AND INTERVENE TO MINIMIZE COMPLICATIONS. RN/ASSESSOR/ADMIN PROG COORD TO PROVIDE SKILLED TEACHING TO PATIENT/CAREGIVER ON SEPSIS AND SELF-MANAGEMENT TECHNIQUES. RN/ASSESSOR/ADMIN PROG COORD TO MONITOR PATIENT/CAREGIVER ADHERENCE TO MONITOR AND RECORD VITAL SIGNS INCLUDING TEMPERATURE, HEART RATE, RESPIRATIONS, AND SYMPTOMS. RN/ASSESSOR/ADMIN PROG COORD TO PROVIDE LONGTERM TO ACCOMPLISH THE PATIENT S PERSONAL GOAL OF DEVASTATING PAIN TO WOUNDS] Future Scheduled Test RN/ASSESSOR/ADMIN PROG COORD TO PERFORM/TEACH VENOUS STASIS ULCER CARE TO BILATERAL LOWER EXTREMITIES AREA: IRRIGATE/CLEANSE WITH NORMAL SALINE, PAT DRY WITH GAUZE, APPLY POLYMEN MAX NON ABSORBENT DRESSING, MAY APPLY SKIN BARRIER TO PERIWOUND AREA PRN TO PREVENT SKIN MACERATION AND PROTECT PERIWOUND, COVER WITH ABD PADS, SECURE WITH KERLIX CHANGE DRESSING EVERY 3 DAYS AND PRN SN TO PERFORM ON DAYS OF SNV [code = RN/ASSESSOR/ADMIN PROG COORD TO PERFORM/TEACH VENOUS STASIS ULCER CARE TO [...] SNV] Future Scheduled Test COLOSTOMY/ ILEOSTOMY TEACHING/MANAGEMENT; RN/ADMIN PROG COORD/ASSESSOR TO INSTRUCT PATIENT/CAREGIVER ON COLOSTOMY/ILEOSTOMY MANAGEMENT INCLUDING APPLIANCE TYPE, USAGE, AND STOMAL CARE. RN/ADMIN PROG COORD/ASSESSOR MAY PERFORM OSTOMY APPLIANCE CHANGE AND STOMA CARE EACH VISIT NEEDED. [code = COLOSTOMY/ILEOSTOMY TEACHING/MANAGEMENT; RN/ADMIN PROG COORD/ASSESSOR TO INSTRUCT PATIENT/CAREGIVER ON COLOSTOMY/ILEOSTOMY MANAGEMENT INCLUDING APPLIANCE TYPE, USAGE, AND STOMAL CARE. RN/ADMIN PROG COORD/ASSESSOR MAY PERFORM OSTOMY APPLIANCE CHANGE AND STOMA CARE EACH VISIT NEEDED.] Future Scheduled Test PRN VISITS ; NUMBER OF RN/ASSESSOR/ADMIN PROG COORD VISITS: 1 RN/ASSESSOR/ADMIN PROG COORD TO PERFORM: WOUND CARE FOR THE FOLLOWING REASONS: STASIS ULCER [code = PRN VISITS; NUMBER OF RN/ASSESSOR/ADMIN PROG COORD VISITS: 1 RN/ASSESSOR/ADMIN PROG COORD TO PERFORM: WOUND CARE FOR THE FOLLOWING REASONS: STASIS ULCER] Future Scheduled Test CANCER MAN AGEMENT; RN TO ASSESS AND TEACH, ADMIN PROG COORD/ASSESSOR TO OBSERVE AND TEACH AND PROVIDE EDUCATION ON CANCER. [code = CANCER MANAGEMENT; RN TO ASSESS AND TEACH, ADMIN PROG COORD/ASSESSOR TO OBSERVE AND TEACH AND PROVIDE EDUCATION ON CANCER.] Future Scheduled Test RISK FOR H OSPITALIZATION; RN TO ASSESS/TEACH, ADMIN PROG COORD/ASSESSOR TO OBSERVE/TEACH PATIENT/CAREGIVER ON RISK FOR HOSPITALIZATION/EMERGENCY ROOM VISITS, TEACH SIGNS AND SYMPTOMS THAT PUT PATIENT AT RISK, WHEN TO NOTIFY NURSE/PHYSICIAN OF COMPLICATIONS/DECLINE, AND WHEN TO CALL 911. [code = RISK FOR HOSPITALIZATION; RN TO ASSESS/TEACH, ADMIN PROG COORD/ASSESSOR TO OBSERVE/TEACH PATIENT/CAREGIVER ON RISK FOR HOSPITALIZATION/EMERGENCY ROOM VISITS, TEACH SIGNS AND SYMPTOMS THAT PUT PATIENT AT RISK, WHEN TO NOTIFY NURSE/PHYSICIAN OF COMPLICATIONS/DECLINE, AND WHEN TO CALL 911.] Future Scheduled Test CARDIOVASC ULAR SYSTEM; RN TO ASSESS/TEACH, ASSESSOR/ADMIN PROG COORD TO OBSERVE/TEACH RELATED TO ALTERED CARDIOVASCULAR STATUS TO MINIMIZE COMPLICATIONS AND REDUCE HOSPITALIZATION. [code = CARDIOVASCULAR SYSTEM; RN TO ASSESS/TEACH, ASSESSOR/ADMIN PROG COORD TO OBSERVE/TEACH RELATED TO ALTERED CARDIOVASCULAR STATUS TO MINIMIZE COMPLICATIONS AND REDUCE HOSPITALIZATION.] Future Scheduled Test HEART FAIL URE; RN TO ASSESS/TEACH, ASSESSOR/ADMIN PROG COORD TO OBSERVE/TEACH CARDIOPULMONARY SYSTEM TO IDENTIFY SIGNS [...] [code = HEART FAILURE; RN TO ASSESS/TEACH, ASSESSOR/ADMIN PROG COORD TO OBSERVE/TEACH CARDIOPULMONARY SYSTEM TO IDENTIFY SIGNS [...] INTEG RITY RN TO ASSESS AND TEACH, ASSESSOR/ADMIN PROG COORD TO OBSERVE AND TEACH INTEGUMENTARY STATUS TO IDENTIFY CHANGES AND INTERVENE TO MINIMIZE COMPLICATIONS. PROVIDE SKILLED TEACHING OF GENERAL WOUND AND SKIN CARE AND PREVENTION RELATED TO POTENTIAL FOR OR ACTUAL ALTERED SKIN INTEGRITY [code = SKIN INTEGRITY RN TO ASSESS AND TEACH, ASSESSOR/ADMIN PROG COORD TO OBSERVE AND TEACH INTEGUMENTARY STATUS TO IDENTIFY CHANGES AND INTERVENE TO MINIMIZE COMPLICATIONS. PROVIDE SKILLED TEACHING OF GENERAL WOUND AND SKIN CARE AND PREVENTION RELATED TO POTENTIAL FOR OR ACTUAL ALTERED SKIN INTEGRITY] Future Scheduled Test RN TO ASSE SS AND TEACH, ASSESSOR/ADMIN PROG COORD TO OBSERVE AND TEACH, TREAT AND EDUCATE ON CELLULITIS SIGNS, SYMPTOMS, AND SELF-CARE MANAGEMENT. [code = RN TO ASSESS AND TEACH, ASSESSOR/ADMIN PROG COORD TO OBSERVE AND TEACH, TREAT AND EDUCATE ON CELLULITIS SIGNS, SYMPTOMS, AND SELF-CARE MANAGEMENT.] Future Scheduled Test HYPOTENSIO N MANAGEMENT; RN TO ASSESS AND TEACH/ ASSESSOR /ADMIN PROG COORD TO OBSERVE AND TEACH WARNING SIGNS AND SYMPTOMS TO AVOID HOSPITALIZATION. [code = HYPOTENSION MANAGEMENT; RN TO ASSESS AND TEACH/ ASSESSOR /ADMIN PROG COORD TO OBSERVE AND TEACH WARNING SIGNS AND SYMPTOMS TO AVOID HOSPITALIZATION.] Future Scheduled Test ARRHYTHMIA MANAGEMENT; RN TO ASSESS AND TEACH, ASSESSOR/ADMIN PROG COORD TO OBSERVE AND TEACH WARNING SIGNS AND SYMPTOMS TO AVOID HOSPITALIZATION. [code = ARRHYTHMIA MANAGEMENT; RN TO ASSESS AND TEACH, ASSESSOR/ADMIN PROG COORD TO OBSERVE AND TEACH WARNING SIGNS AND SYMPTOMS TO AVOID HOSPITALIZATION.] Future Scheduled Test MEDICATION MANAGEMENT; RN/ASSESSOR/ADMIN PROG COORD TO REVIEW MEDICATIONS FOR INTERACTIONS, EFFECTIVENESS OF DRUG THERAPY, AND SIGNS/SYMPTOMS OF ADVERSE REACTIONS. MAY INSTRUCT AND REINFORCE MEDICATION TEACHING RELATED TO THE USE OF MEDICATIONS, DOSAGE, FREQUENCY, PURPOSE, SIDE EFFECTS, AND TO REPORT COMPLICATIONS. [code = MEDICATION MANAGEMENT; RN/ASSESSOR/ADMIN PROG COORD TO REVIEW MEDICATIONS FOR INTERACTIONS, EFFECTIVENESS OF DRUG THERAPY, AND SIGNS/SYMPTOMS OF ADVERSE REACTIONS. MAY INSTRUCT AND REINFORCE MEDICATION TEACHING RELATED TO THE USE OF MEDICATIONS, DOSAGE, FREQUENCY, PURPOSE, SIDE EFFECTS, AND TO REPORT COMPLICATIONS.] Future Scheduled Test ANTITHROMB OTIC MANAGEMENT; RN TO ASSESS AND TEACH, ASSESSOR/ADMIN PROG COORD TO OBSERVE/TEACH/MONITOR EFFECTIVENESS OF ANTITHROMBOTIC THERAPY. RN/ASSESSOR/ADMIN PROG COORD TO INSTRUCT ON SIGNS AND SYMPTOMS OF BLEEDING/ADVERSE REACTIONS TO REPORT TO PHYSICIAN. PATIENT IS TAKING XARELTO, NO LAB MONITORING REQUIRED [code = ANTITHROMBOTIC MANAGEMENT; RN TO ASSESS AND TEACH, ASSESSOR/ADMIN PROG COORD TO OBSERVE/TEACH/MONITOR EFFECTIVENESS OF ANTITHROMBOTIC THERAPY. RN/ASSESSOR/ADMIN PROG COORD TO INSTRUCT ON SIGNS AND SYMPTOMS OF BLEEDING/ADVERSE REACTIONS TO REPORT TO PHYSICIAN. PATIENT IS TAKING XARELTO, NO LAB MONITORING REQUIRED] Future Scheduled Test RN TO ASSE SS/TEACH, ASSESSOR/ADMIN PROG COORD TO OBSERVE/TEACH SURGICAL AFTERCARE MANAGEMENT TO AVOID HOSPITALIZATION. [code = RN TO ASSESS/TEACH, ASSESSOR/ADMIN PROG COORD TO OBSERVE/TEACH SURGICAL AFTERCARE MANAGEMENT TO AVOID [...] Notes Progress Notes <paragraph>[Visit Date: 2024 by TYLER MCPHERSON RN]:</paragraph><paragraph>ARRIVE TO PATIENT HOME FOR LONGTERM VISIT PATIENTS SITTING AT TABLE IN DINING ROOM WITH OUTSIDE RESPIRATIONS OR EVEN IN NON LABORED LENGTH SOUNDS ARE CLEAR WITH DIMINISHED SPACES, PATIENT DINNERS, CHEST PAIN OR DISCOMFORTS ARE ACTIVE TIMES 4 QUADRANTS SHE HAS NON PETTING EDEMA TO BILATERAL LOWER. EXTREMITIES FROM KNEE TO TOES. DEMONSTRATED PROPER WOUND CARE , ALTHOUGH HE DID FORGET TO PUT THE</paragraph><paragraph> A B D DRESSING OVER POLYMEN. SHE REPORTS HER APPETITE IS FAIR, NO FALLS SINCE LAST SKILLED NURSE VISIT. INSTRUCTED TO CALL ADORATION WITH ANY QUESTIONS OR CONCERNS , AND PHONE NUMBER IS ON COVER A BOOK</paragraph> Encounters Start Date/Time End Date/Time Encounter Type Admission Type Attending [facility] Department Encounter ID Discharge Date Discharge Status Discharge Condition Discharge Reason Percent Goals Met 2025-04-25 00:00:00 2025-06-23 00:00:00 Outpatient TYLER PARKER [facility] [id number]
== END 2025-06-16 15:17 | disposition home or self-care (01) | DRG 841 ==
LOC: ANHED 13:02 → ANH3MEDSUR 14:05 → ANH2MED 14:50
PROVIDERS: Nurse Practitioner Adult Health; Admitting Provider Internal Medicine; Emergency Provider Emergency Medicine; PCP Family Medicine; Visit Provider Nurse Practitioner
DX: C77.0 Secondary and unspecified malignant neoplasm of lymph nodes of head, face and neck (principal); C78.01 Secondary malignant neoplasm of right lung; I69.354 Hemiplegia and hemiparesis following cerebral infarction affecting left non-dominant side; I83.218 Varicose veins of right lower extremity with both ulcer of other part of lower extremity and inflammation; I83.228 Varicose veins of left lower extremity with both ulcer of other part of lower extremity and inflammation; L97.819 Non-pressure chronic ulcer of other part of right lower leg with unspecified severity; L97.829 Non-pressure chronic ulcer of other part of left lower leg with unspecified severity; I31.39 Other pericardial effusion (noninflammatory); C77.1 Secondary and unspecified malignant neoplasm of intrathoracic lymph nodes; C50.911 Malignant neoplasm of unspecified site of right female breast; D46.9 Myelodysplastic syndrome, unspecified; R13.10 Dysphagia, unspecified; G89.4 Chronic pain syndrome; T45.1X5A Adverse effect of antineoplastic and immunosuppressive drugs, initial encounter; I25.10 Atherosclerotic heart disease of native coronary artery without angina pectoris; R33.9 Retention of urine, unspecified; G89.3 Neoplasm related pain (acute) (chronic); E78.5 Hyperlipidemia, unspecified; K43.9 Ventral hernia without obstruction or gangrene; Z66 Do not resuscitate; Z86.718 Personal history of other venous thrombosis and embolism; Z87.891 Personal history of nicotine dependence; Z79.891 Long term (current) use of opiate analgesic; Z79.01 Long term (current) use of anticoagulants; Z86.79 Personal history of other diseases of the circulatory system; Z79.60 Long term (current) use of unspecified immunomodulators and immunosuppressants
CPT/HCPCS: 36415; 36430; 70491; 71275; 80048; 80053; 83605; 85014; 85018; 85025; 86850; 86900; 86901; 86923; 92507; 92610; 96361; 96374; 96375; 99212; 99285; A9270; G0378; G0463; J1171; J1642; J2250; J7050; J7120; P9016; Q9967